=== PATIENT | female | born 1990 | race Hispanic/Latino ===

== ENCOUNTER 2019-08-11 12:10 | Emergency (ER) | payer OTHER, SELFPAY ==
--- NOTE | ~2019-08-11 | US_ITS ---
US right upper quadrant INDICATION: Right upper quadrant pain PROCEDURE: Realtime right upper abdominal ultrasound. COMPARISON: No prior studies for comparison. FINDINGS: The pancreas is normal without focal mass or pancreatic ductal dilation. Liver echotexture is normal without focal mass or intrahepatic biliary dilatation. There is normal directional flow i n the portal vein. There are gallstones with mild gallbladder wall thickening. Common bile duct measures 3 mm. No sono graphic Reynaga's sign. IMPRESSION: 1: Cholelithiasis with mild gallbladder wall thickening. Reviewed, dictated and finalized at location A.
[2019-08-11 12:12] VITALS: BP 98/71; PULSE 65; RESP 16; TEMP 36.1; O2SAT 100
--- NOTE | 2019-08-11 12:43 | ED.ABDPAIN ---
HPI - Abdominal Pain General Chief Complaint: Abdominal Pain Stated Complaint: abd pain Time Seen by Provider: 08/11/19 12:26 Source: patient Mode of arrival: ambulatory Limitations: no limitations History of Present Illness HPI narrative: This is a 29 year old female that presents to the ER for abdominal pain x 4 days. Reports the pain is constant and sharp. Relieved with using the restroom. Reports the pain is diffuse. She had a positive test yesterday. She had a tubal ligation last year. Reports her last period was 04/22/19. Denies fever, chest pain, shortness of breath, vomiting, dysuria, diarrhea, or vaginal bleeding. Related Data Allergies Allergy/AdvReac Type Severity Reaction Status Date / Time No Known Allergies Allergy Unverified 12/13/18 18:04 Review of Systems Review of Systems: Narrative: CONSTITUTIONAL: Denies fever CARDIOVASCULAR: Denies chest pain RESPIRATORY: Denies dyspnea. GASTROINTESTINAL: Reports abdominal pain. Denies nausea, vomiting, or diarrhea. GENITOURINARY: Denies dysuria or hematuria. All systems reviewed & are unremarkable except as noted in HPI and below PMFSH Surgical History Surgical History (Updated 08/11/19 @ 12:48 by Brooke Maldonado PA-C) History of History of tubal ligation Exam Narrative: Exam Narrative: GENERAL: Well-appearing, well-nourished, and in no acute distress. HEAD: Normocephalic, atraumatic. EYES: EOMI. CHEST: Clear to auscultation. No respiratory distress. No wheezes rales or rhonchi HEART: Regular rate and rhythm. No murmur heard. Normal peripheral pulses. ABDOMEN: Soft, nondistended, normal active bowel sounds. Mild tenderness to palpation of the RUQ, without guarding EXTREMITIES: Normal range of motion. No edema. SKIN: Warm, dry, no rash. NEURO: No focal deficits. Alert and oriented x3. PSYCH: Normal mood and affect Course Consultations Consultation #1: Spoke with Dr. Rodriguez about patient and work-up will follow-up in clinic Date: 08/11/19 Time: 15:15 Vital Signs Vital signs: Vital Signs Temperature 97.0 F L 08/11/19 12:12 Pulse Rate 65 08/11/19 12:12 Respiratory Rate 16 08/11/19 12:12 Blood Pressure 98/71 L 08/11/19 12:12 Pulse Oximetry 100 08/11/19 12:12 Temperature 97.0 F L 08/11/19 12:12 Pulse Rate 76 08/11/19 15:11 Respiratory Rate 12 08/11/19 15:11 Blood Pressure 100/65 08/11/19 15:11 Pulse Oximetry 99 08/11/19 15:11 MDM - Abdominal Pain MDM Narrative Medical decision making narrative: Patient presents the emergency department for intermittent right upper quadrant abdominal pain since this weekend. Reports a positive home test. She is afebrile and nontoxic-appearing. No leukocytosis on CBC. Metabolic panel is without acute changes. UA with white blood cells, red blood cells and leukoesterase. Also with many squamous epithelial cells. Patient is asymptomatic. Urine will go for a culture. Bedside and quantitative beta-hCG is negative. Suspect the patient let the home test go for too long before reading it. Right upper quadrant ultrasound shows cholelithiasis with mild gallbladder wall thickening. No sonographic Reynaga's sign. Patient was updated on case findings. Spoke with Dr. Rodriguez about patient and work-up. She is to follow-up in clinic. Patient was given warnings to return to the ER Lab Data Attestation: I reviewed the patient's lab results. Result diagrams: 08/11/19 13:08 08/11/19 13:08 Labs: Lab Results 08/11/19 08/11/19 08/11/19 Range/Units 13:08 13:08 13:08 WBC 4.8 (4.5-10.0) K/mm3 RBC 4.16 L (4.2-5.4) M/mm3 Hgb 12.3 (12.0-15.0) g/dL Hct 37.3 (37.0-47.0) % MCV 89.7 (80-100) fl MCH 29.6 (26-34) pg MCHC 33.0 (32-36) g/dl RDW 12.8 (11.5-14.5) % Plt Count 107 L (150-375) k/mm3 MPV 11.7 H (7.4-10.4) fl Immature Gran % (Auto) 0.4 (0-0.5) % Neut % (Auto) 72.6 (45
[2019-08-11 13:17] LABS: Basophils Percent Auto 0.4 % (0.2-1.2); Eosinophils Absolute Auto 0.1 K/mm3 (0-0.3); Eosinophils Percent Auto 1.5 % (0-4.4); Hematocrit 37.3 % (37.0-47.0); Hemoglobin 12.3 g/dL (12.0-15.0); Immature Granulocyte Absolute 0.02 K/mm3 (0.00-0.031); Immature Granulocyte Percent A 0.4 % (0-0.5); Immature Platelet Fraction Pct 6.1 % (0.9-11.2); Lymphocytes Absolute Auto 0.88 K/mm3 (0.9-3.2); Lymphocytes Percent Auto 18.4 % (18.3-44.2); Mean Corpuscular Hemoglobin 29.6 pg (26-34); Mean Corpuscular Volume 89.7 fl (80-100); Mean Platelet Volume 11.7 fl (7.4-10.4); Monocytes Absolute Auto 0.3 K/mm3 (0.1-0.6); Monocytes Percent Auto 6.7 % (2.6-8.5); Neutrophils Absolute Auto 3.5 K/mm3 (1.3-6.7); Neutrophils Percent Auto 72.6 % (45.5-73.1); Platelet Count Result 107 k/mm3 (150-375); Red Blood Count 4.16 M/mm3 (4.2-5.4); Red Cell Distribution Width 12.8 % (11.5-14.5); White Blood Count 4.8 K/mm3 (4.5-10.0)
[2019-08-11 13:20] LABS: Add Urine Microscopic? YES; Appearance Urine Cloudy (Clear); Bacteria Urine 2+ /hpf; Bilirubin Urine Negative (Negative); Blood Urine 2+ (Negative); Color Urine Yellow (Yellow); Glucose Urine UA Negative (Negative); Ketones Urine Negative (Negative); Leukocyte Esterase Ur 1+ LEU/UL (Negative); Mucus Urine Rare /lpf; Nitrate Urine Negative (Negative); Protein Urine 1+ mg/dL (Negative); RBC Urine 21-50 /hpf (0-2); Specific Grav Ur 1.017 (1.001-1.035); Squamous Epithelial Cell Urine Many /hpf (Few); Urobilinogen Urine Negative mg/dL (<2.0)
[2019-08-11 13:30] LABS: Lipase 32 U/L (23-300)
[2019-08-11 13:32] LABS: Alanine Aminotransferase 15 U/L (4-35); Albumin Level 4.1 g/dL (3.5-5.1); Alkaline Phosphatase 91 U/L (38-126); Aspartate Amino Transferase 19 U/L (14-36); Bilirubin,Total 0.2 mg/dL (0.2-1.3); Blood Urea Nitrogen 17 mg/dL (7-17); Calcium 8.8 mg/dL (8.4-10.2); Carbon Dioxide 26 mmol/L (22-30); Chloride 108 mmol/L (98-107); Estimated CRCL calculation 124 ml/min; Estimated Glomerular Filt Rate > 60; Glucose 79 mg/dL (65-105); Sodium 142 mmol/L (137-145)
[2019-08-11] MEDS: SODIUM CHLORIDE 0.9% IV 500 ML 999 ML IV CONT (13:43)
[2019-08-11 13:48] LABS: Beta HCG Quantitative < 2.39 mIU/ML
[2019-08-11] MEDS: ONDANSETRON INJ 4 MG/2 ML VIAL IV PUSH (14:11)
[2019-08-11 15:11] VITALS: BP 100/65; PULSE 76; RESP 12; O2SAT 99
== END 2019-08-11 15:30 | disposition home or self-care (01) ==
PROVIDERS: Physician Assistant; Emergency Provider Emergency Medicine
DX: K80.20 Calculus of gallbladder without cholecystitis without obstruction (principal)
CPT/HCPCS: 36415; 76705; 80053; 81001; 81025; 83690; 84702; 85025; 85055; 87077; 87086; 87088; 87186; 96365; 96375; 99284; J0131; J2405; J7040

== ENCOUNTER 2019-10-24 17:42 | Emergency (ER) | payer OTHER, SELFPAY ==
[2019-10-24 18:00] VITALS: BP 115/67; PULSE 78; RESP 18; O2SAT 100
[2019-10-24 18:02] VITALS: TEMP 36.3
--- NOTE | 2019-10-24 18:37 | ED.DENTAL ---
HPI - Dental/Oral General Chief complaint: Dental/Oral Stated complaint: toothache Time Seen by Provider: 10/24/19 18:37 Source: patient Mode of arrival: ambulatory Limitations: no limitations History of Present Illness HPI Narrative: Manisha Lundy is a 29 yo female with L sided tooth pain in tooth 14, 18- pain since Friday night and is not improving. Appointment 3 weeks Related Data Allergies Allergy/AdvReac Type Severity Reaction Status Date / Time No Known Allergies Allergy Unverified 12/13/18 18:04 Review of Systems Review of Systems: Narrative: CONSTITUTIONAL: Denies fever, chills, sweats. EYES: Denies visual changes, redness, discharge. ENT: Denies rhinorrhea, congestion, sore throat, otalgia. Dental pain in tooth 14 and 18 CARDIOVASCULAR: Denies chest pain, palpitations, edema. RESPIRATORY: Denies dyspnea, wheezing, cough GASTROINTESTINAL: Denies abdominal pain, nausea, vomiting, diarrhea. GENITOURINARY: Denies dysuria, hematuria, abnormal discharge SKIN: Denies rash or itching. NEUROLOGIC: Denies numbness, or focal weakness. PSYCHIATRIC: Denies anxiety or depression. [facility] Surgical History Surgical History History of History of tubal ligation Social History Social History Smoking status: Never smoker Alcohol intake: never Comments At time of signature, I agree with nursing past medical, surgical, social and family history. There is no relevant family history pertinent to the presenting complaint. Exam Narrative: Exam Narrative: GENERAL: This is a well-nourished, well-developed patient, in mild distress. HEAD: normocephalic, atraumatic. EYES: Sclera clear/white. Vision is grossly intact. EARS: External ears normal, auditory canals clear and without drainage, TMs normal without perforation. Hearing grossly intact. NOSE: External nose normal without nasal discharge, nares without redness, no rhinorrhea. THROAT: Mucous membranes moist, posterior pharynx erythema tooth 14 and 18 are fractured with gum swelling; generally poor dentition--not brushing teeth is food particles between teeth NECK: Neck supple, non-tender CARDIOVASCULAR: Regular rate and rhythm without murmurs, gallops, or rubs. RESPIRATORY: Clear to auscultation. Breath sounds equal bilaterally. No wheezes, rales, or rhonchi. GASTROINTESTINAL: Abdomen soft, non-tender, SKIN: warm, intact with no suspicious lesions or rash, good texture and turgor. NEURO: awake, alert, and oriented to person, place and time. There were no obvious focal neurologic abnormalities. Steady gait EXTREMITIES: Normal range of motion. BACK: Nontender without deformity Course Course Emergency Course: Started on penicillin VK as well as high-dose ibuprofen and a few tramadol for pain has a dental appointment 3 weeks advised patient to make sure she keeps that appointment Vital Signs Vital signs: Vital Signs Pulse Rate 78 10/24/19 18:00 Respiratory Rate 18 10/24/19 18:00 Blood Pressure 115/67 10/24/19 18:00 Pulse Oximetry 100 10/24/19 18:00 Temperature 97.4 F L 10/24/19 18:02 Pulse Rate 78 10/24/19 18:00 Respiratory Rate 18 10/24/19 18:00 Blood Pressure 115/67 10/24/19 18:00 Pulse Oximetry 100 10/24/19 18:00 MDM - Dental/Oral Differential Diagnosis Differential diagnosis: Likely gingival abscess, dental caries, fracture of tooth and other Discharge Plan Discharge Clinical Impression: Dental abscess, Toothache Patient Disposition: Home, Self-Care Condition: Stable Instructions: Antibiotic Form, Dental Abscess (ED) Additional Instructions: Dental appointment in 3 weeks-recommend keeping that appointment Gargle with salt water to get food particles on the mouth and continue to brush teeth Complete antibiotic prescription as prescribed Prescriptions: New penicillin V potassium 500 mg table
== END 2019-10-24 18:46 | disposition home or self-care (01) ==
PROVIDERS: Emergency Provider Nurse Practitioner
DX: K04.7 Periapical abscess without sinus (principal); K08.89 Other specified disorders of teeth and supporting structures
CPT/HCPCS: 99213; G0463

== ENCOUNTER 2019-11-01 10:08 | Emergency (ER) | payer OTHER, SELFPAY ==
[2019-11-01 10:17] VITALS: BP 108/59; PULSE 78; RESP 16; TEMP 36.6; O2SAT 99
--- NOTE | 2019-11-01 10:24 | ED.DENTAL ---
HPI - Dental/Oral General Chief complaint: Dental/Oral Stated complaint: toothache Time Seen by Provider: 11/01/19 10:20 Source: patient, RN notes reviewed and old records reviewed Mode of arrival: ambulatory Limitations: no limitations History of Present Illness HPI Narrative: Patient presents today complaining of left lower jaw swelling and tooth pain. Patient was seen 1 week ago at urgent care for same dental pain. She was given prescriptions for Pen-Vee K, ibuprofen, and tramadol. Reports she has been taking all medications as prescribed, but they are not helping. 2 days ago, she noticed swelling to her left lower jawline that has been worsening since that time. Denies fever, shortness of breath, or difficulty swallowing. Patient has an appointment with her dentist on November 16. She is also been using Orajel without relief. MD Complaint: tooth pain Related Data Allergies Allergy/AdvReac Type Severity Reaction Status Date / Time No Known Allergies Allergy Verified 11/01/19 10:21 Review of Systems Review of Systems: Narrative: CONSTITUTIONAL: Denies body aches, fever, chills, or sweats. EYES: Denies visual changes, redness, or discharge. ENT: Denies rhinorrhea, congestion, sore throat, or otalgia.+ Pain and facial swelling CARDIOVASCULAR: Denies chest pain, palpitations, or edema. RESPIRATORY: Denies cough or dyspnea. GASTROINTESTINAL: Denies abdominal pain, nausea, vomiting, or diarrhea. GENITOURINARY: Denies dysuria or hematuria. SKIN: Denies rash, itching, or wounds. MUSCULOSKELETAL: Denies back pain, joint pain, or myalgia. NEUROLOGIC: Denies headache, numbness, tingling, or weakness. PSYCH: Denies depression or anxiety. PMFSH Social History Social History Smoking status: Never smoker Alcohol intake: never Gender identity (if verbalized by the patient): Female Comments At time of signature, I have reviewed and agree with nursing past medical, surgical, social and family history unless otherwise noted. Please see nursing chart for further information. There is no relevant family history pertinent to the presenting complaint Exam Narrative: Exam Narrative: GENERAL: Well-appearing, well-nourished, and in no acute distress. HEAD: Normocephalic, atraumatic. EYES: EOMI. No redness or drainage. Conjunctivae normal. ENT: Mucous membranes pink and moist. Throat normal. Uvula midline. Poor dentition throughout. Tooth #18 is very decayed and black in color with a large cavity in the center. Moderate swelling of the left lower jaw. NECK: Normal AROM. Supple. No lymphadenopathy. CHEST: No respiratory distress. EXTREMITIES: Normal range of motion. No edema. SKIN: Warm, dry, no rash. Capillary refill normal. Normal skin turgor. NEURO: No focal deficits. Alert and oriented x3. Gait steady. PSYCH: Normal affect. No signs of depression or anxiety. Course Vital Signs Vital signs: Vital Signs Temperature 97.8 F 11/01/19 10:17 Pulse Rate 78 11/01/19 10:17 Respiratory Rate 16 11/01/19 10:17 Blood Pressure 108/59 L 11/01/19 10:17 Pulse Oximetry 99 11/01/19 10:17 Temperature 97.8 F 11/01/19 10:17 Pulse Rate 78 11/01/19 10:17 Respiratory Rate 16 11/01/19 10:17 Blood Pressure 108/59 L 11/01/19 10:17 Pulse Oximetry 99 11/01/19 10:17 Reviewed MDM - Dental/Oral Differential Diagnosis Differential diagnosis: Likely gingival abscess, dental caries, toothache, dental abscess and fracture of tooth Critical Care Time Critical Care Time Critical Care Time: No Discharge Plan Discharge Clinical Impression: Dental abscess Patient Disposition: Home, Self-Care Condition: Stable Instructions: Antibiotic Form, Dental Abscess (ED) Additional Instructions: Please stop the penicillin and start the clindamycin as directed. It is very important that you finish this course of antibiotics. Continue with your follow-up appoi
== END 2019-11-01 10:30 | disposition home or self-care (01) ==
PROVIDERS: Emergency Provider Nurse Practitioner
DX: K04.7 Periapical abscess without sinus (principal)
CPT/HCPCS: 99213; G0463

== ENCOUNTER 2020-10-14 14:42 | Emergency (ER) | payer OTHER, SELFPAY ==
[2020-10-14 14:59] VITALS: BP 101/65; PULSE 86; RESP 16; TEMP 36.7; O2SAT 99
--- NOTE | 2020-10-14 15:07 | ED.SKABFB ---
HPI - Skin/Abscess/Foreign Bdy General Chief complaint: Skin/Abscess/Foreign Body Stated complaint: rash/discharge vaginal Time Seen by Provider: 10/14/20 15:07 Source: patient, RN notes reviewed and old records reviewed Mode of arrival: ambulatory Limitations: no limitations History of Present Illness HPI narrative: 30 year old female who presents to [facility] care with complaints of rash to upper and inner bilateral thighs and to pubis which jefferson and is irritating. She also complains of vaginal discharge that is watery and light in color which is somewhat itchy, reports suprapubic pressure and burning with urination. Patient reports that she has had this rash before and got some cream which helped. Patient denies any concern for STD's. Patient denies any known fevers,chills or sweats, denies any abdominal pain, nausea or vomiting. MD complaint: rash Onset (ago): week(s) (1) Location: genitals Severity: moderate Severity scale (1-10): 5 Quality: burning, aching and pruritic Pain Consistency: constant Relieving factors: none Associated symptoms: itching Treatments prior to arrival: none Related Data Allergies Allergy/AdvReac Type Severity Reaction Status Date / Time No Known Allergies Allergy Verified 11/01/19 10:21 Review of Systems Review of Systems: Narrative: CONSTITUTIONAL: Denies fever, chills, or sweats. EYES: Denies visual changes, redness, or discharge. ENT: Denies rhinorrhea, congestion, sore throat, or otalgia. CARDIOVASCULAR: Denies chest pain, palpitations, or edema. RESPIRATORY: Denies cough or dyspnea. GASTROINTESTINAL: Denies abdominal pain, nausea, vomiting, or diarrhea. GENITOURINARY: Positive dysuria or hematuria,positive vaginal discharge SKIN: Positive for red inflamed rash inner groin and on pubis that is burning and itching. MUSCULOSKELETAL: Denies back pain, joint pain, or myalgia. NEUROLOGIC: Denies headache, numbness, or weakness. PSYCHIATRIC: Denies anxiety or depression. All systems reviewed & are unremarkable except as noted in HPI and below PMFSH Past Medical History Medical History (Updated 10/15/20 @ 00:00 by Delma Hall) Bipolar affective disorder Schizophrenia Surgical History Surgical History History of History of tubal ligation Family History Family History (Updated 10/14/20 @ 16:23 by Tiffanie Davila NP) Other Diabetes mellitus Social History Social History (Updated 10/14/20 @ 16:23 by Tiffanie Davila NP) Smoking status: Never smoker Alcohol intake: never Substance use: never Living arrangements: with family Gender identity (if verbalized by the patient): Female Exam Narrative: Exam Narrative: GENERAL: Well-appearing, well-nourished, and in no acute distress. HEAD: Normocephalic, atraumatic. EYES: PERRLA and EOMI. ENT: Nares clear, no rhinorrhea or epistaxis. Mucous membranes moist.TM's normal with NECK: Supple.no lymphadenopathy CHEST: Clear to auscultation. No respiratory distress., SAO2 99% on room air HEART: Regular rate and rhythm. No murmur heard. Normal peripheral pulses. ABDOMEN: Soft, nontender, nondistended, normal active bowel sounds. some burning with urination with no CVA tenderness noted, Vaginal drainage thin and white colored noted on pelvic examination with culture of drainage obtained and sent for analysis, vaginal pagan pink. EXTREMITIES: Normal range of motion. No edema. SKIN: Warm, dry, red inflamed tissue to pubis area and to inner groin area NEURO: No focal deficits. Alert and oriented x3. Course Vital Signs Vital signs: Vital Signs Temperature 36.7 C 10/14/20 14:59 Pulse Rate 86 10/14/20 14:59 Respiratory Rate 16 10/14/20 14:59 Blood Pressure 101/65 10/14/20 14:59 Pulse Oximetry 99 10/14/20 14:59 Temperature 36.7 C 10/14/20 14:59 Pulse Rate 86 10/14/20 14:59 Respiratory Rate 16 10/14/20 14:59 Blood Pressure 101/65 07
== END 2020-10-14 15:32 | disposition home or self-care (01) ==
PROVIDERS: Emergency Provider Registered Nurse
DX: N39.0 Urinary tract infection, site not specified (principal); B37.3 Candidiasis of vulva and vagina; L73.9 Follicular disorder, unspecified
CPT/HCPCS: 81003; 87070; 87086; 87088; 99214; G0463

== ENCOUNTER 2021-01-20 15:46 | Emergency (ER) | payer OTHER, SELFPAY ==
[2021-01-20 15:59] VITALS: BP 121/71; PULSE 86; TEMP 36.7; O2SAT 99
--- NOTE | 2021-01-20 17:11 | PC.NURSE ---
patient out in [place] complaining that she has not been seen by a provider.
--- NOTE | 2021-01-20 19:58 | ED.SKABFB ---
HPI - Skin/Abscess/Foreign Bdy General Chief complaint: Skin/Abscess/Foreign Body <Brooke Maldonado PA-C - Last Filed: 01/20/21 21:20> Stated complaint: rash <YONATHAN Sarmiento Last Filed: 01/20/21 21:20> Time Seen by Provider: 01/20/21 18:51 <Brooke Maldonado PA-C - Last Filed: 01/20/21 21:20> Source: patient <YONATHAN Sarmiento Last Filed: 01/20/21 21:20> Mode of arrival: ambulatory <YONATHAN Sarmiento Last Filed: 01/20/21 21:20> Limitations: no limitations <Brooke Maldonado PA-C - Last Filed: 01/20/21 21:20> History of Present Illness HPI narrative: This is a 30-year-old female that presents to the emergency department for a rash present over the last couple of days. Reports a painful rash in the genital region. Reports possible exposure to herpes. Also reports abnormal vaginal discharge. Denies fever or dysuria. <Brooke Maldonado PA-C - Last Filed: 01/20/21 21:20> Related Data Allergies/Adverse reactions: Allergies Allergy/AdvReac Type Severity Reaction Status Date / Time No Known Allergies Allergy Verified 11/01/19 10:21 <Brooke Maldonado PA-C - Last Filed: 01/20/21 21:20> Review of Systems Review of Systems: CONSTITUTIONAL: Denies fever GASTROINTESTINAL: Denies abdominal pain, nausea, vomiting GENITOURINARY: Denies dysuria or hematuria. SKIN: Reports rash and itching. <Brooke Maldonado PA-C - Last Filed: 01/20/21 21:20> All systems reviewed & are unremarkable except as noted in HPI and below <Brooke Maldonado PA-C - Last Filed: 01/20/21 21:20> [facility] Past Medical History Medical History: Medical History (Updated 01/21/21 @ 00:00 by Background Isabel) Bipolar affective disorder Schizophrenia <YONATHAN Sarmiento Last Filed: 01/20/21 21:20> Surgical History Surgical History: Surgical History History of History of tubal ligation <Brooke Maldonado PA-C - Last Filed: 01/20/21 21:20> Family History Family History: Family History (Updated 10/14/20 @ 16:23 by Tiffanie Davila NP) Other Diabetes mellitus <Brooke Maldonado PA-C - Last Filed: 01/20/21 21:20> Social History Social History: Social History (Updated 10/14/20 @ 16:23 by Tiffanie Davila NP) Smoking status: Never smoker Alcohol intake: never Substance use: never Gender identity (if verbalized by the patient): Female <Brooke Maldonado PA-C - Last Filed: 01/20/21 21:20> Exam Narrative: GENERAL: Well-appearing, well-nourished, and in no acute distress. HEAD: Normocephalic, atraumatic. EYES: EOMI. CHEST: Clear to auscultation. No respiratory distress. No wheezes rales or rhonchi HEART: Regular rate and rhythm. No murmur heard. Normal peripheral pulses. ABDOMEN: Soft, nontender, nondistended, normal active bowel sounds. EXTREMITIES: Normal range of motion. No edema. SKIN: Warm, dry, no rash. NEURO: No focal deficits. Alert and oriented x3. PSYCH: Normal mood and affect PELVIC: Erythematous rash present in the bilateral groin and labia majora. Moderate yellow cervical discharge. No CMT <YONATHAN Sarmiento Last Filed: 01/20/21 21:20> Course Vital Signs Vital signs: Vital Signs Temperature 36.7 C 01/20/21 15:59 Pulse Rate 86 01/20/21 15:59 Blood Pressure 121/71 01/20/21 15:59 Pulse Oximetry 99 01/20/21 15:59 Temperature 36.7 C 01/20/21 15:59 Pulse Rate 78 01/20/21 21:21 Respiratory Rate 18 01/20/21 21:21 Blood Pressure 136/70 01/20/21 21:21 Pulse Oximetry 100 01/20/21 21:21 <Brooke Maldonado PA-C - Last Filed: 01/20/21 21:20> MDM - Skin/Abscess/Foreign Bdy MDM Narrative Medical decision making narrative: Patient presents to the ER for genital rash and abnormal vaginal discharge. She is afebrile and nontoxic appearing. Vitals are stable. UA with evidence of urinary tract infection. Trichomonas was positive.
[2021-01-20 20:08] LABS: Add Urine Microscopic? YES; Appearance Urine Cloudy (Clear); Bacteria Urine Trace /hpf; Bilirubin Urine Negative (Negative); Blood Urine 3+ (Negative); Calcium Oxalate Crystals Urine Present /hpf; Color Urine Yellow (Yellow); Glucose Urine UA Negative (Negative); Ketones Urine Negative (Negative); Leukocyte Esterase Ur 3+ LEU/UL (Negative); Mucus Urine Rare /lpf; Nitrate Urine Positive (Negative); Protein Urine 1+ mg/dL (Negative); RBC Urine >75 /hpf (0-2); Squamous Epithelial Cell Urine Occasional /hpf (Few); Urobilinogen Urine Negative mg/dL (<2.0); WBC Urine 51-75 /hpf
[2021-01-20] MEDS: FLUCONAZOLE 150 MG TABLET PO (20:33)
[2021-01-20] MEDS: cefTRIAXone 1 GM VIAL 0.5 GM IM (21:15)
[2021-01-20] MEDS: LIDOCAINE HCL 1% LOCAL INJ 20 ML VIAL (21:16)
[2021-01-20 21:21] VITALS: BP 136/70; PULSE 78; RESP 18; O2SAT 100
== END 2021-01-20 21:30 | disposition home or self-care (01) ==
PROVIDERS: Physician Assistant; Emergency Provider Emergency Medicine
DX: A59.9 Trichomoniasis, unspecified (principal); Z20.2 Contact with and (suspected) exposure to infections with a predominantly sexual mode of transmission
CPT/HCPCS: 81001; 81025; 87070; 87077; 87086; 87088; 87186; 87491; 87591; 87808; 96372; 99284; A9270; J0696

== ENCOUNTER 2021-03-20 10:50 | Emergency (ER) | payer OTHER, SELFPAY ==
[2021-03-20 10:59] VITALS: BP 103/73; PULSE 68; RESP 16; TEMP 36.3; O2SAT 100
--- NOTE | 2021-03-20 11:16 | ED.FEMALEGU ---
HPI - Female Genitourinary General Chief complaint: Urogenital-Female Stated complaint: Vaginal discharge Time Seen by Provider: 03/20/21 11:17 Source: patient and family Mode of arrival: ambulatory Limitations: no limitations History of Present Illness HPI Narrative: Manisha is a 31-year-old female patient who ambulated into the [facility] today patient states for the last 6 days she has had thick white vaginal discharge. Patient states she has had a raised red rash on her inner thighs for 5 days. Patient states she has not used any [id number] medications. Patient had this rash 6 months ago and it did get better. MD elicited complaint: vaginal discharge Related Data Home Medications Medication Instructions Recorded Confirmed ergocalciferol (vitamin D2) 1,250 mcg PO DIRECTED 03/20/21 03/20/21 [Vitamin D2] paroxetine HCl 20 mg PO DAILY 03/20/21 03/20/21 topiramate 100 mg PO DAILY 03/20/21 03/20/21 trazodone 50 mg PO DAILY 03/20/21 03/20/21 Allergies Allergy/AdvReac Type Severity Reaction Status Date / Time No Known Allergies Allergy Verified 03/20/21 11:07 Review of Systems Review of Systems: CONSTITUTIONAL: Denies body aches, fever, chills, or sweats. EYES: Denies visual changes, redness, or discharge. ENT: Denies rhinorrhea, congestion, sore throat, or otalgia. CARDIOVASCULAR: Denies chest pain, palpitations, or edema. RESPIRATORY: Denies cough or dyspnea. GASTROINTESTINAL: Denies abdominal pain, nausea, vomiting, or diarrhea. GENITOURINARY: Denies dysuria or hematuria.+ white vaginal discharge SKIN: Denies rash, itching, or wounds.+ red raised rash on inner thighs MUSCULOSKELETAL: Denies back pain, joint pain, or myalgia. NEUROLOGIC: Denies headache, numbness, tingling, or weakness. PSYCH: Denies depression or anxiety. All systems reviewed & are unremarkable except as noted in HPI and below PMFSH Past Medical History Medical History Bipolar affective disorder Schizophrenia Surgical History Surgical History History of History of tubal ligation Family History Family History Other Diabetes mellitus Social History Social History Smoking status: Never smoker Alcohol intake: never Substance use: never Gender identity (if verbalized by the patient): Female Comments At time of signature, I have reviewed and agree with nursing past medical, surgical, social and family history unless otherwise noted. Please see nursing chart for further information. There is no relevant family history pertinent to the presenting complaint Exam Narrative: GENERAL: Well-appearing, well-nourished, and in no acute distress. HEAD: Normocephalic, atraumatic. EYES: EOMI. No redness or drainage. Conjunctivae normal. ENT: Mucous membranes pink and moist. Nares clear. . NECK: Normal AROM. Supple. N CHEST: No respiratory distress. : thick white vaginal discharge. MUSCULOSKELETAL: No bony tenderness. EXTREMITIES: Normal range of motion. No edema. SKIN: Warm, dry, . Capillary refill normal. Normal skin turgor. raised, erythemic rash along bialteral inner thighs. NEURO: No focal deficits. Alert and oriented x3. Gait steady. PSYCH: Normal affect. No signs of depression or anxiety. Course Vital Signs Vital signs: Vital Signs Temperature 36.3 C L 03/20/21 10:59 Pulse Rate 68 03/20/21 10:59 Respiratory Rate 16 03/20/21 10:59 Blood Pressure 103/73 03/20/21 10:59 Pulse Oximetry 100 03/20/21 10:59 Temperature 36.3 C L 03/20/21 10:59 Pulse Rate 68 03/20/21 10:59 Respiratory Rate 16 03/20/21 10:59 Blood Pressure 103/73 03/20/21 10:59 Pulse Oximetry 100 03/20/21 10:59 Reviewed MDM - Female Genitourinary MDM Narrative Medical decis
== END 2021-03-20 11:38 | disposition home or self-care (01) ==
PROVIDERS: Emergency Provider Nurse Practitioner Family
DX: B37.3 Candidiasis of vulva and vagina (principal)
CPT/HCPCS: 99213; G0463

== ENCOUNTER 2022-03-14 11:45 | Emergency (ER) | payer OTHER, SELFPAY ==
--- NOTE | 2022-03-14 11:52 | ED.SKABFB ---
HPI - Skin/Abscess/Foreign Bdy General Chief complaint: Skin/Abscess/Foreign Body Stated complaint: Dandruff in Head, Bald Spot Time Seen by Provider: 03/14/22 12:15 Source: patient and RN notes reviewed Mode of arrival: ambulatory Limitations: no limitations History of Present Illness HPI narrative: 32-year-old female presents with concern for an itchy spot on her scalp, dandruff. Reports she needs a note to return back to work. MD complaint: insect bite/sting Related Data Home Medications Medication Instructions Recorded Confirmed ergocalciferol (vitamin D2) 1,250 1,250 mcg PO DIRECTED 03/20/21 03/14/22 mcg (50,000 unit) capsule (Vitamin D2) paroxetine HCl 20 mg tablet 20 mg PO DAILY 03/20/21 03/14/22 topiramate 100 mg tablet 100 mg PO DAILY 03/20/21 03/14/22 trazodone 50 mg tablet 50 mg PO DAILY 03/20/21 03/14/22 paliperidone palmitate 156 mg/mL 156 mg IM DIRECTED 03/14/22 03/14/22 intramuscular syringe (Invega Sustenna) Allergies Allergy/AdvReac Type Severity Reaction Status Date / Time No Known Allergies Allergy Verified 03/14/22 12:00 Review of Systems Review of Systems: CONSTITUTIONAL: Denies malaise, chills, sweats, or fever. EYES: Denies redness, or discharge. ENT: Denies rhinorrhea, congestion, swollen lips, swollen tongue CARDIOVASCULAR: Denies chest pain, palpitations, or edema. RESPIRATORY: Denies cough or dyspnea. GASTROINTESTINAL: Denies abdominal pain, nausea, vomiting SKIN: Reports itchy scalp and dandruff MUSCULOSKELETAL: Denies joint pain or myalgia. NEUROLOGIC: Denies headache. All systems reviewed & are unremarkable except as noted in HPI and below PMFSH Past Medical History Medical History Bipolar affective disorder Schizophrenia Surgical History Surgical History History of History of tubal ligation Family History Family History Other Diabetes mellitus Social History Social History Smoking status: Never smoker Alcohol intake: never Substance use: never Gender identity (if verbalized by the patient): Female Comments At time of signature, agree with nursing past medical, surgical, social and family history. There is no relevant family history pertinent to the presenting complaint Exam Narrative: GENERAL: Well-appearing, well-nourished, and in no acute distress. HEAD: Normocephalic, atraumatic. EYES: PERRLA, conjunctivae clear, and EOMI. ENT: Mucous membranes moist. NECK: Supple. No lymphadenopathy CHEST: Clear to auscultation. No respiratory distress. HEART: Regular rate and rhythm. SKIN: Warm, dry. Small scabbed lesion noted the scalp without hair growth around it, head lice noted, nits throughout the hair NEURO: Alert and oriented x3. PSYCH: Normal mood and affect Course Course Emergency Course: Patient is aware of diagnosis, understands and agrees to treatment plan. Anticipatory guidance given. Patient agrees to follow-up as directed and is aware of reasons to seek care at the emergency department. Portions of this record may have been created with voice recognition software Level of Care: Express Care Visit Vital Signs Vital signs: Reviewed. MDM - Skin/Abscess/Foreign Bdy MDM Narrative Medical decision making narrative: Exam findings show no acute concerns or changes; patient is non-toxic appearing and is in no distress. Patient is appropriate for outpatient treatment and follow-up. Differential Diagnosis Differential diagnosis: Likely other (Tinea capitis, head lice, dandruff, contact dermatitis) Critical Care Time Critical Care Time Critical Care Time: No Discharge Plan Discharge Clinical Impression: Head lice Patient Disposition: Home, Self-Care Condition: Stable Instructions: Perm
[2022-03-14 11:54] VITALS: BP 106/92; PULSE 84; RESP 16; TEMP 36.4; O2SAT 99
== END 2022-03-14 12:28 | disposition home or self-care (01) ==
PROVIDERS: Emergency Provider Nurse Practitioner
DX: B85.0 Pediculosis due to Pediculus humanus capitis (principal)
CPT/HCPCS: 99213; G0463

== ENCOUNTER 2022-03-19 11:43 | Emergency (ER) | payer OTHER, SELFPAY ==
[2022-03-19 12:13] VITALS: BP 122/97; PULSE 118; RESP 20; TEMP 39.4; O2SAT 98
--- NOTE | 2022-03-19 12:42 | ED.GENADULT ---
HPI - General Adult General Chief complaint: Upper Respiratory Infection Stated complaint: Sore Throat, Coughing, Headache Source: patient Mode of arrival: ambulatory Limitations: no limitations History of Present Illness HPI narrative: Patient presents for evaluation of sick symptoms since last night. Symptoms include fever, nonproductive cough, headache, sore throat and shortness of breath with exertion. No nausea, vomiting, diarrhea. Her daughter recently had a cold but is feeling better. She is taking OTC flu medication for her symptoms but does not notice any improvement in her symptoms with the medication. She does not smoke. No additional complaints or concerns. Related Data Home Medications Medication Instructions Recorded Confirmed ergocalciferol (vitamin D2) 1,250 1,250 mcg PO DIRECTED 03/20/21 03/19/22 mcg (50,000 unit) capsule (Vitamin D2) paroxetine HCl 20 mg tablet 20 mg PO DAILY 03/20/21 03/19/22 topiramate 100 mg tablet 100 mg PO DAILY 03/20/21 03/19/22 trazodone 50 mg tablet 50 mg PO DAILY 03/20/21 03/19/22 paliperidone palmitate 156 mg/mL 156 mg IM DIRECTED 03/14/22 03/19/22 intramuscular syringe (Invega Sustenna) Allergies Allergy/AdvReac Type Severity Reaction Status Date / Time No Known Allergies Allergy Verified 03/19/22 11:59 Review of Systems Review of Systems: CONSTITUTIONAL: Reports fever. Denies chills EYES: Denies visual changes, redness, or discharge. ENT: Reports sore throat. Denies rhinorrhea, congestion, or otalgia. CARDIOVASCULAR: Denies chest pain, palpitations, or edema. RESPIRATORY: Reports nonproductive cough and shortness of breath. GASTROINTESTINAL: Denies abdominal pain, nausea, vomiting, or diarrhea. GENITOURINARY: Denies dysuria or hematuria. SKIN: Denies rash or itching. MUSCULOSKELETAL: Denies back pain, joint pain, or myalgia. NEUROLOGIC: Reports headache. Denies numbness, dizziness, or weakness. PSYCHIATRIC: Denies anxiety or depression. [facility] Past Medical History Medical History Bipolar affective disorder Schizophrenia Surgical History Surgical History History of History of tubal ligation Family History Family History Other Diabetes mellitus Social History Social History Smoking status: Never smoker Alcohol intake: never Substance use: never Gender identity (if verbalized by the patient): Female Sexual Orientation (if Verbalized by the Patient): Straight or Heterosexual Spiritual care concerns: No Exam Narrative: GENERAL: Well-appearing, well-nourished, and in no acute distress. HEAD: Normocephalic, atraumatic. EYES: PERRLA and EOMI. ENT: Nares clear, no rhinorrhea or epistaxis. Mucous membranes moist. Oropharynx without tonsillar hypertrophy exudate or other lesions. There is posterior pharyngeal erythema. Bilateral TMs pearly hurtado nonbulging NECK: Supple. No adenopathy or masses. No carotid bruits or JVD CHEST: Clear to auscultation. cough present on exam. No respiratory distress. No wheezes rales or rhonchi HEART: Regular rate and rhythm. No murmur heard. Normal peripheral pulses. ABDOMEN: Soft, nontender, nondistended, normal active bowel sounds. EXTREMITIES: Normal range of motion. No edema. SKIN: Warm, dry, no rash. NEURO: No focal deficits. Alert and oriented x3. PSYCH: Normal mood and affect. Course Course Emergency Course: This is a 32-year-old female who presented for evaluation of sick symptoms since last night. She is influenza A positive. Discussed risks versus benefits of Tamiflu. She would like to proceed with therapy. Increase hydration. [id number] agents for symptom management. Follow-up with primary this coming week. Tita
[2022-03-19] MEDS: ACETAMINOPHEN 500 MG TABLET 1000 MG PO (12:50)
== END 2022-03-19 12:58 | disposition home or self-care (01) ==
PROVIDERS: Emergency Provider Nurse Practitioner
DX: J10.1 Influenza due to other identified influenza virus with other respiratory manifestations (principal); Z20.822 Contact with and (suspected) exposure to COVID-19; F20.9 Schizophrenia, unspecified
CPT/HCPCS: 87081; 87426; 87804; 87880; 99213; A9270; C9803; G0463

== ENCOUNTER 2022-05-10 15:00 | Emergency (ER) | payer OTHER, SELFPAY ==
[2022-05-10 15:10] VITALS: BP 104/65; PULSE 84; RESP 18; TEMP 36.4; O2SAT 99
--- NOTE | 2022-05-10 15:44 | ED.GENADULT ---
HPI - General Adult General Chief complaint: Extremity Injury, Upper Stated complaint: Right Hand Pain Time Seen by Provider: 05/10/22 15:40 Source: patient, RN notes reviewed and old records reviewed Mode of arrival: ambulatory Limitations: no limitations History of Present Illness HPI narrative: 32 year old female who presents to [facility] care with complaints of right sided scapular pain which goes down her shoulder an a little up right side of her neck. Patient reports that she also has some discomfort in lower right arm below elbow going into hand at times. Patient states that she has had tis discomfort since Friday. 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 Patient denies any injury to her upper shoulder or scapular region with full mobility of right shoulder. Patient reports no tingling or numbness to right arm with strong pulses present.Patient states that she took Motrin which didn't help. MD complaint: right shoulder ,scapular and lower arm pain Onset (ago): day(s) (2) Location: right and upper extremity Severity scale (1-10): 10 Treatments prior to arrival: NSAID Related Data Allergies Allergy/AdvReac Type Severity Reaction Status Date / Time No Known Allergies Allergy Verified 05/10/22 15:28 Review of Systems Review of Systems: CONSTITUTIONAL: Denies fever, chills, or sweats. EYES: Denies visual changes, redness, or discharge. ENT: Denies rhinorrhea, congestion, sore throat, or otalgia. CARDIOVASCULAR: Denies chest pain, palpitations, or edema. RESPIRATORY: Denies cough or dyspnea. GASTROINTESTINAL: Denies abdominal pain, nausea, vomiting, or diarrhea. GENITOURINARY: Denies dysuria or hematuria. SKIN: Denies rash or itching. MUSCULOSKELETAL: Reports scapular area to upper right shoulder pain radiates to neck, and no lumbar back pain, joint pain, also pain below right elbow radiates to right hand with no numbness or tingling. NEUROLOGIC: Denies headache, numbness, or weakness. PSYCHIATRIC: Positive for anxiety or depression. All systems reviewed & are unremarkable except as noted in HPI and below PMFSH Past Medical History Medical History Bipolar affective disorder Schizophrenia Surgical History Surgical History History of History of tubal ligation Family History Family History Other Diabetes mellitus Social History Social History Smoking status: Never smoker Alcohol intake: never Substance use: never Living arrangements: with family Gender identity (if verbalized by the patient): Female Sexual Orientation (if Verbalized by the Patient): Straight or Heterosexual Spiritual care concerns: No Comments At time of signature, agree with nursing past medical, surgical, social and family history. There is no relevant family history pertinent to the presenting complaint Exam Narrative: GENERAL: Well-appearing, well-nourished, and in no acute distress. HEAD: Normocephalic, atraumatic. EYES: PERRLA and EOMI. ENT: Nares clear, no rhinorrhea or epistaxis. Mucous membranes moist. NECK: Supple. no lymphadenopathy CHEST: Clear to auscultation. No respiratory distress. no cough or congestion, SAO2 99% on room air HEART: Regular rate and rhythm. No murmur heard. Normal peripheral pulses. ABDOMEN: Soft, nontender, nondistended, normal active bowel sounds. EXTREMITIES: Normal range of motion. No edema noted Full ROM of right shoulder and right lower arm and hand SKIN: Warm, dry, no rash. NEURO: No focal deficits. Alert and oriented x3. Course Course Emergency Course: Patient is aware of diagnosis, understands and agrees to treatment plan.? Anticip
== END 2022-05-10 16:06 | disposition home or self-care (01) ==
PROVIDERS: Emergency Provider Registered Nurse; PCP Internal Medicine
DX: S46.811A Strain of other muscles, fascia and tendons at shoulder and upper arm level, right arm, initial encounter (principal); X58.XXXA Exposure to other specified factors, initial encounter; M77.11 Lateral epicondylitis, right elbow
CPT/HCPCS: 99213; G0463

== ENCOUNTER 2022-10-10 10:31 | Emergency (ER) | payer OTHER, SELFPAY ==
[2022-10-10 10:44] VITALS: BP 84/54; PULSE 91; RESP 16; TEMP 36.9; O2SAT 100
--- NOTE | 2022-10-10 10:45 | PC.NURSE ---
Patient in triage seems to be irritated by blood pressure cuff. Stated this is going to give me bruises . Pt also was irritated that she was put in the specific room we had her in saying why do you have to put me all the way back here? Patient was put in a normal exam room 2. Patient also asked if we were busy and wanted to know if she had to wait a long time. I did inform the patient anytime they come to express care they can assume that they will at least be here 45 min to 1 hour give or take due to what is going on in the clinic.
--- NOTE | 2022-10-10 11:00 | ED.EXTPRO ---
HPI - Extremity Problem General Chief complaint: Extremity Injury, Lower Stated complaint: toe pain left foot, itching right chest Time Seen by Provider: 10/10/22 10:51 Source: patient and RN notes reviewed Mode of arrival: ambulatory Limitations: no limitations History of Present Illness HPI Narrative: Patient presents today complaining of pain, drainage, and swelling to the left 1st toe x1 week. Currently rates her pain 6/10 and has tried no treatment prior to arrival. She is also complaining of a pruritic rash to her chest and upper back over the past 2 weeks. She has not tried any OTC meds prior to arrival. She has had any new household products, soaps, foods, plants or animal contacts. No other family members have a similar rash. Related Data Allergies Allergy/AdvReac Type Severity Reaction Status Date / Time No Known Allergies Allergy Verified 10/10/22 10:54 Review of Systems Review of Systems: CONSTITUTIONAL: Denies body aches, fever, chills, or sweats. EYES: Denies visual changes, redness, or discharge. ENT: Denies rhinorrhea, congestion, sore throat, or otalgia. CARDIOVASCULAR: Denies chest pain, palpitations, or edema. RESPIRATORY: Denies cough or dyspnea. GASTROINTESTINAL: Denies abdominal pain, nausea, vomiting, or diarrhea. GENITOURINARY: Denies dysuria or hematuria. SKIN: + pruritic rash, swelling, pain, and drainage to the left 1st toe MUSCULOSKELETAL: Denies back pain, joint pain, or myalgia. NEUROLOGIC: Denies headache, numbness, tingling, or weakness. PSYCH: Denies depression or anxiety. [facility] Past Medical History Medical History Bipolar affective disorder Schizophrenia Surgical History Surgical History History of History of tubal ligation Family History Family History Other Diabetes mellitus Social History Social History Smoking status: Never smoker Alcohol intake: never Substance use: never Living arrangements: with family Gender identity (if verbalized by the patient): Female Sexual Orientation (if Verbalized by the Patient): Straight or Heterosexual Spiritual care concerns: No Comments At time of signature, I have reviewed and agree with nursing past medical, surgical, social and family history unless otherwise noted. Please see nursing chart for further information. There is no relevant family history pertinent to the presenting complaint Exam Narrative: GENERAL: Well-appearing, well-nourished, and in no acute distress. HEAD: Normocephalic, atraumatic. EYES: EOMI. No redness or drainage. Conjunctivae normal. ENT: Mucous membranes pink and moist. NECK: Normal AROM. CHEST: No respiratory distress. EXTREMITIES: Left 1st toe: Moderate swelling to the lateral nail fold with yellow crusting discharge, erythema, and tenderness. SKIN: Warm, dry. Capillary refill normal. Normal skin turgor. Scattered hypopigmented skin that coalesces into larger patches, to the chest and upper and mid back. NEURO: No focal deficits. Alert and oriented x3. Gait steady. PSYCH: Normal affect. No signs of depression or anxiety. Course Course Level of Care: Express Care Visit Vital Signs Vital signs: Vital Signs Temperature 98.5 F 10/10/22 10:44 Pulse Rate 91 10/10/22 10:44 Respiratory Rate 16 10/10/22 10:44 Blood Pressure 84/54 L 10/10/22 10:44 Pulse Oximetry 100 10/10/22 10:44 Oxygen Delivery Room Air 10/10/22 10:44 Temperature 98.5 F 10/10/22 10:44 Pulse Rate 91 10/10/22 10:44 Respiratory Rate 16 10/10/22 10:44 Blood Pressure 84/54 L 10/10/22 10:44 Pulse Oximetry 100 10/10/22 10:44 Oxygen Delivery Room Air 10/10/22 10:44 Reviewed MDM - Extremity (Nontraumatic) MDM
== END 2022-10-10 11:08 | disposition home or self-care (01) ==
PROVIDERS: Emergency Provider Nurse Practitioner
DX: L60.0 Ingrowing nail (principal); B36.0 Pityriasis versicolor
CPT/HCPCS: 99213; G0463

== ENCOUNTER 2023-11-01 15:21 | Emergency (ER) | payer MEDICAID, SELFPAY ==
--- NOTE | ~2023-11-01 | XR_ITS ---
EXAMINATION: XR hand RT min 3V DATE: 11/01/2023 15:39 INDICATION: Pain at base of the right fourth finger TECHNIQUE: Posteroanterior, oblique and lateral views of the right hand were obtained. COMPARISON: None. FINDINGS: Alignment is normal. No fracture. Joint spaces are relatively preserved. Soft tissues are unremarkabl e. IMPRESSION: 1. Negative right hand radiographs. Reviewed, dictated and finalized at location A.
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
[2023-11-01 15:30] VITALS: BP 141/102; PULSE 102; RESP 18; TEMP 36.6; O2SAT 100
== END 2023-11-01 16:00 | disposition home or self-care (01) ==
PROVIDERS: Emergency Provider Nurse Practitioner; PCP Family Medicine
DX: S60.221A Contusion of right hand, initial encounter (principal); W22.8XXA Striking against or struck by other objects, initial encounter
CPT/HCPCS: 73130; 99213; G0463

== ENCOUNTER 2024-03-24 13:11 | Emergency (ER) | payer MEDICAID, SELFPAY ==
--- NOTE | ~2024-03-24 | CT_ITS ---
EXAMINATION: CT abdomen pelvis w con DATE: 03/24/2024 18:47 INDICATION: Abdominal pain. TECHNIQUE: Computed tomography (CT) of the abdomen and pelvis was performed with 100 mL Omnipaque 350 intravenous contrast. Automated exposure control and iterative reconstruction technique were employe d. The dose-length product was 1417.40 mGy-cm. COMPARISON: CT abdomen and pelvis 02/19/2013 FINDINGS: The visualized portions of the lung bases demonstrate mild atelectasis. No pleural effusion . The heart size is normal. No pericardial effusion. The liver, gallbladder, spleen, pancreas, adrena l glands, and kidneys are normal. There are no dilated loops of bowel. The appendix is normal. There is a small sliding hiatal hernia. There are no pathologically enlarged lymph nodes. There is no ascit es. There is mild thoracic spondylosis. IMPRESSION: 1. Small sliding hiatal hernia. Reviewed, dictated and finalized at location [facility]. [facility]
[2024-03-24 13:30] VITALS: BP 118/78; PULSE 76; RESP 18; TEMP 36.2; O2SAT 99
--- NOTE | 2024-03-24 14:48 | ED_ITS ---
HPI - Abdominal Pain General Chief Complaint: Abdominal Pain Stated Complaint: abd pain Time Seen by Provider: 03/24/24 14:48 Focused HPI: This is a 34 year old female that presents to the ER for diffuse abdominal pain. Ongoing over the last 2 weeks. Reports nausea and vomiting. Reports weakness. Denies fever, diarrhea, dysuria. GENERAL: Well-appearing, well-nourished, and in no acute distress. HEAD: Normocephalic, atraumatic. CHEST: Clear to auscultation. ?No respiratory distress. HEART: Regular rate and rhythm.? NEURO: ?Alert and oriented x3. Patient screened in triage and initial orders placed.? ?Additional care and disposition to be based upon?diagnostic testing and treatment. Related Data Home Medications ?Medication ?Instructions ?Recorded ?Confirmed ?Last Taken ?Type cyclobenzaprine 10 mg tablet 10 mg PO TID 11/01/23 11/01/23 Unknown History naproxen 500 mg tablet 500 mg PO BID 11/01/23 11/01/23 Unknown History Allergies Allergy/AdvReac Type Severity Reaction Status Date / Time No Known Allergies Allergy Verified 11/01/23 15:24 [facility] Past Medical History Medical History Bipolar affective disorder Schizophrenia Surgical History Surgical History History of History of tubal ligation Family History Family History Other Diabetes mellitus Social History Social History Smoking status: Never smoker Alcohol intake: never Substance use: never Living arrangements: with family Gender identity (if verbalized by the patient): Female Sexual Orientation (if Verbalized by the Patient): Straight or Heterosexual Spiritual care concerns: No Course Vital Signs Vital signs: Vital Signs Temperature 97.2 F L 03/24/24 13:30 Pulse Rate 76 03/24/24 13:30 Respiratory Rate 18 03/24/24 13:30 Blood Pressure 118/78 03/24/24 13:30 Pulse Oximetry 99 03/24/24 13:30 Temperature 97.2 F L 03/24/24 13:30 Pulse Rate 76 03/24/24 13:30 Respiratory Rate 18 03/24/24 13:30 Blood Pressure 118/78 03/24/24 13:30 Pulse Oximetry 99 03/24/24 13:30 Discharge Plan Discharge Instructions: Antibiotic Form Patient Language: [place] Prescriptions: No Action cyclobenzaprine 10 mg tablet 10 mg PO TID naproxen 500 mg tablet 500 mg PO BID Follow-up/Referrals: Aishwarya,Alec Foster MD [Primary Care Provider] -
--- NOTE | 2024-03-24 17:20 | PC.NURSE ---
Pt seen eating snack from vending machine in waiting room.
--- NOTE | 2024-03-24 17:39 | ED_ITS ---
HPI - Abdominal Pain General Chief Complaint: Abdominal Pain Stated Complaint: abd pain Time Seen by Provider: 03/24/24 14:48 Source: patient Mode of arrival: ambulatory Limitations: no limitations History of Present Illness HPI narrative: 34 YEARS OLD WHITE FEMALE DROVE HERSELF TO THE EMERGENCY ROOM COMPLAINING OF INTERMITTENT DIFFUSE ABDOMINAL PAIN FOR THE LAST 2 WEEKS, DULL ACHING, WORSE WITH MOVEMENT AND ACTIVITIES, BETTER WHEN SHE GOES SLEEP. ASSOCIATED WITH VOMITING 1-2 TIMES A DAY FOR THE LAST 2 DAYS. SHE DENIES ANY FEVER, CHILLS, DIARRHEA, CONSTIPATION, VAGINAL BLEEDING OR DISCHARGE. HISTORY OF AND BILATERAL TUBAL LIGATION PATIENT DOES NOT TAKE MEDICINE AT HOME. PATIENT'S 108 KG. Related Data Home Medications ?Medication ?Instructions ?Recorded ?Confirmed ?Last Taken ?Type cyclobenzaprine 10 mg tablet 10 mg PO TID 11/01/23 11/01/23 Unknown History naproxen 500 mg tablet 500 mg PO BID 11/01/23 11/01/23 Unknown History Allergies Allergy/AdvReac Type Severity Reaction Status Date / Time No Known Allergies Allergy Verified 11/01/23 15:24 Review of Systems 2 Review of Systems: All systems reviewed & are unremarkable except as noted in HPI and below PMFSH Past Medical History Medical History Schizophrenia Bipolar affective disorder Surgical History Surgical History History of History of tubal ligation Family History Family History Other Diabetes mellitus Social History Social History Smoking status: Never smoker Alcohol intake: never Substance use: never Living arrangements: with family Gender identity (if verbalized by the patient): Female Sexual Orientation (if Verbalized by the Patient): Straight or Heterosexual Spiritual care concerns: No Exam 2 Narrative: GENERAL APPEARANCE: WELL-DEVELOPED, WELL-NOURISHED SKIN: NORMAL COLOR HEAD: NORMOCEPHALIC, NONTRAUMATIC EYES: CLEAR CONJUNCTIVA ENT: OROPHARYNX NORMAL, EARS NORMAL, NOSE NORMAL NECK: SUPPLE, NONTENDER CHEST AND RESPIRATORY: AIRWAY PATENT, NO RESPIRATORY DISTRESS, NO ACCESSORY MUSCLE USE HEART: REGULAR RATE/RHYTHM ABDOMEN: SOFT, DIFFUSE TENDERNESS, NO ORGANOMEGALY, QUIET BOWEL SOUNDS VASCULAR: NORMAL PERIPHERAL PULSES, NORMAL CAPILLARY REFILL. MUSCULOSKELETAL: NORMAL RANGE OF MOTION, NONTENDER BACK NEUROLOGIC: ALERT AND ORIENTED ?3, CLINICAL DOCUMENT IMPROVEMENT EDUCATOR IS NORMAL TESTED, NO GROSS MOTOR DEFICIT Course Vital Signs Vital signs: Vital Signs Temperature 36.2 C L 03/24/24 13:30 Pulse Rate 76 03/24/24 13:30 Respiratory Rate 18 03/24/24 13:30 Blood Pressure 118/78 03/24/24 13:30 Pulse Oximetry 99 03/24/24 13:30 Temperature 36.2 C L 03/24/24 13:30 Pulse Rate 80 03/24/24 18:02 Respiratory Rate 16 03/24/24 18:02 Blood Pressure 126/83 03/24/24 18:02 Pulse Oximetry 99 03/24/24 18:02 MDM - Abdominal Pain MDM Narrative Medical decision making narrative: PATIENT DROVE HERSELF TO THE EMERGENCY ROOM COMPLAINING OF INTERMITTENT DIFFUSE ABDOMINAL PAIN VITAL SIGNS ARE STABLE PHYSICAL EXAMINATION CONSISTENT WITH DIFFUSE TENDERNESS, MILD TO MODERATE OTHERWISE INSIGNIFICANT DIFFERENTIAL DIAGNOSIS INCLUDE DIVERTICULITIS, COLITIS, CHOLECYSTITIS, URINARY TRACT INFECTION, CONSTIPATION, PANCREATITIS, STRESS INDUCED SYMPTOMS BLOOD WORKUP TODAY INCLUDES CBC, CMP, LIPASE SHOWED NO SIGNIFICANT ABNORMALITY IS URINALYSIS SHOWED 2+ OF BLOOD, RECENT CYCLE CT ABDOMEN AND PELVIS WITH IV CONTRAST SHOWED HIATAL HERNIA DIAGNOSIS ABDOMINAL PAIN OF UNKNOWN ETIOLOGY DISCHARGE ON BENTYL, ZOFRAN. THE PT WAS DISCHARGED TO HOME.THE PT,S CONDITION UPON DISCHARGE WAS FAIR,EDUCATION WAS PROVIDED TO THE PT IN REFERENCE TO THE FINAL IMPRESSION,DISCHARGE STUDY RESULTS,TREATMENT,PROGNOSIS AND NEED FOR FOLLOW UP . Differential Diagnosis Differential diagnosis: Likely other ( ABOVE) Medical Records Attestation: I reviewed the patient's medical records. Lab Data Attestation: I reviewed the patient's lab results. 03/24/24 17:57 03/24/24 17:57 Labs: Lab Results 03/24/24 03/24/24 03/24/24 Range/Units 17:57 18:11 18:12 WBC 4.4 L (4.5-10.0) K/mm3 RBC 3.92 L (4.2-5.4) M/mm3 Hgb 12.1 (12.0-15.0) g/dL Hct 34.7 L (37.0-47.0) % MCV 88.5 (80-100) fl MCH 30.9 (26-34) pg MCHC 34.9 (32-36) g/dl RDW 12.1 (11.5-14.5) % Plt Count 121 L (150-375) k/mm3 MPV 11.6 H (7.4-10.4) fl Immature Gran % (Auto) 0.5 (0-0.5) % Neut % (Auto) 66.2 (45.5-73.1) % Lymph % (Auto) 24.5 (18.3-44.2) % Ramsey % (Auto) 6.3 (2.6-8.5) % Eos % (Auto) 2.0 (0-4.4) % Baso % (Auto) 0.5 (0.2-1.2) % Lymph # (Auto) 1.09 (0.9-3.2) K/mm3 Ramsey # (Auto) 0.3 (0.1-0.6) K/mm3 Eos # (Auto) 0.1 (0-0.3) K/mm3 Baso # (Auto) 0.0 (0.0-0.1) K/mm3 Abs Immat Gran (auto) 0.02 (0.00-0.031) K/mm3 Absolute Neuts (auto) 2.9 (1.3-6.7) K/mm3 Absolute Nucleated RBC 0.000 (0.0-0.012) K/mm3 Nucleated RBC % 0.0 (0.0-0.2) % % Immature Plt Fraction 5.4 (0.9-11.2) % Sodium 138 (137-145) mmol/L Potassium 3.4 (3.4-5.0) mmol/L Chloride 109 H (98-107) mmol/L Carbon Dioxide 26 (22-30) mmol/L Anion Gap 3 L (4-12) mmol/L BUN 13 (7-17) mg/dL Creatinine 0.50 L (0.7-1.0) mg/dL Estim Creat Clear Calc 144 ml/min Estimated GFR > 60 (59 - ) Glucose 89 (65-110) mg/dL Calcium 9.4 (8.4-10.2) mg/dL Total Bilirubin 0.4 (0.2-1.3) mg/dL AST 24 (14-36) U/L ALT 20 (6-35) U/L Alkaline Phosphatase 93 (38-126) U/L Total Protein 7.0 (6.3-8.2) g/dL Albumin 4.3 (3.5-5.1) g/dL Lipase 44 (23-300) U/L Urine Color Yellow (Yellow) Urine Appearance Cloudy H (Clear) Urine pH 5.5 (5.0-9.0) Ur Specific [place] 1.026 (1.001-1.035) Urine Protein Trace (Negative) mg/dL Urine Glucose (UA) Negative (Negative) mg/dL Urine Ketones Trace H (Negative) mg/dL Ur Blood (Man) 2+ H (Negative) Urine Nitrate Negative (Negative) Urine Bilirubin Negative (Negative) Urine Urobilinogen 1.0 (<2.0) mg/dL Add Ur Microanalysis Reviewed Leukocyte Esterase Rfl Negative (Negative) LALITO/UL Urine RBC 21-50 H (0-2) /hpf Urine WBC 0-5 (0-3) /hpf Ur Squamous Epith Cells Few (Few) /hpf Urine Bacteria 1+ H /hpf Urine Casts 0-2 POC Urine HCG, Qual Negative (Negative) Imaging Data Radiologist's impression: ITS Impressions Abdomen/Pelvis CT 03/24/24 18:50 IMPRESSION: 1. Small sliding hiatal hernia. Critical Care Time Critical Care Time Critical Care Time: No Discharge Plan Discharge Clinical Impression: Abdominal pain Patient Disposition: Home, Self-Care Condition: Stable Instructions: Abdominal Pain (ED) Patient Language: German Prescriptions: New dicyclomine 20 mg tablet 20 mg PO QID Qty: 20 0RF ondansetron 4 mg tablet,disintegrating 4 mg PO Q4H PRN (Reason: nausea and vomiting) 3 Days Qty: 10 0RF No Action cyclobenzaprine 10 mg tablet 10 mg PO TID naproxen 500 mg tablet 500 mg PO BID Follow-up/Referrals: Aishwarya,Alec Foster MD [Primary Care Provider] - Stand Alone Forms: Work/School Release IP
[2024-03-24 18:02] VITALS: BP 126/83; PULSE 80; RESP 16; O2SAT 99
[2024-03-24] MEDS: SODIUM CHLORIDE 0.9% IV 1,000 ML 999 ML IV CONT (18:09)
--- NOTE | 2024-03-24 18:12 | PC.NURSE ---
Pt. denies current nausea. Zofran not administered at this time.
[2024-03-24 18:13] LABS: BEDSIDEPREGUCG Negative (Negative)
[2024-03-24 18:17] LABS: Basophils Percent Auto 0.5 % (0.2-1.2); Eosinophils Absolute Auto 0.1 K/mm3 (0-0.3); Hematocrit 34.7 % (37.0-47.0); Hemoglobin 12.1 g/dL (12.0-15.0); Immature Granulocyte Absolute 0.02 K/mm3 (0.00-0.031); Immature Granulocyte Percent A 0.5 % (0-0.5); Immature Platelet Fraction Pct 5.4 % (0.9-11.2); Lymphocytes Absolute Auto 1.09 K/mm3 (0.9-3.2); Lymphocytes Percent Auto 24.5 % (18.3-44.2); Mean Corpuscular HGB Conc 34.9 g/dl (32-36); Mean Corpuscular Hemoglobin 30.9 pg (26-34); Mean Corpuscular Volume 88.5 fl (80-100); Mean Platelet Volume 11.6 fl (7.4-10.4); Monocytes Absolute Auto 0.3 K/mm3 (0.1-0.6); Monocytes Percent Auto 6.3 % (2.6-8.5); Neutrophils Absolute Auto 2.9 K/mm3 (1.3-6.7); Neutrophils Percent Auto 66.2 % (45.5-73.1); Platelet Count Result 121 k/mm3 (150-375); Red Blood Count 3.92 M/mm3 (4.2-5.4); Red Cell Distribution Width 12.1 % (11.5-14.5); White Blood Count 4.4 K/mm3 (4.5-10.0)
[2024-03-24 18:26] LABS: Alanine Aminotransferase 20 U/L (6-35); Albumin Level 4.3 g/dL (3.5-5.1); Alkaline Phosphatase 93 U/L (38-126); Anion Gap 3 mmol/L (4-12); Aspartate Amino Transferase 24 U/L (14-36); Bilirubin,Total 0.4 mg/dL (0.2-1.3); Blood Urea Nitrogen 13 mg/dL (7-17); Calcium 9.4 mg/dL (8.4-10.2); Carbon Dioxide 26 mmol/L (22-30); Chloride 109 mmol/L (98-107); Estimated CRCL calculation 144 ml/min; Estimated Glomerular Filt Rate > 60; Glucose 89 mg/dL (65-110); Lipase 44 U/L (23-300); Potassium 3.4 mmol/L (3.4-5.0); Sodium 138 mmol/L (137-145)
[2024-03-24 18:50] LABS: Add Urine Microscopic? YES; Appearance Urine Cloudy (Clear); Bacteria Urine 1+ /hpf; Bilirubin Urine Negative (Negative); Blood Urine 2+ (Negative); Color Urine Yellow (Yellow); Glucose Urine UA Negative (Negative); Ketones Urine Trace mg/dL (Negative); Leukocyte Esterase Ur Negative LEU/UL (Negative); Need Manual Microscopic Reviewed; Nitrate Urine Negative (Negative); Non Pathogenic Casts 0-2; Protein Urine Trace mg/dL (Negative); RBC Urine 21-50 /hpf (0-2); Specific Grav Ur 1.026 (1.001-1.035); Squamous Epithelial Cell Urine Few /hpf (Few); WBC Urine 0-5 /hpf (0-3); pH Urine 5.5 (5.0-9.0)
--- NOTE | 2024-03-24 19:26 | PC.NURSE ---
Pt. did not want to stay to complete fluid bolus. Only 500mL infused. See MAR.
[2024-03-24 19:27] VITALS: BP 135/70; PULSE 78; RESP 16; O2SAT 98
== END 2024-03-24 19:31 | disposition home or self-care (01) ==
PROVIDERS: Physician Assistant; Emergency Provider Emergency Medicine; PCP Family Medicine
DX: R10.9 Unspecified abdominal pain (principal); K44.9 Diaphragmatic hernia without obstruction or gangrene
CPT/HCPCS: 36415; 74177; 80053; 81001; 81025; 83690; 85025; 85055; 96360; 99284; J7030; Q9967

== ENCOUNTER 2024-07-18 15:35 | Emergency (ER) | payer MEDICAID, SELFPAY ==
[2024-07-18 15:45] VITALS: BP 109/64; PULSE 84; RESP 16; TEMP 36.4; O2SAT 99
--- NOTE | 2024-07-18 16:10 | ED_ITS ---
HPI - Extremity Injury (Lower) General Chief Complaint: Extremity Injury, Lower Stated Complaint: left knee hurts Time Seen by Provider: 07/18/24 15:48 Source: patient and RN notes reviewed Mode of arrival: ambulatory Limitations: no limitations History of Present Illness HPI Narrative: Patient presents today with a one-week history of medial left knee pain. States she noted the pain while she was sitting at a alliance party and went to stand up. Denies any injury or trauma. States pain is intermittent. She currently rates her pain 10/10. She has not tried any [id number] interventions prior to arrival. Pain increases with weight-bearing. Related Data Allergies Allergy/AdvReac Type Severity Reaction Status Date / Time No Known Allergies Allergy Verified 07/18/24 15:38 Review of Systems Review of Systems: CONSTITUTIONAL: Denies body aches, fever, chills, or sweats. EYES: Denies visual changes, redness, or discharge. ENT: Denies rhinorrhea, congestion, sore throat, or otalgia. CARDIOVASCULAR: Denies chest pain, palpitations, or edema. RESPIRATORY: Denies cough or dyspnea. GASTROINTESTINAL: Denies abdominal pain, nausea, vomiting, or diarrhea. GENITOURINARY: Denies dysuria or hematuria. SKIN: Denies rash, itching, or wounds. MUSCULOSKELETAL: Denies back pain, or myalgia.+ left knee pain NEUROLOGIC: Denies headache, numbness, tingling, or weakness. PSYCH: Denies depression or anxiety. [facility] Past Medical History Medical History Schizophrenia Bipolar affective disorder Surgical History Surgical History History of History of tubal ligation Family History Family History Other Diabetes mellitus Social History Social History Smoking status: Never smoker Alcohol intake: never Substance use: never Living arrangements: with family Gender identity (if verbalized by the patient): Female Sexual Orientation (if Verbalized by the Patient): Straight or Heterosexual Spiritual care concerns: No Comments At time of signature, I have reviewed and agree with nursing past medical, surgical, social and family history unless otherwise noted. Please see nursing chart for further information. There is no relevant family history pertinent to the presenting complaint Exam Narrative: GENERAL: Well-appearing, well-nourished, and in no acute distress. HEAD: Normocephalic, atraumatic. EYES: EOMI. No redness or drainage. Conjunctivae normal. ENT: Mucous membranes pink and moist. NECK: Normal AROM. CHEST: No respiratory distress. EXTREMITIES: Left knee: Mild tenderness medially. No tenderness laterally. No edema noted. No erythema or ecchymosis noted. No bony tenderness of the patella. No tenderness to the patellar tendon. No posterior tenderness. Distal sensation intact. Capillary refill normal. Pedal pulse normal. Pain with passive internal and external rotation as well as active extension. SKIN: Warm, dry, no rash. Capillary refill normal. Normal skin turgor. NEURO: No focal deficits. Alert and oriented x3. Gait steady. PSYCH: Normal affect. No signs of depression or anxiety. Course Course Level of Care: Express Care Visit Vital Signs Vital signs: Vital Signs Temperature 97.6 F 07/18/24 15:45 Pulse Rate 84 07/18/24 15:45 Respiratory Rate 16 07/18/24 15:45 Blood Pressure 109/64 07/18/24 15:45 Pulse Oximetry 99 07/18/24 15:45 Oxygen Delivery Room Air 07/18/24 15:45 Temperature 97.6 F 07/18/24 15:45 Pulse Rate 84 07/18/24 15:45 Respiratory Rate 16 07/18/24 15:45 Blood Pressure 109/64 07/18/24 15:45 Pulse Oximetry 99 07/18/24 15:45 Oxygen Delivery Room Air 07/18/24 15:45 Reviewed MDM - Extremity Injury (Lower) MDM Narrative Medical decision making narrative: Patient has not had a traumatic injury. Will treat with meloxicam. Recommend PCP or orthopedic follow-up in 7-10 days if symptoms are not improving. Patient agrees with plan. Anticipatory guidance given. Differential Diagnosis Differential diagnosis: Likely other (Knee strain, tendinitis, meniscus injury, ligamentous injury, osteoarthritis) Critical Care Time Critical Care Time Critical Care Time: No Discharge Plan Discharge Clinical Impression: Strain of left knee Patient Disposition: Home, Self-Care Condition: Stable Instructions: Knee Pain (ED) Additional Instructions: Please take the meloxicam as prescribed. Elevate and ice the knee as well. Rest. Follow-up with orthopedics in 7-10 days if symptoms are not improving. Patient Language: Mexican Prescriptions: New meloxicam 15 mg tablet 15 mg PO DAILY Qty: 15 0RF Follow-up/Referrals: iMchel Neff MD [Primary Care Provider] - Braulio Chen MD [Physician] - Stand Alone Forms: Work/School Release IP Time of Disposition: 16:12
== END 2024-07-18 16:15 | disposition home or self-care (01) ==
PROVIDERS: Emergency Provider Nurse Practitioner; PCP Internal Medicine
DX: S86.912A Strain of unspecified muscle(s) and tendon(s) at lower leg level, left leg, initial encounter (principal); X58.XXXA Exposure to other specified factors, initial encounter
CPT/HCPCS: 99213; G0463

== ENCOUNTER 2024-09-22 22:13 | Emergency (ER) | payer OTHER, SELFPAY ==
--- NOTE | ~2024-09-22 | CT_ITS ---
CT of the Abdomen and Pelvis: Indication: Abdominal pain Technique: 2.5 mm axial scans were obtained through the abdomen and pelvis following intravenous adm inistration of 100 cc of Omnipaque 350. Dose reduction technique was used on this scan by utilizing a utomated exposure control and iterative reconstruction technique. The dose-length product (DLP) was 1 345.34 mGy-cm. COMPARISON: 03/24/2024 Findings: Scans through the lung bases are unremarkable. The liver, spleen, pancreas, adrenals and kidneys are within normal limits. Gallbladder is markedly d istended. Questionable subtle gallstone near the gallbladder neck. No definite gallbladder wall thick ening. No evidence of aortic aneurysm. No lymphadenopathy. No bowel obstruction or bowel wall thickening. There is no evidence to suggest acute appendicitis. Images through the pelvis were performed. Urinary bladder unremarkable. No pelvic mass seen. No ascit es. Impression: Markedly distended gallbladder with questionable subtle gallstone. No definite gallbladder wall thick ening or inflammatory change. If clinical symptoms are felt to be referable to the gallbladder, then consider ultrasound and/or HIDA scan for further evaluation. Reviewed, dictated and finalized at [facility]. Impression: Markedly distended gallbladder with questionable subtle gallstone. No definite gallbladder wall thickening or inflammatory change. If clinical symptoms are fe lt to be referable to the gallbladder, then consider ultrasound and/or HIDA sca n for further evaluation.
--- NOTE | ~2024-09-22 | XR_ITS ---
Portable chest x-ray Comparison: None Clinical History: Chest pain Findings: Lungs are clear, without focal consolidation or pleural effusion. Cardiomediastinal silho uette is unremarkable. Bones and soft tissues are unremarkable. Impression: Normal chest. Reviewed, dictated and finalized at location . Impression: Normal chest.
--- OUTSIDE RECORDS SUMMARY | 2024-09-22 22:16 | XMS_ITS | Referral Summary ---
Author Organization [facility] Address [address] [place] [address] Care Team Providers Care Agronomy Internship Name Role Phone Michel Neff MD Primary Care Provider [phone] Encounters Date Type Department Care Team Description 09/07/2024 10:05 AM CDT Lab [address] Morbid obesity due to excess calories (HCC) 09/07/2024 12:25 PM CDT Anesthesia Event [address] [address] Cuauhtemoc Gaona MD 09/07/2024 9:40 AM CDT Office Visit [address] [place] [phone] Raul Askew MD Morbid obesity due to excess calories (HCC) (Primary Dx) 09/07/2024 12:00 PM CDT - 09/07/2024 12:30 PM CDT Surgery [address] [address] Raul Askew MD ESOPHAGOGASTRODUODENOSCOPY BIOPSY 09/07/2024 11:00 AM CDT - 09/07/2024 1:10 PM CDT Hospital Encounter [address] [address] Raul Askew MD Heartburn Discharge Disposition: Discharge to home or self care 08/17/2024 12:00 PM CDT - 08/17/2024 12:30 PM CDT Surgery [address] [address] Raul Askew MD Not Performed 08/17/2024 12:00 PM CDT Anesthesia Event [facility] [address] [place] [address] Berhane Gautam DO Zirkelbach, Cecilia A., CRNA 08/17/2024 10:55 AM CDT - 08/17/2024 11:05 AM CDT Hospital Encounter [facility] [address] [place] [address] Raul Askew MD Discharge Disposition: Discharge to home or self care 08/05/2024 11:00 AM CDT - 08/05/2024 11:59 PM CDT Hospital Encounter [facility] Nutrition and Diabetic Education [address] [address] Sanchez, Nubia Roberts RD Discharge Disposition: Discharge to home or self care 08/05/2024 Orders Only [address] [address] Raul Askew MD Morbid obesity due to excess calories (HCC) (Primary Dx) 08/05/2024 10:35 AM CDT Office Visit [facility] [address] [place] [address] [address] [address] Kylee Monet NP Morbid obesity due to excess calories (HCC) (Primary Dx) 07/12/2024 10:52 AM CDT - 07/12/2024 11:59 PM CDT Hospital Encounter [facility] Nutrition and Diabetic Education 1 [facility] Room [address] [address] Sanchez, Nubia Roberts RD Discharge Disposition: Discharge to home or self care 07/08/2024 8:40 AM CDT Office Visit [facility] [address] [place] [address] [address] [address] Raul Askew MD Morbid obesity due to excess calories (HCC) (Primary Dx) from Last 3 Months Allergies No known active allergies Medications Invega Sustenna 117 mg/0.75 mL syringe 4 Active Ozempic 0.25 mg or 0.5 mg (2 mg/3 mL) pen injector injection 0.25 MG Subcutaneous WEEKLY 4 Active meloxicam (MOBIC) 15 mg tablet Take 1 tablet (15 mg total) by mouth daily 5 Active ketoconazole (NIZORAL) 2 % cream APPLY TOPICALLY TO THE AFFECTED AREA DAILY 5 Active Active Problems Problem Noted Date Diagnosed Date Heartburn 08/05/2024 Morbid obesity due to excess calories 09/04/2023 Assessment & Plan (09/07/2024 9:52 AM CDT): Continue to avoid eating late at night. Continue small frequent meals and exercising as tolerated. She is set to have an EGD today in preparation for surgery. We will see her back next month for her last visit. Assessment & Plan (07/08/2024 8:52 AM CDT): Continue small frequent meals. Continue exercise as tolerated. The patient will continue to work with the dietitian. She has already been seen and evaluated by psych. Continue to attend the month the support group meetings. We will see her back next month to reassess her progress. Assessment & Plan (10/09/2023 9:36 AM CDT): The patient is going to take what she is done this 1st month and start adding an exercise regimen to this. She was getting set to get a gym membership. I think this is a great plan going forward. We will see her back next month to reassess her progress. Assessment & Plan (09/04/2023 9:23 AM CDT): Given their past success the patient would be a good candidate for weight loss surgery. We have gone over options such as the bypass and sleeve gastrectomy. We have also discussed risks and benefits such as blood clots, staple line leak as well as new or worsening reflux symptoms. They are in understanding. During this time will have them seen by the dietitian and psych. As we get closer to the time of surgery we will set him up for an EGD to look for hiatal hernia, H pylori or other gastric pathology. We will see them back in 4 weeks. They are in understanding of the plan. We have gone over small frequent meals shooting for a goal calorie intake of around 1600 spread throughout 4-5 meals. We have discussed not eating late at night. We have discussed cardiovascular exercise. Greater than 15 minutes was spent in counseling the patient on diet and exercise with regards to her morbid obesity. 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 Never 09/07/2024 Q2: How many drinks containi ng alcohol do you have on a typical day when you are drinking? Patient does not drink Q3: How often do you have si x or more drinks on one occasion? Never 09/07/2024 Personal Safety Answer Date Recorded Have you ever been in or are you currently in a harmful physical or emotional relationship or is someone making you feel afraid or unsafe? 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 Gender Identity Not on file Sexual Orientation Not on file Last Filed Vital Signs Vital Sign Reading Time Taken Comments Blood Pressure 107/74 09/07/2024 1:08 PM CDT Pulse 70 09/07/2024 1:08 PM CDT Temperature 36.6 C (97.9 F) 09/07/2024 1:08 PM CDT Respiratory Rate 16 09/07/2024 1:08 PM CDT Oxygen Saturation 100% 09/07/2024 1:08 PM CDT Inhaled Oxygen Concentration - - Weight 98 kg (216 lb) 09/07/2024 11:21 AM CDT Height 152.4 cm (5') 09/07/2024 3:20 PM CDT Body Mass Index 42.18 09/07/2024 11:21 AM CDT Plan of Treatment Not on file Procedures Procedure Name Priority Date/Time Associated Diagnosis Comments ESOPHAGOGASTRODUODENOSCOPY BIOPSY 09/07/2024 12:18 PM CDT Heartburn EGD 09/07/2024 11:57 AM CDT VITAMIN B12 Routine 09/07/2024 10:11 AM CDT Morbid obesity due to excess calories (HCC) VITAMIN D 25 HYDROXY Routine 09/07/2024 10:11 AM CDT Morbid obesity due to excess calories (HCC) LIPID PANEL Routine 09/07/2024 10:11 AM CDT Morbid obesity due to excess calories (HCC) HEMOGLOBIN A1C Routine 09/07/2024 10:11 AM CDT Morbid obesity due to excess calories (HCC) GLUCOSE, FASTING Routine 09/07/2024 10:11 AM CDT Morbid obesity due to excess calories (HCC) IRON PROFILE W/ IBC Routine 09/07/2024 10:11 AM CDT Morbid obesity due to excess calories (HCC) FERRITIN Routine 09/07/2024 10:11 AM CDT Morbid obesity due to excess calories (HCC) FOLATE Routine 09/07/2024 10:11 AM CDT Morbid obesity due to excess calories (HCC) THYROID FUNCTION CASCADE Routine 025 10:11 AM CDT Morbid obesity due to excess calories (HCC) VITAMIN A Routine 09/07/2024 10:11 AM CDT Morbid obesity due to excess calories (HCC) VITAMIN B1 Routine 09/07/2024 10:11 AM CDT Morbid obesity due to excess calories (HCC) SURGICAL PATHOLOGY STAT 09/07/2024 10:01 AM CDT Heartburn from Last 3 Months Results * EGD (09/07/2024 11:57 AM CDT) Anatomical Region Laterality Modality Other Narrative Procedure Note Raul Askew MD - 09/07/2024 11:57 AM CDT [facility] Patient Name: Manisha Lundy Procedure Date: 09/07/2024 11:57 AM Date of : 1990 Admit Type: Outpatient Age: 34 Gender: Female Attending MD: Raul Askew M.D. Room: [facility] 2 Note Status: Finalized Patient Profile: Refer to note in patient chart for documentation of history and physical. Procedure: Upper GI endoscopy Indications: Heartburn Referring MD: Michel Neff M.D. Providers: Raul Askew M.D. Impression: - Z-line irregular, 32 cm from the incisors.Biopsied. - Erythematous mucosa in the prepyloric region ofthe stomach. Biopsied. - Normal examined duodenum. Recommendation: - Discharge patient to home. - Resume previous diet. - Continue present medications. - Await pathology results. Medicines: Propofol per Anesthesia Complications: No immediate complications. Estimated Blood Loss: Estimated blood loss was minimal. Procedure: Pre-Anesthesia Assessment: - Prior to the procedure, a History and Physicalwas performed, and patient medications and allergieswere reviewed. The patient's tolerance of previous anesthesia was also reviewed. The risks andbenefits of the procedure and the sedation options and risks were discussed with the patient. All questions were answered, and informed consent was obtained. Prior Anticoagulants: The patient has taken noanticoagulant or antiplatelet agents. ASA Grade Assessment: II -A patient with mild systemic disease. After reviewing the risks and benefits, the patient was deemed in satisfactory condition to undergo the procedure. The benefits, risks, and alternatives to theprocedure and sedation were discussed and informed consentwas obtained. The scope was passed under direct vision. The Endoscope [id number]-[id number] was introduced through the mouth, and advanced to the second partof duodenum. The upper GI endoscopy was accomplished without difficulty. The patient tolerated the procedure well. Findings: The Z-line was irregular and was found 32 cm from the incisors. Thiswas biopsied with a cold forceps for histology. Verification of patient identification for the specimen was done by the nurse using the patient's name and date. Estimated blood loss was minimal. Localized mildly erythematous mucosa without bleeding was found inthe prepyloric region of the stomach. This was biopsied with a coldforceps for Helicobacter pylori testing. Verification of patientidentification for the specimen was done by the nurse using the patient's name and date. Estimated blood loss was minimal. The examined duodenum was normal. Raul Askew M.D. 09/07/2024 12:42:40 PM Number of Addenda: 0 Note Initiated On: 09/07/2024 11:57 AM Procedure Code(s): --- Professional --- 24609, Esophagogastroduodenoscopy, flexible, transoral; with biopsy, single or multiple --- Technical --- 38049, Esophagogastroduodenoscopy, flexible, transoral; with biopsy, single or multiple Diagnosis Code(s): --- Professional --- K31.89, Other diseases of stomach and duodenum K22.89, Other specified disease of esophagus --- Technical --- K31.89, Other diseases of stomach and duodenum K22.89, Other specified disease of esophagus CPT copyright 2020 [employer]. All rights reserved. The codes documented in this report are preliminary and upon garment patternmaker reviewmay be revised to meet current compliance requirements. Recognized by the [employer] for promoting quality in endoscopy Raul Askew MD ENDOSCOPY PROCED URES Final Result * Thyroid Function Nancy (09/07/2024 10:11 AM CDT) TSH 0.35 0.30 - 4.20 mcIUnit/mL Blood 09/07/2024 10:1 1 AM CDT 09/07/2024 1:10 PM CDT Raul Askew MD LAB BLOOD ORDERA BLES Final Result Performing Organization Address [facility] Co de Phone Number MICHELLE MCDUFFIE ([place]) 1 [facility] [place] [address] * Iron profile w/ IBC (09/07/2024 10:11 AM CDT) Iron 79 35 - 145 mcg/dL TIBC 312 250 - 400 mcg/dL [facility] ([place]) Transferrin saturation 25 20 - 50 % [facility] ([place]) Blood 09/07/2024 10:1 1 AM CDT 09/07/2024 1:10 PM CDT Raul Askew MD LAB BLOOD ORDERA BLES Final Result Performing Organization Address City/[facility] Co de Phone Number MICHELLE MCDUFFIE ([place]) 1 [facility] [place] [address] * Vitamin A (09/07/2024 10:11 AM CDT) Vitamin A 35.8 32.5 - 78.0 mcg/dL [facility] Comment: ADDITIONAL INFORMATION This test was developed and its performance characteristics determined by [facility] in a manner consistent with CLIA requirements. This test has not been cleared or approved by the U.S. Food and Drug Administration. Test Performed by: [facility] [address] Mud Mixer Helper: Bharathi Luna Ph.D.; CLIA# [id number] Blood 09/07/2024 10:1 1 AM CDT 09/07/2024 1:10 PM CDT Raul Askew MD LAB BLOOD ORDERA BLES Final Result [facility] ([place]) [address] [place] [address] [place] [place] [address] [place] ref Lab * (ABNORMAL) Vitamin D 25 hydroxy (09/07/2024 10:11 AM CDT) [facility] Vitamin D 25-OH 14(L) 30 - 80 ng/mL Blood 09/07/2024 10:1 1 AM CDT 09/07/2024 1:10 PM CDT Raul Askew MD LAB BLOOD ORDERA BLES Final Result Performing Organization Address City/[facility]/ZIP Co de Phone Number MICHELLE MCDUFFIE ([place]) 1 [facility] [place] [place] [address] * Vitamin B1 (09/07/2024 10:11 AM CDT) Pathologist [facility] Thiamine (Vit B1) 100 70 - 180 nmol/L [place] ref Lab Comment: ADDITIONAL INFORMATION This test was developed and its performance characteristics determined by [facility] in a manner consistent with CLIA requirements. This test has not been cleared or approved by the U.S. Food and Drug Administration. Test Performed by: [facility] - [address] [address] Mud Mixer Helper: Bharathi Luna Ph.D.; CLIA# [id number] Blood 09/07/2024 10:1 1 AM CDT 09/07/2024 1:00 PM CDT Raul Askew MD LAB BLOOD ORDERA BLES Final Result Performing Organization Address [facility] Co de Phone Number MICHELLE MCDUFFIE ([place]) 1 [facility] [place] [place] [address] [place] ref Lab * Hemoglobin A1c (09/07/2024 10:11 AM CDT) Hgb A1C 4.4 4.0 - 5.6 % Estimated Average Glucose 80 mg/dL [facility] ([place]) Comment: The ADA recommends reporting an estimated Average Glucose (eAG) with all Hemoglobin A1c results using the equation derived from a study of 507 normal and diabetic adults. Minority populations were underrepresented and children were not included. (Diabetes Care 31:5319-6131, 2008). The eAG is not equivalent to a fasting glucose. Blood 09/07/2024 10:1 1 AM CDT 09/07/2024 1:10 PM CDT Raul Askew MD LAB BLOOD ORDERA BLES Final Result Performing Organization Address [facility] Co de Phone Number MICHELLE MCDUFFIE ([place]) 1 [facility] [place] [place] [address] * Glucose, fasting (09/07/2024 10:11 AM CDT) Glucose, fasting 78 70 - 99 mg/dL Blood 09/07/2024 10:1 1 AM CDT 09/07/2024 1:10 PM CDT Raul Askew MD LAB BLOOD ORDERA BLES Final Result Performing Organization Address City/[facility] Co de Phone Number MICHELLE MCDUFFIE ([place]) 1 [facility] [place] [place] [address] * Folate (09/07/2024 10:11 AM CDT) Pathologist [facility] Folic acid 10.3 >=5.0 ng/mL Comment:Slightly Hemolyzed S pecimen. Results may be affected. Blood 09/07/2024 10:1 1 AM CDT 09/07/2024 1:10 PM CDT Raul Askew MD LAB BLOOD ORDERA BLES Final Result MICHELLE MCDUFFIE ([place]) 1 [facility] [place] [address] * Ferritin (09/07/2024 10:11 AM CDT) [facility] Ferritin 90 15 - 150 ng/mL Blood 09/07/2024 10:1 1 AM CDT 09/07/2024 1:10 PM CDT Raul Askew MD LAB BLOOD ORDERA BLES Final Result Performing Organization Address City/[facility]/ZIP Co de Phone Number MICHELLE MCDUFFIE ([place]) 1 [facility] [place] [address] * Vitamin B12 (09/07/2024 10:11 AM CDT) [facility] Vitamin B12 534 230 - 1,250 pg/mL Blood 09/07/2024 10:1 1 AM CDT 09/07/2024 1:10 PM CDT Raul Askew MD LAB BLOOD ORDERA BLES Final Result Performing Organization Address City/[facility]/ZIP Co de Phone Number MICHELLE MCDUFFIE ([place]) 1 [facility] [place] [address] * Lipid panel (09/07/2024 10:11 AM CDT) [facility] Cholesterol 137 30 - 199 mg/dL Comment: Interpretive Data Ages < or = 19 years Acceptable: <170 mg/dL Borderline high: 170-199 mg/dL High: >or= 200 mg/dL Ages > or = 20 years Desirable: <200 mg/dL Borderline high: 200-239 mg/dL High: >or= 240 mg/dL Literature References: 1. Expert Panel on Integrated Guidelines for Cardiovascular Health and Risk Reduction in Children and Adolescents. Pediatrics 2011;128:S213 2. NCEP Expert Panel. Circulation 2004;110:227 Current Interpretive Data was last revised on 2017. Triglycerides 73 <=149 mg/dL MICHELLE MCDUFFIE ([place]) Comment: Interpretive Data Ages < or = 9 years Acceptable: <75 mg/dL Borderline high: 75-99 mg/dL High: >or= 100 mg/dL Ages 10 to 20 years Acceptable: <90 mg/dL Borderline high: 90-129 mg/dL High: >or= 130 mg/dL Ages > or = 20 years Desirable: <150 mg/dL Borderline high: 150-199 mg/dL High: 200-499 mg/dL Very high: >or= 499 mg/dL Literature References: 1. Expert Panel on Integrated Guidelines for Cardiovascular Health and Risk Reduction in Children and Adolescents. Pediatrics 2011;128:S213 2. NCEP Expert Panel. Circulation 2004;110:227 Current Interpretive Data was last revised on 2017. HDL 43 >=40 mg/dL MICHELLE Chisholm ([place]) Comment: Interpretive Data Ages < or = 19 years Acceptable: >45 mg/dL Borderline low: 40-45 mg/dL Low: <40 mg/dL Ages > or = 20 years Desirable: >or= 60 mg/dL Low: <40 mg/dL Literature References: 1. Expert Panel on Integrated Guidelines for Cardiovascular Health and Risk Reduction in Children and Adolescents. Pediatrics 2011;128:S213 2. NCEP Expert Panel. Circulation 2004;110:227 Current Interpretive Data was last revised on 2017. LDL, calculated 79 <=129 mg/dL MICHELLE MCDUFFIE ([place]) Comment: Interpretive Data Ages < or = 19 years Acceptable: <110 mg/dL Borderline high: 110-129 mg/dL High: >or= 130 mg/dL Ages > or = 20 years Optimal: <100 mg/dL Near optimal: 100-129 mg/dL Borderline high: 130-159 mg/dL High: >160 mg/dL Calculated using the Carmine LDL-C estimating equation. This equation was implemented on 2023. Prior to this date LDL-C was estimated using the Friedewald equation. Literature References: 1. Expert Panel on Integrated Guidelines for Cardiovascular Health and Risk Reduction in Children and Adolescents. Pediatrics 2011;128:S213 2. NCEP Expert Panel. Circulation 2004;110:227 3. Carmine M et al. FOX Cardiol. 2019August 12;5(5):540-548. doi: 10.1001/jamacardio.2020.0013 Current Interpretive Data was last revised on 2023. Non-HDL Cholesterol 94 mg/dL MICHELLE CHAN) Comment: Interpretive Data Ages < or = 19 years Acceptable: <120 mg/dL Borderline high: 120-144 mg/dL High: >145 mg/dL Ages > or = 20 years When triglycerides are >200 mg/dL, Non-HDL cholesterol is a secondary target of therapy with treatment goals that are 30 mg/dL greater than the LDL cholesterol target. Literature References: 1. Expert Panel on Integrated Guidelines for Cardiovascular Health and Risk Reduction in Children and Adolescents. Pediatrics 2011;128:S213 2. NCEP Expert Panel. Circulation 2004;110:227 Current Interpretive Data was last revised on 2017. Chol/HDL ratio 3 JAMEY MCDUFFIE ([place]) Blood 09/07/2024 10:1 1 AM CDT 09/07/2024 1:10 PM CDT Raul Askew MD LAB BLOOD ORDERA BLES Final Result MICHELLE MCDUFFIE ([place]) 1 [facility] Department [place] [address] * Surgical pathology (09/07/2024 10:01 AM CDT) Tissue (Gastric/Stomach biopsy) 09/07/2024 12:35 PM CDT Tissue specimen (specimen) (EG Junction, Biopsy) 09/07/2024 12:36 PM CDT Narrative PATHOLOGY RETA ([place]) - 09/10/2024 10:20 AM CDT EPIC results best viewed via link to PDF [facility] Department of Pathology [address] [place] [id number] Note to Patients: This report may contain a detailed description of human tissue sent by a health care provider to the laboratory for pathologic evaluation. The content of this report is essential for diagnosis and may provide important critical findings. This information may be unfamiliar to patients to review without a medical professional present. It is advised that the patient review this report in the presence of a health care provider who can answer questions and explain the details. Final Report Patient Name: MANISHA LUNDY Address: [address] [place] [address] Gender: F : 1990 (Age: 34) Service: Surgery Location: [facility] Hospital #: [id number] Patient Type: [facility] Taken: 09/07/2024 Received: 09/08/2024 Accessioned: 09/08/2024 Reported: 09/10/2024 Physician(s):Raul Askew MD Diagnosis: Gastric, for H. pylori, biopsies - Inactive chronic gastritis - H. pylori negative - See description GE junction, biopsies - Reflux - Focal debris and mixed inflammatory cells - See description Saroj Salazar MD PhD Report Electronically Reviewed and Signed Out By Saroj Salazar MD PhD 09/10/2024 10:20:40 Specimen(s) Received: A: Gastric biopsies for H. pylori B: GE Junction Biopsies Microscopic Description: Sections from the gastric biopsy specimen show gastric mucosa with a mild increase in lamina propria chronic inflammatory cells. Given the presence of these inflammatory cells and the clinical request, an immunohistochemical stain for H. pylori has been performed but this shows no definitive curvilinear bacilli. Sections from the GE junction biopsy show fragments of squamous mucosa with reflux associated changes including basilar hyperplasia and keratinocyte ballooned cell change. Focal semiattached fragments of debris and mixed inflammatory cells including acute inflammatory cells are seen. Clinical correlation and continued follow-up are recommended. Clinical History: Heartburn. EGD. Gross Description: The specimen is submitted in two formalin containers labeled MANISHA JESSY. A. The first container is labeled gastric biopsies for H pylori. It is one painting tissue fragment measuring 2 mm. All in A. B. The second container is labeled GE junction. It is one painting 2 mm fragment. All in B. T.A. Maddy Underwood., Roshan./Chani Jules M.D. REPORT IMAGES AND SCANNED DOCUMENTS, IF INCLUDED, ONLY VIEWABLE IN PDF VERSION OF REPORT The performance characteristics of some immunohistochemical stains, fluorescence in-situ hybridization tests and immunophenotyping by flow cytometry cited in this report (if any) were determined by the Surgical Pathology Department at [facility] as part of an ongoing quality system manager program and in compliance with federally mandated regulations drawn from the Clinical Laboratory Improvement Act of 1988 (CLIA '88). Some of these tests rely on the use of analyte specific reagents and are subject to specific labeling requirements by the US Food and Drug Administration. Such diagnostic tests may only be performed in a facility that is certified by the Department of Health and Human Services as a high complexity laboratory under CLIA '88. The FDA has determined that such clearance or approval is not necessary. This test is used for clinical purposes. It should not be regarded as investigational or for research. Nevertheless, federal rules concerning the medical use of analyte specific reagents require that the following disclaimer be attached to the report: This test was developed and its performance characteristics determined by the Surgical Pathology Department [facility]. It has not been cleared or approved by the U. S. Food and Drug Administration. Note for decalcified specimens: This assay has not been validated on decalcified tissues. Results should be interpreted with caution given the possibility of false negativity on decalcified specimens Raul Askew MD LAB PATHOLOGY OR DERABLES Final Result Performing Organization Address City/State/[facility] Co de Phone Number PATHOLOGY [facility] [address] [place] [address] from Last 3 Months Insurance [employer] Advance Directives For more information, please contact: [phone] * Full Code (Latest Code Status on File) Date Activated Date Inactivated Comments 09/07/2024 11:15 AM 09/07/2024 5:15 PM * Full Code Date Activated Date Inactivated Comments 09/07/2024 11:15 AM 09/07/2024 11:15 AM Care Teams Agronomy Internship Relationship Specialty Start Date End Date Michel Neff MD [address] [place] [address] PCP - General Internal Medicine 10/09/23
--- OUTSIDE RECORDS SUMMARY | 2024-09-22 22:16 | XMS_ITS | Patient Health Record ---
Author Organization [facility] Address [address] [place] [address] Care Team Providers Care Contract Engineer Name Role Phone Michel Neff Primary Care Provider Freddie Gomes Unavailable [phone] [facility] Unav ailable Unavailable Alessandra Maharaj Unavailable [phone] Jacy Wen Unavailable [phone] Allergies No Known Allergies Results Component Value Reference Range Notes Test, Urine Reviewed date:03/19/2024 03:41:54 PM Interpretation: Performing Lab: Notes/Report: Test, Urine neg Negative - Negative Reason For Referral Reason prefers [facility] Diagnosis 1 Morbid (severe) obes ity due to excess calories (E66.01) Referral Organization [facility] Referring Provider First Name Michel Referring Provider Last Name Aishwarya Referring Provider Speciality Internal edicine Referred Provider Specialty Bariatric [facility] General Notes Latesha Vega 02/13 02:28:31 PM > Referral sent to Dr. Askew-Bariatric Surgeon in [place]. Letter sent to patient. Clinical Notes Bariatric Surgeon, Coral Askew, [address], [address], [place] [facility] [place], [address], ph: [phone], fax: [phone] Referral Priority Routine Reason INGROWN TOENAIL, PRE FERS CAHOKIA Diagnosis 1 Ingrown right greate r toenail (L60.0) Referral Organization [facility] Referring Provider First Name Michel Referring Provider Last Name Aishwarya Referring Provider Speciality Internal M edicine Referred Provider Specialty Podiatry General Notes Monet Beckwith 0 07/13/2024 02:21:06 PM > referral sent to Podiatry. Letter sent Clinical Notes [facility] - Podiatry, Iglesia Tadeo DPM, [address] [place] [address], , Referral Priority Urgent Medications Medication SIG (Take, Route, Frequency, Duration) Notes Start Date End Date Status hydrOXYzine HCl 25 MG 1 tablet as needed Orally EVERY 6 HOURS ANXIETY 04/16/2023 Not-Taking Baclofen 10 MG 1 tablet at bedtime Orally daily for 30 days As needed back pain 04/26/2024 Active Estradiol 0.1 MG/GM 0.5 applicator Vaginal three times weekly for 30 days for vaginal dryness 03/19/2024 Active hydrOXYzine HCl 25 MG 1 tablet as needed Orally twice a day for 30 days 10/24/2023 Active Acetaminophen Extra Strength 500 MG 2 tablets Orally every 6 hrs for 15 days As needed pain (maximum of 6 tablets in 24 hours) Active Ozempic (2 MG/DOSE) 8 MG/3ML 2 mg Subcutaneous weekly for 28 days 08/05/2024 Active Meloxicam 15 MG 1 tablet Orally Once a day for 30 days Active Lidocaine 5 % 1 patch remove after 12 hours Externally Once a day for 30 days As needed upper back pain 04/26/2024 Active Topiramate 100 MG 1 tablet Orally Once a day for 30 days BEGIN AFTER COMPLETING 25 MG TABS 06/11/2024 Active Vitamin D (Ergocalciferol) 1.25 MG (47650 UT) TAKE 1 CAPSULE BY MOUTH EVERY WEEK for 28 Active Invega Sustenna 117 MG/0.75ML as directed Intramuscular every 4 weeks for 28 days Active Omeprazole 40 MG 1 capsule 1/2 to 1 hour before morning meal Orally Once a day 03/19/2024 Active PARoxetine HCl 40 MG 1.5 tablet in the morning Orally Once a day for 30 days Active Ketoconazole 2 % 1 application TO LIZY H ON TRUNK Externally at night Active Minoxidil 2 % 1 mL Externally Twice a day for 30 days TO SCALP 09/15/2024 Active traZODone HCl 50 MG 1 tablet at bedtime as needed Orally at night for 30 days Active Prochlorperazine Maleate 10 MG 1 tablet as needed Orally EVERY 6 HOURS for 5 days 03/25/2024 Active Social History Tobacco Use: Social History Observation Description Date Details (start date - stop date) Never Smoker NA - NA Sex Assigned At : Social History Observation Description Sex Assigned At Female Alcohol Screen (Audit-C) Question Answer Notes Did you have a drink containing alcohol in the p ast year? No Tobacco Control (Standard) Question Answer Notes Tobacco use: Nonsmoker Problems Problem Type SNOMED Code ICD Code Onset Dates Problem Status W/U Status Risk Notes Problem 62127316835240 Morbid (severe) obesity due to excess calories (E66.01) Active confirmed Problem Secondary amenorrhea (630759069) Secondary amenorrhea (N91.1) Active confirmed Problem Vitamin D deficiency (34562675) Vitamin D insufficiency (E55.9) Active confirmed Problem Anxiety (39171741) Anxiety (F41.9) Active confi rmed Problem Schizophrenia (62815302) Schizophrenia (F20.9) Active confirmed Problem Menstrual disorder (426430902) Irregular menses (N92.6) Active confirmed Problem Overweight (046404148) Over weight (E66.3) Active confirmed Problem 98910439 Depression, unspecified depression type (F32.9) 03/24/20 20 Active confirmed Problem 413059093 Tension headache (G44.209) Active confirmed Problem 925258175032751 Obesity (BMI 30.0-34.9) (E66.9) Active confirmed Problem 63454978 Schizophrenia, unspecified type (F20.9) Active confirmed Problem 06475858 Migraine without status migrainosus, not intractable, unspecified migraine type (G43.909) Active confirmed Problem Tobacco use (973946167) Tobacco use disorder (F17.200) Active confirmed Problem Pain in female genitalia on intercourse (22390603) Dyspareunia in female (N94.10) Active confirmed Problem Obesity (724568051) Obesity, unspecified classification, unspecified obesity type, unspecified whether serious comorbidity present (E66.9) Active confirmed Problem 0480477002609308 Patellofemoral syndrome, left (M22.2X2) Active confirmed Problem Constipation by delayed colonic transit (32790171) Constipation by delayed colonic transit (K59.01) Active confirmed Problem 104776779 Body mass index [BMI] 40.0-44.9, adult (Z68.41) Active confirmed Vital Signs Heart Rate 90 /min 09/15/2024 Temperature 97.8 degrees Fahrenheit 08/17/2024 Shou lder pain Respiratory Rate 16 /min 09/14/2024 Blood pressure diastolic 80 mm Hg 09/15/2024 Oximetry 98 % 09/15/2024 Height 61 in 09/15/2024 Blood pressure systolic 126 mm Hg 09/15/2024 Weight 218.4 lbs 09/15/2024 BMI 41.26 kg/m2 09/15/2024 Encounters Encounter Location Date Provider Diagnosis [address] [address] 10/21/2023 Michel Neff Patellofemoral arthralgia of right knee M25.561 ; Secondary amenorrhea N91.1 ; Migraine without status migrainosus, not intractable, unspecified migraine type G43.909 ; Morbid (severe) obesity due to excess calories E66.01 ; Nutritional counseling Z71.3 and Schizophrenia F20.[address] [address] 12/09/2023 Arif Habib Schizophrenia F20.[address] [address] 12/22/2023 Michel Neff Morbid (severe) obesity due to excess calories E66.01 ; Migraine without status migrainosus, not intractable, unspecified migraine type G43.909 ; Patellofemoral arthralgia of right knee M25.561 and Tinea corporis B35.[address] [address] 02/10/2024 Michel Neff Patellofemoral arthralgia of right knee M25.561 ; Tension headache G44.209 ; Tinea corporis B35.4 and Morbid (severe) obesity due to excess calories E66.[address] [address] 02/17/2024 Arif Habib Schizophrenia F20.9 and Nutritional counseling Z71.[address] [address] 03/08/2024 Michel Neff Nutritional counseling Z71.3 and Morbid (severe) obesity due to excess calories E66.[address] [place] [address] 03/16/2024 Arif Habib Nutritional counseling Z71.3 and Schizophrenia F20.9 [place] [address] [place] [address] 03/19/2024 Michel Neff Epigastric pain R10.13 ; Dyspareunia in female N94.10 ; Irregular menses N92.6 ; Tension headache G44.209 ; Nutritional counseling Z71.3 and Morbid (severe) obesity due to excess calories E66.[address] [address] 03/25/2024 Michel Neff Tension headache G44.209 and Epigastric pain R10.[address] [address] 04/20/2024 Arif Habib Nutritional counseling Z71.3 and Schizophrenia F20.[address] [address] 04/26/2024 Michel Neff Dorsalgia of multipl e sites in spine M54.9 and Nutritional counseling Z71.3 [address] [place] [place] [address] 06/11/2024 Michel Neff Migraine without status migrainosus, not intractable, unspecified migraine type G43.909 ; Obesity, unspecified classification, unspecified obesity type, unspecified whether serious comorbidity present E66.9 and Dyspareunia in female N94.[address] [address] 06/15/2024 Arif Habib Nutritional counseling Z71.3 and Schizophrenia F20.[address] [place] [address] 07/08/2024 Michel Neff Ingrown right greate r toenail L60.0 ; Cellulitis L03.90 ; Morbid (severe) obesity due to excess calories E66.01 and Nutritional counseling Z71.[address] [address] 07/19/2024 Michel Neff Over weight E66.3 ; Patellofemoral syndrome, left M22.2X2 and Schizophrenia F20.[address] [address] 08/16/2024 Arif Habib [address] [address] 08/17/2024 Arif Habib Schizophrenia F20.[address] [address] 09/14/2024 Arif Habib Nutritional counseling Z71.3 and Schizophrenia F20.[address] [address] 09/15/2024 Michel Linkner Over weight E66.3 ; Hair loss L65.9 ; Dorsalgia of multiple sites in spine M54.9 ; Migraine without status migrainosus, not intractable, unspecified migraine type G43.909 and Patellofemoral syndrome, left M22.2X2 [address] [address] 10/17/2023 Jacy Wen [address] [address] 10/23/2023 Alessandra Maharaj [address] [address] 11/07/2023 Arif Habib [facility] [address], [place] [address] 12/31/2023 Michel Neff [facility] [address], [place] [address] 01/22/2024 Jacy Wen [facility] [address] [address] 04/20/2024 Freddie Mirandanancy [address] [address] 07/08/2024 Michelsherri Linkner [address] [address] 08/05/2024 Michel Neff Morbid (severe) obesity due to excess calories E66.01 Assessments Encounter Date Diagnosis (ICD Code) Assessment Notes Treatment Notes Treatment Clinical Notes Section Notes 10/21/2023 Patellofemoral arthralgia of right knee (ICD-10 - M25.561) DISCUSSED AVOIDANCE OF KNEELING, SQUATTING, STAIR CLIMBING. DISCUSSED CONTINUED WT LOSS. DISCUSSED SITTING WITH KNEE OUT OR ELEVATED INSTEAD OF BENT. 02/10/2024 Patellofemoral arthralgia of right knee (ICD-10 - M25.561) 06/11/2024 Migraine without status migrainosus, not intractable, unspecified migraine type (ICD-10 - G43.909) 06/11/2024 Obesity, unspecified classification, unspecified obesity type, unspecified whether serious comorbidity present (ICD-10 - E66.9) 06/15/2024 Nutritional counseling (ICD-10 - Z71.3) 07/08/2024 Cellulitis (ICD-10 - L03.90) 03/19/2024 Epigastric pain (ICD-10 - R10.13) DDX: GASTRITIS (POSSIBLY DUE TO IBUPROFEN USE), PUD, CHOLECYSTITIS (POSSIBLY RELATED TO WT LOSS), PANCREATITIS (POSSIBLY RELATED TO OZEMPIC) STOP IBUPROFEN, TRIAL OF OMEPRAZOLE. 03/19/2024 Dyspareunia in female (ICD-10 - N94.10) POSSIBLE EARLY PERIMENOPAUSE WITH IRREGULAR MENSES. SHE WILL ASK MOTHER ABOUT WHETHER SHE HAD EARLY MENOPAUSE. 03/25/2024 Epigastric pain (ICD-10 - R10.13) 03/25/2024 Tension headache (ICD-10 - G44.209) 04/20/2024 Nutritional counseling (ICD-10 - Z71.3) 04/26/2024 Dorsalgia of multiple sites in spine (ICD-10 - M54.9) DISCUSSED INTERMITTENT HEAT AND STRETCHES 07/19/2024 Over weight (ICD-10 - E66.3) 07/19/2024 Patellofemoral syndrome, left (ICD-10 - M22.2X2) ICE OR HEAT, AVOID PRESSURE TO PATELLA, STOP IBUPROFEN AND TRY MELOXICAM, DO WALKING AND STRAIGHT LEG RAISES TO STRENGHTEN QUADS. 08/05/2024 Morbid (severe) obesity due to excess calories (ICD-10 - E66.01) 08/17/2024 Schizophrenia (ICD-10 - F20.9) 07/08/2024 Ingrown right greater toenail (ICD-10 - L60.0) WARM SOAKS QID X 15 MIN 09/14/2024 Nutritional counseling (ICD-10 - Z71.3) 09/15/2024 Over weight (ICD-10 - E66.3) MEDICALLY STABLE FOR PLANNED BARIATRIC SURGERY 09/15/2024 Hair loss (ICD-10 - L65.9) 02/10/2024 Tension headache (ICD-10 - G44.209) 02/17/2024 Schizophrenia (ICD-10 - F20.9) Continue current treatment. Side effects discussed. Supportive treatment provided 12/09/2023 Schizophrenia (ICD-10 - F20.9) 03/08/2024 Morbid (severe) obesity due to excess calories (ICD-10 - E66.01) 03/08/2024 Nutritional counseling (ICD-10 - Z71.3) 03/16/2024 Nutritional counseling (ICD-10 - Z71.3) 10/21/2023 Secondary amenorrhea (ICD-10 - N91.1) DISCUSSED TRIAL OF PROGESTERONE CHALLENGE AND CENTRAL SUPPLY TECHNICIAN SUPERVISOR REFERRAL IF UNSUCCESSFUL. 12/22/2023 Morbid (severe) obesity due to excess calories (ICD-10 - E66.01) 12/22/2023 Migraine without status migrainosus, not intractable, unspecified migraine type (ICD-10 - G43.909) 12/22/2023 Patellofemoral arthralgia of right knee (ICD-10 - M25.561) 02/10/2024 Tinea corporis (ICD-10 - B35.4) 10/21/2023 Migraine without status migrainosus, not intractable, unspecified migraine type (ICD-10 - G43.909) POSSIBLY RELATED TO HORMONAL CHANGES ASSOCIATED WITH WT LOSS. 03/16/2024 Schizophrenia (ICD-10 - F20.9) Continue current treatment. Side effects discussed. Supportive treatment provided 02/17/2024 Nutritional counseling (ICD-10 - Z71.3) 09/15/2024 Dorsalgia of multiple sites in spine (ICD-10 - M54.9) 07/19/2024 Schizophrenia (ICD-10 - F20.9) 09/14/2024 Schizophrenia (ICD-10 - F20.9) Continue current treatment. Side effects discussed. Supportive treatment provided. Increase Paxil 60 mg daily due to depression. 04/26/2024 Nutritional counseling (ICD-10 - Z71.3) 04/20/2024 Schizophrenia (ICD-10 - F20.9) Continue current treatment. Side effects discussed. Supportive treatment provided 03/19/2024 Irregular menses (ICD-10 - N92.6) 07/08/2024 Morbid (severe) obesity due to excess calories (ICD-10 - E66.01) 06/15/2024 Schizophrenia (ICD-10 - F20.9) Continue current treatment. Side effects discussed. Supportive treatment provided 06/11/2024 Dyspareunia in female (ICD-10 - N94.10) 07/08/2024 Nutritional counseling (ICD-10 - Z71.3) 03/19/2024 Tension headache (ICD-10 - G44.209) 09/15/2024 Migraine without status migrainosus, not intractable, unspecified migraine type (ICD-10 - G43.909) 12/22/2023 Tinea corporis (ICD-10 - B35.4) 02/10/2024 Morbid (severe) obesity due to excess calories (ICD-10 - E66.01) 10/21/2023 Morbid (severe) obesity due to excess calories (ICD-10 - E66.01) 10/21/2023 Nutritional counseling (ICD-10 - Z71.3) 09/15/2024 Patellofemoral syndrome, left (ICD-10 - M22.2X2) 03/19/2024 Nutritional counseling (ICD-10 - Z71.3) 10/21/2023 Schizophrenia (ICD-10 - F20.9) 03/19/2024 Morbid (severe) obesity due to excess calories (ICD-10 - E66.01) 12/09/2023 Other side effects discussed. Increase Paxil 40 mg daily for anxiety & depression. Supportive treatment provided 07/08/2024 Other Learning About the Safe Use of Antibiotics material was discussed. Pt was educated on use of antibiotic medication including dosing, side effects, adverse effects and anticipated response. Pt was also educated on importance of completing full course of treatment as ordered. Patient voiced understanding of all. Plan Of Treatment Future Test Test Name Order Date Ultrasound : Right Upper Quadrant 2023 Next Appt Details Provider Name:Michel Neff , 10/01/2024 01:00:00 PM, [address], [place], [address], Provider Name:Freddie Mireya, 04:00:00 PM, [address] [place], [address], Insurance Providers Payer Name Payer Address Payer Phone Subscriber Number Group Number Insured Name Patient Relationship to Insured Coverage Start Date Coverage End Date [facility] Att Claims Department [address] [place] [address] [phone] [id number] Manisha Lundy Self - patient is the insured 5 5 [facility] [address] [place] [address] [id number] Manisha Lundy Self - patient is the insured 4 5 MEDICAID [address] [place] [address] [id number] Manisha Lundy Self - patient is the insured 4 5 [facility] [address] [place] [address] [id number] Manisha Lundy Self - patient is the insured 5 [facility] [address] [place] [address] [phone] [id number] Manisha Lundy Self - patient is the insured 2 4 [facility] Attn Claims Department [address] [place] [address] [id number] Manisha Lundy Self - patient is the insured 5 Medications Administered Medication Instructions Date of Administration Dosage Notes Invega Sustenna 05/23/2020 156 mg Manufact by [employer]ic. Pt brett wel. Invega Sustenna 06/20/2020 156 mg staffing analyst-Cor[place] Pt tolerated injection well. Pt voiced no questions or concerns Invega Sustenna 07/20/2020 156 mg Pt brett we ll. Invega Sustenna 09/01/2020 156 mg Pt brett we ll. Invega Sustenna 09/26/2020 156 mg Pt brett we ll. Invega Sustenna 10/25/2020 156 mg Patient t olerated well. Invega Sustenna 12/05/2020 156 mg Pt brett we ll. Invega Sustenna 01/11/2021 156 mg Pt brett we ll. Invega Sustenna 02/06/2021 156 mg Patient t olerated well. Invega Sustenna 04/03/2021 156 mg patient t olerated well, denies any questions or concerns at this time Invega Sustenna 05/25/2021 156 mg Pt brett we ll. Invega Sustenna 08/07/2021 156 mg Pt brett we ll. Invega Sustenna 09/06/2021 156 mg Pt brett we ll. Invega Sustenna 10/09/2021 156 mg Pt brett we ll. Invega Sustenna 11/08/2021 156 mg Pt brett we ll. Invega Sustenna 05/10/2022 156 mg Patient t olerated well. Invega Sustenna 08/23/2022 156 mg Patient t olerated well Invega Sustenna 10/04/2022 156 mg Renay Huynh 10/04/2022 12:00:49 PM > Patient tolerated injection to the Right gluteus well, no distress was observed. Invega Sustenna 12/31/2022 156 mg Pt brett we ll. Invega Sustenna 01/29/2023 156 mg Pt brett we ll. Invega Sustenna 03/11/2023 156 mg Pt brett we ll. Manufact by [employer]ic Invega Sustenna 04/08/2023 156 mg Pt brett we ll. Manufact by [employer]. Invega Sustenna 05/07/2023 156 mg Pt brett we ll. Invega Sustenna 07/01/2023 156 mg Manufact by tic Pt brett well. Invega Sustenna 07/30/2023 117 mg Pt brett we ll. Manufact by tic [facility] Sustenna 08/26/2023 117 mg Manufact by [employer]ic Pt brett well. Invega Sustenna 10/21/2023 117 mg Manufact by [employer]ic Pt brett well. Invega Sustenna 12/09/2023 117 mg Pt brett we ll. Manufact by tic [facility] Sustenna 02/17/2024 117 mg Manufact by [employer]ic Pt brett well. Invega Sustenna 03/16/2024 117 mg Pt brett we ll. Invega Sustenna 04/20/2024 117 mg Pt brett we ll. Invega Sustenna 06/15/2024 117 mg Manufact by [employer]ic Pt brett well. Invega Sustenna 07/19/2024 117 mg Pt brett we ll. Invega Sustenna 08/17/2024 117 mg Pt brett we ll. Invega Sustenna 09/14/2024 117 mg Pt brett we ll. Manufact by [employer] Medical (General) History Surgical History Surgery Date(Month/Year) 2019 tubal ligation 2019 Hospitalization History Reason Date(Month/Year) Urgent care for toothache Nov 2023 2019
--- OUTSIDE RECORDS SUMMARY | 2024-09-22 22:16 | XMS_ITS | Clinical Summary ---
Author Organization [facility] Address [address] [place] [address] Care Team Providers Care Hog Dropper Name Role Phone Michel Neff MD Primary Care Provider [phone] Allergies No known active allergies Medications Invega [...] obesity. 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 Biliary calculus 01/19/2016 Encounters Date Type Department Care Team Description 09/07/2024 12:25 PM CDT Anesthesia Event [address] [address] Cuauhtemoc Gaona MD 09/07/2024 12:00 PM CDT - 09/07/2024 12:30 PM CDT Surgery [address] [address] Raul Askew MD ESOPHAGOGASTRODUODENOSCOPY BIOPSY 09/07/2024 11:00 AM CDT - 09/07/2024 1:10 PM CDT Hospital Encounter [address] [address] Raul Askew MD Heartburn Discharge Disposition: Discharge to home or self care 09/07/2024 10:05 AM CDT Lab [address] Morbid obesity due to excess calories (HCC) 09/07/2024 9:40 AM CDT Office Visit [address] [place] [address] Raul Askew MD Morbid obesity due to excess calories (HCC) (Primary Dx) 08/17/2024 12:00 PM CDT - 08/17/2024 12:30 PM CDT Surgery [address] [address] Raul Askew MD Not Performed 08/17/2024 12:00 PM CDT Anesthesia Event [address] [address] Berhane Gautam DO Zirkelbach, Cecilia A., CRNA 08/17/2024 10:55 AM CDT - 08/17/2024 11:05 AM CDT Hospital Encounter [address] [address] Raul Askew MD Discharge Disposition: Discharge to home or self care 08/05/2024 11:00 AM CDT - 08/05/2024 11:59 PM CDT Hospital Encounter [facility] Nutrition and Diabetic Education [address] [place] [id number] Sanchez, Nubia Roberts RD Discharge Disposition: Discharge to home or self care 08/05/2024 10:35 AM CDT Office Visit [address] [place] [address] Kylee Monet NP Morbid obesity due to excess calories (HCC) (Primary Dx) 08/05/2024 Orders Only [address] [address] Raul Askew MD Morbid obesity due to excess calories (HCC) (Primary Dx) 07/12/2024 10:52 AM CDT - 07/12/2024 11:59 PM CDT Hospital Encounter [facility] Nutrition and Diabetic Education [address] [place] [address] Sanchez, Nubia Roberts RD Discharge Disposition: Discharge to home or self care 07/08/2024 8:40 AM CDT Office Visit [address] [place] [address] Raul Askew MD Morbid obesity due to excess calories (HCC) (Primary Dx) from Last 3 Months Surgical History Surgery Date Site/Laterality Comments SECTION TUBAL LIGATION Medical History Medical History Date Comments Depression Family History Relation Name Status Comments Father Alive Mother Social History Tobacco Use Types Packs/Day Years [...] on file 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 Gender Identity Not on file Sexual Orientation Not on file Obstetrics History Last Filed Vital Signs Vital Sign Reading [...] 09/07/2024 11:21 AM CDT Plan of Treatment Health Maintenance Due Date Last Done Comments Cervical Cancer Screening 1990 Depression Screening 1990 Hepatitis C Screening 1990 Varicella Vaccines (1 of 2 - 13+ 2-dose series) 02/02/2001 Hepatitis B Screening 02/02/2006 Regular Well Visit/Exam 18-64 02/02/2006 Covid-19 Vaccine (3 - 2023-2 5 season) 2023 10/13/2020, 09/23/2020 Influenza Vaccine (Season Ended) 2024 DTaP/Tdap/Td Vaccine (3 - Td or Tdap) 06/11/2028 06/11/2018, 02/22/2016 HPV Vaccines Aged Out No longer eligi ble based on patient's age to complete this topic Pneumococcal vaccine <65 Aged Out No longer eligible based on patient's age to complete this topic Procedures Procedure Name Priority Date/Time Associated Diagnosis [...] Askew MD - 09/07/2024 11:57 AM CDT [place] Patient Name: Manisha Jiménez Procedure Date: 09/07/2024 11:57 AM Date of : 1990 Admit Type: Outpatient Age: 34 Gender: Female Attending MD: Raul Askew M.D. Room: [facility] ENDOSCOPY ROOM 2 Note Status: Finalized Patient [...] passed under direct vision. The Endoscope [id number] was introduced through the mouth, and advanced [...] 11:57 AM Procedure Code(s): --- Professional --- 41924, Esophagogastroduodenoscopy, flexible, transoral; with biopsy, single or multiple --- Technical --- 73124, Esophagogastroduodenoscopy, flexible, transoral; with biopsy, single or multiple Diagnosis Code(s): --- Professional --- K31.89, Other diseases of stomach and duodenum K22.89, Other specified disease of esophagus --- Technical --- K31.89, Other diseases of stomach and duodenum K22.89, Other specified disease of esophagus CPT copyright 2020 [employer]. All rights reserved. The codes documented in this report are preliminary and upon shoer reviewmay be revised to meet current compliance requirements. Recognized by the [employer] for promoting quality in endoscopy Raul Askew MD ENDOSCOPY PROCED URES Final Result * Thyroid Function [place] (09/07/2024 10:11 AM CDT) TSH 0.35 0.30 - 4.20 mcIUnit/mL Blood 09/07/2024 10:1 1 AM CDT 09/07/2024 1:10 PM CDT Raul Askew MD LAB BLOOD ORDERA BLES Final Result [facility]) [address] [facility] Department [place] [address] * Iron profile w/ IBC (09/07/2024 10:11 AM CDT) Iron 79 35 - 145 mcg/dL TIBC 312 250 - 400 mcg/dL [facility] ([place]) Transferrin saturation 25 20 - 50 % [facility]) Blood 09/07/2024 10:1 1 AM CDT 09/07/2024 1:10 PM CDT Raul Askew MD LAB BLOOD ORDERA BLES Final Result Performing Organization Address [facility] Co de Phone Number [facility] ([place]) 1 [facility] [place] [address] * Vitamin A (09/07/2024 10:11 AM CDT) Vitamin A 35.8 32.5 - 78.0 mcg/dL [facility] ref Lab Comment: ADDITIONAL INFORMATION This test was developed and its performance characteristics determined by [facility] in a manner consistent with CLIA requirements. This test has not been cleared or approved by the U.S. Food and Drug Administration. Test Performed by: [facility] [place] [address] Senior Engineering Associate: Bharathi Luna Ph.D.; CLIA# [id number] Blood 09/07/2024 10:1 1 AM CDT 09/07/2024 1:10 PM CDT Raul Askew MD LAB BLOOD ORDERA BLES Final Result Performing Organization Address [facility] Co de Phone Number [facility] ([place]) 1 [facility] [place] [address] [facility] ref Lab * (ABNORMAL) Vitamin D 25 hydroxy (09/07/2024 10:11 AM CDT) Vitamin D 25-OH 14(L) 30 - 80 ng/mL Blood 09/07/2024 10:1 1 AM CDT 09/07/2024 1:10 PM CDT Raul Askew MD LAB BLOOD ORDERA BLES Final Result [facility]) 1 [facility] [place] [address] * Vitamin B1 (09/07/2024 10:11 AM CDT) [facility] Thiamine (Vit B1) 100 70 - 180 nmol/L [facility] Lab Comment: ADDITIONAL INFORMATION This test was developed and its performance characteristics determined by [facility] in a manner consistent with CLIA requirements. This test has not been cleared or approved by the U.S. Food and Drug Administration. Test Performed by: [address] [address] Senior Engineering Associate: Bharathi Luna Ph.D.; CLIA# [id number] Blood 09/07/2024 10:1 1 AM CDT 09/07/2024 1:00 PM CDT us Raul Askew MD LAB BLOOD ORDERA BLES Final Result Performing Organization Address City/[facility]/ZIP Co de Phone Number MICHELLE CHAN) 1 [facility] [place] [address] [facility] Lab * Hemoglobin A1c (09/07/2024 10:11 AM CDT) [facility] Hgb A1C 4.4 4.0 - 5.6 % Estimated Average Glucose 80 mg/dL [facility]) Comment: The ADA recommends reporting an estimated Average Glucose (eAG) with all Hemoglobin A1c results using the equation derived from a study of 507 normal and diabetic adults. Minority populations were underrepresented and children were not included. (Diabetes Care 31:9124-5857, 2008). The eAG is not equivalent to a fasting glucose. Blood 09/07/2024 10:1 1 AM CDT 09/07/2024 1:10 PM CDT us Raul Askew MD LAB BLOOD ORDERA BLES Final Result [facility] ([place]) 1 [facility] [place] [address] * Glucose, fasting (09/07/2024 10:11 AM CDT) Glucose, fasting 78 70 - 99 mg/dL Blood 09/07/2024 10:1 1 AM CDT 09/07/2024 1:10 PM CDT us Raul Askew MD LAB BLOOD ORDERA BLES Final Result Performing Organization Address [facility] Co de Phone Number [facility] ([place]) 1 [facility] [place] [address] * Folate (09/07/2024 10:11 AM CDT) Folic acid 10.3 >=5.0 ng/mL Comment:Slightly Hemolyzed S pecimen. Results may be affected. Blood 09/07/2024 10:1 1 AM CDT 09/07/2024 1:10 PM CDT us Raul Askew MD LAB BLOOD ORDERA BLES Final Result Performing Organization Address City/[facility]/ZIP Co de Phone Number [facility] ([place]) 1 [facility] [place] [address] * Ferritin (09/07/2024 10:11 AM CDT) Ferritin 90 15 - 150 ng/mL Blood 09/07/2024 10:1 1 AM CDT 09/07/2024 1:10 PM CDT Raul Askew MD LAB BLOOD ORDERA BLES Final Result [facility] ([place]) 1 [facility] [place] [address] * Vitamin B12 (09/07/2024 10:11 AM CDT) Vitamin B12 534 230 - 1,250 pg/mL Blood 09/07/2024 10:1 1 AM CDT 09/07/2024 1:10 PM CDT us Raul Askew MD LAB BLOOD ORDERA BLES Final Result [facility] ([place]) 1 [facility] [place] [address] * Lipid panel (09/07/2024 10:11 AM CDT) Cholesterol 137 30 - 199 mg/dL Comment: [...] NCEP Expert Panel. Circulation 2004;110:227 3. Carmine Gallo et al. FOX Cardiol. 2019August 12;5(5):540-548. doi: 10.1001/jamacardio.2020.0013 Current Interpretive Data was last revised on 2023. Non-HDL Cholesterol 94 mg/dL [facility] ([place]) Comment: Interpretive Data [...] last revised on 2017. Chol/HDL ratio 3 CERROSA R [facility] ([place]) Blood 09/07/2024 10:1 1 AM CDT 09/07/2024 1:10 PM CDT us Raul Askew MD LAB BLOOD ORDERA BLES Final Result [facility] ([place]) [address] [place] [address] [place] [address] * Surgical pathology (09/07/2024 10:01 AM CDT) Tissue (Gastric/Stomach biopsy) 09/07/2024 12:35 PM CDT Tissue specimen (specimen) ([place], Biopsy) 09/07/2024 12:36 PM CDT Narrative PATHOLOGY [facility] ([place]) - 09/10/2024 10:20 AM CDT EPIC results best viewed via link to PDF [facility] Department of Pathology [address] [place] [id number] Note to Patients: This report may contain [...] the details. Final Report Patient Name: MANISHA JIMÉNEZ Address: [address] [place] [address] Gender: F : 1990 (Age: 34) Service: Surgery Location: [facility] Hospital #: [id number] Patient Type: [facility] Taken: 09/07/2024 Received: 09/08/2024 Accessioned: 09/08/2024 Reported: [...] submitted in two formalin containers labeled MANISHA JIMÉNEZ. A. The first container is labeled gastric biopsies for H pylori. It is one painting tissue fragment measuring 2 mm. All in A. B. The second container is labeled GE junction. It is one painting 2 mm fragment. All in B. T.A. Maddy Underwood., P.A./Chani Jules M.D. REPORT IMAGES AND SCANNED DOCUMENTS, IF INCLUDED, ONLY VIEWABLE IN PDF VERSION OF REPORT The performance characteristics of some immunohistochemical stains, fluorescence in-situ hybridization tests and immunophenotyping by flow cytometry cited in this report (if any) were determined by the Surgical Pathology Department at [facility] as part of an ongoing air quality technician program and in compliance with federally mandated [...] characteristics determined by the Surgical Pathology Department [facility]. It has not been cleared or approved by the U. S. Food and Drug Administration. Note for decalcified specimens: This assay has not been validated on decalcified tissues. Results should be interpreted with caution given the possibility of false negativity on decalcified specimens Raul Askew MD LAB PATHOLOGY OR DERABLES Final Result PATHOLOGY [facility] ([place]) [address] [place] [address] from Last 3 Months Insurance [facility] [address] [facility] Advance Directives For more information, please contact: [phone] * Full Code (Latest Code Status on File) Date Activated Date Inactivated Comments 09/07/2024 11:15 AM 09/07/2024 5:15 PM * Full Code Date Activated Date Inactivated Comments 09/07/2024 11:15 AM 09/07/2024 11:15 AM Care Teams Hog Dropper Relationship Specialty Start Date End Date Michel Neff MD [address] [facility] [place] [address] PCP - General Internal Medicine 10/09/23
--- OUTSIDE RECORDS SUMMARY | 2024-09-22 22:16 | XMS_ITS | Data Portability ---
Author Organization [facility] Address [address] [place] [address] Care Team Providers Care Immigration Officer Name Role Phone DEVIN TYSON Primary Care Provider Assessment Encounter Date Assessment Date Assessment LastModified by Organization Details LastModified Time 11/05/2021 11/05/2021 MABEL Andrade [email or web address] Not available 11/05/2021 12:00:43 08/02/2024 08/02/2024 RTC 2 wks [email or web address] Not available 07/14 14:37:13 Plan of Treatment Reminders Order Date Submit Date Provider Last Modified By Organization Details Last Modified Time Details Appointments None recorded. Lab vaginal pathogens panel, FREDRICK+probe, vaginal fluid 2021 [facility], [address], [address] [address], [place], [address], 13:08:32 lh + FSH, serum 2021 [facility] (Centralized Electronic Ordering - All Locations), Patient Can Go To The Location Of Their Choice, [address] 13:08:37 dhea-sulfat e, serum 2021 [facility] (Centralized Electronic Ordering - All Locations), Patient Can Go To The Location Of Their Choice, [address] 13:08:35 testosteron e, total, serum 2021 [facility] (Centralized Electronic Ordering - All Locations), Patient Can Go To The Location Of Their Choice, [address] 13:08:35 CMP, serum or plasma 2021 [facility] (Centralized Electronic Ordering - All Locations), Patient Can Go To The Location Of Their Choice, [address] 13:08:33 lipid panel, serum 2021 [facility] (Centralized Electronic Ordering - All Locations), Patient Can Go To The Location Of Their Choice, [address] 13:08:32 TSH, ultra-sensi tive, serum 2021 [facility], [address], [address], 13:08:34 HbA1c (hemoglobin A1c), blood 2021 [facility], [address], [place], [address], 13:08:34 prolactin, serum 2021 [facility], 2022 Sh[address], [place], [address], 13:08:36 HCG, intact + beta subunit, quant, serum or plasma 2021 [facility], 2022 [address], [place], [address], 13:08:36 HIV 1 + 2, meaningful use set 2021 [facility], 2022 Sh[address], [place], [address], 06:12:08 RPR (rapid plasma reagin), serum 2021 [facility], 2022 Sh[address], [place], [address], 2 06:12:08 hepatitis panel (A+B+C), acute, serum 2021 [facility], 2022 Sh[address] Zhao[address], [place], [address], 2 06:12:07 chlamydia trachomatis + neisseria gonorrhoeae + trichomonas vaginalis DNA panel, FREDRICK+probe, unspecified specimen 2021 [facility], 2022 [address], [place], [address], 2 06:12:07 vaginal pathogens panel, FREDRICK+probe, vaginal fluid 2021 [facility], 2022 Sh[address], [place], [address], 2 06:12:26 urinalysis, dipstick 2021 022 [facility] In-Office Order, Internal Use Only DO Not Attach Compendium DO Not Attach Compendium, Do Not Delete/merge, [id number] 2 12:08:26 Referral None recorded. Procedures None recorded. Surgeries None recorded. Imaging None recorded. Medication Orders ketoconazol e 2 % topical cream 2024 025 [facility] #[id number], [address], [place], [id number], 5 14:37:55 meloxicam 7.5 mg tablet 2024 025 [id number], [address], [place], [id number], 5 15:44:45 acetaminoph en 500 mg tablet [facility]22 [facility]23 [facility], [address] [facility], [place], [place], [id number], 3 07:10:47 Augmentin 875 mg-125 mg tablet 2022 023 [facility]61940, [address], [place], [id number], 3 17:00:44 Patient TargetsNo targets recorded. Patient InstructionsNo instructions recorded. Reason for Referral None Reported. Results Created Date Observation Date Name Description Value Unit Range Abnormal Flag Note LastModifiedBy Organization Detail LastModifiedTime 05/24/19 22 05/25/2021 CT, NG, TRICH VAG BY FREDRICK chlamydia by FREDRICK Negati ve negati ve Not Available [facility] ([facility]) [address] [place], [address], 05/26/2021 06:12:26 05/24/1905/25/2021 CT, NG, TRICH VAG BY FREDRICK gonococcus by FREDRICK Negati ve negati ve Not Available [facility] ([facility]) [address] [place], [address], 05/26/2021 06:12:26 05/24/19 22 05/25/2021 CT, NG, TRICH VAG BY FREDRICK trich vag by FREDRICK Negati ve negati ve Not Available [facility] ([facility]) [address] [place], [address], 05/26/2021 06:12:26 05/24/1905/24/2021 urina lysis , dipst ick Leukocytes Negati ve Not Available In-Office Order Internal Use Only DO Not Attach Compendium DO Not Attach Compendium, Do Not Delete/merge, [id number] 05/24/2021 11:59:45 05/24/1905/24/2021 urina lysis , dipst ick Nitrite negati ve Not Available In-Office Order Internal Use Only DO Not Attach Compendium DO Not Attach Compendium, Do Not Delete/merge, [id number] 05/24/2021 11:59:45 05/24/19 22 05/24/2021 urina lysis , dipst ick Urobilinogen .2 Not Available In-Of fice Order Internal Use Only DO Not Attach Compendium DO Not Attach Compendium, Do Not Delete/merge, 05/24/2021 11:59:45 05/24/19 22 05/24/2021 urina lysis , dipst ick Protein Negati ve Not Available In-Office Order Internal Use Only DO Not Attach Compendium DO Not Attach Compendium, Do Not Delete/merge, 05/24/2021 11:59:45 05/24/19 22 05/24/2021 urina lysis , dipst ick pH 7.5 Not Available In-Office Order Internal Use Only DO Not Attach Compendium DO Not Attach Compendium, Do Not Delete/merge, 05/24/2021 11:59:45 05/24/19 22 05/24/2021 urina lysis , dipst ick Blood Negati ve Not Available In-Office Order Internal Use Only DO Not Attach Compendium DO Not Attach Compendium, Do Not Delete/merge, 05/24/2021 11:59:45 05/24/19 22 05/24/2021 urina lysis , dipst ick Specific [place] 1.010 Not Available In-Off ice Order Internal Use Only DO Not Attach Compendium DO Not Attach Compendium, Do Not Delete/merge, 05/24/2021 11:59:45 05/24/19 22 05/24/2021 urina lysis , dipst ick Ketone Negati ve Not Available In-Office Order Internal Use Only DO Not Attach Compendium DO Not Attach Compendium, Do Not Delete/merge, 05/24/2021 11:59:45 05/24/19 22 05/24/2021 urina lysis , dipst ick Bilirubin Negati ve Not Available In-Office Order Internal Use Only DO Not Attach Compendium DO Not Attach Compendium, Do Not Delete/merge, 05/24/2021 11:59:45 05/24/19 22 05/24/2021 urina lysis , dipst ick Glucose Negati ve Not Available In-Office Order Internal Use Only DO Not Attach Compendium DO Not Attach Compendium, Do Not Delete/merge, [id number] 05/24/2021 11:59:45 05/24/19 22 05/24/2021 urina lysis , dipst ick Appearance Clear Not Available In-Offi ce Order Internal Use Only DO Not Attach Compendium DO Not Attach Compendium, Do Not Delete/merge, [id number] 05/24/2021 11:59:45 05/24/19 22 05/24/2021 urina lysis , dipst ick Color Yellow Not Available In-Office Order Internal Use Only DO Not Attach Compendium DO Not Attach Compendium, Do Not Delete/merge, 05/24/2021 11:59:45 11/06/19 22 11/06/2021 ACUTE HEPAT ITIS hep A Ab, IgM Negati ve negati ve Not Available [facility] ([facility]) [address] [place], [address], 11/07/2021 06:12:07 11/06/19 22 11/06/2021 ACUTE HEPAT ITIS HBsAg screen Negati ve negati ve Not Available [facility] ([facility]) [address] [place], [address], 11/07/2021 06:12:07 11/06/19 22 11/06/2021 ACUTE HEPAT ITIS hep B core Ab, IgM Negati ve negati ve Not Available [facility] ([facility]) [address] [place], [address], 11/07/2021 06:12:07 11/06/19 22 11/06/2021 ACUTE HEPAT ITIS HCV Ab 0.1 s/co_ ratio 0.0-0. 9 Not Available [facility] ([facility]) [address] [place], [address], 11/07/2021 06:12:07 11/06/19 22 11/06/2021 ACUTE HEPAT ITIS interpretati on: Commen t Negat stiven Not infec claritza with HCV, unles s recen t infec tion is suspe cted or other evide nce exist s to indic ate HCV infec tion. Not Available [facility] ([facility]) [address] [facility], [place], [address], 11/07/2021 06:12:07 11/06/19 22 11/07/2021 CT, NG, TRICH VAG BY FREDRICK chlamydia by FREDRICK Negati ve negati ve Not Available [facility] ([facility]) [address] [place], [address], 11/07/2021 06:12:07 11/06/19 22 11/07/2021 CT, NG, TRICH VAG BY FREDRICK gonococcus by FREDRICK Negati ve negati ve Not Available [facility] ([facility]) [address] [facility], [place], [address], 11/07/2021 06:12:07 11/06/19 22 11/07/2021 CT, NG, TRICH VAG BY FREDRICK trich vag by FREDRICK Negati ve negati ve Not Available [facility] ([facility]) [address] [place], [address], 11/07/2021 06:12:07 11/06/19 22 11/06/2021 RPR, RFX QN RPR/C ONFIR M TP RPR Non Reacti ve non reacti ve Not Available [facility] ([facility]) [address] [place], [address], 11/07/2021 06:12:08 11/06/19 22 11/06/2021 HIV AB/P2 4 AG WITH REFLE X HIV Ab/P24 Ag screen Non Reacti ve non reacti ve HIV Negat stiven HIV-1 /HIV- 2 antib odies and HIV-1 p24 antig en were NOT detec claritza. There is no labor atory evide nce of HIV infec tion. Not Available [facility] ([facility]) [address] [place], [address], 11/07/2021 06:12:08 02/08/2002/08/2022 NUSWA B VAGIN ITIS PLUS (VG+) atopobium vaginae High - 2 score abnormal Not Available [facility] ([facility]) [address] [facility], [place], [address], 02/09/2022 13:08:32 02/08/2002/08/2022 NUA B VAGIN ITIS PLUS (VG+) bvab 2 High - 2 score abnormal Not Available [facility] ([facility]) [address] [facility], [place], [address], 02/09/2022 13:08:32 02/08/2002/08/2022 NUA B VAGIN ITIS PLUS (VG+) megasphaera 1 High - 2 score abnormal Calcu late total score by rachel g the 3 indiv idual bacte rial vagin osis (BV) marke r score s toget her. Total score is inter prete d as follo ws: Total score 0-1: Indic ates the absen ce of BV. Total score 2: Indet ermin ate for BV. Addit ional clini kanu data shoul d be evalu ated to estab dimitrios a diagn osis. Total score 3-6: Indic ates the prese nce of BV. This test was devel oped and its perfo rmanc e mina cteri stics deter mined by [facility]. It has not been clear ed or appro dimitris by the Food and Drug Admin istra tion. Not Available [facility] ([facility]) [address] [facility], [place], [address], 02/09/2022 13:08:32 02/08/2002/08/2022 NUA B VAGIN ITIS PLUS (VG+) janee albicans, FREDRICK Negati ve negati ve Not Available [facility] ([facility]) [address] [facility], [place], [address], 02/09/2022 13:08:32 02/08/20 22 02/08/2022 NUSWA B VAGIN ITIS PLUS (VG+) janee glabrata, FREDRICK Negati ve negati ve Not Available [facility] ([facility]) [address] [facility], [place], [address], 02/09/2022 13:08:32 02/08/20 22 02/09/2022 NUA B VAGIN ITIS PLUS (VG+) trich vag by FREDRICK Negati ve negati ve Not Available [facility] ([facility]) [address] [facility], [place], [address], 02/09/2022 13:08:32 02/08/2002/09/2022 NUA B VAGIN ITIS PLUS (VG+) chlamydia trachomatis, FREDRICK Negati ve negati ve Not Available [facility] ([facility]) [address] [facility], [place], [address], 02/09/2022 13:08:32 02/08/2002/09/2022 NUA B VAGIN ITIS PLUS (VG+) neisseria gonorrhoeae, FREDRICK Negati ve negati ve Not Available [facility] ([facility]) [address] [facility], [place], [address], 02/09/2022 13:08:32 02/08/20 22 02/08/2022 LIPID PANEL WITH LDL/H DL RATIO cholesterol, total 152 mg/dL 100-19 9 Not Available [facility] ([facility]) [address] [facility], [place], [address], 02/09/2022 13:08:32 02/08/20 22 02/08/2022 LIPID PANEL WITH LDL/H DL RATIO triglyceride s 86 mg/dL 0-149 Not Available [facility] ([facility]) [address] [facility], [place], [address], 02/09/2022 13:08:32 02/08/20 22 02/08/2022 LIPID PANEL WITH LDL/H DL RATIO HDL cholesterol 50 mg/dL >39 Not Available [facility] ([facility]) [address] [place], [address], 02/09/2022 13:08:32 02/08/20 22 02/08/2022 LIPID PANEL WITH LDL/H DL RATIO VLDL cholesterol kanu 16 mg/dL 5-40 Not Available [facility] ([facility]) [address] [place], [address], 02/09/2022 13:08:32 02/08/20 22 02/08/2022 LIPID PANEL WITH LDL/H DL RATIO LDL chol calc (nih) 86 mg/dL 0-99 Not Available [facility] ([facility]) [address] [facility], [place], [address], 02/09/2022 13:08:32 02/08/20 22 02/08/2022 LIPID PANEL WITH LDL/H DL RATIO LDL/HDL ratio 1.7 ratio 0.0-3. 2 LDL/H DL Ratio Men Women 1/2 Avg.R isk 1.0 1.5 Avg.R isk 3.6 3.2 2X Avg.R isk 6.2 5.0 3X Avg.R isk 8.0 6.1 Not Available [facility] ([facility]) [address] [place], [address], 02/09/2022 13:08:32 02/08/20 22 02/08/2022 COMP. METAB OLIC PANEL (14) glucose 93 mg/dL 70-99 Not Available [facility] ([facility]) [address] [place], [address], 02/09/2022 13:08:33 02/08/20 22 02/08/2022 COMP. METAB OLIC PANEL (14) BUN 11 mg/dL 6-20 Not Available [facility] ([facility]) [address] [place], [address], 02/09/2022 13:08:33 02/08/20 22 02/08/2022 COMP. METAB OLIC PANEL (14) creatinine 0.56 mg/dL 0.57-1 .00 below low normal Not Available [facility] ([facility]) [address] [facility], [place], [address], 02/09/2022 13:08:33 02/08/20 22 02/08/2022 COMP. METAB OLIC PANEL (14) eGFR 123 mL/mi n/1.7 3 >59 Not Available [facility] ([facility]) [address] [facility], [place], [address], 02/09/2022 13:08:33 02/08/20 22 02/08/2022 COMP. METAB OLIC PANEL (14) BUN/creatini ne ratio 20 9-23 Not Available [facility] ([facility]) [address] [facility], [place], [address], 02/09/2022 13:08:33 02/08/20 22 02/08/2022 COMP. METAB OLIC PANEL (14) sodium 142 mmol/ L 134-14 4 Not Available [facility] ([facility]) [address] [facility], [place], [address], 02/09/2022 13:08:33 02/08/20 22 02/08/2022 COMP. METAB OLIC PANEL (14) potassium 4.2 mmol/ L 3.5-5. 2 Not Available [facility] ([facility]) [address] [facility], [place], [address], 02/09/2022 13:08:33 02/08/20 22 02/08/2022 COMP. METAB OLIC PANEL (14) chloride 106 mmol/ L 96-106 Not Available [facility] ([facility]) [address] [facility], [place], [address], 02/09/2022 13:08:33 02/08/20 22 02/08/2022 COMP. METAB OLIC PANEL (14) carbon dioxide, total 22 mmol/ L Not Available [facility] ([facility]) [address] [facility], [place], [address], 02/09/2022 13:08:33 02/08/20 22 02/08/2022 COMP. METAB OLIC PANEL (14) calcium 9.3 mg/dL 8.7-10 .2 Not Available [facility] ([facility]) [address] [facility], [place], [address], 02/09/2022 13:08:33 02/08/20 22 02/08/2022 COMP. METAB OLIC PANEL (14) protein, total 6.3 g/dL 6.0-8. 5 Not Available [facility] ([facility]) [address] [facility], [place], [address], 02/09/2022 13:08:33 02/08/20 22 02/08/2022 COMP. METAB OLIC PANEL (14) albumin 4.2 g/dL 3.8-4. 8 Not Available [facility] ([facility]) [address] [facility], [place], [address], 02/09/2022 13:08:33 02/08/20 22 02/08/2022 COMP. METAB OLIC PANEL (14) globulin, total 2.1 g/dL 1.5-4. 5 Not Available [facility] ([facility]) [address] [facility], [place], [address], 02/09/2022 13:08:33 02/08/20 22 02/08/2022 COMP. METAB OLIC PANEL (14) A/G ratio 2.0 1.2-2. 2 Not Available [facility] ([facility]) [address] [facility], [place], [address], 02/09/2022 13:08:33 02/08/20 22 02/08/2022 COMP. METAB OLIC PANEL (14) bilirubin, total 0.4 mg/dL 0.0-1. 2 Not Available [facility] ([facility]) [address] [facility], [place], [address], 02/09/2022 13:08:33 02/08/20 22 02/08/2022 COMP. METAB OLIC PANEL (14) alkaline phosphatase 95 IU/L 44-121 Not Available [facility] ([facility]) [address] [place], [address], 02/09/2022 13:08:33 02/08/20 22 02/08/2022 COMP. METAB OLIC PANEL (14) AST (SGOT) 26 IU/L 0-40 Not Available [facility] ([facility]) [address] [place], [address], 02/09/2022 13:08:33 02/08/20 22 02/08/2022 COMP. METAB OLIC PANEL (14) ALT (SGPT) 27 IU/L 0-32 Not Available [facility] ([facility]) [address] [facility], [place], [address], 02/09/2022 13:08:33 02/08/20 22 02/08/2022 TSH RFX ON ABNOR MAL TO FREE T4 TSH 0.571 uIU/m L 0.450- 4.500 Not Available [facility] ([facility]) [address] [place], [address], 02/09/2022 13:08:34 02/08/20 22 02/08/2022 HEMOG LOBIN A1C hemoglobin A1C 4.9 % 4.8-5. 6 Predi abete s: 5.7 - 6.4 Diabe juan: >6.4 Glyce jos contr ol for adult s with diabe juan: <7.0 Not Available [facility] ([facility]) [address] [facility], [place], [address], 02/09/2022 13:08:34 02/08/20 22 02/08/2022 DHEA- SULFA TE DHEA-sulfate 63.7 ug/dL 84.8-3 78.0 below low normal Not Available [facility] ([facility]) [address] [place], [address], 02/09/2022 13:08:35 02/08/20 22 02/08/2022 TESTO STERO NE testosterone 3 NG/dL 8-60 below low normal Not Available [facility] ([facility]) [address] [place], [address], 02/09/2022 13:08:35 02/08/20 22 02/08/2022 HCG,B ETA SUBUN IT, QNT HCG,beta subunit,qnt, serum <1 mIU/m L Femal e (Non- pregn ant) 0 - 5 (Post menop ausal ) 0 - 8 Femal e (Preg nant) Weeks of Gesta tion 3 6 - 71 4 10 - 750 5 308 - 1507 6 738 - 37794 7 3614 -5735 63 8 88826 -3576 71 9 83645 -4507 10 10 60742 -6461 77 12 19804 -3452 12 14 54419 - 74651 15 22813 - 36042 16 4133 - 14315 17 7737 - 08713 18 5449 - 80450 Sandor ECLIA metho dolog y Not Available [facility] ([facility]) [address] [place], [address], 02/09/2022 13:08:36 02/08/20 22 02/08/2022 PROLA CTIN prolactin 35.9 NG/mL 4.8-23 .3 above high normal Not Available [facility] ([facility]) [address] [place], [address], 02/09/2022 13:08:36 02/08/20 22 02/08/2022 FSH AND LH LH 8.4 mIU/m L Adult Femal e: Folli cular phase 2.4 - 12.6 Ovula tion phase 14.0 - 95.6 Lutea l phase 1.0 - 11.4 Postm enopa usal 7.7 - 58.5 Not Available [facility] ([facility]) [address] [facility], [place], [address], 02/09/2022 13:08:37 02/08/2002/08/2022 FSH AND LH FSH 15.9 mIU/m L Adult Femal e: Folli cular phase 3.5 - 12.5 Ovula tion phase 4.7 - 21.5 Lutea l phase 1.7 - 7.7 Postm enopa usal 25.8 - 134.8 Not Available [facility] ([facility]) [address] [facility], [place], [address], 02/09/2022 13:08:37 Result Notes None recorded. Problems Name Problem SNOMED Code Status Onset Date Resolution Date Notes Provider Name and Address Organization Details Recorded Time Pregnanc y 68517140 Completed 201709/02/2018 [place], [place] - [facility] 9 16:12:50 Urinary tract infectio us disease 00101441 Active 2017 Noy Beyer MD Attn: Zach aranda,[address] [place], [address], [facility] 0 11:27:20 Urinary tract infectio us disease 79092270 Completed 2017 Noy Beyer MD Attn: Zach aranda,[address] [place], [address], [place] [facility] 0 11:27:20 Bacteria l vaginosi s 590626470 Completed 2017 Noy Beyer MD Attn: Zach aranda,[address] [place], [address], [place] [facility] 0 11:27:20 Bacteria l vaginosi s 532084714 Active 2017 Noy Beyer MD Attn: Zach aranda,[address] [place], [address], [place] [facility] 0 11:27:20 Chlamydi al cervicit is 993682745 Completed 2017 Noy Beyer MD Attn: Accountsherri g,[address] [place], [place], [address] [place] [address] 2, [facility] 0 11:27:19 Chlamydi al cervicit is 239849263 Active 2017 Noy Beyer MD Attn: Accountin g,[address] [place], [place], [address] [place] [address] 2, [facility] - [facility] 0 11:27:19 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 Completed 2018 Noy Beyer MD Attn: Accountsherri g,[address] [place], [place], [address] [place] [address] 2, [facility] 0 11:27:20 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 Noy Beyer MD Attn: Accountin g,[address] [place], [place], [address] [place] [address] 2, [facility] - [facility] 0 11:27:20 Genital herpes simplex 18584266 Completed 2018 Noy Beyer MD Attn: Accountsherri g,[address] [place], [place], [address] [place] [address] 2, [facility] 0 11:27:20 Genital herpes simplex 83307673 Active 2018 Noy Beyer MD Attn: Accountsherri g,[address] [place], [place], [address] [place] [address] 2, [facility] - [facility] 0 11:27:20 Abnormal finding on antenata l screenin g of mother 493479611 Completed 2018 Noy Beyer MD Attn: Accountsherri g,[address] [place], [place], [address] [place] [address] 2, [facility] SI 0 11:27:20 Abnormal finding on antenata l screenin g of mother 987527693 Completed 201802/06/2021 [place] Nicholson [facility] 1 15:18:32 Glucose toleranc e test outside referenc e range 688768499 Completed 2018 IMPA[facility] 1 HR GTT Noy Beyer MD Attn: Fransicosherri aranda,[address] [place], [address], [place] [facility] 0 11:27:19 Glucose toleranc e test outside referenc e range 051380979 Active 2018 IMPAIRED 1 HR GTT Noy Beyer MD Attn: Fransicosherri aranda,[address] [place], [place], [address] [place] [address] 2, [place] [facility] 0 11:27:20 Anemia of pregnanc y 62486429 Completed 2018 Noy Beyer MD Attn: Fransicosherri aranda,[address] [place], [place], [address] [place] [address] 2, [place] [facility] 0 11:27:19 Anemia of pregnanc y 50932707 Active 2018 Noy Beyer MD Attn: Fransicosherri aranda,[address] [place], [place], [address] [place] [address] 2, [place] [facility] 0 11:27:19 Female steriliz ation Completed 2018 Noy Beyer MD Attn: Fransicosherri aranda,[address] [place], [place], [address] [place] [address] 2, [place] [facility] 0 11:27:20 Female steriliz ation Active 2018 Noy Beyer MD Attn: Zach rosi,[address] [place], [place], [address] [place] [address] 2, [place] [facility] 0 11:27:20 Deliveri es by 175202426 Active 2019 [place] [facility] 0 13:22:55 Sexually transmit claritza infectio us disease 5173442 Active 2020 [place] ShortLyn [place]arg[place] - [facility] 1 15:24:14 Problem Notes None recorded. Procedures Surgical History Date Name Laterality Status Provider Name and Address Organization Details Recorded Time 08/03/19 25 Matrixectomy completed Carlos Alberto Holland FABIOLA [address] [facility] [place], [address], [facility] 08/02/2024 14:37:00 11/06/19 23 Generic Procedure completed GEOFFREY LEMUS DPM [address], [place], [address], [facility] 11/05/2022 23:10:32 03/27/20 21 Date of Last Pap Smear completed Mattie Gross [place] - [facility] 11/05/2021 11:13:03 10/31/19 19 TUBAL LIGATION (SURG) completed [place]olson [place] - [facility] 11/06/2018 06:45:26 Imaging Results None recorded. Procedure Notes None recorded. Medical Equipment None Reported. Allergies No known drug allergies Medications Name Sig Start Date Stop Date Status Note LastModified by Organization Details LastModified Time cyclobenzap rine 10 mg tablet TAKE 1 TABLET BY MOUTH EVERY 8 HOURS active Not Available Not Available No t Available Lice Killing 0.33 %-4 % shampoo APPLY TOPICALLY A ONE-TIME DOSE active Not Available Not Available No t Available doxycycline hyclate 100 mg capsule TAKE 1 CAPSULE BY MOUTH TWICE DAILY FOR 1 WEEK 03/27 completed Not Available Not Available Not Available clindamycin HCl 300 mg capsule 03/01 completed Not Available Not Available Not Available trazodone 50 mg tablet Take 1 tablet every day by oral route. active Not Available Not Available No t Available cetirizine 10 mg tablet 02/06 completed Not Available Not Available Not Available ibuprofen 800 mg tablet TAKE 1 TABLET BY MOUTH EVERY 6-8 HOURS NEEDED active Not Available Not Available No t Available nystatin 100,000 unit/gram topical ointment APPLY TOPICALLY TO THE AFFECTED AREA TWICE DAILY 03/27 completed Not Available Not Available Not Available fluconazole 150 mg tablet Take 1 tablet every 72 hours by oral route as directed for 6 days. 05/24 completed Not Available Not Available Not Available valacyclovi r 1 gram tablet TAKE 1 TABLET BY MOUTH EVERY 12 HOURS FOR 1 WEEK 11/05 completed Not Available Not Available Not Available senna 8.6 mg tablet active Not Available Not Available No t Available meloxicam 15 mg tablet TAKE 1 TABLET BY MOUTH DAILY active Not Available Not Available No t Available phenazopyri dine 200 mg tablet active Not Available Not Available Not Available metronidazo le 0.75 % (37.5 mg/5 gram) vaginal gel Insert 1 applicato rful every day by vaginal route for 5 days. 08/11 completed Not Available Not Available Not Available penicillin V potassium 500 mg tablet 08/11 completed Not Available Not Available Not Available metronidazo le 500 mg tablet Take 1 tablet twice a day by oral route as directed for 7 days. active Not Available Not Available No t Available ciprofloxac in 500 mg tablet Take 1 tablet every 12 hours by oral route for 10 days. 03/01 completed Not Available Not Available Not Available tramadol 50 mg tablet 03/27 completed Not Available Not Available Not Available Condoms-Pre m Lubricated Take 1 device by miscell. route. 03/27 completed Not Available Not Available Not Available acetaminoph en 500 mg tablet Take 1 tablet every day by oral route with meals for 7 days. active Not Available Not Available No t Available amoxicillin 500 mg tablet TAKE 1 TABLET BY MOUTH EVERY 8 HOURS FOR 10 DAYS active Not Available Not Available No t Available acyclovir 800 mg tablet Take 1 tablet every day by oral route. 03/27 completed Not Available Not Available Not Available Vitamin tablet Take 1 tablet every day by oral route as directed for 90 days. 01/05 completed Not Available Not Available Not Available risperidone 2 mg tablet 11/05 completed Not Available Not Available Not Available meloxicam 7.5 mg tablet TAKE 1 TABLET BY MOUTH ONCE DAILY active Not Available Not Available No t Available oxycodone-a cetaminophe n 5 mg-325 mg tablet 11/03 completed Not Available Not Available Not Available terbinafine HCl 250 mg tablet Take 1 tablet every day by oral route for 30 days. active Not Available Not Available No t Available cephalexin 500 mg capsule TAKE 1 CAPSULE BY MOUTH EVERY 6 HOURS FOR 10 DAYS active Not Available Not Available No t Available paroxetine 20 mg tablet Take 1 tablet every day by oral route. active Not Available Not Available No t Available oseltamivir 75 mg capsule TAKE 1 CAPSULE BY MOUTH EVERY 12 HOURS FOR 5 DAYS active Not Available Not Available No t Available ferrous sulfate 325 mg (65 mg iron) tablet Take 1 tablet twice a day by oral route. 03/27 completed Not Available Not Available Not Available nystatin 100,000 unit/gram topical cream APPLY TO THE AFFECTED AREA(S) BY TOPICAL ROUTE 2 TIMES PER DAY X 10 DAYS 05/24 completed Not Available Not Available Not Available ibuprofen 400 mg tablet Take 1 tablet every 6-8 hours by oral route for 14 days. 03/27 completed Not Available Not Available Not Available hydroxyzine HCl 25 mg tablet active Not Available Not Available Not Available ibuprofen 600 mg tablet 02/06 completed Not Available Not Available Not Available estradiol 0.01% (0.1 mg/gram) vaginal cream INSERT 1/2 APPLICATO FUL VAGINALLY 3 TIMES PER WEEK FOR VAGINAL DRYNESS active Not Available Not Available No t Available Vitamin D2 1,250 mcg (50,000 unit) capsule TAKE 1 CAPSULE BY MOUTH ONCE EVERY MONTH active Not Available Not Available No t Available ketoconazol e 2 % topical cream APPLY TOPICALLY TO THE AFFECTED AREA DAILY active Not Available Not Available No t Available topiramate 100 mg tablet active Not Available Not Available Not Available metformin ER 500 mg tablet,exte nded release 24 hr TAKE 1 TABLET BY MOUTH ONCE DAILY WITH EVENING MEAL active Not Available Not Available No t Available clotrimazol e 1 % topical cream 03/27 completed Not Available Not Available Not Available dicyclomine 10 mg capsule Take 1 capsule 3 times a day by oral route. 11/05 completed Not Available Not Available Not Available naproxen 500 mg tablet TAKE 1 TABLET BY MOUTH TWICE DAILY WITH FOOD active Not Available Not Available No t Available amoxicillin 875 mg-potassiu m clavulanate 125 mg tablet TAKE 1 TABLET BY MOUTH TWICE DAILY FOR 7 DAYS active Not Available Not Available No t Available minoxidil 2 % topical solution APPLY 1 MILLILITE R BY TOPICAL ROUTE 2 TIMES PER DAY , EVERY DAY, DIRECTLY ONTO THE SCALP IN THE HAIR LOSS AREA 03/27 completed Not Available Not Available Not Available buspirone 15 mg tablet Take 1 tablet twice a day by oral route. 03/18 completed Not Available Not Available Not Available Lice Killing (permethrin ) 1 % topical liquid APPLY A SUFFICIEN T AMOUNT OF SHAMPOO BY TOPICAL ROUTE ONCE ALLOW TO REMAIN ON HAIR FOR 10 MINUTES BEFORE RINSING OFF WITH WATER; repeat in 10 days 03/18 completed Not Available Not Available Not Available hydrocortis one 1 % topical cream with perineal applicator APPLY CREAM EXTERNALL Y TO SCALP THREE TIMES DAILY NEEDED FOR ITCHING active Not Available Not Available No t Available azithromyci n 500 mg tablet Take 2 tablets every day by oral route for 1 day. 04/22 completed Not Available Not Available Not Available topiramate 50 mg tablet 05/24 completed Not Available Not Available Not Available nitrofurant oin monohydrate /macrocryst als 100 mg capsule TAKE 1 CAPSULE BY MOUTH TWICE DAILY FOR 7 DAYS active Not Available Not Available No t Available chlorhexidi ne gluconate 0.12 % mouthwash SWISH AND SPIT 15 ML BY MOUTH TWICE DAILY FOR 10 DAYS active Not Available Not Available No t Available Invega Sustenna 156 mg/mL intramuscul ar syringe active Not Available Not Available N ot Available Invega Sustenna 117 mg/0.75 mL intramuscul ar syringe active Not Available Not Available N ot Available PrePlus 27 mg iron-1 mg tablet 11/03 completed Not Available Not Available Not Available Trulicity 1.5 mg/0.5 mL subcutaneou s pen injector active Not Available Not Available Not Available Trulicity 0.75 mg/0.5 mL subcutaneou s pen injector active Not Available Not Available Not Available Trulicity 3 mg/0.5 mL subcutaneou s pen injector active Not Available Not Available Not Available Trulicity 4.5 mg/0.5 mL subcutaneou s pen injector active Not Available Not Available Not Available Ozempic 0.25 mg or 0.5 mg (2 mg/3 mL) subcutaneou s pen injector INJECT 1/4 (ONE-FOUR TH) MG SUBCUTANE OUSLY ONCE A WEEK active Not Available Not Available No t Available Vitals Date Recorded Body height Body mass index (BMI) Body weight Heart rate Body temperature Oxygen saturation Oxygen saturation in Arterial blood by Pulse oximetry Systolic blood pressure Diastolic blood pressure Provider Name and Address Organization Details Last Updated DateTime 2 154.94 cm 38.1 kg/m2 01268.2 6 g 67 /min 98.4 [degF] 98 % 98 % 102 mm[Hg] 80 mm[Hg] Mattie Gross MA [place] - [facility] 2 11:44:15 Date Recorded Heart rate Body weight Body mass index (BMI) Body height Systolic blood pressure Diastolic blood pressure Provider Name and Address Organization Details Last Updated DateTime 5 79 /min 672032. 72 g 44 kg/m2 152.4 cm 95 mm[Hg] 63 mm[Hg] Lila Bragg MA [facility] 5 14:24:33 Date Recorded Body height Body mass index (BMI) Body weight Heart rate Body temperature Oxygen saturation Oxygen saturation in Arterial blood by Pulse oximetry Systolic blood pressure Diastolic blood pressure Provider Name and Address Organization Details Last Updated DateTime 2 154.94 cm 39.3 kg/m2 88218.2 1 g 79 /min 97.9 [degF] 98 % 98 % 102 mm[Hg] 64 mm[Hg] Mattie Gross MA [facility] 2 11:11:55 Date Recorded Body height Body mass index (BMI) Body weight Heart rate Body temperature Systolic blood pressure Diastolic blood pressure Provider Name and Address Organization Details Last Updated DateTime 3 154.94 cm 44.1 kg/m2 586948. 18 g 71 /min 98.6 [degF] 128 mm[Hg] 71 mm[Hg] Flower Torres MA [facility] 3 14:46:22 Date Recorded Body height Body mass index (BMI) Body weight Body temperature Heart rate Oxygen saturation Oxygen saturation in Arterial blood by Pulse oximetry Systolic blood pressure Diastolic blood pressure Provider Name and Address Organization Details Last Updated DateTime 2 154.94 cm 41.2 kg/m2 61980.1 4 g 98.1 [degF] 81 /min 98 % 98 % 100 mm[Hg] 70 mm[Hg] Sari Chua MA [facility] 2 09:28:30 Social History Question Answer Notes LastModified by Organizat ion Details LastModified Time Tobacco Smoking Status Never Smoker Jeffrey Avendaño MA null, [facility] 03/18/2018 14:25:41 Do You Have An Advance Directive? No Information n ot available 07/15/2016 If You Are , What Was Your Level Of Alcohol Consumption Prior To ? Occasional Information not available 03/18/2018 Plan No Information no t available 03/18/2018 Is Blood Transfusion Acceptable In An Emergency? Yes Information not available 03/18/2018 What Is Your Level Of Caffeine Consumption? None Information not available 07/15/2016 Live With Cats/exposure To Cat Litter No Information not available 03/18/2018 In The 14 Days Before Symptom Onset, Have You Had Close Contact With A Laboratory-confirm ed COVID-19 While That Case Was Ill? No Information n ot available 11/05/2021 In The 14 Days Before Symptom Onset, Have You Had Close Contact With A Person Who Is Under Investigation For COVID-19 While That Person Was Ill? No Information not available 11/05/2021 Have You Been To An Area Known To Be High Risk For COVID-19? No Information not available 11/05/2021 What Type Of Diet Are You Following? REGULAR Information n ot available 07/15/2016 Which Illicit Or Recreational Drugs Have You Used? Denies Information not available 03/18/2018 Education 12 Information no t available 03/18/2018 What Is The Highest Grade Or Level Of School You Have Completed Or The Highest Degree You Have Received? [id number] Information not available 02/06/2021 Have There Been Any Changes To Your Family Or Social Situation? No Information no t available 03/18/2018 Frequent Air Travel No Information not available 03/18/2018 Are There Any Guns Present In Your Home? No Information not available 03/18/2018 Hard Of Hearing Or Deaf In One Or Both Ears? Yes Information not available 07/15/2016 Illicit Drugs Pre- Marijuana Information not available 03/18/2018 Legally Blind In One Or Both Eyes? No Information no t available 07/15/2016 Live Alone Or With Others? With Others Information not available 07/15/2016 Marital Status Single Informatio n not available 03/18/2018 Do You Have A Medical Power Of Re Dye Hand? No Information not available 11/05/2022 What Was The Date Of Your Most Recent Tobacco Screening? 11/05/2022 Information not available 11/05/2022 How Many Children Do You Have? 4 Information not available 01/05/2019 Do You Use Protection During Sex? Usually Information not available 03/18/2018 What Is Your Relationship Status? Single Information not available 03/18/2018 Do You Use Your Seat Belt Or Car Seat Routinely? Yes Information not available 02/06/2021 Seat Belts Used Routinely Yes Information not available 07/15/2016 Are You Sexually Active? Yes Information not available 01/05/2019 Smoke Alarm In Home Yes Information not available 03/18/2018 Do You Have Smoke And Carbon Monoxide Detectors In Your Home? Yes Information not available 03/18/2018 Are You Passively Exposed To Smoke? No Information no t available 03/18/2018 Smoking Pre- No Information not available 03/18/2018 General Stress Level Low Information not available 03/01/2020 Do You Use Sunscreen Routinely? No Information not available 07/15/2016 Has Tobacco Cessation Counseling Been Provided? No Information not available 09/02/2018 On What Date Was Tobacco Cessation Counseling Provided? 08/02/2024 atatema Information not available 08/02/2024 Sex: Female Functional Status Question Answer Note LastModified by Organizat ion Details LastModified Time Do you use any illicit or recreational drugs? No Information not available 02/06/2021 Do you or have you ever used any other forms of tobacco or nicotine? No Information not available 02/06/2021 What is your level of alcohol consumption? None Information not available 03/18/2018 Do you or have you ever used smokeless tobacco? Never used smokeless tobacco Information not available 01/21/2020 Are you currently employed? No [email or web address] Information not available 03/18/2018 Are you able to care for yourself? 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 Never used electronic cigarettes Information not available 01/05/2019 What is your exercise level? None Information not available 07/15/2016 Mental Status None recorded. Family History Relationship Description Onset Age of this Age Resolved Age Notes LastModified by Organization Details LastModified Time Maternal Grandmother Malignant tumor of breast [email or web address] Not available 2016 16:48:51 Maternal Grandfather Hypercholest erolemia thulsema Not available 2016 16:49:07 Father No current problems or disability [email or web address] Not available 08/13 16:14:05 Mother No current problems or disability [email or web address] Not available 08/13 16:14:05 Medical History Condition Response Coronary Artery Disease N Other N Atrial Fibrillation N High Blood Pressure N Breast Cancer N Depression N COPD N Blood Clots N Lung Disease N Breast Problem N Anesthesia Complications N Headaches/Migraines N Anxiety Disorder N Muscle, Joint, or Bone Problems N Infertility N Polyps N Acid Reflux (GERD) N Cancer N Stroke N Endometriosis N High Cholesterol N Liver Disease N Headaches Y Thyroid Problems N Kidney or Bladder Problems N GI Problems N Acne N Skin Problems N Eating Disorder N Anemia N Heart Attack (DE) N Ovarian Cancer N Diabetes N Blood Transfusions N Seizures/Epilepsy N Abuse/Domestic Violence N Allergies Y Asthma N Hepatitis N Heart Disease N Pre-Eclampsia N Osteoporosis N Heart Failure N Gynecological History Statement/Question Response Abnormal Pap N Flow Moderate Date of LMP 01/24/2022 On BCP's at Conception? N STIs/STDs Y HPV Vaccine N Duration of Flow (days) 3 Age at Menarche 11 Current Control Method Tubal Ligat ion Age at First Child 18 Frequency of Cycle (Q days) 26 Sexually Active? Y Menses Monthly N Date of Last Pap Smear 03/27/2021 Sexual Problems? N LMP Definite Desired Control Method None Obstetrics History GPAL:G 4 P 4 0 0 4 Type Value Multiple Births 0 Full Term 4 Induced 0 Spontaneous 0 Premature 0 Living 4 Ectopics 0 Total 4 Immunizations Vaccine Type Date Status Note Provider Nam e and Address Organization Details Recorded Time Tdap 06/11/2018 completed Not Available [facility] 05/01/2019 02:44:21 Tdap 02/22/2016 completed [place]AL [place], [place] - [facility] 01/14/2017 16:59:12 Past Encounters Encounter ID Performer Location Encounter Start Date Encounter Closed Date Diagnosis/Indication Diagnosis SNOMED-CT Code Diagnosis ICD10 Code Diagnosis Note [id number] HORACIO Ascencio NP [facility] [address] [place] [address] 07/15/2016 16:23:17 07/15/2016 17:33:40 Low back pain 685070343 M54.5 Naproxen prn. Rest, ice. Discussed good body mechanics and low back exercises. F/u if symptoms persist/wo rsen Gallstone 432158048 K80. 20 Discussed low fat diet. F/u if symptoms persist/wo rsen. Onychomyco sis of toenails 437866946 B35.1 Obtain CMP. Start oral/topic al regimen after reviewed. F/u 2 weeks Pediculosis capitis 8100 0006 B85.0 Start permethrin as directed. Discussed lice treatment and prevention . [id number] HORACIO Ascencio NP [facility] [address] [place] [address] 07/19/2016 10:40:41 08/14/2016 12:06:50 Onychomycosis of toenails 832696919 B35.1 [id number] MD Erin Rodriguez ([employer]PLE[employer]) [address] [place] [id number] 03/18/2018 14:06:09 03/19/2018 11:31:31 Routine care 607058026 Z34.90 Obese 856694161 E66.9 Urinary tr act infectious disease 58908407 N39.0 Counseled about it. Positive s creening for depression on PHQ-9 (Patient Health Questionnaire 9) 8952200939 45795 Z13.89 Advised patient to f/u with Counselor. [id number] MD Erin Rodriguez ([employer]ST[employer]) [address] [place] [address] 05/01/2018 14:34:02 05/05/2018 16:45:08 Routine care 040862379 Z34.90 Urinary tr act infectious disease 42769509 N39.0 Counseled about it. History of chlamydial infection 995717604 Z86.19 D/W patient nuswab result. She say she took azithromyc in and partner was treated. Counseled about it. Safe sex counseling and use of condoms. Advised patient no intercours e until treatment. Notified patient that Partner need to be treated. THOMAS done today. Group [facility] reptococcus carrier 0610121430 103 Z22.330 d/w patient about it and counseled thoroughly about it. Genital he rpes simplex 26088863 A60.9 Counseled thoroughly about it and safe sex. Advised patient to report outbreaks. Patient on acyclovir for suppressio n. Advised patient to continue. [id number] Kathryn Ferguson MD [facility] ([employer]) [address] [place] [id number] 06/11/2018 14:56:41 06/11/2018 15:25:12 Routine care 886227841 Z34.90 Diabetes m ellitus screening 599555660 Z13.1 Abnormal f inding on screening of mother 042678072 O28.9 Patient say she saw [facility] and she say she had blood work done for genetics at that time. Patient refused amniocente sis. Advised nurse Shantel to get the records. e say she had f/u appointmen t. Reduced fe adonis movement 906463221 O36.8199 Counseled about it. Patient to L & D for NST and BPP today. Kick counts discussed. Acute urin destini tract infection 239901929 N39.0 Counseled about it. [id number] [facility] [address] [place] [id number] 09/02/2018 11:40:50 09/04/2018 09:48:31 Routine care 269395924 Z34.[address] reptococcus carrier 5943719710 103 Z22.330 Abnormal f inding on screening of mother 902246558 O28.9 Chlamydial cervicitis 23 7258928 A56.09 Anemia of 2734 2003 O99.019 Glucose to lerance test outside reference range 324834126 R73.09 Genital he rpes simplex 81071020 A60.9 Female sterilization 608 51964 Z30.2 Acute urin destini tract infection 732995995 N39.0 [id number] Michoacano Nicholson MD [facility] ([employer] IN[employer]) [address] [place] [id number] 09/17/2018 16:39:06 09/21/2018 11:28:08 care 527688027 Z39.2 d elivery - delivered 243423474 O82 Female sterilization 608 66953 Z30.2 [id number] Michoacano Nicholson MD [facility] ([employer]) [address] [place] [id number] 10/14/2018 14:32:49 10/14/2018 19:25:53 [id number] Michoacano Nicholson MD [facility] ([employer] IN[employer]) [address] [place] [id number] 11/03/2018 11:29:05 11/06/2018 09:44:46 care 152464145 Z39.2 Exposure t o sexually transmissible disorder 684821968 Z20.2 Female sterilization [address] reptococcus carrier 5687637539 103 Z22.914 [id number] [facility] [facility] INST[employer]) [address] [place] [id number] 01/05/2019 10:06:43 01/06/2019 16:01:05 Deliveries by [id number] O82 Bacterial vaginosis 4197 55635 N76.0 Candidiasis of skin 4988 3006 B37.2 [id number] MAX AARON [facility] [address] [place] [address] 01/21/2020 15:26:05 01/24/2020 11:29:18 Loss of hair 706598681 L65.9 Patient presents for hair loss x 2 months. Will check labs. - balanced diet- control stress- f/u prn [id number] MAX AARON [facility] [address] [place] [address] 03/01/2020 16:20:22 03/04/2020 18:48:40 Acute sciatica 919337756 M54.31 patient with right sided pain that shoots to leg. - ibuprofen 400mg tid- exercises given- weight loss- f/u prn Loss of hair 223578379 L 65.9 Patient presents for hair loss x 2 months. Will check labs. - balanced diet- control stress- f/u prn Obesity 314855794 E66.9 BMI 36.8. discussed diet and excercise. Advised cutting back on sweet tea as she had replaced soda with this. We discussed no more than 20g of added sugar per day. Discussed portion sizes. She would like to see heading maker. [id number] MAX AARON [facility] [address] [place] [address] 06/06/2020 08:13:09 06/09/2020 11:45:21 Candidiasis of vagina 03453216 B37.3 Take your medicines exactly as prescribed . Call your doctor if you think you are having a problem with your medicine. Ask your doctor about over-the-c ounter (OTC) medicines for yeast infections . They may cost less than prescripti on medicines. If you use an OTC treatment, read and follow all instructio ns on the label. Do not use tampons while using a vaginal cream or suppositor y. The tampons can absorb the medicine. Use pads instead. Wear loose cotton clothing. Do not wear nylon or other fabric that holds body heat and moisture close to the skin. Try sleeping without underwear. Do not scratch. Relieve itching with a cold pack or a cool bath. Do not wash your vaginal area more than once a day. Use plain water or a mild, unscented soap. Air-dry the vaginal area. Change out of wet swimsuits after swimming. Do not have sex until you have finished your treatment. Do not douche. [id number] MAX AARON [facility] [address] [place] [address] 08/11/2020 08:05:10 08/11/2020 16:46:04 Cyst of Bartholin's gland duct 13017946 N75.0 On exam patient has bartholin cyst. 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 Vaginal discharge 735924 006 N89.8 Patient has had increased vaginal discharge x 2 months. Has a change in smell. Started out as itchy. Obtained nuswab in office. on exam patient has cyst of bartholin gland. Will see obgyn. denies fever, chills, abnormal periods, pelvic pain, dysuria, increased urine frequency - need to redo swab as it is Friday and [facility] already came today. 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) [address] [place] [id number] 02/06/2021 14:43:12 02/07/2021 13:03:43 Female sterilization 75304891 Z30.2 2019 Genital he rpes simplex 15473961 A60.[address] reptococcus carrier 8335759400 103 Z22.330 Deliveries by [id number] O82 Family lyly nning surveillance 443355711 Z30.09 tubal ligation 2019 Sexually t ransmitted infectious disease 1775837 A64 exposure to trichomona s, rx given in ER ~01/23/21 Irritable bowel syndrome 95538803 K58.9 dicyclomin e as needed [id number] MAX POMPA (Adult Med) [address] [place] [id number] 03/27/2021 11:22:57 03/28/2021 13:12:29 Gynecologic examination 70827609 Z01.419 She follows with OBGYN upstairs regularly and follows with [place] for and primary care.Compl aining of external vaginal rashLast pap smear 11/03/18 - normalOn PE: superior aspect of cervix concerning for strawberry cervix, bimanual exam slightly uncomforta ble for patient- urine testing showed + LE, asymptomat ic - less likely from UTI and more vaginitis- pap smear completed today- nuswab completed today to rule out infection- will hold off on PID treatment at his time since normal vitals, no pelvic pain, and only mild discomfort on bimanual exam Candidal vulvovaginitis [id number] B37.3 Complainin g of dry, painful, pruritic rash on the outside of her vagina and her inner thighs x 2 weeksState s she has had a similar rash before but it usually goes away on its ownAdmits to over washing and scrubbing her genitalsDe nies history of diabetesBM I 38.2- topical nystatin cream prescribed with refills that way she can use in the future if rash returns- oral diflucan prescribed additional ly due to severity of rash and possible internal vaginal candidiasi s- nuswab completed today- informatio n given to patient about candidiasi s and how to prevent, encouraged her to work on weight loss, keeping area clean and dry, and wearing less tight clothing when at home to let area air out Cellulitis [id number] L03 .90 Complainin g of 2 small painful skin lesions on her right lower abdomen x 1 week. States they started off as blister filled lesions and then turned into almost shallow ulcers. The surroundin g skin has become more erythemato us over the last few days which is causing her more pain.Denie s recurrent skin abscesses. Denies taking injectable medication s. Denies history of diabetes. Denies conern for STDs. Denies fever, chills, nausea, vomiting, and lesions elsewhere on her body.- concern for cellulitis surroundin g the 2 small scabbed over ulcers on LLQ, will start cephalexin QID x 7 days to treat- if positive for STD on swab, consider screening with RPR testing- f/u with PCP [id number] [facility] (Adult Med) [address] [place] [phone] 05/24/2021 11:30:04 05/25/2021 12:48:37 Infection by Trichomonas [id number] A59.9 She recently tested positive for trichomono as, she was asymptomat ic at this time, she took the medication as prescribed and doing well today.Devendra es fever, chills, nausea, vomiting, pelvic pain, vaginal discharge and vaginal lesions.- urine dipstick normal the office today- urine collected for THOMAS, will call with results- use condoms in the future to protect against STDs [id number] [facility] (Adult Med) [address] [place] [phone] 11/05/2021 10:57:13 11/06/2021 11:48:52 Venereal disease screening [id number] Z11.3 Pt presents today for general screening of STI and STDs. Pt denies dysuria, abdominal pain, fevers/chi lls, vaginal pain, vaginal discharge, vaginal pruritus. Given pt request, assess for CT, NG, trichomona s, HIV, Syphilis, and hepatitis. [id number] [facility] (Adult Med) [address] [place] [address] 02/07/2022 09:21:39 02/11/2022 13:47:26 Irregular periods [id number] N92.6 Hx of regular menses, with a history of tubal ligation. She had a period 10/09/21 and then had no menstrual cycle again until 01/24/2022 . Home preg. test negativeHa s never gone that long without a cycle. Has had recent weight gain but unsure why, states her stress has been minimal and is eating the same as usual. Admits to hair loss and intermitte nt low mood and anhedonia. Denies pelvic pain and cramps.- provided reassuranc e since her menses has returned but will complete some labs to rule out underlying causes- focus on weight and work on changing diet and increasing exercise to minimize weight gain Vaginal discharge 173119 006 N89.8 Admits to new onset clear vaginal discharge that fills up her underware at night while sleeping- nuswab ordered [id number] GEOFFRYE LEMUS DPM [facility] [address] [place] [address] 11/05/2022 14:40:26 11/15/2022 09:37:14 Cellulitis of toe of left foot [id number] L03.032 Left hallux cellulitis was evaluated and it should be noted that antibiotic s were discussed and a close evaluation was performed to assess the need for IV antibiotic s versus oral antibiotic s. Due to the non-ascend ing nature of the cellulitis , oral antibiotic s were chosen. Rx Augmentin 875/125 mg BID for 14 days. Localized edema [id number] 4 R60.0 Ingrowing nail of toe of left foot [id number] 9376759 L60.0 Pain of to e of left foot [id number] 43275 M79.947 [id number] [facility] [address] [place] [address] 08/02/2024 13:41:34 08/02/2024 14:56:56 Ingrowing nail 769735144 L60.0 Onychomyco sis due to dermatophyte 614852589 B35.1 Apply topical antifungal to nails 1 through 10 daily until resolution . Health Concerns Section Related Observation LastModified by Organization Detai ls LastModified Time None Recorded Concern Status LastModified by Organization Details LastModified Time None Recorded Advance Directives Directive N: Payers Encounter Date Sequence Insurance Name Policy Number Policy Holbrook Covered Member ID Holbrook Member ID Guarantor Name 05/24/2021 1 [facility] ON OR AFTER 10/12/20 (MEDICAID REPLACEMENT - HMO) Manisha Kamron [id number] Manisha Kamron 11/05/2021 1 [facility] ON OR AFTER 10/12/20 (MEDICAID REPLACEMENT - HMO) Manisha Kamron [id number] Manisha Kamron 02/07/2022 1 [facility] ON OR AFTER 10/12/20 (MEDICAID REPLACEMENT - HMO) Manisha Kamron [id number] Manisha Kamron 11/05/2022 1 [facility] ON OR AFTER 10/12/20 (MEDICAID REPLACEMENT - HMO) Manisha Kamron [id number] Manisha Kamron 08/02/2024 1 MEDICAID-[place]: [facility] Manisha Kamron [id number] Manisha Kamron Notes Date Note Type Note Provider Name and Address Organization Details Recorded Time 05/24/2021 text/html 31 year old femdot talbert presents today for THOMAS. 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 Denies fever, chills, nausea, vomiting, pelvic pain, vaginal discharge and vaginal lesions. [facility] Attn: [address]ing[address] [place], [address], [facility] 05/24/2021 12:56:59 11/05/2021 text/html Pt presents toda y for annual health examination and STI/STD check. Pt denies specific concerns today. Diet consists of 2 meals per day, and endorses to drink fruit juice regularly. Pt does not exercise. Pt gets 8hrs of sleep per night and wakes up feeling well rested. Pt also endorses that she wants to have a check for STI/STDs. Pt denies burning w/ urination, fevers/chills, abdominal pain, vaginal pain, vaginal itching, or vaginal discharge. Denies fever, chills, nausea, vomiting, headaches, chest pain, SOB, abdominal pain, diarrhea, constipation, or dysuria. MAX POM[facility] Attn: [address] [place], [address], [facility] 11/05/2021 13:06:22 02/07/2022 text/html 32 year old sam talbert presents today for irregular menstrual cycles. Hx of regular menses, with a history of tubal ligation. She had a period 10/09/21 and then had no menstrual cycle again until 01/24/2022. Took a few tests at home which were negative. Has never gone that long without a cycle. Has had recent weight gain but unsure why, states her stress has been minimal and is eating the same as usual. Admits to hair loss and intermittent low mood and anhedonia but does not feel depressed overall. Denies pelvic pain and cramps. MAX POMPA Attn: [address]ing[address] [facility], [place], [address], [facility] 02/07/2022 16:14:27 11/05/2022 text/html 32 year old sam talbert patient presents to clinic for painful ingrown toenail to Left foot great toe. Patient ambulates to clinic wearing open toe sandals. Patient states that the Left great toe has an ingrown nail that has been bothering her for a few weeks. States she feels the pain in the Left foot great toe for most of the day, especially when ambulating in certain shoe gear, describing the pain as throbbing and painful to touch. Patient also states his Left great toe is swollen. She states she had gone to the ER two weeks and they gave her an antibiotic that she finished. Denies any nausea, fever, vomiting, chills or shortness of breath. Denies any recent trauma to the foot or ankle. Denies any other pedal complaints. GEOFFREY LEMUS, DPM [address], [place], [address], [place] [facility] 11/06/2022 07:17:26 08/02/2024 text/html Patient presents to clinic for painful ingrowing nail to her right big toe. Also has thickened nails on both feet request medication for this. Carlos Alberto Holland DPM [address], [place], [address], [facility] 08/02/2024 15:44:43 OBGyn Episode Ob Episode Information Episode Created Date Number of Fetuses Patient Bloodtype Patient rh Status Prepregnancy Weight lbs Domestic Partner Domestic Partner Phone Father Name Limited Radiology Technician Status 03/18/20 18 1 O Positive 198 CLOSED Fetus Data First Name Last Name Admitted to NICU Weight (g) Sex Living Outcome Pediatric Complications Fetus ID Race Codes Race Delivery Type Essence Triplett isidoroa Ramir ez false 2976.69 75 F true Full Term Peds, Dr.David Mckenzie, [facility] [address] 2106-3 White Problems Problem Notes Problem Name Start Date End Date Resolution Snomed Code Not e Genital herpes simplex 05/01/2018 461294 06 Group B Streptococcus carrier 05/01/2018 [id number] Bacterial vaginosis 03/25/2018 544745325 Urinary tract infectious disease 03/24/2018 23810770 Chlamydial cervicitis 03/25/2018 1666938 06 Anemia of 07/20/2018 75541048 Female sterilization 09/02/2018 22597396 Abnormal finding on screening of mother 05/06/2018 133966094 Glucose tolerance test outside reference range 07/20/2018 590457107 IMPA IRED 1 HR GTT Jin Calculation Initial Jin Date Initial Exam Date Initial Exam Provider Initial Ultrasound Date Last Menstrual Period Date Ultra Sound Weeks Gestation 09/05/2018 03/18/2018 jayant 03/30/2018 11/20/2017 17 Eighteen To Twenty Week Jin Update Ultra Sound Date Fundal Height At Umbil Quickening Date Ultra Sound Latest Weeks Gestation Final Jin Confirmed By Final Jin Confirmed Date Final Jin Date Ultra Sound Latest Days Gestation 03/30/20 18 17 mwasserman 09/02/201809/05/ 019 2 Pre-gabbi Flowsheet Flowsheet Date 03/18/2018 Schafer Score Blood Edema Fundus Height Fundus Units Glucose Ketones Leukocytes Nitrite Labor Signs Protein Cervic Dilation Cervic Effacement Cervic Station neg none 15 cm none trace none neg 0cm 0% -4 Type Weight in lbs Pre/Post Dialysis Refused Weight 198.925982194701 BP Diastolic BP Location Tested BP Systolic BP Type 71 108 sitting Fetus Heart Rate Present A 135 Present Fetus Movement A No Comments Flowsheet Date 05/01/2018 Schafer Score Blood Edema Fundus Height Fundus Units Glucose Ketones Leukocytes Nitrite Labor Signs Protein Cervic Dilation Cervic Effacement Cervic Station 2+ 23 cm none trace none trace 0cm 0% -4 Type Weight in lbs Pre/Post Dialysis Refused Weight 197.446649788404 BP Diastolic BP Location Tested BP Systolic BP Type 68 110 sitting Fetus Heart Rate Present A 139 Present Fetus Movement A Yes Comments PTL, PREECLAMPSIA PRECAUTION S AND KICK COUNTS DISCUSSED. Flowsheet Date 06/11/2018 Schafer Score Blood Edema Fundus Height Fundus Units Glucose Ketones Leukocytes Nitrite Labor Signs Protein Cervic Dilation Cervic Effacement Cervic Station none 30 cm none Type Weight in lbs Pre/Post Dialysis Refused Weight 196.349879908075 BP Diastolic BP Location Tested BP Systolic BP Type 72 116 sitting Fetus Heart Rate Present A 145 Present Fetus Movement A Decreased Comments PTL, PREECLAMPSIA PRECAUTION S AND KICK COUNTS DISCUSSED. Flowsheet Date 09/02/2018 Schafer Score Blood Edema Fundus Height Fundus Units Glucose Ketones Leukocytes Nitrite Labor Signs Protein Cervic Dilation Cervic Effacement Cervic Station trace 39 cm Uterine Contract ions 1cm 80% -1 Type Weight in lbs Pre/Post Dialysis Refused Weight 198.708967017686 BP Diastolic BP Location Tested BP Systolic BP Type 70 104 sitting Fetus Heart Rate Present A 120 Present Fetus Movement A Yes Comments deliver now, with tubal sterilization while in house Flowsheet Date 09/17/2018 Schafer Score Blood Edema Fundus Height Fundus Units Glucose Ketones Leukocytes Nitrite Labor Signs Protein Cervic Dilation Cervic Effacement Cervic Station Type Weight in lbs Pre/Post Dialysis Refused Weight 179.188247218065 BP Diastolic BP Location Tested BP Systolic BP Type 70 L arm 100 sitting Fetus Heart Rate Present Fetus Movement Comments Flowsheet Date 10/14/2018 Schafer Score Blood Edema Fundus Height Fundus Units Glucose Ketones Leukocytes Nitrite Labor Signs Protein Cervic Dilation Cervic Effacement Cervic Station Type Weight in lbs Pre/Post Dialysis Refused BP Diastolic BP Location Tested BP Systolic BP Type Fetus Heart Rate Present Fetus Movement Comments Flowsheet Date 11/03/2018 Schafer Score Blood Edema Fundus Height Fundus Units Glucose Ketones Leukocytes Nitrite Labor Signs Protein Cervic Dilation Cervic Effacement Cervic Station Type Weight in lbs Pre/Post Dialysis Refused Weight 186.117938593133 BP Diastolic BP Location Tested BP Systolic BP Type Fetus Heart Rate Present Fetus Movement Comments Menstrual History Last Menstrual Date Menses Monthly On Bcp Conception Prior Menses Frequency Hcg Plus Date Menarche Onset Age 0811/20/2017 true 28 13 Genetic Screening And Infection History Question Response Note Patient's Age Will Be 35 Years Or Older At Estim ated Date of Delivery false Thalassemia (Khmer, Kazakh, Mediterranean, Or Background): MCV < 80 false Neural Tube Defect (Meningomyelocele, Spina Bifi da, Or Anencephaly) false Congenital Heart Defect false Down Syndrome false Blas-Sachs (eg, Sikhism, Cajun, Somali-[place]) f alse John Disease false Sickle Cell Disease Or Trait () false Hemophilia Or Other Blood Disorders false Muscular Dystrophy false Cystic Fibrosis false Tolland's Chorea false Mental Retardation/Autism false If Yes, Was Person Tested For Fragile X? false Other Inherited Genetic Or Chromosomal Disorder false Maternal Metabolic Disorder (eg, Type 1 Diabetes , PKU) false Patient Or Baby's Father Had A Child With Defects Not Listed Above false Recurrent Loss, Or A Stillbirth false Medications (including Suppl ements, Vitamins, Herbs, OTC Drugs), Illicit/Recreational Drugs, Alcohol false If Yes, Agent(s) And Strength/Dosage false Any Other Genetic History false Live With Someone With TB Or Exposed To TB false Patient Or Partner Has History Of Genital Herpes false Rash Or Viral Illness Since Last Menstrual Perio d false History Of STD, Gonorrhea, Chlamydia, HPV, Syphi lis false Other Infection History false History of HIV false History of Hepatitis false Prior GBS-infected child false Plans and Education First Trimester Discussed Date Discussion Item Discussion Note Discuss ed By 03/18/2018 Anticipated course of care jayant 03/18/2018 Alcohol jayant 03/18/2018 Intimate partner violence [facility] 03/18/2018 Environmental/work hazards s shani 03/18/2018 Screening for aneuploidy [facility] 03/18/2018 Nutrition counseling ; special diet; dietary precautions (mercury, listeriosis) [facility] 03/18/2018 [facility] 03/18/2018 HIV and other routine tests [facility] 03/18/2018 Risk factors identif ied by history [facility] 03/18/2018 Weight gain counseling [facility] 03/18/2018 Exercise [facility] 03/18/2018 Teratogens [facility] 03/18/2018 Use of any medicatio ns (including supplements, vitamins, herbs, or OTC drugs) [facility] 03/18/2018 [facility] 03/18/2018 Sexual activity [facility] 03/18/2018 Tobacco/smoking cess ation counseling (ask, advise, assess, assist, and arrange) [facility] 03/18/2018 Illicit/recreational drugs s [facility] 03/18/2018 Dental care [facility] 03/18/2018 Travel [facility] 03/18/2018 Seat belt use [facility] 03/18/2018 Indications for ultrasonography [facility] 03/18/2018 Avoidance of saunas or hot tubs [facility] 03/18/2018 Toxoplasmosis precautions (cats/raw meat) [facility] Second Trimester Discussed Date Discussion Item Discussion Note Discuss ed By 05/01/2018 Selecting a care provider [facility] 05/01/[address]ning/tubal sterilization [facility] 05/01/2018 Depression screening (when indicated) [facility] 05/01/2018 Abnormal lab values [facility] 05/01/2018 Signs and symptoms of labor [facility] 05/01/2018 [facility] violence [facility] 05/01/2018 Tobacco/smoking cess ation counseling (ask, advise, assess, assist, and arrange) [facility] Third Trimester Discussed Date Discussion Item Discussion Note Discuss ed By 06/11/[address] [facility] 06/11/2018 Anesthesia plans [facility] 06/11/2018 education (n ewborn screening, jaundice, SIDS/safe sleeping position, car seat) [facility] 06/11/2018 Circumcision [facility] 06/11/2018 [facility] 06/11/2018 movement monitoring sv [facility] 06/11/2018 [facility] 06/11/2018 Labor signs [facility] 06/11/2018 depression [facility] 06/11/2018 Family medical leave or disability forms [facility] 06/11/2018 Tobacco/smoking cess ation counseling (ask, advise, assess, assist, and arrange) [facility] 06/11/2018 [facility] of [facility] Information Delivery Date Delivery Type Labor Anesthesia Weeks Gestation Incision Type Labor Labor Length Hrs Delivered By Post Complications Tubal Sterilization Discharge Date Comments 9 Induce d Regional-Sp inal 39.4 Low Transvers e lyn None true 09/05/2018 pt states received 4 units blood Discharge Information Feeding Method Contraceptive Method Maternal HG B and HCT Levels Bottle BTL Ob Episode Information Episode Created Date Number of Fetuses Patient Bloodtype Patient rh Status Prepregnancy Weight lbs Domestic Partner Domestic Partner Phone Father Name Limited Radiology Technician Status 03/18/20 18 1 CLOSED Fetus Data First Name Last Name Admitted to NICU Weight (g) Sex Living Outcome Pediatric Complications Fetus ID Race Codes Race Delivery Type 3345.24 1 F Full Term [id number] Standard Vaginal Delivery Jin Calculation Initial Jin Date Initial Exam Date Initial Exam Provider Initial Ultrasound Date Last Menstrual Period Date Ultra Sound Weeks Gestation 0 Eighteen To Twenty Week Jin Update Ultra Sound Date Fundal Height At Umbil Quickening Date Ultra Sound Latest Weeks Gestation Final Jin Confirmed By Final Jin Confirmed Date Final Jin Date Ultra Sound Latest Days Gestation 0 0 Menstrual History Last Menstrual Date Menses Monthly On Bcp Conception Prior Menses Frequency Hcg Plus Date Menarche Onset Age Delivery Information Delivery Date Delivery Type Labor Anesthesia Weeks Gestation Incision Type Labor Labor Length Hrs Delivered By Post Complications Tubal Sterilization Discharge Date Comments 8 Discharge Information Feeding Method Contraceptive Method Maternal HG B and HCT Levels Ob Episode Information Episode Created Date Number of Fetuses Patient Bloodtype Patient rh Status Prepregnancy Weight lbs Domestic Partner Domestic Partner Phone Father Name Limited Radiology Technician Status 06/11/19 19 1 CLOSED Fetus Data First Name Last Name Admitted to NICU Weight (g) Sex Living Outcome Pediatric Complications Fetus ID Race Codes Race Delivery Type 3259.96 5704 M Full Term [id number] Standard Vaginal Delivery Jin Calculation Initial Jin Date Initial Exam Date Initial Exam Provider Initial Ultrasound Date Last Menstrual Period Date Ultra Sound Weeks Gestation 0 Eighteen To Twenty Week Jin Update Ultra Sound Date Fundal Height At Umbil Quickening Date Ultra Sound Latest Weeks Gestation Final Jin Confirmed By Final Jin Confirmed Date Final Jin Date Ultra Sound Latest Days Gestation 0 0 Menstrual History Last Menstrual Date Menses Monthly On Bcp Conception Prior Menses Frequency Hcg Plus Date Menarche Onset Age Delivery Information Delivery Date Delivery Type Labor Anesthesia Weeks Gestation Incision Type Labor Labor Length Hrs Delivered By Post Complications Tubal Sterilization Discharge Date Comments 6 40 false Discharge Information Feeding Method Contraceptive Method Maternal HG B and HCT Levels Ob Episode Information Episode Created Date Number of Fetuses Patient Bloodtype Patient rh Status Prepregnancy Weight lbs Domestic Partner Domestic Partner Phone Father Name Limited Radiology Technician Status 03/18/20 18 1 CLOSED Fetus Data First Name Last Name Admitted to NICU Weight (g) Sex Living Outcome Pediatric Complications Fetus ID Race Codes Race Delivery Type 3175.14 4 F Full Term [address] Standard Vaginal Delivery Jin Calculation Initial Jin Date Initial Exam Date Initial Exam Provider Initial Ultrasound Date Last Menstrual Period Date Ultra Sound Weeks Gestation 0 Eighteen To Twenty Week Jin Update Ultra Sound Date Fundal Height At Umbil Quickening Date Ultra Sound Latest Weeks Gestation Final Jin Confirmed By Final Jin Confirmed Date Final Jin Date Ultra Sound Latest Days Gestation 0 0 Menstrual History Last Menstrual Date Menses Monthly On Bcp Conception Prior Menses Frequency Hcg Plus Date Menarche Onset Age Delivery Information Delivery Date Delivery Type Labor Anesthesia Weeks Gestation Incision Type Labor Labor Length Hrs Delivered By Post Complications Tubal Sterilization Discharge Date Comments 1 Discharge Information Feeding Method Contraceptive Method Maternal HG B and HCT Levels
[2024-09-22 22:20] VITALS: BP 135/79; PULSE 94; RESP 20; TEMP 36.6; O2SAT 100
--- NOTE | 2024-09-22 22:21 | ECG_ITS ---
Test Date: 2024-09-22 22:33:24 Measurements Intervals [place] Rate: 80 P: 25 OH: 129 QRS: 11 QRSD: 89 T: 11 QT: 393 QTc: 455 Interpretive Statements SINUS RHYTHM LOW QRS VOLTAGE IN PRECORDIAL LEADS BORDERLINE ECG No previous ECG available for comparison Electronically Signed On 09-23-2024 06:00:31 CDT by Cyrus Baires D.O.
[2024-09-22 23:12] VITALS: O2SAT 98
[2024-09-22 23:19] LABS: Basophils Percent Auto 0.2 % (0.2-1.2); Eosinophils Absolute Auto 0.1 K/mm3 (0-0.3); Eosinophils Percent Auto 1.4 % (0-4.4); Hematocrit 35.4 % (37.0-47.0); Hemoglobin 11.8 g/dL (12.0-15.0); Immature Granulocyte Absolute 0.02 K/mm3 (0.00-0.031); Immature Granulocyte Percent A 0.3 % (0-0.5); Mean Corpuscular HGB Conc 33.3 g/dl (32-36); Mean Corpuscular Hemoglobin 30.4 pg (26-34); Mean Corpuscular Volume 91.2 fl (80-100); Mean Platelet Volume 11.5 fl (7.4-10.4); Monocytes Absolute Auto 0.5 K/mm3 (0.1-0.6); Neutrophils Absolute Auto 4.3 K/mm3 (1.3-6.7); Neutrophils Percent Auto 73.1 % (45.5-73.1); Platelet Count Result 115 k/mm3 (150-375); Red Blood Count 3.88 M/mm3 (4.2-5.4); Red Cell Distribution Width 12.8 % (11.5-14.5); White Blood Count 5.9 K/mm3 (4.5-10.0)
[2024-09-22 23:23] VITALS: O2SAT 99
[2024-09-22 23:27] LABS: Alanine Aminotransferase 20 U/L (6-35); Albumin Level 3.8 g/dL (3.5-5.1); Alkaline Phosphatase 89 U/L (38-126); Anion Gap 6 mmol/L (4-12); Aspartate Amino Transferase 25 U/L (14-36); Bilirubin,Total 0.3 mg/dL (0.2-1.3); Blood Urea Nitrogen 14 mg/dL (7-17); Calcium 8.6 mg/dL (8.4-10.2); Carbon Dioxide 26 mmol/L (22-30); Chloride 108 mmol/L (98-107); Estimated CRCL calculation 98 ml/min; Estimated Glomerular Filt Rate > 60; Glucose 112 mg/dL (65-110); Lipase 61 U/L (23-300); Potassium 3.7 mmol/L (3.4-5.0); Sodium 140 mmol/L (137-145); Total Protein 6.5 g/dL (6.3-8.2)
[2024-09-22 23:30] VITALS: O2SAT 100
--- OUTSIDE RECORDS SUMMARY | 2024-09-22 23:37 | XMS_ITS | Clinical Summary ---
Author Organization [facility] Address [address] [place] [address] Care Team Providers Care Anesthesiology Tech Name Role Phone Michel Neff MD Primary Care Provider [phone] Allergies No known active allergies Medications Invega [...] Description 09/07/2024 12:25 PM CDT Anesthesia Event [address] [address] Cuauhtemoc Gaona MD 09/07/2024 12:00 PM CDT - 09/07/2024 12:30 PM CDT Surgery [address] [address] Raul Askew MD ESOPHAGOGASTRODUODENOSCOPY BIOPSY 09/07/2024 11:00 AM CDT - 09/07/2024 1:10 PM CDT Hospital Encounter [address] [address] Raul Askew MD Heartburn Discharge Disposition: Discharge to home or self care 09/07/2024 10:05 AM CDT Lab [address] Morbid obesity due to excess calories (HCC) 09/07/2024 9:40 AM CDT Office Visit [address] [place] [address] Raul Askew MD Morbid obesity due to excess calories (HCC) (Primary Dx) 08/17/2024 12:00 PM CDT - 08/17/2024 12:30 PM CDT Surgery [address] [address] Raul Askew MD Not Performed 08/17/2024 12:00 PM CDT Anesthesia Event [address] [address] Berhane Gautam DO Zirkelbach, Cecilia A., CRNA 08/17/2024 10:55 AM CDT - 08/17/2024 11:05 AM CDT Hospital Encounter [address] [address] Raul Askew MD Discharge Disposition: Discharge to home or self care 08/05/2024 11:00 AM CDT - 08/05/2024 11:59 PM CDT Hospital Encounter [facility] [address] [place] [address] Sanchez, Nubia Roberts RD Discharge Disposition: Discharge to home or self care 08/05/2024 10:35 AM CDT Office Visit [address] [place] [address] Kylee Monet NP Morbid obesity due to excess calories (HCC) (Primary Dx) 08/05/2024 Orders Only [address] [address] Raul Askew MD Morbid obesity due to excess calories (HCC) (Primary Dx) 07/12/2024 10:52 AM CDT - 07/12/2024 11:59 PM CDT Hospital Encounter [facility] [address] [place] [address] Sanchez, Nubia Roberts RD Discharge Disposition: Discharge to home or self care 07/08/2024 8:40 AM CDT Office Visit [address] [place] [address] Raul Askew MD Morbid obesity [...] on file 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 Room: [facility] ENDOSCOPY ROOM 2 Note Status: Finalized Patient [...] passed under direct vision. The Endoscope [id number] was introduced through the mouth, and advanced [...] 11:57 AM Procedure Code(s): --- Professional --- 13939, Esophagogastroduodenoscopy, flexible, transoral; with biopsy, single or multiple --- Technical --- 07108, Esophagogastroduodenoscopy, flexible, transoral; with biopsy, single or multiple Diagnosis Code(s): --- Professional --- K31.89, Other diseases of stomach and duodenum K22.89, Other specified disease of esophagus --- Technical --- K31.89, Other diseases of stomach and duodenum K22.89, Other specified disease of esophagus CPT copyright 2020 [employer]. All rights reserved. The codes documented in this report are preliminary and upon travel rn reviewmay be revised to meet current compliance requirements. Recognized by the [employer] for promoting quality in endoscopy Raul Askew MD ENDOSCOPY PROCED URES Final Result * Thyroid Function [place] (09/07/2024 10:11 AM CDT) TSH 0.35 0.30 - 4.20 mcIUnit/mL Blood 09/07/2024 10:1 1 AM CDT 09/07/2024 1:10 PM CDT Raul Askew MD LAB BLOOD ORDERA BLES Final Result [facility]) 1 [facility] Department [place] [employer] [place] [address] * Iron profile w/ IBC (09/07/2024 10:11 AM CDT) Iron 79 35 - 145 mcg/dL TIBC 312 250 - 400 mcg/dL [facility] Transferrin saturation 25 20 - 50 % [facility] Blood 09/07/2024 10:1 1 AM CDT 09/07/2024 1:10 PM CDT Raul Askew MD LAB BLOOD ORDERA BLES Final Result Performing Organization Address [facility] Co de Phone Number [facility] ([place]) 1 [facility] [employer] [place] [address] * Vitamin A (09/07/2024 10:11 AM CDT) Vitamin A 35.8 32.5 - 78.0 mcg/dL [facility] ref Lab Comment: ADDITIONAL INFORMATION This test was developed and its performance characteristics determined by [facility] in a manner consistent with CLIA requirements. This test has not been cleared or approved by the U.S. Food and Drug Administration. Test Performed by: [facility] [place] [address] Rehabilitation Consultant: Bharathi Luna Ph.D.; CLIA# [id number] Blood 09/07/2024 10:1 1 AM CDT 09/07/2024 1:10 PM CDT Raul Askew MD LAB BLOOD ORDERA BLES Final Result Performing Organization Address [facility] Co de Phone Number MICHELLE MCDUFFIE ([place]) 1 [facility] [place] [address] [facility] ref Lab * (ABNORMAL) Vitamin D 25 hydroxy (09/07/2024 10:11 AM CDT) Vitamin D 25-OH 14(L) 30 - 80 ng/mL Blood 09/07/2024 10:1 1 AM CDT 09/07/2024 1:10 PM CDT Raul Askew MD LAB BLOOD ORDERA BLES Final Result [facility] ([place]) 1 [facility] [employer] [place] [address] * Vitamin B1 (09/07/2024 10:11 AM CDT) [facility] Thiamine (Vit B1) 100 70 - 180 nmol/L [facility] Lab Comment: ADDITIONAL INFORMATION This test was developed and its performance characteristics determined by [facility] in a manner consistent with CLIA requirements. This test has not been cleared or approved by the U.S. Food and Drug Administration. Test Performed by: [address] [address] Rehabilitation Consultant: Bharathi Luna Ph.D.; CLIA# [id number] Blood 09/07/2024 10:1 1 AM CDT 09/07/2024 1:00 PM CDT us Raul Askew MD LAB BLOOD ORDERA BLES Final Result Performing Organization Address City/[facility]/ZIP Co de Phone Number MICHELLE CHAN) 1 [facility] [employer] [place] [address] [facility] Lab * Hemoglobin A1c (09/07/2024 10:11 AM CDT) [facility] Hgb A1C 4.4 4.0 - 5.6 % Estimated Average Glucose 80 mg/dL [facility] ([place]) Comment: The ADA recommends reporting an estimated Average Glucose (eAG) with all Hemoglobin A1c results using the equation derived from a study of 507 normal and diabetic adults. Minority populations were underrepresented and children were not included. (Diabetes Care 31:2476-5264, 2008). The eAG is not equivalent to a fasting glucose. Blood 09/07/2024 10:1 1 AM CDT 09/07/2024 1:10 PM CDT us Raul Askew MD LAB BLOOD ORDERA BLES Final Result [facility] ([place]) 1 [facility] [employer] [place] [address] * Glucose, fasting (09/07/2024 10:11 AM CDT) Glucose, fasting 78 70 - 99 mg/dL Blood 09/07/2024 10:1 1 AM CDT 09/07/2024 1:10 PM CDT us Raul Askew MD LAB BLOOD ORDERA BLES Final Result Performing Organization Address [facility] Co de Phone Number [facility] ([place]) 1 [facility] [employer] [place] [address] * Folate (09/07/2024 10:11 AM CDT) Folic acid 10.3 >=5.0 ng/mL Comment:Slightly Hemolyzed S pecimen. Results may be affected. Blood 09/07/2024 10:1 1 AM CDT 09/07/2024 1:10 PM CDT us Raul Askew MD LAB BLOOD ORDERA BLES Final Result Performing Organization Address City/[facility]/ZIP Co de Phone Number [facility] ([place]) 1 [facility] [place] [employer] [place] [address] * Ferritin (09/07/2024 10:11 AM CDT) Ferritin 90 15 - 150 ng/mL Blood 09/07/2024 10:1 1 AM CDT 09/07/2024 1:10 PM CDT Raul Askew MD LAB BLOOD ORDERA BLES Final Result [facility] ([place]) 1 [facility] [employer] [place] [address] * Vitamin B12 (09/07/2024 10:11 AM CDT) Vitamin B12 534 230 - 1,250 pg/mL Blood 09/07/2024 10:1 1 AM CDT 09/07/2024 1:10 PM CDT us Raul Askew MD LAB BLOOD ORDERA BLES Final Result [facility] ([place]) 1 [facility] Department [place] [address] * Lipid panel (09/07/2024 10:11 AM CDT) [...] revised on 2023. Non-HDL Cholesterol 94 mg/dL [facility] ([place]) Comment: Interpretive Data Ages < [...] on 2017. Chol/HDL ratio 3 CERROSA R [facility] ([place]) Blood 09/07/2024 10:1 1 AM CDT 09/07/2024 1:10 PM CDT us Raul Askew MD LAB BLOOD ORDERA BLES Final Result MICHELLE [facility] ([place]) [address] [place] [address] [place] [address] * Surgical pathology (09/07/2024 10:01 AM CDT) Tissue (Gastric/Stomach biopsy) 09/07/2024 12:35 PM CDT Tissue specimen (specimen) ([place], Biopsy) 09/07/2024 12:36 PM CDT Narrative PATHOLOGY [facility] ([place]) - 09/10/2024 10:20 AM CDT EPIC results best viewed via link to PDF [facility] Department of Pathology [address] [place] [address] Note to Patients: This report may contain [...] Final Report Patient Name: MANISHA JIMÉNEZ Address: [address] [place] [address] Gender: F : 1990 (Age: 34) Service: Surgery Location: [facility] Hospital #: [id number] Patient Type: [facility] Taken: 09/07/2024 Received: 09/08/2024 Accessioned: 09/08/2024 [...] determined by the Surgical Pathology Department at [facility] as part of an ongoing quality control lab technician program and in compliance with federally [...] characteristics determined by the Surgical Pathology Department [facility]. It has not been cleared or approved by the U. S. Food and Drug Administration. Note for decalcified specimens: This assay has not been validated on decalcified tissues. Results should be interpreted with caution given the possibility of false negativity on decalcified specimens Raul Askew MD LAB PATHOLOGY OR DERABLES Final Result PATHOLOGY [facility] ([place]) [address] [place] [address] from Last 3 Months Insurance [facility] [address] [facility] Advance Directives For more information, please contact: [phone] * Full Code (Latest Code Status on File) Date Activated Date Inactivated Comments 09/07/2024 11:15 AM 09/07/2024 5:15 PM * Full Code Date Activated Date Inactivated Comments 09/07/2024 11:15 AM 09/07/2024 11:15 AM Care Teams Anesthesiology Tech Relationship Specialty Start Date End Date Michel Neff MD [address] [facility] [address] PCP - General Internal Medicine 10/09/23
--- OUTSIDE RECORDS SUMMARY | 2024-09-22 23:37 | XMS_ITS | Patient Health Record ---
Author Organization [facility] Address [address] [place] [address] Care Team Providers Care Sheet Metal Welder Name Role Phone Michel Neff Primary Care Provider Freddie Gomes Unavailable [phone] [facility] Unav ailable Unavailable Alessandra Maharaj Unavailable [phone] Jacy Wen Unavailable [phone] Allergies No Known Allergies Results Component Value Reference Range Notes Test, Urine Reviewed date:03/19/2024 03:41:54 PM Interpretation: Performing Lab: Notes/Report: Test, Urine neg Negative - Negative Reason For Referral Reason prefers [facility] Diagnosis 1 Morbid (severe) obes ity due to excess calories (E66.01) Referral Organization [facility] Referring Provider First Name Michel Referring Provider Last Name Aishwarya Referring Provider Speciality Internal edicine Referred Provider Specialty Bariatric [facility] General Notes Latesha Vega 02/13 02:28:31 PM > Referral sent to Dr. Askew-Bariatric Surgeon in [place]. Letter sent to patient. Clinical Notes Bariatric Surgeon, Coral Askew, [address] [facility], [address], [facility], [address], ph: [phone], fax: [phone] Referral Priority Routine Reason INGROWN TOENAIL, PRE FERS CAHOKIA Diagnosis 1 Ingrown right greate r toenail (L60.0) Referral Organization [facility] Referring Provider First Name Michel Referring Provider Last Name Aishwarya Referring Provider Speciality Internal M edicine Referred Provider Specialty Podiatry General Notes Monet Beckwith 0 07/13/2024 02:21:06 PM > referral sent to Podiatry. Letter sent Clinical Notes [facility] din[facility] - Podiatry, Iglesia Tadeo DPM, [address] [place] [address], , Referral Priority Urgent Medications Medication SIG [...] 06/11/2024 Active Vitamin D (Ergocalciferol) 1.25 MG (06835 UT) TAKE 1 CAPSULE BY MOUTH EVERY [...] Problem Status W/U Status Risk Notes Problem 93196645539708 Morbid (severe) obesity due to excess calories (E66.01) Active confirmed Problem Secondary amenorrhea (193557658) Secondary amenorrhea (N91.1) Active confirmed Problem Vitamin D deficiency (85551206) Vitamin D insufficiency (E55.9) Active confirmed Problem Anxiety (97345161) Anxiety (F41.9) Active confi rmed Problem Schizophrenia (64174597) Schizophrenia (F20.9) Active confirmed Problem Menstrual disorder (990852208) Irregular menses (N92.6) Active confirmed Problem Overweight (746050734) Over weight (E66.3) Active confirmed Problem 34710852 Depression, unspecified depression type (F32.9) 03/24/20 20 Active confirmed Problem 260742449 Tension headache (G44.209) Active confirmed Problem 062589492527345 Obesity (BMI 30.0-34.9) (E66.9) Active confirmed Problem 82978065 Schizophrenia, unspecified type (F20.9) Active confirmed Problem 98902590 Migraine without status migrainosus, not intractable, unspecified migraine type (G43.909) Active confirmed Problem Tobacco use (634982988) Tobacco use disorder (F17.200) Active confirmed Problem Pain in female genitalia on intercourse (51792727) Dyspareunia in female (N94.10) Active confirmed Problem Obesity (728991364) Obesity, unspecified classification, unspecified obesity type, unspecified whether serious comorbidity present (E66.9) Active confirmed Problem 5923920538860401 Patellofemoral syndrome, left (M22.2X2) Active confirmed Problem Constipation by delayed colonic transit (18573567) Constipation by delayed colonic transit (K59.01) Active confirmed Problem 941683861 Body mass index [BMI] 40.0-44.9, adult (Z68.41) Active confirmed Vital Signs Heart Rate 90 /min 09/15/2024 Temperature 97.8 degrees Fahrenheit 08/17/2024 Shou lder pain Respiratory Rate 16 /min 09/14/2024 Oximetry 98 % 09/15/2024 Blood pressure diastolic 80 mm Hg 09/15/2024 Height 61 in 09/15/2024 Blood pressure systolic 126 mm Hg 09/15/2024 Weight 218.4 lbs 09/15/2024 BMI 41.26 kg/m2 09/15/2024 Encounters Encounter Location Date Provider Diagnosis [address] [address] 10/21/2023 Michel Neff Patellofemoral arthralgia of right knee M25.561 ; Secondary amenorrhea N91.1 ; Migraine without status migrainosus, not intractable, unspecified migraine type G43.909 ; Morbid (severe) obesity due to excess calories E66.01 ; Nutritional counseling Z71.3 and Schizophrenia F20.[address] [address] 12/09/2023 Arif Habib Schizophrenia F20.[address] [address] 12/22/2023 Michel Neff Morbid (severe) obesity due to excess calories E66.01 ; Migraine without status migrainosus, not intractable, unspecified migraine type G43.909 ; Patellofemoral arthralgia of right knee M25.561 and Tinea corporis B35.[address] [address] 02/10/2024 Michel Neff Patellofemoral arthralgia of right knee M25.561 ; Tension headache G44.209 ; Tinea corporis B35.4 and Morbid (severe) obesity due to excess calories E66.[address] [address] 02/17/2024 Arif Habib Schizophrenia F20.9 and Nutritional counseling Z71.[address] [address] 03/08/2024 Michel Neff Nutritional counseling Z71.3 and Morbid (severe) obesity due to excess calories E66.[address] [place] [address] 03/16/2024 Arif Habib Nutritional counseling Z71.3 and Schizophrenia F20.9 [place] [address] [place] [address] 03/19/2024 Michel Neff Epigastric pain R10.13 ; Dyspareunia in female N94.10 ; Irregular menses N92.6 ; Tension headache G44.209 ; Nutritional counseling Z71.3 and Morbid (severe) obesity due to excess calories E66.[address] [address] 03/25/2024 Michel Neff Tension headache G44.209 and Epigastric pain R10.[address] [address] 04/20/2024 Arif Habib Nutritional counseling Z71.3 and Schizophrenia F20.[address] [address] 04/26/2024 Michel Neff Dorsalgia of multipl e sites in spine M54.9 and Nutritional counseling Z71.3 [address] [place] [place] [address] 06/11/2024 Michel Neff Migraine without status migrainosus, not intractable, unspecified migraine type G43.909 ; Obesity, unspecified classification, unspecified obesity type, unspecified whether serious comorbidity present E66.9 and Dyspareunia in female N94.[address] [address] 06/15/2024 Arif Habib Nutritional counseling Z71.3 and Schizophrenia F20.[address] [place] [address] 07/08/2024 Michel Neff Ingrown right greate r toenail L60.0 ; Cellulitis L03.90 ; Morbid (severe) obesity due to excess calories E66.01 and Nutritional counseling Z71.[address] [address] 07/19/2024 Michel Neff Over weight E66.3 ; Patellofemoral syndrome, left M22.2X2 and Schizophrenia F20.[address] [address] 08/16/2024 Arif Habib [address] [address] 08/17/2024 Arif Habib Schizophrenia F20.[address] [address] 09/14/2024 Arif Habib Nutritional counseling Z71.3 and Schizophrenia F20.[address] [address] 09/15/2024 Michel Linkner Over weight E66.3 ; Hair loss L65.9 ; Dorsalgia of multiple sites in spine M54.9 ; Migraine without status migrainosus, not intractable, unspecified migraine type G43.909 and Patellofemoral syndrome, left M22.2X2 [address] [address] 10/17/2023 Jacy Wen [address] [address] 10/23/2023 Alessandra Maharaj [address] [address] 11/07/2023 Arif Habib [facility] [address] [place] [address] 12/31/2023 Michel Neff [facility] [address] [place] [address] 01/22/2024 Jacy Wen [place] [address] [address] 04/20/2024 Freddie Mirandanancy [address] [address] 07/08/2024 Michelsherri Linkner [address] [address] 08/05/2024 Michel Neff Morbid (severe) obesity due [...] N91.1) DISCUSSED TRIAL OF PROGESTERONE CHALLENGE AND FRAMEWORK DEVELOPER REFERRAL IF UNSUCCESSFUL. 12/22/2023 Morbid (severe) obesity [...] , 10/01/2024 01:00:00 PM, [address], [place], [address], Provider Name:Freddie Mireya, 04:00:00 PM, [address] [place], [address], Insurance Providers Payer Name Payer Address Payer Phone Subscriber Number Group Number Insured Name Patient Relationship to Insured Coverage Start Date Coverage End Date [facility] Att Claims Department [address] [place] [address] [phone] [id number] Manisha Lundy Self - patient is the insured 5 5 [facility] [address] [place] [address] [id number] Manisha Lundy Self - patient is the insured 4 5 MEDICAID [address] [place] [address] [id number] Manisha Lundy Self - patient is the insured 4 5 [facility] [address] [place] [address] [id number] Manisha Lundy Self - patient is the insured 5 [employer] Claims Department [address] [place] [address] [phone] [id number] Manisha Lundy Self - patient is the insured 2 4 [facility] Attn Claims Department [address] [place] [address] [id number] Manisha Lundy Self - patient is the insured 5 Medications Administered Medication Instructions Date of Administration Dosage Notes Invega Sustenna 05/23/2020 156 mg Manufact by [employer]. Pt brett wel. Invega Sustenna 06/20/2020 156 mg package winder-[place] Pt tolerated injection well. Pt voiced no [...] mg Pt brett we ll. Manufact by [employer] Invega Sustenna 04/08/2023 156 mg Pt brett we ll. Manufact by [employer]. Invega Sustenna 05/07/2023 156 mg Pt brett we ll. Invega Sustenna 07/01/2023 156 mg Manufact by [employer] Pt brett well. Invega Sustenna 07/30/2023 117 mg Pt brett we ll. [facility] [employer] [facility] 08/26/2023 117 mg Manufact by [employer] Pt brett well. Invega Sustenna 10/21/2023 117 mg Manufact by [employer] Pt brett well. Invega Sustenna 12/09/2023 117 mg Pt brett we ll. Manufact [facility] [employer] [facility] Sust[facility] 02/17/2024 117 mg Manufact by [employer] Pt brett well. Invega Sustenna 03/16/2024 117 mg Pt brett we ll. Invega Sustenna 04/20/2024 117 mg Pt brett we ll. Invega Sustenna 06/15/2024 117 mg Manufact by [employer] Pt brett well. Invega Sustenna 07/19/2024 117 mg Pt brett we ll. Invega Sustenna 08/17/2024 117 mg Pt brett we ll. Invega Sustenna 09/14/2024 117 mg Pt brett we ll. Manufact by [employer] [facility] (General) History Surgical History Surgery Date(Month/Year) 2019 tubal ligation 2019 Hospitalization History Reason Date(Month/Year) Urgent care for toothache Nov 2023 2019
--- OUTSIDE RECORDS SUMMARY | 2024-09-22 23:37 | XMS_ITS | Referral Summary ---
Author Organization [facility] Address [address] [place] [address] Care Team Providers Care Drawer Fitter Name Role Phone Michel Neff MD Primary Care Provider [phone] Encounters Date Type Department Care Team Description 09/07/2024 10:05 AM CDT Lab [address] Morbid obesity due to excess calories (HCC) 09/07/2024 12:25 PM CDT Anesthesia Event [address] [address] Cuauhtemoc Gaona MD 09/07/2024 9:40 AM CDT Office Visit [address] [place] [phone] Raul Askew MD Morbid obesity due to excess calories (HCC) (Primary Dx) 09/07/2024 12:00 PM CDT - 09/07/2024 12:30 PM CDT Surgery [address] [address] Raul Asekw MD ESOPHAGOGASTRODUODENOSCOPY BIOPSY 09/07/2024 11:00 AM CDT - 09/07/2024 1:10 PM CDT Hospital Encounter [address] [address] Raul Askew MD Heartburn Discharge Disposition: Discharge to home or self care 08/17/2024 12:00 PM CDT - 08/17/2024 12:30 PM CDT Surgery [address] [address] Raul Askew MD Not Performed 08/17/2024 12:00 PM CDT Anesthesia Event [facility] [address] [place] [address] Berhane Gautam DO Zirkelbach, Cecilia A., CRNA 08/17/2024 10:55 AM CDT - 08/17/2024 11:05 AM CDT Hospital Encounter [facility] 1 [place] [address] Raul Askew MD Discharge Disposition: Discharge to home or self care 08/05/2024 11:00 AM CDT - 08/05/2024 11:59 PM CDT Hospital Encounter [facility] [address] [address] Sanchez, Nubia Roberts RD Discharge Disposition: Discharge to home or self care 08/05/2024 Orders Only [address] [address] Raul Askew MD Morbid obesity due to excess calories (HCC) (Primary Dx) 08/05/2024 10:35 AM CDT Office Visit [facility] [address] [place] [address] [address] [address] Kylee Monet NP Morbid obesity due to excess calories (HCC) (Primary Dx) 07/12/2024 10:52 AM CDT - 07/12/2024 11:59 PM CDT Hospital Encounter [facility] 1 [facility] Room [address] [address] Sanchez, Nubia Roberts RD Discharge Disposition: Discharge to home or self care 07/08/2024 8:40 AM CDT Office Visit [facility] [address] [place] [address] [address] [address] Raul Askew MD Morbid obesity due to [...] on file Legal Sex Female 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 Room: [facility] END[facility]COPY ROOM 2 Note Status: Finalized [...] passed under direct vision. The Endoscope [id number] was introduced through the mouth, and advanced [...] 11:57 AM Procedure Code(s): --- Professional --- 63143, Esophagogastroduodenoscopy, flexible, transoral; with biopsy, single or multiple --- Technical --- 28016, Esophagogastroduodenoscopy, flexible, transoral; with biopsy, single or multiple Diagnosis Code(s): --- Professional --- K31.89, Other diseases of stomach and duodenum K22.89, Other specified disease of esophagus --- Technical --- K31.89, Other diseases of stomach and duodenum K22.89, Other specified disease of esophagus CPT copyright 2020 [employer]. All rights reserved. The codes documented in this report are preliminary and upon certified medical records coder reviewmay be revised to meet current compliance requirements. Recognized by the [employer] for promoting quality in endoscopy Raul Askew MD ENDOSCOPY PROCED URES Final Result * Thyroid Function [place] (09/07/2024 10:11 AM CDT) TSH 0.35 0.30 - 4.20 mcIUnit/mL Blood 09/07/2024 10:1 1 AM CDT 09/07/2024 1:10 PM CDT Raul Askew MD LAB BLOOD ORDERA BLES Final Result Performing Organization Address [facility] Co de Phone Number MICHELLE MCDUFFIE ([place]) 1 [facility] [place] [address] * Iron profile w/ IBC (09/07/2024 10:11 AM CDT) Iron 79 35 - 145 mcg/dL TIBC 312 250 - 400 mcg/dL [facility] ([place]) Transferrin saturation 25 20 - 50 % [facility] Blood 09/07/2024 10:1 1 AM CDT 09/07/2024 1:10 PM CDT Raul Askew MD LAB BLOOD ORDERA BLES Final Result Performing Organization Address City/[facility] Co de Phone Number MICHELLE MCDUFFIE ([place]) 1 [facility] [place] [address] * Vitamin A (09/07/2024 10:11 AM CDT) Vitamin A 35.8 32.5 - 78.0 mcg/dL [facility] Lab Comment: ADDITIONAL INFORMATION This test was developed and its performance characteristics determined by [facility] in a manner consistent with CLIA requirements. This test has not been cleared or approved by the U.S. Food and Drug Administration. Test Performed by: [facility] [place] [address] Frozen Pie Maker: Bharathi Luna Ph.D.; CLIA# [id number] Blood 09/07/2024 10:1 1 AM CDT 09/07/2024 1:10 PM CDT Raul Askew MD LAB BLOOD ORDERA BLES Final Result [facility] ([place]) [address] [place] [address] [place] [address] [place] ref Lab * (ABNORMAL) Vitamin D 25 hydroxy (09/07/2024 10:11 AM CDT) [facility] Vitamin D 25-OH 14(L) 30 - 80 ng/mL Blood 09/07/2024 10:1 1 AM CDT 09/07/2024 1:10 PM CDT Raul Askew MD LAB BLOOD ORDERA BLES Final Result Performing Organization Address City/[facility]/ZIP Co de Phone Number MICHELLE MCDUFFIE ([place]) 1 [facility] [place] [address] * Vitamin B1 (09/07/2024 10:11 AM CDT) Pathologist [facility] Thiamine (Vit B1) 100 70 - 180 nmol/L [place] ref Lab Comment: ADDITIONAL INFORMATION This test was developed and its performance characteristics determined by [facility] in a manner consistent with CLIA requirements. This test has not been cleared or approved by the U.S. Food and Drug Administration. Test Performed by: [facility] - [address] [address] Frozen Pie Maker: Bharathi Luna Ph.D.; CLIA# [id number] Blood 09/07/2024 10:1 1 AM CDT 09/07/2024 1:00 PM CDT Raul Askew MD LAB BLOOD ORDERA BLES Final Result Performing Organization Address [facility] Co de Phone Number MICHELLE MCDUFFIE ([place]) 1 [facility] [employer] [address] [place] ref Lab * Hemoglobin A1c (09/07/2024 [...] and children were not included. (Diabetes Care 31:[id number], 2008). The eAG is not equivalent to a fasting glucose. Blood 09/07/2024 10:1 1 AM CDT 09/07/2024 1:10 PM CDT Raul Askew MD LAB BLOOD ORDERA BLES Final Result Performing Organization Address [facility] Co de Phone Number MICHELLE MCDUFFIE ([place]) 1 [facility] [employer] [place] [address] * Glucose, fasting (09/07/2024 10:11 AM CDT) Glucose, fasting 78 70 - 99 mg/dL Blood 09/07/2024 10:1 1 AM CDT 09/07/2024 1:10 PM CDT Raul Askew MD LAB BLOOD ORDERA BLES Final Result Performing Organization Address City/[facility] Co de Phone Number MICHELLE MCDUFFIE ([place]) 1 [facility] [employer] [place] [address] * Folate (09/07/2024 10:11 AM CDT) Pathologist [facility] Folic acid 10.3 >=5.0 ng/mL Comment:Slightly Hemolyzed S pecimen. Results may be affected. Blood 09/07/2024 10:1 1 AM CDT 09/07/2024 1:10 PM CDT Raul Askew MD LAB BLOOD ORDERA BLES Final Result MICHELLE MCDUFFIE ([place]) 1 [facility] [place] [address] * Ferritin (09/07/2024 10:11 AM CDT) [facility] Ferritin 90 15 - 150 ng/mL Blood 09/07/2024 10:1 1 AM CDT 09/07/2024 1:10 PM CDT Raul Askew MD LAB BLOOD ORDERA BLES Final Result Performing Organization Address City/[facility]/ZIP Co de Phone Number MICHELLE MCDUFFIE ([place]) 1 [facility] [place] [address] * Vitamin B12 (09/07/2024 10:11 AM CDT) [facility] Vitamin B12 534 230 - 1,250 pg/mL Blood 09/07/2024 10:1 1 AM CDT 09/07/2024 1:10 PM CDT Raul Askew MD LAB BLOOD ORDERA BLES Final Result Performing Organization Address City/[facility]/ZIP Co de Phone Number MICHELLE MCDUFFIE ([place]) 1 [facility] [employer] [place] [address] * Lipid panel (09/07/2024 10:11 AM CDT) [facility] Cholesterol 137 30 - 199 mg/dL [...] BLES Final Result MICHELLE MCDUFFIE ([place]) 1 [facility] [place] [address] * Surgical pathology (09/07/2024 10:01 AM CDT) Tissue (Gastric/Stomach biopsy) 09/07/2024 12:35 PM CDT Tissue specimen (specimen) ([place], Biopsy) 09/07/2024 12:36 PM CDT Narrative PATHOLOGY [facility] ([place]) - 09/10/2024 10:20 AM CDT EPIC results best viewed via link to PDF [facility] Department of Pathology [address] [place] [id number] Note to Patients: This report may contain [...] Final Report Patient Name: MANISHA LUNDY Address: [address] [place] [address] Gender: F : 1990 (Age: 34) Service: Surgery Location: [facility] Hospital #: [id number] Patient Type: [facility] Taken: 09/07/2024 Received: 09/08/2024 Accessioned: 09/08/2024 Reported: [...] determined by the Surgical Pathology Department at [facility] as part of an ongoing quality control program and in compliance with federally mandated [...] characteristics determined by the Surgical Pathology Department [facility]. It has not been cleared or approved by the U. S. Food and Drug Administration. Note for decalcified specimens: This assay has not been validated on decalcified tissues. Results should be interpreted with caution given the possibility of false negativity on decalcified specimens Raul Askew MD LAB PATHOLOGY OR DERABLES Final Result Performing Organization Address City/State/[facility] Co de Phone Number PATHOLOGY [facility] ([place]) 1 [place] [address] from Last 3 Months Insurance [employer] [facility] Advance Directives For more information, please contact: [phone] * Full Code (Latest Code Status on File) Date Activated Date Inactivated Comments 09/07/2024 11:15 AM 09/07/2024 5:15 PM * Full Code Date Activated Date Inactivated Comments 09/07/2024 11:15 AM 09/07/2024 11:15 AM Care Teams Drawer Fitter Relationship Specialty Start Date End Date Michel Neff MD [address] [facility] [place] [address] PCP - General Internal Medicine 10/09/23
--- OUTSIDE RECORDS SUMMARY | 2024-09-22 23:37 | XMS_ITS | Clinical Summary ---
Author Organization [facility] Address [address] [place] [address] Care Team Providers Care Warehouse Freight Handler Name Role Phone Unavailable Primary Care Provider Unavailabl e Source Comments [facility],non-owned Affiliates and Associated Physician Practices is amultiple site organization consisting of ambulatory clinics and hospital sitesin [place], [place], [place] and [place]. This disclosure is being madepursuant to the Care Everywhere program and may not contain all information available regarding this patient. Last updated 18.[facility] Active Problems Patient Care Coordination No te Formatting of this note migh t be different from the original. 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 GROWER Gender Identity Not on file Sexual Orientation Not on file Plan of Treatment Health Maintenance Due Date Last Done Comments HIV SCREENING 02/02/2003 HEPATITIS C SCREENING 01/29/2006 DTAP/TDAP/TD VACCINES (1 - Tdap) 02/02/2007 HEPATITIS B VACCINE (1 of 3 - 19+ 3-dose series) 02/02/2007 COVID-19 VACCINE (2023-2 5 season) 2023 DEPRESSION SCREENING 04/14/2024 INFLUENZA VACCINE (Season Ended) 2024 ZOSTER VACCINE (1 of 2) 02/02/2038 HIB VACCINE Aged Out No longer eligi ble based on patient's age to complete this topic HPV VACCINE Aged Out No longer eligi ble based on patient's age to complete this topic MENINGOCOCCAL (Group B) VACC INE SHARED DECISION-MAKING Aged Out No longer eligibl e based on patient's age to complete this topic MENINGOCOCCAL GROUPS A/C/Y/W VACCINE Aged Out No longer eligible b ased on patient's age to complete this topic PNEUMOCOCCAL VACCINE Aged Out No long er eligible based on patient's age to complete this topic Insurance [facility] MEDICA[facility] - OUT OF STATE
[2024-09-23] VITALS (27 sets, daily range): BP systolic 97–114; BP diastolic 53–75; PULSE 82–95; RESP 16–28; TEMP 36.6; O2SAT 97–100
--- NOTE | 2024-09-23 00:04 | PC.NURSE ---
edp aware of patient interrupting this rn while she was discharging and medicating room 2. EDP aware pt cursing and argumentative about being given medications. RN educated pt again about having to wait for a prescriber to see pt and order medications. Pt continues to curse and raise voice at this rn.
[2024-09-23 00:07] LABS: Add Urine Microscopic? YES; Appearance Urine Clear (Clear); Bacteria Urine None Seen /hpf; Bilirubin Urine Negative (Negative); Blood Urine Negative (Negative); Color Urine Yellow (Yellow); Glucose Urine UA Negative (Negative); Ketones Urine Trace mg/dL (Negative); Leukocyte Esterase Ur Negative LEU/UL (Negative); Nitrate Urine Negative (Negative); Non Pathogenic Casts 0-2; Protein Urine Trace mg/dL (Negative); RBC Urine 0-2 /hpf (0-2); Specific Grav Ur 1.027 (1.001-1.035); Squamous Epithelial Cell Urine None Seen /hpf (Few); WBC Urine 0-5 /hpf (0-3); pH Urine 6.5 (5.0-9.0)
--- NOTE | 2024-09-23 00:12 | PC.NURSE ---
pt continually hitting call light asking for pain medications. Pt reeducated about this rn inability to order medications, that a provider has to order them. EDP aware of pt continual request.
[2024-09-23] MEDS: KETOROLAC 15 MG/ML VIAL (*BKC) IV PUSH (00:21)
[2024-09-23] MEDS: MORPHINE SULFATE (*CRX) 2 MG/ML INJ IV PUSH (00:21)
[2024-09-23] MEDS: SODIUM CHLORIDE 0.9% IV 1,000 ML 999 ML IV CONT (00:24)
--- NOTE | 2024-09-23 00:34 | ED.ABDPAIN ---
HPI - Abdominal Pain General Chief Complaint: Abdominal Pain Stated Complaint: abd radiating to chest for 2 days Time Seen by Provider: 09/22/24 23:22 History of Present Illness HPI narrative: Patient is a 34-year-old female who presents to the ER with chest and abdominal pain that started last night. She reports that last night she started experiencing nausea and vomiting, along with pain. Patient reports she has not vomited today but the chest and abdominal pain continue. She denies any recent fevers, diarrhea, urinary symptoms or lower abdominal pain. Patient denies any alcohol or illicit drug use. She denies any pertinent medical history and does not take any daily medication. Related Data Allergies Allergy/AdvReac Type Severity Reaction Status Date / Time No Known Allergies Allergy Verified 09/22/24 22:15 Review of Systems Review of Systems: All systems reviewed & are unremarkable except as noted in HPI and below PMFSH Past Medical History Medical History Schizophrenia Bipolar affective disorder Surgical History Surgical History History of History of tubal ligation Family History Family History Other Diabetes mellitus Social History Social History Smoking status: Never smoker Alcohol intake: never Substance use: never Living arrangements: with family Gender identity (if verbalized by the patient): Female Sexual Orientation (if Verbalized by the Patient): Straight or Heterosexual Spiritual care concerns: No Exam Narrative: GENERAL: Ill appearing, well-nourished, non-toxic, in acute distress d/t pain. HEAD: Normocephalic, atraumatic. NECK: Supple. No adenopathy, no masses. RESPIRATORY: Airway patent, respirations nonlabored. Clear to auscultation bilaterally, no rales, rhonchi, wheezing. CARDIOVASCULAR: Regular rate and rhythm without murmurs, rubs, or gallops. Peripheral pulses 2+ and equal bilaterally. ABDOMINAL: Soft, tender in LUQ and RUQ, nondistended, no hepatosplenomegaly. Normoactive BS. MUSCULOSKELETAL: Moves all extremities. Strength/ROM intact without gross deformities. SKIN: Warm, dry, normal color. No rashes. NEURO: A&O X3. Speech clear. Cranial nerves II-XII intact. No ataxic movements. PSYCHIATRIC: Inappropriate mood, tearful. Normal interaction. Course Vital Signs Vital signs: Vital Signs Temperature 36.6 C 09/22/24 22:20 Pulse Rate 94 09/22/24 22:20 Respiratory Rate 20 09/22/24 22:20 Blood Pressure 135/79 09/22/24 22:20 Pulse Oximetry 100 09/22/24 22:20 Oxygen Delivery Room Air 09/22/24 22:20 Temperature 36.6 C 09/22/24 22:20 Pulse Rate 94 09/22/24 22:20 Respiratory Rate 20 09/22/24 22:20 Blood Pressure 135/79 09/22/24 22:20 Pulse Oximetry 100 09/22/24 22:20 Oxygen Delivery Room Air 09/22/24 22:20 MDM - Abdominal Pain MDM Narrative Medical decision making narrative: Patient is a 34-year-old female who presents to the ER with chest and abdominal pain that started last night. She reports that last night she started experiencing nausea and vomiting, along with pain. Patient reports she has not vomited today but the chest and abdominal pain continue. She denies any recent fevers, diarrhea, urinary symptoms or lower abdominal pain. Patient denies any alcohol or illicit drug use. She denies any pertinent medical history and does not take any daily medication. Labs Ordered: CBC, CMP, UA, lipase, troponin Imaging Ordered: CT abdomen pelvis with con Medications Ordered: 1 L normal saline IV bolus, morphine 2 mg IV, Toradol 15 mg IV Results: Patient's CBC indicates a hemoglobin of 11.8, hematocrit of 35.4%, and platelets of 115. Her CMP indicates a chloride of 108, and glucose of 112. Patient's lipase is 61. Her urinalysis indicates trace ketones. Diagnosis: cholecystitis Risks: HEART score: low risk HEART Score for Major Cardiac Events from [email or web address] on 09/23/2024 All calculations should be rechecked by clinician prior to use RESULT SUMMARY: 0 points Low Score (0-3 points) Risk of MACE of 0.9-1.7%. INPUTS: History ?> 0 = Slightly suspicious EKG ?> 0 = Normal Age ?> 0 = <45 Risk factors ?> 0 = No known risk factors Initial troponin ?> 0 = <=Normal limit Consults: general surgery (outpatient) Patient Education/Shared MDM: 0145- Pt endorses some pain relief and is not requesting any more pain medication at this time. 0230- Pt is requesting additional pain medication at this time. Will give Morphine 4mg IV. 0400- Pt continues to endorse gastric reflux pain. She will be given a GI cocktail and Tylenol prior to discharge. Results of lab work and imaging shared with patient. She endorses improvement of symptoms following medication administration. Patient strongly advised to maintain hydration status upon discharge and follow-up with her PCP as soon as possible. She was advised to take Tylenol and Ibuprofen for pain control at home. Strict return precautions provided. Patient verbalized understanding and is in agreement with plan. Vital signs stable at time of discharge. All questions answered. Differential Diagnosis Differential diagnosis: Likely abdominal pain, acute appendicitis, constipation, diverticulitis, gastroenteritis, small bowel obstruction and other (Cholecystitis) Lab Data Attestation: I reviewed the patient's lab results. 09/22/24 22:48 09/22/24 22:48 Labs: Lab Results 09/22/24 09/22/24 Range/Units 22:48 23:45 WBC 5.9 (4.5-10.0) K/mm3 RBC 3.88 L (4.2-5.4) M/mm3 Hgb 11.8 L (12.0-15.0) g/dL Hct 35.4 L (37.0-47.0) % MCV 91.2 (80-100) fl MCH 30.4 (26-34) pg MCHC 33.3 (32-36) g/dl RDW 12.8 (11.5-14.5) % Plt Count 115 L (150-375) k/mm3 MPV 11.5 H (7.4-10.4) fl Immature Gran % (Auto) 0.3 (0-0.5) % Neut % (Auto) 73.1 (45.5-73.1) % Lymph % (Auto) 17.0 L (18.3-44.2) % [place] % (Auto) 8.0 (2.6-8.5) % Eos % (Auto) 1.4 (0-4.4) % Baso % (Auto) 0.2 (0.2-1.2) % Lymph # (Auto) 1.00 (0.9-3.2) K/mm3 [place] # (Auto) 0.5 (0.1-0.6) K/mm3 Eos # (Auto) 0.1 (0-0.3) K/mm3 Baso # (Auto) 0.0 (0.0-0.1) K/mm3 Abs Immat Gran (auto) 0.02 (0.00-0.031) K/mm3 Absolute Neuts (auto) 4.3 (1.3-6.7) K/mm3 Absolute Nucleated RBC 0.000 (0.0-0.012) K/mm3 Nucleated RBC % 0.0 (0.0-0.2) % Sodium 140 (137-145) mmol/L Potassium 3.7 (3.4-5.0) mmol/L Chloride 108 H (98-107) mmol/L Carbon Dioxide 26 (22-30) mmol/L Anion Gap 6 (4-12) mmol/L BUN 14 (7-17) mg/dL Creatinine 0.72 (0.7-1.0) mg/dL Estim Creat Clear Calc 98 ml/min Estimated GFR > 60 (59 - ) Glucose 112 H (65-110) mg/dL Calcium 8.6 (8.4-10.2) mg/dL Total Bilirubin 0.3 (0.2-1.3) mg/dL AST 25 (14-36) U/L ALT 20 (6-35) U/L Alkaline Phosphatase 89 (38-126) U/L Troponin I < 0.012 (0.000-0.034) ng/mL Total Protein 6.5 (6.3-8.2) g/dL Albumin 3.8 (3.5-5.1) g/dL Lipase 61 (23-300) U/L Urine Color Yellow (Yellow) Urine Appearance Clear (Clear) Urine pH 6.5 (5.0-9.0) Ur Specific [place] 1.027 (1.001-1.035) Urine Protein Trace (Negative) mg/dL Urine Glucose (UA) Negative (Negative) mg/dL Urine Ketones Trace H (Negative) mg/dL Ur Blood (Man) Negative (Negative) Urine Nitrate Negative (Negative) Urine Bilirubin Negative (Negative) Urine Urobilinogen 1.0 (<2.0) mg/dL Leukocyte Esterase Rfl Negative (Negative) LALITO/UL Urine RBC 0-2 (0-2) /hpf Urine WBC 0-5 (0-3) /hpf Ur Squamous Epith Cells None seen (Few) /hpf Urine Bacteria None seen /hpf Urine Casts 0-2 Urine Opiates Screen Negative (Negative) Urine Methadone Screen Negative (Negative) Ur Barbiturates Screen Negative (Negative) Ur Phencyclidine Scrn Negative (Negative) Ur Amphetamine Screen Negative (Negative) U Benzodiazepines Scrn Negative (Negative) Urine Cocaine Screen Negative (Negative) U Cannabinoids Screen Negative (Negative) Discharge Plan Discharge Clinical Impression: Abdominal pain, Biliary colic Patient Disposition: Home Condition: Stable Instructions: Antibiotic Form, Cholecystitis (ED), Abdominal Pain (ED) Additional Instructions: Please return to the ER with any worsening symptoms. Follow-up with primary care provider as soon as possible. Take all medications as prescribed, including regularly scheduled medications. Please use Tylenol and Ibuprofen together for pain control. If you continue to experience gastric reflux you may try over the counter medicine such as Tums or Pepcid. Patient Language: Romanian Prescriptions: No Action meloxicam 15 mg tablet 15 mg PO DAILY Qty: 15 0RF Follow-up/Referrals: Michel Neff MD [Primary Care Provider] - Tacos Bhagat MD [Physician] - (general surgery) Stand Alone Forms: Work/School Release IP
[2024-09-23 00:52] LABS: Amphetamine Screen Urine Negative (Negative); Barbiturate Screen Urine Negative (Negative); Benzodiazepines Screen Urine Negative (Negative); Cannabinoid Screen Urine Negative (Negative); Cocaine Screen Urine Negative (Negative); Methadone Screen Urine Negative (Negative); Opiate Screen Urine Negative (Negative); Phencyclidine Screen Urine Negative (Negative)
[2024-09-23 00:57] LABS: Troponin I < 0.012 ng/mL (0.000-0.034)
[2024-09-23] MEDS: MORPHINE SULFATE (*CRX) 4 MG/ML INJ IV PUSH (02:22)
[2024-09-23] MEDS: BELLADONNA ALK/PHENOB ELIX 10 ML, MAG HYDROX/ALUMINUM HYD/SIMETH 30 ML, LIDOCAINE 2% VI... PO (04:19)
[2024-09-23] MEDS: ACETAMINOPHEN 500 MG TABLET 1000 MG PO (04:19)
== END 2024-09-23 04:43 | disposition home or self-care (01) ==
PROVIDERS: Student in an Organized Health Care Education/Training Program; Emergency Provider Registered Nurse; PCP Internal Medicine
DX: K80.20 Calculus of gallbladder without cholecystitis without obstruction (principal)
CPT/HCPCS: 36415; 71045; 74177; 80053; 80307; 81001; 83690; 84484; 85025; 93005; 96361; 96374; 96375; 96376; 99284; A9270; J1885; J2270; J7030; Q9967

== ENCOUNTER 2024-09-26 13:47 | Inpatient (IN) | payer OTHER, SELFPAY ==
--- NOTE | ~2024-09-26 | NM_ITS ---
EXAMINATION: NM hepatobiliary wo pharm DATE: 09/29/2024 12:40 INDICATION: Assess for bile leak post cholecystectomy COMPARISON: 09/27/2024 TECHNIQUE: 5.2 mCi Tc-99m mebrofenin (Choletec) was administered intravenously. FINDINGS: There is normal clearance of radiotracer from the blood pool. There is homogeneous tracer u ptake by the liver. Activity progresses to the common bile duct and bowel with activity first eviden t on the 10 minute imaging. There is progressive accumulation of bowel activity over the subsequent 1 5 minutes of imaging. No evident bile leak. IMPRESSION: 1. Normal postcholecystectomy hepatobiliary scan with no evident bile leak. Reviewed, dictated and finalized at location A.
--- NOTE | ~2024-09-26 | CT_ITS ---
CLINICAL INDICATION: Abdominal pain, vomiting and diarrhea. COMPARISON: . TECHNIQUE: Multiple contiguous axial images of the abdomen and pelvis were performed following the ad ministration of with 100 mL Omnipaque-350 intravenous contrast The dose-length product (DLP) was 1093.40 mGy-cm. Automated exposure control and iterative reconstruction technique were employed. FINDINGS/OBSERVATIONS: Visualized lower thorax: The bilateral lung bases are clear. The heart is of normal size, without pericardial effusion. Small hiatal hernia is present. Liver: The liver demonstrates homogeneous enhancement and is enlarged measuring 23 cm in longitudinal dimens ion. Gallbladder and biliary system: Redemonstration of gallbladder distention, now with mural thickening and pericholecystic fluid, an in terval change. The inflammation extends to the hepatic flexure of colon Pancreas: The pancreas enhances homogeneously without ductal dilatation. Spleen: The spleen enhances homogeneously and is not enlarged. Kidneys: The bilateral kidneys enhance symmetrically without hydronephrosis or renal calculi. Adrenal glands: Unremarkable. Gastrointestinal tract: Colonic diverticulosis without surrounding inflammatory change. Trace fecal stasis within the colon. Appendix: The air-filled appendix is of normal caliber (axial series, images 120 - 133). Vasculature: Unremarkable. Lymph nodes: No pathologically enlarged or morphologically suspicious lymph nodes within the retroperitoneum or at the root of the mesentery. Pelvic structures: The bladder is minimally distended, and otherwise unremarkable. The uterus is anteverted and anteflexed. Body wall and musculoskeletal: Small fat-containing umbilical hernia. No significant degenerative disease within the lower thoracic or lumbosacral spine. IMPRESSION: Acute cholecystitis, as detailed above. Significant surrounding inflammatory change, extending into the hepatic flexure the colon. Reviewed, dictated and finalized at location A.
--- NOTE | ~2024-09-26 | NM_ITS ---
EXAMINATION: NM hepatobiliary wo pharm DATE: 09/27/2024 14:40 INDICATION: Right upper quadrant abdominal pain. Cholelithiasis. COMPARISON: CT and ultrasound dated 09/26/2024 TECHNIQUE: 4.6 mCi Tc-99m mebrofenin (Choletec) was administered intravenously. Scintigraphic images of the abdomen were obtained for one hour. Additional subsequent 20 minute delay and 4 hour delayed images were obtained. FINDINGS: There is normal clearance of radiotracer from the blood pool. There is homogeneous tracer u ptake by the liver. Activity progresses to the common bile duct and bowel with small bowel activity first evident on the 10 minute delayed images which progressively increases over the remainder of the study. No evident gallbladder activity consistent with acute cholecystitis. IMPRESSION: 1. No evident gallbladder activity consistent with acute cholecystitis. Reviewed, dictated and finalized at location B.
--- NOTE | ~2024-09-26 | US_ITS ---
EXAM: ABDOMEN ULTRASOUND HISTORY: cholecystitis COMPARISON: 08/11/2019. Reference is also made to a CT examination of the abdomen and pelvis, performed the same day. FINDINGS: LIVER: The liver is increased in echogenicity and size measuring 23 cm in longitudinal dimension. The portal vein is patent, demonstrating hepatopedal flow. GALLBLADDER: The gallbladder is markedly distended and enlarged, consistent with hydrops with layerin g sludge and mural thickening. Trace surrounding free fluid is also noted caudal to the gallbladder. BILE DUCTS: Common bile duct measures 3.4mm. PANCREAS: Limited evaluation of the pancreas secondary to overlying bowel gas IMPRESSION: Acute cholecystitis, as detailed above. No common bile duct dilatation. Hepatomegaly. Reviewed, dictated and finalized at location A.
--- OUTSIDE RECORDS SUMMARY | 2024-09-26 13:49 | XMS_ITS | Clinical Summary ---
Author Organization [facility] Address [address] [place] [address] Care Team Providers Care Senior Systems Analyst Name Role Phone Michel Neff MD Primary Care Provider [phone] Allergies No known active allergies Medications Invega [...] Description 09/07/2024 12:25 PM CDT Anesthesia Event [address] [address] Cuauhtemoc Gaona MD 09/07/2024 12:00 PM CDT - 09/07/2024 12:30 PM CDT Surgery [address] [address] Raul Askew MD ESOPHAGOGASTRODUODENOSCOPY BIOPSY 09/07/2024 11:00 AM CDT - 09/07/2024 1:10 PM CDT Hospital Encounter [address] [address] Raul Askew MD Heartburn Discharge Disposition: Discharge to home or self care 09/07/2024 10:05 AM CDT Lab [address] Morbid obesity due to excess calories (HCC) 09/07/2024 9:40 AM CDT Office Visit [address] [place] [address] Raul Askew MD Morbid obesity due to excess calories (HCC) (Primary Dx) 08/17/2024 12:00 PM CDT - 08/17/2024 12:30 PM CDT Surgery [address] [address] Raul Askew MD Not Performed 08/17/2024 12:00 PM CDT Anesthesia Event [address] [address] Berhane Gautam DO Zirkelbach, Cecilia A., CRNA 08/17/2024 10:55 AM CDT - 08/17/2024 11:05 AM CDT Hospital Encounter [address] [address] Raul Askew MD Discharge Disposition: Discharge to home or self care 08/05/2024 11:00 AM CDT - 08/05/2024 11:59 PM CDT Hospital Encounter [facility] Nutrition and Diabetic Education [address] [place] [address] Sanchez, Nubia Roberts RD Discharge Disposition: Discharge to home or self care 08/05/2024 10:35 AM CDT Office Visit [address] [place] [address] Kylee Monet NP Morbid obesity due to excess calories (HCC) (Primary Dx) 08/05/2024 Orders Only [address] [address] Raul Askew MD Morbid obesity due to excess calories (HCC) (Primary Dx) 07/12/2024 10:52 AM CDT - 07/12/2024 11:59 PM CDT Hospital Encounter [facility] Nutrition [facility] Diabetic Education [address] [place] [address] Sanchez, Nubia Roberts RD Discharge Disposition: Discharge to home or self care 07/08/2024 8:40 AM CDT Office Visit [address] [place] [address] Raul Askew MD Morbid obesity [...] on file 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 Room: [facility] ENDOSCOPY ROOM 2 Note Status: Finalized [...] passed under direct vision. The Endoscope [id number]-[id number] was introduced through the mouth, and advanced [...] 11:57 AM Procedure Code(s): --- Professional --- 02959, Esophagogastroduodenoscopy, flexible, transoral; with biopsy, single or multiple --- Technical --- 15026, Esophagogastroduodenoscopy, flexible, transoral; with biopsy, single or multiple Diagnosis Code(s): --- Professional --- K31.89, Other diseases of stomach and duodenum K22.89, Other specified disease of esophagus --- Technical --- K31.89, Other diseases of stomach and duodenum K22.89, Other specified disease of esophagus CPT copyright 2020 [employer]. All rights reserved. The codes documented in this report are preliminary and upon medical consultant reviewmay be revised to meet current compliance requirements. Recognized by the [place] [employer] for promoting quality in endoscopy Raul Askew MD ENDOSCOPY PROCED URES Final Result * Thyroid Function [place] (09/07/2024 10:11 AM CDT) TSH 0.35 0.30 - 4.20 mcIUnit/mL Blood 09/07/2024 10:1 1 AM CDT 09/07/2024 1:10 PM CDT Raul Askew MD LAB BLOOD ORDERA BLES Final Result [facility]) 1 [facility] [place] [address] * Iron profile w/ IBC (09/07/2024 10:11 AM CDT) Iron 79 35 - 145 mcg/dL TIBC 312 250 - 400 mcg/dL [facility] ([place]) Transferrin saturation 25 20 - 50 % [facility] ([place]) Blood 09/07/2024 10:1 1 AM CDT 09/07/2024 1:10 PM CDT Raul Askew MD LAB BLOOD ORDERA BLES Final Result Performing Organization Address [facility] Co de Phone Number [facility]HELLE [facility] ([place]) 1 [facility] [place] [address] * Vitamin A (09/07/2024 10:11 AM CDT) Vitamin A 35.8 32.5 - 78.0 mcg/dL [facility] ref Lab Comment: ADDITIONAL INFORMATION This test was developed and its performance characteristics determined by [facility] in a manner consistent with CLIA requirements. This test has not been cleared or approved by the U.S. Food and Drug Administration. Test Performed by: [facility] [place] [address] Signaler: Bharathi Luna Ph.D.; CLIA# [id number] Blood 09/07/2024 10:1 1 AM CDT 09/07/2024 1:10 PM CDT Raul Askew MD LAB BLOOD ORDERA BLES Final Result Performing Organization Address [facility] Co de Phone Number MICHELLE MCDUFFIE ([place]) 1 [facility] [place] [address] [place] ref Lab * (ABNORMAL) Vitamin D 25 hydroxy (09/07/2024 10:11 AM CDT) Vitamin D 25-OH 14(L) 30 - 80 ng/mL Blood 09/07/2024 10:1 1 AM CDT 09/07/2024 1:10 PM CDT Raul Askew MD LAB BLOOD ORDERA BLES Final Result [facility] ([place]) [address] [facility] [place] [address] * Vitamin B1 (09/07/2024 10:11 AM CDT) [facility] Thiamine (Vit B1) 100 70 - 180 nmol/L [facility] Lab Comment: ADDITIONAL INFORMATION This test was developed and its performance characteristics determined by [facility] in a manner consistent with CLIA requirements. This test has not been cleared or approved by the U.S. Food and Drug Administration. Test Performed by: [address] [address] Signaler: Bharathi Luna Ph.D.; CLIA# [id number] Blood 09/07/2024 10:1 1 AM CDT 09/07/2024 1:00 PM CDT us Raul Askew MD LAB BLOOD ORDERA BLES Final Result Performing Organization Address City/[facility]/ZIP Co de Phone Number MICHELLE CHAN) [address] [facility] [place] [address] [facility] * Hemoglobin A1c (09/07/2024 10:11 AM CDT) [facility] Hgb A1C 4.4 4.0 - 5.6 % Estimated Average Glucose 80 mg/dL [facility] ([place]) Comment: The ADA recommends reporting an estimated Average Glucose (eAG) with all Hemoglobin A1c results using the equation derived from a study of 507 normal and diabetic adults. Minority populations were underrepresented and children were not included. (Diabetes Care 31:5067-0782, 2008). The eAG is not equivalent to a fasting glucose. Blood 09/07/2024 10:1 1 AM CDT 09/07/2024 1:10 PM CDT us Raul Askew MD LAB BLOOD ORDERA BLES Final Result [facility] ([place]) [address] [facility] [place] [address] * Glucose, fasting (09/07/2024 10:11 AM CDT) Glucose, fasting 78 70 - 99 mg/dL Blood 09/07/2024 10:1 1 AM CDT 09/07/2024 1:10 PM CDT us Raul Askew MD LAB BLOOD ORDERA BLES Final Result Performing Organization Address [facility] Co de Phone Number [facility] ([place]) [address] [facility] [place] [address] * Folate (09/07/2024 10:11 AM CDT) Folic acid 10.3 >=5.0 ng/mL Comment:Slightly Hemolyzed S pecimen. Results may be affected. Blood 09/07/2024 10:1 1 AM CDT 09/07/2024 1:10 PM CDT us Raul Askew MD LAB BLOOD ORDERA BLES Final Result Performing Organization Address City/[facility]/ZIP Co de Phone Number [facility] ([place]) 1 [facility] [place] [address] * Ferritin (09/07/2024 10:11 AM CDT) Ferritin 90 15 - 150 ng/mL Blood 09/07/2024 10:1 1 AM CDT 09/07/2024 1:10 PM CDT Raul Askew MD LAB BLOOD ORDERA BLES Final Result [facility] ([place]) [address] [facility] [place] [address] * Vitamin B12 (09/07/2024 10:11 AM CDT) Vitamin B12 534 230 - 1,250 pg/mL Blood 09/07/2024 10:1 1 AM CDT 09/07/2024 1:10 PM CDT us Raul Askew MD LAB BLOOD ORDERA BLES Final Result [facility] ([place]) 1 [facility] Department [place] [address] * Lipid panel (09/07/2024 10:11 AM CDT) [...] on 2017. Chol/HDL ratio 3 CERROSA R [facility] ([place]) Blood 09/07/2024 10:1 1 AM CDT 09/07/2024 1:10 PM CDT us Raul Askew MD LAB BLOOD ORDERA BLES Final Result MICHELLE [facility] ([place]) [address] [place] [address] Department [place] [address] * Surgical pathology (09/07/2024 10:01 AM CDT) Tissue (Gastric/Stomach biopsy) 09/07/2024 12:35 PM CDT Tissue specimen (specimen) ([place], Biopsy) 09/07/2024 12:36 PM CDT Narrative PATHOLOGY [facility] ([place]) - 09/10/2024 10:20 AM CDT EPIC results best viewed via link to PDF [facility] Department of Pathology [address] [place] [address] Note to Patients: This report may contain [...] Final Report Patient Name: MANISHA JIMÉNEZ Address: [address] [place] [address] Gender: F : 1990 (Age: 34) Service: Surgery Location: [facility] Hospital #: [id number] Patient Type: [facility] Taken: 09/07/2024 Received: 09/08/2024 Accessioned: 09/08/2024 Reported: [...] determined by the Surgical Pathology Department at [facility] as part of an ongoing quality project manager program and in compliance with federally [...] characteristics determined by the Surgical Pathology Department [facility]. It has not been cleared or approved by the U. S. Food and Drug Administration. Note for decalcified specimens: This assay has not been validated on decalcified tissues. Results should be interpreted with caution given the possibility of false negativity on decalcified specimens Raul Askew MD LAB PATHOLOGY OR DERABLES Final Result PATHOLOGY [facility] ([place]) [address] [place] [address] from Last 3 Months Insurance [facility] [address] [facility] Advance Directives For more information, please contact: [phone] * Full Code (Latest Code Status on File) Date Activated Date Inactivated Comments 09/07/2024 11:15 AM 09/07/2024 5:15 PM * Full Code Date Activated Date Inactivated Comments 09/07/2024 11:15 AM 09/07/2024 11:15 AM Care Teams Senior Systems Analyst Relationship Specialty Start Date End Date Michel Neff MD [address] [facility] [place] [address] PCP - General Internal Medicine 10/09/23
--- OUTSIDE RECORDS SUMMARY | 2024-09-26 13:49 | XMS_ITS | Referral Summary ---
Author Organization [facility] Address [address] [place] [address] Care Team Providers Care Associate Director Finance Name Role Phone Michel Neff MD Primary Care Provider [phone] Encounters Date Type Department Care Team Description 09/07/2024 10:05 AM CDT Lab [address] Morbid obesity due to excess calories (HCC) 09/07/2024 12:25 PM CDT Anesthesia Event [address] [address] Cuauhtemoc Gaona MD 09/07/2024 9:40 AM CDT Office Visit [address] [place] [phone] Raul Askew MD Morbid obesity due to excess calories (HCC) (Primary Dx) 09/07/2024 12:00 PM CDT - 09/07/2024 12:30 PM CDT Surgery [address] [address] Raul Askew MD ESOPHAGOGASTRODUODENOSCOPY BIOPSY 09/07/2024 11:00 AM CDT - 09/07/2024 1:10 PM CDT Hospital Encounter [address] [address] Raul Askew MD Heartburn Discharge Disposition: Discharge to home or self care 08/17/2024 12:00 PM CDT - 08/17/2024 12:30 PM CDT Surgery [address] [address] Raul Askew MD Not Performed 08/17/2024 12:00 PM CDT Anesthesia Event [facility] [address] [place] [address] Berhane Gautam DO Zirkelbach, Cecilia A., CRNA 08/17/2024 10:55 AM CDT - 08/17/2024 11:05 AM CDT Hospital Encounter [facility] [address] [place] [address] Raul Askew MD Discharge Disposition: Discharge to home or self care 08/05/2024 11:00 AM CDT - 08/05/2024 11:59 PM CDT Hospital Encounter [facility] [address] [address] Sanchez, Nubia Roberts RD Discharge Disposition: Discharge to home or self care 08/05/2024 Orders Only [address] [address] Raul Askew MD Morbid obesity due to excess calories (HCC) (Primary Dx) 08/05/2024 10:35 AM CDT Office Visit [facility] [address] [place] [address] [address] [address] Kylee Monet NP Morbid obesity due to excess calories (HCC) (Primary Dx) 07/12/2024 10:52 AM CDT - 07/12/2024 11:59 PM CDT Hospital Encounter [facility] 1 [facility] Room [address] [address] Sanchez, Nubia Roberts RD Discharge Disposition: Discharge to home or self care 07/08/2024 8:40 AM CDT Office Visit [facility] [address] [place] [address] [address] [address] Raul Askew MD Morbid obesity due to [...] on file 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 Room: [facility] ENDOSCOPY ROOM 2 Note Status: [...] passed under direct vision. The Endoscope [id number]-[id number] was introduced through the mouth, and advanced [...] 11:57 AM Procedure Code(s): --- Professional --- 21786, Esophagogastroduodenoscopy, flexible, transoral; with biopsy, single or multiple --- Technical --- 37192, Esophagogastroduodenoscopy, flexible, transoral; with biopsy, single or multiple Diagnosis Code(s): --- Professional --- K31.89, Other diseases of stomach and duodenum K22.89, Other specified disease of esophagus --- Technical --- K31.89, Other diseases of stomach and duodenum K22.89, Other specified disease of esophagus CPT copyright 2020 [employer]. All rights reserved. The codes documented in this report are preliminary and upon professional fee coder reviewmay be revised to meet current compliance requirements. Recognized by the [employer] for promoting quality in endoscopy Raul Askew MD ENDOSCOPY PROCED URES Final Result * Thyroid Function [place] (09/07/2024 10:11 AM CDT) TSH 0.35 0.30 - 4.20 mcIUnit/mL Blood 09/07/2024 10:1 1 AM CDT 09/07/2024 1:10 PM CDT Raul Askew MD LAB BLOOD ORDERA BLES Final Result Performing Organization Address [facility] Co de Phone Number MICHELLE MCDUFFIE ([place]) 1 [facility] [employer] [place] [address] * Iron profile w/ IBC (09/07/2024 10:11 AM CDT) Iron 79 35 - 145 mcg/dL TIBC 312 250 - 400 mcg/dL [facility] ([place]) Transferrin saturation 25 20 - 50 % [facility] Blood 09/07/2024 10:1 1 AM CDT 09/07/2024 1:10 PM CDT Raul Askew MD LAB BLOOD ORDERA BLES Final Result Performing Organization Address City/[facility] Co de Phone Number MICHELLE MCDUFFIE ([place]) 1 [facility] [place] [address] * Vitamin A (09/07/2024 10:11 AM CDT) Vitamin A 35.8 32.5 - 78.0 mcg/dL [facility] Lab Comment: ADDITIONAL INFORMATION This test was developed and its performance characteristics determined by [facility] in a manner consistent with CLIA requirements. This test has not been cleared or approved by the U.S. Food and Drug Administration. Test Performed by: [facility] [place] [address] Storm Chaser: Bharathi Luna Ph.D.; CLIA# [id number] Blood 09/07/2024 10:1 1 AM CDT 09/07/2024 1:10 PM CDT Raul Askew MD LAB BLOOD ORDERA BLES Final Result [facility] ([place]) [address] [place] [address] [place] [address] [place] ref Lab * (ABNORMAL) Vitamin D 25 hydroxy (09/07/2024 10:11 AM CDT) [facility] Vitamin D 25-OH 14(L) 30 - 80 ng/mL Blood 09/07/2024 10:1 1 AM CDT 09/07/2024 1:10 PM CDT Raul Askew MD LAB BLOOD ORDERA BLES Final Result Performing Organization Address City/[facility]/ZIP Co de Phone Number MICHELLE MCDUFFIE ([place]) 1 [facility] [place] [address] * Vitamin B1 (09/07/2024 10:11 AM CDT) Pathologist [facility] Thiamine (Vit B1) 100 70 - 180 nmol/L [place] ref Lab Comment: ADDITIONAL INFORMATION This test was developed and its performance characteristics determined by [facility] in a manner consistent with CLIA requirements. This test has not been cleared or approved by the U.S. Food and Drug Administration. Test Performed by: [facility] - [address] [address] Storm Chaser: Bharathi Luna Ph.D.; CLIA# [id number] Blood 09/07/2024 10:1 1 AM CDT 09/07/2024 1:00 PM CDT Raul Askew MD LAB BLOOD ORDERA BLES Final Result Performing Organization Address [facility] Co de Phone Number MICHELLE MCDUFFIE ([place]) [address] [facility] [place] [address] [place] ref [facility] * Hemoglobin A1c (09/07/2024 [...] and children were not included. (Diabetes Care 31:1893-8179, 2008). The eAG is not equivalent to a fasting glucose. Blood 09/07/2024 10:1 1 AM CDT 09/07/2024 1:10 PM CDT Raul Askew MD LAB BLOOD ORDERA BLES Final Result Performing Organization Address [facility] Co de Phone Number MICHELLE MCDUFFIE ([place]) [address] [facility] [place] [address] * Glucose, fasting (09/07/2024 10:11 AM CDT) Glucose, fasting 78 70 - 99 mg/dL Blood 09/07/2024 10:1 1 AM CDT 09/07/2024 1:10 PM CDT Raul Askew MD LAB BLOOD ORDERA BLES Final Result Performing Organization Address City/[facility] Co de Phone Number MICHELLE MCDUFFIE ([place]) [address] [facility] [place] [address] * Folate (09/07/2024 10:11 AM CDT) Pathologist [facility] Folic acid 10.3 >=5.0 ng/mL Comment:Slightly Hemolyzed S pecimen. Results may be affected. Blood 09/07/2024 10:1 1 AM CDT 09/07/2024 1:10 PM CDT Raul Askew MD LAB BLOOD ORDERA BLES Final Result MICHELLE MCDUFFIE ([place]) 1 [facility] [place] [address] * Ferritin (09/07/2024 10:11 AM CDT) [facility] Ferritin 90 15 - 150 ng/mL Blood 09/07/2024 10:1 1 AM CDT 09/07/2024 1:10 PM CDT Raul Askew MD LAB BLOOD ORDERA BLES Final Result Performing Organization Address City/[facility]/ZIP Co de Phone Number MICHELLE MCDUFFIE ([place]) 1 [facility] [place] [address] * Vitamin B12 (09/07/2024 10:11 AM CDT) [facility] Vitamin B12 534 230 - 1,250 pg/mL Blood 09/07/2024 10:1 1 AM CDT 09/07/2024 1:10 PM CDT Raul Askew MD LAB BLOOD ORDERA BLES Final Result Performing Organization Address City/[facility]/ZIP Co de Phone Number MICHELLE MCDUFFIE ([place]) [address] [facility] [place] [address] * Lipid panel (09/07/2024 10:11 AM CDT) [facility] Cholesterol 137 30 - 199 mg/dL [...] BLES Final Result MICHELLE MCDUFFIE ([place]) 1 [facility] Department [place] [address] * Surgical pathology (09/07/2024 10:01 AM CDT) Tissue (Gastric/Stomach biopsy) 09/07/2024 12:35 PM CDT Tissue specimen (specimen) ([place], Biopsy) 09/07/2024 12:36 PM CDT Narrative PATHOLOGY RETA ([place]) - 09/10/2024 10:20 AM CDT EPIC results best viewed via link to PDF [facility] Department of Pathology [address] [place] [id number] Note to Patients: This report may contain [...] Final Report Patient Name: MANISHA LUNDY Address: [address] [place] [address] Gender: F : 1990 (Age: 34) Service: Surgery Location: [facility] Hospital #: [id number] Patient Type: [facility] Taken: 09/07/2024 Received: 09/08/2024 Accessioned: 09/08/2024 Reported: [...] determined by the Surgical Pathology Department at [facility] as part of an ongoing clinical quality analyst program and in compliance with federally mandated [...] characteristics determined by the Surgical Pathology Department [facility]. It has not been cleared or approved by the U. S. Food and Drug Administration. Note for decalcified specimens: This assay has not been validated on decalcified tissues. Results should be interpreted with caution given the possibility of false negativity on decalcified specimens Raul Askew MD LAB PATHOLOGY OR DERABLES Final Result Performing Organization Address City/State/[facility] Co de Phone Number PATHOLOGY [facility] ([place]) [address] [place] [address] from Last 3 Months Insurance IDPA [facility] Advance Directives For more information, please contact: [phone] * Full Code (Latest Code Status on File) Date Activated Date Inactivated Comments 09/07/2024 11:15 AM 09/07/2024 5:15 PM * Full Code Date Activated Date Inactivated Comments 09/07/2024 11:15 AM 09/07/2024 11:15 AM Care Teams Associate Director Finance Relationship Specialty Start Date End Date Michel Neff MD [address] [facility] [address] PCP - General Internal Medicine 10/09/23
--- OUTSIDE RECORDS SUMMARY | 2024-09-26 13:49 | XMS_ITS | Clinical Summary ---
Author Organization [facility] Address [address] [place] [address] Care Team Providers Care Letterpress Setter Name Role Phone Unavailable Primary Care Provider Unavailabl e Source Comments [facility],non-owned Affiliates and Associated Physician Practices is amultiple site organization consisting of ambulatory clinics and hospital sitesin [place], [place], [place] and [place]. This disclosure is being madepursuant to the Care Everywhere program and may not contain all information available regarding this patient. Last updated 18.[facility] Active Problems Patient Care Coordination No [...] on file Legal Sex Female 11:31 AM [employer]EL YARDP[employer] Gender Identity Not on file Sexual Orientation [...] patient's age to complete this topic Insurance [facility] HE[employer] PLAN MEDICAID - OUT OF STATE
--- OUTSIDE RECORDS SUMMARY | 2024-09-26 13:49 | XMS_ITS | Data Portability ---
Author Organization [facility] Address [address] [place] [address] Care Team Providers Care Breeding Technician Name Role Phone DEVIN TYSON Primary Care [...] fluid 2021 [facility], [address], [address] [address], [place], [address], 13:08:32 lh + FSH, serum 2021 [facility] (Centralized Electronic Ordering - All Locations), Patient Can Go To The Location Of Their Choice, [address] 13:08:37 dhea-sulfat e, serum 2021 [facility] (Centralized Electronic Ordering - All Locations), Patient Can Go To The Location Of Their Choice, [address] 13:08:35 testosteron e, total, serum 2021 [facility] (Centralized Electronic Ordering - All Locations), Patient Can Go To The Location Of Their Choice, [address] 13:08:35 CMP, serum or plasma 2021 [place] [facility] (Centralized Electronic Ordering - All Locations), Patient Can Go To The Location Of Their Choice, [address] 13:08:33 lipid panel, serum 2021 [place] [facility] (Centralized Electronic Ordering - All Locations), Patient Can Go To The Location Of Their Choice, [address] 13:08:32 TSH, ultra-sensi tive, serum 2021 [facility], [address], [place], [address], 13:08:34 HbA1c (hemoglobin A1c), blood 2021 [facility], [address], [place], [address], 13:08:34 prolactin, serum 2021 [facility], [address], [place], [address], 13:08:36 HCG, intact + beta subunit, quant, serum or plasma 2021 [facility], [address], [place], [address], 13:08:36 HIV 1 + 2, meaningful use set 2021 [facility], [address], [place], [address], 06:12:08 RPR (rapid plasma reagin), serum 2021 [facility], [address], [place], [address], 2 06:12:08 hepatitis panel (A+B+C), acute, serum 2021 [facility], [address], [place], [address], 2 06:12:07 chlamydia trachomatis + neisseria gonorrhoeae + trichomonas vaginalis DNA panel, FREDRICK+probe, unspecified specimen 2021 [facility], [address], [place], [address], 2 06:12:07 vaginal pathogens panel, FREDRICK+probe, vaginal fluid 2021 [facility], [address], [place], [address], 2 06:12:26 urinalysis, dipstick 2021 022 [place] In-Office Order, Internal Use Only DO Not Attach Compendium DO Not Attach Compendium, Do Not Delete/merge, [id number] 2 12:08:26 Referral None recorded. Procedures None recorded. Surgeries None recorded. Imaging None recorded. Medication Orders ketoconazol e 2 % topical cream 2024 025 [place] [id number], [address], [place], [id number], 5 14:37:55 meloxicam 7.5 mg tablet 2024 025 [place] [facility], [address], [place], [id number], 5 15:44:45 acetaminoph en 500 mg tablet 2022 023 [email or web address] [facility] [facility], [address], [place], [place], [id number], 3 07:10:47 Augmentin 875 mg-125 mg tablet 2022 023 [id number], [address], [place], [id number], 3 17:00:44 Patient TargetsNo targets recorded. Patient InstructionsNo instructions recorded. Reason for Referral None Reported. Results Created Date Observation Date Name Description Value Unit Range Abnormal Flag Note LastModifiedBy Organization Detail LastModifiedTime 05/24/19 22 05/25/2021 CT, NG, TRICH VAG BY FREDRICK chlamydia by FREDRICK Negati ve negati ve Not Available [facility] ([facility]) [address] [place], [address], 05/26/2021 06:12:26 05/24/1905/25/2021 CT, NG, TRICH VAG BY FREDRICK gonococcus by FREDRICK Negati ve negati ve Not Available [facility] ([facility]) [address] [place], [address], 05/26/2021 06:12:26 05/24/19 22 05/25/2021 CT, NG, TRICH VAG BY FREDRICK trich vag by FREDRICK Negati ve negati ve Not Available [facility] ([facility]) [address] [place], [address], 05/26/2021 06:12:26 05/24/1905/24/2021 urina lysis , dipst ick Leukocytes Negati ve Not Available In-Office Order Internal Use Only DO Not Attach Compendium DO Not Attach Compendium, Do Not Delete/merge, [id number] 05/24/2021 11:59:45 05/24/1905/24/2021 urina lysis , dipst ick Nitrite negati ve Not Available In-Office Order Internal Use Only DO Not Attach Compendium DO Not Attach Compendium, Do Not Delete/merge, [id number] 05/24/2021 11:59:45 05/24/19 22 05/24/2021 urina lysis [...] 05/24/2021 urina lysis , dipst ick Specific [place] 1.010 Not Available In-Off ice Order Internal [...] DO Not Attach Compendium, Do Not Delete/merge, [id number] 05/24/2021 11:59:45 05/24/19 22 05/24/2021 urina lysis , dipst ick Appearance Clear Not Available In-Offi ce Order Internal Use Only DO Not Attach Compendium DO Not Attach Compendium, Do Not Delete/merge, [id number] 05/24/2021 11:59:45 05/24/19 22 05/24/2021 urina lysis , dipst ick Color Yellow Not Available In-Office Order Internal Use Only DO Not Attach Compendium DO Not Attach Compendium, Do Not Delete/merge, 05/24/2021 11:59:45 11/06/19 22 11/06/2021 ACUTE HEPAT ITIS hep A Ab, IgM Negati ve negati ve Not Available [facility] ([facility]) [address] [place], [address], 11/07/2021 06:12:07 11/06/19 22 11/06/2021 ACUTE HEPAT ITIS HBsAg screen Negati ve negati ve Not Available [facility] ([facility]) [address] [place], [address], 11/07/2021 06:12:07 11/06/19 22 11/06/2021 ACUTE HEPAT ITIS hep B core Ab, IgM Negati ve negati ve Not Available [facility] ([facility]) [address] [place], [address], 11/07/2021 06:12:07 11/06/19 22 11/06/2021 ACUTE HEPAT ITIS HCV Ab 0.1 s/co_ ratio 0.0-0. 9 Not Available [facility] ([facility]) [address] [place], [address], 11/07/2021 06:12:07 11/06/19 22 11/06/2021 ACUTE HEPAT ITIS interpretati on: Commen t Negat stiven Not infec claritza with HCV, unles s recen t infec tion is suspe cted or other evide nce exist s to indic ate HCV infec tion. Not Available [facility] ([facility]) [address] [facility], [place], [address], 11/07/2021 06:12:07 11/06/19 22 11/07/2021 CT, NG, TRICH VAG BY FREDRICK chlamydia by FREDRICK Negati ve negati ve Not Available [facility] ([facility]) [address] [place], [address], 11/07/2021 06:12:07 11/06/19 22 11/07/2021 CT, NG, TRICH VAG BY FREDRICK gonococcus by FREDRICK Negati ve negati ve Not Available [facility] ([facility]) [address] [facility], [place], [address], 11/07/2021 06:12:07 11/06/19 22 11/07/2021 CT, NG, TRICH VAG BY FREDRICK trich vag by FREDRICK Negati ve negati ve Not Available [facility] ([facility]) [address] [place], [address], 11/07/2021 06:12:07 11/06/19 22 11/06/2021 RPR, RFX QN RPR/C ONFIR M TP RPR Non Reacti ve non reacti ve Not Available [facility] ([facility]) [address] [place], [address], 11/07/2021 06:12:08 11/06/19 22 11/06/2021 HIV AB/P2 4 AG WITH REFLE X HIV Ab/P24 Ag screen Non Reacti ve non reacti ve HIV Negat stiven HIV-1 /HIV- 2 antib odies and HIV-1 p24 antig en were NOT detec claritza. There is no labor atory evide nce of HIV infec tion. Not Available [facility] ([facility]) [address] [place], [address], 11/07/2021 06:12:08 02/08/2002/08/2022 NUSWA B VAGIN ITIS PLUS (VG+) atopobium vaginae High - 2 score abnormal Not Available [facility] ([facility]) [address] [facility], [place], [address], 02/09/2022 13:08:32 02/08/2002/08/2022 NUA B VAGIN ITIS PLUS (VG+) bvab 2 High - 2 score abnormal Not Available [facility] ([facility]) [address] [facility], [place], [address], 02/09/2022 13:08:32 02/08/2002/08/2022 NUA B VAGIN ITIS [...] Drug Admin istra tion. Not Available [facility] ([facility]) [address] [facility], [place], [address], 02/09/2022 13:08:32 02/08/2002/08/2022 NUA B VAGIN ITIS PLUS (VG+) janee albicans, FREDRICK Negati ve negati ve Not Available [facility] ([facility]) [address] [facility], [place], [address], 02/09/2022 13:08:32 02/08/20 22 02/08/2022 NUSWA B VAGIN ITIS PLUS (VG+) janee glabrata, FREDRICK Negati ve negati ve Not Available [facility] ([facility]) [address] [facility], [place], [address], 02/09/2022 13:08:32 02/08/20 22 02/09/2022 NUA B VAGIN ITIS PLUS (VG+) trich vag by FREDRICK Negati ve negati ve Not Available [facility] ([facility]) [address] [facility], [place], [address], 02/09/2022 13:08:32 02/08/2002/09/2022 NUA B VAGIN ITIS PLUS (VG+) chlamydia trachomatis, FREDRICK Negati ve negati ve Not Available [facility] ([facility]) [address] [facility], [place], [address], 02/09/2022 13:08:32 02/08/2002/09/2022 NUA B VAGIN ITIS PLUS (VG+) neisseria gonorrhoeae, FRDERICK Negati ve negati ve Not Available [facility] ([facility]) [address] [facility], [place], [address], 02/09/2022 13:08:32 02/08/20 22 02/08/2022 LIPID PANEL WITH LDL/H DL RATIO cholesterol, total 152 mg/dL 100-19 9 Not Available [facility] ([facility]) [address] [facility], [place], [address], 02/09/2022 13:08:32 02/08/20 22 02/08/2022 LIPID PANEL WITH LDL/H DL RATIO triglyceride s 86 mg/dL 0-149 Not Available [facility] ([facility]) [address] [facility], [place], [address], 02/09/2022 13:08:32 02/08/20 22 02/08/2022 LIPID PANEL WITH LDL/H DL RATIO HDL cholesterol 50 mg/dL >39 Not Available [facility] ([facility]) [address] [place], [address], 02/09/2022 13:08:32 02/08/20 22 02/08/2022 LIPID PANEL WITH LDL/H DL RATIO VLDL cholesterol kanu 16 mg/dL 5-40 Not Available [facility] ([facility]) [address] [place], [address], 02/09/2022 13:08:32 02/08/20 22 02/08/2022 LIPID PANEL WITH LDL/H DL RATIO LDL chol calc (nih) 86 mg/dL 0-99 Not Available [facility] ([facility]) [address] [facility], [place], [address], 02/09/2022 13:08:32 02/08/20 22 02/08/2022 LIPID PANEL WITH LDL/H DL RATIO LDL/HDL ratio 1.7 ratio 0.0-3. 2 LDL/H DL Ratio Men Women 1/2 Avg.R isk 1.0 1.5 Avg.R isk 3.6 3.2 2X Avg.R isk 6.2 5.0 3X Avg.R isk 8.0 6.1 Not Available [facility] ([facility]) [address] [place], [address], 02/09/2022 13:08:32 02/08/20 22 02/08/2022 COMP. METAB OLIC PANEL (14) glucose 93 mg/dL 70-99 Not Available [facility] ([facility]) [address] [place], [address], 02/09/2022 13:08:33 02/08/20 22 02/08/2022 COMP. METAB OLIC PANEL (14) BUN 11 mg/dL 6-20 Not Available [facility] ([facility]) [address] [place], [address], 02/09/2022 13:08:33 02/08/20 22 02/08/2022 COMP. METAB OLIC PANEL (14) creatinine 0.56 mg/dL 0.57-1 .00 below low normal Not Available [facility] ([facility]) [address] [facility], [place], [address], 02/09/2022 13:08:33 02/08/20 22 02/08/2022 COMP. METAB OLIC PANEL (14) eGFR 123 mL/mi n/1.7 3 >59 Not Available [facility] ([facility]) [address] [facility], [place], [address], 02/09/2022 13:08:33 02/08/20 22 02/08/2022 COMP. METAB OLIC PANEL (14) BUN/creatini ne ratio 20 9-23 Not Available [facility] ([facility]) [address] [facility], [place], [address], 02/09/2022 13:08:33 02/08/20 22 02/08/2022 COMP. METAB OLIC PANEL (14) sodium 142 mmol/ L 134-14 4 Not Available [facility] ([facility]) [address] [facility], [place], [address], 02/09/2022 13:08:33 02/08/20 22 02/08/2022 COMP. METAB OLIC PANEL (14) potassium 4.2 mmol/ L 3.5-5. 2 Not Available [facility] ([facility]) [address] [facility], [place], [address], 02/09/2022 13:08:33 02/08/20 22 02/08/2022 COMP. METAB OLIC PANEL (14) chloride 106 mmol/ L 96-106 Not Available [facility] ([facility]) [address] [facility], [place], [address], 02/09/2022 13:08:33 02/08/20 22 02/08/2022 COMP. METAB OLIC PANEL (14) carbon dioxide, total 22 mmol/ L Not Available [facility] ([facility]) [address] [facility], [place], [address], 02/09/2022 13:08:33 02/08/20 22 02/08/2022 COMP. METAB OLIC PANEL (14) calcium 9.3 mg/dL 8.7-10 .2 Not Available [facility] ([facility]) [address] [facility], [place], [address], 02/09/2022 13:08:33 02/08/20 22 02/08/2022 COMP. METAB OLIC PANEL (14) protein, total 6.3 g/dL 6.0-8. 5 Not Available [facility] ([facility]) [address] [facility], [place], [address], 02/09/2022 13:08:33 02/08/20 22 02/08/2022 COMP. METAB OLIC PANEL (14) albumin 4.2 g/dL 3.8-4. 8 Not Available [facility] ([facility]) [address] [facility], [place], [address], 02/09/2022 13:08:33 02/08/20 22 02/08/2022 COMP. METAB OLIC PANEL (14) globulin, total 2.1 g/dL 1.5-4. 5 Not Available [facility] ([facility]) [address] [facility], [place], [address], 02/09/2022 13:08:33 02/08/20 22 02/08/2022 COMP. METAB OLIC PANEL (14) A/G ratio 2.0 1.2-2. 2 Not Available [facility] ([facility]) [address] [facility], [place], [address], 02/09/2022 13:08:33 02/08/20 22 02/08/2022 COMP. METAB OLIC PANEL (14) bilirubin, total 0.4 mg/dL 0.0-1. 2 Not Available [facility] ([facility]) [address] [facility], [place], [address], 02/09/2022 13:08:33 02/08/20 22 02/08/2022 COMP. METAB OLIC PANEL (14) alkaline phosphatase 95 IU/L 44-121 Not Available [facility] ([facility]) [address] [place], [address], 02/09/2022 13:08:33 02/08/20 22 02/08/2022 COMP. METAB OLIC PANEL (14) AST (SGOT) 26 IU/L 0-40 Not Available [facility] ([facility]) [address] [place], [address], 02/09/2022 13:08:33 02/08/20 22 02/08/2022 COMP. METAB OLIC PANEL (14) ALT (SGPT) 27 IU/L 0-32 Not Available [facility] ([facility]) [address] [facility], [place], [address], 02/09/2022 13:08:33 02/08/20 22 02/08/2022 TSH RFX ON ABNOR MAL TO FREE T4 TSH 0.571 uIU/m L 0.450- 4.500 Not Available [facility] ([facility]) [address] [place], [address], 02/09/2022 13:08:34 02/08/20 22 02/08/2022 HEMOG LOBIN A1C hemoglobin A1C 4.9 % 4.8-5. 6 Predi abete s: 5.7 - 6.4 Diabe juan: >6.4 Glyce jos contr ol for adult s with diabe juan: <7.0 Not Available [facility] ([facility]) [address] [facility], [place], [address], 02/09/2022 13:08:34 02/08/20 22 02/08/2022 DHEA- SULFA TE DHEA-sulfate 63.7 ug/dL 84.8-3 78.0 below low normal Not Available [facility] ([facility]) [address] [place], [address], 02/09/2022 13:08:35 02/08/20 22 02/08/2022 TESTO STERO NE testosterone 3 NG/dL 8-60 below low normal Not Available [facility] ([facility]) [address] [place], [address], 02/09/2022 13:08:35 02/08/20 22 02/08/2022 HCG,B ETA SUBUN IT, QNT HCG,beta subunit,qnt, serum <1 mIU/m L Femal e (Non- pregn ant) 0 - 5 (Post menop ausal ) 0 - 8 Femal e (Preg nant) Weeks of Gesta tion 3 6 - 71 4 10 - 750 5 907 - 4353 6 054 - 82486 7 2570 -9339 63 8 66486 -6009 71 9 37759 -3595 10 10 27520 -0643 77 12 89877 -2371 12 14 33912 - 87031 15 87010 - 33195 16 4930 - 81552 17 2856 - 80267 18 8331 - 34992 Sandor ECLIA metho dolog y Not Available [facility] ([facility]) [address] [place], [address], 02/09/2022 13:08:36 02/08/20 22 02/08/2022 PROLA CTIN prolactin 35.9 NG/mL 4.8-23 .3 above high normal Not Available [facility] ([facility]) [address] [place], [address], 02/09/2022 13:08:36 02/08/20 22 02/08/2022 FSH AND LH LH 8.4 mIU/m L Adult Femal e: Folli cular phase 2.4 - 12.6 Ovula tion phase 14.0 - 95.6 Lutea l phase 1.0 - 11.4 Postm enopa usal 7.7 - 58.5 Not Available [facility] ([facility]) [address] [facility], [place], [address], 02/09/2022 13:08:37 02/08/2002/08/2022 FSH AND LH FSH 15.9 mIU/m L Adult Femal e: Folli cular phase 3.5 - 12.5 Ovula tion phase 4.7 - 21.5 Lutea l phase 1.7 - 7.7 Postm enopa usal 25.8 - 134.8 Not Available [facility] ([facility]) [address] [facility], [place], [address], 02/09/2022 13:08:37 Result Notes None recorded. Problems Name Problem SNOMED Code Status Onset Date Resolution Date Notes Provider Name and Address Organization Details Recorded Time Pregnanc y 71718061 Completed 201709/02/2018 [place] bar[place], [place] - [facility] 9 16:12:50 Urinary tract infectio us disease 88161115 Active 2017 Noy Beyer MD Attn: Zach aranda,[address] [place], [address], [facility] 0 11:27:20 Urinary tract infectio us disease 52431402 Completed 2017 Noy Beyer MD Attn: Zach aranda,[address] [place], [address], [place] [facility] 0 11:27:20 Bacteria l vaginosi s 948048332 Completed 2017 Noy Beyer MD Attn: Zach aranda,[address] [place], [address], [place] [facility] 0 11:27:20 Bacteria l vaginosi s 268217636 Active 2017 Noy Beyer MD Attn: Zach aranda,[address] [place], [address], [place] [facility] 0 11:27:20 Chlamydi al cervicit is 972837936 Completed 2017 Noy Beyer MD Attn: Accountsherri g,[address], [place], [address] [place] [address] [address], [facility] 0 11:27:19 Chlamydi al cervicit is 740348009 Active 2017 Noy Beyer MD Attn: Accountin g,[address], [place], [address] [place] [address] 2, [facility] - [facility] 0 11:27:19 Group B Streptoc occus carrier [id number] 03 Completed 2018 Noy Beyer MD Attn: Accountsherri g,[address], [place], [address] [place] [address] 2, [facility] - [facility] 0 11:27:20 Group B Streptoc occus carrier [id number] 03 Active 2018 Noy Beyer MD Attn: Accountin g,[address], [place], [address] [place] [address] 2, [facility] - [facility] 0 11:27:20 Genital herpes simplex 80853360 Completed 2018 Noy Beyer MD Attn: Accountsherri g,[address], [place], [address] [place] [address] 2, [facility] 0 11:27:20 Genital herpes simplex 67062270 Active 2018 Noy Beyer MD Attn: Accountsherri g,[address], [place], [address] [place] [address] 2, [facility] - [facility] 0 11:27:20 Abnormal finding on antenata l screenin g of mother 785448009 Completed 2018 Noy Beyer MD Attn: Accountsherri g,[address], [place], [address] [place] [address] 2, [facility] 0 11:27:20 Abnormal finding on antenata l screenin g of mother 791477486 Completed 201802/06/2021 [place] Nicholson [facility] 1 15:18:32 Glucose toleranc e test outside referenc e range 034857476 Completed 2018 IMPAIRED 1 HR GTT Noy Beyer MD Attn: Fransicosherri aranda,[address] [place], [address], [place] [facility] 0 11:27:19 Glucose toleranc e test outside referenc e range 429153313 Active 2018 IMPAIRED 1 HR GTT Noy Beyer MD Attn: Fransicosherri aranda,[address], [place], [address] [place] [address] 2, [place] [facility] 0 11:27:20 Anemia of pregnanc y 13937694 Completed 2018 Noy Beyer MD Attn: Fransicosherri aranda,[address], [place], [address] [place] [address] 2, [place] [facility] 0 11:27:19 Anemia of pregnanc y 21868430 Active 2018 Noy Beyer MD Attn: Fransicosherri aranda,[address], [place], [address] [place] [address] 2, [place] [facility] 0 11:27:19 Female steriliz ation Completed 2018 Noy Beyer MD Attn: Fransicosherri aranda,[address], [place], [address] [place] [address] 2, [place] [facility] 0 11:27:20 Female steriliz ation Active 2018 Noy Beyer MD Attn: Zach rosi,[address], [place], [address] [place] [address] 2, [place] [facility] 0 11:27:20 Deliveri es by 799103178 Active 2019 [place] Lynlele [place] [facility] 0 13:22:55 Sexually transmit claritza infectio us disease 1762686 Active 2020 [place] ShortLyn nargis, [place] - [facility] 1 15:24:14 Problem Notes None recorded. Procedures Surgical History Date Name Laterality Status Provider Name and Address Organization Details Recorded Time 08/03/19 25 Matrixectomy completed Carlos Alberto Holland FABIOLA [address] [place], [address], [facility] 08/02/2024 14:37:00 11/06/19 23 Generic Procedure completed GEOFFREY LEMUS DPM [address], [place], [address], [facility] 11/05/2022 23:10:32 03/27/20 21 Date of Last Pap Smear completed Mattie Gross [place] - [facility] 11/05/2021 11:13:03 10/31/19 19 TUBAL LIGATION (SURG) completed [place]olson [place] - [facility] 11/06/2018 06:45:26 Imaging Results None [...] Updated DateTime 2 154.94 cm 38.1 kg/m2 10326.2 6 g 67 /min 98.4 [degF] 98 % 98 % 102 mm[Hg] 80 mm[Hg] Mattie Gross [place] - [facility] 2 11:44:15 Date Recorded Heart rate Body weight Body mass index (BMI) Body height Systolic blood pressure Diastolic blood pressure Provider Name and Address Organization Details Last Updated DateTime 5 79 /min 829135. 72 g 44 kg/m2 152.4 cm 95 mm[Hg] 63 mm[Hg] Lila Bragg MA [facility] 5 14:24:33 Date Recorded Body height Body mass index (BMI) Body weight Heart rate Body temperature Oxygen saturation Oxygen saturation in Arterial blood by Pulse oximetry Systolic blood pressure Diastolic blood pressure Provider Name and Address Organization Details Last Updated DateTime 2 154.94 cm 39.3 kg/m2 65255.2 1 g 79 /min 97.9 [degF] 98 % 98 % 102 mm[Hg] 64 mm[Hg] Mattie Gross MA [facility] 2 11:11:55 Date Recorded Body height Body mass index (BMI) Body weight Heart rate Body temperature Systolic blood pressure Diastolic blood pressure Provider Name and Address Organization Details Last Updated DateTime 3 154.94 cm 44.1 kg/m2 025374. 18 g 71 /min 98.6 [degF] 128 mm[Hg] 71 mm[Hg] Flower Torres MA [facility] 3 14:46:22 Date Recorded Body height Body mass index (BMI) Body weight Body temperature Heart rate Oxygen saturation Oxygen saturation in Arterial blood by Pulse oximetry Systolic blood pressure Diastolic blood pressure Provider Name and Address Organization Details Last Updated DateTime 2 154.94 cm 41.2 kg/m2 28955.1 4 g 98.1 [degF] 81 /min 98 % 98 % 100 mm[Hg] 70 mm[Hg] Sari Chua MA [facility] 2 09:28:30 Social History Question Answer Notes LastModified by Organizat ion Details LastModified Time Tobacco Smoking Status Never Smoker Jeffrey Avendaño MA null, [facility] 03/18/2018 14:25:41 Do You Have An Advance [...] Or The Highest Degree You Have Received? [id number] Information not available 02/06/2021 Have There Been [...] Do You Have A Medical Power Of Steerer? No Information not available 11/05/2022 What Was [...] High Blood Pressure N Breast Cancer N Lung Disease N Depression N COPD N Blood Clots N Breast Problem N Anesthesia Complications N Headaches/Migraines N Anxiety Disorder N Muscle, Joint, or Bone Problems N Infertility N Polyps N Acid Reflux (GERD) N Cancer N Stroke N Endometriosis N High Cholesterol N Liver Disease N Headaches Y Thyroid Problems N Kidney or Bladder Problems N GI Problems N Acne N Eating Disorder N Skin Problems N Anemia N Heart Attack ([place]) N Diabetes N Ovarian Cancer N Blood Transfusions N Seizures/Epilepsy N Abuse/Domestic Violence N Asthma N Allergies Y Hepatitis N Heart Disease N Pre-Eclampsia N Heart Failure N Osteoporosis N Gynecological History Statement/Question Response Abnormal Pap [...] Recorded Time Tdap 06/11/2018 completed Not Available [facility] 05/01/2019 02:44:21 Tdap 02/22/2016 completed [place], [place] - [facility] 01/14/2017 16:59:12 Past Encounters Encounter ID Performer Location Encounter Start Date Encounter Closed Date Diagnosis/Indication Diagnosis SNOMED-CT Code Diagnosis ICD10 Code Diagnosis Note [id number] HORACIO Ascencio NP [facility] [address] [place] [address] 07/15/2016 16:23:17 07/15/2016 17:33:40 Low back pain 535061840 M54.5 Naproxen prn. Rest, ice. Discussed good body mechanics and low back exercises. F/u if symptoms persist/wo rsen Gall[place] [id number] K80. 20 Discussed low fat diet. F/u if symptoms persist/wo rsen. Onychomyco sis of toenails 052014064 B35.1 Obtain CMP. Start oral/topic al regimen after reviewed. F/u 2 weeks Pediculosis capitis 8100 0006 B85.0 Start permethrin as directed. Discussed lice treatment and prevention . [id number] HORACIO Ascencio NP [facility] [address] [place] [address] 07/19/2016 10:40:41 08/14/2016 12:06:50 Onychomycosis of toenails 386016527 B35.1 [id number] MD Erin Rodriguez (COAL [employer]ER) [address] [place] [address] 03/18/2018 14:06:09 03/19/2018 11:31:31 Routine care 060222066 Z34.90 Obese 033783517 E66.9 Urinary tr act infectious disease 98372166 N39.0 Counseled about it. Positive s creening for depression on PHQ-9 (Patient Health Questionnaire 9) 9993208602 59826 Z13.89 Advised patient to f/u with Counselor. [id number] MD Erin Rodriguez (COAL HAND[employer]ER) [address] [place] [address] 05/01/2018 14:34:02 05/05/2018 16:45:08 Routine care 673335515 Z34.90 Urinary tr act infectious disease 56079658 N39.0 Counseled about it. History of chlamydial infection 220707314 Z86.19 D/W patient nuswab result. She say she took azithromyc in and partner was treated. Counseled about it. Safe sex counseling and use of condoms. Advised patient no intercours e until treatment. Notified patient that Partner need to be treated. THOMAS done today. Group B St reptococcus carrier [id number] 103 Z22.330 d/w patient about it and counseled thoroughly about it. Genital he rpes simplex 28826154 A60.9 Counseled thoroughly about it and safe sex. Advised patient to report outbreaks. Patient on acyclovir for suppressio n. Advised patient to continue. [id number] Kathryn Ferguson MD [facility] ([facility]) [address] [place] [address] 06/11/2018 14:56:41 06/11/2018 15:25:12 Routine care 733845390 Z34.90 Diabetes m ellitus screening 291939719 Z13.1 Abnormal f inding on screening of mother 946950689 O28.9 Patient say she saw [facility] and she say she had blood work done for genetics at that time. Patient refused amniocente sis. Advised nurse Shantel to get the records. e say she had f/u appointmen t. Reduced fe adonis movement 520208223 O36.8199 Counseled about it. Patient to L & D for NST and BPP today. Kick counts discussed. Acute urin destini tract infection 003998114 N39.0 Counseled about it. [id number] [facility] [address] [place] [address] 09/02/2018 11:40:50 09/04/2018 09:48:31 Routine care 019055229 Z34.[address] reptococcus carrier 5926668804 103 Z22.330 Abnormal f inding on screening of mother 302067565 O28.9 Chlamydial cervicitis 23 7323374 A56.09 Anemia of 2734 2003 O99.019 Glucose to lerance test outside reference range 024163378 R73.09 Genital he rpes simplex 55804943 A60.9 Female sterilization 608 80298 Z30.2 Acute urin destini tract infection 819311032 N39.0 [id number] Michoacano Nicholson MD [facility] ([employer]) [address] [place] [address] 09/17/2018 16:39:06 09/21/2018 11:28:08 care 811393670 Z39.2 d elivery - delivered 426327008 O82 Female sterilization 608 69526 Z30.2 [id number] Michoacano Nicholson MD [facility] ([facility]) [address] [place] [address] 10/14/2018 14:32:49 10/14/2018 19:25:53 [id number] Michoacano Nicholson MD [facility] ([employer] [facility]) [address] [place] [address] 0 11/03/2018 11:29:05 11/06/2018 09:44:46 care 977442048 Z39.2 Exposure t o sexually transmissible disorder 696528408 Z20.2 Female sterilization [address] reptococcus carrier 2645275220 103 Z22.960 [id number] [facility] [address] [place] [address] 01/05/2019 10:06:43 01/06/2019 16:01:05 Deliveries by 458850193 O82 Bacterial vaginosis 4197 19565 N76.0 Candidiasis of skin 4988 3006 B37.2 [id number] MAX AARON [facility] [address] [place] [address] 01/21/2020 15:26:05 01/24/2020 11:29:18 Loss of hair 422606962 L65.9 Patient presents for hair loss x 2 months. Will check labs. - balanced diet- control stress- f/u prn [id number] MAX AARON [facility] [address] [place] [address] 03/01/2020 16:20:22 03/04/2020 18:48:40 Acute sciatica 977444693 M54.31 patient with right sided pain that shoots to leg. - ibuprofen 400mg tid- exercises given- weight loss- f/u prn Loss of hair 806218390 L 65.9 Patient presents for hair loss x 2 months. Will check labs. - balanced diet- control stress- f/u prn Obesity 952378163 E66.9 BMI 36.8. discussed diet and excercise. Advised cutting back on sweet tea as she had replaced soda with this. We discussed no more than 20g of added sugar per day. Discussed portion sizes. She would like to see internet marketing strategist. [id number] MAX AARON [facility] [address] [place] [address] 06/06/2020 08:13:09 06/09/2020 11:45:21 Candidiasis of vagina 43249051 B37.3 Take your medicines exactly as prescribed [...] have finished your treatment. Do not douche. [id number] MAX AARON [facility] [address] [place] [address] 08/11/2020 08:05:10 08/11/2020 16:46:04 Cyst of Bartholin's gland duct 03704191 N75.0 On exam patient has bartholin cyst. Will make accounting/finance tutor appointmen t. Vaginal discharge 544905 006 N89.8 Patient has had increased vaginal discharge x 2 months. Has a change in smell. Started out as itchy. Obtained nuswab in office. on exam patient has cyst of bartholin gland. Will see obgyn. denies fever, chills, abnormal periods, pelvic pain, dysuria, increased urine frequency - need to redo swab as it is Friday and [facility] already came today. [id number] MD Erin Lees (COAL HAND[employer]ER) [address] [place] [address] 02/06/2021 14:43:12 02/07/2021 13:03:43 Female sterilization 64066205 Z30.2 2019 Genital he rpes simplex 56452954 A60.[address] reptococcus carrier 6848549657 103 Z22.330 Deliveries by 719337561 O82 Family lyly nning surveillance 563268145 Z30.09 tubal ligation 2019 Sexually t ransmitted infectious disease 9940581 A64 exposure to trichomona s, rx given in ER ~01/23/21 Irritable bowel syndrome 72841684 K58.9 dicyclomin e as needed [id number] MAX POMPA (Adult Med) [address] [place] [address] 03/27/2021 11:22:57 03/28/2021 13:12:29 Gynecologic examination 02413796 Z01.419 She follows with OBGYN upstairs regularly and follows with [facility] for and primary care.Compl aining of external [...] mild discomfort on bimanual exam Candidal vulvovaginitis 95874699 B37.3 Complainin g of dry, painful, pruritic [...] home to let area air out Cellulitis 330017120 L03 .90 Complainin g of 2 small [...] screening with RPR testing- f/u with PCP [id number] MAX POMPA (Adult Med) [address] [place] [address] 05/24/2021 11:30:04 05/25/2021 12:48:37 Infection by Trichomonas 40381249 A59.9 She recently tested positive for trichomono as, she was asymptomat ic at this time, she took the medication as prescribed and doing well today.Devendra es fever, chills, nausea, vomiting, pelvic pain, vaginal discharge and vaginal lesions.- urine dipstick normal the office today- urine collected for THOMAS, will call with results- use condoms in the future to protect against STDs [id number] MAX POMPA (Adult Med) [address] [place] [address] 11/05/2021 10:57:13 11/06/2021 11:48:52 Venereal disease screening 642941470 Z11.3 Pt presents today for general screening of STI and STDs. Pt denies dysuria, abdominal pain, fevers/chi lls, vaginal pain, vaginal discharge, vaginal pruritus. Given pt request, assess for CT, NG, trichomona s, HIV, Syphilis, and hepatitis. [id number] MAX POMPA (Adult Med) [address] [place] [address] 02/07/2022 09:21:39 02/11/2022 13:47:26 Irregular periods 14592976 N92.6 Hx of regular menses, with a [...] exercise to minimize weight gain Vaginal discharge 950419 006 N89.8 Admits to new onset clear vaginal discharge that fills up her underware at night while sleeping- nuswab ordered [id number] GEOFFREY LEMUS DPM [facility] [address] [place] [address] 11/05/2022 14:40:26 11/15/2022 09:37:14 Cellulitis of toe of left foot 3280271594 2711806 L03.032 Left hallux cellulitis was evaluated and it should be noted that antibiotic s were discussed and a close evaluation was performed to assess the need for IV antibiotic s versus oral antibiotic s. Due to the non-ascend ing nature of the cellulitis , oral antibiotic s were chosen. Rx Augmentin 875/125 mg BID for 14 days. Localized edema 19592374 4 R60.0 Ingrowing nail of toe of left foot 6588510388 7388990 L60.0 Pain of to e of left foot 2044928443 08632 M79.[id number] [facility] [address] [place] [address] 08/02/2024 13:41:34 08/02/2024 14:56:56 Ingrowing nail 519688295 L60.0 Onychomyco sis due to dermatophyte 724019569 B35.1 Apply topical antifungal to nails 1 through 10 daily until resolution . Health Concerns Section Related Observation LastModified by Organization Detai ls LastModified Time None Recorded Concern Status LastModified by Organization Details LastModified Time None Recorded Advance Directives Directive N: Payers Insurance Date Sequence Insurance Name Policy Number Policy Holbrook Covered Member ID Holbrook Member ID Guarantor Name 02/07/2021 1 [facility] - DOS PRIOR TO 2020 (MEDICAID REPLACEMENT - HMO) Manisha Kamron [id number] Manisha Kamron 02/06/2021 2 MED[place]: [facility] Manisha Kamron [id number] Manisha Kamron 02/06/2021 1 PENDING SALE TO [facility] (MEDICAID HMO) Manisha Kamron [id number] Manisha Kamron 10/28/2022 1 [facility] - DOS ON OR AFTER 20 (MEDICAID REPLACEMENT - HMO) Manisha Kamron [id number] Manisha Kamron Notes Date Note Type Note Provider Name and Address Organization Details Recorded Time 05/24/2021 text/html 31 year old sam talbert presents today for THOMAS. 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 Denies fever, chills, nausea, vomiting, pelvic pain, vaginal discharge and vaginal lesions. MAX POMPA Attn: Accounting[address] [place], [address], [place] [facility] 05/24/2021 12:56:59 11/05/2021 text/html Pt presents toda [...] or dysuria. MAX POMPA Attn: Accounting[address] [place], [address], [facility] 11/05/2021 13:06:22 02/07/2022 text/html 32 year old [...] and cramps. MAX POMPA Attn: Accounting[address] [facility], [place], [address], [facility] 02/07/2022 16:14:27 11/05/2022 text/html 32 year old [...] ankle. Denies any other pedal complaints. GEOFFREY LEMUS DPM [address] [place], [address], [place] [facility] 11/06/2022 07:17:26 08/02/2024 text/html Patient presents to clinic for painful ingrowing nail to her right big toe. Also has thickened nails on both feet request medication for this. Carlos Alberto Holland DPM [address], [place], [address], [facility] 08/02/2024 15:44:43 OBGyn Episode Ob Episode Information Episode Created Date Number of Fetuses Patient Bloodtype Patient rh Status Prepregnancy Weight lbs Domestic Partner Domestic Partner Phone Father Name Mechanical Engineering Officer Status 03/18/20 18 1 O Positive 198 CLOSED Fetus Data First Name Last Name Admitted to NICU Weight (g) Sex Living Outcome Pediatric Complications Fetus ID Race Codes Race Delivery Type Essence Triplett lla Ramir ez false 2976.69 75 F true Full Term Peds, Dr.David Mckenzie, [place], [facility] [address] 2106-3 White Problems Problem Notes Problem Name Start Date End Date Resolution Snomed Code Not e Genital herpes simplex 05/01/2018 598282 06 Group B Streptococcus carrier 05/01/2018 3245934002914 Bacterial vaginosis 03/25/2018 579312821 Urinary tract infectious disease 03/24/2018 05970400 Chlamydial cervicitis 03/25/2018 2600177 06 Anemia of 07/20/2018 74084106 Female sterilization 09/02/2018 62873363 Abnormal finding on screening of mother 05/06/2018 083385149 Glucose tolerance test outside reference range 07/20/2018 105312799 IMPA IRED 1 HR GTT Jin Calculation Initial Jin Date Initial Exam Date Initial Exam Provider Initial Ultrasound Date Last Menstrual Period Date Ultra Sound Weeks Gestation 09/05/2018 03/18/2018 [email or web address] 03/30/2018 11/20/2017 17 Eighteen To Twenty Week Jin Update Ultra Sound Date Fundal Height At Umbil Quickening Date Ultra Sound Latest Weeks Gestation Final Jin Confirmed By Final Jin Confirmed Date Final Jin Date Ultra Sound Latest Days Gestation 03/30/20 18 17 [email or web address] 09/02/2018 019 2 Pre- Flowsheet Flowsheet Date 03/18/2018 Schafer Score Blood Edema Fundus Height Fundus Units Glucose Ketones Leukocytes Nitrite Labor Signs Protein Cervic Dilation Cervic Effacement Cervic Station neg none 15 cm none trace none neg 0cm 0% -4 Type Weight in lbs Pre/Post Dialysis Refused Weight 198.296621881493 BP Diastolic BP Location Tested BP Systolic [...] Weight in lbs Pre/Post Dialysis Refused Weight 197.700506554154 BP Diastolic BP Location Tested BP Systolic [...] Weight in lbs Pre/Post Dialysis Refused Weight 196.414645877661 BP Diastolic BP Location Tested BP Systolic [...] Weight in lbs Pre/Post Dialysis Refused Weight 198.803923670473 BP Diastolic BP Location Tested BP Systolic [...] Weight in lbs Pre/Post Dialysis Refused Weight 179.804239815740 BP Diastolic BP Location Tested BP Systolic [...] Weight in lbs Pre/Post Dialysis Refused Weight 186.374231716819 BP Diastolic BP Location Tested BP Systolic BP Type Fetus Heart Rate Present Fetus Movement Comments Menstrual History Last Menstrual Date Menses Monthly On Bcp Conception Prior Menses Frequency Hcg Plus Date Menarche Onset Age 0811/20/2017 true 28 13 Genetic Screening And Infection History Question Response Note Patient's Age Will Be 35 Years Or Older At Estim ated Date of Delivery false Thalassemia (Welsh, Macanese, Mediterranean, Or Background): MCV < 80 false Neural Tube Defect (Meningomyelocele, Spina Bifi da, Or Anencephaly) false Congenital Heart Defect false Down Syndrome false Blas-Sachs (eg, Episcopal, Cajun, Croatian-Vance) f alse John Disease false Sickle Cell Disease Or Trait () false Hemophilia Or Other Blood Disorders false Muscular Dystrophy false Cystic Fibrosis false [place] Chorea false Mental Retardation/Autism false If Yes, [...] Alcohol jayant 03/18/2018 Intimate partner violence sv uyymonserrat 03/18/2018 Environmental/work hazards s vickmonserrat 03/18/2018 Screening for aneuploidy svu yymonserrat 03/18/2018 Nutrition counseling ; special diet; dietary precautions (mercury, listeriosis) jayant 03/18/2018 Childbirth classes/hospital facilities s[facility]ma 03/18/2018 HIV and other routine tests [facility] 03/18/2018 Risk factors identif ied by history [facility] 03/18/2018 Weight gain counseling [facility] 03/18/2018 Exercise [facility] 03/18/2018 Teratogens [facility] 03/18/2018 Use of any medicatio ns (including supplements, vitamins, herbs, or OTC drugs) [facility] 03/18/2018 [facility] 03/18/2018 Sexual activity [facility] 03/18/2018 Tobacco/smoking cess ation counseling (ask, advise, assess, assist, and arrange) [facility] 03/18/2018 Illicit/recreational drugs s [facility] 03/18/2018 Dental care [facility] 03/18/2018 Travel [facility] 03/18/2018 Seat belt use [facility] 03/18/2018 Indications for ultrasonography [facility] 03/18/2018 Avoidance of saunas or hot tubs [facility] 03/18/2018 Toxoplasmosis precautions (cats/raw meat) [facility] Second Trimester Discussed Date Discussion Item Discussion Note Discuss ed By 05/01/2018 Selecting a care provider [facility] 05/01/[address]ning/tubal sterilization [facility] 05/01/2018 Depression screening (when indicated) [facility] 05/01/2018 Abnormal lab values [facility] 05/01/2018 Signs and symptoms of labor [facility] 05/01/2018 Intimate partner violence [facility] 05/01/2018 Tobacco/smoking cess ation counseling (ask, advise, assess, assist, and arrange) [facility] Third Trimester Discussed Date Discussion Item Discussion Note Discuss ed By 06/11/2018 [facility] 06/11/[facility] Anesthesia plans [facility] 06/11/2018 Arnold education (n ewborn screening, jaundice, SIDS/safe sleeping position, car seat) [facility] 06/11/2018 Circumcision [facility] 06/11/2018 Postterm counseling [facility] 06/11/2018 movement monitoring [facility] 06/11/2018 [facility] 06/11/2018 Labor signs [facility] 06/11/2018 depression sv[facility] 06/11/2018 Family medical leave or disability forms [facility] 06/11/2018 Tobacco/smoking cess ation counseling (ask, advise, assess, assist, and arrange) [facility] 06/11/2018 Signs and symptoms of preeclampsia [facility] Delivery Information Delivery Date Delivery Type Labor [...] Domestic Partner Domestic Partner Phone Father Name Mechanical Engineering Officer Status 03/18/20 18 1 CLOSED Fetus Data First Name Last Name Admitted to NICU Weight (g) Sex Living Outcome Pediatric Complications Fetus ID Race Codes Race Delivery Type 3345.24 1 F Full Term [address]77 Standard Vaginal Delivery Jin Calculation Initial Jin [...] Domestic Partner Domestic Partner Phone Father Name Mechanical Engineering Officer Status 06/11/19 19 1 CLOSED Fetus Data First Name Last Name Admitted to NICU Weight (g) Sex Living Outcome Pediatric Complications Fetus ID Race Codes Race Delivery Type 3259.96 5704 M Full Term [address] Standard Vaginal Delivery Jin Calculation Initial Jin [...] Domestic Partner Domestic Partner Phone Father Name Mechanical Engineering Officer Status 03/18/20 18 1 CLOSED Fetus Data First Name Last Name Admitted to NICU Weight (g) Sex Living Outcome Pediatric Complications Fetus ID Race Codes Race Delivery Type 3175.14 4 F Full Term [address] Standard Vaginal Delivery Jin Calculation Initial Jin [...]
--- OUTSIDE RECORDS SUMMARY | 2024-09-26 13:49 | XMS_ITS | Patient Health Record ---
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 Name Role Phone Michel Neff Primary Care Provider Freddie Gomes Unavailable [phone] [facility] Unav ailable Unavailable Alessandra Maharaj Unavailable [phone] Jacy Wen Unavailable [phone] Allergies No Known Allergies Results Component Value Reference Range Notes Test, Urine Reviewed date:03/19/2024 03:41:54 PM Interpretation: Performing Lab: Notes/Report: Test, Urine neg Negative - Negative Reason For Referral Reason prefers [facility] Diagnosis 1 Morbid (severe) obes ity due to excess calories (E66.01) Referral Organization [facility] Referring Provider First Name Michel Referring Provider Last Name Aishwarya Referring Provider Speciality Internal edicine Referred Provider Specialty Bariatric [facility] General Notes Latesha Vega 02/13 02:28:31 PM > Referral sent to Dr. Askew-Bariatric Surgeon in [place]. Letter sent to patient. Clinical Notes Bariatric Surgeon, Coral Askew, [address] [facility], [address], [facility], [address], ph: [phone], fax: [phone] Referral Priority Routine Reason INGROWN TOENAIL, PRE FERS [place]HOKIA Diagnosis 1 Ingrown right greate r toenail (L60.0) Referral Organization [facility] Referring Provider First Name Michel Referring Provider Last Name Aishwarya Referring Provider Speciality Internal M edicine Referred Provider Specialty Podiatry General Notes Monet Beckwith 0 07/13/2024 02:21:06 PM > referral sent to Podiatry. Letter sent Clinical Notes [facility] - Podiatry, Iglesia Tadeo DPM, [address] [place] [address], , Referral Priority Urgent Medications Medication SIG [...] 06/11/2024 Active Vitamin D (Ergocalciferol) 1.25 MG (98520 UT) TAKE 1 CAPSULE BY MOUTH EVERY [...] Problem Status W/U Status Risk Notes Problem [id number] Morbid (severe) obesity due to excess calories (E66.01) Active confirmed Problem Secondary amenorrhea (723723224) Secondary amenorrhea (N91.1) Active confirmed Problem Vitamin D deficiency (30651708) Vitamin D insufficiency (E55.9) Active confirmed Problem Anxiety (31295395) Anxiety (F41.9) Active confi rmed Problem Schizophrenia (89914619) Schizophrenia (F20.9) Active confirmed Problem Menstrual disorder (751148629) Irregular menses (N92.6) Active confirmed Problem Overweight (768296291) Over weight (E66.3) Active confirmed Problem 87593784 Depression, unspecified depression type (F32.9) 03/24/20 20 Active confirmed Problem 524428440 Tension headache (G44.209) Active confirmed Problem 409472962910755 Obesity (BMI 30.0-34.9) (E66.9) Active confirmed Problem 36210737 Schizophrenia, unspecified type (F20.9) Active confirmed Problem 12322005 Migraine without status migrainosus, not intractable, unspecified migraine type (G43.909) Active confirmed Problem Tobacco use (209576153) Tobacco use disorder (F17.200) Active confirmed Problem Pain in female genitalia on intercourse (39422867) Dyspareunia in female (N94.10) Active confirmed Problem Obesity (922002605) Obesity, unspecified classification, unspecified obesity type, unspecified whether serious comorbidity present (E66.9) Active confirmed Problem 8361509002714624 Patellofemoral syndrome, left (M22.2X2) Active confirmed Problem Constipation by delayed colonic transit (73123043) Constipation by delayed colonic transit (K59.01) Active confirmed Problem 020012599 Body mass index [BMI] 40.0-44.9, adult (Z68.41) [...] 09/15/2024 Encounters Encounter Location Date Provider Diagnosis [address] [address] 10/21/2023 Michel Neff Patellofemoral arthralgia of right knee M25.561 ; Secondary amenorrhea N91.1 ; Migraine without status migrainosus, not intractable, unspecified migraine type G43.909 ; Morbid (severe) obesity due to excess calories E66.01 ; Nutritional counseling Z71.3 and Schizophrenia F20.[address] [address] 12/09/2023 Arif Habib Schizophrenia F20.[address] [address] 12/22/2023 Michel Neff Morbid (severe) obesity due to excess calories E66.01 ; Migraine without status migrainosus, not intractable, unspecified migraine type G43.909 ; Patellofemoral arthralgia of right knee M25.561 and Tinea corporis B35.[address] [address] 02/10/2024 Michel Neff Patellofemoral arthralgia of right knee M25.561 ; Tension headache G44.209 ; Tinea corporis B35.4 and Morbid (severe) obesity due to excess calories E66.[address] [address] 02/17/2024 Arif Habib Schizophrenia F20.9 and Nutritional counseling Z71.[address] [address] 03/08/2024 Michel Neff Nutritional counseling Z71.3 and Morbid (severe) obesity due to excess calories E66.[address] [place] [address] 03/16/2024 Arif Habib Nutritional counseling Z71.3 and Schizophrenia F20.9 [place] [address] [place] [address] 03/19/2024 Michel Neff Epigastric pain R10.13 ; Dyspareunia in female N94.10 ; Irregular menses N92.6 ; Tension headache G44.209 ; Nutritional counseling Z71.3 and Morbid (severe) obesity due to excess calories E66.[address] [address] 03/25/2024 Michel Neff Tension headache G44.209 and Epigastric pain R10.[address] [address] 04/20/2024 Arif Habib Nutritional counseling Z71.3 and Schizophrenia F20.[address] [address] 04/26/2024 Michel Neff Dorsalgia of multipl e sites in spine M54.9 and Nutritional counseling Z71.3 [address] [place] [place] [address] 06/11/2024 Michel Neff Migraine without status migrainosus, not intractable, unspecified migraine type G43.909 ; Obesity, unspecified classification, unspecified obesity type, unspecified whether serious comorbidity present E66.9 and Dyspareunia in female N94.[address] [address] 06/15/2024 Arif Habib Nutritional counseling Z71.3 and Schizophrenia F20.[address] [place] [address] 07/08/2024 Michel Neff Ingrown right greate r toenail L60.0 ; Cellulitis L03.90 ; Morbid (severe) obesity due to excess calories E66.01 and Nutritional counseling Z71.[address] [address] 07/19/2024 Michel Neff Over weight E66.3 ; Patellofemoral syndrome, left M22.2X2 and Schizophrenia F20.[address] [address] 08/16/2024 Arif Habib [address] [address] 08/17/2024 Arif Habib Schizophrenia F20.[address] [address] 09/14/2024 Arif Habib Nutritional counseling Z71.3 and Schizophrenia F20.[address] [address] 09/15/2024 Michel Linkner Over weight E66.3 ; Hair loss L65.9 ; Dorsalgia of multiple sites in spine M54.9 ; Migraine without status migrainosus, not intractable, unspecified migraine type G43.909 and Patellofemoral syndrome, left M22.2X2 [address] [address] 10/17/2023 Jacy Wen [address] [address] 10/23/2023 Alessandra Maharaj [address] [address] 11/07/2023 Arif Habib [facility] [address] [place] [address] 12/31/2023 Michel Neff [facility] [address] [place] [address] 01/22/2024 Jacy Wen [place] [address] [address] 04/20/2024 Freddie Mirandanancy [address] [address] 07/08/2024 Michelsherri Linkner [address] [address] 08/05/2024 Michel Neff Morbid (severe) obesity due [...] N91.1) DISCUSSED TRIAL OF PROGESTERONE CHALLENGE AND FILM COATER REFERRAL IF UNSUCCESSFUL. 12/22/2023 Morbid (severe) obesity [...] , 10/01/2024 01:00:00 PM, [address], [place], [address], Provider Name:Freddie Mireya, 04:00:00 PM, [address] [place], [address], Insurance Providers Payer Name Payer Address Payer Phone Subscriber Number Group Number Insured Name Patient Relationship to Insured Coverage Start Date Coverage End Date [employer] Att Claims Department [address] [place] [address] [phone] [id number] Manisha Lundy Self - patient is the insured 5 5 [facility] [address] [place] [address] [id number] Manisha Lundy Self - patient is the insured 4 5 MEDICA[employer] [address] [place] [address] [id number] Manisha Lundy Self - patient is the insured 4 5 [facility] [address] [place] [address] [id number] Manisha Lundy Self - patient is the insured 5 [employer] Claims Department [address] [place] [address] [phone] [id number] Manisha Lundy Self - patient is the insured 2 4 [employer] Attn Claims Department [address] [place] [address] [id number] Manisha Lundy Self - patient is the insured 5 Medications Administered Medication Instructions Date of Administration Dosage Notes Invega Sustenna 05/23/2020 156 mg Manufact by [employer]. Pt brett wel. 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 Pt voiced no [...] mg Pt brett we ll. Manufact by [employer] Invega Sustenna 04/08/2023 156 mg Pt brett we ll. Manufact by [employer]. Invega Sustenna 05/07/2023 156 mg Pt brett we ll. Invega Sustenna 07/01/2023 156 mg Manufact by [employer] Pt brett well. Invega Sustenna 07/30/2023 117 mg Pt brett we ll. [facility] [employer] [facility] 08/26/2023 117 mg Manufact by [employer] Pt brett well. Invega Sustenna 10/21/2023 117 mg Manufact by [employer] Pt brett well. Invega Sustenna 12/09/2023 117 mg Pt brett we ll. [facility] [employer] [facility] S[facility]enna 02/17/2024 117 mg Manufact by [employer] Pt brett well. Invega Sustenna 03/16/2024 117 mg Pt brett we ll. Invega Sustenna 04/20/2024 117 mg Pt brett we ll. Invega Sustenna 06/15/2024 117 mg Manufact by [employer] Pt brett well. Invega Sustenna 07/19/2024 117 mg Pt brett we ll. Invega Sustenna 08/17/2024 117 mg Pt brett we ll. Invega Sustenna 09/14/2024 117 mg Pt brett we ll. Manufact by [employer] [facility] (General) History Surgical History Surgery Date(Month/Year) 2019 tubal ligation 2019 Hospitalization History Reason Date(Month/Year) Urgent care for toothache Nov 2023 2019
--- NOTE | 2024-09-26 14:00 | ED.ABDPAIN ---
HPI - Abdominal Pain General Chief Complaint: Abdominal Pain <Columba Magaña APRN - Last Filed: 09/28/24 19:04> Stated Complaint: abdominal pain, fever <Columba Magaña APRN - Last Filed: 09/28/24 19:04> Time Seen by Provider: 09/26/24 13:59 <Columba Magaña APRN - Last Filed: 09/28/24 19:04> History of Present Illness HPI narrative: Patient is a 34-year-old female who presents to the ER with abdominal pain that started several days ago. She was seen in the ER three days ago and sent home on pain medications and oral antibiotics as pt wanted to try to manage her symptoms as an outpatient, but reports they didn't work. Patient reports she has been vomiting and had diarrhea with the most recent episode happening immediately prior to arrival. She also reports today she is unable to urinate and has had intermittent fevers. Patient denies any alcohol or illicit drug use. She denies any pertinent medical history, but her chart indicates she has a history of schizophrenia and bipolar disorder. Pt denies any chest pain, shortness of breath, or leg swelling. *Pt reports she tried to follow-up with general surgery as advised but she reports they don't take my insurance. <Columba Magaña APRN - Last Filed: 09/28/24 19:04> Related Data Home Medications: Home Medications ?Medication ?Instructions ?Recorded ?Confirmed ?Last Taken ?Type paroxetine HCl 40 mg tablet 40 mg PO DAILY PRN anxiety 09/26/24 09/26/24 Unknown History topiramate 100 mg tablet 100 mg PO DAILY 09/26/24 09/26/24 Unknown History trazodone 50 mg tablet 50 mg PO HS PRN insomnia 09/26/24 09/26/24 Unknown History <Columba Magaña APRN - Last Filed: 09/28/24 19:04> Allergies/Adverse Reactions: Allergies Allergy/AdvReac Type Severity Reaction Status Date / Time No Known Allergies Allergy Verified 09/28/24 15:00 <Columba Magaña APRN - Last Filed: 09/28/24 19:04> Review of Systems Review of Systems: All systems reviewed & are unremarkable except as noted in HPI and below <Columba Magaña, ENVIRONMENTAL HEALTH TECHNOLOGIST - Last Filed: 09/28/24 19:04> PMFSH Past Medical History Medical History: Medical History (Updated 09/28/24 @ 13:53 by Chandrakant Palmer DO) Head lice Schizophrenia Bipolar affective disorder <Columba Magñaa, ENVIRONMENTAL HEALTH TECHNOLOGIST - Last Filed: 09/28/24 19:04> Surgical History Surgical History: Surgical History History of History of tubal ligation <Columba Magaña, ENVIRONMENTAL HEALTH TECHNOLOGIST - Last Filed: 09/28/24 19:04> Family History Family History: Family History Father Diabetes mellitus Mother Cancer of stomach Other Patient's mother is <Columba Magaña APRN - Last Filed: 09/28/24 19:04> Social History Social History: Social History Smoking status: Never smoker Alcohol intake: never Substance use: never Substance use type: does not use Do You Feel Safe in your Home?: Yes Lack of Transportation: No Lack of Food: Never True Current Housing: I Have Housing Concerned About Future Housing: No Difficulty Paying Gas/Electric Bills: No Difficulty Paying for Meds: No Currently Unemployed: No Education: High School Diploma/GED Difficulty w/ Childcare or Family Care: No Living arrangements: with family Gender identity (if verbalized by the patient): Female Sexual Orientation (if Verbalized by the Patient): Straight or Heterosexual Spiritual care concerns: No <Columba Magaña APRN - Last Filed: 09/28/24 19:04> Exam Narrative: GENERAL: Well appearing, well-nourished, non-toxic, in no acute distress. HEAD: Normocephalic, atraumatic. NECK: Supple. No adenopathy, no masses. RESPIRATORY: Airway patent, respirations nonlabored. Clear to auscultation bilaterally, no rales, rhonchi, wheezing. CARDIOVASCULAR: Regular rate and rhythm without murmurs, rubs, or gallops. Peripheral pulses 2+ and equal bilaterally. ABDOMINAL: Soft, mildly tender, nondistended, no hepatosplenomegaly. Normoactive BS. MUSCULOSKELETAL: Moves all extremities. Strength/ROM intact without gross deformities. SKIN: Warm, dry, normal color. No rashes. NEURO: A&O X3. Speech clear. Cranial nerves II-XII intact. No ataxic movements. PSYCHIATRIC: Appropriate mood and affect. Normal interaction. <Columba Magaña APRN - Last Filed: 09/28/24 19:04> Course REVENUE INVESTIGATOR/PA Physician Supervision For this patient encounter, I reviewed the REVENUE INVESTIGATOR or PA documentation, treatment plan, and medical decision making; and I had [id number] time with this patient. <Roland Leo MD - Last Filed: 09/26/24 17:25> Vital Signs Vital signs: Vital Signs Temperature 36.9 C 09/26/24 14:09 Pulse Rate 81 09/26/24 14:09 Respiratory Rate 18 09/26/24 14:09 Blood Pressure 151/128 H 09/26/24 14:09 Pulse Oximetry 97 09/26/24 14:09 Oxygen Delivery Room Air 09/26/24 14:09 Temperature 36.4 C 09/28/24 18:45 Pulse Rate 60 09/28/24 18:45 Respiratory Rate 16 09/28/24 18:45 Blood Pressure 111/66 09/28/24 18:45 Pulse Oximetry 99 09/28/24 18:45 Oxygen Delivery Room Air 09/28/24 18:10 Oxygen Flow Rate 8 09/28/24 17:11 <Columba Magaña APRN - Last Filed: 09/28/24 19:04> Vital Signs Temperature 36.9 C 09/26/24 14:09 Pulse Rate 81 09/26/24 14:09 Respiratory Rate 18 09/26/24 14:09 Blood Pressure 151/128 H 09/26/24 14:09 Pulse Oximetry 97 09/26/24 14:09 Oxygen Delivery Room Air 09/26/24 14:09 Temperature 36.4 C 09/28/24 18:45 Pulse Rate 60 09/28/24 18:45 Respiratory Rate 16 09/28/24 18:45 Blood Pressure 111/66 09/28/24 18:45 Pulse Oximetry 99 09/28/24 18:45 Oxygen Delivery Room Air 09/28/24 18:10 Oxygen Flow Rate 8 09/28/24 17:11 <Roland Leo MD - Last Filed: 09/26/24 17:25> MDM - Abdominal Pain MDM Narrative Medical decision making narrative: Patient is a 34-year-old female who presents to the ER with abdominal pain that started several days ago. She was seen in the ER three days ago and sent home on pain medications and oral antibiotics as pt wanted to try to manage her symptoms as an outpatient, but reports they didn't work. Patient reports she has been vomiting and had diarrhea with the most recent episode happening immediately prior to arrival. She also reports today she is unable to urinate and has had intermittent fevers. Patient denies any alcohol or illicit drug use. She denies any pertinent medical history, but reports she has been taking her medications as prescribed. Pt denies any chest pain, shortness of breath, or leg swelling. *Pt reports she tried to follow-up with general surgery as advised but she reports they don't take my insurance. Labs Ordered: CBC, CMP, UA, lactic acid, blood sugar, lipase Imaging Ordered: CT abdomen pelvis Medications Ordered: 2 L normal saline IV bolus, potassium chloride PO, Zofran, Zosyn IV, Dilaudid 0.5 mg IV Results: Patient's CT abdomen pelvis scan indicates Acute cholecystitis, as detailed above. Significant surrounding inflammatory change, extending into the hepatic flexure the colon. Diagnosis: Cholecystitis Consults: Spoke with general surgery, Dr. Rodriguez, who requests pt be admitted to the hospital with IV antibiotics (Zosyn), pain control (Ibuprofen PO and Morphine IV), and on a clear liquid diet. Report of CT scan and lab work shared with patient. It was advised patient be admitted to the hospital. She verbalized the understanding and is in agreement with plan. Spoke with hospitalist, Kevin MCMANUS, who is in agreement with plan for admission. Pt will be admitted to the med/surg floor. <Columba Magaña APRN - Last Filed: 09/28/24 19:04> Differential Diagnosis Differential diagnosis: Likely acute appendicitis, diverticulitis, pancreatitis and small bowel obstruction <Columba Magaña APRN - Last Filed: 09/28/24 19:04> Lab Data Attestation: I reviewed the patient's lab results. <Columba Magaña APRN - Last Filed: 09/28/24 19:04> Result diagrams: 09/28/24 05:11 09/28/24 05:11 <Columba Magaña APRN - Last Filed: 09/28/24 19:04> Labs: Lab Results 09/26/24 09/26/24 09/26/24 Range/Units 14:25 14:26 16:54 WBC 5.7 (4.5-10.0) K/mm3 RBC 3.54 L (4.2-5.4) M/mm3 Hgb 10.7 L (12.0-15.0) g/dL Hct 31.9 L (37.0-47.0) % MCV 90.1 (80-100) fl MCH 30.2 (26-34) pg MCHC 33.5 (32-36) g/dl RDW 12.6 (11.5-14.5) % Plt Count 135 L (150-375) k/mm3 MPV 11.5 H (7.4-10.4) fl Immature Gran % (Auto) 0.5 (0-0.5) % Neut % (Auto) 77.5 H (45.5-73.1) % Lymph % (Auto) 13.4 L (18.3-44.2) % [place] % (Auto) 7.0 (2.6-8.5) % Eos % (Auto) 1.4 (0-4.4) % Baso % (Auto) 0.2 (0.2-1.2) % Lymph # (Auto) 0.77 L (0.9-3.2) K/mm3 [place] # (Auto) 0.4 (0.1-0.6) K/mm3 Eos # (Auto) 0.1 (0-0.3) K/mm3 Baso # (Auto) 0.0 (0.0-0.1) K/mm3 Abs Immat Gran (auto) 0.03 (0.00-0.031) K/mm3 Absolute Neuts (auto) 4.4 (1.3-6.7) K/mm3 Absolute Nucleated RBC 0.000 (0.0-0.012) K/mm3 Nucleated RBC % 0.0 (0.0-0.2) % Sodium 139 (137-145) mmol/L Potassium 3.1 L (3.4-5.0) mmol/L Chloride 109 H (98-107) mmol/L Carbon Dioxide 22 (22-30) mmol/L Anion Gap 8 (4-12) mmol/L BUN 7 D (7-17) mg/dL Creatinine 0.51 L (0.7-1.0) mg/dL Estim Creat Clear Calc Not Reportable Estimated GFR > 60 (59 - ) Glucose 98 (65-110) mg/dL Lactic Acid 0.8 (0.7-2.0) mmol/L Calcium 8.8 (8.4-10.2) mg/dL Magnesium 2.2 (1.6-2.3) mg/dL Iron 17 L (37-170) ug/dL TIBC 270 (261-462) ug/dL % Saturation 6 L (20-50) % Ferritin 161.00 H (6.24-137) ng/mL Total Bilirubin 0.3 (0.2-1.3) mg/dL AST 27 (14-36) U/L ALT 64 H (6-35) U/L Alkaline Phosphatase 154 H (38-126) U/L C-Reactive Protein (<1.0) mg/dL Total Protein 6.6 (6.3-8.2) g/dL Albumin 3.3 L (3.5-5.1) g/dL Lipase 26 (23-300) U/L Vitamin B12 879.0 (239-931) pg/mL Folate 7.3 (2.76->20) ng/mL Urine Color Yellow (Yellow) Urine Appearance Clear (Clear) Urine pH 6.0 (5.0-9.0) Ur Specific [place] > 1.045 H (1.001-1.035) Urine Protein 1+ H (Negative) mg/dL Urine Glucose (UA) Negative (Negative) mg/dL Urine Ketones Trace H (Negative) mg/dL Ur Blood (Man) 2+ H (Negative) Urine Nitrate Negative (Negative) Urine Bilirubin Negative (Negative) Urine Urobilinogen 1.0 (<2.0) mg/dL Leukocyte Esterase Rfl Negative (Negative) LALITO/UL Urine RBC 0-2 (0-2) /hpf Urine WBC 0-5 (0-3) /hpf Ur Squamous Epith Cells Occasional (Few) /hpf Urine Bacteria Rare /hpf Urine Casts 0-2 Blood Type Antibody Screen 09/27/24 09/27/24 09/28/24 Range/Units 04:43 16:45 05:11 WBC 3.5 L 2.3 L (4.5-10.0) K/mm3 RBC 3.15 L 2.94 L (4.2-5.4) M/mm3 Hgb 9.4 L 8.8 L (12.0-15.0) g/dL Hct 29.3 L 27.8 L (37.0-47.0) % MCV 93.0 94.6 (80-100) fl MCH 29.8 29.9 (26-34) pg MCHC 32.1 31.7 L (32-36) g/dl RDW 12.8 12.8 (11.5-14.5) % Plt Count 123 L 107 L (150-375) k/mm3 MPV 11.5 H 11.2 H (7.4-10.4) fl Immature Gran % (Auto) 0.3 1.3 H (0-0.5) % Neut % (Auto) 70.9 55.9 (45.5-73.1) % Lymph % (Auto) 18.2 L 30.5 (18.3-44.2) % [place] % (Auto) 8.0 8.4 (2.6-8.5) % Eos % (Auto) 2.3 3.5 (0-4.4) % Baso % (Auto) 0.3 0.4 (0.2-1.2) % Lymph # (Auto) 0.64 L 0.69 L (0.9-3.2) K/mm3 [place] # (Auto) 0.3 0.2 (0.1-0.6) K/mm3 Eos # (Auto) 0.1 0.1 (0-0.3) K/mm3 Baso # (Auto) 0.0 0.0 (0.0-0.1) K/mm3 Abs Immat Gran (auto) 0.01 0.03 (0.00-0.031) K/mm3 Absolute Neuts (auto) 2.5 1.3 (1.3-6.7) K/mm3 Absolute Nucleated RBC 0.000 0.000 (0.0-0.012) K/mm3 Nucleated RBC % 0.0 0.0 (0.0-0.2) % Sodium 143 140 (137-145) mmol/L Potassium 3.6 3.3 L (3.4-5.0) mmol/L Chloride 113 H 113 H (98-107) mmol/L Carbon Dioxide 24 24 (22-30) mmol/L Anion Gap 6 3 L (4-12) mmol/L BUN 4 L 3 L (7-17) mg/dL Creatinine 0.54 L 0.47 L (0.7-1.0) mg/dL Estim Creat Clear Calc 131 148 Estimated GFR > 60 > 60 (59 - ) Glucose 96 91 (65-110) mg/dL Lactic Acid (0.7-2.0) mmol/L Calcium 8.2 L 8.3 L (8.4-10.2) mg/dL Magnesium (1.6-2.3) mg/dL Iron (37-170) ug/dL TIBC (261-462) ug/dL % Saturation (20-50) % Ferritin (6.24-137) ng/mL Total Bilirubin 0.4 0.3 (0.2-1.3) mg/dL AST 63 H 44 H (14-36) U/L ALT 84 H 64 H (6-35) U/L Alkaline Phosphatase 185 H 154 H (38-126) U/L C-Reactive Protein 15.5 H 6.7 H (<1.0) mg/dL Total Protein 5.9 L 5.6 L (6.3-8.2) g/dL Albumin 2.9 L 2.8 L (3.5-5.1) g/dL Lipase (23-300) U/L Vitamin B12 (239-931) pg/mL Folate (2.76->20) ng/mL Urine Color (Yellow) Urine Appearance (Clear) Urine pH (5.0-9.0) Ur Specific [place] (1.001-1.035) Urine Protein (Negative) mg/dL Urine Glucose (UA) (Negative) mg/dL Urine Ketones (Negative) mg/dL Ur Blood (Man) (Negative) Urine Nitrate (Negative) Urine Bilirubin (Negative) Urine Urobilinogen (<2.0) mg/dL Leukocyte Esterase Rfl (Negative) LALITO/UL Urine RBC (0-2) /hpf Urine WBC (0-3) /hpf Ur Squamous Epith Cells (Few) /hpf Urine Bacteria /hpf Urine Casts Blood Type O Positive Antibody Screen Negative <Columba Magaña, ENVIRONMENTAL HEALTH TECHNOLOGIST - Last Filed: 09/28/24 19:04> Lab Results 09/26/24 09/26/24 09/26/24 Range/Units 14:25 14:26 16:54 WBC 5.7 (4.5-10.0) K/mm3 RBC 3.54 L (4.2-5.4) M/mm3 Hgb 10.7 L (12.0-15.0) g/dL Hct 31.9 L (37.0-47.0) % MCV 90.1 (80-100) fl MCH 30.2 (26-34) pg MCHC 33.5 (32-36) g/dl RDW 12.6 (11.5-14.5) % Plt Count 135 L (150-375) k/mm3 MPV 11.5 H (7.4-10.4) fl Immature Gran % (Auto) 0.5 (0-0.5) % Neut % (Auto) 77.5 H (45.5-73.1) % Lymph % (Auto) 13.4 L (18.3-44.2) % [place] % (Auto) 7.0 (2.6-8.5) % Eos % (Auto) 1.4 (0-4.4) % Baso % (Auto) 0.2 (0.2-1.2) % Lymph # (Auto) 0.77 L (0.9-3.2) K/mm3 [place] # (Auto) 0.4 (0.1-0.6) K/mm3 Eos # (Auto) 0.1 (0-0.3) K/mm3 Baso # (Auto) 0.0 (0.0-0.1) K/mm3 Abs Immat Gran (auto) 0.03 (0.00-0.031) K/mm3 Absolute Neuts (auto) 4.4 (1.3-6.7) K/mm3 Absolute Nucleated RBC 0.000 (0.0-0.012) K/mm3 Nucleated RBC % 0.0 (0.0-0.2) % Sodium 139 (137-145) mmol/L Potassium 3.1 L (3.4-5.0) mmol/L Chloride 109 H (98-107) mmol/L Carbon Dioxide 22 (22-30) mmol/L Anion Gap 8 (4-12) mmol/L BUN 7 D (7-17) mg/dL Creatinine 0.51 L (0.7-1.0) mg/dL Estim Creat Clear Calc Not Reportable Estimated GFR > 60 (59 - ) Glucose 98 (65-110) mg/dL Lactic Acid 0.8 (0.7-2.0) mmol/L Calcium 8.8 (8.4-10.2) mg/dL Magnesium 2.2 (1.6-2.3) mg/dL Iron 17 L (37-170) ug/dL TIBC 270 (261-462) ug/dL % Saturation 6 L (20-50) % Ferritin 161.00 H (6.24-137) ng/mL Total Bilirubin 0.3 (0.2-1.3) mg/dL AST 27 (14-36) U/L ALT 64 H (6-35) U/L Alkaline Phosphatase 154 H (38-126) U/L C-Reactive Protein (<1.0) mg/dL Total Protein 6.6 (6.3-8.2) g/dL Albumin 3.3 L (3.5-5.1) g/dL Lipase 26 (23-300) U/L Vitamin B12 879.0 (239-931) pg/mL Folate 7.3 (2.76->20) ng/mL Urine Color Yellow (Yellow) Urine Appearance Clear (Clear) Urine pH 6.0 (5.0-9.0) Ur Specific [place] > 1.045 H (1.001-1.035) Urine Protein 1+ H (Negative) mg/dL Urine Glucose (UA) Negative (Negative) mg/dL Urine Ketones Trace H (Negative) mg/dL Ur Blood (Man) 2+ H (Negative) Urine Nitrate Negative (Negative) Urine Bilirubin Negative (Negative) Urine Urobilinogen 1.0 (<2.0) mg/dL Leukocyte Esterase Rfl Negative (Negative) LALITO/UL Urine RBC 0-2 (0-2) /hpf Urine WBC 0-5 (0-3) /hpf Ur Squamous Epith Cells Occasional (Few) /hpf Urine Bacteria Rare /hpf Urine Casts 0-2 Blood Type Antibody Screen 09/27/24 09/27/24 09/28/24 Range/Units 04:43 16:45 05:11 WBC 3.5 L 2.3 L (4.5-10.0) K/mm3 RBC 3.15 L 2.94 L (4.2-5.4) M/mm3 Hgb 9.4 L 8.8 L (12.0-15.0) g/dL Hct 29.3 L 27.8 L (37.0-47.0) % MCV 93.0 94.6 (80-100) fl MCH 29.8 29.9 (26-34) pg MCHC 32.1 31.7 L (32-36) g/dl RDW 12.8 12.8 (11.5-14.5) % Plt Count 123 L 107 L (150-375) k/mm3 MPV 11.5 H 11.2 H (7.4-10.4) fl Immature Gran % (Auto) 0.3 1.3 H (0-0.5) % Neut % (Auto) 70.9 55.9 (45.5-73.1) % Lymph % (Auto) 18.2 L 30.5 (18.3-44.2) % [place] % (Auto) 8.0 8.4 (2.6-8.5) % Eos % (Auto) 2.3 3.5 (0-4.4) % Baso % (Auto) 0.3 0.4 (0.2-1.2) % Lymph # (Auto) 0.64 L 0.69 L (0.9-3.2) K/mm3 [place] # (Auto) 0.3 0.2 (0.1-0.6) K/mm3 Eos # (Auto) 0.1 0.1 (0-0.3) K/mm3 Baso # (Auto) 0.0 0.0 (0.0-0.1) K/mm3 Abs Immat Gran (auto) 0.01 0.03 (0.00-0.031) K/mm3 Absolute Neuts (auto) 2.5 1.3 (1.3-6.7) K/mm3 Absolute Nucleated RBC 0.000 0.000 (0.0-0.012) K/mm3 Nucleated RBC % 0.0 0.0 (0.0-0.2) % Sodium 143 140 (137-145) mmol/L Potassium 3.6 3.3 L (3.4-5.0) mmol/L Chloride 113 H 113 H (98-107) mmol/L Carbon Dioxide 24 24 (22-30) mmol/L Anion Gap 6 3 L (4-12) mmol/L BUN 4 L 3 L (7-17) mg/dL Creatinine 0.54 L 0.47 L (0.7-1.0) mg/dL Estim Creat Clear Calc 131 148 Estimated GFR > 60 > 60 (59 - ) Glucose 96 91 (65-110) mg/dL Lactic Acid (0.7-2.0) mmol/L Calcium 8.2 L 8.3 L (8.4-10.2) mg/dL Magnesium (1.6-2.3) mg/dL Iron (37-170) ug/dL TIBC (261-462) ug/dL % Saturation (20-50) % Ferritin (6.24-137) ng/mL Total Bilirubin 0.4 0.3 (0.2-1.3) mg/dL AST 63 H 44 H (14-36) U/L ALT 84 H 64 H (6-35) U/L Alkaline Phosphatase 185 H 154 H (38-126) U/L C-Reactive Protein 15.5 H 6.7 H (<1.0) mg/dL Total Protein 5.9 L 5.6 L (6.3-8.2) g/dL Albumin 2.9 L 2.8 L (3.5-5.1) g/dL Lipase (23-300) U/L Vitamin B12 (239-931) pg/mL Folate (2.76->20) ng/mL Urine Color (Yellow) Urine Appearance (Clear) Urine pH (5.0-9.0) Ur Specific [place] (1.001-1.035) Urine Protein (Negative) mg/dL Urine Glucose (UA) (Negative) mg/dL Urine Ketones (Negative) mg/dL Ur Blood (Man) (Negative) Urine Nitrate (Negative) Urine Bilirubin (Negative) Urine Urobilinogen (<2.0) mg/dL Leukocyte Esterase Rfl (Negative) LALITO/UL Urine RBC (0-2) /hpf Urine WBC (0-3) /hpf Ur Squamous Epith Cells (Few) /hpf Urine Bacteria /hpf Urine Casts Blood Type O Positive Antibody Screen Negative <Roland Leo MD - Last Filed: 09/26/24 17:25> Imaging Data Attestation: I personally reviewed and interpreted this imaging study as follows: <Columba Magaña APRN - Last Filed: 09/28/24 19:04> Radiologist's impression: ITS Impressions Abdomen/Pelvis CT 09/26/24 16:14 IMPRESSION: Acute cholecystitis, as detailed above. Significant surrounding inflammatory change, extending into the hepatic flexure the colon. Abdomen Ultrasound 09/26/24 17:43 IMPRESSION: Acute cholecystitis, as detailed above. No common bile duct dilatation. Hepatomegaly. Hepatobiliary Scan Nuclear Medicine 09/27/24 14:57 IMPRESSION: 1. No evident gallbladder activity consistent with acute cholecystitis. <Columba Magaña ENVIRONMENTAL HEALTH TECHNOLOGIST - Last Filed: 09/28/24 19:04> ITS Impressions Abdomen/Pelvis CT 09/26/24 16:14 IMPRESSION: Acute cholecystitis, as detailed above. Significant surrounding inflammatory change, extending into the hepatic flexure the colon. Abdomen Ultrasound 09/26/24 17:43 IMPRESSION: Acute cholecystitis, as detailed above. No common bile duct dilatation. Hepatomegaly. Hepatobiliary Scan Nuclear Medicine 09/27/24 14:57 IMPRESSION: 1. No evident gallbladder activity consistent with acute cholecystitis. <Roland Leo MD - Last Filed: 09/26/24 17:25> Discharge Plan Discharge Clinical Impression: Cholecystitis <Columba Magaña APRN - Last Filed: 09/28/24 19:04> Patient Disposition: Still a Patient <Columba Magñaa APRN - Last Filed: 09/28/24 19:04> Condition: Serious <Columba Magaña APRN - Last Filed: 09/28/24 19:04>
--- NOTE | 2024-09-26 14:06 | ECG_ITS ---
Test Date: 2024-09-26 14:10:57 Measurements Intervals [place] Rate: 84 P: 14 SD: 112 QRS: 18 QRSD: 95 T: 1 QT: 391 QTc: 464 Interpretive Statements SINUS RHYTHM WITH SHORT SD INTERVAL LOW QRS VOLTAGE IN PRECORDIAL LEADS BORDERLINE ST-T WAVE ABNORMALITY- INFERIOR LEADS BASELINE ARTIFACT- I, II BORDERLINE ECG Compared to ECG 09/22/2024 22:33:24 Short SD interval now present Electronically Signed On 09-26-2024 17:17:17 CDT by Cyrus Baires D.O.
[2024-09-26 14:09] VITALS: BP 151/128; PULSE 81; RESP 18; TEMP 36.9; O2SAT 97
[2024-09-26] MEDS: ONDANSETRON INJ 4 MG/2 ML VIAL IV PUSH ×2 (14:33→20:56)
[2024-09-26] MEDS: HYDROmorphone HCL INJ (*CRX) 2 MG/ML VIAL 0.5 MG IV PUSH (14:33)
[2024-09-26 14:34] LABS: Basophils Percent Auto 0.2 % (0.2-1.2); Eosinophils Absolute Auto 0.1 K/mm3 (0-0.3); Eosinophils Percent Auto 1.4 % (0-4.4); Hematocrit 31.9 % (37.0-47.0); Hemoglobin 10.7 g/dL (12.0-15.0); Immature Granulocyte Absolute 0.03 K/mm3 (0.00-0.031); Immature Granulocyte Percent A 0.5 % (0-0.5); Lymphocytes Absolute Auto 0.77 K/mm3 (0.9-3.2); Lymphocytes Percent Auto 13.4 % (18.3-44.2); Mean Corpuscular HGB Conc 33.5 g/dl (32-36); Mean Corpuscular Hemoglobin 30.2 pg (26-34); Mean Corpuscular Volume 90.1 fl (80-100); Mean Platelet Volume 11.5 fl (7.4-10.4); Monocytes Absolute Auto 0.4 K/mm3 (0.1-0.6); Neutrophils Absolute Auto 4.4 K/mm3 (1.3-6.7); Neutrophils Percent Auto 77.5 % (45.5-73.1); Platelet Count Result 135 k/mm3 (150-375); Red Blood Count 3.54 M/mm3 (4.2-5.4); Red Cell Distribution Width 12.6 % (11.5-14.5); White Blood Count 5.7 K/mm3 (4.5-10.0)
[2024-09-26] MEDS: SODIUM CHLORIDE 0.9% IV 1,000 ML 999 ML IV CONT ×2 (14:34→16:52)
[2024-09-26] MEDS: PIPERACILLN/TAZ 3.375GM/NS50ML 3.375 GM/50 ML BAG IVPB ×2 (14:34→21:26)
[2024-09-26 14:35] VITALS: BP 106/52; PULSE 89; RESP 18; O2SAT 98
[2024-09-26 14:42] LABS: Lactic Acid Reflex 0.8 mmol/L (0.7-2.0)
[2024-09-26 14:43] LABS: Alanine Aminotransferase 64 U/L (6-35); Albumin Level 3.3 g/dL (3.5-5.1); Alkaline Phosphatase 154 U/L (38-126); Anion Gap 8 mmol/L (4-12); Aspartate Amino Transferase 27 U/L (14-36); Bilirubin,Total 0.3 mg/dL (0.2-1.3); Blood Urea Nitrogen 7 mg/dL (7-17); Calcium 8.8 mg/dL (8.4-10.2); Carbon Dioxide 22 mmol/L (22-30); Chloride 109 mmol/L (98-107); Estimated Glomerular Filt Rate > 60; Glucose 98 mg/dL (65-110); Lipase 26 U/L (23-300); Potassium 3.1 mmol/L (3.4-5.0); Sodium 139 mmol/L (137-145); Total Protein 6.6 g/dL (6.3-8.2)
[2024-09-26] MEDS: POTASSIUM CHLORIDE 20 MEQ ER TABLET 40 MEQ PO (16:53)
[2024-09-26 17:13] LABS: Add Urine Microscopic? YES; Appearance Urine Clear (Clear); Bacteria Urine Rare /hpf; Bilirubin Urine Negative (Negative); Blood Urine 2+ (Negative); Color Urine Yellow (Yellow); Glucose Urine UA Negative (Negative); Ketones Urine Trace mg/dL (Negative); Leukocyte Esterase Ur Negative LEU/UL (Negative); Nitrate Urine Negative (Negative); Non Pathogenic Casts 0-2; Protein Urine 1+ mg/dL (Negative); RBC Urine 0-2 /hpf (0-2); Specific Grav Ur > 1.045 (1.001-1.035); Squamous Epithelial Cell Urine Occasional /hpf (Few); WBC Urine 0-5 /hpf (0-3)
--- NOTE | 2024-09-26 17:33 | PM.IMHP ---
H&P: HPI History of Present Illness Date/Time: 09/26/24 17:33 Chief Complaint: Abdominal pain, nausea and vomiting, cholecystitis Narrative: This is a 34-year-old female patient who reports that she started having upper abdominal pain nausea and vomiting on 09/21 in she went to be seen another facility where she was told nothing was wrong. The next day on 09/22 patient came to this ER had a CT scan and lab work done initial read on CT scan was no acute abnormality, later over-read by local radiologist with findings of gallbladder distension and possible obstructing stone at the neck of the gallbladder. Patient states she was not made aware of change in imaging read. Today she returned to this ER still complaining of upper abdominal pain and nausea/vomiting. Labs today still normal WBC though there is now a mild increase in ALK PHOS and ALT with normal AST and normal bilirubin. CT scan was repeated today with findings concerning for acute cholecystitis with thickening of gallbladder wall and pericholecystic fluid as well as inflammation extending to the hepatic flexure of the colon. Patient received IV fluids, pain/nausea medication and IV Zosyn. General Surgery will consult on patient tomorrow. We will give clear liquids now then NPO after 0300. HIDA scan has been ordered by General Surgery for the morning. Review of Systems Review of Systems: All systems reviewed & are unremarkable except as noted in HPI and below PMFSH Past Medical History Medical History Schizophrenia Bipolar affective disorder Surgical History Surgical History History of History of tubal ligation Family History Family History (Updated 09/26/24 @ 20:23 by Larisa Chiang RN) Father Diabetes mellitus Mother Cancer of stomach Other Patient's mother is Social History Social History Smoking status: Never smoker Alcohol intake: never Substance use: never Substance use type: does not use Do You Feel Safe in your Home?: Yes Lack of Transportation: No Lack of Food: Never True Current Housing: I Have Housing Concerned About Future Housing: No Difficulty Paying Gas/Electric Bills: No Difficulty Paying for Meds: No Currently Unemployed: No Education: High School Diploma/GED Difficulty w/ Childcare or Family Care: No Living arrangements: with family Gender identity (if verbalized by the patient): Female Sexual Orientation (if Verbalized by the Patient): Straight or Heterosexual Spiritual care concerns: No Meds Home Medications and Allergies Home Medications ?Medication ?Instructions ?Recorded ?Confirmed ?Type meloxicam 15 mg tablet 15 mg PO DAILY #15 tabs 07/18/24 09/26/24 Rx acetaminophen 500 mg tablet 1,000 mg (2 x 500 mg) PO .q8 PRN 09/23/24 09/26/24 Rx (Acetaminophen Extra Strength) fever or pain #60 tabs ibuprofen 800 mg tablet 800 mg PO TID PRN pain (scale 09/23/24 09/26/24 Rx score 4-6) #60 tabs paroxetine HCl 40 mg tablet 40 mg PO DAILY PRN anxiety 09/26/24 09/26/24 History topiramate 100 mg tablet 100 mg PO DAILY 09/26/24 09/26/24 History trazodone 50 mg tablet 50 mg PO HS PRN insomnia 09/26/24 09/26/24 History Allergies Allergy/AdvReac Type Severity Reaction Status Date / Time No Known Allergies Allergy Verified 09/22/24 22:15 Vital Signs Vital Signs - 24 hr 09/26/24 14:09 09/26/24 14:35 Temperature 36.9 C Pulse Rate 81 89 Respiratory Rate 18 18 Blood Pressure 151/128 H 106/52 L Pulse Oximetry 97 98 Oxygen Delivery Room Air Exam Narrative: GENERAL: Well appearing, well-nourished, non-toxic, in no acute distress. HEAD: Normocephalic, atraumatic. Head lice identified. NECK: Supple. No adenopathy, no masses. RESPIRATORY: Airway patent, respirations nonlabored. Clear to auscultation bilaterally, no rales, rhonchi, wheezing. CARDIOVASCULAR: Regular rate and rhythm without murmurs, rubs, or gallops. Peripheral pulses 2+ and equal bilaterally. ABDOMINAL: Soft with RUQ tenderness to palpation and mild guarding, otherwise non-tender MUSCULOSKELETAL: Moves all extremities. Strength/ROM intact without gross deformities. SKIN: Warm, dry, normal color. No rashes. NEURO: A&O X3. Speech clear. Cranial nerves II-XII intact. No ataxic movements. PSYCHIATRIC: Appropriate mood and affect. Normal interaction. H&P: Results Labs Labs: Short CBC 09/26/24 Range/Units 14:26 WBC 5.7 (4.5-10.0) K/mm3 Hgb 10.7 L (12.0-15.0) g/dL Hct 31.9 L (37.0-47.0) % Plt Count 135 L (150-375) k/mm3 BMP 09/26/24 14:26 Sodium 139 Potassium 3.1 L Chloride 109 H Carbon Dioxide 22 BUN 7 D Creatinine 0.51 L Glucose 98 Calcium 8.8 Liver Function 09/26/24 Range/Units 14:26 Total Bilirubin 0.3 (0.2-1.3) mg/dL AST 27 (14-36) U/L ALT 64 H (6-35) U/L Alkaline Phosphatase 154 H (38-126) U/L Albumin 3.3 L (3.5-5.1) g/dL Urine 09/26/24 Range/Units 16:54 Urine Color Yellow (Yellow) Urine Appearance Clear (Clear) Urine pH 6.0 (5.0-9.0) Ur Specific [place] > 1.045 H (1.001-1.035) Urine Protein 1+ H (Negative) mg/dL Urine Glucose (UA) Negative (Negative) mg/dL Pulse Oximetry SpO2 results: 97-100% on room air Attestation: I personally reviewed and interpreted this pulse oximetry as follows: Interpretation: No need for supplemental oxygenation at this time ECG Attestation: I personally reviewed and interpreted this ECG as follows: ECG completion date: 09/26/24 ECG completion time: 14:10 Prior ECG tracings: available for review Interpretation: Sinus rhythm rate of 84 with short SD 112 QRS duration 95 QTC 464 QRS axis 18? inversion in T-waves of lead 3, V2, and V3, no STEMI Imaging CT scan - abdomen: Radiologist's impression: CLINICAL INDICATION: Abdominal pain, vomiting and diarrhea. COMPARISON: . TECHNIQUE: Multiple contiguous axial images of the abdomen and pelvis were performed following the administration of with 100 mL Omnipaque-350 intravenous contrast The dose-length product (DLP) was 1093.40 mGy-cm. Automated exposure control and iterative reconstruction technique were employed. FINDINGS/OBSERVATIONS: Visualized lower thorax: The bilateral lung bases are clear. The heart is of normal size, without pericardial effusion. Small hiatal hernia is present. Liver: The liver demonstrates homogeneous enhancement and is enlarged measuring 23 cm in longitudinal dimension. Gallbladder and biliary system: Redemonstration of gallbladder distention, now with mural thickening and pericholecystic fluid, an interval change. The inflammation extends to the hepatic flexure of colon Pancreas: The pancreas enhances homogeneously without ductal dilatation. Spleen: The spleen enhances homogeneously and is not enlarged. Kidneys: The bilateral kidneys enhance symmetrically without hydronephrosis or renal calculi. Adrenal glands: Unremarkable. Gastrointestinal tract: Colonic diverticulosis without surrounding inflammatory change. Trace fecal stasis within the colon. Appendix: The air-filled appendix is of normal caliber (axial series, images 120 - 133). Vasculature: Unremarkable. Lymph nodes: No pathologically enlarged or morphologically suspicious lymph nodes within the retroperitoneum or at the root of the mesentery. Pelvic structures: The bladder is minimally distended, and otherwise unremarkable. The uterus is anteverted and anteflexed. Body wall and musculoskeletal: Small fat-containing umbilical hernia. No significant degenerative disease within the lower thoracic or lumbosacral spine. IMPRESSION: Acute cholecystitis, as detailed above. Significant surrounding inflammatory change, extending into the hepatic flexure the colon. Reviewed, dictated and finalized at location A. ON 09/23/2024 CT of the Abdomen and Pelvis: Indication: Abdominal pain Technique: 2.5 mm axial scans were obtained through the abdomen and pelvis following intravenous administration of 100 cc of Omnipaque 350. Dose reduction technique was used on this scan by utilizing automated exposure control and iterative reconstruction technique. The dose-length product (DLP) was 1345.34 mGy-cm. COMPARISON: 03/24/2024 Findings: Scans through the lung bases are unremarkable. The liver, spleen, pancreas, adrenals and kidneys are within normal limits. Gallbladder is markedly distended. Questionable subtle gallstone near the gallbladder neck. No definite gallbladder wall thickening. No evidence of aortic aneurysm. No lymphadenopathy. No bowel obstruction or bowel wall thickening. There is no evidence to suggest acute appendicitis. Images through the pelvis were performed. Urinary bladder unremarkable. No pelvic mass seen. No ascites. Impression: Markedly distended gallbladder with questionable subtle gallstone. No definite gallbladder wall thickening or inflammatory change. If clinical symptoms are felt to be referable to the gallbladder, then consider ultrasound and/or HIDA scan for further evaluation. Reviewed, dictated and finalized at location M. US - abdomen: Radiologist's impression: EXAM: ABDOMEN ULTRASOUND HISTORY: cholecystitis COMPARISON: 08/11/2019. Reference is also made to a CT examination of the abdomen and pelvis, performed the same day. FINDINGS: LIVER: The liver is increased in echogenicity and size measuring 23 cm in longitudinal dimension. The portal vein is patent, demonstrating hepatopedal flow. GALLBLADDER: The gallbladder is markedly distended and enlarged, consistent with hydrops with layering sludge and mural thickening. Trace surrounding free fluid is also noted caudal to the gallbladder. BILE DUCTS: Common bile duct measures 3.4mm. PANCREAS: Limited evaluation of the pancreas secondary to overlying bowel gas IMPRESSION: Acute cholecystitis, as detailed above. No common bile duct dilatation. Hepatomegaly. Reviewed, dictated and finalized at location A. Assessment and Plan Assessment and plan (1) Cholecystitis: Code(s): K81.9 - Cholecystitis, unspecified Status: Acute Assessment and Plan: -Seen in ER on 09/22 with abdominal pain, nausea, vomiting and chest pain that started the night before -Normal labs at that time with CT finding of distended gallbladder with possible shadow of stone near the GB neck -Patient reportedly started on Augmentin and told to follow up with Gen Surg or return to ER if worse -Patient denies antibiotic prescription was started -Patient back today with worsening of symptoms -Labs today with mild elevation of ALK PHOS and ALT, normal bilirubin -Repeat CT today shows significant inflammation and pericholecystic fluid surrounding gallbladder with inflammation extending to the bowel at the hepatic flexure, no significant free fluid noted -IV Zosyn given in ER -Ultrasound ordered in ER -General surgery ordered HIDA scan for the morning (2) Hypokalemia: Code(s): E87.6 - Hypokalemia Status: Acute Assessment and Plan: -Today patient with hypokalemia, still having nausea/vomiting and unable to keep down food/fluids well -Potassium replaced in ER along with pain medication and nausea medication (3) Head lice: Code(s): B85.0 - Pediculosis due to Pediculus humanus capitis Status: Acute Assessment and Plan: -Head lice identified on admit -Permetherin 5% ordered Quality VTE Prophylaxis VTE prophylaxis: mechanical ordered Hospitalist MIPS Advance Care Plan I have confirmed that the patient's Advanced Care Plan is present, code status is documented, or surrogate decision maker is listed in patient medical record.: Yes Medication Reconciliation I have utilized all available resources to obtain, update and review the patients current medications (includes all prescriptions, OTC, herbals, cannabis, and nutritional supplements).: Yes
[2024-09-26] MEDS: MORPHINE SULFATE (*CRX) 2 MG/ML INJ IV PUSH ×2 (17:49→20:54)
--- NOTE | 2024-09-26 18:37 | PC.NURSE ---
ER nurse informed RN that patient potentially has head lice. Patient will not allow [facility] to look.
[2024-09-26 19:38] LABS: Iron 17 ug/dL (37-170)
[2024-09-26 19:39] LABS: Magnesium 2.2 mg/dL (1.6-2.3)
[2024-09-26 19:48] LABS: Percent Iron Saturation 6 % (20-50)
[2024-09-26 20:10] VITALS: BMI 44.3
--- NOTE | 2024-09-26 20:10 | ADMGEN ---
This patient, Manisha Lundy, was admitted to 2 Medical Room 261-01. Patient/family oriented to hospital policies and general routines including ID bracelet, bed and alarms, visiting hours, pain management, procedures, bathroom and other care routines, personal items, smoking policy, room service/diet, and visiting hours. Information on how to activate the Rapid Response Team has been discussed. Patient/Family are encouraged to report perceived risks to care and to ask questions if they do not understand what they are told or what they should do.
[2024-09-26 20:46] LABS: Folic Acid 7.3 ng/mL (2.76->20)
[2024-09-26] MEDS: SODIUM CHLORIDE 0.9% IV 1,000 ML 70 ML IV CONT (20:56)
[2024-09-26 21:18] VITALS: BP 103/65; PULSE 73; RESP 20; TEMP 36.6; O2SAT 98
[2024-09-26] MEDS: IRON SUCROSE COMPLEX 400 MG in SODIUM CHLORIDE 0.9% IV 250 ML 108 MG IVPB (22:37)
[2024-09-26] MEDS: ENOXAPARIN 30 MG/0.3 ML SYRINGE SUB-Q (22:37)
[2024-09-26] MEDS: PERMETHRIN 1% LIQUID 59 ML BOTTLE 1 APPLIC TOPICAL (22:43)
[2024-09-27] MEDS: PIPERACILLN/TAZ 3.375GM/NS50ML 3.375 GM/50 ML BAG IVPB ×4 (02:51→20:58)
[2024-09-27 03:12] VITALS: BP 109/69; PULSE 72; RESP 20; TEMP 36.5; O2SAT 97
[2024-09-27 05:14] LABS: Basophils Percent Auto 0.3 % (0.2-1.2); Eosinophils Absolute Auto 0.1 K/mm3 (0-0.3); Eosinophils Percent Auto 2.3 % (0-4.4); Hematocrit 29.3 % (37.0-47.0); Hemoglobin 9.4 g/dL (12.0-15.0); Immature Granulocyte Absolute 0.01 K/mm3 (0.00-0.031); Immature Granulocyte Percent A 0.3 % (0-0.5); Lymphocytes Absolute Auto 0.64 K/mm3 (0.9-3.2); Lymphocytes Percent Auto 18.2 % (18.3-44.2); Mean Corpuscular HGB Conc 32.1 g/dl (32-36); Mean Corpuscular Hemoglobin 29.8 pg (26-34); Mean Platelet Volume 11.5 fl (7.4-10.4); Monocytes Absolute Auto 0.3 K/mm3 (0.1-0.6); Neutrophils Absolute Auto 2.5 K/mm3 (1.3-6.7); Neutrophils Percent Auto 70.9 % (45.5-73.1); Platelet Count Result 123 k/mm3 (150-375); Red Blood Count 3.15 M/mm3 (4.2-5.4); Red Cell Distribution Width 12.8 % (11.5-14.5); White Blood Count 3.5 K/mm3 (4.5-10.0)
[2024-09-27] MEDS: MORPHINE SULFATE (*CRX) 2 MG/ML INJ IV PUSH (05:25)
[2024-09-27 05:32] LABS: Alanine Aminotransferase 84 U/L (6-35); Albumin Level 2.9 g/dL (3.5-5.1); Alkaline Phosphatase 185 U/L (38-126); Anion Gap 6 mmol/L (4-12); Aspartate Amino Transferase 63 U/L (14-36); Bilirubin,Total 0.4 mg/dL (0.2-1.3); Blood Urea Nitrogen 4 mg/dL (7-17); Calcium 8.2 mg/dL (8.4-10.2); Carbon Dioxide 24 mmol/L (22-30); Chloride 113 mmol/L (98-107); Estimated CRCL calculation 131 ml/min; Estimated Glomerular Filt Rate > 60; Glucose 96 mg/dL (65-110); Potassium 3.6 mmol/L (3.4-5.0); Sodium 143 mmol/L (137-145); Total Protein 5.9 g/dL (6.3-8.2)
[2024-09-27 06:17] LABS: CRP 15.5 mg/dL (<1.0)
[2024-09-27] MEDS: ONDANSETRON INJ 4 MG/2 ML VIAL IV PUSH (06:26)
--- NOTE | 2024-09-27 06:40 | P.PNIM_ITS ---
Progress Note: A&P Assessment and Plan (1) Cholecystitis: Code(s): K81.9 - Cholecystitis, unspecified Status: Acute Assessment and Plan: Patient seen in ER on 09/22 -Seen in ER on 09/22 with abdominal pain, nausea, vomiting and chest pain that started the night before. During that ER visit she had normal labs with CT finding of distended gallbladder with possible gallstone. Started on Augmentin and told to follow up with Gen Surg or return to ER if worse - LFTs elevated: tot bili 0.4, AST 63, ALT 84, alk phos 185 - Repeat CT showed acute cholecystitis and significant surrounding inflammatory change, extending into the hepatic flexure of the colon - Abdomen US showed acute cholecystitis without CBD dilation - IV Zosyn started on 09/26 - Monitor vital signs, I and O's, check stool output, neuro status and patient is a fall risk - Monitor serum electrolytes and CBC - Monitor lactic acid - IV pain management - Gentle IV fluid resuscitation - Diet:NPO - Consult general surgery for further evaluation, appreciate assistance and recommendation Plan for HIDA (2) Hypokalemia: Code(s): E87.6 - Hypokalemia Status: Acute Assessment and Plan: -Hypokalemia on admission, likely secondary to ongoing nausea/vomiting and unable to keep down food/fluids well -Potassium replaced in ER along with pain medication and nausea medication -K 3.6 on am labs - Monitor (3) Head lice: Code(s): B85.0 - Pediculosis due to Pediculus humanus capitis Status: Acute Assessment and Plan: -Head lice identified on admit -Permetherin 5% ordered Time Spent With Patient Time with patient: 25 - 35 minutes Subjective Date/time seen: 09/27/24 06:40 Interval history: 34-year-old female patient with past medical history of schizophrenia and bipolar who presents to the hospital for worsening upper abdominal pain, nausea and vomiting. Patient is pleasant lying in bed. She states that pain is well controlled on the current regimen. She denies any nausea/vomiting. She has no other complaints denying chest pain, palpitations, and shortness of breath. Review of Systems Review of Systems: All systems reviewed & are unremarkable except as noted in HPI and below Exam Narrative: AF HR 77 RR 16 Spo2 97 BP 107/62 General: female in no acute respiratory distress who is nontoxic appearing, lying semi recumbent in bed. HEENT: Normocephalic. Atraumatic. Extraocular movement intact. Sclera clear and anicteric. No facial asymmetry. Chest: Lungs are clear to auscultation bilaterally. No wheezes or crackles. CV: Heart was regular rate and rhythm. Abd: Abdomen was soft. Tender RUQ. Nondistended. Positive bowel sounds. Ext: No clubbing, cyanosis, or edema. DP pulses bilaterally. Neuro: Patient is alert and oriented x3. Speech is clear. Objective Data Vital Signs Vital Signs: Vital Signs - 24 hr 09/26/24 14:09 09/26/24 14:35 09/26/24 21:18 Temperature 98.4 F 97.8 F Pulse Rate 81 89 73 Respiratory Rate 18 18 20 Blood Pressure 151/128 H 106/52 L 103/65 Pulse Oximetry 97 98 98 Oxygen Delivery Room Air 09/27/24 03:12 Temperature 97.7 F Pulse Rate 72 Respiratory Rate 20 Blood Pressure 109/69 Pulse Oximetry 97 Oxygen Delivery Intake/Output Intake/Output: Intake & Output 09/24/24 09/25/24 09/26/24 09/27/24 23:59 23:59 23:59 23:59 Intake Total 2100 0 Balance 2100 0 Meds/Results Medications: Active Medications Generic Name Dose Route Start Last Admin Trade Name Freq PRN Reason Stop Dose Admin Acetaminophen 1,000 mg 09/26/24 21:01 Acetaminophen 500 Mg Tablet PO Q8HR PRN fever or pain 1-3 Enoxaparin Sodium 30 mg 09/26/24 21:00 09/26/24 22:37 Enoxaparin 30 Mg/0.3 Ml Syringe SUB-Q 30 mg Q12HR FLORENTINO Administration Sodium Chloride 1,000 mls @ 70 mls/hr 09/26/24 17:15 09/26/24 20:56 Normal Saline Iv IV CONT 70 mls/hr .[id number] FLORENTINO Administration Piperacillin/Tazobactam/Dextrose 3.375 gm in 50 mls @ 100 mls/hr 09/26/24 21:00 09/27/24 02:51 Zosyn 3.375 Gm/Ns 50 Ml IVPB 100 mls/hr Q6H FLORENTINO Administration Ibuprofen 800 mg in 200 mls @ 400 mls/hr 09/26/24 20:09 Caldolor 800 Mg/200 Ml IVPB Q6H PRN Pain Rated 1-3 Morphine Sulfate 4 mg 09/26/24 17:15 Morphine Sulfate (*Crx) 4 Mg/Ml Inj IV PUSH Q2H PRN Pain Rated 7-10 Morphine Sulfate 2 mg 09/26/24 17:15 09/27/24 05:25 Morphine Sulfate (*Crx) 2 Mg/Ml Inj IV PUSH 2 mg Q2H PRN Administration Pain Rated 4-6 Ondansetron HCl 4 mg 09/26/24 17:15 09/27/24 06:26 Ondansetron Inj 4 Mg/2 Ml Vial IV PUSH 4 mg Q4H PRN Administration Nausea Paroxetine HCl 40 mg 09/26/24 20:11 Paroxetine 20 Mg Tablet PO DAILY PRN anxiety Topiramate 100 mg 09/27/24 09:00 Topiramate 100 Mg Tablet PO DAILY FLORENTINO Trazodone HCl 50 mg 09/26/24 20:11 Trazodone Hcl 50 Mg Tablet PO HS PRN insomnia Radiology Results: ITS Impressions Abdomen/Pelvis CT 09/26/24 16:14 IMPRESSION: Acute cholecystitis, as detailed above. Significant surrounding inflammatory change, extending into the hepatic flexure the colon. Abdomen Ultrasound 09/26/24 17:43 IMPRESSION: Acute cholecystitis, as detailed above. No common bile duct dilatation. Hepatomegaly. Labs Labs: Laboratory Results - last 24 hr 09/26/24 09/26/24 09/26/24 14:25 14:26 16:54 WBC 5.7 RBC 3.54 L Hgb 10.7 L Hct 31.9 L MCV 90.1 MCH 30.2 MCHC 33.5 RDW 12.6 Plt Count 135 L MPV 11.5 H Immature Gran % (Auto) 0.5 Neut % (Auto) 77.5 H Lymph % (Auto) 13.4 L Clarke % (Auto) 7.0 Eos % (Auto) 1.4 Baso % (Auto) 0.2 Lymph # (Auto) 0.77 L Clarke # (Auto) 0.4 Eos # (Auto) 0.1 Baso # (Auto) 0.0 Abs Immat Gran (auto) 0.03 Absolute Neuts (auto) 4.4 Absolute Nucleated RBC 0.000 Nucleated RBC % 0.0 Sodium 139 Potassium 3.1 L Chloride 109 H Carbon Dioxide 22 Anion Gap 8 BUN 7 D Creatinine 0.51 L Estim Creat Clear Calc Not Reportable Estimated GFR > 60 Glucose 98 Lactic Acid 0.8 Calcium 8.8 Magnesium 2.2 Iron 17 L TIBC 270 % Saturation 6 L Ferritin 161.00 H Total Bilirubin 0.3 AST 27 ALT 64 H Alkaline Phosphatase 154 H C-Reactive Protein Total Protein 6.6 Albumin 3.3 L Lipase 26 Vitamin B12 879.0 Folate 7.3 Urine Color Yellow Urine Appearance Clear Urine pH 6.0 Ur Specific Gilbert > 1.045 H Urine Protein 1+ H Urine Glucose (UA) Negative Urine Ketones Trace H Ur Blood (Man) 2+ H Urine Nitrate Negative Urine Bilirubin Negative Urine Urobilinogen 1.0 Leukocyte Esterase Rfl Negative Urine RBC 0-2 Urine WBC 0-5 Ur Squamous Epith Cells Occasional Urine Bacteria Rare Urine Casts 0-2 09/27/24 04:43 WBC 3.5 L RBC 3.15 L Hgb 9.4 L Hct 29.3 L MCV 93.0 MCH 29.8 MCHC 32.1 RDW 12.8 Plt Count 123 L MPV 11.5 H Immature Gran % (Auto) 0.3 Neut % (Auto) 70.9 Lymph % (Auto) 18.2 L Clarke % (Auto) 8.0 Eos % (Auto) 2.3 Baso % (Auto) 0.3 Lymph # (Auto) 0.64 L Clarke # (Auto) 0.3 Eos # (Auto) 0.1 Baso # (Auto) 0.0 Abs Immat Gran (auto) 0.01 Absolute Neuts (auto) 2.5 Absolute Nucleated RBC 0.000 Nucleated RBC % 0.0 Sodium 143 Potassium 3.6 Chloride 113 H Carbon Dioxide 24 Anion Gap 6 BUN 4 L Creatinine 0.54 L Estim Creat Clear Calc 131 Estimated GFR > 60 Glucose 96 Lactic Acid Calcium 8.2 L Magnesium Iron TIBC % Saturation Ferritin Total Bilirubin 0.4 AST 63 H ALT 84 H Alkaline Phosphatase 185 H C-Reactive Protein 15.5 H Total Protein 5.9 L Albumin 2.9 L Lipase Vitamin B12 Folate Urine Color Urine Appearance Urine pH Ur Specific Gilbert Urine Protein Urine Glucose (UA) Urine Ketones Ur Blood (Man) Urine Nitrate Urine Bilirubin Urine Urobilinogen Leukocyte Esterase Rfl Urine RBC Urine WBC Ur Squamous Epith Cells Urine Bacteria Urine Casts Quality VTE Prophylaxis VTE prophylaxis: mechanical ordered
[2024-09-27 08:38] VITALS: BP 107/62; PULSE 77; RESP 16; TEMP 36.4; O2SAT 97
[2024-09-27 09:16] VITALS: PULSE 77; RESP 16; O2SAT 97
--- NOTE | 2024-09-27 09:16 | PM.CNGS ---
Assessment and Plan Assessment and plan (1) Cholecystitis: Code(s): K81.9 - Cholecystitis, unspecified Status: Acute Assessment and Plan: Patient presented with RUQ pain x 6 days. She was previously seen in ED and attempted medical outpatient management for symptoms, but due to increased pain she returned to ED. CT abd/pelvis significant for redemonstration of gallbladder distention, now with mural thickening and pericholecystic fluid, an interval change. The inflammation extends to the hepatic flexure of colon. Bili normal, but AST, ALT, and alk phos slightly elevated. CRP moderately increased at 15.5. HIDA scan ordered for today. Consider cholecystectomy, ERCP, or anais tube pending results. Continue IV Zosyn. PRN pain medication - ibuprofen, tylenol, morphine (2) Hypokalemia: Code(s): E87.6 - Hypokalemia Status: Acute Assessment and Plan: KCl tablet given last night. K+ up to 3.6 today. (3) Head lice: Code(s): B85.0 - Pediculosis due to Pediculus humanus capitis Status: Acute Assessment and Plan: Patient given permethrin treatment last night. Continue to manage per hospitalist recs. Plan Discussed patient's case and plan of care with Dr. Rodriguez. History of Present Illness Consult details Consult date: 09/27/24 Reason for consult: other (cholecystitis) Requesting physician: Columba Magaña, MEDICAL OFFICE MANAGER Narrative: Patient is a 34-year-old female who presented to the ED yesterday with abdominal pain x 6 days. General surgery was asked to be seen in consultation for cholecystitis. She was previously seen in [place] ER on 09/23 for biliary colic and CT abd/pelvis demonstrated markedly distended gallbladder with questionable subtle gallstone. She was sent home on pain medications and oral antibiotics as she wanted to try to manage her symptoms as an outpatient. Prior to this patient also reports being seen and discharged with no medication at [place] ED last Thursday 09/21, which was when the symptoms initially started. She stated that the pain started in her right chest and migrated to right upper quadrant. She also noted associated nausea and vomiting at the time of symptom onset. Repeat CT on 09/26 demonstrated acute cholecystitis with gallbladder thickening, now with mural thickening and pericholecystic fluid with inflammation extending to the hepatic flexure of the colon. WBC low at 3.5. Bili normal. AST, ALT, alk phos slightly elevated. CRP 15.5. Nausea and vomiting has since remitted, but right upper quadrant pain remains. Patient is having regular bowel movements. She states she has not eaten since last Friday, but that she is hungry. Past abdominal surgeries consist of and tubal ligation. She states that she recently had an EGD done in preparation for a gastric sleeve surgery that has not yet been scheduled. Of note, patient was admitted with head lice, which she was treated with permethrin for last night. [facility] Past Medical History Medical History Schizophrenia Bipolar affective disorder Surgical History Surgical History History of History of tubal ligation Family History Family History Father Diabetes mellitus Mother Cancer of stomach Other Patient's mother is Social History Social History Smoking status: Never smoker Alcohol intake: never Substance use: never Substance use type: does not use Do You Feel Safe in your Home?: Yes Lack of Transportation: No Lack of Food: Never True Current Housing: I Have Housing Concerned About Future Housing: No Difficulty Paying Gas/Electric Bills: No Difficulty Paying for Meds: No Currently Unemployed: No Education: High School Diploma/GED Difficulty w/ Childcare or Family Care: No Living arrangements: with family Gender identity (if verbalized by the patient): Female Sexual Orientation (if Verbalized by the Patient): Straight or Heterosexual Spiritual care concerns: No Meds Home Medications and Allergies Home Medications ?Medication ?Instructions ?Recorded ?Confirmed ?Type meloxicam 15 mg tablet 15 mg PO DAILY #15 tabs 07/18/24 09/26/24 Rx acetaminophen 500 mg tablet 1,000 mg (2 x 500 mg) PO .q8 PRN 09/23/24 09/26/24 Rx (Acetaminophen Extra Strength) fever or pain #60 tabs ibuprofen 800 mg tablet 800 mg PO TID PRN pain (scale 09/23/24 09/26/24 Rx score 4-6) #60 tabs paroxetine HCl 40 mg tablet 40 mg PO DAILY PRN anxiety 09/26/24 09/26/24 History topiramate 100 mg tablet 100 mg PO DAILY 09/26/24 09/26/24 History trazodone 50 mg tablet 50 mg PO HS PRN insomnia 09/26/24 09/26/24 History Allergies Allergy/AdvReac Type Severity Reaction Status Date / Time No Known Allergies Allergy Verified 09/22/24 22:15 Vital Signs Vital Signs - 24 hr 09/26/24 14:09 09/26/24 14:35 09/26/24 21:18 Temperature 98.4 F 97.8 F Pulse Rate 81 89 73 Respiratory Rate 18 18 20 Blood Pressure 151/128 H 106/52 L 103/65 Pulse Oximetry 97 98 98 Oxygen Delivery Room Air 09/27/24 03:12 09/27/24 08:38 Temperature 97.7 F 97.6 F Pulse Rate 72 77 Respiratory Rate 20 16 Blood Pressure 109/69 107/62 Pulse Oximetry 97 97 Oxygen Delivery Exam Const: General: comfortable and no acute distress HENMT: Mouth: Yes moist mucous membranes Eyes: General: appearance normal, both eyes and all related structures Neck: Neck: supple Resp: Effort & Inspection: normal respiratory effort Cardio: Rate: regular rate GI: Inspection: non-distended GI Palp: Yes Soft to palpation, Yes Tenderness to palpation present (GI) (RUQ tenderness) and No Guarding due to palpation present (GI) Auscultation: normal bowel sounds : General: Yes bladder normal to palpation Skin: General skin exam: normal color and no rashes or lesions noted Neuro: Speech: normal speech Sensory Exam: normal sensation Extrem: General: normal to inspection Psych: Mental Status: mental status grossly normal Results Labs 09/27/24 04:43 09/27/24 04:43 Labs: Abnormal lab results 09/26/24 09/26/24 09/26/24 Range/Units 14:25 14:26 16:54 WBC (4.5-10.0) K/mm3 RBC 3.54 L (4.2-5.4) M/mm3 Hgb 10.7 L (12.0-15.0) g/dL Hct 31.9 L (37.0-47.0) % Plt Count 135 L (150-375) k/mm3 MPV 11.5 H (7.4-10.4) fl Neut % (Auto) 77.5 H (45.5-73.1) % Lymph % (Auto) 13.4 L (18.3-44.2) % Lymph # (Auto) 0.77 L (0.9-3.2) K/mm3 Potassium 3.1 L (3.4-5.0) mmol/L Chloride 109 H (98-107) mmol/L BUN (7-17) mg/dL Creatinine 0.51 L (0.7-1.0) mg/dL Calcium (8.4-10.2) mg/dL Iron 17 L (37-170) ug/dL % Saturation 6 L (20-50) % Ferritin 161.00 H (6.24-137) ng/mL AST (14-36) U/L ALT 64 H (6-35) U/L Alkaline Phosphatase 154 H (38-126) U/L C-Reactive Protein (<1.0) mg/dL Total Protein (6.3-8.2) g/dL Albumin 3.3 L (3.5-5.1) g/dL Ur Specific Trevor > 1.045 H (1.001-1.035) Urine Protein 1+ H (Negative) mg/dL Urine Ketones Trace H (Negative) mg/dL Ur Blood (Man) 2+ H (Negative) 09/27/24 Range/Units 04:43 WBC 3.5 L (4.5-10.0) K/mm3 RBC 3.15 L (4.2-5.4) M/mm3 Hgb 9.4 L (12.0-15.0) g/dL Hct 29.3 L (37.0-47.0) % Plt Count 123 L (150-375) k/mm3 MPV 11.5 H (7.4-10.4) fl Neut % (Auto) (45.5-73.1) % Lymph % (Auto) 18.2 L (18.3-44.2) % Lymph # (Auto) 0.64 L (0.9-3.2) K/mm3 Potassium (3.4-5.0) mmol/L Chloride 113 H (98-107) mmol/L BUN 4 L (7-17) mg/dL Creatinine 0.54 L (0.7-1.0) mg/dL Calcium 8.2 L (8.4-10.2) mg/dL Iron (37-170) ug/dL % Saturation (20-50) % Ferritin (6.24-137) ng/mL AST 63 H (14-36) U/L ALT 84 H (6-35) U/L Alkaline Phosphatase 185 H (38-126) U/L C-Reactive Protein 15.5 H (<1.0) mg/dL Total Protein 5.9 L (6.3-8.2) g/dL Albumin 2.9 L (3.5-5.1) g/dL Ur Specific Trevor (1.001-1.035) Urine Protein (Negative) mg/dL Urine Ketones (Negative) mg/dL Ur Blood (Man) (Negative) Diabetes panel 09/26/24 09/27/24 Range/Units 14: 04:43 Sodium 139 143 (137-145) mmol/L Potassium 3.1 L 3.6 (3.4-5.0) mmol/L Chloride 109 H 113 H (98-107) mmol/L Carbon Dioxide 22 24 (22-30) mmol/L BUN 7 D 4 L (7-17) mg/dL Creatinine 0.51 L 0.54 L (0.7-1.0) mg/dL Glucose 98 96 (65-110) mg/dL Calcium 8.8 8.2 L (8.4-10.2) mg/dL AST 27 63 H (14-36) U/L ALT 64 H 84 H (6-35) U/L Alkaline Phosphatase 154 H 185 H (38-126) U/L Total Protein 6.6 5.9 L (6.3-8.2) g/dL Albumin 3.3 L 2.9 L (3.5-5.1) g/dL Calcium panel 09/26/24 09/27/24 Range/Units 14:26 04:43 Calcium 8.8 8.2 L (8.4-10.2) mg/dL Albumin 3.3 L 2.9 L (3.5-5.1) g/dL Pituitary panel 09/26/24 09/27/24 Range/Units 14:26 04:43 Sodium 139 143 (137-145) mmol/L Potassium 3.1 L 3.6 (3.4-5.0) mmol/L Chloride 109 H 113 H (98-107) mmol/L Carbon Dioxide 22 24 (22-30) mmol/L BUN 7 D 4 L (7-17) mg/dL Creatinine 0.51 L 0.54 L (0.7-1.0) mg/dL Glucose 98 96 (65-110) mg/dL Calcium 8.8 8.2 L (8.4-10.2) mg/dL Adrenal panel 09/26/24 09/27/24 Range/Units 14:26 04:43 Sodium 139 143 (137-145) mmol/L Potassium 3.1 L 3.6 (3.4-5.0) mmol/L Chloride 109 H 113 H (98-107) mmol/L Carbon Dioxide 22 24 (22-30) mmol/L BUN 7 D 4 L (7-17) mg/dL Creatinine 0.51 L 0.54 L (0.7-1.0) mg/dL Glucose 98 96 (65-110) mg/dL Calcium 8.8 8.2 L (8.4-10.2) mg/dL Total Bilirubin 0.3 0.4 (0.2-1.3) mg/dL AST 27 63 H (14-36) U/L ALT 64 H 84 H (6-35) U/L Alkaline Phosphatase 154 H 185 H (38-126) U/L Total Protein 6.6 5.9 L (6.3-8.2) g/dL Albumin 3.3 L 2.9 L (3.5-5.1) g/dL All other labs normal.
[2024-09-27] MEDS: IBUPROFEN IV 800 MG/200 ML 800 MG/200 ML BAG 400 MG IVPB ×2 (12:27→20:59)
[2024-09-27 15:16] VITALS: BP 114/63; PULSE 72; RESP 17; TEMP 36.8; O2SAT 97
[2024-09-27 20:00] VITALS: PULSE 72; RESP 17; O2SAT 97
[2024-09-27 20:07] VITALS: BP 102/57; PULSE 70; RESP 20; TEMP 36.7; O2SAT 98
[2024-09-27] MEDS: SODIUM CHLORIDE 0.9% IV 1,000 ML 70 ML IV CONT (22:52)
[2024-09-28] VITALS (16 sets, daily range): BP systolic 104–122; BP diastolic 53–78; PULSE 56–76; RESP 12–20; TEMP 36.1–36.6; O2SAT 95–100
[2024-09-28] MEDS: PIPERACILLN/TAZ 3.375GM/NS50ML 3.375 GM/50 ML BAG IVPB ×4 (04:38→20:38)
[2024-09-28] MEDS: ONDANSETRON INJ 4 MG/2 ML VIAL IV PUSH ×3 (04:39→17:30)
[2024-09-28] MEDS: MORPHINE SULFATE (*CRX) 2 MG/ML INJ IV PUSH ×2 (04:39→09:21)
[2024-09-28 05:24] LABS: Basophils Percent Auto 0.4 % (0.2-1.2); Eosinophils Absolute Auto 0.1 K/mm3 (0-0.3); Eosinophils Percent Auto 3.5 % (0-4.4); Hematocrit 27.8 % (37.0-47.0); Hemoglobin 8.8 g/dL (12.0-15.0); Immature Granulocyte Absolute 0.03 K/mm3 (0.00-0.031); Immature Granulocyte Percent A 1.3 % (0-0.5); Lymphocytes Absolute Auto 0.69 K/mm3 (0.9-3.2); Lymphocytes Percent Auto 30.5 % (18.3-44.2); Mean Corpuscular HGB Conc 31.7 g/dl (32-36); Mean Corpuscular Hemoglobin 29.9 pg (26-34); Mean Corpuscular Volume 94.6 fl (80-100); Mean Platelet Volume 11.2 fl (7.4-10.4); Monocytes Absolute Auto 0.2 K/mm3 (0.1-0.6); Monocytes Percent Auto 8.4 % (2.6-8.5); Neutrophils Absolute Auto 1.3 K/mm3 (1.3-6.7); Neutrophils Percent Auto 55.9 % (45.5-73.1); Platelet Count Result 107 k/mm3 (150-375); Red Blood Count 2.94 M/mm3 (4.2-5.4); Red Cell Distribution Width 12.8 % (11.5-14.5); White Blood Count 2.3 K/mm3 (4.5-10.0)
[2024-09-28 05:35] LABS: Alanine Aminotransferase 64 U/L (6-35); Aspartate Amino Transferase 44 U/L (14-36)
[2024-09-28 05:36] LABS: Albumin Level 2.8 g/dL (3.5-5.1); Alkaline Phosphatase 154 U/L (38-126); Anion Gap 3 mmol/L (4-12); Bilirubin,Total 0.3 mg/dL (0.2-1.3); Blood Urea Nitrogen 3 mg/dL (7-17); CRP 6.7 mg/dL (<1.0); Calcium 8.3 mg/dL (8.4-10.2); Carbon Dioxide 24 mmol/L (22-30); Chloride 113 mmol/L (98-107); Estimated CRCL calculation 148 ml/min; Estimated Glomerular Filt Rate > 60; Glucose 91 mg/dL (65-110); Potassium 3.3 mmol/L (3.4-5.0); Sodium 140 mmol/L (137-145); Total Protein 5.6 g/dL (6.3-8.2)
--- NOTE | 2024-09-28 06:51 | P.PNIM_ITS ---
Progress Note: A&P Assessment and Plan (1) Cholecystitis: Code(s): K81.9 - Cholecystitis, unspecified Status: Acute Assessment and Plan: Patient seen in ER on 09/22 -Seen in ER on 09/22 with abdominal pain, nausea, vomiting and chest pain that started the night before. During that ER visit she had normal labs with CT finding of distended gallbladder with possible gallstone. Started on Augmentin and told to follow up with Gen Surg or return to ER if worse - LFTs remain elevated but stable - Repeat CT showed acute cholecystitis and significant surrounding inflammatory change, extending into the hepatic flexure of the colon - Abdomen US showed acute cholecystitis without CBD dilation - HIDA scan showed no evident gallbladder activity consistent with acute cholecystitis - IV Zosyn started on 09/26, if diarrhea continues consider transitioning to a different antibiotic - Monitor vital signs, I and O's, check stool output, neuro status and patient is a fall risk - Monitor serum electrolytes and CBC - Monitor lactic acid - IV pain management - Gentle IV fluid resuscitation - Diet:NPO - Consult general surgery for further evaluation, appreciate assistance and recommendation Plan for lap cholecystectomy today with Dr. Rodriguez (2) Hypokalemia: Code(s): E87.6 - Hypokalemia Status: Acute Assessment and Plan: -Hypokalemia on admission, likely secondary to ongoing nausea/vomiting and unable to keep down food/fluids well -Potassium replaced in ER along with pain medication and nausea medication -K 3.3 on am labs, given 40 meq IV KCl - Monitor (3) Head lice: Code(s): B85.0 - Pediculosis due to Pediculus humanus capitis Status: Acute Assessment and Plan: -Head lice identified on admit -Permetherin 5% ordered Time Spent With Patient Time with patient: 25 - 35 minutes Subjective Date/time seen: 09/28/24 06:51 Interval history: 34-year-old female patient with past medical history of schizophrenia and bipolar who presents to the hospital for worsening upper abdominal pain, nausea and vomiting. Patient is pleasant sitting up in bed. She is endorsing increased diarrhea but notes her abdominal pain is well controlled on the current regimen. She denies nausea/vomiting. She has no other complaints denying chest pain, palpitations, and shortness of breath. Review of Systems Review of Systems: All systems reviewed & are unremarkable except as noted in HPI and below Exam Narrative: AF HR 66 RR 16 SPO2 95 BP 112/70 General: female in no acute respiratory distress who is nontoxic appearing, sitting up in bed HEENT: Normocephalic. Atraumatic. Extraocular movement intact. Sclera clear and anicteric. No facial asymmetry. Chest: Lungs are clear to auscultation bilaterally. No wheezes or crackles. CV: Heart was regular rate and rhythm. Abd: Abdomen was soft. Tender RUQ. Nondistended. Positive bowel sounds. Ext: No clubbing, cyanosis, or edema. DP pulses bilaterally. Neuro: Patient is alert and oriented x3. Speech is clear. Objective Data Vital Signs Vital Signs: Vital Signs - 24 hr 09/27/24 08:38 09/27/24 09:16 09/27/24 15:16 Temperature 97.6 F 98.2 F Pulse Rate 77 77 72 Respiratory Rate 16 16 17 Blood Pressure 107/62 114/63 Pulse Oximetry 97 97 97 Oxygen Delivery Room Air 09/27/24 20:00 09/27/24 20:07 09/28/24 04:20 Temperature 98.1 F 97 F L Pulse Rate 72 70 60 Respiratory Rate 17 20 20 Blood Pressure 102/57 L 104/62 Pulse Oximetry 97 98 98 Oxygen Delivery Room Air Intake/Output Intake/Output: Intake & Output 09/25/24 09/26/24 09/27/24 09/28/24 23:59 23:59 23:59 23:59 Intake Total 2100 3060 0 Balance 2100 3060 0 Meds/Results Medications: Active Medications Generic Name Dose Route Start Last Admin Trade Name Freq PRN Reason Stop Dose Admin Acetaminophen 1,000 mg 09/26/24 21:01 Acetaminophen 500 Mg Tablet PO Q8HR PRN fever or pain 1-3 Enoxaparin Sodium 30 mg 09/26/24 21:00 09/27/24 23:01 Enoxaparin 30 Mg/0.3 Ml Syringe SUB-Q Not Given Q12HR FLORENTINO Sodium Chloride 1,000 mls @ 70 mls/hr 09/26/24 17:15 09/27/24 22:52 Normal Saline Iv IV CONT 70 mls/hr .[id number] FLORENTINO Administration Piperacillin/Tazobactam/Dextrose 3.375 gm in 50 mls @ 100 mls/hr 09/26/24 21:00 09/28/24 04:38 Zosyn 3.375 Gm/Ns 50 Ml IVPB 100 mls/hr Q6H FLORENTINO Administration Ibuprofen 800 mg in 200 mls @ 400 mls/hr 09/26/24 20:09 09/27/24 21:30 Caldolor 800 Mg/200 Ml IVPB Infused Q6H PRN Infusion Pain Rated 1-3 Morphine Sulfate 4 mg 09/26/24 17:15 Morphine Sulfate (*Crx) 4 Mg/Ml Inj IV PUSH Q2H PRN Pain Rated 7-10 Morphine Sulfate 2 mg 09/26/24 17:15 09/28/24 04:39 Morphine Sulfate (*Crx) 2 Mg/Ml Inj IV PUSH 2 mg Q2H PRN Administration Pain Rated 4-6 Ondansetron HCl 4 mg 09/26/24 17:15 09/28/24 04:39 Ondansetron Inj 4 Mg/2 Ml Vial IV PUSH 4 mg Q4H PRN Administration Nausea Paroxetine HCl 40 mg 09/26/24 20:11 Paroxetine 20 Mg Tablet PO DAILY PRN anxiety Topiramate 100 mg 09/27/24 09:00 09/27/24 08:48 Topiramate 100 Mg Tablet PO Not Given DAILY FLORENTINO Trazodone HCl 50 mg 09/26/24 20:11 Trazodone Hcl 50 Mg Tablet PO HS PRN insomnia Radiology Results: ITS Impressions Abdomen/Pelvis CT 09/26/24 16:14 IMPRESSION: Acute cholecystitis, as detailed above. Significant surrounding inflammatory change, extending into the hepatic flexure the colon. Abdomen Ultrasound 09/26/24 17:43 IMPRESSION: Acute cholecystitis, as detailed above. No common bile duct dilatation. Hepatomegaly. Hepatobiliary Scan Nuclear Medicine 09/27/24 14:57 IMPRESSION: 1. No evident gallbladder activity consistent with acute cholecystitis. Labs Labs: Laboratory Results - last 24 hr 09/27/24 09/28/24 16:45 05:11 WBC 2.3 L RBC 2.94 L Hgb 8.8 L Hct 27.8 L MCV 94.6 MCH 29.9 MCHC 31.7 L RDW 12.8 Plt Count 107 L MPV 11.2 H Immature Gran % (Auto) 1.3 H Neut % (Auto) 55.9 Lymph % (Auto) 30.5 Josephine % (Auto) 8.4 Eos % (Auto) 3.5 Baso % (Auto) 0.4 Lymph # (Auto) 0.69 L Josephine # (Auto) 0.2 Eos # (Auto) 0.1 Baso # (Auto) 0.0 Abs Immat Gran (auto) 0.03 Absolute Neuts (auto) 1.3 Absolute Nucleated RBC 0.000 Nucleated RBC % 0.0 Sodium 140 Potassium 3.3 L Chloride 113 H Carbon Dioxide 24 Anion Gap 3 L BUN 3 L Creatinine 0.47 L Estim Creat Clear Calc 148 Estimated GFR > 60 Glucose 91 Calcium 8.3 L Total Bilirubin 0.3 AST 44 H ALT 64 H Alkaline Phosphatase 154 H C-Reactive Protein 6.7 H Total Protein 5.6 L Albumin 2.8 L Blood Type O Positive Antibody Screen Negative Quality VTE Prophylaxis VTE prophylaxis: mechanical ordered
[2024-09-28] MEDS: POTASSIUM CHLORIDE INJ 40 MEQ in SODIUM CHLORIDE 0.9% IV 500 ML 130 MEQ IVPB (09:10)
[2024-09-28] MEDS: TOPIRAMATE 100 MG TABLET PO ×2 (09:14→09:20)
[2024-09-28] MEDS: ENOXAPARIN 30 MG/0.3 ML SYRINGE SUB-Q ×2 (09:20→20:39)
--- NOTE | 2024-09-28 12:37 | WPDHPUPDATE1 ---
History and Physical Update Update Date/Time: 09/28/24 12:37 History and Physical has been reviewed, including an updated exam of the patient. There are NO changes in the patient's condition. Risks, benefits, and alternatives have been discussed and questions answered. Patient agrees to proceed with procedure.
[2024-09-28] MEDS: ACETAMINOPHEN 500 MG TABLET 1000 MG PO (13:30)
[2024-09-28] MEDS: KETOROLAC 15 MG/ML VIAL (*BKC) IV PUSH (13:30)
[2024-09-28] MEDS: LACTATED RINGERS 1,000 ML 30 ML IV CONT ×2 (14:15→17:11)
[2024-09-28] MEDS: FAMOTIDINE 20 MG/2 ML VIAL IV PUSH (14:15)
[2024-09-28] MEDS: BUPIVACAINE/EPINEPHRINE 0.5% 30 ML VIAL INFILTRATE (15:13)
--- NOTE | 2024-09-28 16:21 | S_PTH ---
PATIENT: Manisha Lundy LOC: [id number] U#:[id number] AGE/SX: 34/F ROOM: 253 RE09/28/[address]: Jeane Moffett APRN : [id number] BED: 01 DIS: 10/01/2024 SPEC #: [id number] RECD: 09/29/24 07:45 STATUS: YOMI REAston #: [id number] HELENA: 09/28/24 16:[address]: Hua Rodriguez DEPT: [facility] Surgical RECD BY: Debora Porter ENTERED: 09/29/24 07:45 SP TYPE: Surgical OTHR DR: MD Zane Corona MD Izabella L. Timmons, PA-C Tissues: A - Gallbladder Procedures: Hematoxylin and Eosin Stain Gross and Microscopic Level 3
--- NOTE | 2024-09-28 17:25 | W.PM.PROC2 ---
Procedure Note - Detailed Date of Procedure 09/28/24 Pre-op Diagnosis Acute cholecystitis, cholelithiasis with cystic duct obstruction Post-op Diagnosis Same Procedure Performed Laparoscopic cholecystectomy Surgeon Hua Rodriguez MD Research Quality Assurance Specialist Alfonso TIWARI Anesthesia General and Local Indications Patient had been complaining of right upper quadrant pain that was severe. She went to a different hospital at 1st and then ended up in our emergency room. To was diagnosed with cholecystitis and gallstones. She was feeling better and went home but then came back with the pain being even more severe. She was admitted. Ultrasound as well as HIDA scan shows acute cholecystitis with gallstones. Patient is taken to surgery now for laparoscopic cholecystectomy. Findings She had very severe acute cholecystitis with hydrops and purulent bile. The gallbladder itself was hypervascular and intra hepatic especially at its upper 3rd. She had fatty liver and it was very difficult to retract the gallbladder adequately. Usually 4 ports are used for this surgery. In her case we placed not only a 5th port but a 6th port. She had a very large gallstone impacted in the neck of the gallbladder. This made it extremely difficult to grasp and retract the gallbladder. Patient had so much inflammation that all the dissection created bleedy oozing. Particularly when we dissected the gallbladder off the omentum. The gallbladder wall was very thin and fragile in the upper half of the gallbladder where the gallbladder was intrahepatic. It was difficult to stay out of the liver as we were dissecting the gallbladder from the liver. There was at least 5 times more bleeding than we usually see in this case. A postoperative drain was required which is unusual. Patient remained hemodynamically stable throughout the surgery. Description of Procedure Patient was taken to surgery and induced into general anesthesia. The abdomen is prepped and draped. Initial trocars were placed in the usual fashion using [employer] optical trocars and a 5 mm camera. Once the initial 4 trocars were placed, we gently elevated the liver and began bluntly dissecting the omentum off of the fundus of the gallbladder. As mentioned, even these inflammatory adhesions triggered much oozing of blood. This was done as gently as possible but just continued ooze. Eventually we had enough of the gallbladder exposed that I could use a laparoscopic aspirator and decompress the gallbladder. It appeared that there was white bile in the gallbladder consistent with hydrops. The gallbladder was decompressed pretty well. We then tried to retract the gallbladder anteriorly superiorly, however she had in enlarged fatty liver which made this not feasible. During our attempts at retraction of the gallbladder, the instrument created a hole in the gallbladder and purulent bile was seen to drain from the gallbladder. We placed an extra 5 mm trocar in the left mid abdomen. This was used to retract the transverse colon and duodenum posteriorly. I placed traction above the stone in the infundibulum and then used blunt dissection and some cautery to dissect in the cholecystohepatic triangle. The inflammation here was quite dense. There was an anomaly with the right hepatic artery as it traversed over the common hepatic duct. 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 The cystic arteries were very diminutive. They were pared and close to the right hepatic artery. Continued careful dissection in the cholecystohepatic triangle was carried out. The cystic duct was identified. The peritoneum of the gallbladder was very thickened and fibrotic. Eventually we dissected the peritoneum off the gallbladder and were able to dissect the lower 3rd of the gallbladder off the liver. Critical view was achieved. I then securely clipped and divided the diminutive cystic artery. The cystic duct was dissected a bit further and then it was securely clipped and divided. From there, an extremely difficult dissection of the gallbladder from the gallbladder fossa was carried out next. A combination of careful dissection with blunt and hook cautery was used. The suction was used for some of the dissection as well as suctioning way blood or other drainage. A 6th trocar was a 5 mm and was placed in the right upper abdomen. This was done as we needed to be able to have another instrument to apply traction and retract the liver and gallbladder. About half for 2[address] the fundus of the gallbladder, the gallbladder was very intrahepatic. The edge of the gallbladder was difficult to tell from the edge of the liver. The back wall of the gallbladder tore easily and there were several openings made in the gallbladder. One sizable stone was retrieved and set aside. It was too large to remove through any of our trocars. We then continued dissecting the gallbladder free from the liver. There was some superficial liver injury but this was quickly moved to a different plane and for the most part we dissected the gallbladder free from the liver without liver injury. The wall the gallbladder, as I mentioned, did have several holes in it but was completely removed. Once the gallbladder was freed entirely, we placed it in an Endo-Catch bag. The large stone that we had set aside was also placed in the Endo-Catch bag. The gallbladder in the Endo-Catch bag was then retrieved through the 10 11 epigastric trocar site. This trocar site had to be significantly enlarged to accommodate the large gallbladder with thickened wall and large stones. The skin as well as the abdominal fascia had to be enlarged but eventually the gallbladder was able to be removed. We replaced the epigastric trocar and used towel clips to occlude the skin and subcutaneous so that we could re-insufflate. Once we had re-insufflated, irrigation and suctioning were carried out in the gallbladder fossa and the right upper quadrant. We looked carefully for any spilled stones and found none. We removed all bloody drainage and clots. Repeated irrigation and suctioning was done. The gallbladder fossa itself was dry with only some old blood on the surface. There was no evidence of bile leakage. I then placed a 19 Kinyarwanda Robert drain through the right lower quadrant 5 mm port. This was brought up to lie in the gallbladder fossa and in the subhepatic space. The gallbladder had been so intrahepatic that there was actually a large space in the liver where I could put most of the drain. The drain was sutured securely to the skin with 2-0 silk. We then evacuated CO2 and removed the trocar sleeves. The fascia at the epigastric trocar site was closed with [id number] mattress sutures of 0 Vicryl. The subcutaneous at the epigastric trocar site was closed with 3-0 Vicryl suture. The skin was loosely approximated with subcuticular 3-0 Vicryl suture. All skin wounds were then closed with subcuticular 4-0 Monocryl skin suture. The drain was placed to bulb suction. A drain sponge was placed and taped securely. The the other incisions were all dressed with Exofin surgical adhesive. The patient was then awakened and taken to recovery in good condition. Sponge and needle counts were correct x2. Estimated Blood Loss -150 Drains Yes (Nineteen Kinyarwanda Robert drain) Packing No Pathology Yes (Gallbladder) Complications None Condition Stable Disposition PACU [facility] Billing Surgery - Charge Forward: Surgery Billing (Laparoscopic cholecystectomy, add 22 modifier for increased difficulty.)
[2024-09-28] MEDS: HYDROmorphone HCL INJ (*CRX) 1 MG/ML SYR 0.5 MG IV PUSH ×2 (17:35→17:40)
[2024-09-28] MEDS: diphenhydrAMINE HCl INJ 50 MG/ML VIAL 25 MG IV PUSH (18:00)
[2024-09-28] MEDS: LACTATED RINGERS 1,000 ML 100 ML IV CONT (18:31)
[2024-09-28] MEDS: MORPHINE SULFATE (*CRX) 4 MG/ML INJ IV PUSH (20:44)
[2024-09-29] MEDS: PIPERACILLN/TAZ 3.375GM/NS50ML 3.375 GM/50 ML BAG IVPB ×4 (03:33→20:36)
[2024-09-29] MEDS: MORPHINE SULFATE (*CRX) 4 MG/ML INJ IV PUSH ×2 (03:37→12:38)
[2024-09-29] MEDS: LACTATED RINGERS 1,000 ML 100 ML IV CONT ×2 (03:41→16:27)
[2024-09-29 03:58] VITALS: BP 111/63; PULSE 53; RESP 20; TEMP 36.8; O2SAT 98
[2024-09-29 04:03] VITALS: BP 111/63; PULSE 53; RESP 20; TEMP 36.8; O2SAT 98
[2024-09-29 05:09] LABS: Basophils Percent Auto 0.2 % (0.2-1.2); Eosinophils Percent Auto 0.7 % (0-4.4); Hematocrit 27.8 % (37.0-47.0); Hemoglobin 8.8 g/dL (12.0-15.0); Immature Granulocyte Absolute 0.05 K/mm3 (0.00-0.031); Immature Granulocyte Percent A 1.1 % (0-0.5); Lymphocytes Percent Auto 10.8 % (18.3-44.2); Mean Corpuscular HGB Conc 31.7 g/dl (32-36); Mean Corpuscular Hemoglobin 30.1 pg (26-34); Mean Corpuscular Volume 95.2 fl (80-100); Mean Platelet Volume 12.7 fl (7.4-10.4); Monocytes Absolute Auto 0.3 K/mm3 (0.1-0.6); Monocytes Percent Auto 6.5 % (2.6-8.5); Neutrophils Absolute Auto 3.7 K/mm3 (1.3-6.7); Neutrophils Percent Auto 80.7 % (45.5-73.1); Platelet Count Result 119 k/mm3 (150-375); Red Blood Count 2.92 M/mm3 (4.2-5.4); Red Cell Distribution Width 12.5 % (11.5-14.5); White Blood Count 4.6 K/mm3 (4.5-10.0)
[2024-09-29 05:50] LABS: Alanine Aminotransferase 99 U/L (6-35); Alkaline Phosphatase 152 U/L (38-126); Anion Gap 6 mmol/L (4-12); Aspartate Amino Transferase 78 U/L (14-36); Bilirubin,Total 0.2 mg/dL (0.2-1.3); Blood Urea Nitrogen 6 mg/dL (7-17); Calcium 8.5 mg/dL (8.4-10.2); Carbon Dioxide 21 mmol/L (22-30); Chloride 113 mmol/L (98-107); Estimated CRCL calculation 111 ml/min; Estimated Glomerular Filt Rate > 60; Glucose 108 mg/dL (65-110); Potassium 3.8 mmol/L (3.4-5.0); Sodium 140 mmol/L (137-145); Total Protein 5.8 g/dL (6.3-8.2)
--- NOTE | 2024-09-29 07:48 | P.PNIM_ITS ---
Progress Note: A&P Assessment and Plan (1) Cholecystitis: Code(s): K81.9 - Cholecystitis, unspecified Status: Acute Assessment and Plan: Patient seen in ER on 09/22 -Seen in ER on 09/22 with abdominal pain, nausea, vomiting and chest pain that started the night before. During that ER visit she had normal labs with CT finding of distended gallbladder with possible gallstone. Started on Augmentin and told to follow up with Gen Surg or return to ER if worse - LFTs remain elevated but stable - Repeat CT showed acute cholecystitis and significant surrounding inflammatory change, extending into the hepatic flexure of the colon - Abdomen US showed acute cholecystitis without CBD dilation - HIDA scan showed no evident gallbladder activity consistent with acute cholecystitis - IV Zosyn started on 09/26, if diarrhea continues consider transitioning to a different antibiotic - Monitor vital signs, I and O's, check stool output, neuro status and patient is a fall risk - Monitor serum electrolytes and CBC - Monitor lactic acid - IV pain management - Gentle IV fluid resuscitation - Diet: NPO - Consult general surgery for further evaluation, appreciate assistance and recommendation Plan for lap cholecystectomy today with Dr. Rodriguez - doing well over all but pain is still an issue - anticipate discharge in am tomorrow (2) Hypokalemia: Code(s): E87.6 - Hypokalemia Status: Acute Assessment and Plan: -Hypokalemia on admission, likely secondary to ongoing nausea/vomiting and unable to keep down food/fluids well -Potassium replaced in ER along with pain medication and nausea medication -K 3.3 on am labs, given 40 meq IV KCl - Monitor (3) Head lice: Code(s): B85.0 - Pediculosis due to Pediculus humanus capitis Status: Acute Assessment and Plan: -Head lice identified on admit -Permetherin 5% ordered Time Spent With Patient Time with patient: 25 - 35 minutes Subjective Date/time seen: 09/29/24 07:48 Interval history: 34-year-old female patient with past medical history of schizophrenia and bipolar who presents to the hospital for worsening upper abdominal pain, nausea and vomiting. Patient is pleasant sitting up in bed. She is endorsing increased diarrhea but notes her abdominal pain is well controlled on the current regimen. She denies nausea/vomiting. She has no other complaints denying chest pain, palpitations, and shortness of breath. Had Laparoscopic cholecystectomy with Dr Rodriguez on 09/28/24. Pain is still an issue. Anticipate discharged in am if stable overnight and pain is better controlled. Review of Systems Review of Systems: All systems reviewed & are unremarkable except as noted in HPI and below Exam Narrative: General: female in no acute respiratory distress who is nontoxic appearing, sitting up in bed HEENT: Normocephalic. Atraumatic. Extraocular movement intact. Sclera clear and anicteric. No facial asymmetry. Chest: Lungs are clear to auscultation bilaterally. No wheezes or crackles. CV: Heart was regular rate and rhythm. Abd: Abdomen was soft. Tender RUQ. Nondistended. Positive bowel sounds. Ext: No clubbing, cyanosis, or edema. DP pulses bilaterally. Neuro: Patient is alert and oriented x3. Speech is clear. Const: General: comfortable Objective Data Vital Signs Vital Signs: Vital Signs - 24 hr 09/28/24 09:21 09/28/24 13:30 09/28/24 17:11 Temperature 97.2 F L Pulse Rate 60 65 76 Respiratory Rate 20 16 16 Blood Pressure 112/70 109/53 L Pulse Oximetry 98 95 99 Oxygen Delivery Room Air Room Air Simple Face Mask Oxygen Flow Rate 8 09/28/24 17:25 09/28/24 17:40 09/28/24 17:55 Temperature Pulse Rate 65 65 60 Respiratory Rate 16 12 14 Blood Pressure 115/70 116/73 105/69 Pulse Oximetry 100 97 97 Oxygen Delivery Room Air Room Air Room Air Oxygen Flow Rate 09/28/24 18:10 09/28/24 18:30 09/28/24 18:45 Temperature 97.6 F 97.6 F Pulse Rate 56 L 60 60 Respiratory Rate 14 18 16 Blood Pressure 122/78 121/75 111/66 Pulse Oximetry 95 100 99 Oxygen Delivery Room Air Oxygen Flow Rate 09/28/24 18:58 09/28/24 19:52 09/28/24 19:58 Temperature 97.9 F 97.9 F 97.9 F Pulse Rate 73 73 73 Respiratory Rate 20 20 20 Blood Pressure 116/67 116/67 116/67 Pulse Oximetry 99 99 99 Oxygen Delivery Oxygen Flow Rate 09/28/24 20:00 09/28/24 21:31 09/28/24 23:58 Temperature 97.7 F Pulse Rate 73 68 Respiratory Rate 20 20 Blood Pressure 106/59 L Pulse Oximetry 99 99 98 Oxygen Delivery Room Air Room Air Oxygen Flow Rate 09/29/24 03:58 09/29/24 04:03 Temperature 98.2 F 98.2 F Pulse Rate 53 L 53 L Respiratory Rate 20 20 Blood Pressure 111/63 111/63 Pulse Oximetry 98 98 Oxygen Delivery Oxygen Flow Rate Intake/Output Intake/Output: Intake & Output 09/26/24 09/27/24 09/28/24 09/29/24 23:59 23:59 23:59 23:59 Intake Total 2100 3060 500 1206.7 Output Total 50 Balance 2100 3060 500 1156.7 Meds/Results Medications: Active Medications Generic Name Dose Route Start Last Admin Trade Name Freq PRN Reason Stop Dose Admin Acetaminophen 1,000 mg 09/26/24 21:01 Acetaminophen 500 Mg Tablet PO Q8HR PRN fever or pain 1-3 Diphenhydramine HCl 25 mg 09/28/24 18:13 Diphenhydramine Hcl Inj 50 Mg/Ml Vial IV PUSH Q6H PRN Itching Enoxaparin Sodium 30 mg 09/26/24 21:00 09/28/24 20:39 Enoxaparin 30 Mg/0.3 Ml Syringe SUB-Q 30 mg Q12HR FLORENTINO Administration Piperacillin/Tazobactam/Dextrose 3.375 gm in 50 mls @ 100 mls/hr 09/26/24 21:00 09/29/24 04:00 Zosyn 3.375 Gm/Ns 50 Ml IVPB Infused Q6H FLORENTINO Infusion Ibuprofen 800 mg in 200 mls @ 400 mls/hr 09/26/24 20:09 09/27/24 21:30 Caldolor 800 Mg/200 Ml IVPB Infused Q6H PRN Infusion Pain Rated 1-3 Lactated Ringer's 1,000 mls @ 100 mls/hr 09/28/24 18:13 09/29/24 03:41 Lr - Lactated Ringers Iv IV CONT 100 mls/hr .Q10H FLORENTINO Administration Morphine Sulfate 2 mg 09/28/24 18:13 Morphine Sulfate (*Crx) 2 Mg/Ml Inj IV PUSH Q2H PRN Breakthrough Pain Rated 4-6 or NPO Morphine Sulfate 4 mg 09/28/24 18:13 09/29/24 03:37 Morphine Sulfate (*Crx) 4 Mg/Ml Inj IV PUSH 4 mg Q2H PRN Administration Breakthrough Pain Rated 7-10 or NPO Naloxone HCl 0.1 mg 09/28/24 18:13 Naloxone Hcl 0.4 Mg/Ml Vial IV PUSH Q2M PRN Opiate Reversal Ondansetron HCl 4 mg 09/26/24 17:15 09/28/24 04:39 Ondansetron Inj 4 Mg/2 Ml Vial IV PUSH 4 mg Q4H PRN Administration Nausea Oxycodone/Acetaminophen 1 tablet 09/28/24 18:13 Oxycodone/Acetaminophen (*Crx) 5-325 Mg Tablet PO Q4H PRN Pain Rated 4-6 Paroxetine HCl 40 mg 09/26/24 20:11 Paroxetine 20 Mg Tablet PO DAILY PRN anxiety Topiramate 100 mg 09/27/24 09:00 09/28/24 09:20 Topiramate 100 Mg Tablet PO 100 mg DAILY FLORENTINO Administration Trazodone HCl 50 mg 09/26/24 20:11 Trazodone Hcl 50 Mg Tablet PO HS PRN insomnia Radiology Results: ITS Impressions Abdomen/Pelvis CT 09/26/24 16:14 IMPRESSION: Acute cholecystitis, as detailed above. Significant surrounding inflammatory change, extending into the hepatic flexure the colon. Abdomen Ultrasound 09/26/24 17:43 IMPRESSION: Acute cholecystitis, as detailed above. No common bile duct dilatation. Hepatomegaly. Hepatobiliary Scan Nuclear Medicine 09/27/24 14:57 IMPRESSION: 1. No evident gallbladder activity consistent with acute cholecystitis. Labs Labs: Laboratory Results - last 24 hr 09/29/24 04:34 WBC 4.6 RBC 2.92 L Hgb 8.8 L Hct 27.8 L MCV 95.2 MCH 30.1 MCHC 31.7 L RDW 12.5 Plt Count 119 L MPV 12.7 H Immature Gran % (Auto) 1.1 H Neut % (Auto) 80.7 H Lymph % (Auto) 10.8 L [place] % (Auto) 6.5 Eos % (Auto) 0.7 Baso % (Auto) 0.2 Lymph # (Auto) 0.50 L [place] # (Auto) 0.3 Eos # (Auto) 0.0 Baso # (Auto) 0.0 Abs Immat Gran (auto) 0.05 H Absolute Neuts (auto) 3.7 Absolute Nucleated RBC 0.000 Nucleated RBC % 0.0 Sodium 140 Potassium 3.8 Chloride 113 H Carbon Dioxide 21 L Anion Gap 6 BUN 6 L Creatinine 0.65 L Estim Creat Clear Calc 111 Estimated GFR > 60 Glucose 108 Calcium 8.5 Total Bilirubin 0.2 AST 78 H ALT 99 H Alkaline Phosphatase 152 H Total Protein 5.8 L Albumin 3.0 L Quality VTE Prophylaxis VTE prophylaxis: mechanical ordered
[2024-09-29 07:49] VITALS: BP 123/82; PULSE 68; RESP 18; TEMP 36.8; O2SAT 99
[2024-09-29] MEDS: oxyCODONE/ACETAMINOPHEN (*CRX) 5-325 MG TABLET 1 TABLET PO ×3 (08:34→20:35)
[2024-09-29] MEDS: ENOXAPARIN 30 MG/0.3 ML SYRINGE SUB-Q ×2 (08:42→20:36)
--- NOTE | 2024-09-29 09:58 | PM.PNGS ---
Progress Note: A&P Assessment and Plan (1) Cholecystitis: Code(s): K81.9 - Cholecystitis, unspecified Status: Acute Assessment and Plan: Patient had no acute events overnight. Incisions look clean and dry. SARAH drain in place and draining well. She still complains of pain, but believes that the morphine is helping. However, she does not feel ready for discharge today. Continue pain management regimen. Will monitor labs and continue serial abdominal exams. Plan for discharge tomorrow or Friday if pain subsides. She will likely go home with SARAH drain and return to office in a few days for removal of drain. Subjective Subjective Date/Time Seen: 09/29/24 09:58 Interval history: Patient still complains of pain today, but feels as though the morphine is helping. She states that she does not feel ready for discharge today from a pain standpoint. She had BM today. Expresses that she had some nausea. but no vomiting. She was able to keep her breakfast down this morning. WBC normal. Afebrile overnight. Drain with minimal sanguineous fluid. Exam GI: Inspection: non-distended GI Palp: Yes Soft to palpation and Yes Tenderness to palpation present (GI) (Patient complains of epigastric and right upper quadrant pain. ) Other: Incision sites are clean and dry with mild surrounding ecchymosis. No signs of infection, dehiscence, or necrosis. SARAH drain with minimal sanguineous fluid. Objective Data Vital Signs Vital Signs: Vital Signs - 24 hr 09/28/24 13:30 09/28/24 17:11 09/28/24 17:25 Temperature 97.2 F L Pulse Rate 65 76 65 Respiratory Rate 16 16 16 Blood Pressure 112/70 109/53 L 115/70 Pulse Oximetry 95 99 100 Oxygen Delivery Room Air Simple Face Mask Room Air Oxygen Flow Rate 8 09/28/24 17:40 09/28/24 17:55 09/28/24 18:10 Temperature Pulse Rate 65 60 56 L Respiratory Rate 12 14 14 Blood Pressure 116/73 105/69 122/78 Pulse Oximetry 97 97 95 Oxygen Delivery Room Air Room Air Room Air Oxygen Flow Rate 09/28/24 18:30 09/28/24 18:45 09/28/24 18:58 Temperature 97.6 F 97.6 F 97.9 F Pulse Rate 60 60 73 Respiratory Rate 18 16 20 Blood Pressure 121/75 111/66 116/67 Pulse Oximetry 100 99 99 Oxygen Delivery Oxygen Flow Rate 09/28/24 19:52 09/28/24 19:58 09/28/24 20:00 Temperature 97.9 F 97.9 F Pulse Rate 73 73 73 Respiratory Rate 20 20 20 Blood Pressure 116/67 116/67 Pulse Oximetry 99 99 99 Oxygen Delivery Room Air Oxygen Flow Rate 09/28/24 21:31 09/28/24 23:58 09/29/24 03:58 Temperature 97.7 F 98.2 F Pulse Rate 68 53 L Respiratory Rate 20 20 Blood Pressure 106/59 L 111/63 Pulse Oximetry 99 98 98 Oxygen Delivery Room Air Oxygen Flow Rate 09/29/24 04:03 09/29/24 07:49 09/29/24 08:30 Temperature 98.2 F 98.2 F Pulse Rate 53 L 68 Respiratory Rate 20 18 Blood Pressure 111/63 123/82 Pulse Oximetry 98 99 Oxygen Delivery Room Air Oxygen Flow Rate Intake/Output Intake/Output: Intake & Output 09/26/24 09/27/24 09/28/24 09/29/24 23:59 23:59 23:59 23:59 Intake Total 2100 3060 500 1206.7 Output Total 50 Balance 2100 3060 500 1156.7 Meds/Results Medications: Active Medications Generic Name Dose Route Start Last Admin Trade Name Freq PRN Reason Stop Dose Admin Acetaminophen 1,000 mg 09/26/24 21:01 Acetaminophen 500 Mg Tablet PO Q8HR PRN fever or pain 1-3 Diphenhydramine HCl 25 mg 09/28/24 18:13 Diphenhydramine Hcl Inj 50 Mg/Ml Vial IV PUSH Q6H PRN Itching Enoxaparin Sodium 30 mg 09/26/24 21:00 09/29/24 08:42 Enoxaparin 30 Mg/0.3 Ml Syringe SUB-Q 30 mg Q12HR FLORENTINO Administration Piperacillin/Tazobactam/Dextrose 3.375 gm in 50 mls @ 100 mls/hr 09/26/24 21:00 09/29/24 08:35 Zosyn 3.375 Gm/Ns 50 Ml IVPB 100 mls/hr Q6H FLORENTINO Administration Ibuprofen 800 mg in 200 mls @ 400 mls/hr 09/26/24 20:09 09/27/24 21:30 Caldolor 800 Mg/200 Ml IVPB Infused Q6H PRN Infusion Pain Rated 1-3 Lactated Ringer's 1,000 mls @ 100 mls/hr 09/28/24 18:13 09/29/24 03:41 Lr - Lactated Ringers Iv IV CONT 100 mls/hr .Q10H FLORENTINO Administration Morphine Sulfate 2 mg 09/28/24 18:13 Morphine Sulfate (*Crx) 2 Mg/Ml Inj IV PUSH Q2H PRN Breakthrough Pain Rated 4-6 or NPO Morphine Sulfate 4 mg 09/28/24 18:13 09/29/24 03:37 Morphine Sulfate (*Crx) 4 Mg/Ml Inj IV PUSH 4 mg Q2H PRN Administration Breakthrough Pain Rated 7-10 or NPO Naloxone HCl 0.1 mg 09/28/24 18:13 Naloxone Hcl 0.4 Mg/Ml Vial IV PUSH Q2M PRN Opiate Reversal Ondansetron HCl 4 mg 09/26/24 17:15 09/28/24 04:39 Ondansetron Inj 4 Mg/2 Ml Vial IV PUSH 4 mg Q4H PRN Administration Nausea Oxycodone/Acetaminophen 1 tablet 09/28/24 18:13 09/29/24 08:34 Oxycodone/Acetaminophen (*Crx) 5-325 Mg Tablet PO 1 tablet Q4H PRN Administration Pain Rated 4-6 Paroxetine HCl 40 mg 09/26/24 20:11 Paroxetine 20 Mg Tablet PO DAILY PRN anxiety Topiramate 100 mg 09/27/24 09:00 09/28/24 09:20 Topiramate 100 Mg Tablet PO 100 mg DAILY FLORENTINO Administration Trazodone HCl 50 mg 09/26/24 20:11 Trazodone Hcl 50 Mg Tablet PO HS PRN insomnia Radiology Results: ITS Impressions Abdomen/Pelvis CT 09/26/24 16:14 IMPRESSION: Acute cholecystitis, as detailed above. Significant surrounding inflammatory change, extending into the hepatic flexure the colon. Abdomen Ultrasound 09/26/24 17:43 IMPRESSION: Acute cholecystitis, as detailed above. No common bile duct dilatation. Hepatomegaly. Hepatobiliary Scan Nuclear Medicine 09/27/24 14:57 IMPRESSION: 1. No evident gallbladder activity consistent with acute cholecystitis. Labs Labs: Laboratory Results - last 24 hr 09/29/24 04:34 WBC 4.6 RBC 2.92 L Hgb 8.8 L Hct 27.8 L MCV 95.2 MCH 30.1 MCHC 31.7 L RDW 12.5 Plt Count 119 L MPV 12.7 H Immature Gran % (Auto) 1.1 H Neut % (Auto) 80.7 H Lymph % (Auto) 10.8 L [place] % (Auto) 6.5 Eos % (Auto) 0.7 Baso % (Auto) 0.2 Lymph # (Auto) 0.50 L [place] # (Auto) 0.3 Eos # (Auto) 0.0 Baso # (Auto) 0.0 Abs Immat Gran (auto) 0.05 H Absolute Neuts (auto) 3.7 Absolute Nucleated RBC 0.000 Nucleated RBC % 0.0 Sodium 140 Potassium 3.8 Chloride 113 H Carbon Dioxide 21 L Anion Gap 6 BUN 6 L Creatinine 0.65 L Estim Creat Clear Calc 111 Estimated GFR > 60 Glucose 108 Calcium 8.5 Total Bilirubin 0.2 AST 78 H ALT 99 H Alkaline Phosphatase 152 H Total Protein 5.8 L Albumin 3.0 L
[2024-09-29] MEDS: ONDANSETRON INJ 4 MG/2 ML VIAL IV PUSH ×3 (10:07→20:35)
[2024-09-29 14:00] VITALS: BP 126/66; PULSE 88; RESP 18; TEMP 36.7; O2SAT 99
--- NOTE | 2024-09-29 14:33 | P.PNAN_ITS ---
Anes - Prog Note Post-Op Date/Time: 09/29/24 14:33 Cardiovascular status: normal Respiratory status: normal Airway patency: baseline Mental status: baseline Post-Op hydration status: normal Vital Signs: Last Vital Signs Temp 98.2 F 09/29/24 07:49 Pulse 68 09/29/24 07:49 Resp 18 09/29/24 07:49 BP 123/82 09/29/24 07:49 Pulse Ox 99 09/29/24 07:49 O2 Del Method Room Air 09/29/24 08:30 O2 Flow Rate 8 09/28/24 17:11 Pain Score (VAS): 0/10 I/O: Intake & Output 09/28/24 09/29/24 09/29/24 23:59 07:59 15:59 Intake Total 400 1206.7 290 Output Total 50 Balance 400 1156.7 290 Laboratory Tests 09/29/24 04:34 09/29/24 04:34 09/29/24 04:34 WBC 4.6 RBC 2.92 L Hgb 8.8 L Hct 27.8 L MCV 95.2 MCH 30.1 MCHC 31.7 L RDW 12.5 Plt Count 119 L MPV 12.7 H Immature Gran % (Auto) 1.1 H Neut % (Auto) 80.7 H Lymph % (Auto) 10.8 L [place] % (Auto) 6.5 Eos % (Auto) 0.7 Baso % (Auto) 0.2 Lymph # (Auto) 0.50 L [place] # (Auto) 0.3 Eos # (Auto) 0.0 Baso # (Auto) 0.0 Abs Immat Gran (auto) 0.05 H Absolute Neuts (auto) 3.7 Absolute Nucleated RBC 0.000 Nucleated RBC % 0.0 Sodium 140 Potassium 3.8 Chloride 113 H Carbon Dioxide 21 L Anion Gap 6 BUN 6 L Creatinine 0.65 L Estim Creat Clear Calc 111 Estimated GFR > 60 Glucose 108 Calcium 8.5 Total Bilirubin 0.2 AST 78 H ALT 99 H Alkaline Phosphatase 152 H Total Protein 5.8 L Albumin 3.0 L Post-procedural complaints: none Patient Feedback: Patient satisfied with anesthetic care.
[2024-09-29 20:26] VITALS: BP 132/68; PULSE 85; RESP 17; TEMP 36.8; O2SAT 98
[2024-09-29] MEDS: traZODone HCL 50 MG TABLET PO (20:35)
[2024-09-29 21:29] VITALS: PULSE 85; RESP 20; O2SAT 95
[2024-09-30] MEDS: LACTATED RINGERS 1,000 ML 100 ML IV CONT (02:46)
[2024-09-30] MEDS: PIPERACILLN/TAZ 3.375GM/NS50ML 3.375 GM/50 ML BAG IVPB ×4 (02:47→21:43)
[2024-09-30] MEDS: oxyCODONE/ACETAMINOPHEN (*CRX) 5-325 MG TABLET 1 TABLET PO ×5 (02:50→21:40)
[2024-09-30] MEDS: ONDANSETRON INJ 4 MG/2 ML VIAL IV PUSH ×5 (02:50→21:41)
[2024-09-30 04:50] VITALS: BP 116/67; PULSE 75; RESP 16; TEMP 36.8; O2SAT 95
[2024-09-30 05:30] LABS: Basophils Percent Auto 0.2 % (0.2-1.2); Eosinophils Absolute Auto 0.1 K/mm3 (0-0.3); Eosinophils Percent Auto 1.3 % (0-4.4); Hematocrit 26.8 % (37.0-47.0); Hemoglobin 8.5 g/dL (12.0-15.0); Immature Granulocyte Absolute 0.18 K/mm3 (0.00-0.031); Immature Granulocyte Percent A 3.3 % (0-0.5); Lymphocytes Absolute Auto 0.81 K/mm3 (0.9-3.2); Lymphocytes Percent Auto 14.7 % (18.3-44.2); Mean Corpuscular HGB Conc 31.7 g/dl (32-36); Mean Corpuscular Hemoglobin 29.7 pg (26-34); Mean Corpuscular Volume 93.7 fl (80-100); Mean Platelet Volume 11.5 fl (7.4-10.4); Monocytes Absolute Auto 0.4 K/mm3 (0.1-0.6); Monocytes Percent Auto 7.1 % (2.6-8.5); Neutrophils Percent Auto 73.4 % (45.5-73.1); Nucleated Red Blood Cells Perc 0.4 % (0.0-0.2); Platelet Count Result 129 k/mm3 (150-375); Red Blood Count 2.86 M/mm3 (4.2-5.4); Red Cell Distribution Width 12.6 % (11.5-14.5); White Blood Count 5.5 K/mm3 (4.5-10.0)
[2024-09-30 05:49] LABS: Alanine Aminotransferase 79 U/L (6-35); Albumin Level 2.8 g/dL (3.5-5.1); Alkaline Phosphatase 126 U/L (38-126); Anion Gap 6 mmol/L (4-12); Aspartate Amino Transferase 44 U/L (14-36); Bilirubin,Total 0.1 mg/dL (0.2-1.3); Blood Urea Nitrogen 10 mg/dL (7-17); Calcium 8.4 mg/dL (8.4-10.2); Carbon Dioxide 21 mmol/L (22-30); Chloride 112 mmol/L (98-107); Estimated CRCL calculation 108 ml/min; Estimated Glomerular Filt Rate > 60; Glucose 107 mg/dL (65-110); Potassium 3.6 mmol/L (3.4-5.0); Sodium 139 mmol/L (137-145); Total Protein 5.5 g/dL (6.3-8.2)
[2024-09-30] MEDS: TOPIRAMATE 100 MG TABLET PO (08:19)
[2024-09-30] MEDS: ENOXAPARIN 30 MG/0.3 ML SYRINGE SUB-Q ×2 (08:20→21:42)
--- NOTE | 2024-09-30 11:06 | PM.IMPN ---
Progress Note: A&P Assessment and Plan (1) Cholecystitis: Code(s): K81.9 - Cholecystitis, unspecified Status: Acute Assessment and Plan: Patient seen in ER on 09/22 -Seen in ER on 09/22 with abdominal pain, nausea, vomiting and chest pain that started the night before. During that ER visit she had normal labs with CT finding of distended gallbladder with possible gallstone. Started on Augmentin and told to follow up with Gen Surg or return to ER if worse - LFTs remain elevated but stable - Repeat CT showed acute cholecystitis and significant surrounding inflammatory change, extending into the hepatic flexure of the colon - Abdomen US showed acute cholecystitis without CBD dilation - HIDA scan showed no evident gallbladder activity consistent with acute cholecystitis - IV Zosyn started on 09/26, if diarrhea continues consider transitioning to a different antibiotic - Monitor vital signs, I and O's, check stool output, neuro status and patient is a fall risk - Monitor serum electrolytes and CBC - IV pain management - Gentle IV fluid resuscitation - Diet: Regular - Consult general surgery for further evaluation, appreciate assistance and recommendation Plan for lap cholecystectomy 09/28with Dr. Rodriguez - doing well over all but pain and nausea is still an issue - Blood cultures no growth to date. (2) Hypokalemia: Code(s): E87.6 - Hypokalemia Status: Acute Assessment and Plan: -Potassium 3.6, normal range. -Trend level. (3) Head lice: Code(s): B85.0 - Pediculosis due to Pediculus humanus capitis Status: Acute Assessment and Plan: -Head lice identified on admit. -Permetherin 5% ordered. Subjective Date/time seen: 09/30/24 11:06 Interval history: Patient sitting up in bed. Patient reports abdominal pain that is a 9, frequent, and cramping. Patient denies chest pain, palpitations, shortness of breath, headache, dizziness, or vomiting. Patient reports nausea and has received 3 doses of nausea medication today. Review of Systems Review of Systems: All systems reviewed & are unremarkable except as noted in HPI and below Exam Const: General: no acute distress and uncomfortable Resp: Effort & Inspection: normal respiratory effort Auscultation: clear to auscultation bilaterally Cardio: Rate: regular rate Rhythm: regular rhythm GI: GI Palp: Yes Soft to palpation and Yes Tenderness to palpation present (GI) (RUQ and incision areas. ) Auscultation: normal bowel sounds Other: SARAH drain draining serosanguineous drainage. Skin: Other: Incision sites are clean and dry with mild surrounding ecchymosis. No signs of infection, dehiscence, or necrosis. Neuro: Speech: normal speech Extrem: General: no pedal edema Psych: Mental Status: mental status grossly normal Affect: normal affect Objective Data Vital Signs Vital Signs: Vital Signs - 24 hr 09/29/24 14:00 09/29/24 20:00 09/29/24 20:26 Temperature 98.1 F 98.3 F Pulse Rate 88 85 Respiratory Rate 18 17 Blood Pressure 126/66 132/68 Pulse Oximetry 99 98 Oxygen Delivery Room Air Fraction of Inspired Oxygen 09/29/24 21:29 09/30/24 04:50 09/30/24 08:20 Temperature 98.3 F Pulse Rate 85 75 Respiratory Rate 20 16 Blood Pressure 116/67 Pulse Oximetry 95 95 Oxygen Delivery Room Air Room Air Fraction of Inspired Oxygen 21 Intake/Output Intake/Output: Intake & Output 09/27/24 09/28/24 09/29/24 09/30/24 23:59 23:59 23:59 23:59 Intake Total 3060 500 3076.7 1590 Output Total 80 30 Balance 3060 500 2996.7 1560 Meds/Results Medications: Active Medications Generic Name Dose Route Start Last Admin Trade Name Freq PRN Reason Stop Dose Admin Acetaminophen 1,000 mg 09/26/24 21:01 Acetaminophen 500 Mg Tablet PO Q8HR PRN fever or pain 1-3 Diphenhydramine HCl 25 mg 09/28/24 18:13 Diphenhydramine Hcl Inj 50 Mg/Ml Vial IV PUSH Q6H PRN Itching Enoxaparin Sodium 30 mg 09/26/24 21:00 09/30/24 08:20 Enoxaparin 30 Mg/0.3 Ml Syringe SUB-Q 30 mg Q12HR FLORENITNO Administration Piperacillin/Tazobactam/Dextrose 3.375 gm in 50 mls @ 100 mls/hr 09/26/24 21:00 09/30/24 08:50 Zosyn 3.375 Gm/Ns 50 Ml IVPB Infused Q6H FLORENTINO Infusion Ibuprofen 800 mg in 200 mls @ 400 mls/hr 09/26/24 20:09 09/27/24 21:30 Caldolor 800 Mg/200 Ml IVPB Infused Q6H PRN Infusion Pain Rated 1-3 Lactated Ringer's 1,000 mls @ 100 mls/hr 09/28/24 18:13 09/30/24 02:46 Lr - Lactated Ringers Iv IV CONT 100 mls/hr .Q10H FLORENTINO Administration Morphine Sulfate 2 mg 09/28/24 18:13 Morphine Sulfate (*Crx) 2 Mg/Ml Inj IV PUSH Q2H PRN Breakthrough Pain Rated 4-6 or NPO Morphine Sulfate 4 mg 09/28/24 18:13 09/29/24 12:38 Morphine Sulfate (*Crx) 4 Mg/Ml Inj IV PUSH 4 mg Q2H PRN Administration Breakthrough Pain Rated 7-10 or NPO Naloxone HCl 0.1 mg 09/28/24 18:13 Naloxone Hcl 0.4 Mg/Ml Vial IV PUSH Q2M PRN Opiate Reversal Ondansetron HCl 4 mg 09/26/24 17:15 09/30/24 08:21 Ondansetron Inj 4 Mg/2 Ml Vial IV PUSH 4 mg Q4H PRN Administration Nausea Oxycodone/Acetaminophen 1 tablet 09/28/24 18:13 09/30/24 08:19 Oxycodone/Acetaminophen (*Crx) 5-325 Mg Tablet PO 1 tablet Q4H PRN Administration Pain Rated 4-6 Paroxetine HCl 40 mg 09/26/24 20:11 Paroxetine 20 Mg Tablet PO DAILY PRN anxiety Topiramate 100 mg 09/27/24 09:00 09/30/24 08:19 Topiramate 100 Mg Tablet PO 100 mg DAILY FLORENTINO Administration Trazodone HCl 50 mg 09/26/24 20:11 09/29/24 20:35 Trazodone Hcl 50 Mg Tablet PO 50 mg HS PRN Administration insomnia Radiology Results: ITS Impressions Abdomen/Pelvis CT 09/26/24 16:14 IMPRESSION: Acute cholecystitis, as detailed above. Significant surrounding inflammatory change, extending into the hepatic flexure the colon. Abdomen Ultrasound 09/26/24 17:43 IMPRESSION: Acute cholecystitis, as detailed above. No common bile duct dilatation. Hepatomegaly. Hepatobiliary Scan Nuclear Medicine 09/29/24 12:51 IMPRESSION: 1. Normal postcholecystectomy hepatobiliary scan with no evident bile leak. Labs Labs: Laboratory Results - last 24 hr 09/30/24 05:02 WBC 5.5 RBC 2.86 L Hgb 8.5 L Hct 26.8 L MCV 93.7 MCH 29.7 MCHC 31.7 L RDW 12.6 Plt Count 129 L MPV 11.5 H Immature Gran % (Auto) 3.3 H Neut % (Auto) 73.4 H Lymph % (Auto) 14.7 L [place] % (Auto) 7.1 Eos % (Auto) 1.3 Baso % (Auto) 0.2 Lymph # (Auto) 0.81 L [place] # (Auto) 0.4 Eos # (Auto) 0.1 Baso # (Auto) 0.0 Abs Immat Gran (auto) 0.18 H Absolute Neuts (auto) 4.0 Absolute Nucleated RBC 0.020 H Nucleated RBC % 0.4 H Sodium 139 Potassium 3.6 Chloride 112 H Carbon Dioxide 21 L Anion Gap 6 BUN 10 Creatinine 0.67 L Estim Creat Clear Calc 108 Estimated GFR > 60 Glucose 107 Calcium 8.4 Total Bilirubin 0.1 L AST 44 H ALT 79 H Alkaline Phosphatase 126 Total Protein 5.5 L Albumin 2.8 L Quality VTE Prophylaxis VTE prophylaxis: mechanical ordered
--- NOTE | 2024-09-30 12:21 | PM.PNGS ---
Progress Note: A&P Assessment and Plan (1) Cholecystitis: Code(s): K81.9 - Cholecystitis, unspecified Status: Acute Assessment and Plan: Patient healing as expected following difficult laparoscopic cholecystectomy. Incisional pain controlled. Tolerating a regular diet. Will continue to monitor SARAH drain. No bilious output and HIDA scan yesterday negative for bile leak. Continue IV antibiotics. Plan I have discussed the patient's case and plan of care with Dr. Rodriguez. Subjective Subjective Date/Time Seen: 09/30/24 12:21 Post Op day: 2 (Laparoscopic cholecystectomy) Patient reports: tolerating a regular diet, flatus, bowel movement and afebrile Interval history: Patient reports she is tolerating her diet well. Incisional pain is being controlled with Percocet. She had zofran earlier this morning but nursing reports she was asking for food almost immediately after getting it. When asking the patient, she denies any issues with tolerating her diet and denies nausea. No vomiting. No other complaints at this time. She is walking to the bathroom well without issues. 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 Exam Const: General: comfortable and no acute distress Orientation/consciousness: patient oriented x3 GI: Inspection: non-distended, incision (dry and glue intact, no erythema or drainage) and other (SARAH drain with minimal serosanguineous drainage, no bilious-appearing output) GI Palp: Yes Soft to palpation, Yes Tenderness to palpation present (GI) (tenderness near incisions), No Guarding due to palpation present (GI) and No Rebound tenderness present Auscultation: normal bowel sounds Objective Data Vital Signs Vital Signs: Vital Signs - 24 hr 09/29/24 14:00 09/29/24 20:00 09/29/24 20:26 Temperature 98.1 F 98.3 F Pulse Rate 88 85 Respiratory Rate 18 17 Blood Pressure 126/66 132/68 Pulse Oximetry 99 98 Oxygen Delivery Room Air Fraction of Inspired Oxygen 09/29/24 21:29 09/30/24 04:50 09/30/24 08:20 Temperature 98.3 F Pulse Rate 85 75 Respiratory Rate 20 16 Blood Pressure 116/67 Pulse Oximetry 95 95 Oxygen Delivery Room Air Room Air Fraction of Inspired Oxygen 21 Intake/Output Intake/Output: Intake & Output 09/27/24 09/28/24 09/29/24 09/30/24 23:59 23:59 23:59 23:59 Intake Total 3060 500 3076.7 1590 Output Total 80 30 Balance 3060 500 2996.7 1560 Meds/Results Medications: Active Medications Generic Name Dose Route Start Last Admin Trade Name Freq PRN Reason Stop Dose Admin Acetaminophen 1,000 mg 09/26/24 21:01 Acetaminophen 500 Mg Tablet PO Q8HR PRN fever or pain 1-3 Diphenhydramine HCl 25 mg 09/28/24 18:13 Diphenhydramine Hcl Inj 50 Mg/Ml Vial IV PUSH Q6H PRN Itching Enoxaparin Sodium 30 mg 09/26/24 21:00 09/30/24 08:20 Enoxaparin 30 Mg/0.3 Ml Syringe SUB-Q 30 mg Q12HR FLORENTINO Administration Piperacillin/Tazobactam/Dextrose 3.375 gm in 50 mls @ 100 mls/hr 09/26/24 21:00 09/30/24 08:50 Zosyn 3.375 Gm/Ns 50 Ml IVPB Infused Q6H FLORENTINO Infusion Ibuprofen 800 mg in 200 mls @ 400 mls/hr 09/26/24 20:09 09/27/24 21:30 Caldolor 800 Mg/200 Ml IVPB Infused Q6H PRN Infusion Pain Rated 1-3 Lactated Ringer's 1,000 mls @ 100 mls/hr 09/28/24 18:13 09/30/24 02:46 Lr - Lactated Ringers Iv IV CONT 100 mls/hr .Q10H FLORENTINO Administration Morphine Sulfate 2 mg 09/28/24 18:13 Morphine Sulfate (*Crx) 2 Mg/Ml Inj IV PUSH Q2H PRN Breakthrough Pain Rated 4-6 or NPO Morphine Sulfate 4 mg 09/28/24 18:13 09/29/24 12:38 Morphine Sulfate (*Crx) 4 Mg/Ml Inj IV PUSH 4 mg Q2H PRN Administration Breakthrough Pain Rated 7-10 or NPO Naloxone HCl 0.1 mg 09/28/24 18:13 Naloxone Hcl 0.4 Mg/Ml Vial IV PUSH Q2M PRN Opiate Reversal Ondansetron HCl 4 mg 09/26/24 17:15 09/30/24 08:21 Ondansetron Inj 4 Mg/2 Ml Vial IV PUSH 4 mg Q4H PRN Administration Nausea Oxycodone/Acetaminophen 1 tablet 09/28/24 18:13 09/30/24 08:19 Oxycodone/Acetaminophen (*Crx) 5-325 Mg Tablet PO 1 tablet Q4H PRN Administration Pain Rated 4-6 Paroxetine HCl 40 mg 09/26/24 20:11 Paroxetine 20 Mg Tablet PO DAILY PRN anxiety Topiramate 100 mg 09/27/24 09:00 09/30/24 08:19 Topiramate 100 Mg Tablet PO 100 mg DAILY FLORENTINO Administration Trazodone HCl 50 mg 09/26/24 20:11 09/29/24 20:35 Trazodone Hcl 50 Mg Tablet PO 50 mg HS PRN Administration insomnia Radiology Results: ITS Impressions Abdomen/Pelvis CT 09/26/24 16:14 IMPRESSION: Acute cholecystitis, as detailed above. Significant surrounding inflammatory change, extending into the hepatic flexure the colon. Abdomen Ultrasound 09/26/24 17:43 IMPRESSION: Acute cholecystitis, as detailed above. No common bile duct dilatation. Hepatomegaly. Hepatobiliary Scan Nuclear Medicine 09/29/24 12:51 IMPRESSION: 1. Normal postcholecystectomy hepatobiliary scan with no evident bile leak. Labs Labs: Laboratory Results - last 24 hr 09/30/24 05:02 WBC 5.5 RBC 2.86 L Hgb 8.5 L Hct 26.8 L MCV 93.7 MCH 29.7 MCHC 31.7 L RDW 12.6 Plt Count 129 L MPV 11.5 H Immature Gran % (Auto) 3.3 H Neut % (Auto) 73.4 H Lymph % (Auto) 14.7 L [place] % (Auto) 7.1 Eos % (Auto) 1.3 Baso % (Auto) 0.2 Lymph # (Auto) 0.81 L [place] # (Auto) 0.4 Eos # (Auto) 0.1 Baso # (Auto) 0.0 Abs Immat Gran (auto) 0.18 H Absolute Neuts (auto) 4.0 Absolute Nucleated RBC 0.020 H Nucleated RBC % 0.4 H Sodium 139 Potassium 3.6 Chloride 112 H Carbon Dioxide 21 L Anion Gap 6 BUN 10 Creatinine 0.67 L Estim Creat Clear Calc 108 Estimated GFR > 60 Glucose 107 Calcium 8.4 Total Bilirubin 0.1 L AST 44 H ALT 79 H Alkaline Phosphatase 126 Total Protein 5.5 L Albumin 2.8 L
[2024-09-30 14:00] VITALS: BP 146/83; PULSE 79; RESP 18; TEMP 36.6; O2SAT 99
[2024-09-30 20:18] VITALS: BP 115/52; PULSE 84; RESP 24; TEMP 36.9; O2SAT 98
[2024-10-01] MEDS: PIPERACILLN/TAZ 3.375GM/NS50ML 3.375 GM/50 ML BAG IVPB ×2 (02:32→09:12)
[2024-10-01 04:14] VITALS: BP 121/69; PULSE 57; RESP 20; TEMP 36.4; O2SAT 97
[2024-10-01] MEDS: ONDANSETRON INJ 4 MG/2 ML VIAL IV PUSH ×2 (04:30→09:12)
[2024-10-01] MEDS: oxyCODONE/ACETAMINOPHEN (*CRX) 5-325 MG TABLET 1 TABLET PO ×2 (04:30→09:12)
[2024-10-01 05:40] LABS: Basophils Percent Auto 0.4 % (0.2-1.2); Eosinophils Absolute Auto 0.1 K/mm3 (0-0.3); Eosinophils Percent Auto 2.2 % (0-4.4); Hematocrit 28.2 % (37.0-47.0); Immature Granulocyte Absolute 0.37 K/mm3 (0.00-0.031); Immature Granulocyte Percent A 7.5 % (0-0.5); Lymphocytes Absolute Auto 0.78 K/mm3 (0.9-3.2); Lymphocytes Percent Auto 15.8 % (18.3-44.2); Mean Corpuscular HGB Conc 31.9 g/dl (32-36); Mean Corpuscular Hemoglobin 29.9 pg (26-34); Mean Corpuscular Volume 93.7 fl (80-100); Mean Platelet Volume 11.6 fl (7.4-10.4); Monocytes Absolute Auto 0.3 K/mm3 (0.1-0.6); Monocytes Percent Auto 5.9 % (2.6-8.5); Neutrophils Absolute Auto 3.4 K/mm3 (1.3-6.7); Neutrophils Percent Auto 68.2 % (45.5-73.1); Platelet Count Result 146 k/mm3 (150-375); Red Blood Count 3.01 M/mm3 (4.2-5.4); Red Cell Distribution Width 12.7 % (11.5-14.5)
[2024-10-01 05:51] LABS: Alanine Aminotransferase 66 U/L (6-35); Albumin Level 3.2 g/dL (3.5-5.1); Alkaline Phosphatase 106 U/L (38-126); Anion Gap 8 mmol/L (4-12); Aspartate Amino Transferase 38 U/L (14-36); Bilirubin,Total 0.2 mg/dL (0.2-1.3); Blood Urea Nitrogen 8 mg/dL (7-17); Calcium 8.9 mg/dL (8.4-10.2); Carbon Dioxide 22 mmol/L (22-30); Chloride 109 mmol/L (98-107); Estimated CRCL calculation 97 ml/min; Estimated Glomerular Filt Rate > 60; Glucose 127 mg/dL (65-110); Potassium 3.9 mmol/L (3.4-5.0); Sodium 139 mmol/L (137-145); Total Protein 6.3 g/dL (6.3-8.2)
[2024-10-01] MEDS: TOPIRAMATE 100 MG TABLET PO (09:12)
[2024-10-01] MEDS: ENOXAPARIN 30 MG/0.3 ML SYRINGE SUB-Q (09:12)
--- NOTE | 2024-10-01 10:21 | P.DS_ITS ---
DS: Admitting Diagnosis Discharge Date 10/01/2024 Admitting Diagnosis Abdominal pain DS: Discharge Diagnosis Discharge Diagnosis (1) Cholecystitis: Code(s): K81.9 - Cholecystitis, unspecified Status: Acute (2) Hypokalemia: Code(s): E87.6 - Hypokalemia Status: Acute (3) Head lice: Code(s): B85.0 - Pediculosis due to Pediculus humanus capitis Status: Acute DS: Summary Hospital Course Hospital Course: This is a 34-year-old female patient who reports that she started having upper abdominal pain nausea and vomiting on 09/21 in she went to be seen another facility where she was told nothing was wrong. The next day on 09/22 patient came to this ER had a CT scan and lab work done initial read on CT scan was no acute abnormality, later over-read by local radiologist with findings of gallbladder distension and possible obstructing stone at the neck of the gallbladder. Patient states she was not made aware of change in imaging read. Radiology Results: ITS Impressions Abdomen/Pelvis CT 09/26/24 16:14 IMPRESSION: Acute cholecystitis, as detailed above. Significant surrounding inflammatory change, extending into the hepatic flexure the colon. Abdomen Ultrasound 09/26/24 17:43 IMPRESSION: Acute cholecystitis, as detailed above. No common bile duct dilatation. Hepatomegaly. Hepatobiliary Scan Nuclear Medicine 09/29/24 12:51 IMPRESSION: 1. Normal postcholecystectomy hepatobiliary scan with no evident bile leak. 09/28 Cholecystectomy and SARAH drain placed. Patient received IV Zosyn. Patient transitioned to oral antibiotics and to follow up with surgery outpatient. Blood cultures no growth to date. Status at Discharge Functional status at discharge: independent ambulation Time Spent with Patient Time attestation: Total time spent providing and/or coordinating discharge services: Time spent: Less than 30 minutes Exam Const: General: no acute distress and uncomfortable Resp: Effort & Inspection: normal respiratory effort Auscultation: clear to auscultation bilaterally Cardio: Rate: regular rate Rhythm: regular rhythm GI: GI Palp: Yes Soft to palpation Auscultation: normal bowel sounds Other: SARAH drain draining serosanguineous drainage. Extrem: General: no pedal edema Psych: Mental Status: mental status grossly normal Affect: normal affect DS: Data Data Completed and Pending Completed studies during hospitalization: Pending at discharge 09/28/24 16:21 Surgical [PTH] Routine Labs on day of discharge: Labs from last 24 hours 10/01/24 05:30 WBC 5.0 RBC 3.01 L Hgb 9.0 L Hct 28.2 L MCV 93.7 MCH 29.9 MCHC 31.9 L RDW 12.7 Plt Count 146 L MPV 11.6 H Immature Gran % (Auto) 7.5 H Neut % (Auto) 68.2 Lymph % (Auto) 15.8 L [place] % (Auto) 5.9 Eos % (Auto) 2.2 Baso % (Auto) 0.4 Lymph # (Auto) 0.78 L [place] # (Auto) 0.3 Eos # (Auto) 0.1 Baso # (Auto) 0.0 Abs Immat Gran (auto) 0.37 H Absolute Neuts (auto) 3.4 Absolute Nucleated RBC 0.000 Nucleated RBC % 0.0 Sodium 139 Potassium 3.9 Chloride 109 H Carbon Dioxide 22 Anion Gap 8 BUN 8 Creatinine 0.75 Estim Creat Clear Calc 97 Estimated GFR > 60 Glucose 127 H Calcium 8.9 Total Bilirubin 0.2 AST 38 H ALT 66 H Alkaline Phosphatase 106 Total Protein 6.3 Albumin 3.2 L Preliminary micro results at discharge 09/26/24 14:28 Blood Culture - Preliminary Blood 09/26/24 14:26 Blood Culture - Preliminary Blood Discharge Plan Discharge Attending physician on discharge: Zane Mac Consulting providers: Lo Rollins; Hua Rodriguez Discharging Clinician: Jeane Moffett Anticipated Discharge Date/Time: 10/01/24 10:15 Patient Disposition: Home Activity: may shower and no straining Diet: low fat Wound Care Instructions: keep dressing dry and remove dressing to shower Discharge Instructions: * Ambulate 3-4 x per day and as tolerated. * No lifting over 15-20lbs. * May bathe or shower. * Stairs are OK. * May drive a car in 3 days. * Remove any dressings before shower and replace after. * Re-dress bandage to drain site daily for 3 days. After that, okay to leave drain site open. Thank you for entrusting [facility] with your healthcare! Patient Instructions: Antibiotic Form, Low Fat Diet (DC), Opioid Safety (DC), Laparoscopic Cholecystectomy (DC) Patient Language: Turkmen Stand Alone Forms: General Discharge Information, Work/School Release IP Follow-up/Referrals: Hua Rodriguez MD [Physician] - 2 Weeks Discharge Medications: Continued trazodone 50 mg tablet 50 mg PO HS PRN (Reason: insomnia) paroxetine HCl 40 mg tablet 40 mg PO DAILY PRN (Reason: anxiety) topiramate 100 mg tablet 100 mg PO DAILY acetaminophen [Acetaminophen Extra Strength] 500 mg tablet 1,000 mg PO .q8 PRN (Reason: fever or pain) Qty: 60 0RF ibuprofen 800 mg tablet 800 mg PO TID PRN (Reason: pain (scale score 4-6)) Qty: 60 0RF Held meloxicam 15 mg tablet 15 mg PO DAILY Qty: 15 0RF Hold Instructions: Resume on 10/12/24. Do not take meloxicam while taking ibuprofen No Action oxycodone-acetaminophen [Percocet] 5-325 mg tablet 1 tablet PO Q6H PRN (Reason: pain) Qty: 12 0RF amoxicillin-pot clavulanate 875-125 mg tablet 1 tablet PO BID Qty: 14 0RF Date of admission: 09/28/24 18:13 Primary Care Provider: Michel Neff Admitting Provider: Zane Mac Attending physician on admission: Zane Mac Condition: Improved Hospitalist MIPS Heart Failure (Exclusion) Patient has history of Heart Transplant or Left Ventricular Assistive Device?: No IF YES, STOP HERE Heart Failure (Qualifier) Patient has current or prior documentation of LVEF less than or equal to 40%, or mod/servere depressed LVSF?: No IF NO, STOP HERE
--- NOTE | 2024-10-01 17:32 | PM.PNGS ---
Progress Note: A&P Assessment and Plan (1) Cholelithiasis with acute cholecystitis with biliary obstruction: Qualifiers: Cholelithiasis location: gallbladder Qualified Code(s): K80.01 - Calculus of gallbladder with acute cholecystitis with obstruction Code(s): K80.01 - Calculus of gallbladder with acute cholecystitis with obstruction Status: Acute Assessment and Plan: Doing well. Will discontinue SARAH drain. Okay to discharge today on Augmentin antibiotics for another 5 days. I will see her in the office in 2 weeks. She will be off work for 2 weeks. Subjective Subjective Date/Time Seen: 10/01/24 09:32 Post Op day: 3 Patient reports: no new complaints, feels better, pain is less, tolerating a regular diet, voiding w/o difficulty, bowel movement and afebrile Exam GI: Inspection: incision (Incisions dry and healing well, SARAH fluid serosanguineous) GI Palp: Yes Soft to palpation, No Tenderness to palpation present (GI) and No Guarding due to palpation present (GI) Objective Data Vital Signs Vital Signs: Vital Signs - 24 hr 09/30/24 20:18 09/30/24 21:40 10/01/24 04:14 Temperature 36.9 C 36.4 C L Pulse Rate 84 57 L Respiratory Rate 24 H 20 Blood Pressure 115/52 L 121/69 Pulse Oximetry 98 97 Oxygen Delivery Room Air 10/01/24 09:10 Temperature Pulse Rate Respiratory Rate Blood Pressure Pulse Oximetry Oxygen Delivery Room Air Intake/Output Intake/Output: Intake & Output 09/28/24 09/29/24 09/30/24 10/01/24 23:59 23:59 23:59 23:59 Intake Total 500 3076.7 3570 1160 Output Total 80 55 30 Balance 500 2996.7 3515 1130 Meds/Results Radiology Results: ITS Impressions Abdomen/Pelvis CT 09/26/24 16:14 IMPRESSION: Acute cholecystitis, as detailed above. Significant surrounding inflammatory change, extending into the hepatic flexure the colon. Abdomen Ultrasound 09/26/24 17:43 IMPRESSION: Acute cholecystitis, as detailed above. No common bile duct dilatation. Hepatomegaly. Hepatobiliary Scan Nuclear Medicine 09/29/24 12:51 IMPRESSION: 1. Normal postcholecystectomy hepatobiliary scan with no evident bile leak. Labs Labs: Laboratory Results - last 24 hr 10/01/24 05:30 WBC 5.0 RBC 3.01 L Hgb 9.0 L Hct 28.2 L MCV 93.7 MCH 29.9 MCHC 31.9 L RDW 12.7 Plt Count 146 L MPV 11.6 H Immature Gran % (Auto) 7.5 H Neut % (Auto) 68.2 Lymph % (Auto) 15.8 L [place] % (Auto) 5.9 Eos % (Auto) 2.2 Baso % (Auto) 0.4 Lymph # (Auto) 0.78 L [place] # (Auto) 0.3 Eos # (Auto) 0.1 Baso # (Auto) 0.0 Abs Immat Gran (auto) 0.37 H Absolute Neuts (auto) 3.4 Absolute Nucleated RBC 0.000 Nucleated RBC % 0.0 Sodium 139 Potassium 3.9 Chloride 109 H Carbon Dioxide 22 Anion Gap 8 BUN 8 Creatinine 0.75 Estim Creat Clear Calc 97 Estimated GFR > 60 Glucose 127 H Calcium 8.9 Total Bilirubin 0.2 AST 38 H ALT 66 H Alkaline Phosphatase 106 Total Protein 6.3 Albumin 3.2 L
== END 2024-10-01 12:42 | disposition home or self-care (01) | DRG 263 ==
LOC: ANHED 17:25 → ANH2MED 18:08
PROVIDERS: Nurse Practitioner; Surgery; Admitting Provider General Practice; Emergency Provider Registered Nurse; PCP Internal Medicine; Visit Provider Nurse Practitioner Family
PROC: 0FT44ZZ Resection of Gallbladder, Percutaneous Endoscopic Approach (ICD-10-PCS; CPT 47562; principal; 2024-09-28 14:00)
DX: K80.01 Calculus of gallbladder with acute cholecystitis with obstruction (principal); K82.1 Hydrops of gallbladder; Q44.1 Other congenital malformations of gallbladder; E87.6 Hypokalemia; B85.0 Pediculosis due to Pediculus humanus capitis; F20.9 Schizophrenia, unspecified; F31.9 Bipolar disorder, unspecified
CPT/HCPCS: 36415; 74177; 76705; 78226; 80053; 81001; 82607; 82728; 82746; 83540; 83550; 83605; 83690; 83735; 85025; 86140; 86850; 86900; 86901; 87040; 88304; 93005; 96361; 96365; 96366; 96372; 96374; 96375; 96376; 99285; A9270; A9537; G0378; G0379; J1100; J1171; J1200; J1650; J1741; J1756; J1885; J2003; J2250; J2270; J2405; J2543; J2704; J3010; J3480; J7030; J7040; J7050; J7120; Q9967

== ENCOUNTER 2024-11-26 14:20 | Emergency (ER) | payer MEDICAID, SELFPAY ==
--- OUTSIDE RECORDS SUMMARY | 2024-11-26 14:23 | XMS_ITS | Clinical Summary ---
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 This disclosure is being madepursuant to the Care Everywhere program and may not contain all information available regarding this patient. 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 Gender Identity Not on file Sexual Orientation Not on file Plan of Treatment Health Maintenance Due Date Last Done Comments HIV SCREENING 02/02/2003 HEPATITIS C SCREENING 01/29/2006 DTAP/TDAP/TD VACCINES (1 - Tdap) 02/02/2007 HEPATITIS B VACCINE (1 of 3 - 19+ 3-dose series) 02/02/2007 PAP SMEAR 02/02/2009 HPV VACCINE (1 - 3-dose SCDM series) 02/02/2015 COVID-19 VACCINE (2023-2 5 season) 2023 DEPRESSION SCREENING 04/14/2024 INFLUENZA VACCINE (#1) 2024 ZOSTER VACCINE (1 of 2) 02/02/2038 [...] to complete this topic Insurance [facility] MEDICAID [employer] [place] SELF PAY NO INSURANCE Member Subscriber Plan / Payer (Ef fective for All Dates) Name:Manisha Jiménez Member ID:Not on file Relation to Subscriber:Not on file Name:MANISHA JIMÉNEZ Subscriber ID:Not on file (Home) Address: [address] [place] [address] Payer ID:Not on file Group ID:Not on file Type:Self Pay Address: [place], [place] [facility] HEALTH PLAN MEDICAID - OUT OF STATE
--- OUTSIDE RECORDS SUMMARY | 2024-11-26 14:23 | XMS_ITS ---
Author Organization [facility] Address [address] [place] [address] Care Team Providers Care Clinical Professor Name Role Phone Michel Neff Primary Care Provider Habib, Arif Unavailable [phone] [facility] [place] [facility] Unav ailable Unavailable REASON FOR VISIT PCP FU Social History Sex Assigned At : Social History Observation Description Sex Assigned At Female Encounters Encounter Location Date Provider Diagnosis [address] [place] [address] 11/15/2024 Michel Neff Plan Of Treatment No Information Progress Notes * Chante LUNDY: 8 (34 yo F)Acc No.[id number]:11/15/2024 UNLOCKED PROGRESS NOTE Progress Notes Patient: Manisha COATES Provider: Chelsea Neff :1990 A ge:34 Y S ex:Female Date:11/15/2024 Address:[facility] [address] [place], [place] [id number] Subjective: * Chief Complaints: * 1 . PCP FU. * Medical History: Objective: * Vitals: Assessment: Plan: * Treatment: * * Electronic signature of Susy Neff , [id number] on 11/26/2024 at 02:22 PM CDT Sign off status: Pending * Provider: Chelsea Neff Date: 11/15/2024 Generated for Sunil cruz/Rey/eTransmitting on: 0 11/26/2024 02:22 PM CDT
--- OUTSIDE RECORDS SUMMARY | 2024-11-26 14:23 | XMS_ITS | Clinical Summary ---
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 Name Role Phone Michel Neff MD Primary Care Provider [phone] Allergies No known active allergies Medications Invega Sustenna 117 mg/0.75 mL syringe 08/26/19 24 Active meloxicam (MOBIC) 15 mg tablet Take 1 tablet (15 mg total) by mouth daily 07/19/19 25 Active ketoconazole (NIZORAL) 2 % cream APPLY TOPICALLY TO THE AFFECTED AREA DAILY 08/03/19 25 Active PARoxetine (PAXIL) 40 mg tablet daily Active hydrOXYzine (ATARAX) 25 mg tablet every 12 hours 10/24/19 24 Active topiramate (TOPAMAX) 100 mg tablet Take 1 tablet (100 mg total) by mouth daily 09/16/19 25 Active traZODone (DESYREL) 50 mg tablet Take 1 tablet (50 mg total) by mouth nightly 09/15/19 25 Active docusate sodium (COLACE) 100 mg capsuleIndicatio ns:constipation Take 1 capsule (100 mg total) by mouth 2 (two) times a day for 7 days 14 capsule 11/12/19 25 Active hyoscyamine (LEVSIN) 0.125 mg tabletIndication s:Urinary Incontinence Take 1 tablet (0.125 mg total) by mouth every 4 (four) hours as needed for cramping (stomach spasms, hiccups) for up to 3 days 18 tablet 11/12/19 25 Active HYDROcodone-acet aminophen (NORCO) 5-325 mg per tablet 0 11/19/19 25 Active Narcan 4 mg/actuation spray,non-aeroso l 0 11/12/19 25 Active Ozempic 0.25 mg or 0.5 mg (2 mg/3 mL) pen injector injection 0.25 MG Subcutaneous WEEKLY 12/22/19 24 025 Discontinu ed(Therapy completed) acetaminophen (TYLENOL) 500 mg tablet TAKE 2 TABLETS BY MOUTH EVERY 8 HOURS NEEDED FOR PAIN OR FEVER 09/24/19 25 025 Discontinu ed(Stop Taking at Discharge) amoxicillin-clav ulanate (AUGMENTIN) 875-125 mg per tablet Take 1 tablet by mouth 2 (two) times a day 10/02/19 25 025 Discontinu ed(Therapy completed) oxyCODONE-acetam inophen (PERCOCET) 5-325 mg per tablet Take by mouth every 6 (six) hours as needed 10/02/19 25 025 Discontinu ed(Therapy completed) lidocaine (LIDODERM) 5 % 09/16/19 025 Discontinu ed(Therapy completed) HYDROcodone-acet aminophen (NORCO) 5-325 mg per tabletIndication s:Pain Take 1 tablet by mouth every 6 (six) hours as needed for pain for up to 5 days 20 tablet 11/12/19 25 025 ondansetron (ZOFRAN) 4 mg tablet Take 1 tablet (4 mg total) by mouth every 6 (six) hours as needed for nausea or vomiting for up to 14 days 30 tablet 11/12/19 25 025 Active Problems Problem Noted Date Diagnosed Date Morbid obesity 10/22/2024 Heartburn 08/05/2024 Morbid obesity due to excess calories 09/04/2023 Assessment & Plan (11/23/2024 9:13 AM CDT): Continue to advance diet as laid out in post bariatric handout. We have stressed the importance to favor protein supplement before anything else and fluid intake. Continue bowel regimen if needed to avoid straining. Can return to work if has light duty. No heavy lifting greater than 20 lb for 4 weeks. No submerging incisions for 2 weeks. We will see the patient back in 4 weeks. She will call sooner if anything changes. Assessment & Plan (11/04/2024 9:32 AM CDT): We have stressed the importance of following the preoperative diet to shrink down the size of the liver. We will encourage her to continue to work with the dietitian as well as to attend the monthly support group meetings. We will discuss with the patient hospital stay and time needed off work. Preadmission testing and consent to be obtained. All questions answered. Assessment & Plan (10/19/2024 3:20 PM CDT): Continue small frequent meals. Continue to work with the dietitian. As we have reached visit 6 we will now prepare for submission for insurance approval. We have discussed hospital length of stay for the surgery. We we will student financial services counselor the patient to avoid for 18 months after surgery. Preoperative labs showed a low vitamin-D. We will discuss supplementation to replace this. We will encourage her until then to continue to attend the support groups. A preoperative diet handout has been given for preoperative shrinkage of the liver in preparation for surgery. All questions have been answered. Preadmission testing will be sent in and consent to be obtained. Assessment & Plan (09/07/2024 9:52 AM CDT): [...] Encounters Date Type Department Care Team Description 5 9:00 AM CDT Office Visit [facility] [address] [facility] [address] [place] [address] Raul Askew MD Morbid obesity due to excess calories (HCC) (Primary Dx); Status post gastric surgery 5 [facility] Post Discharge Follow up phone call [facility] [address] [place] [address] Simona Rivera 5 10:46 AM CDT Anesthesia Event [facility] Operating Room 1 [place] [address] Amarjit Borges MD Kory, Christopher James, MD 5 10:30 AM CDT - 5 12:30 PM CDT Surgery [facility] Operating Room 1 [place] [address] Raul Askew MD LAPAROSCOPIC GASTRECTOMY - SLEEVE with hiatal hernia repair 5 6:33 AM CDT - 5 3:49 PM CDT Hospital Encounter [facility] 1 [place] [address] Raul Askew MD Morbid obesity (HCC) Discharge Disposition: Discharge to home or self care 5 8:30 AM CDT Office Visit [address] [place] [address] Raul Askew MD Morbid obesity due to excess calories (HCC) (Primary Dx) 5 11:38 AM CDT - 5 11:59 PM CDT Hospital Encounter [facility] Nutrition and Diabetic Education 1 [facility] [address] [place] [address] Sanchez, Nubia Roberts RD Discharge Disposition: Discharge to home or self care 5 11:20 AM CDT Office Visit [address] [place] [address] Raul Askew MD Morbid obesity due to excess calories (HCC) (Primary Dx) 5 12:25 PM CDT Anesthesia Event [address] [address] Cuauhtemoc Gaona MD 5 12:00 PM CDT - 5 12:30 PM CDT Surgery [address] [address] Raul Askew MD ESOPHAGOGASTRODUODENOSCOPY BIOPSY 5 11:00 AM CDT - 5 1:10 PM CDT Hospital Encounter [address] [address] Raul Askew MD Heartburn Discharge Disposition: Discharge to home or self care 5 10:05 AM CDT Lab [address] Morbid obesity due to excess calories (HCC) 5 9:40 AM CDT Office Visit [address] [place] [address] Raul Askew MD Morbid obesity due to excess calories (HCC) (Primary Dx) from Last 3 Months Surgical History Surgery Date Site/Laterality Comments SECTION TUBAL LIGATION CHOLECYSTECTOMY 09/28/2024 [facility] SLEEVE GASTROPLASTY 11/04/2024 Medical History Medical History Date Comments Depression Family History Relation Name Status Comments Father Alive Mother Social History Tobacco Use Types Packs/Day Years Used Date Smoking Tobacco: Never Passive Smoke Exposure: Never Smokeless Tobacco: Never Tobacco Cessation:Counseling Given: Not Answered AUDIT-C Answer Date Recorded Q1: How often do you have a drink containing alcohol? Never 11/10/2024 Q2: How many drinks containi ng alcohol do you have on a typical day when you are drinking? Patient does not drink Q3: How often do you have si x or more drinks on one occasion? Never 11/10/2024 PHQ-2 Answer Date Recorded PHQ-2 Total Score (If total score is 3 or more points, staff should administer the PHQ-9) 0 11/10/2024 Personal Safety Answer Date Recorded Have you ever been in or are you currently in a harmful physical or emotional relationship or is someone making you feel afraid or unsafe? 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 Gender Identity Not on file Sexual Orientation Not on file Obstetrics History Last Filed Vital Signs Vital Sign Reading Time Taken Comments Blood Pressure 97/67 11/23/2024 8:38 AM CDT Pulse 69 11/23/2024 8:38 AM CDT Temperature 36.3 C (97.3 F) 11/23/2024 8:38 AM CDT Respiratory Rate 18 11/11/2024 11:20 AM CDT Oxygen Saturation 96% 11/23/2024 8:38 AM CDT Inhaled Oxygen Concentration - - Weight 91.6 kg (202 lb) 11/23/2024 8:38 AM CDT Height 152.4 cm (5') 11/23/2024 8:38 AM CDT Body Mass Index 39.45 11/23/2024 8:38 AM CDT Plan of Treatment Health Maintenance Due Date Last Done Comments Cervical Cancer Screening 1990 Hepatitis C Screening 1990 Varicella Vaccines (1 of 2 - 13+ 2-dose series) 02/02/2001 Hepatitis B Screening 02/02/2006 Regular Well Visit/Exam 18-64 02/02/2006 HPV Vaccines (1 - 3-dose SCD M series) 02/02/2015 Covid-19 Vaccine (3 - 2023-2 5 season) 2023 10/13/2020, 09/23/2020 Influenza Vaccine (#1) 2024 Depression Screening 10/22/2025 10/22/2024 DTaP/Tdap/Td Vaccine (3 - Td or Tdap) 06/11/2028 06/11/2018, 02/22/2016 Pneumococcal vaccine <65 Aged Out No longer eligible based on patient's age to complete this topic Procedures Procedure Name Priority Date/Time Associated Diagnosis Comments EGFR Routine 11/11/2024 4:05 AM CDT CBC WITHOUT DIFFERENTIAL Routine 025 4:05 AM CDT PHOSPHORUS Routine 11/11/2024 4:05 AM CDT MAGNESIUM Routine 11/11/2024 4:05 AM CDT BASIC METABOLIC PANEL Routine 11/11/2024 4:05 AM CDT SURGICAL PATHOLOGY Routine 11/10/2024 1:17 PM CDT Morbid obesity (HCC) CO AN ELECTIVE ENDOTRACHEAL AIRWAY Routine 11/10/2024 11:27 AM CDT LAPAROSCOPIC GASTRECTOMY - SLEEVE 11/10/2024 10:25 AM CDT Morbid obesity (HCC) B ABO / RH CONFIRMATION TESTING STAT 11/10/2024 8:49 AM CDT EGFR STAT 11/10/2024 8:48 AM CDT ANTIBODY SCREEN STAT 11/10/2024 8:48 AM CDT ABO/RH STAT 11/10/2024 8:48 AM CDT TYPE AND SCREEN STAT 11/10/2024 8:48 AM CDT BASIC METABOLIC PANEL STAT 11/10/2024 8:48 AM CDT ESOPHAGOGASTRODUODENOSCOPY BIOPSY 09/07/2024 12:18 PM CDT Heartburn [...] Heartburn from Last 3 Months Results * eGFR (11/11/2024 4:05 AM CDT) eGFR >90 >=60 mL/min/1. 73 m2 Comment: Interpretive Data Reference Interval Normal >/= 90 mL/min/1.73m2 Mildly decreased* 60 - 89 mL/min/1.73m2 Mildly to moderately decreased 45 - 59 mL/min/1.73m2 Moderately to severely decreased 30 - 44 mL/min/1.73m2 Severely decreased 15 - 29 mL/min/1.73m2 Kidney Failure < 15 mL/min/1.73m2 *Relative to young adult level Estimated glomerular filtration rate is determined by the 2020 CKD-EPI equation recommended by the National Kidney Foundation (A Unifying Approach to GFR Estimation: Recommendations of the NKF-ASK Task Force on Reassessing the Inclusion of Race in Diagnosing Kidney Disease, JASN 2020). The CKD-EPI equation should not be used for patients with unstable renal function and has not been validated in children and those over 70. Current interpretive data was last reviewed 2021. Blood 11/11/2024 4:05 AM CDT 11/11/2024 5:31 AM CDT us Raul Askew MD LAB BLOOD ORDERA BLES Final Result [facility] ([place] [address] [facility] Department [place] [address] * (ABNORMAL) CBC without differential (11/11/2024 4:05 AM CDT) WBC 5.57 3.80 - 9.90 K/cumm Hgb 10.8(L) 11.9 - 15.5 g/dL [facility] Hct 31.8(L) 35.6 - 45.5 % [facility] Plt 130(L) 150 - 400 K/cumm [facility] ([place]) MPV 11.9 9.1 - 12.3 fL [facility] ([place] RBC 3.57(L) 3.90 - 5.20 M/cumm [facility] MCV 89.1 81.3 - 96.4 fL [facility] MCH 30.3 27.1 - 33.3 pg [facility] MCHC 34.0 32.3 - 35.7 g/dL [facility] RDW CV 12.4 11.1 - 14.9 % [facility] RDW SD 40.9 35.7 - 48.1 fL [facility] NRBC abs 0.00 0.00 - 0.01 K/cumm [facility] Blood 11/11/2024 4:05 AM CDT 11/11/2024 5:31 AM CDT Raul Askew MD LAB BLOOD ORDERA BLES Final Result Performing Organization Address City/[facility]/ZIP Co de Phone Number [facility] ([place]) [address] [facility] [place] [address] * Phosphorus (11/11/2024 4:05 AM CDT) Phosphorus, pl 3.3 2.3 - 4.5 mg/dL [facility]) Blood 11/11/2024 4:05 AM CDT 11/11/2024 5:31 AM CDT Raul Askew MD LAB BLOOD ORDERA BLES Final Result [facility] [address] [facility] [place] [address] * Magnesium (11/11/2024 4:05 AM CDT) Magnesium 1.8 1.4 - 2.5 mg/dL [facility]) Blood 11/11/2024 4:05 AM CDT 11/11/2024 5:31 AM CDT us Raul Askew MD LAB BLOOD ORDERA BLES Final Result Performing Organization Address City/[facility]/ZIP Co de Phone Number [facility] ([place]) [address] [facility] [place] [address] * (ABNORMAL) Basic metabolic panel (11/11/2024 4:05 AM CDT) Sodium 140 135 - 145 mmol/L [facility] ([place]) Potassium, pl 3.8 3.3 - 4.9 mmol/L [facility]) Chloride 106 97 - 110 mmol/L [facility]) CO2 21(L) 22 - 32 mmol/L [facility]) Anion gap 13 2 - 15 mmol/L [facility] ([place]) BUN 7 6 - 25 mg/dL [facility]) Creatinine 0.44(L) 0.60 - 1.10 mg/dL [facility]) Glucose 86 70 - 199 mg/dL [facility]) Comment: Interpretive Data Fasting glucose >/= 126 mg/dl is diagnostic for diabetes. Fasting is defined as no caloric intake for at least 8 hours. Fasting glucose between 100 mg/dl to 125 mg/dl is diagnostic of prediabetes. In a patient with classic symptoms of hyperglycemia or hyperglycemic crisis, a random glucose >/= 200 mg/dl is diagnostic for diabetes. In the absence of unequivocal hyperglycemia, results should be confirmed by repeat testing. The classification and Diagnosis of Diabetes Diabetes Care 2021; 46: S19-S40. Current interpretive data was last revised 2022. Calcium 9.4 8.5 - 10.3 mg/dL [facility]) Blood 11/11/2024 4:05 AM CDT 11/11/2024 5:31 AM CDT Raul Askew MD LAB BLOOD ORDERA BLES Final Result Performing Organization Address City/[facility]/ZIP Co de Phone Number [facility] ([place]) [address] [facility] [place] [address] * Surgical pathology (11/10/2024 1:17 PM CDT) Tissue (Stomach - Subtotal / Total Resection, non-Tumor) 11/10/2024 11:12 AM CDT Comment:Placed in formalin a t time of drop off Narrative PATHOLOGY [facility] ([place]) - 11/12/2024 12:55 PM CDT EPIC results best viewed via link to PDF [facility] Department of Pathology [address] [place] [id number] Note to Patients: This report may contain [...] Final Report Patient Name: MANISHA JIMÉNEZ Address: [address] [place] [address] Gender: F : 1990 (Age: 34) Service: Surgery Location: [facility] Hospital #: [id number] Patient Type: [facility] Taken: 11/10/2024 Received: 11/10/2024 Accessioned: 11/10/2024 Reported: 11/12/2024 Physician(s):Raul Askew MD Diagnosis: A. Stomach, laparoscopic sleeve gastrectomy- Unremarkable gastric mucosa Chani Jules M.D. Report Electronically Reviewed and Signed Out By Chani Jules M.D. 11/12/2024 12:55:25 Specimen(s) Received: A: Stomach Microscopic Description: Microscopic examination corroborates the diagnosis. Clinical History: Morbid obesity. Laparoscopic gastrectomy - sleeve. Gross Description: The specimen is submitted in a single container labeled with MANISHA JIMÉNEZ and stomach. It is a portion of stomach that measures 18 x 4 x 3. The serosa is smooth, the muscular wall is intact and the mucosal folds are mildly congested but otherwise unremarkable. There are no mass lesions. Represented in two cassettes. Thang Underwood R.N., P.A./Chani Jules M.D. REPORT IMAGES AND SCANNED DOCUMENTS, IF INCLUDED, ONLY VIEWABLE IN PDF VERSION OF REPORT The performance characteristics of some immunohistochemical stains, fluorescence in-situ hybridization tests and immunophenotyping by flow cytometry cited in this report (if any) were determined by the Surgical Pathology Department at [facility] as part of an ongoing quality reviewer program and in compliance with federally mandated [...] characteristics determined by the Surgical Pathology Department [facility]. It has not been cleared or approved by the U. S. Food and Drug Administration. Note for decalcified specimens: This assay has not been validated on decalcified tissues. Results should be interpreted with caution given the possibility of false negativity on decalcified specimens Raul Askew MD LAB PATHOLOGY OR DERABLES Final Result Performing Organization Address City/State/[facility] Co de Phone Number PATHOLOGY [facility] ([facility] [address] [place] [phone] * CO AN ELECTIVE ENDOTRACHEAL AIRWAY (11/10/2024 11:27 AM CDT) Emily Carey CRNA - 11/10/2024 11:27 AM CDT Emily Foley CRNA 11/10/2024 11:28 AM Airway Patient location: OR Urgency: elective Date/time: 11/10/2024 10:50 AM Indications for airway management: anesthesia and airway protection Difficult airway: no Emergent airway documentation: Risks and benefits discussed: yes Consent obtained: yes Consent given by: patient Airway prep: Preoxygenated: yes Patient position: sniffing Mask difficulty assessment: 1 - vent by mask Sedation level during airway: GA Final airway details: Final airway type: endotracheal airway Tube type: ETT ETT size: 7.5 mm Cuffed: yes Technique used for successful ETT placement: direct laryngoscopy Devices/Methods used in placement: intubating stylet Insertion site: oral Blade type: Reji Blade size: 3 Cormack-Lehane (direct): grade I - full view of glottis Cuff inflated with: air ETT to lips: 20 cm Placement verified by: auscultation Airway secured with: silk tape Number of attempts: 1 Ventilation between attempts: none Planned trial extubation: yes us Amarjit Borges MD ANESTHESIA ORDERABLES Fi nal Result * ABO / Rh Confirmation Testing (11/10/2024 8:49 AM CDT) ABO/Rh Confirmation O Positive [facility] Blood 11/10/2024 8:49 AM CDT 11/10/2024 9:34 AM CDT Raul Askew MD LAB BLOOD ORDERA BLES Final Result [facility] ([place] [address] [facility] Department of Laboratories [place] [phone] [facility] * eGFR (11/10/2024 8:48 AM CDT) eGFR >90 >=60 mL/min/1. 73 m2 Comment: Interpretive Data Reference Interval Normal >/= 90 mL/min/1.73m2 Mildly decreased* 60 - 89 mL/min/1.73m2 Mildly to moderately decreased 45 - 59 mL/min/1.73m2 Moderately to severely decreased 30 - 44 mL/min/1.73m2 Severely decreased 15 - 29 mL/min/1.73m2 Kidney Failure < 15 mL/min/1.73m2 *Relative to young adult level Estimated glomerular filtration rate is determined by the 2020 CKD-EPI equation recommended by the National Kidney Foundation (A Unifying Approach to GFR Estimation: Recommendations of the NKF-ASK Task Force on Reassessing the Inclusion of Race in Diagnosing Kidney Disease, JASN 2020). The CKD-EPI equation should not be used for patients with unstable renal function and has not been validated in children and those over 70. Current interpretive data was last reviewed 2021. Blood 11/10/2024 8:48 AM CDT 11/10/2024 8:53 AM CDT Raul Askew MD LAB BLOOD ORDERA BLES Final Result [facility] ([place]) 1 [facility] [employer] [place] [address] * ABO/Rh (11/10/2024 8:48 AM CDT) ABO/Rh O Positive Blood 11/10/2024 8:48 AM CDT 11/10/2024 8:53 AM CDT Narrative [facility] ([place] - 11/10/2024 9:33 AM CDT Has the patient had Daratumumab or Isatuximab in the past 6 months?->Unknown Raul Askew MD LAB BLOOD BANK T EST ORDERABLES Final Result Performing Organization Address [facility]/ZIP Co de Phone Number [facility] ([place] 1 [facility] [place] [address] * Antibody screen (11/10/2024 8:48 AM CDT) Antonio, indirect, Gel Interpretation Negative [facility] Blood 11/10/2024 8:48 AM CDT 11/10/2024 8:53 AM CDT Narrative [facility] ([place] - 11/10/2024 9:33 AM CDT Has the patient had Daratumumab or Isatuximab in the past 6 months?->Unknown Raul Askew MD LAB BLOOD BANK T EST ORDERABLES Final Result [facility] ([place] 1 [facility] [place] [address] * (ABNORMAL) Basic metabolic panel (11/10/2024 8:48 AM CDT) Sodium 138 135 - 145 mmol/L [facility] ([place]) Potassium, pl 3.3 3.3 - 4.9 mmol/L [facility] ([place]) Chloride 105 97 - 110 mmol/L [facility] ([place]) CO2 23 22 - 32 mmol/L [facility]) Anion gap 10 2 - 15 mmol/L [facility] ([place]) BUN 15 6 - 25 mg/dL [facility] ([place]) Creatinine 0.52(L) 0.60 - 1.10 mg/dL [facility] ([place]) Glucose 91 70 - 199 mg/dL [facility] ([place]) Comment: Interpretive Data Fasting glucose >/= 126 mg/dl is diagnostic for diabetes. Fasting is defined as no caloric intake for at least 8 hours. Fasting glucose between 100 mg/dl to 125 mg/dl is diagnostic of prediabetes. In a patient with classic symptoms of hyperglycemia or hyperglycemic crisis, a random glucose >/= 200 mg/dl is diagnostic for diabetes. In the absence of unequivocal hyperglycemia, results should be confirmed by repeat testing. The classification and Diagnosis of Diabetes Diabetes Care 2021; 46: S19-S40. Current interpretive data was last revised 2022. Calcium 10.0 8.5 - 10.3 mg/dL [facility] ([place]) Blood 11/10/2024 8:48 AM CDT 11/10/2024 8:53 AM CDT us Raul Askew MD LAB BLOOD ORDERA BLES Final Result [facility] ([place]) [address] [facility] Department of Laboratories [place], [place] [phone] * EGD (09/07/2024 11:57 AM CDT) Anatomical Region Laterality Modality Other Narrative Procedure Note Raul Askew MD - 09/07/2024 11:57 AM CDT [facility] Patient Name: Manisha Jiménez Procedure Date: 09/07/2024 11:57 AM Date of : 1990 Admit Type: Outpatient Age: 34 Gender: Female Attending MD: Raul Askew M.D. Room: [facility] ENDOSCOPY ROOM 2 Note Status: Finalized Patient [...] passed under direct vision. The Endoscope [id number] was introduced through the mouth, and advanced [...] 11:57 AM Procedure Code(s): --- Professional --- 74411, Esophagogastroduodenoscopy, flexible, transoral; with biopsy, single or multiple --- Technical --- 09265, Esophagogastroduodenoscopy, flexible, transoral; with biopsy, single or multiple Diagnosis Code(s): --- Professional --- K31.89, Other diseases of stomach and duodenum K22.89, Other specified disease of esophagus --- Technical --- K31.89, Other diseases of stomach and duodenum K22.89, Other specified disease of esophagus CPT copyright 2020 [employer]. All rights reserved. The codes documented in this report are preliminary and upon purchasing associate reviewmay be revised to meet current compliance requirements. Recognized by the [employer] [employer] for promoting quality in endoscopy Raul Askew MD ENDOSCOPY PROCED URES Final Result * Thyroid Function [place] (09/07/2024 10:11 AM CDT) TSH 0.35 0.30 - 4.20 mcIUnit/mL Blood 09/07/2024 10:1 1 AM CDT 09/07/2024 1:10 PM CDT Raul Askew MD LAB BLOOD ORDERA BLES Final Result [facility] ([place]) [address] [place] [address] [place] [address] * Iron profile w/ IBC (09/07/2024 10:11 AM CDT) Iron 79 35 - 145 mcg/dL TIBC 312 250 - 400 mcg/dL [facility]) Transferrin saturation 25 20 - 50 % [facility] ([place]) Blood 09/07/2024 10:1 1 AM CDT 09/07/2024 1:10 PM CDT Raul Askew MD LAB BLOOD ORDERA BLES Final Result Performing Organization Address City/[facility]/ZIP Co de Phone Number [facility] ([place]) [address] [place] [address] [employer] [place] [address] * Vitamin A (09/07/2024 10:11 AM CDT) Vitamin A 35.8 32.5 - 78.0 mcg/dL [facility] Comment: ADDITIONAL INFORMATION This test was developed and its performance characteristics determined by [facility] in a manner consistent with CLIA requirements. This test has not been cleared or approved by the U.S. Food and Drug Administration. Test Performed by: [facility] [place] [address] Warp Worker: Bharathi Luna Ph.D.; CLIA# [id number] Blood 09/07/2024 10:1 1 AM CDT 09/07/2024 1:10 PM CDT Raul Askew MD LAB BLOOD ORDERA BLES Final Result MICHELLE MCDUFFIE ([place]) 1 [facility] [employer] [place] [address] Gonzalez ref Lab * (ABNORMAL) Vitamin D 25 hydroxy (09/07/2024 10:11 AM CDT) Vitamin D 25-OH 14(L) 30 - 80 ng/mL Blood 09/07/2024 10:1 1 AM CDT 09/07/2024 1:10 PM CDT Raul Askew MD LAB BLOOD ORDERA BLES Final Result Performing Organization Address City/[facility] Co de Phone Number MICHELLE MCDUFFIE (MARION) 1 [facility] [place] [address] * Vitamin B1 (09/07/2024 10:11 AM CDT) Thiamine (Vit B1) 100 70 - 180 nmol/L Gonzalez ref Lab Comment: ADDITIONAL INFORMATION This test was developed and its performance characteristics determined by [facility] in a manner consistent with CLIA requirements. This test has not been cleared or approved by the U.S. Food and Drug Administration. Test Performed by: [facility] [address] [address] Warp Worker: Bharathi Luna Ph.D.; CLIA# [id number] Blood 09/07/2024 10:1 1 AM CDT 09/07/2024 1:00 PM CDT Raul Askew MD LAB BLOOD ORDERA BLES Final Result MICHELLE ENCARNACIONN) 1 [facility] [place] [address] Gonzalez ref Lab * Hemoglobin A1c (09/07/2024 10:11 AM CDT) Hgb A1C 4.4 4.0 - 5.6 % Estimated Average Glucose 80 mg/dL ALLYSSANADINE MCDUFFIE (MARION) Comment: The ADA recommends reporting an estimated Average Glucose (eAG) with all Hemoglobin A1c results using the equation derived from a study of 507 normal and diabetic adults. Minority populations were underrepresented and children were not included. (Diabetes Care 31:7012-1834, 2008). The eAG is not equivalent to a fasting glucose. Blood 09/07/2024 10:1 1 AM CDT 09/07/2024 1:10 PM CDT us Raul Askew MD LAB BLOOD ORDERA BLES Final Result Performing Organization Address City/[facility] Co de Phone Number MICHELLE MCDUFFIE (MARION) 1 [place] [address] * Glucose, fasting (09/07/2024 10:11 AM CDT) Glucose, fasting 78 70 - 99 mg/dL Blood 09/07/2024 10:1 1 AM CDT 09/07/2024 1:10 PM CDT Raul Askew MD LAB BLOOD ORDERA BLES Final Result MICHELLE MCDUFFIE ([place]) 1 [facility] [place] [address] * Folate (09/07/2024 10:11 AM CDT) [facility] Folic acid 10.3 >=5.0 ng/mL Comment:Slightly Hemolyzed S pecimen. Results may be affected. Blood 09/07/2024 10:1 1 AM CDT 09/07/2024 1:10 PM CDT Raul Askew MD LAB BLOOD ORDERA BLES Final Result MICHELLE MCDUFFIE (MARION) 1 [facility] [place] [address] * Ferritin (09/07/2024 10:11 AM CDT) [facility] Ferritin 90 15 - 150 ng/mL Blood 09/07/2024 10:1 1 AM CDT 09/07/2024 1:10 PM CDT Raul Askew MD LAB BLOOD ORDERA BLES Final Result MICHELLE MCDUFFIE ([place]) 1 [facility] [place] [address] * Vitamin B12 (09/07/2024 10:11 AM CDT) [facility] Vitamin B12 534 230 - 1,250 pg/mL Blood 09/07/2024 10:1 1 AM CDT 09/07/2024 1:10 PM CDT Raul Askew MD LAB BLOOD ORDERA BLES Final Result MICHELLE MCDUFFIE (MAR[place]) 1 [facility] [place] [address] * Lipid panel (09/07/2024 10:11 AM CDT) [facility] Cholesterol 137 30 - 199 mg/dL Comment: [...] on 2017. Triglycerides 73 <=149 mg/dL MICHELLE CHAN) Comment: Interpretive Data Ages [...] on 2017. HDL 43 >=40 mg/dL MICHELLE CHAN) Comment: Interpretive Data Ages [...] 2017. LDL, calculated 79 <=129 mg/dL MICHELLE CHAN) Comment: Interpretive Data Ages < or = 19 years Acceptable: <110 mg/dL Borderline high: 110-129 mg/dL High: >or= 130 mg/dL Ages > or = 20 years Optimal: <100 mg/dL Near optimal: 100-129 mg/dL Borderline high: 130-159 mg/dL High: >160 mg/dL Calculated using the Lou LDL-C estimating equation. This equation was implemented [...] ORDERA BLES Final Result MICHELLE MCDUFFIE ([place]) [address] [place] [address] Department [place] [address] * Surgical pathology (09/07/2024 10:01 AM CDT) Tissue (Gastric/Stomach biopsy) 09/07/2024 12:35 PM CDT Tissue specimen (specimen) ([place], Biopsy) 09/07/2024 12:36 PM CDT Narrative PATHOLOGY RETA ([place]) - 09/10/2024 10:20 AM CDT EPIC results best viewed via link to PDF [facility] Department of Pathology [address] [place] [address] Note to Patients: This report may contain [...] Final Report Patient Name: MANISHA JIMÉNEZ Address: [address] [place] [address] Gender: F : 1990 (Age: 34) Service: Surgery Location: [facility] Hospital #: [id number] Patient Type: [facility] Taken: 09/07/2024 [...] mm fragment. All in B. T.A. Maddy Underwood.Storm/Chani Jules M.D. REPORT IMAGES AND SCANNED DOCUMENTS, IF INCLUDED, ONLY VIEWABLE IN PDF VERSION OF REPORT The performance characteristics of some immunohistochemical stains, fluorescence in-situ hybridization tests and immunophenotyping by flow cytometry cited in this report (if any) were determined by the Surgical Pathology Department at [facility] as part of an ongoing quality reviewer program and in compliance with federally mandated [...] characteristics determined by the Surgical Pathology Department [facility]. It has not been cleared or approved by the U. S. Food and Drug Administration. Note for decalcified specimens: This assay has not been validated on decalcified tissues. Results should be interpreted with caution given the possibility of false negativity on decalcified specimens Raul Askew MD LAB PATHOLOGY OR DERABLES Final Result Performing Organization Address City/State/[facility] Co de Phone Number PATHOLOGY [facility] ([facility] [address] [place] [address] from Last 3 Months Insurance IDPA [employer] [facility] Advance Directives For more information, please contact: [phone] * Full Code (Latest Code Status on File) Date Activated Date Inactivated Comments 11/10/2024 2:01 PM 11/11/2024 7:54 PM * Full Code Date Activated Date Inactivated Comments 09/07/2024 11:15 AM 09/07/2024 5:15 PM * Full Code Date Activated Date Inactivated Comments 09/07/2024 11:15 AM 09/07/2024 11:15 AM Care Teams Foreign Language Interpreter Relationship Specialty Start Date End Date Michel Neff MD [address] [facility] [address] PCP - General Internal Medicine 10/09/23
--- OUTSIDE RECORDS SUMMARY | 2024-11-26 14:23 | XMS_ITS | Patient Health Record ---
Author Organization [facility] Address [address] [place] [address] Care Team Providers Care Bevel Operator Name Role Phone Michel Neff Primary Care Provider Freddie Gomes Unavailable [phone] [facility] Unav ailable Unavailable Jacy Wen Unavailable [phone] Allergies No Known Allergies Results Component Value Reference Range Notes Test, Urine Reviewed date:03/19/2024 03:41:54 PM Interpretation: Performing Lab: Notes/Report: Test, Urine neg Negative - Negative Reason For Referral Reason prefers [facility] Diagnosis 1 Morbid (severe) obes ity due to excess calories (E66.01) Referral Organization [facility] Referring Provider First Name Michel Referring Provider Last Name Aishwarya Referring Provider Speciality Internal edicine Referred Provider Specialty Bariatric Gandhi rgery General Notes Latesha Vega 02/13 02:28:31 PM > Referral sent to Dr. Askew-Bariatric Surgeon in [place]. Letter sent to patient. Clinical Notes Bariatric Surgeon, Coral Askew, [address] [place] [address], [address], [facility], [address], ph: [phone], fax: [phone] Referral Priority Routine Reason INGROWN TOENAIL, PRE FERS CAHOKIA Diagnosis 1 Ingrown right greate r toenail (L60.0) Referral Organization [facility] hospital Referring Provider First Name Michel Referring Provider Last Name Aishwarya Referring Provider Speciality Internal M edicine Referred Provider Specialty Podiatry General Notes Monet Beckwith 0 07/13/2024 02:21:06 PM > referral sent to Podiatry. Letter sent Clinical Notes [facility] - Podiatry, Iglesia Tadeo DPM, [address] [place] [address], , Referral Priority Urgent Medications Medication SIG (Take, Route, Frequency, Duration) Notes Start Date End Date Status HYDROcodone-Acetaminophen 5-325 MG 1 tablet as needed Orally every 8 hours; Duration: 4 days 11/18/2024 Active Topiramate 100 MG 1 tablet Orally Once a day; Duration: 30 days BEGIN AFTER COMPLETING 25 MG TABS 06/11/2024 Active Acetaminophen Extra Strength 500 MG 2 tablets Orally every 6 hrs; Duration: 15 days As needed pain (maximum of 6 tablets in 24 hours) Active Lidocaine 5 % 1 patch remove after 12 hours Externally Once a day; Duration: 30 days As needed upper back pain 04/26/2024 Active Meloxicam 15 MG 1 tablet Orally Once a day; Duration: 30 days Active Omeprazole 40 MG 1 capsule 1/2 to 1 h our before morning meal Orally Once a day; Duration: 30 days 03/19/2024 Active Invega Sustenna 117 MG/0.75ML as directed Intramuscular every 4 weeks; Duration: 28 days Active Minoxidil 2 % 1 mL Externally Twice a day; Duration: 30 days TO SCALP 09/15/2024 Active PARoxetine HCl 40 MG 1.5 tablet in the morning Orally Once a day; Duration: 30 days Active hydrOXYzine HCl 25 MG 1 tablet as needed Orally twice a day; Duration: 30 days 10/24/2023 Active traZODone HCl 50 MG 1 tablet at bedtime as needed Orally at night; Duration: 30 days Active Ketoconazole 2 % 1 application TO LIZY H ON TRUNK Externally at night Active busPIRone HCl 10 MG 1 tablet Orally Twic e a day; Duration: 30 days 11/16/2024 Active Vitamin D (Ergocalciferol) 1.25 MG (75377 UT) TAKE 1 CAPSULE BY MOUTH EVERY WEEK; Duration: 28 Active Prochlorperazine Maleate 10 MG 1 tablet as needed Orally EVERY 6 HOURS; Duration: 5 days 03/25/2024 Active Baclofen 10 MG 1 tablet at bedtime Orally daily; Duration: 30 days As needed back pain 04/26/2024 Active Estradiol 0.1 MG/GM 0.5 applicator Vaginal three times weekly; Duration: 30 days for vaginal dryness 03/19/2024 Active Social History Tobacco Use: Social History [...] Problem Status W/U Status Risk Notes Problem Morbid obesity (disorder) (427091835) Morbid (severe) obesity due to excess calories (E66.01) Active confirmed Problem Secondary amenorrhea (131118312) Secondary amenorrhea (N91.1) Active confirmed Problem Vitamin D deficiency (82166791) Vitamin D insufficiency (E55.9) Active confirmed Problem Anxiety (11994241) Anxiety (F41.9) Active confirmed Problem Schizophrenia (09650687) Schizophrenia (F20.9) Active confirmed Problem Menstrual disorder (631575969) Irregular menses (N92.6) Active confirmed Problem Overweight (765818791) Over weight (E66.3) Active confirmed Problem Depressive disorder (disorder) (82318632) Depression, unspecified depression type (F32.9) 03/24/20 20 Active confirmed Problem Tension headache (265978265) Tension headache (G44.209) Active confirmed Problem Obese class I (finding) (314152152349733) Obesity (BMI 30.0-34.9) (E66.9) Active confirmed Problem Schizophrenia (72184798) Schizophrenia, unspecified type (F20.9) Active confirmed Problem Migraine (99970101) Migraine without status migrainosus, not intractable, unspecified migraine type (G43.909) Active confirmed Problem Tobacco use (204220236) Tobacco use disorder (F17.200) Active confirmed Problem Pain in female genitalia on intercourse (02749343) Dyspareunia in female (N94.10) Active confirmed Problem Obesity (568685585) Obesity, unspecified classification, unspecified obesity type, unspecified whether serious comorbidity present (E66.9) Active confirmed Problem Disorder of left patellofemoral joint (130630382407079) Patellofemoral syndrome, left (M22.2X2) Active confirmed Problem Constipation by delayed colonic transit (08997115) Constipation by delayed colonic transit (K59.01) Active confirmed Problem Body mass index 40+ - severely obese (285591178) Body mass index [BMI] 40.0-44.9, adult (Z68.41) Active confirmed Vital Signs Heart Rate 109 /min 11/18/2024 Temperature 97.8 degrees Fahrenheit 08/17/2024 Shou lder pain Respiratory Rate 16 /min 11/18/2024 Oximetry 98 % 11/18/2024 Blood pressure diastolic 70 mm Hg 11/18/2024 Height 61 in 11/18/2024 Blood pressure systolic 122 mm Hg 11/18/2024 Weight 202.2 lbs 11/18/2024 BMI 38.2 kg/m2 11/18/2024 Encounters Encounter Location Date Provider Diagnosis [place] [address] [place] [address] 12/31/2023 Michel Neff [address] [address] 01/22/2024 Jacy Wen [address] [address] 04/20/2024 Arif Habib [address] [place] [address] 07/08/2024 Michel Neff [address] [address] 08/05/2024 Michel Neff Morbid (severe) obesity due to excess calories E66.[address] [place] [address] 08/17/2024 Arif Habib Schizophrenia F20.[address] [address] 12/09/2023 Arif Habib Schizophrenia F20.[address] [place] [address] 02/17/2024 Arif Habib Schizophrenia F20.9 and Nutritional counseling Z71.[address] [address] 03/16/2024 Arif Habib Nutritional counseling Z71.3 and Schizophrenia F20.[address] [address] 09/14/2024 Arif Habib Nutritional counseling Z71.3 and Schizophrenia F20.[address] [address] 04/20/2024 Arif Habib Nutritional counseling Z71.3 and Schizophrenia F20.[address] [address] 06/15/2024 Arif Habib Nutritional counseling Z71.3 and Schizophrenia F20.[address] [address] 11/16/2024 Arif Habib Over weight E66.3 ; Nutritional counseling Z71.3 and Schizophrenia F20.[address] [address] 08/16/2024 Arif Habib [address] [address] 09/15/2024 Michel Neff Over weight E66.3 ; Hair loss L65.9 ; Dorsalgia of multiple sites in spine M54.9 ; Migraine without status migrainosus, not intractable, unspecified migraine type G43.909 and Patellofemoral syndrome, left M22.2X2 [address] [address] 07/08/2024 Michel Neff Ingrown right greate r toenail L60.0 ; Cellulitis L03.90 ; Morbid (severe) obesity due to excess calories E66.01 and Nutritional counseling Z71.[address] [address] 07/19/2024 Michel Neff Over weight E66.3 ; Patellofemoral syndrome, left M22.2X2 and Schizophrenia F20.[address] [place] [address] 04/26/2024 Michel Neff Dorsalgia of multipl e sites in spine M54.9 and Nutritional counseling Z71.3 [facility] [place] [address] 06/11/2024 Michel Neff Migraine without status migrainosus, not intractable, unspecified migraine type G43.909 ; Obesity, unspecified classification, unspecified obesity type, unspecified whether serious comorbidity present E66.9 and Dyspareunia in female N94.[address] [place] [address] 11/18/2024 Michel Neff Migraine without status migrainosus, not intractable, unspecified migraine type G43.909 ; Epigastric pain R10.13 ; Obesity (BMI 30.0-34.9) E66.9 and Over weight E66.3 [facility] [address] [place] [address] 03/19/2024 Michel Neff Epigastric pain R10.13 ; Dyspareunia in female N94.10 ; Irregular menses N92.6 ; Tension headache G44.209 ; Nutritional counseling Z71.3 and Morbid (severe) obesity due to excess calories E66.[address] [place] [address] 03/25/2024 Michel Neff Tension headache G44.209 and Epigastric pain R10.[address] [place] [address] 03/08/2024 Michel Neff Nutritional counseling Z71.3 and Morbid (severe) obesity due to excess calories E66.[address] [place] [address] 12/22/2023 Michel Neff Morbid (severe) obesity due to excess calories E66.01 ; Migraine without status migrainosus, not intractable, unspecified migraine type G43.909 ; Patellofemoral arthralgia of right knee M25.561 and Tinea corporis B35.[address] [place] [address] 02/10/2024 Michel Neff Patellofemoral arthralgia of right knee M25.561 ; Tension headache G44.209 ; Tinea corporis B35.4 and Morbid (severe) obesity due to excess calories E66.01 Assessments Encounter Date Diagnosis (ICD Code) Assessment Notes Treatment Notes Treatment Clinical Notes Section Notes 02/10/2024 Patellofemoral arthralgia of right knee (ICD-10 [...] L65.9) 02/10/2024 Tension headache (ICD-10 - G44.209) 11/16/2024 Over weight (ICD-10 - E66.3) 11/18/2024 Epigastric pain (ICD-10 - R10.13) 11/18/2024 Migraine without status migrainosus, not intractable, unspecified migraine type (ICD-10 - G43.909) 02/17/2024 Schizophrenia (ICD-10 - F20.9) Continue current treatment. Side effects discussed. Supportive treatment provided 12/09/2023 Schizophrenia (ICD-10 - F20.9) 03/08/2024 Morbid (severe) obesity due to excess calories (ICD-10 - E66.01) 03/08/2024 Nutritional counseling (ICD-10 - Z71.3) 03/16/2024 Nutritional counseling (ICD-10 - Z71.3) 12/22/2023 Morbid (severe) obesity due to excess calories (ICD-10 - E66.01) 12/22/2023 Migraine without status migrainosus, not intractable, unspecified migraine type (ICD-10 - G43.909) 12/22/2023 Patellofemoral arthralgia of right knee (ICD-10 - M25.561) 02/10/2024 Tinea corporis (ICD-10 - B35.4) 03/16/2024 Schizophrenia (ICD-10 - F20.9) Continue current treatment. Side effects discussed. Supportive treatment provided 02/17/2024 Nutritional counseling (ICD-10 - Z71.3) 11/18/2024 Obesity (BMI 30.0-34.9) (ICD-10 - E66.9) 11/16/2024 Nutritional counseling (ICD-10 - Z71.3) 09/15/2024 Dorsalgia [...] Z71.3) 03/19/2024 Tension headache (ICD-10 - G44.209) 11/16/2024 Schizophrenia (ICD-10 - F20.9) Continue current treatment. Side effects discussed. Supportive treatment provided. Add Buspar 10 mg BID for anxiety. 09/15/2024 Migraine without status migrainosus, not intractable, unspecified migraine type (ICD-10 - G43.909) 12/22/2023 Tinea corporis (ICD-10 - B35.4) 02/10/2024 Morbid (severe) obesity due to excess calories (ICD-10 - E66.01) 09/15/2024 Patellofemoral syndrome, left (ICD-10 - M22.2X2) 11/18/2024 Over weight (ICD-10 - E66.3) 03/19/2024 Nutritional counseling (ICD-10 - Z71.3) 03/19/2024 Morbid (severe) obesity due to excess calories (ICD-10 - E66.01) 07/08/2024 Other Learning About the Safe Use of Antibiotics material was discussed. Pt was educated on use of antibiotic medication including dosing, side effects, adverse effects and anticipated response. Pt was also educated on importance of completing full course of treatment as ordered. Patient voiced understanding of all. 12/09/2023 Other side effects discussed. Increase Paxil 40 mg daily for anxiety & depression. Supportive treatment provided Plan Of Treatment Future Test Test Name Order Date Ultrasound : Right Upper Quadrant 2023 Insurance Providers Payer Name Payer Address Payer Phone Subscriber Number Group Number Insured Name Patient Relationship to Insured Coverage Start Date Coverage End Date [facility] Claims Department [address] [place] [address] [id number] Manisha Lundy Self - patient is the insured 5 5 [facility] [address] [place] [address] [id number] Manisha Lundy Self - patient is the insured 4 5 MEDICAID [address] [place] [address] [id number] Manisha Lundy Self - patient is the insured 4 5 [facility] [address] [place] [address] [id number] Manisha Lundy Self - patient is the insured 5 5 [facility] Claims Department [address] [place] [address] [id number] Manisha uLndy Self - patient is the insured 2 4 [facility] Claims Department [address] [place] [address] [id number] Manisha Lundy Self - patient is the insured 5 5 [facility] [address] [place] [address] [id number] Manisha Lundy Self - patient is the insured 5 5 Medications Administered Medication Instructions Date of Administration Dosage Notes [facility] 05/23/2020 156 mg Manufact by [employer]. Pt brett wel. [facility] 06/20/2020 156 mg dictaphone typist-[facility] Pt tolerated injection well. Pt voiced no questions or concerns [facility] 07/20/2020 156 mg Pt brett we ll. [facility] 09/01/2020 156 mg Pt brett we ll. [facility] 09/26/2020 156 mg Pt brett we ll. [facility] 10/25/2020 156 mg Patient t olerated well. Invega Sustenna 12/05/2020 156 mg Pt brett we ll. [facility] 01/11/2021 156 mg Pt brett we ll. [facility] Sustenna 02/06/2021 156 mg Patient t olerated well. Invega Sustenna 04/03/2021 156 mg patient t olerated well, denies any questions or concerns at this time [facility] 05/25/2021 156 mg Pt brett we ll. [facility] Sustenna 08/07/2021 156 mg Pt brett we ll. [facility] 09/06/2021 156 mg Pt brett we ll. [facility] Sustenna 10/09/2021 156 [facility]. [facility] mg Pt brett we ll. [facility] Sustenna 05/10/2022 156 mg Patient t olerated well. [facility] 08/23/2022 156 mg [facility] 10/04[facility] 156 mg Renay Huynh 10/04/2022 12:00:49 PM > Patient tolerated injection to the Right gluteus well, no distress was observed. [facility] 12/31/2022 156 mg Pt brett we ll. [facility] Sustenna 01/29/2023 156 mg Pt brett we ll. [facility] 03/11/2023 156 mg Pt brett we ll. Manufact by [employer] [facility] 04/08/2023 156 mg Pt brett we ll. Manufact by [employer]. [facility] Sustenna 05/07/2023 156 mg Pt brett we ll. [facility] 07/01/2023 156 mg Manufact by [employer] Pt brett well. [facility] 07/30[facility]2023 117 mg Pt brett we ll. Manufact by [employer] Invega Sustenna 08/26/2023 117 mg Manufact by [employer] Pt brett well. Invega Sustenna 10/21/2023 117 mg Manufact by [employer] Pt brett well. Invega Sustenna 12/09/2023 117 mg Pt brett we ll. [facility] [employer] [facility] 02/17/2024 117 mg Manufact by [employer] Pt brett well. Invega Sustenna 03/16/2024 117 mg Pt brett we ll. Invega Sustenna 04/20/2024 117 mg Pt brett we ll. Invega Sustenna 06/15/2024 117 mg Manufact by [employer] Pt brett well. Invega Sustenna 07/19/2024 117 mg Pt brett we ll. Invega Sustenna 08/17/2024 117 mg Pt brett we ll. Invega Sustenna 09/14/2024 117 mg Pt brett we ll. Manufact by [employer] Medical (General) History Surgical History Surgery Date(Month/Year) 2019 tubal ligation 2019 Hospitalization History Reason Date(Month/Year) Urgent care for toothache Nov 2023 2019
--- OUTSIDE RECORDS SUMMARY | 2024-11-26 14:23 | XMS_ITS | Clinical Summary ---
Author Organization [facility] Address [facility] [place] [address] Care Team Providers Care Internal Consultant Name Role Phone Unavailable Primary Care Provider Unavailabl e Social History Tobacco Use Types Packs/Day Years Used Date Smoking Tobacco: Never Assessed Comments Unknown Sex and Gender Information Value Date Recorded Sex Assigned at Not on file Legal Sex Female 7:45 PM CDT Gender Identity Not on file Sexual Orientation Not on file Plan of Treatment Health Maintenance Due Date Last Done Comments Cervical Cancer Screening Pa p Smear (Age 30 to 64) Every 3 Years 1988 Annual Physical 02/02/1991 Hepatitis C 02/02/2006 DTaP, Tdap and Td Vaccines ( 1 - Tdap) 02/02/2007 Hepatitis B Vaccines (1 of 3 - 19+ 3-dose series) 02/02/2007 HPV Vaccines (1 - 3-dose SCD M series) 02/02/2015 Cervical Cancer Screening Pa p with HPV Testing (Age 30 to 64) Every 5 Years 02/02/2018 Cervical Cancer Screening with HPV 02/02/2018 COVID-19 Vaccine ( - 2023-2 5 season) 2023 Meningococcal B Vaccine Aged Out No l onger eligible based on patient's age to complete this topic Meningococcal Vaccine Aged Out No ras theresa eligible based on patient's age to complete this topic Pneumococcal Vaccine: Pediat rics (0 to 5 Years) and At-Risk Patients (6 to 49 Years) Aged Out No longer eligible b ased on patient's age to complete this topic RSV Immunizations Under 20 Months Aged Out No longer eligible based on patient's age to complete this topic
[2024-11-26 14:26] VITALS: BP 127/77; PULSE 88; RESP 16; TEMP 36.7; O2SAT 98
--- NOTE | 2024-11-26 15:25 | ED_ITS ---
HPI - General Adult General Chief complaint: Extremity Injury, Lower Stated complaint: BLE pain and no injury Time Seen by Provider: 11/26/24 15:15 History of Present Illness HPI narrative: This is a 34-year-old female with history of migraines, bipolar disorder, depression who presents the ED for bilateral lower extremity pain and bilateral shoulder pain. 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 She states for the past 3 days, she has been having bilateral cramping sensations to her shoulders and legs. Denies any traumas. Denies any changes in medications. She states she has been of the heat. Has been eating and drinking well. Does note that 2 weeks ago she had a gastric sleeve placed with no complications. She did call her performing surgeon's office then reported this did not have anything to do with her surgery. She has not tried any medications for this. She has had difficulty walking due to the pain. Related Data Home Medications ?Medication ?Instructions ?Recorded ?Confirmed ?Last Taken ?Type paroxetine HCl 40 mg tablet 40 mg PO DAILY PRN anxiety 09/26/24 10/12/24 Unknown History topiramate 100 mg tablet 100 mg PO DAILY 09/26/24 11/26/24 11/26/24 History trazodone 50 mg tablet 50 mg PO HS PRN insomnia 09/26/24 11/26/24 11/25/24 History Allergies Allergy/AdvReac Type Severity Reaction Status Date / Time No Known Allergies Allergy Verified 10/11/24 09:17 Review of Systems 2 Review of Systems: Gen.: Denies fevers or chills Eyes: Denies eye pain or visual change ENT: Denies congestion Respiratory: Denies shortness of breath or cough CV: Denies chest pain or palpitations GI: Denies abdominal pain nausea, emesis or diarrhea denies burning, urgency, frequency or hematuria Musculoskeletal: Bilateral calf and bilateral shoulder pain Neuro: Denies numbness, tingling, weakness or focal weakness Skin: Denies rash Except as documented, all other systems reviewed and negative [facility]LY [facility] Past Medical History Medical History Head lice Schizophrenia Bipolar affective disorder Surgical History Surgical History Hx laparoscopic cholecystectomy 09/28/[address] Rodriguez History of History of tubal ligation Family History Family History Father Diabetes mellitus Mother Cancer of stomach Other Patient's mother is Social History Social History Smoking status: Never smoker Alcohol intake: never Substance use: never Substance use type: does not use Do You Feel Safe in your Home?: Yes Lack of Transportation: No Lack of Food: Never True Current Housing: I Have Housing Concerned About Future Housing: No Difficulty Paying Gas/Electric Bills: No Difficulty Paying for Meds: No Currently Unemployed: No Education: High School Diploma/GED Difficulty w/ Childcare or Family Care: No Living arrangements: with family Gender identity (if verbalized by the patient): Female Sexual Orientation (if Verbalized by the Patient): Straight or Heterosexual Spiritual care concerns: No Exam 2 Narrative: APPEARANCE: No acute distress, nontoxic, resting in bed EYES: EOMI HEENT: Normocephalic, atraumatic, OMM RESPIRATORY: No respiratory distress Clear to auscultation bilaterally with no rhonchi wheezing or rales. CARDIOVASCULAR: Regular rate and rhythm without murmurs rubs or gallops. ABDOMINAL: Soft, nontender, nondistended, no rebound or guarding MUSCULOSKELETAl: TTP over the bilateral trapezii, ttp to the bilateral posterior legs, no swelling or warmth NEURO: Awake and alert. Following commands, speech normal, no focal deficits SKIN:: Warm, dry. No rashes lesions or abrasions PSYCHIATRIC: Normal affect/mood, Course Vital Signs Vital signs: Vital Signs Temperature 98.0 F 11/26/24 14:26 Pulse Rate 88 11/26/24 14:26 Respiratory Rate 16 11/26/24 14:26 Blood Pressure 127/77 11/26/24 14:26 Pulse Oximetry 98 11/26/24 14:26 Oxygen Delivery Room Air 11/26/24 14:26 Temperature 97.5 F L 11/26/24 17:42 Pulse Rate 65 11/26/24 17:42 Respiratory Rate 16 11/26/24 17:42 Blood Pressure 107/63 11/26/24 17:42 Pulse Oximetry 99 11/26/24 17:42 Oxygen Delivery Room Air 11/26/24 14:26 Medical Decision Making MDM Narrative Medical decision making narrative: 34-year-old female presenting to the ED for muscle pains to legs and shoulders. No clinical evidence of a DVT. History is most consistent with muscle spasms versus muscle strain. Patient was given Toradol for this. Cbc and CMP are without significant abnormalities. She did have mild improvement of her pain. She will be given a prescription for Flexeril and advised to continue taking her meloxicam. Also advised to take Tylenol. Patient was agreeable to plan. Given strict return precautions. Differential Diagnosis Differential Diagnosis: Muscle strain, muscle spasm, electrolyte abnormality Vital Signs Vital Signs: Vital Signs Temperature 98.0 F 11/26/24 14:26 Pulse Rate 88 11/26/24 14:26 Respiratory Rate 16 11/26/24 14:26 Blood Pressure 127/77 11/26/24 14:26 Pulse Oximetry 98 11/26/24 14:26 Oxygen Delivery Room Air 11/26/24 14:26 Temperature 97.5 F L 11/26/24 17:42 Pulse Rate 65 11/26/24 17:42 Respiratory Rate 16 11/26/24 17:42 Blood Pressure 107/63 11/26/24 17:42 Pulse Oximetry 99 11/26/24 17:42 Oxygen Delivery Room Air 11/26/24 14:26 Lab Data Lab results reviewed: Yes I reviewed the patient's lab results. 11/26/24 15:34 11/26/24 15:34 Labs: Lab Results 11/26/24 11/26/24 Range/Units 15:34 17:41 WBC 4.7 (4.5-10.0) K/mm3 RBC 4.02 L (4.2-5.4) M/mm3 Hgb 12.2 D (12.0-15.0) g/dL Hct 35.7 L (37.0-47.0) % MCV 88.8 (80-100) fl MCH 30.3 (26-34) pg MCHC 34.2 (32-36) g/dl RDW 12.5 (11.5-14.5) % Plt Count 113 L (150-375) k/mm3 MPV 11.8 H (7.4-10.4) fl Immature Gran % (Auto) 0.2 (0-0.5) % Neut % (Auto) 74.9 H (45.5-73.1) % Lymph % (Auto) 17.0 L (18.3-44.2) % [place] % (Auto) 6.0 (2.6-8.5) % Eos % (Auto) 1.7 (0-4.4) % Baso % (Auto) 0.2 (0.2-1.2) % Lymph # (Auto) 0.80 L (0.9-3.2) K/mm3 [place] # (Auto) 0.3 (0.1-0.6) K/mm3 Eos # (Auto) 0.1 (0-0.3) K/mm3 Baso # (Auto) 0.0 (0.0-0.1) K/mm3 Abs Immat Gran (auto) 0.01 (0.00-0.031) K/mm3 Absolute Neuts (auto) 3.5 (1.3-6.7) K/mm3 Absolute Nucleated RBC 0.000 (0.0-0.012) K/mm3 Nucleated RBC % 0.0 (0.0-0.2) % % Immature Plt Fraction 6.1 (0.9-11.2) % Sodium 140 (137-145) mmol/L Potassium 3.4 (3.4-5.0) mmol/L Chloride 107 (98-107) mmol/L Carbon Dioxide 26 (22-30) mmol/L Anion Gap 7 (4-12) mmol/L BUN 13 D (7-17) mg/dL Creatinine 0.46 L (0.7-1.0) mg/dL Estim Creat Clear Calc 141 ml/min Estimated GFR > 60 (59 - ) Glucose 95 (65-110) mg/dL Calcium 9.3 (8.4-10.2) mg/dL POC Urine HCG, Qual Negative (Negative) Discharge Plan Discharge Clinical Impression: Muscle spasm Patient Disposition: Home Condition: Stable Instructions: Antibiotic Form Additional Instructions: Take Tylenol and meloxicam. You may also try Flexeril, take this as prescribed. Follow-up with your PCP in the next week for re-evaluation. Return to the ED for any new or worsening symptoms. Patient Language: Nepali Prescriptions: New cyclobenzaprine 10 mg tablet 10 mg PO HS PRN (Reason: muscle spasm) Qty: 30 0RF No Action meloxicam 15 mg tablet 15 mg PO DAILY Qty: 15 0RF trazodone 50 mg tablet 50 mg PO HS PRN (Reason: insomnia) paroxetine HCl 40 mg tablet 40 mg PO DAILY PRN (Reason: anxiety) topiramate 100 mg tablet 100 mg PO DAILY acetaminophen [Acetaminophen Extra Strength] 500 mg tablet 1,000 mg PO .q8 PRN (Reason: fever or pain) Qty: 60 0RF ibuprofen 800 mg tablet 800 mg PO TID PRN (Reason: pain (scale score 4-6)) Qty: 60 0RF oxycodone-acetaminophen [Percocet] 5-325 mg tablet 1 tablet PO Q6H PRN (Reason: pain) Qty: 12 0RF Follow-up/Referrals: Michel Neff MD [Primary Care Provider] -
[2024-11-26] MEDS: SODIUM CHLORIDE 0.9% IV 1,000 ML 999 ML IV CONT (15:38)
[2024-11-26] MEDS: KETOROLAC 30 MG/ML VIAL (*BKC) IV PUSH (15:39)
[2024-11-26 15:44] LABS: Hematocrit 35.7 % (37.0-47.0); Hemoglobin 12.2 g/dL (12.0-15.0); Immature Granulocyte Percent A 0.2 % (0-0.5); Immature Platelet Fraction Pct 6.1 % (0.9-11.2); Lymphocytes Absolute Auto 0.80 K/mm3 (0.9-3.2); Mean Corpuscular HGB Conc 34.2 g/dl (32-36); Mean Corpuscular Hemoglobin 30.3 pg (26-34); Mean Corpuscular Volume 88.8 fl (80-100); Nucleated Red Blood Cells Absolute Auto 0.000 K/mm3 (0.0-0.012); Nucleated Red Blood Cells Perc 0.0 % (0.0-0.2); Platelet Count Result 113 k/mm3 (150-375); Red Blood Count 4.02 M/mm3 (4.2-5.4); White Blood Count 4.7 K/mm3 (4.5-10.0)
[2024-11-26 15:55] LABS: Anion Gap 7 mmol/L (4-12); Blood Urea Nitrogen 13 mg/dL (7-17); Calcium 9.3 mg/dL (8.4-10.2); Carbon Dioxide 26 mmol/L (22-30); Chloride 107 mmol/L (98-107); Estimated CRCL calculation 141 ml/min; Estimated Glomerular Filt Rate > 60; Glucose 95 mg/dL (65-110); Potassium 3.4 mmol/L (3.4-5.0); Sodium 140 mmol/L (137-145)
--- OUTSIDE RECORDS SUMMARY | 2024-11-26 16:34 | XMS_ITS | Clinical Summary ---
Author Organization [facility] Address [address] [place] [address] Care Team Providers Care Splitter Hand Name Role Phone Michel Neff MD Primary Care Provider [phone] Allergies No known active allergies Medications Invega [...] stay for the surgery. We we will nutrition counselor the patient to avoid for 18 [...] Description 5 9:00 AM CDT Office Visit [facility] [address] [facility] [address] [place] [address] Raul Askew MD Morbid obesity due to excess calories (HCC) (Primary Dx); Status post gastric surgery 5 [facility] Post Discharge Follow up phone call [facility] Surgery [facility] [address] [place] [address] Simona Rivera 5 10:46 AM CDT Anesthesia Event [facility] Operating Room 1 [place] [address] Amarjit Borges MD Kory, Christopher James, MD 5 10:30 AM CDT - 5 12:30 PM CDT Surgery [facility] Operating Room 1 [place] [address] Raul Askew MD LAPAROSCOPIC GASTRECTOMY - SLEEVE with hiatal hernia repair 5 6:33 AM CDT - 5 3:49 PM CDT Hospital Encounter [facility] Surgery [facility] 1 [place] [address] Raul Askew MD Morbid obesity (HCC) Discharge Disposition: Discharge to home or self care 5 8:30 AM CDT Office Visit [address] [place] [address] Raul Askew MD Morbid obesity due to excess calories (HCC) (Primary Dx) 5 11:38 AM CDT - 5 11:59 PM CDT Hospital Encounter [facility] Nutrition and Diabetic Education [address] [facility] [address] [place] [address] Sanchez, Nubia Roberts RD Discharge Disposition: Discharge to home or self care 5 11:20 AM CDT Office Visit [address] [place] [address] Raul Askew MD Morbid obesity due to excess calories (HCC) (Primary Dx) 5 12:25 PM CDT Anesthesia Event [address] [address] Cuauhtemoc Gaona MD 5 12:00 PM CDT - 5 12:30 PM CDT Surgery [address] [address] Raul Askew MD ESOPHAGOGASTRODUODENOSCOPY BIOPSY 5 11:00 AM CDT - 5 1:10 PM CDT Hospital Encounter [address] [address] Raul Askew MD Heartburn Discharge Disposition: Discharge to home or self care 5 10:05 AM CDT Lab [address] Morbid obesity due to excess calories (HCC) 5 9:40 AM CDT Office Visit [address] [place] [address] Raul Askew MD Morbid obesity due to excess calories (HCC) (Primary Dx) from Last 3 Months Surgical History Surgery Date Site/Laterality Comments SECTION TUBAL LIGATION CHOLECYSTECTOMY 09/28/2024 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 Gender Identity Not on file Sexual Orientation [...] 11/10/2024 1:17 PM CDT Morbid obesity (HCC) ND AN ELECTIVE ENDOTRACHEAL AIRWAY Routine 11/10/2024 11:27 [...] MD LAB BLOOD ORDERA BLES Final Result [facility] 1 [facility] [place] [address] * (ABNORMAL) CBC without differential (11/11/2024 4:05 AM CDT) WBC 5.57 3.80 - 9.90 K/cumm Hgb 10.8(L) 11.9 - 15.5 g/dL [facility] Hct 31.8(L) 35.6 - 45.5 % [facility] ([place] Plt 130(L) 150 - 400 K/cumm [facility] ([place]) MPV 11.9 9.1 - 12.3 fL [facility] ([place]) RBC 3.57(L) 3.90 - 5.20 M/cumm [facility] MCV 89.1 81.3 - 96.4 fL [facility] MCH 30.3 27.1 - 33.3 pg [facility] MCHC 34.0 32.3 - 35.7 g/dL [facility] RDW CV 12.4 11.1 - 14.9 % [facility] RDW SD 40.9 35.7 - 48.1 fL [facility] NRBC abs 0.00 0.00 - 0.01 K/cumm [facility] Blood 11/11/2024 4:05 AM CDT 11/11/2024 5:31 AM CDT Raul Askew MD LAB BLOOD ORDERA BLES Final Result Performing Organization Address City/[facility]/ZIP Co de Phone Number [facility] ([place]) 1 [facility] [employer] [place] [address] * Phosphorus (11/11/2024 4:05 AM CDT) Phosphorus, pl 3.3 2.3 - 4.5 mg/dL [facility] ([place]) Blood 11/11/2024 4:05 AM CDT 11/11/2024 5:31 AM CDT Raul Askew MD LAB BLOOD ORDERA BLES Final Result [facility] ([place]) 1 [facility] [employer] [place] [address] * Magnesium (11/11/2024 4:05 AM CDT) Magnesium 1.8 1.4 - 2.5 mg/dL [facility] ([place]) Blood 11/11/2024 4:05 AM CDT 11/11/2024 5:31 AM CDT us Raul Askew MD LAB BLOOD ORDERA BLES Final Result Performing Organization Address City/[facility]/ZIP Co de Phone Number [facility] ([place]) 1 [facility] [employer] [place] [address] * (ABNORMAL) Basic metabolic panel (11/11/2024 4:05 [...] Organization Address City/[facility]/ZIP Co de Phone Number [facility] ([place]) 1 [facility] [place] [address] * Surgical pathology (11/10/2024 1:17 PM CDT) Tissue (Stomach - Subtotal / Total Resection, non-Tumor) 11/10/2024 11:12 AM CDT Comment:Placed in formalin a t time of drop off Narrative PATHOLOGY [facility] - 11/12/2024 12:55 PM CDT EPIC results best viewed via link to PDF [facility] Department of Pathology [address] [place] [address] Note to Patients: This report may contain [...] Final Report Patient Name: MANISHA JIMÉNEZ Address: [address] [place] [address] Gender: F : 1990 (Age: 34) Service: Surgery Location: [facility] Hospital #: [id number] Patient Type: [facility] Taken: 11/10/2024 Received: 11/10/2024 Accessioned: 11/10/2024 Reported: [...] determined by the Surgical Pathology Department at [facility] as part of an ongoing quality audit representative program and in compliance with federally mandated [...] determined by the Surgical Pathology Department [facility]. It has not been cleared or approved by the U. S. Food and Drug Administration. Note for decalcified specimens: This assay has not been validated on decalcified tissues. Results should be interpreted with caution given the possibility of false negativity on decalcified specimens Raul Askew MD LAB PATHOLOGY OR DERABLES Final Result Performing Organization Address City/State/[facility] Co de Phone Number PATHOLOGY [facility] [address] [place] [phone] * ND AN ELECTIVE ENDOTRACHEAL AIRWAY (11/10/2024 11:27 AM [...] BLOOD ORDERA BLES Final Result [facility] ([place]) 1 [facility] Department of Laboratories [place] [id number] [facility] * eGFR (11/10/2024 8:48 AM CDT) [...] BLOOD ORDERA BLES Final Result [facility] ([place]) 1 [facility] [employer] [address] * ABO/Rh (11/10/2024 8:48 AM CDT) ABO/Rh O Positive Blood 11/10/2024 8:48 AM CDT 11/10/2024 8:53 AM CDT Narrative [facility] ([place]) - 11/10/2024 9:33 AM CDT Has the patient had Daratumumab or Isatuximab in the past 6 months?->Unknown Raul Askew MD LAB BLOOD BANK T EST ORDERABLES Final Result Performing Organization Address [facility]/ZIP Co de Phone Number [facility] ([place]) 1 [facility] [place] [address] * Antibody screen (11/10/2024 8:48 AM CDT) Antonio, indirect, Gel Interpretation Negative ABSC Blood 11/10/2024 8:48 AM CDT 11/10/2024 8:53 AM CDT Narrative [facility] ([place]) - 11/10/2024 9:33 AM CDT Has the patient had Daratumumab or Isatuximab in the past 6 months?->Unknown Raul Askew MD LAB BLOOD BANK T EST ORDERABLES Final Result [facility] ([place]) 1 [facility] [place] [address] * (ABNORMAL) Basic metabolic panel (11/10/2024 8:48 AM CDT) Sodium 138 135 - 145 mmol/L [facility] ([place]) Potassium, pl 3.3 3.3 - [...] ([place]) Glucose 91 70 - 199 mg/dL [facility] ([place]) Comment: Interpretive Data Fasting glucose [...] 2022. Calcium 10.0 8.5 - 10.3 mg/dL [facility] ([place]) Blood 11/10/2024 8:48 AM CDT 11/10/2024 8:53 AM CDT us Raul Askew MD LAB BLOOD ORDERA BLES Final Result [facility] 1 [facility] Department of Laboratories [place], [place] [id number] * EGD (09/07/2024 11:57 AM CDT) Anatomical Region Laterality Modality Other Narrative Procedure Note Raul Askew MD - 09/07/2024 11:57 AM CDT [facility] Patient Name: Manisha Jiménez Procedure Date: 09/07/2024 11:57 AM Date of : 1990 Admit Type: Outpatient Age: 34 Gender: Female Attending MD: Raul Askew M.D. Room: [facility] ENDOSCOPY ROOM 2 Note Status: Finalized [...] passed under direct vision. The Endoscope [id number] was introduced through the mouth, and advanced [...] 11:57 AM Procedure Code(s): --- Professional --- 05453, Esophagogastroduodenoscopy, flexible, transoral; with biopsy, single or multiple --- Technical --- 68265, Esophagogastroduodenoscopy, flexible, transoral; with biopsy, single or multiple Diagnosis Code(s): --- Professional --- K31.89, Other diseases of stomach and duodenum K22.89, Other specified disease of esophagus --- Technical --- K31.89, Other diseases of stomach and duodenum K22.89, Other specified disease of esophagus CPT copyright 2020 [employer]. All rights reserved. The codes documented in this report are preliminary and upon stock preparation operator reviewmay be revised to meet current compliance requirements. Recognized by the [employer] for promoting quality in endoscopy Raul Askew MD ENDOSCOPY PROCED URES Final Result * Thyroid Function [place] (09/07/2024 10:11 AM CDT) TSH 0.35 0.30 - 4.20 mcIUnit/mL Blood 09/07/2024 10:1 1 AM CDT 09/07/2024 1:10 PM CDT Raul Askew MD LAB BLOOD ORDERA BLES Final Result [facility] ([place]) [address] [place] [address] [place] [address] * Iron profile w/ IBC (09/07/2024 10:11 AM CDT) Iron 79 35 - 145 mcg/dL TIBC 312 250 - 400 mcg/dL [facility] Transferrin saturation 25 20 - 50 % [facility] ([place]) Blood 09/07/2024 10:1 1 AM CDT 09/07/2024 1:10 PM CDT Raul Askew MD LAB BLOOD ORDERA BLES Final Result Performing Organization Address City/[facility]/ZIP Co de Phone Number [facility] ([place]) [address] [place] [address] [place] [address] * Vitamin A (09/07/2024 10:11 AM CDT) Vitamin A 35.8 32.5 - 78.0 mcg/dL [facility] Lab Comment: ADDITIONAL INFORMATION This test was developed and its performance characteristics determined by [facility] in a manner consistent with CLIA requirements. This test has not been cleared or approved by the U.S. Food and Drug Administration. Test Performed by: [facility] [place] [address] Teacher Adult Education: Bharathi Luna Ph.D.; CLIA# [id number] Blood 09/07/2024 10:1 1 AM CDT 09/07/2024 1:10 PM CDT Raul Askew MD LAB BLOOD ORDERA BLES Final Result [facility] ([place]) 1 [facility] [place] [place] [address] [facility] ref Lab * (ABNORMAL) Vitamin D 25 hydroxy (09/07/2024 10:11 AM CDT) Vitamin D 25-OH 14(L) 30 - 80 ng/mL Blood 09/07/2024 10:1 1 AM CDT 09/07/2024 1:10 PM CDT Raul Askew MD LAB BLOOD ORDERA BLES Final Result Performing Organization Address City/[facility] Co de Phone Number [facility] ([place]) 1 [facility] [place] [address] * Vitamin B1 (09/07/2024 10:11 AM CDT) Thiamine (Vit B1) 100 70 - 180 nmol/L [facility] Lab Comment: ADDITIONAL INFORMATION This test was developed and its performance characteristics determined by [facility] in a manner consistent with CLIA requirements. This test has not been cleared or approved by the U.S. Food and Drug Administration. Test Performed by: [facility] - [address] [address] Teacher Adult Education: Bharathi Luna Ph.D.; CLIA# [id number] Blood 09/07/2024 10:1 1 AM CDT 09/07/2024 1:00 PM CDT Raul Askew MD LAB BLOOD ORDERA BLES Final Result [facility]) 1 [facility] [place] [address] [facility] ref [facility] * Hemoglobin A1c (09/07/2024 10:11 AM CDT) Hgb A1C 4.4 4.0 - 5.6 % Estimated Average Glucose 80 mg/dL [facility] ([place]) Comment: The ADA recommends reporting an estimated Average Glucose (eAG) with all Hemoglobin A1c results using the equation derived from a study of 507 normal and diabetic adults. Minority populations were underrepresented and children were not included. (Diabetes Care 31:0263-0283, 2008). The eAG is not equivalent to a fasting glucose. Blood 09/07/2024 10:1 1 AM CDT 09/07/2024 1:10 PM CDT us Raul Askew MD LAB BLOOD ORDERA BLES Final Result Performing Organization Address City/[facility] Co de Phone Number [facility] ([place]) 1 [place] [address] * Glucose, fasting (09/07/2024 10:11 AM CDT) Glucose, fasting 78 70 - 99 mg/dL Blood 09/07/2024 10:1 1 AM CDT 09/07/2024 1:10 PM CDT Raul Askew MD LAB BLOOD ORDERA BLES Final Result [facility] ([place]) 1 [facility] [place] [address] * Folate (09/07/2024 10:11 AM CDT) [facility] Folic acid 10.3 >=5.0 ng/mL Comment:Slightly Hemolyzed S pecimen. Results may be affected. Blood 09/07/2024 10:1 1 AM CDT 09/07/2024 1:10 PM CDT Raul Askew MD LAB BLOOD ORDERA BLES Final Result [facility] ([place]) 1 [facility] [place] [address] * Ferritin (09/07/2024 10:11 AM CDT) [facility] Ferritin 90 15 - 150 ng/mL Blood 09/07/2024 10:1 1 AM CDT 09/07/2024 1:10 PM CDT Raul Askew MD LAB BLOOD ORDERA BLES Final Result [facility] ([place]) 1 [facility] [place] [address] * Vitamin B12 (09/07/2024 10:11 AM CDT) [facility] Vitamin B12 534 230 - 1,250 pg/mL Blood 09/07/2024 10:1 1 AM CDT 09/07/2024 1:10 PM CDT Raul Askew MD LAB BLOOD ORDERA BLES Final Result [facility] ([place]) 1 [facility] [place] [address] * Lipid panel (09/07/2024 10:11 AM CDT) [facility] Cholesterol 137 30 - 199 mg/dL Comment: [...] ORDERA BLES Final Result [facility] ([place]) [address] [place] [address] Department [place] [address] * Surgical pathology (09/07/2024 10:01 AM CDT) Tissue (Gastric/Stomach biopsy) 09/07/2024 12:35 PM CDT Tissue specimen (specimen) ([place], Biopsy) 09/07/2024 12:36 PM CDT Narrative PATHOLOGY [facility] ([place]) - 09/10/2024 10:20 AM CDT EPIC results best viewed via link to PDF [facility] Department of Pathology [address] [place] [address] Note to Patients: This report may contain [...] Final Report Patient Name: MANISHA JIMÉNEZ Address: [address] [place] [address] Gender: F : 1990 (Age: 34) Service: Surgery Location: [facility] Hospital #: [id number] Patient Type: [facility] Taken: 09/07/2024 Received: 09/08/2024 Accessioned: 09/08/2024 Reported: [...] determined by the Surgical Pathology Department at [facility] as part of an ongoing quality audit representative program and in compliance with federally mandated [...] determined by the Surgical Pathology Department [facility]. It has not been cleared or approved by the U. S. Food and Drug Administration. Note for decalcified specimens: This assay has not been validated on decalcified tissues. Results should be interpreted with caution given the possibility of false negativity on decalcified specimens Raul Askew MD LAB PATHOLOGY OR DERABLES Final Result Performing Organization Address City/State/[facility] Co de Phone Number PATHOLOGY [facility] [address] [place] [address] from Last 3 Months Insurance IDPA AETNA BETTER [facility] Advance Directives For more information, please contact: [phone] * Full Code (Latest Code Status on File) Date Activated Date Inactivated Comments 11/10/2024 2:01 PM 11/11/2024 7:54 PM * Full Code Date Activated Date Inactivated Comments 09/07/2024 11:15 AM 09/07/2024 5:15 PM * Full Code Date Activated Date Inactivated Comments 09/07/2024 11:15 AM 09/07/2024 11:15 AM Care Teams Splitter Hand Relationship Specialty Start Date End Date Michel Neff MD [address] [facility] [address] PCP - General Internal Medicine 10/09/23
--- OUTSIDE RECORDS SUMMARY | 2024-11-26 16:34 | XMS_ITS | Clinical Summary ---
Author Organization [facility] Address [address] [address] Care Team Providers Care Horse Wrangler Name Role Phone Unavailable Primary Care Provider Unavailabl e Source Comments [facility],non-owned Affiliates and Associated Physician Practices is amultiple site organization consisting of ambulatory clinics and hospital sitesin [place], [place], [place] and [place]. This disclosure is being madepursuant to the Care Everywhere program and may not contain all information available regarding this patient. Last updated 18.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
--- OUTSIDE RECORDS SUMMARY | 2024-11-26 16:34 | XMS_ITS | Clinical Summary ---
Author Organization [facility] Address [facility] [place] [address] Care Team Providers Care Shop Technician Name Role Phone Unavailable Primary Care Provider [...]
[2024-11-26 17:42] VITALS: BP 107/63; PULSE 65; RESP 16; TEMP 36.4; O2SAT 99
[2024-11-26 17:43] LABS: BEDSIDEPREGUCG Negative (Negative)
== END 2024-11-26 17:48 | disposition home or self-care (01) ==
PROVIDERS: Emergency Provider Student in an Organized Health Care Education/Training Program; PCP Internal Medicine
DX: M62.838 Other muscle spasm (principal); F20.9 Schizophrenia, unspecified; F31.9 Bipolar disorder, unspecified; Z98.84 Bariatric surgery status; Z90.49 Acquired absence of other specified parts of digestive tract; Z79.1 Long term (current) use of non-steroidal anti-inflammatories (NSAID)
CPT/HCPCS: 36415; 80048; 81025; 85025; 85055; 96361; 96374; 99284; J1885; J7030

== ENCOUNTER 2024-11-29 12:35 | Outpatient (CLI) | payer MEDICAID, SELFPAY ==
--- NOTE | ~2024-11-29 | MR_ITS ---
EXAMINATION: MR lumbar spine wo con DATE: 11/29/2024 13:15 INDICATION: Sciatica associated with this order of the lumbosacral spine TECHNIQUE: Magnetic resonance imaging (MRI) of the lumbar spine was performed without intravenous con trast. Sequences included sagittal T2-weighted FSE, sagittal T2-weighted FS FSE, sagittal T1-weighted FSE, and axial T2-weighted FSE. COMPARISON: None FINDINGS: Alignment is normal. Vertebral body heights are normal. Normal marrow signal. Mild disc height loss at T10-T11. Disc heights from T11-T12 through L5-S1 are normal. The conus medullaris terminates at L1 . There is normal signal in the caudal spinal cord. 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 Paravertebral soft tissues are unremarkable. The SMA noted likely section scar at the anterior lower uterine segment. The following disc lev els are specifically discussed: T12-L1: The disc does not extend beyond the endplate margin. There is mild left facet joint osteoarth ritis. There is no neural foraminal stenosis. There is no central canal stenosis. L1-L2: The disc does not extend beyond the endplate margin. There is mild bilateral facet joint osteo arthritis. There is no neural foraminal stenosis. There is no central canal stenosis. L2-L3: The disc does not extend beyond the endplate margin. There is mild bilateral facet joint osteo arthritis. There is no neural foraminal stenosis. There is no central canal stenosis. L3-L4: Small left-sided and minimal right-sided foraminal zone disc protrusions. There is mild bilate ral facet joint osteoarthritis. There is minimal left neural foraminal stenosis. There is no central canal stenosis. L4-L5: Small left foraminal zone disc protrusion. There is mild bilateral facet joint osteoarthritis. There is mild left neural foraminal stenosis. There is no central canal stenosis. L5-S1: The disc does not extend beyond the endplate margin. There is mild bilateral facet joint osteo arthritis. There is no neural foraminal stenosis. There is no central canal stenosis. IMPRESSION: 1. Minimal lumbar spondylosis with no central canal stenosis. Reviewed, dictated and finalized at location A.
--- OUTSIDE RECORDS SUMMARY | 2024-11-29 13:20 | XMS_ITS | Clinical Summary ---
Author Organization [facility] Address [facility] [place] [address] Care Team Providers Care Mechanic'S Assistant Name Role Phone Michel Neff MD Primary Care Provider [phone] Allergies No known active allergies Medications Invega [...] stay for the surgery. We we will risk reduction counselor the patient to avoid for 18 [...] Date Type Department Care Team Description [address] [place] [address] Raul Askew MD 5 9:00 AM CDT Office Visit [address] [place] [address] Raul Askew MD Morbid obesity due to excess calories (HCC) (Primary Dx); Status post gastric surgery 5 [facility] Post Discharge Follow up phone call [facility] 1 [place] [address] Simona Rivera 5 10:46 AM CDT Anesthesia Event [facility] Operating Room 1 [place] [address] Amarjit Borges MD Kory, Christopher James, MD 5 10:30 AM CDT - 5 12:30 PM CDT Surgery [facility] Operating Room 1 [place] [address] Raul Askew MD LAPAROSCOPIC GASTRECTOMY - SLEEVE with hiatal hernia repair 5 6:33 AM CDT - 5 3:49 PM CDT Hospital Encounter [facility] 1 [place] [address] Raul Askew MD Morbid obesity (HCC) Discharge Disposition: Discharge to home or self care 5 8:30 AM CDT Office Visit [facility] [address] [place] [address] [address] [place] [address] Raul Askew MD Morbid obesity due to excess calories (HCC) (Primary Dx) 5 11:38 AM CDT - 5 11:59 PM CDT Hospital Encounter [facility] Nutrition and Diabetic Education 1 [facility] Room [address] [address] Sanchez, Nubia Roberts RD Discharge Disposition: Discharge to home or self care 5 11:20 AM CDT Office Visit [address] [place] [address] Raul Askew MD Morbid obesity due to excess calories (HCC) (Primary Dx) 5 12:25 PM CDT Anesthesia Event [address] [address] Cuauhtemoc Gaona MD 5 12:00 PM CDT - 5 12:30 PM CDT Surgery [address] [address] Raul Askew MD ESOPHAGOGASTRODUODENOSCOPY BIOPSY 5 11:00 AM CDT - 5 1:10 PM CDT Hospital Encounter [address] [address] Raul Askew MD Heartburn Discharge Disposition: Discharge to home or self care 5 10:05 AM CDT Lab [address] Morbid obesity due to excess calories (HCC) 5 9:40 AM CDT Office Visit [address] [place] [address] Raul Askew MD Morbid obesity due to excess calories (HCC) (Primary Dx) from Last 3 Months Surgical History Surgery Date Site/Laterality Comments SECTION TUBAL LIGATION CHOLECYSTECTOMY 09/28/2024 [facility] SLEEVE GASTROPLASTY 11/04/2024 Medical History Medical History [...] on file 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 Department of Laboratories [place], [place] [id number] * (ABNORMAL) CBC without differential (11/11/2024 4:05 AM CDT) WBC 5.57 3.80 - 9.90 K/cumm Hgb 10.8(L) 11.9 - 15.5 g/dL [facility] ([place] Hct 31.8(L) 35.6 - 45.5 % [facility] ([place] Plt 130(L) 150 - 400 K/cumm [facility] ([place] MPV 11.9 9.1 - 12.3 fL [facility] ([place]) RBC 3.57(L) 3.90 - 5.20 M/cumm [facility] ([place]) MCV 89.1 81.3 - 96.4 fL [facility] ([place]) MCH 30.3 27.1 - 33.3 pg [facility] ([place]) MCHC 34.0 32.3 - 35.7 g/dL [facility] ([place]) RDW CV 12.4 11.1 - 14.9 % [facility] ([place]) RDW SD 40.9 35.7 - 48.1 fL [facility] ([place]) NRBC abs 0.00 0.00 - 0.01 K/cumm [facility] ([place]) Blood 11/11/2024 4:05 AM CDT 11/11/2024 5:31 AM CDT Raul Askew MD LAB BLOOD ORDERA BLES Final Result [facility] ([place]) 1 [facility] [place] [address] * Phosphorus (11/11/2024 4:05 AM CDT) Phosphorus, pl 3.3 2.3 - 4.5 mg/dL [facility] ([place]) Blood 11/11/2024 4:05 AM CDT 11/11/2024 5:31 AM CDT Raul Askew MD LAB BLOOD ORDERA BLES Final Result [facility] ([place]) 1 [facility] [employer] [address] * Magnesium (11/11/2024 4:05 AM CDT) Magnesium 1.8 1.4 - 2.5 mg/dL [facility] ([place]) Blood 11/11/2024 4:05 AM CDT 11/11/2024 5:31 AM CDT Raul Askew MD LAB BLOOD ORDERA BLES Final Result Performing Organization Address [facility] Co de Phone Number [facility] ([place]) 1 [facility] [place] [address] * (ABNORMAL) Basic metabolic panel (11/11/2024 4:05 [...] classification and Diagnosis of Diabetes Diabetes Care 202; 46: S19-S40. Current interpretive data was last revised 2022. Calcium 9.4 8.5 - 10.3 mg/dL [facility] ([place]) Blood 11/11/2024 4:05 AM CDT 11/11/2024 5:31 AM CDT Raul Askew MD LAB BLOOD ORDERA BLES Final Result [facility] ([place] [address] [place] [address] [place] [address] * Surgical pathology (11/10/2024 1:17 PM CDT) Tissue (Stomach - Subtotal / Total Resection, non-Tumor) 11/10/2024 11:12 AM CDT Comment:Placed in formalin a t time of drop off Narrative PATHOLOGY [facility] ([place]) - 11/12/2024 12:55 PM CDT EPIC results best viewed via link to PDF [facility] Department of Pathology [address] [place] [address] Note to Patients: This report may contain [...] Final Report Patient Name: MANISHA JIMÉNEZ Address: [address] [place] [address] Gender: F : 1990 (Age: 34) Service: Surgery Location: [facility] Hospital #: [id number] Patient Type: [facility] Taken: 11/10/2024 Received: 11/10/2024 Accessioned: 11/10/2024 [...] Represented in two cassettes. Thang Underwood R.N., Storm/Chani Jules M.D. REPORT IMAGES AND SCANNED DOCUMENTS, IF INCLUDED, ONLY VIEWABLE IN PDF VERSION OF REPORT The performance characteristics of some immunohistochemical stains, fluorescence in-situ hybridization tests and immunophenotyping by flow cytometry cited in this report (if any) were determined by the Surgical Pathology Department at [facility] as part of an ongoing research quality assurance specialist program and in compliance with federally mandated [...] characteristics determined by the Surgical Pathology Department [facility]. It has not been cleared or approved by the U. S. Food and Drug Administration. Note for decalcified specimens: This assay has not been validated on decalcified tissues. Results should be interpreted with caution given the possibility of false negativity on decalcified specimens Raul Askew MD LAB PATHOLOGY OR DERABLES Final Result [facility]OLOGY [facility] ([facility] 1 [place], [place] [address] * [place] AN ELECTIVE ENDOTRACHEAL AIRWAY (11/10/2024 11:27 AM CDT) Narrative Emily Foley CRNA - 11/10/2024 11:27 AM CDT Emily [...] 8:49 AM CDT 11/10/2024 9:34 AM CDT us Raul Askew MD LAB BLOOD ORDERA BLES Final Result [facility] ([place] 1 [facility] [place] [address] [facility] * eGFR (11/10/2024 8:48 AM CDT) [...] ORDERA BLES Final Result Performing Organization Address [facility] Co de Phone Number [facility] [address] [place] [address] [employer] [address] [place] [address] * ABO/Rh (11/10/2024 8:48 AM CDT) ABO/Rh O Positive Blood 11/10/2024 8:48 AM CDT 11/10/2024 8:53 AM CDT Narrative [facility] ([place] - 11/10/2024 9:33 AM CDT Has the patient had Daratumumab or Isatuximab in the past 6 months?->Unknown Raul Askew MD LAB BLOOD BANK T EST ORDERABLES Final Result Performing Organization Address [facility] Co de Phone Number [facility]) [address] [place] [address] * Antibody screen (11/10/2024 8:48 AM CDT) Antonio, indirect, Gel Interpretation Negative ABSC Blood 11/10/2024 8:48 AM CDT 11/10/2024 8:53 AM CDT N[facility]ative [facility] - 11/10/2024 9:33 AM CDT Has the patient had Daratumumab or Isatuximab in the past 6 months?->Unknown Raul Askew MD LAB BLOOD BANK T EST ORDERABLES Final Result [facility] 1 [facility] [place] [address] * (ABNORMAL) Basic metabolic panel (11/10/2024 8:48 AM CDT) Sodium 138 135 - 145 mmol/L [facility] ([place]) Potassium, pl 3.3 3.3 - 4.9 mmol/L [facility] ([place]) Chloride 105 97 - 110 mmol/L [facility]) CO2 23 22 - 32 mmol/L [facility] ([place]) Anion gap 10 2 - 15 mmol/L [facility] ([place]) BUN 15 6 - 25 mg/dL [facility]) Creatinine 0.52(L) 0.60 - 1.10 mg/dL [facility] ([place]) Glucose 91 70 - 199 mg/dL [facility] ([place]) Comment: Interpretive Data Fasting glucose [...] 2022. Calcium 10.0 8.5 - 10.3 mg/dL [facility] ([place]) Blood 11/10/2024 8:48 AM CDT 11/10/2024 8:53 AM CDT us Raul Askew MD LAB BLOOD ORDERA BLES Final Result [facility] 1 [facility] [place] [address] * EGD (09/07/2024 11:57 AM CDT) Anatomical Region Laterality Modality Other Narrative Procedure Note Raul Askew MD - 09/07/2024 11:[address] [facility] Patient Name: Manisha Jiménez Procedure Date: 09/07/2024 11:57 AM Date of : 1990 Admit Type: Outpatient Age: 34 Gender: Female Attending MD: Raul Askew M.D. Room: [facility] ENDOSCOPY ROOM 2 Note Status: Finalized [...] passed under direct vision. The Endoscope [id number] was introduced through the mouth, and advanced [...] 11:57 AM Procedure Code(s): --- Professional --- 64014, Esophagogastroduodenoscopy, flexible, transoral; with biopsy, single or multiple --- Technical --- 12498, Esophagogastroduodenoscopy, flexible, transoral; with biopsy, single or multiple Diagnosis Code(s): --- Professional --- K31.89, Other diseases of stomach and duodenum K22.89, Other specified disease of esophagus --- Technical --- K31.89, Other diseases of stomach and duodenum K22.89, Other specified disease of esophagus CPT copyright 2020 [employer]. All rights reserved. The codes documented in this report are preliminary and upon red mud thickener operator reviewmay be revised to meet current compliance requirements. Recognized by the [employer] for promoting quality in endoscopy Raul Askew MD ENDOSCOPY PROCED URES Final Result * Thyroid Function [place] (09/07/2024 10:11 AM CDT) TSH 0.35 0.30 - 4.20 mcIUnit/mL Blood 09/07/2024 10:1 1 AM CDT 09/07/2024 1:10 PM CDT Raul Askew MD LAB BLOOD ORDERA BLES Final Result Performing Organization Address [facility]/ZIP Co de Phone Number [facility] [address] [place] [address] [place] [address] * Iron profile w/ IBC (09/07/2024 10:11 AM CDT) Iron 79 35 - 145 mcg/dL TIBC 312 250 - 400 mcg/dL [facility] ([place]) Transferrin saturation 25 20 - 50 % [facility] Blood 09/07/2024 10:1 1 AM CDT 09/07/2024 1:10 PM CDT Raul Askew MD LAB BLOOD ORDERA BLES Final Result Performing Organization Address City/[facility]/ZIP Co de Phone Number [facility] 1 [facility] [place] [address] * Vitamin A (09/07/2024 10:11 AM CDT) Vitamin A 35.8 32.5 - 78.0 mcg/dL [facility] Lab Comment: ADDITIONAL INFORMATION This test was developed and its performance characteristics determined by [facility] in a manner consistent with CLIA requirements. This test has not been cleared or approved by the U.S. Food and Drug Administration. Test Performed by: [facility] - [address] [address] Knitter Machine: Bharathi Luna Ph.D.; CLIA# [id number] Blood 09/07/2024 10:1 1 AM CDT 09/07/2024 1:10 PM CDT Raul Askew MD LAB BLOOD ORDERA BLES Final Result Performing Organization Address [facility]/ZIP Co de Phone Number [facility] 1 [facility] [place] [address] [facility] * (ABNORMAL) Vitamin D 25 hydroxy (09/07/2024 10:11 AM CDT) Vitamin D 25-OH 14(L) 30 - 80 ng/mL Blood 09/07/2024 10:1 1 AM CDT 09/07/2024 1:10 PM CDT Raul Askew MD LAB BLOOD ORDERA BLES Final Result Performing Organization Address [facility]/ZIP Co de Phone Number [facility] [address] [facility] [place] [address] * Vitamin B1 (09/07/2024 10:11 AM CDT) Thiamine (Vit B1) 100 70 - 180 nmol/L [facility] Comment: ADDITIONAL INFORMATION This test was developed and its performance characteristics determined by [facility] in a manner consistent with CLIA requirements. This test has not been cleared or approved by the U.S. Food and Drug Administration. Test Performed by: [facility] - [address], [place] [address] Knitter Machine: Bharathi Luna Ph.D.; CLIA# [id number] Blood 09/07/2024 10:1 1 AM CDT 09/07/2024 1:00 PM CDT Raul Askew MD LAB BLOOD ORDERA BLES Final Result Performing Organization Address [facility] Co de Phone Number [facility] 1 [place] [address] [facility] * Hemoglobin A1c (09/07/2024 [...] and children were not included. (Diabetes Care 31:5130-8736, 2008). The eAG is not equivalent to a fasting glucose. Blood 09/07/2024 10:1 1 AM CDT 09/07/2024 1:10 PM CDT us Raul Askew MD LAB BLOOD ORDERA BLES Final Result Performing Organization Address [facility] Co de Phone Number [facility] 1 [place] [address] * Glucose, fasting (09/07/2024 10:11 AM CDT) Glucose, fasting 78 70 - 99 mg/dL Blood 09/07/2024 10:1 1 AM CDT 09/07/2024 1:10 PM CDT Raul Askew MD LAB BLOOD ORDERA BLES Final Result Performing Organization Address [facility] Co de Phone Number [facility] 1 [facility] [place] [address] * Folate (09/07/2024 10:11 AM CDT) Pathologist [facility] Folic acid 10.3 >=5.0 ng/mL Comment:Slightly Hemolyzed S pecimen. Results may be affected. Blood 09/07/2024 10:1 1 AM CDT 09/07/2024 1:10 PM CDT Raul Askew MD LAB BLOOD ORDERA BLES Final Result [facility] 1 [place] [address] * Ferritin (09/07/2024 10:11 AM CDT) [facility] Ferritin 90 15 - 150 ng/mL Blood 09/07/2024 10:1 1 AM CDT 09/07/2024 1:10 PM CDT Raul Askew MD LAB BLOOD ORDERA BLES Final Result [facility] 1 [facility] [address] [place] [address] * Vitamin B12 (09/07/2024 10:11 AM CDT) [facility] Vitamin B12 534 230 - 1,250 pg/mL Blood 09/07/2024 10:1 1 AM CDT 09/07/2024 1:10 PM CDT Raul Askew MD LAB BLOOD ORDERA BLES Final Result [facility] 1 [facility] [place] [address] * Lipid panel (09/07/2024 10:11 AM CDT) [...] BLOOD ORDERA BLES Final Result [facility] 1 [facility] [place] [address] * Surgical pathology (09/07/2024 10:01 AM CDT) Tissue (Gastric/Stomach biopsy) 09/07/2024 12:35 PM CDT Tissue specimen (specimen) ([place], Biopsy) 09/07/2024 12:36 PM CDT Narrative [facility]Y [facility] ([place]) - 09/10/2024 10:20 AM CDT EPIC results best viewed via link to PDF [facility] Department of Pathology [address] [place] [address] Note to Patients: This report may contain [...] Final Report Patient Name: MANISHA JIMÉNEZ Address: [address] [place] [address] Gender: F : 1990 (Age: 34) Service: Surgery Location: [facility] Hospital #: [id number] Patient Type: [facility] Taken: 09/07/2024 Received: 09/08/2024 Accessioned: 09/08/2024 [...] fragment. All in B. T.A. Maddy Underwood., Storm/Chani Jules M.D. REPORT IMAGES AND SCANNED DOCUMENTS, IF INCLUDED, ONLY VIEWABLE IN PDF VERSION OF REPORT The performance characteristics of some immunohistochemical stains, fluorescence in-situ hybridization tests and immunophenotyping by flow cytometry cited in this report (if any) were determined by the Surgical Pathology Department at [facility] as part of an ongoing research quality assurance specialist program and in compliance with federally mandated [...] characteristics determined by the Surgical Pathology Department [facility]. It has not been cleared or approved by the U. S. Food and Drug Administration. Note for decalcified specimens: This assay has not been validated on decalcified tissues. Results should be interpreted with caution given the possibility of false negativity on decalcified specimens Raul Askew MD LAB PATHOLOGY OR DERABLES Final Result [facility] ([place]) 1 [place] [address] from Last 3 Months Insurance IDPA AETNA [facility] Advance Directives For more information, please contact: [phone] * Full Code (Latest Code Status on File) Date Activated Date Inactivated Comments 11/10/2024 2:01 PM 11/11/2024 7:54 PM * Full Code Date Activated Date Inactivated Comments 09/07/2024 11:15 AM 09/07/2024 5:15 PM * Full Code Date Activated Date Inactivated Comments 09/07/2024 11:15 AM 09/07/2024 11:15 AM Care Teams Mechanic'S Assistant Relationship Specialty Start Date End Date Michel Neff MD [address] [facility] [place] [address] PCP - General Internal Medicine 10/09/23
--- OUTSIDE RECORDS SUMMARY | 2024-11-29 13:20 | XMS_ITS | Encounter Summary ---
Author Organization [facility] Healthcare Address [address] [place] [address] Care Team Providers Care Sheriff'S Sergeant Name Role Phone Michel Neff MD Primary Care Provider [phone] Encounter Details Date Type Department Care Team (Late st Contact Info) Description 11/29/2024 Telephone [facility] 4 [facility] [address] [place] [address] Raul Askew MD [address] [place] [address] [address] [place] [address] Social History Tobacco Use Types Packs/Day Years Used Date Smoking Tobacco: Never Passive Smoke Exposure: Never Smokeless Tobacco: Never AUDIT-C Answer Date Recorded Q1: How often [...] on file 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 She stated she went to the ER and they didn't find anything. Advised to reach out to her PCP, she said she did and they did not call her back. Advised most likely not related to surgery but she is concerned about returning to work because she can barely stand or walk due to the pain. documented in this encounter Plan of Treatment Not on file documented as of this encounter Visit Diagnoses Not on filedocumented in this encounter Care Teams Sheriff'S Sergeant Relationship Specialty Start Date End Date Michel Neff MD [address] [facility] [place] [address] PCP - General Internal Medicine 10/09/23 documented as of this encounter
--- OUTSIDE RECORDS SUMMARY | 2024-11-29 13:20 | XMS_ITS | Clinical Summary ---
Author Organization [facility] Address [address] [address] Care Team Providers Care Handkerchief Sample Clerk Name Role Phone Unavailable Primary Care Provider Unavailabl e Source Comments [facility],non-owned Affiliates and Associated Physician Practices is amultiple site organization consisting of ambulatory clinics and hospital sitesin [place], [place], [place] and [place]. This disclosure is being madepursuant to the Care Everywhere program and may not contain all information available regarding this patient. 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
--- OUTSIDE RECORDS SUMMARY | 2024-11-29 13:20 | XMS_ITS | Patient Health Record ---
Author Organization Formerly [facility] Address [address] [place] [address] Care Team Providers Care Real Estate Agent Name Role Phone Michel Neff Primary Care Provider Freddie Gomes Unavailable [phone] [facility] Unav ailable Unavailable Jacy Wen Unavailable [phone] Allergies No Known Allergies Results Component Value Reference Range Notes Test, Urine Reviewed date:03/19/2024 03:41:54 PM Interpretation: Performing Lab: Notes/Report: Test, Urine neg Negative - Negative Reason For Referral Reason prefers [facility] Diagnosis 1 Morbid (severe) obes ity due to excess calories (E66.01) Referral Organization [facility] Referring Provider First Name Michel Referring Provider Last Name Aishwarya Referring Provider Speciality Internal edicine Referred Provider Specialty Bariatric Gandhi rgery General Notes Latesha Vega 02/13 02:28:31 PM > Referral sent to Dr. Askew-Bariatric Surgeon in [place]. Letter sent to patient. Clinical Notes Bariatric Surgeon, Coral Askew, [address] [place] [address], [address], [facility], [address], ph: [phone], fax: [phone] Referral Priority Routine Reason INGROWN TOENAIL, PRE FERS CAHOKIA Diagnosis 1 Ingrown right greate r toenail (L60.0) Referral Organization [facility] Referring Provider First Name Michel Referring Provider Last Name Aishwarya Referring Provider Speciality Internal M edicine Referred Provider Specialty Podiatry General Notes Monet Beckwith 0 07/13/2024 02:21:06 PM > referral sent to Podiatry. Letter sent Clinical Notes [facility] - Podiatry, Iglesia Tadeo DPM, [address] [place] [address], , Referral Priority Urgent Medications Medication SIG (Take, Route, Frequency, Duration) Notes Start Date End Date Status Invega Sustenna 117 MG/0.75ML as directed Intramuscular every 4 weeks; Duration: 28 days Active Meloxicam 15 MG 1 tablet Orally Once a day; Duration: 30 days Active Acetaminophen Extra Strength 500 MG 2 tablets Orally every 6 hrs; Duration: 15 days As needed pain (maximum of 6 tablets in 24 hours) Active Estradiol 0.1 MG/GM 0.5 applicator Vaginal three times weekly; Duration: 30 days for vaginal dryness 03/19/2024 Active Topiramate 100 MG 1 tablet Orally Once a day; Duration: 30 days BEGIN AFTER COMPLETING 25 MG TABS 06/11/2024 Active busPIRone HCl 10 MG 1 tablet Orally Twic e a day; Duration: 30 days 11/16/2024 Active traZODone HCl 50 MG 1 tablet at bedtime as needed Orally at night; Duration: 30 days Active PARoxetine HCl 40 MG 1.5 tablet in the morning Orally Once a day; Duration: 30 days Active hydrOXYzine HCl 25 MG 1 tablet as needed Orally twice a day; Duration: 30 days 10/24/2023 Active Minoxidil 2 % 1 mL Externally Twice a day; Duration: 30 days TO SCALP 09/15/2024 Active Lidocaine 5 % 1 patch remove after 12 hours Externally Once a day; Duration: 30 days As needed upper back pain 04/26/2024 Active Baclofen 10 MG 1 tablet at bedtime Orally daily; Duration: 30 days As needed back pain 04/26/2024 Active Prochlorperazine Maleate 10 MG 1 tablet as needed Orally EVERY 6 HOURS; Duration: 5 days 03/25/2024 Active HYDROcodone-Acetaminophen 5-325 MG 1 tablet as needed Orally every 8 hours; Duration: 4 days 11/18/2024 Active Vitamin D (Ergocalciferol) 1.25 MG (98654 UT) TAKE 1 CAPSULE BY MOUTH EVERY WEEK; Duration: 28 Active Omeprazole 40 MG 1 capsule 1/2 to 1 h our before morning meal Orally Once a day; Duration: 30 days 03/19/2024 Active Ketoconazole 2 % 1 application TO LIZY H ON TRUNK Externally at night Active Social History Tobacco Use: Social History [...] Status Risk Notes Problem Morbid obesity (disorder) (446626400) Morbid (severe) obesity due to excess calories (E66.01) Active confirmed Problem Secondary amenorrhea (123951826) Secondary amenorrhea (N91.1) Active confirmed Problem Vitamin D deficiency (20621078) Vitamin D insufficiency (E55.9) Active confirmed Problem Anxiety (85242387) Anxiety (F41.9) Active confirmed Problem Schizophrenia (49954664) Schizophrenia (F20.9) Active confirmed Problem Menstrual disorder (618270789) Irregular menses (N92.6) Active confirmed Problem Overweight (525550455) Over weight (E66.3) Active confirmed Problem Depressive disorder (disorder) (04902815) Depression, unspecified depression type (F32.9) 03/24/20 20 Active confirmed Problem Tension headache (387388482) Tension headache (G44.209) Active confirmed Problem Obese class I (finding) (166804815127535) Obesity (BMI 30.0-34.9) (E66.9) Active confirmed Problem Schizophrenia (18097095) Schizophrenia, unspecified type (F20.9) Active confirmed Problem Migraine (54726125) Migraine without status migrainosus, not intractable, unspecified migraine type (G43.909) Active confirmed Problem Tobacco use (868732969) Tobacco use disorder (F17.200) Active confirmed Problem Pain in female genitalia on intercourse (99802965) Dyspareunia in female (N94.10) Active confirmed Problem Obesity (036793294) Obesity, unspecified classification, unspecified obesity type, unspecified whether serious comorbidity present (E66.9) Active confirmed Problem Disorder of left patellofemoral joint (561298330667258) Patellofemoral syndrome, left (M22.2X2) Active confirmed Problem Constipation by delayed colonic transit (82263504) Constipation by delayed colonic transit (K59.01) Active confirmed Problem Disorder of sacrum (07791140) 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) Active confirmed Problem Body mass index 40+ - severely obese (739627403) Body mass index [BMI] 40.0-44.9, adult (Z68.41) Active confirmed Vital Signs Heart Rate 64 /min 11/29/2024 Temperature 98.1 degrees Fahrenheit 11/29/2024 Respiratory Rate 18 /min 11/29/2024 Oximetry 99 % 11/29/2024 Blood pressure diastolic 58 mm Hg 11/29/2024 Height 60 in 11/29/2024 Blood pressure systolic 108 mm Hg 11/29/2024 Weight 204.2 lbs 11/29/2024 BMI 39.88 kg/m2 11/29/2024 Encounters Encounter Location Date Provider Diagnosis [facility] [address] [place] [address] 11/29/2024 Michel Neff Sciatica associated with disorder of lumbosacral spine M53.[address] [place] [address] 12/09/2023 Arif Habib Schizophrenia F20.[address] [place] [address] 12/22/2023 Michel Neff Morbid (severe) obesity due to excess calories E66.01 ; Migraine without status migrainosus, not intractable, unspecified migraine type G43.909 ; Patellofemoral arthralgia of right knee M25.561 and Tinea corporis B35.[address] [place] [address] 02/10/2024 Michel Neff Patellofemoral arthralgia of right knee M25.561 ; Tension headache G44.209 ; Tinea corporis B35.4 and Morbid (severe) obesity due to excess calories E66.[address] [address] 02/17/2024 Arif Habib Schizophrenia F20.9 and Nutritional counseling Z71.[address] [address] 03/08/2024 Michel Neff Nutritional counseling Z71.3 and Morbid (severe) obesity due to excess calories E66.[address] [address] 03/16/2024 Arif Habib Nutritional counseling Z71.3 and Schizophrenia F20.9 [address] [place] [address] 03/19/2024 Michel Neff Epigastric pain R10.13 ; Dyspareunia in female N94.10 ; Irregular menses N92.6 ; Tension headache G44.209 ; Nutritional counseling Z71.3 and Morbid (severe) obesity due to excess calories E66.[address] [address] 03/25/2024 Michel Neff Tension headache G44.209 and Epigastric pain R10.[address] [address] 04/20/2024 Arif Habib Nutritional counseling Z71.3 and Schizophrenia F20.[address] [address] 04/26/2024 Michel Neff Dorsalgia of multipl e sites in spine M54.9 and Nutritional counseling Z71.3 [facility] [address] [place] [address] 06/11/2024 Michel Neff Migraine without status migrainosus, not intractable, unspecified migraine type G43.909 ; Obesity, unspecified classification, unspecified obesity type, unspecified whether serious comorbidity present E66.9 and Dyspareunia in female N94.[address] [address] 06/15/2024 Arif Habib Nutritional counseling Z71.3 and Schizophrenia F20.[address] [address] 07/08/2024 Michel Neff Ingrown right greate r toenail L60.0 ; Cellulitis L03.90 ; Morbid (severe) obesity due to excess calories E66.01 and Nutritional counseling Z71.[address] [address] 07/19/2024 Michel Neff Over weight E66.3 ; Patellofemoral syndrome, left M22.2X2 and Schizophrenia F20.[address] [address] 08/16/2024 Arif Habib [address] [address] 08/17/2024 Arif Habib Schizophrenia F20.[address] [address] 09/14/2024 Arif Habib Nutritional counseling Z71.3 and Schizophrenia F20.[address] [address] 09/15/2024 Michel Neff Over weight E66.3 ; Hair loss L65.9 ; Dorsalgia of multiple sites in spine M54.9 ; Migraine without status migrainosus, not intractable, unspecified migraine type G43.909 and Patellofemoral syndrome, left M22.2X2 [address] [address] 11/16/2024 Arif Habib Over weight E66.3 ; Nutritional counseling Z71.3 and Schizophrenia F20.[address] [address] 11/18/2024 Michel Neff Migraine without status migrainosus, not intractable, unspecified migraine type G43.909 ; Epigastric pain R10.13 ; Obesity (BMI 30.0-34.9) E66.9 and Over weight E66.3 [facility] [address] [place] [address] 12/31/2023 Michel Neff [facility] [address] [place] [address] 01/22/2024 Jacy Lisusannahjazz [address] [place] [address] 04/20/2024 Freddie Gomes [address] [place] [address] 07/08/2024 Michelsherri Linkner [address] [address] 08/05/2024 Michlesherri Neff Morbid (severe) obesity due to excess [...] intractable, unspecified migraine type (ICD-10 - G43.909) 11/29/2024 Sciatica associated with disorder of lumbosacral spine (ICD-10 - M53.87) CALLED [facility] AND THEY WILL PERFORM A STAT MRI OF THE LS SPINE LATER THIS AM. 02/17/2024 Schizophrenia (ICD-10 - F20.9) Continue current [...] Treatment Future Test Test Name Order Date MRI : Lumbar without contrast 11/29/2024 Insurance Providers Payer Name Payer Address Payer Phone Subscriber Number Group Number Insured Name Patient Relationship to Insured Coverage Start Date Coverage End Date [facility] Attn Claims Department [address] [place] [address] [phone] [id number] Manisha Lundy Self - patient is the insured 5 5 [facility] [address] [place] [address] [id number] Manisha Lundy Self - patient is the insured 4 5 MED[employer] [address] [place] [address] [id number] Manisha Lundy Self - patient is the insured 4 5 [facility] [address] [place] [address] [id number] Manisha Lundy Self - patient is the insured 5 5 MEDICAID [address] [place] [address] [id number] Manisha Lundy Self - patient is the insured 5 [facility] Attn Claims Department [address] [place] [address] [phone] [id number] Manisha Lundy Self - patient is the insured 2 4 [facility] Attn Claims Department [address] [place] [address] [phone] [id number] Manisha Lundy Self - patient is the insured 5 5 [facility] [address] [place] [address] [id number] Manisha Lundy Self - patient is the insured 5 5 Medications Administered Medication Instructions Date of Administration Dosage Notes Invega Sustenna 05/23/2020 156 mg Manufact by [employer]. Pt brett wel. Invega Sustenna 06/20/2020 156 mg technology engineer-[employer] Pt tolerated injection well. Pt voiced no [...] mg Pt brett we ll. Manufact by [employer] Invega Sustenna 04/08/2023 156 mg Pt brett we ll. Manufact by [employer]. Invega Sustenna 05/07/2023 156 mg Pt brett we ll. Invega Sustenna 07/01/2023 156 mg Manufact by [employer] Pt brett well. Invega Sustenna 07/30/2023 117 mg Pt brett we ll. Manufact by [employer] [facility] Sustenna 08/26/2023 117 mg Manufact by [employer] Pt brett well. Invega Sustenna 10/21/2023 117 mg Manufact by [employer] Pt brett well. Invega Sustenna 12/09/2023 117 mg Pt brett we ll. Manufact by [employer] [facility] Sustenna 02/17/2024 117 mg Manufact by [employer] Pt brett well. Invega Sustenna 03/16/2024 117 mg Pt brett we ll. Invega Sustenna 04/20/2024 117 mg Pt brett we ll. Invega Sustenna 06/15/2024 117 mg Manufact by [employer] Pt brett well. Invega Sustenna 07/19/2024 117 mg Pt brett we ll. Invega Sustenna 08/17/2024 117 mg Pt brett we ll. Invega Sustenna 09/14/2024 117 mg Pt brett we ll. Manufact by [employer] Medical (General) History Medical History History ICD Code anxiety Surgical History Surgery Date(Month/Year) 2019 tubal ligation 2019 Hospitalization History Reason Date(Month/Year) 2019 Urgent care for toothache Nov 2023
== END 2024-11-29 12:36 | disposition home or self-care (01) ==
PROVIDERS: PCP Internal Medicine; Visit Provider Internal Medicine
DX: M53.87 Other specified dorsopathies, lumbosacral region (principal); K76.0 Fatty (change of) liver, not elsewhere classified
CPT/HCPCS: 72148

== ENCOUNTER 2024-12-01 16:10 | Observation (INO) | payer MEDICAID, SELFPAY ==
--- OUTSIDE RECORDS SUMMARY | 2024-11-29 11:16 | XMS_ITS ---
Author Organization [facility] Address [address] [place] [address] Care Team Providers Care Rack Worker Name Role Phone Michel Neff Primary Care Provider Habib, Arif Unavailable [phone] [facility] Unav ailable Unavailable Reason For Referral Reason already sees Dr. Francine sharp for bariatric surgery and now has a post op hernia to fix Diagnosis 1 Abdominal wall herni a (K43.9) Referral Organization [facility] Referring Provider First Name Michel Referring Provider Last Name Aishwarya Referring Provider Speciality Internal M edicine Referred Provider Specialty Surgery General Notes Bárbara Dejesus 04:15:49 PM >Referral faxed.Oleg Melanie D 11/30/2024 04:15:56 PM >Referral letter & message sent to client.Oleg Melanie D 11/30/2024 04:22:02 PM >Talked with client who reported that she will call MD Askew's office tomorrow to get scheduled & will call [facility] back with appointment date.Oleg Melanie D 12/01/2024 02:32:41 PM >Referral refaxed. See Oleg Arellano Melanie D 12/01/2024 02:35:34 PM > Clinical Notes MD Askew [facility], General Surgery at [facility], [address], [place] [address], , Referral Priority Routine REASON FOR VISIT Work Letter Social History Sex Assigned At : Social History Observation Description Sex Assigned At Female Encounters Encounter Location Date Provider Diagnosis [facility] [place] [address] 11/29/2024 Michel Neff Abdominal wall hernia K43.9 Assessments Encounter Date Diagnosis (ICD Code) Assessment Notes Treatment Notes Treatment Clinical Notes Section Notes 11/29/2024 Abdominal wall hernia (ICD-10 - K43.9) Plan Of Treatment Referrals Referral Date Details 11/30/2024 11/30/2024, already sees Dr. Denise for bariatric surgery and now has a post op hernia to fix Next Appt Details Provider Name:Michel Neff , 12/08/2024 09:20:00 AM, [address], [place], [address], Progress Notes * JESSY FrancesB: 8 (34 yo F)Acc No.[id number]:11/29/2024 UNLOCKED PROGRESS NOTE Patient: Manisha COATES :1990 A ge:34 Y S ex:Female Address:[address] [place] [address], [address] Subjective: * Chief Complaints: * W ork Letter * HPI: E R/Hospital Follow-up: ER/Hopsital/Urgent Care follow-up. Notification of ER/hospital visit from: . , Nurse instructed pt to go to ER or Urgent Care 12/01/24. If instructed by nurse/provider, did the pt go to ER/UC? E R/Urgent Care follow-through Y es . Date of ER/urgent visit or hospitalization: . 12/01/24 went to [facility] & was admitted to the hospital. Reason for the Visit: C omplaints of pain and numbness to LLE and BUE, unable to urinate, & no BM x 1 week.. Visit Type and Location: . , Inpatient HospitalizationAnderson. Disclosure signed to obtain records: . . Records Requested Date D ate, First Attempt: . D ate, Second Attempt: . D ate, Third Attempt: . Records Received: D ate Records Received . Medication Changes: . . Signficant labs, imaging or other results: . , Yes (specify):Per MD Neff abnormal liver enzymes.. New diagnoses? . . Provider recommended f/u: . . ER/Hospital F/U appointment with [facility]: [facility] f/u appointment date: . Appointment Kept? D id the patient keep the appointment with CF? . Nurse completing documentation [facility] Nurses Sabino Dejesus RN . C [facility] Nurses . * Medical History: * Surgical History: * Hospitalization/Major Diagno stic Procedure: * Medications: Objective: * Vitals: * Physical Examination: Assessment: * Assessment: 1. A bdominal wall hernia - K43.9 (Primary) Plan: * Treatment: * Procedure Codes: C HS01 ER/hospitalization continuity of care * * Date: History and Physical Notes * HPI (History of Present Illness) Category Sub-Category Detail Notes Category Not es ER/Hospital Follow-up Visit Type and Location: ., Inpatient HospitalizationAnderson Disclosure signed to obtain records: . Records Requested Date Date, First Attempt:: . Date, Second Attempt:: . Date, Third Attempt: : . Records Received: Date Records Received: . Medication Changes: . Signficant labs, imaging or other result s: ., Yes (specify):Per MD Neff abnormal liver enzymes. New diagnoses? . Provider recommended f/u: . ER/Hospital F/U appointment with [facility]: [facility] f/u appointment date:: . Notification of ER/hospital visit from: ., Nurse instructed pt to go to ER or Urgent Care 12/01/24 Reason for the Visit: Complaints of pain and numbness to LLE and BUE, unable to urinate, & no BM x 1 week. Date of ER/urgent visit or hospitalizati on: .12/01/24 went to [facility] & was admitted to the hospital Nurse completing documentation [facility]: Bárbara Dejesus RN . [place] [facility] Nurses: . If instructed by nurse/baldomero nogueira, did the pt go to ER/UC? ER/Urgent Care follow-through: Yes . Appointment Kept? Did the patient keep the appointment with [facility]?: . Consultation Request Notes Referral Date Referring Provider Referred Provider Not 11/30/2024 Michel Neff , already sees Coral Denise for bariatric surgery and now has a post op hernia to fix
--- OUTSIDE RECORDS SUMMARY | 2024-11-29 11:16 | XMS_ITS ---
Author Organization [facility] Address [address] [place] [address] Care Team Providers Care Utility Accounts Director Name Role Phone Michel Neff Primary Care Provider HabFreddie cruz Unavailable [phone] [facility] Unav ailable Unavailable Reason For Referral Reason already sees Dr. Francine sharp for bariatric surgery and now has a post op hernia to fix Diagnosis 1 Abdominal wall herni a (K43.9) Referral Organization [facility] Referring Provider First Name Michel [...] tomorrow to get scheduled & will call [facility] back with appointment date. Clinical Notes MD Askew [facility], General Surgery at [facility], [address] [place] [address] [address], [place] [address], , Referral Priority Routine REASON FOR VISIT Work Letter Social History Sex Assigned At : Social History Observation Description Sex Assigned At Female Encounters Encounter Location Date Provider Diagnosis [address] [place] [address] 11/29/2024 Michel Neff Abdominal wall hernia K43.9 [...] Name:Michel Neff , 12/08/2024 09:20:00 AM, [address] [address], [place], [address], Progress Notes * Frances LUNDYB: 8 (34 yo F)Acc No.[id number]:11/29/2024 UNLOCKED PROGRESS NOTE Patient: Manisha COATES :1990 A ge:34 Y S ex:Female Address:[address] [place] [address], [address] Subjective: * Chief Complaints: * W ork Letter * Medical History: * Surgical History: * Hospitalization/Major Diagno stic Procedure: * Medications: Objective: * Vitals: * Physical Examination: Assessment: * Assessment: 1. A bdominal wall hernia - K43.9 (Primary) Plan: * Treatment: * Procedure Codes: * * Date: Consultation Request Notes Referral Date Referring Provider Referred Provider Not es 11/30/2024 Michel Neff , already sees Coral Denise for bariatric surgery and now has a post op hernia to fix
--- NOTE | ~2024-12-01 | US_ITS ---
EXAMINATION:US venous doppler LE BI INDICATION:Leg pain TECHNIQUE: Multiple grayscale, color flow and Doppler images of the right and left lower extremity deep venous systems were obtained and reviewed. COMPARISON:No prior studies for comparison. FINDINGS: The common femoral, superficial femoral and popliteal veins demonstrate normal respiratory variation, augmentation and compressibility. Color flow is also seen within the posterior tibial, peroneal, greater saphenous and profunda veins. IMPRESSION: 1: No lower extremity deep venous thrombosis. Reviewed, dictated and finalized at location O.
--- NOTE | ~2024-12-01 | CT_ITS ---
EXAMINATION: CT abdomen pelvis wo con DATE: 12/01/2024 19:28 INDICATION: Hematuria TECHNIQUE: Computed tomography (CT) of the abdomen and pelvis was performed without intravenous contrast. The dose-length product was 1015.56 mGy-cm. Automated exposure control and iterative reconstruction technique were employed. COMPARISON: None. FINDINGS: Lung bases unremarkable. Heart size normal. No significant pleural or pericardial effusion. Status post cholecystectomy. The liver, spleen, pancreas, adrenal glands and kidneys are unremarkable. Nonobstructive bowel gas pattern. No abnormal pelvic masses or fluid collections. No significant vascular abnormality. No lymphadenopathy there are changes of gastric bypass surgery. No acute osseous abnormality. IMPRESSION: 1. No acute abdominal abnormality. Reviewed, dictated and finalized at location A.
--- NOTE | ~2024-12-01 | US_ITS ---
EXAM: ABDOMEN ULTRASOUND HISTORY: Transaminitis COMPARISON: Reference is made to CT examination of the abdomen and pelvis performed approximately 2 hours earlier as well as a previous CT examination dated 09/26/2024 FINDINGS: LIVER: The liver is increased in echogenicity and size measuring 21 cm in longitudinal dimension. The portal vein is patent, demonstrating hepatopedal flow. GALLBLADDER: Surgically absent BILE DUCTS: Common bile duct measures 2.3mm. PANCREAS: Limited evaluation of the pancreas secondary to overlying bowel gas IMPRESSION: Limited evaluation of the pancreas secondary to overlying bowel gas Fatty infiltration of an enlarged liver. While the liver is increased in size, it has decreased in size from previous examination performed 09/26/2024. Reviewed, dictated and finalized at location A. IMPRESSION: Limited evaluation of the pancreas secondary to overlying bowel gas Fatty infiltration of an enlarged liver. While the liver is increased in size, it has decreased in size from previous ex amination performed 09/26/2024.
--- NOTE | ~2024-12-01 | MR_ITS ---
EXAMINATION: MR abdomen wo/w con DATE: 12/03/2024 13:38 INDICATION: Transaminitis. Assess for hepatic vein thrombosis. TECHNIQUE: Magnetic resonance imaging (MRI) of the abdomen was performed without and with 19 mL Multihance intravenous contrast. Sequences included coronal T2- weighted SS-FSE, coronal and axial FS 2D-FIESTA, axial STIR FSE, axial T2- weighted SS-FSE, axial T2-weighted FS SS-FSE, axial diffusion-weighted SE, axial dual-echo T1-weighted FSPGR, and axial and coronal T1-weighted LAVA. Postcontrast axial T1-weighted LAVA images were obtained in a time course. Postcontrast coronal T1-weighted LAVA images were obtained. COMPARISON: CT dated 12/01/2024 FINDINGS: Heart size is normal. No pericardial or pleural effusion. Small sliding-type hiatal hernia. Low signal intensity along the greater curvature of the stomach or spine to a suture line on prior CT consistent with prior sleeve gastrectomy. Minimal amount of central pneumobilia in the right hepatic lobe likely related to the prior cholecystectomy. Liver is otherwise normal with no intrahepatic biliary ductal dilation, portal venous thrombosis or hepatic venous thrombosis. Spleen, pancreas, bilateral adrenal glands and kidneys are normal. Visualized bowels are unremarkable with no obstruction. No pathologically enlarged abdominal or upper pelvic lymphadenopathy. No evident abscess or free intraperitoneal gas within the visualized abdomen. Mild stranding along likely laparoscopy port tracts along the right anterior to central abdominal wall. Mild lower thoracic spondylosis. Visualized bone marrow signal is normal. IMPRESSION: 1. Small amount of pneumobilia in the right hepatic lobe likely related to prior cholecystectomy. No biliary ductal dilation, portal venous thrombosis or hepatic venous thrombosis. Reviewed, dictated and finalized at location A. IMPRESSION: 1. Small amount of pneumobilia in the right hepatic lobe likely related to prio r cholecystectomy. No biliary ductal dilation, portal venous thrombosis or hepa tic venous thrombosis.
--- OUTSIDE RECORDS SUMMARY | 2024-12-01 16:14 | XMS_ITS | Clinical Summary ---
Author Organization [facility] Address [facility] [place] [address] Care Team Providers Care Tool Clerk Name Role Phone Unavailable Primary Care [...]
--- OUTSIDE RECORDS SUMMARY | 2024-12-01 16:14 | XMS_ITS | Patient Health Record ---
Author Organization [facility] Address [address] [place] [address] Care Team Providers Care Plaster Whittler Name Role Phone Michel Neff Primary Care Provider [phone] HabFreddie cruz Unavailable [phone] [facility] Unav ailable Unavailable Jacy Wen Unavailable [phone] Allergies No Known Allergies Results Component Value Reference Range Notes MRI : Lumbar without contras t Reviewed date:11/30/2024 08:05:42 AM Interpretation: Performing Lab: Notes/Report: Test, Urine Reviewed date:03/19/2024 03:41:54 PM Interpretation: Performing Lab: Notes/Report: Test, Urine neg Negative - Negative Reason For Referral Reason [facility] Diagnosis 1 Morbid (severe) obes ity due to excess calories (E66.01) Referral Organization [facility] Referring Provider First Name Michel Referring Provider Last Name Aishwarya Referring Provider Speciality Internal M edicine Referred Provider Specialty Bariatric Gandhi rgery General Notes Latesha Vega 02/13 02:28:31 PM > Referral sent to Dr. Askew-Bariatric Surgeon in [place]. Letter sent to patient., Bárbara Dejesus 11/30/2024 04:24:02 PM >This was completed. Notes in chart from 08/05/24 and 11/04/24. MD Neff reviewed noted. Closing out referral. Clinical Notes Bariatric Surgeon, Coral Askew, [address] [place] [address], [address], [facility], [address], ph: [phone], fax: [phone] Referral Priority Routine Reason INGROWN TOENAIL, PRE FERS CAHOKIA Diagnosis 1 Ingrown right greate r toenail (L60.0) Referral Organization [facility] Referring Provider First Name Michel Referring Provider Last Name Aishwarya Referring Provider Speciality Internal edicine Referred Provider Specialty Podiatry General Notes Tang Monet Kenji 0 07/13/2024 02:21:06 PM > referral sent to Podiatry. Letter sent Clinical Notes [facility] - Pod[facility], [place], [place], [address] [place] [address], , Referral Priority Urgent Reason already sees Dr. Francine sharp for bariatric surgery and now has a post op hernia to fix Diagnosis 1 Abdominal wall herni a (K43.9) Referral Organization [facility] Referring Provider First Name Michel Referring Provider Last Name Aishwarya Referring Provider Speciality Internal edicine Referred Provider Specialty Surgery General Notes Bárbara Dejesus 04:15:49 PM >Referral faxed., Bárbara Dejesus 11/30/2024 04:15:56 PM >Referral letter & message sent to client.Oleg Melanie D 11/30/2024 04:22:02 PM >Talked with client who reported that she will call MD Askew's office tomorrow to get scheduled & will call [facility] back with appointment date. Clinical Notes MD Askew [facility], General Surgery at [facility], [address], [place] [address], , Referral Priority Routine Medications Medication SIG (Take, Route, Frequency, Duration) [...] Once a day; Duration: 30 days Active HYDROcodone-Acetaminophen 5-325 MG 1 tablet as needed Orally every 8 hours; Duration: 7 days As needed severe pain due to herniated lumbar disc 11/29/2024 Active hydrOXYzine HCl 25 MG 1 tablet [...] 6 HOURS; Duration: 5 days 03/25/2024 Active Vitamin D (Ergocalciferol) 1.25 MG (84043 UT) TAKE 1 CAPSULE BY MOUTH EVERY [...] Status Risk Notes Problem Morbid obesity (disorder) (084604979) Morbid (severe) obesity due to excess calories (E66.01) Active confirmed Problem Secondary amenorrhea (855742764) Secondary amenorrhea (N91.1) Active confirmed Problem Vitamin D deficiency (98958902) Vitamin D insufficiency (E55.9) Active confirmed Problem Anxiety (32639045) Anxiety (F41.9) Active confirmed Problem Schizophrenia (35300671) Schizophrenia (F20.9) Active confirmed Problem Menstrual disorder (600250302) Irregular menses (N92.6) Active confirmed Problem Overweight (978009500) Over weight (E66.3) Active confirmed Problem Depressive disorder (disorder) (02167461) Depression, unspecified depression type (F32.9) 03/24/20 20 Active confirmed Problem Tension headache (412968176) Tension headache (G44.209) Active confirmed Problem Obese class I (finding) (106582655355448) Obesity (BMI 30.0-34.9) (E66.9) Active confirmed Problem Schizophrenia (98583386) Schizophrenia, unspecified type (F20.9) Active confirmed Problem Migraine (69429014) Migraine without status migrainosus, not intractable, unspecified migraine type (G43.909) Active confirmed Problem Tobacco use (569153793) Tobacco use disorder (F17.200) Active confirmed Problem Pain in female genitalia on intercourse (39551911) Dyspareunia in female (N94.10) Active confirmed Problem Obesity (944916398) Obesity, unspecified classification, unspecified obesity type, unspecified whether serious comorbidity present (E66.9) Active confirmed Problem Disorder of left patellofemoral joint (308149531694246) Patellofemoral syndrome, left (M22.2X2) Active confirmed Problem Constipation by delayed colonic transit (46948728) Constipation by delayed colonic transit (K59.01) Active confirmed Problem Disorder of sacrum (44909048) 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) Active confirmed Problem Body mass index 40+ - severely obese (229856135) Body mass index [BMI] 40.0-44.9, adult (Z68.41) Active confirmed Vital Signs Heart Rate 64 /min 11/29/2024 Temperature 98.1 degrees Fahrenheit 11/29/2024 Respiratory Rate 18 /min 11/29/2024 Oximetry 99 % 11/29/2024 Blood pressure diastolic 58 mm Hg 11/29/2024 Height 60 in 11/29/2024 Blood pressure systolic 108 mm Hg 11/29/2024 Weight 204.2 lbs 11/29/2024 BMI 39.88 kg/m2 11/29/2024 Encounters Encounter Location Date Provider Diagnosis [address] [place] [address] 12/09/2023 Arif Habib Schizophrenia F20.[address] [address] 12/22/2023 Michel Neff Morbid (severe) obesity due to excess calories E66.01 ; Migraine without status migrainosus, not intractable, unspecified migraine type G43.909 ; Patellofemoral arthralgia of right knee M25.561 and Tinea corporis B35.[address] [address] 02/10/2024 Michel Neff Patellofemoral arthralgia of right knee M25.561 ; Tension headache G44.209 ; Tinea corporis B35.4 and Morbid (severe) obesity due to excess calories E66.[address] [address] 02/17/2024 Arif Habib Schizophrenia F20.9 and Nutritional counseling Z71.[address] [address] 03/08/2024 Michel Neff Nutritional counseling Z71.3 and Morbid (severe) obesity due to excess calories E66.[address] [address] 03/16/2024 Arif Habib Nutritional counseling Z71.3 and Schizophrenia F20.9 [facility] [address] [place] [address] 03/19/2024 Michel Neff Epigastric pain R10.13 ; Dyspareunia in female N94.10 ; Irregular menses N92.6 ; Tension headache G44.209 ; Nutritional counseling Z71.3 and Morbid (severe) obesity due to excess calories E66.[address] [address] 03/25/2024 Michel Neff Tension headache G44.209 and Epigastric pain R10.[address] [address] 04/20/2024 Arif Habib Nutritional counseling Z71.3 and Schizophrenia F20.[address] [address] 04/26/2024 Michel Neff Dorsalgia of multipl e sites in spine M54.9 and Nutritional counseling Z71.3 [facility] [address] [place] [address] 06/11/2024 Michel Neff Migraine without status migrainosus, not intractable, unspecified migraine type G43.909 ; Obesity, unspecified classification, unspecified obesity type, unspecified whether serious comorbidity present E66.9 and Dyspareunia in female N94.[address] [address] 06/15/2024 Arif Habib Nutritional counseling Z71.3 and Schizophrenia F20.[address] [address] 07/08/2024 Michel Neff Ingrown right greate r toenail L60.0 ; Cellulitis L03.90 ; Morbid (severe) obesity due to excess calories E66.01 and Nutritional counseling Z71.[address] [address] 07/19/2024 Michel Neff Over weight E66.3 ; Patellofemoral syndrome, left M22.2X2 and Schizophrenia F20.[address] [address] 08/16/2024 Arif Habib [address] [address] 08/17/2024 Arif Habib Schizophrenia F20.[address] [place] [address] 09/14/2024 Arif Habib Nutritional counseling Z71.3 and Schizophrenia F20.[address] [place] [address] 09/15/2024 Michel Neff Over weight E66.3 ; Hair loss L65.9 ; Dorsalgia of multiple sites in spine M54.9 ; Migraine without status migrainosus, not intractable, unspecified migraine type G43.909 and Patellofemoral syndrome, left M22.2X2 [address] [place] [address] 11/16/2024 Arif Habib Over weight E66.3 ; Nutritional counseling Z71.3 and Schizophrenia F20.[address] [place] [address] 11/18/2024 Michel Neff Migraine without status migrainosus, not intractable, unspecified migraine type G43.909 ; Epigastric pain R10.13 ; Obesity (BMI 30.0-34.9) E66.9 and Over weight E66.3 [facility] [address] [place] [address] 11/29/2024 Michel Neff Sciatica associated with disorder of lumbosacral spine M53.87 [facility] [address] [place] [address] 11/29/2024 Michel Neff Abdominal wall herni a K43.9 [facility] [address] [place] [address] 12/31/2023 Micehl Neff [facility] [address] [place] [address] 01/22/2024 Jacy Wen [address] [place] [address] 04/20/2024 Arif Habib [address] [place] [address] 07/08/2024 Michel Neff [place] [place] [address] 08/05/2024 Michel Neff Morbid (severe) obesity due to excess calories E66.01 [facility] [address] [place] [address] 11/29/2024 Michel Neff [address] [facility] [place] [address] 11/30/2024 Michel Neff Assessments Encounter Date Diagnosis (ICD Code) Assessment Notes Treatment Notes Treatment Clinical Notes Section Notes 02/10/2024 Patellofemoral arthralgia of right knee (ICD-10 - M25.561) 06/11/2024 Migraine without status migrainosus, not intractable, unspecified migraine type (ICD-10 - G43.909) 11/29/2024 Abdominal wall hernia (ICD-10 - K43.9) 11/18/2024 Migraine without status migrainosus, not intractable, unspecified migraine type (ICD-10 - G43.909) 11/29/2024 Sciatica associated with disorder of lumbosacral spine (ICD-10 - M53.87) CALLED [facility] AND THEY WILL PERFORM A STAT MRI OF THE LS SPINE LATER THIS AM. MRI WITH L3-4 BILATERAL FORAMINAL STENOSIS DUE TO DISC PROTRUSION, L4-5 MIL LEFT FORMINAL DISC PROTRUSION. TO REST AND REMAIN OFF WORK FOR 2 WEEKS 06/11/2024 Obesity, unspecified classification, unspecified obesity type, [...] E66.3) 11/18/2024 Epigastric pain (ICD-10 - R10.13) 02/17/2024 Schizophrenia (ICD-10 - F20.9) Continue current [...] provided 02/17/2024 Nutritional counseling (ICD-10 - Z71.3) 11/16/2024 Nutritional counseling (ICD-10 - Z71.3) 09/15/2024 [...] 06/11/2024 Dyspareunia in female (ICD-10 - N94.10) 11/18/2024 Obesity (BMI 30.0-34.9) (ICD-10 - E66.9) 07/08/2024 Nutritional counseling (ICD-10 - Z71.3) 03/19/2024 [...] voiced understanding of all. Plan Of Treatment Next Appt Details Provider Name:Michel Neff , 12/08/2024 09:20:00 AM, [address] [facility], [place], [address], Insurance Providers Payer Name Payer Address Payer Phone Subscriber Number Group Number Insured Name Patient Relationship to Insured Coverage Start Date Coverage End Date [facility] Att Claims Department [address] [place] [address] [id number] Manisha Lundy Self - patient is the insured 5 5 [facility] [address] [place] [address] [id number] Manisha Lundy Self - patient is the insured 4 5 MEDICAID [address] [place] [address] [id number] Manisha Lundy Self - patient is the insured 4 5 [facility] [address] [place] [address] [id number] Manisha Lundy Self - patient is the insured 5 5 MEDICAID [address] [place] [address] [id number] Manisha Lundy Self - patient is the insured 5 [facility] Attn Claims Department [address] [place] [address] [id number] Manisha Lundy Self - patient is the insured 2 4 [facility] Attn Claims Department [address] [place] [address] [id number] Manisha Ludny Self - patient is the insured 5 5 [facility] [address] [place] [address] [id number] Manisha Lundy Self - patient is the insured 5 5 Medications Administered Medication Instructions Date of Administration Dosage Notes Invega Sustenna 05/23/2020 156 mg Manufact by [employer]. Pt brett wel. 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 Pt voiced no [...] observed. Invega Sustenna 12/31/2022 156 mg Pt bertt we ll. Invega Sustenna 01/29/2023 156 mg Pt brett we ll. Invega Sustenna 03/11/2023 156 mg Pt brett we ll. Manufact by [employer] Invega Sustenna 04/08/2023 156 mg Pt brett we ll. Manufact by [employer]. Invega Sustenna 05/07/2023 156 mg Pt brett we ll. Invega Sustenna 07/01/2023 156 mg [employer] by [employer] Pt brett well. Invega Sustenna 07/30/2023 117 mg Pt brett we ll. Manufact by [employer] [facility] 08/26/2023 117 mg [employer] by [employer] Pt brett well. Invega Sustenna 10/21/2023 117 mg [employer] by [employer] Pt brett well. Invega Sustenna 12/09/2023 117 mg Pt brett we ll. [employer] by [employer] [facility] 02/17/2024 117 mg [employer] by [employer] Pt brett well. Invega Sustenna 03/16/2024 117 mg Pt brett we ll. Invega [employer]ustenna 04/20/2024 117 mg Pt brett we ll. Invega [employer]ustenna 06/15/2024 117 mg [employer] by [employer] Pt brett well. Invega Sustenna 07/19/2024 117 mg Pt brett we ll. Invega [employer]ustenna 08/17/2024 117 mg Pt brett we ll. Invega [employer] 09/14/2024 117 mg Pt brett we ll. [employer] by [employer] Medical (General) History Medical History History ICD Code anxiety Surgical History Surgery Date(Month/Year) 2019 tubal ligation 2019 Hospitalization History Reason Date(Month/Year) 2019 Urgent care for toothache Nov 2023
--- OUTSIDE RECORDS SUMMARY | 2024-12-01 16:14 | XMS_ITS | Clinical Summary ---
Author Organization [facility] Address [facility] [place] [address] Care Team Providers Care Sales Account Leader Name Role Phone Michel Neff MD Primary Care Provider [phone] Allergies No known active allergies Medications Invega [...] stay for the surgery. We we will insurance counselor the patient to avoid for 18 [...] Type Department Care Team Description [address] [place] [address] Raul Askew MD 5 9:00 AM CDT Office Visit [address] [place] [address] Raul Askew MD Morbid obesity due to excess calories (HCC) (Primary Dx); Status post gastric surgery 5 [facility] Post Discharge Follow up phone call [facility] Surgery Care 1 [place] [address] Simona Rivera 5 10:46 AM CDT Anesthesia Event [facility] Operating Room 1 [place] [address] Amarjit Borges MD Kory, Christopher James, MD 5 10:30 AM CDT - 5 12:30 PM CDT Surgery [facility] Operating Room 1 [place] [address] Raul Askew MD LAPAROSCOPIC GASTRECTOMY - SLEEVE with hiatal hernia repair 5 6:33 AM CDT - 5 3:49 PM CDT Hospital Encounter [facility] Surgery Care 1 [place] [address] Raul Askew MD Morbid obesity (HCC) Discharge Disposition: Discharge to home or self care 5 8:30 AM CDT Office Visit [facility] [address] [place] [address] [address] [place] [address] Raul Askew MD Morbid obesity due to excess calories (HCC) (Primary Dx) 5 11:38 AM CDT - 5 11:59 PM CDT Hospital Encounter [facility] Nutrition and Diabetic Education 1 [facility] Room [address] [address] Sanchez, Nubia Roberts RD Discharge Disposition: Discharge to home or self care 5 11:20 AM CDT Office Visit [address] [place] [address] Raul Askew MD Morbid obesity due to excess calories (HCC) (Primary Dx) 5 12:25 PM CDT Anesthesia Event [address] [address] Cuauhtemoc Gaona MD 5 12:00 PM CDT - 5 12:30 PM CDT Surgery [address] [address] Raul Askew MD ESOPHAGOGASTRODUODENOSCOPY BIOPSY 5 11:00 AM CDT - 5 1:10 PM CDT Hospital Encounter [address] [address] Raul Askew MD Heartburn Discharge Disposition: Discharge to home or self care 5 10:05 AM CDT Lab [address] Morbid obesity due to excess calories (HCC) 5 9:40 AM CDT Office Visit [address] [place] [address] Raul Askew MD Morbid obesity due to excess calories (HCC) (Primary Dx) from Last 3 Months Surgical History Surgery Date Site/Laterality Comments SECTION TUBAL LIGATION CHOLECYSTECTOMY 09/28/2024 [facility] SLEEVE GASTROPLASTY 11/04/2024 Medical History Medical [...] on file 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 Gender Identity Not on file Sexual Orientation [...] 11/10/2024 1:17 PM CDT Morbid obesity (HCC) [place] AN ELECTIVE ENDOTRACHEAL AIRWAY Routine 11/10/2024 11:27 [...] LAB BLOOD ORDERA BLES Final Result [facility] ([place]) 1 [facility] Department of Laboratories [place], [place] [id number] * (ABNORMAL) CBC without differential (11/11/2024 4:05 AM CDT) WBC 5.57 3.80 - 9.90 K/cumm Hgb 10.8(L) 11.9 - 15.5 g/dL [facility] ([place]) Hct 31.8(L) 35.6 - 45.5 [...] BLES Final Result [facility] ([place]) 1 [facility] [place] [address] * Phosphorus (11/11/2024 4:05 AM CDT) Phosphorus, pl 3.3 2.3 - 4.5 mg/dL [facility] ([place]) Blood 11/11/2024 4:05 AM CDT 11/11/2024 5:31 AM CDT Raul Askew MD LAB BLOOD ORDERA BLES Final Result [facility] ([place]) 1 [facility] [employer] [place] [address] * Magnesium (11/11/2024 4:05 AM CDT) Magnesium 1.8 1.4 - 2.5 mg/dL [facility] ([place]) Blood 11/11/2024 4:05 AM CDT 11/11/2024 5:31 AM CDT Raul Askew MD LAB BLOOD ORDERA BLES Final Result Performing Organization Address City/[facility] Co de Phone Number [facility] ([place]) 1 [facility] Department [place] [address] * (ABNORMAL) Basic metabolic panel (11/11/2024 4:05 [...] LAB BLOOD ORDERA BLES Final Result [facility] ([place]) [address] [place] [address] [place] [address] * Surgical pathology (11/10/2024 1:17 PM CDT) Tissue (Stomach - Subtotal / Total Resection, non-Tumor) 11/10/2024 11:12 AM CDT Comment:Placed in formalin a t time of drop off Narrative PATHOLOGY [facility] ([place]) - 11/12/2024 12:55 PM CDT EPIC results best viewed via link to PDF [facility] Department of Pathology [address] [place] [address] Note to Patients: This report may contain [...] Final Report Patient Name: MANISHA JIMÉNEZ Address: [address] [place] [address] Gender: F : 1990 (Age: 34) Service: Surgery Location: [facility] Hospital #: [id number] Patient Type: [facility] Taken: 11/10/2024 Received: 11/10/2024 Accessioned: 11/10/2024 [...] determined by the Surgical Pathology Department at [facility] as part of an ongoing manager quality systems program and in compliance with federally mandated [...] characteristics determined by the Surgical Pathology Department [facility]. It has not been cleared or approved by the U. S. Food and Drug Administration. Note for decalcified specimens: This assay has not been validated on decalcified tissues. Results should be interpreted with caution given the possibility of false negativity on decalcified specimens Raul Askew MD LAB PATHOLOGY OR DERABLES Final Result [facility]Y [facility] ([facility] 1 [place], [place] [id number] * FL AN ELECTIVE ENDOTRACHEAL AIRWAY (11/10/2024 11:27 AM [...] LAB BLOOD ORDERA BLES Final Result [facility] ([place]) 1 [facility] [place] [address] [facility] * eGFR (11/10/2024 8:48 [...] ORDERA BLES Final Result Performing Organization Address [facility] Co de Phone Number [facility] ([place]) [address] [place] [address] [place] [address] * ABO/Rh (11/10/2024 8:48 AM CDT) ABO/Rh O Positive Blood 11/10/2024 8:48 AM CDT 11/10/2024 8:53 AM CDT Narrative [facility] ([place]) - 11/10/2024 9:33 AM CDT Has the patient had Daratumumab or Isatuximab in the past 6 months?->Unknown Raul Askew MD LAB BLOOD BANK T EST ORDERABLES Final Result Performing Organization Address [facility] Co de Phone Number [facility] ([place]) [address] [place] [address] * Antibody screen (11/10/2024 8:48 AM CDT) Antonio, indirect, Gel Interpretation Negative ABSC Blood 11/10/2024 8:48 AM CDT 11/10/2024 8:53 AM CDT Narrative [facility] ([place] - 11/10/2024 9:33 AM CDT Has the patient had Daratumumab or Isatuximab in the past 6 months?->Unknown Raul Askew MD LAB BLOOD BANK T EST ORDERABLES Final Result [facility] ([place]) 1 [facility] [place] [address] * (ABNORMAL) Basic metabolic panel (11/10/2024 8:48 [...] ([place]) Glucose 91 70 - 199 mg/dL [facility] ([place]) Comment: Interpretive Data [...] 2022. Calcium 10.0 8.5 - 10.3 mg/dL [facility] ([place]) Blood 11/10/2024 8:48 AM CDT 11/10/2024 8:53 AM CDT us Raul Askew MD LAB BLOOD ORDERA BLES Final Result [facility] ([place]) 1 [facility] [place] [address] * EGD (09/07/2024 11:57 AM CDT) Anatomical Region Laterality Modality Other Narrative Procedure Note Raul Askew MD - 09/07/2024 11:57 AM CDT Center Patient Name: Manisha Jiménez Procedure Date: 09/07/2024 11:57 AM Date of : 1990 Admit Type: Outpatient Age: 34 Gender: Female Attending MD: Raul Askew M.D. Room: [facility] ENDOSCOPY ROOM 2 Note Status: Finalized Patient [...] passed under direct vision. The Endoscope [id number] was introduced through the mouth, and advanced [...] 11:57 AM Procedure Code(s): --- Professional --- 33639, Esophagogastroduodenoscopy, flexible, transoral; with biopsy, single or multiple --- Technical --- 28415, Esophagogastroduodenoscopy, flexible, transoral; with biopsy, single or multiple Diagnosis Code(s): --- Professional --- K31.89, Other diseases of stomach and duodenum K22.89, Other specified disease of esophagus --- Technical --- K31.89, Other diseases of stomach and duodenum K22.89, Other specified disease of esophagus CPT copyright 2020 [employer]. All rights reserved. The codes documented in this report are preliminary and upon social worker delinquency prevention reviewmay be revised to meet current compliance requirements. Recognized by the [employer] for promoting quality in endoscopy Raul Askew MD ENDOSCOPY PROCED URES Final Result * Thyroid Function [place] (09/07/2024 10:11 AM CDT) TSH 0.35 0.30 - 4.20 mcIUnit/mL Blood 09/07/2024 10:1 1 AM CDT 09/07/2024 1:10 PM CDT Raul Askew MD LAB BLOOD ORDERA BLES Final Result Performing Organization Address [facility]/ZIP Co de Phone Number [facility] ([place]) [address] [place] [address] [place] [address] * Iron profile w/ IBC (09/07/2024 10:11 AM CDT) Iron 79 35 - 145 mcg/dL TIBC 312 250 - 400 mcg/dL [facility] ([place]) Transferrin saturation 25 20 - 50 % [facility] Blood 09/07/2024 10:1 1 AM CDT 09/07/2024 1:10 PM CDT Raul Askew MD LAB BLOOD ORDERA BLES Final Result Performing Organization Address City/[facility]/ZIP Co de Phone Number [facility] ([place]) 1 [facility] [place] [address] * Vitamin A (09/07/2024 10:11 AM CDT) Vitamin A 35.8 32.5 - 78.0 mcg/dL [facility] Lab Comment: ADDITIONAL INFORMATION This test was developed and its performance characteristics determined by [facility] in a manner consistent with CLIA requirements. This test has not been cleared or approved by the U.S. Food and Drug Administration. Test Performed by: [facility] - [address] [address] Oral And Maxillofacial Surgeon: Bharathi Luna Ph.D.; CLIA# [id number] Blood 09/07/2024 10:1 1 AM CDT 09/07/2024 1:10 PM CDT Raul Askew MD LAB BLOOD ORDERA BLES Final Result Performing Organization Address City/[facility]/ZIP Co de Phone Number [facility] ([place]) 1 [facility] [place] [address] [facility] ref [facility] * (ABNORMAL) Vitamin D 25 hydroxy (09/07/2024 10:11 AM CDT) Vitamin D 25-OH 14(L) 30 - 80 ng/mL Blood 09/07/2024 10:1 1 AM CDT 09/07/2024 1:10 PM CDT Raul Askew MD LAB BLOOD ORDERA BLES Final Result Performing Organization Address City/[facility]/ZIP Co de Phone Number [facility] ([place]) 1 [facility] [place] [address] * Vitamin B1 (09/07/2024 10:11 AM CDT) Thiamine (Vit B1) 100 70 - 180 nmol/L [facility] Comment: ADDITIONAL INFORMATION This test was developed and its performance characteristics determined by [facility] in a manner consistent with CLIA requirements. This test has not been cleared or approved by the U.S. Food and Drug Administration. Test Performed by: [facility] - [address], [place] [address] Oral And Maxillofacial Surgeon: Bharathi Luna Ph.D.; CLIA# [id number] Blood 09/07/2024 10:1 1 AM CDT 09/07/2024 1:00 PM CDT Raul Askew MD LAB BLOOD ORDERA BLES Final Result Performing Organization Address [facility] Co de Phone Number [facility] ([place]) 1 [place] [address] [facility] ref [facility] * Hemoglobin A1c (09/07/2024 [...] and children were not included. (Diabetes Care 31:4346-7375, 2008). The eAG is not equivalent to a fasting glucose. Blood 09/07/2024 10:1 1 AM CDT 09/07/2024 1:10 PM CDT us Raul Askew MD LAB BLOOD ORDERA BLES Final Result Performing Organization Address [facility] Co de Phone Number [facility] ([place]) 1 [place] [address] * Glucose, fasting (09/07/2024 10:11 AM CDT) Glucose, fasting 78 70 - 99 mg/dL Blood 09/07/2024 10:1 1 AM CDT 09/07/2024 1:10 PM CDT Raul Askew MD LAB BLOOD ORDERA BLES Final Result Performing Organization Address City[facility] Co de Phone Number [facility] ([place]) [address] [facility] [place] [address] * Folate (09/07/2024 10:11 AM CDT) Pathologist [facility] Folic acid 10.3 >=5.0 ng/mL Comment:Slightly Hemolyzed S pecimen. Results may be affected. Blood 09/07/2024 10:1 1 AM CDT 09/07/2024 1:10 PM CDT Raul Askew MD LAB BLOOD ORDERA BLES Final Result [facility] ([place]) 1 [place] [address] * Ferritin (09/07/2024 10:11 AM CDT) [facility] Ferritin 90 15 - 150 ng/mL Blood 09/07/2024 10:1 1 AM CDT 09/07/2024 1:10 PM CDT Raul Askew MD LAB BLOOD ORDERA BLES Final Result [facility] ([place]) [address] [facility] [place] [address] * Vitamin B12 (09/07/2024 10:11 AM CDT) [facility] Vitamin B12 534 230 - 1,250 pg/mL Blood 09/07/2024 10:1 1 AM CDT 09/07/2024 1:10 PM CDT Raul Askew MD LAB BLOOD ORDERA BLES Final Result [facility] ([place]) [address] [facility] [place] [address] * Lipid panel (09/07/2024 10:11 AM CDT) [...] BLOOD ORDERA BLES Final Result [facility] ([place]) 1 [facility] [place] [address] * Surgical pathology (09/07/2024 10:01 AM CDT) Tissue (Gastric/Stomach biopsy) 09/07/2024 12:35 PM CDT Tissue specimen (specimen) ([place], Biopsy) 09/07/2024 12:36 PM CDT Narrative [facility]OLOGY [facility] ([place]) - 09/10/2024 10:20 AM CDT EPIC results best viewed via link to PDF [facility] Department of Pathology [address] [place] [address] Note to Patients: This report may contain [...] Final Report Patient Name: MANISHA JIMÉNEZ Address: [address] [place] [address] Gender: F : 1990 (Age: 34) Service: Surgery Location: [facility] Hospital #: [id number] Patient Type: [facility] Taken: 09/07/2024 Received: 09/08/2024 Accessioned: 09/08/2024 Reported: [...] determined by the Surgical Pathology Department at [facility] as part of an ongoing manager quality systems program and in compliance with federally mandated [...] characteristics determined by the Surgical Pathology Department [facility]. It has not been cleared or approved by the U. S. Food and Drug Administration. Note for decalcified specimens: This assay has not been validated on decalcified tissues. Results should be interpreted with caution given the possibility of false negativity on decalcified specimens Raul Askew MD LAB PATHOLOGY OR DERABLES Final Result [facility] ([place]) 1 [place] [address] from Last 3 Months Insurance IDPA AETNA [facility] Advance Directives For more information, please contact: [phone] * Full Code (Latest Code Status on File) Date Activated Date Inactivated Comments 11/10/2024 2:01 PM 11/11/2024 7:54 PM * Full Code Date Activated Date Inactivated Comments 09/07/2024 11:15 AM 09/07/2024 5:15 PM * Full Code Date Activated Date Inactivated Comments 09/07/2024 11:15 AM 09/07/2024 11:15 AM Care Teams Sales Account Leader Relationship Specialty Start Date End Date Michel Neff MD [address] [facility] [place] [address] PCP - General Internal Medicine 10/09/23
--- OUTSIDE RECORDS SUMMARY | 2024-12-01 16:14 | XMS_ITS | Clinical Summary ---
Author Organization [facility] Address [address] [place] [address] Care Team Providers Care Factory Hand Name Role Phone Unavailable Primary Care Provider Unavailabl e Source Comments [facility],non-owned Affiliates and Associated Physician Practices is amultiple site organization consisting of ambulatory clinics and hospital sitesin [place], [place], [place] and [place]. This disclosure is being madepursuant to the Care Everywhere program and may not contain all information available regarding this patient. 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
--- OUTSIDE RECORDS SUMMARY | 2024-12-01 16:14 | XMS_ITS | Encounter Summary ---
Author Organization [facility] Healthcare Address [address] [place] [address] Care Team Providers Care Laborer Ammunition Assembly Name Role Phone Michel Neff MD Primary Care Provider Encounter Details Date Type Department Care Team (Late st Contact Info) Description 11/29/2024 Telephone [facility] [address] 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
[2024-12-01 16:25] VITALS: BP 114/85; PULSE 118; RESP 16; TEMP 36.4; O2SAT 100
[2024-12-01 18:02] LABS: Hematocrit 39.1 % (37.0-47.0); Hemoglobin 13.4 g/dL (12.0-15.0); Immature Granulocyte Percent A 0.4 % (0-0.5); Immature Platelet Fraction Pct 6.4 % (0.9-11.2); Lymphocytes Absolute Auto 0.59 K/mm3 (0.9-3.2); Mean Corpuscular HGB Conc 34.3 g/dl (32-36); Mean Corpuscular Hemoglobin 30.4 pg (26-34); Mean Corpuscular Volume 88.7 fl (80-100); Nucleated Red Blood Cells Absolute Auto 0.000 K/mm3 (0.0-0.012); Nucleated Red Blood Cells Perc 0.0 % (0.0-0.2); Platelet Count Result 109 k/mm3 (150-375); Red Blood Count 4.41 M/mm3 (4.2-5.4); White Blood Count 7.3 K/mm3 (4.5-10.0)
[2024-12-01] MEDS: SODIUM CHLORIDE 0.9% IV 1,000 ML 999 ML IV CONT (18:06)
[2024-12-01 18:10] LABS: Albumin Level 4.2 g/dL (3.5-5.1); Alkaline Phosphatase 218 U/L (38-126); Anion Gap 12 mmol/L (4-12); Bilirubin,Total 0.6 mg/dL (0.2-1.3); Blood Urea Nitrogen 18 mg/dL (7-17); Calcium 9.4 mg/dL (8.4-10.2); Carbon Dioxide 20 mmol/L (22-30); Chloride 105 mmol/L (98-107); Estimated CRCL calculation 129 ml/min; Estimated Glomerular Filt Rate > 60; Glucose 94 mg/dL (65-110); Potassium 3.6 mmol/L (3.4-5.0); Sodium 137 mmol/L (137-145); Total Protein 7.7 g/dL (6.3-8.2)
[2024-12-01 18:13] LABS: Add Urine Microscopic? YES; Appearance Urine Turbid (Clear); Glucose Urine UA Negative (Negative); Leukocyte Esterase Ur 1+ LEU/UL (Negative); Need Manual Microscopic Reviewed; Nitrate Urine Negative (Negative); Non Pathogenic Casts >20; Specific Grav Ur 1.030 (1.001-1.035)
[2024-12-01 18:34] LABS: Alanine Aminotransferase 981 U/L (6-35)
--- OUTSIDE RECORDS SUMMARY | 2024-12-01 18:36 | XMS_ITS | Clinical Summary ---
Author Organization [facility] Address [address] [facility] [place] [address] Care Team Providers Care Logistics Research Engineer Name Role Phone Unavailable Primary Care Provider Unavailabl e Source Comments [facility],non-owned Affiliates and Associated Physician Practices is amultiple site organization consisting of ambulatory clinics and hospital sitesin [place], [place], [place] and [place]. This disclosure is being madepursuant to the Care Everywhere program and may not contain all information available regarding this patient. 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
--- OUTSIDE RECORDS SUMMARY | 2024-12-01 18:36 | XMS_ITS | Clinical Summary ---
Author Organization [facility] Address [facility] [place] [address] Care Team Providers Care Top Spotter Name Role Phone Unavailable Primary Care Provider [...]
--- OUTSIDE RECORDS SUMMARY | 2024-12-01 18:36 | XMS_ITS | Clinical Summary ---
Author Organization [facility] Address [facility] [place] [address] Care Team Providers Care Sheet Cutting Operator Name Role Phone Michel Neff MD Primary Care Provider [phone] Allergies No known active allergies Medications Invega [...] stay for the surgery. We we will personal counselor the patient to avoid for 18 [...] Type Department Care Team Description [address] [place] [address] Raul Askew MD 5 9:00 AM CDT Office Visit [address] [place] [address] Raul Askew MD Morbid obesity due to excess calories (HCC) (Primary Dx); Status post gastric surgery 5 [facility] Post Discharge Follow up phone call [facility] Surgery Care 1 [place] [address] Simona Rivera 5 10:46 AM CDT Anesthesia Event [facility] Operating Room 1 [place] [address] Amarjit Borges MD Kory, Christopher James, MD 5 10:30 AM CDT - 5 12:30 PM CDT Surgery [facility] Operating Room 1 [place] [address] Raul Askew MD LAPAROSCOPIC GASTRECTOMY - SLEEVE with hiatal hernia repair 5 6:33 AM CDT - 5 3:49 PM CDT Hospital Encounter [facility] Surgery Care 1 [place] [address] Raul Askew MD Morbid obesity (HCC) Discharge Disposition: Discharge to home or self care 5 8:30 AM CDT Office Visit [facility] [address] [place] [address] [address] [place] [address] Raul Askew MD Morbid obesity due to excess calories (HCC) (Primary Dx) 5 11:38 AM CDT - 5 11:59 PM CDT Hospital Encounter [facility] Nutrition and Diabetic Education 1 [facility] Room [address] [address] Sanchez, Nubia Roberts RD Discharge Disposition: Discharge to home or self care 5 11:20 AM CDT Office Visit [address] [place] [address] Raul Askew MD Morbid obesity due to excess calories (HCC) (Primary Dx) 5 12:25 PM CDT Anesthesia Event [address] [address] Cuauhtemoc Gaona MD 5 12:00 PM CDT - 5 12:30 PM CDT Surgery [address] [address] Raul Askew MD ESOPHAGOGASTRODUODENOSCOPY BIOPSY 5 11:00 AM CDT - 5 1:10 PM CDT Hospital Encounter [address] [address] Raul Askew MD Heartburn Discharge Disposition: Discharge to home or self care 5 10:05 AM CDT Lab [address] Morbid obesity due to excess calories (HCC) 5 9:40 AM CDT Office Visit [address] [place] [address] Raul Askew MD Morbid obesity due to excess calories (HCC) (Primary Dx) from Last 3 Months Surgical History Surgery Date Site/Laterality Comments SECTION TUBAL LIGATION CHOLECYSTECTOMY 09/28/2024 [facility] SLEEVE GASTROPLASTY 11/04/2024 Medical History Medical [...] on file 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 Gender Identity Not on file Sexual Orientation [...] 11/10/2024 1:17 PM CDT Morbid obesity (HCC) [place] AN ELECTIVE ENDOTRACHEAL AIRWAY Routine 11/10/2024 11:27 [...] LAB BLOOD ORDERA BLES Final Result [facility] ([place]) 1 [facility] Department of Laboratories [place], [place] [id number] * (ABNORMAL) CBC without differential (11/11/2024 4:05 [...] BLES Final Result [facility] ([place]) 1 [facility] [place] [address] * Phosphorus (11/11/2024 4:05 AM CDT) Phosphorus, pl 3.3 2.3 - 4.5 mg/dL [facility] ([place]) Blood 11/11/2024 4:05 AM CDT 11/11/2024 5:31 AM CDT Raul Askew MD LAB BLOOD ORDERA BLES Final Result [facility] ([place]) 1 [facility] [employer] [place] [address] * Magnesium (11/11/2024 4:05 AM CDT) Magnesium 1.8 1.4 - 2.5 mg/dL [facility] ([place]) Blood 11/11/2024 4:05 AM CDT 11/11/2024 5:31 AM CDT Raul Askew MD LAB BLOOD ORDERA BLES Final Result Performing Organization Address City/[facility] Co de Phone Number [facility]LE [facility] ([place]) 1 [facility] Department [place] [address] * (ABNORMAL) Basic metabolic panel (11/11/2024 4:05 [...] LAB BLOOD ORDERA BLES Final Result [facility] ([place]) [address] [place] [address] Department [place] [address] * Surgical pathology (11/10/2024 1:17 PM CDT) Tissue (Stomach - Subtotal / Total Resection, non-Tumor) 11/10/2024 11:12 AM CDT Comment:Placed in formalin a t time of drop off Narrative PATHOLOGY [facility] ([place]) - 11/12/2024 12:55 PM CDT EPIC results best viewed via link to PDF [facility] Department of Pathology [address] [place] [address] Note to Patients: This report may contain [...] Final Report Patient Name: MANISHA JIMÉNEZ Address: [address] [place] [address] Gender: F : 1990 (Age: 34) Service: Surgery Location: [facility] Hospital #: [id number] Patient Type: [facility] Taken: 11/10/2024 Received: 11/10/2024 Accessioned: 11/10/2024 [...] determined by the Surgical Pathology Department at [facility] as part of an ongoing quality worker program and in compliance with federally mandated [...] characteristics determined by the Surgical Pathology Department [facility]. It has not been cleared or approved by the U. S. Food and Drug Administration. Note for decalcified specimens: This assay has not been validated on decalcified tissues. Results should be interpreted with caution given the possibility of false negativity on decalcified specimens Raul Askew MD LAB PATHOLOGY OR DERABLES Final Result PATHOLOGY [facility] ([facility] 1 [place], [place] [id number] * [place] AN ELECTIVE ENDOTRACHEAL AIRWAY (11/10/2024 11:27 AM [...] LAB BLOOD ORDERA BLES Final Result [facility] ([place]) 1 [facility] Department [place] [address] [facility] * eGFR (11/10/2024 8:48 [...] ORDERA BLES Final Result Performing Organization Address [facility] Co de Phone Number [facility] ([place]) [address] [place] [address] [employer] [place] [address] * ABO/Rh (11/10/2024 8:48 AM CDT) ABO/Rh O Positive Blood 11/10/2024 8:48 AM CDT 11/10/2024 8:53 AM CDT Narrative [facility] ([place]) - 11/10/2024 9:33 AM CDT Has the patient had Daratumumab or Isatuximab in the past 6 months?->Unknown Raul Askew MD LAB BLOOD BANK T EST ORDERABLES Final Result Performing Organization Address [facility] Co de Phone Number [facility] ([place]) [address] [place] [address] * Antibody screen (11/10/2024 8:48 AM CDT) Antonio, indirect, Gel Interpretation Negative ABSC Blood 11/10/2024 8:48 AM CDT 11/10/2024 8:53 AM CDT Narrative [facility] - 11/10/2024 9:33 AM CDT Has the patient had Daratumumab or Isatuximab in the past 6 months?->Unknown Rual Askew MD LAB BLOOD BANK T EST ORDERABLES Final Result [facility] ([place]) 1 [facility] Department [place] [address] * (ABNORMAL) Basic metabolic panel (11/10/2024 8:48 [...] ([place]) Glucose 91 70 - 199 mg/dL [facility] ([place]) Comment: Interpretive Data Fasting glucose [...] 2022. Calcium 10.0 8.5 - 10.3 mg/dL [facility] ([place]) Blood 11/10/2024 8:48 AM CDT 11/10/2024 8:53 AM CDT us Raul Askew MD LAB BLOOD ORDERA BLES Final Result [facility] ([place]) 1 [facility] Department [place] [address] * EGD (09/07/2024 11:57 AM CDT) Anatomical Region Laterality Modality Other Narrative Procedure Note Raul Askew MD - 09/07/2024 11:57 AM CDT [facility] Patient Name: Manisha Jiménez Procedure Date: 09/07/2024 11:57 AM Date of : 1990 Admit Type: Outpatient Age: 34 Gender: Female Attending MD: Raul Askew M.D. Room: [facility] ENDOSCOPY ROOM 2 Note Status: [...] passed under direct vision. The Endoscope [id number] was introduced through the mouth, and advanced [...] 11:57 AM Procedure Code(s): --- Professional --- 21283, Esophagogastroduodenoscopy, flexible, transoral; with biopsy, single or multiple --- Technical --- 46265, Esophagogastroduodenoscopy, flexible, transoral; with biopsy, single or multiple Diagnosis Code(s): --- Professional --- K31.89, Other diseases of stomach and duodenum K22.89, Other specified disease of esophagus --- Technical --- K31.89, Other diseases of stomach and duodenum K22.89, Other specified disease of esophagus CPT copyright 2020 [employer]. All rights reserved. The codes documented in this report are preliminary and upon concrete wall grinder operator reviewmay be revised to meet current compliance requirements. Recognized by the [employer] for promoting quality in endoscopy Raul Askew MD ENDOSCOPY PROCED URES Final Result * Thyroid Function [place] (09/07/2024 10:11 AM CDT) TSH 0.35 0.30 - 4.20 mcIUnit/mL Blood 09/07/2024 10:1 1 AM CDT 09/07/2024 1:10 PM CDT Raul Askew MD LAB BLOOD ORDERA BLES Final Result Performing Organization Address [facility]/ZIP Co de Phone Number [facility] ([place]) [address] [place] [address] [place] [address] * Iron profile w/ IBC (09/07/2024 10:11 AM CDT) Iron 79 35 - 145 mcg/dL TIBC 312 250 - 400 mcg/dL [facility] ([place]) Transferrin saturation 25 20 - 50 % [facility] Blood 09/07/2024 10:1 1 AM CDT 09/07/2024 1:10 PM CDT Raul Askew MD LAB BLOOD ORDERA BLES Final Result Performing Organization Address City/[facility]/ZIP Co de Phone Number [facility] ([place]) 1 [facility] [place] [address] * Vitamin A (09/07/2024 10:11 AM CDT) Vitamin A 35.8 32.5 - 78.0 mcg/dL [facility] Lab Comment: ADDITIONAL INFORMATION This test was developed and its performance characteristics determined by [facility] in a manner consistent with CLIA requirements. This test has not been cleared or approved by the U.S. Food and Drug Administration. Test Performed by: [facility] - [address] [address] Mattress Weaver: Bharathi Luna Ph.D.; CLIA# [id number] Blood 09/07/2024 10:1 1 AM CDT 09/07/2024 1:10 PM CDT Raul Askew MD LAB BLOOD ORDERA BLES Final Result Performing Organization Address City/[facility]/ZIP Co de Phone Number [facility] ([place]) 1 [facility] [place] [address] [facility] * (ABNORMAL) Vitamin D 25 hydroxy (09/07/2024 10:11 AM CDT) Vitamin D 25-OH 14(L) 30 - 80 ng/mL Blood 09/07/2024 10:1 1 AM CDT 09/07/2024 1:10 PM CDT Raul Askew MD LAB BLOOD ORDERA BLES Final Result Performing Organization Address City/[facility]/ZIP Co de Phone Number [facility] ([place]) 1 [facility] [place] [address] * Vitamin B1 (09/07/2024 10:11 AM CDT) Thiamine (Vit B1) 100 70 - 180 nmol/L [facility] Comment: ADDITIONAL INFORMATION This test was developed and its performance characteristics determined by [facility] in a manner consistent with CLIA requirements. This test has not been cleared or approved by the U.S. Food and Drug Administration. Test Performed by: [facility] - [address], [place] [address] Mattress Weaver: Bharathi Luna Ph.D.; CLIA# [id number] Blood 09/07/2024 10:1 1 AM CDT 09/07/2024 1:00 PM CDT Raul Askew MD LAB BLOOD ORDERA BLES Final Result Performing Organization Address [facility] Co de Phone Number [facility] ([place]) 1 [place] [address] [facility] * Hemoglobin A1c (09/07/2024 [...] and children were not included. (Diabetes Care 31:2013-9316, 2008). The eAG is not equivalent to a fasting glucose. Blood 09/07/2024 10:1 1 AM CDT 09/07/2024 1:10 PM CDT us Raul Askew MD LAB BLOOD ORDERA BLES Final Result Performing Organization Address [facility] Co de Phone Number [facility] ([place]) 1 [place] [address] * Glucose, fasting (09/07/2024 10:11 AM CDT) Glucose, fasting 78 70 - 99 mg/dL Blood 09/07/2024 10:1 1 AM CDT 09/07/2024 1:10 PM CDT Raul Askew MD LAB BLOOD ORDERA BLES Final Result Performing Organization Address City/[facility] Co de Phone Number [facility] ([place]) 1 [facility] [place] [address] * Folate (09/07/2024 10:11 AM CDT) Pathologist [facility] Folic acid 10.3 >=5.0 ng/mL Comment:Slightly Hemolyzed S pecimen. Results may be affected. Blood 09/07/2024 10:1 1 AM CDT 09/07/2024 1:10 PM CDT Raul Askew MD LAB BLOOD ORDERA BLES Final Result [facility] ([place]) 1 [place] [address] * Ferritin (09/07/2024 10:11 AM CDT) [facility] Ferritin 90 15 - 150 ng/mL Blood 09/07/2024 10:1 1 AM CDT 09/07/2024 1:10 PM CDT Raul Askew MD LAB BLOOD ORDERA BLES Final Result [facility] ([place]) 1 [facility] [employer] [place] [address] * Vitamin B12 (09/07/2024 10:11 AM CDT) [facility] Vitamin B12 534 230 - 1,250 pg/mL Blood 09/07/2024 10:1 1 AM CDT 09/07/2024 1:10 PM CDT Raul Askew MD LAB BLOOD ORDERA BLES Final Result [facility] ([place]) 1 [facility] [place] [address] * Lipid panel (09/07/2024 10:11 AM CDT) [...] BLOOD ORDERA BLES Final Result [facility] ([place]) 1 [facility] Department [place] [address] * Surgical pathology (09/07/2024 10:01 AM CDT) Tissue (Gastric/Stomach biopsy) 09/07/2024 12:35 PM CDT Tissue specimen (specimen) ([place], Biopsy) 09/07/2024 12:36 PM CDT Narrative PATHOLOGY [facility] ([place]) - 09/10/2024 10:20 AM CDT EPIC results best viewed via link to PDF [facility] Department of Pathology [address] [place] [address] Note to Patients: This report may contain [...] Final Report Patient Name: MANISHA JIMÉNEZ Address: [address] [place] [address] Gender: F : 1990 (Age: 34) Service: Surgery Location: [facility] Hospital #: [id number] Patient Type: [facility] Taken: 09/07/2024 Received: 09/08/2024 Accessioned: 09/08/2024 Reported: [...] determined by the Surgical Pathology Department at [facility] as part of an ongoing quality worker program and in compliance with federally mandated [...] characteristics determined by the Surgical Pathology Department [facility]. It has not been cleared or approved by the U. S. Food and Drug Administration. Note for decalcified specimens: This assay has not been validated on decalcified tissues. Results should be interpreted with caution given the possibility of false negativity on decalcified specimens Raul Askew MD LAB PATHOLOGY OR DERABLES Final Result [facility]Y [facility] ([place]) 1 [place] [address] from Last 3 Months Insurance IDPA [employer] [facility] Advance Directives For more information, please contact: [phone] * Full Code (Latest Code Status on File) Date Activated Date Inactivated Comments 11/10/2024 2:01 PM 11/11/2024 7:54 PM * Full Code Date Activated Date Inactivated Comments 09/07/2024 11:15 AM 09/07/2024 5:15 PM * Full Code Date Activated Date Inactivated Comments 09/07/2024 11:15 AM 09/07/2024 11:15 AM Care Teams Sheet Cutting Operator Relationship Specialty Start Date End Date Michel Neff MD [address] [facility] [place] [address] PCP - General Internal Medicine 10/09/23
--- OUTSIDE RECORDS SUMMARY | 2024-12-01 18:36 | XMS_ITS | Encounter Summary ---
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
[2024-12-01 18:53] LABS: Aspartate Amino Transferase 2613 U/L (14-36)
--- NOTE | 2024-12-01 19:24 | PC.NURSE ---
Received report ANKIT Berkowitz for cont. of care. Pt lying on stretcher, respirations even and unlabored. Pt c/o 01/21 lower back pain radiating to neck, pt being taken to CT on stretcher.
[2024-12-01 19:38] VITALS: BP 113/70; PULSE 108; RESP 18; TEMP 36.8; O2SAT 100
--- NOTE | 2024-12-01 20:04 | ED.GENADULT ---
HPI - General Adult General Chief complaint: Back Pain/Injury Stated complaint: Constipation x 5 days, herniated Lumbar disc Time Seen by Provider: 12/01/24 16:55 Source: patient Mode of arrival: wheelchair Limitations: no limitations History of Present Illness HPI narrative: 34-year-old here with a complains of back pain for last several days had an MRI done yesterday showed L3-L4 mild disc herniation. she states that she has not been feeling well for quite some time , she states he spoke to her PMD who recommended her to go to ER .She denes any fever , CP or abdominal pain ,hurts all over .pt states she also has dark urine and constipated. Onset (ago): week(s) Severity: moderate Quality: aching Pain Consistency: constant Relieving factors: none Exacerbating factors: none Associated symptoms: denies other symptoms Related Data Home Medications ?Medication ?Instructions ?Recorded ?Confirmed ?Last Taken ?Type paroxetine HCl 40 mg tablet 40 mg PO DAILY PRN anxiety 09/26/24 10/12/24 Unknown History topiramate 100 mg tablet 100 mg PO DAILY 09/26/24 11/26/24 11/26/24 History trazodone 50 mg tablet 50 mg PO HS PRN insomnia 09/26/24 11/26/24 11/25/24 History Allergies Allergy/AdvReac Type Severity Reaction Status Date / Time No Known Allergies Allergy Verified 12/01/24 16:12 Review of Systems Review of Systems: All systems reviewed & are unremarkable except as noted in HPI and below Constitutional: Constitutional: Reports no additional constitutional complaints Eyes: Eyes: Reports no additional eye complaints ENT: Reports system reviewed and no additional complaints, except as documented Cardiovascular: Cardiovascular: Reports no additional cardiovascular complaints Respiratory: Respiratory: Reports no additional respiratory complaints Gastrointestinal: Gastrointestinal: Reports no additional gastrointestinal complaints Genitourinary: Genitourinary: Reports as per HPI Musculoskeletal: Musculoskeletal: Reports as per HPI Neurologic: Reports system reviewed and no additional complaints, except as documented PMFSH Past Medical History Medical History Head lice Schizophrenia Bipolar affective disorder Surgical History Surgical History Hx laparoscopic cholecystectomy 09/28/[address] Rodriguez History of History of tubal ligation Family History Family History Father Diabetes mellitus Mother Cancer of stomach Other Patient's mother is Social History Social History Smoking status: Never smoker Alcohol intake: never Substance use: never Substance use type: does not use Do You Feel Safe in your Home?: Yes Lack of Transportation: No Lack of Food: Never True Current Housing: I Have Housing Concerned About Future Housing: No Difficulty Paying Gas/Electric Bills: No Difficulty Paying for Meds: No Currently Unemployed: No Education: High School Diploma/GED Difficulty w/ Childcare or Family Care: No Living arrangements: with family Gender identity (if verbalized by the patient): Female Sexual Orientation (if Verbalized by the Patient): Straight or Heterosexual Spiritual care concerns: No Exam Narrative: GENERAL: Well-appearing, well-nourished, and in no acute distress. HEAD: Normocephalic, atraumatic.has lice crawling on her shirt EYES: PERRLA and EOMI. ENT: Nares clear, no rhinorrhea or epistaxis. Mucous membranes moist. NECK: Supple. CHEST: Clear to auscultation. No respiratory distress. HEART: Regular rate and rhythm. No murmur heard. Normal peripheral pulses. ABDOMEN: Soft, nontender, nondistended, normal active bowel sounds. EXTREMITIES: Normal range of motion. No edema. SKIN: Warm, dry, no rash. NEURO: No focal deficits. Alert and oriented x3. PSYCH: Normal mood and affect. Course Course Emergency Course: pt resting on the bed on her phone ,informed her about her lab and CT findings , will admit to the hospital for elevated LFT .I discussed with Dr. Maloney Vital Signs Vital signs: Vital Signs Temperature 36.4 C 12/01/24 16:25 Pulse Rate 118 H 12/01/24 16:25 Respiratory Rate 16 12/01/24 16:25 Blood Pressure 114/85 12/01/24 16:25 Pulse Oximetry 100 12/01/24 16:25 Oxygen Delivery Room Air 12/01/24 16:25 Temperature 36.8 C 12/01/24 19:38 Pulse Rate 108 H 12/01/24 19:38 Respiratory Rate 18 12/01/24 19:38 Blood Pressure 113/70 12/01/24 19:38 Pulse Oximetry 100 12/01/24 19:38 Oxygen Delivery Room Air 12/01/24 16:25 Medical Decision Making Differential Diagnosis Differential Diagnosis: uti kidney stone, vaginal bleeding. Medical Records Medical records reviewed: Yes I reviewed the external patient's medical records. Vital Signs Vital Signs: Vital Signs Temperature 36.4 C 12/01/24 16:25 Pulse Rate 118 H 12/01/24 16:25 Respiratory Rate 16 12/01/24 16:25 Blood Pressure 114/85 12/01/24 16:25 Pulse Oximetry 100 12/01/24 16:25 Oxygen Delivery Room Air 12/01/24 16:25 Temperature 36.8 C 12/01/24 19:38 Pulse Rate 108 H 12/01/24 19:38 Respiratory Rate 18 12/01/24 19:38 Blood Pressure 113/70 12/01/24 19:38 Pulse Oximetry 100 12/01/24 19:38 Oxygen Delivery Room Air 12/01/24 16:25 Lab Data Lab results reviewed: Yes I reviewed the patient's lab results. 12/01/24 17:53 12/01/24 17:53 Labs: Lab Results 12/01/24 Range/Units 17:53 WBC 7.3 (4.5-10.0) K/mm3 RBC 4.41 (4.2-5.4) M/mm3 Hgb 13.4 (12.0-15.0) g/dL Hct 39.1 (37.0-47.0) % MCV 88.7 (80-100) fl MCH 30.4 (26-34) pg MCHC 34.3 (32-36) g/dl RDW 12.5 (11.5-14.5) % Plt Count 109 L (150-375) k/mm3 MPV 12.1 H (7.4-10.4) fl Immature Gran % (Auto) 0.4 (0-0.5) % Neut % (Auto) 85.6 H (45.5-73.1) % Lymph % (Auto) 8.1 L (18.3-44.2) % Chambers % (Auto) 4.3 (2.6-8.5) % Eos % (Auto) 1.5 (0-4.4) % Baso % (Auto) 0.1 L (0.2-1.2) % Lymph # (Auto) 0.59 L (0.9-3.2) K/mm3 Chambers # (Auto) 0.3 (0.1-0.6) K/mm3 Eos # (Auto) 0.1 (0-0.3) K/mm3 Baso # (Auto) 0.0 (0.0-0.1) K/mm3 Abs Immat Gran (auto) 0.03 (0.00-0.031) K/mm3 Absolute Neuts (auto) 6.2 (1.3-6.7) K/mm3 Absolute Nucleated RBC 0.000 (0.0-0.012) K/mm3 Nucleated RBC % 0.0 (0.0-0.2) % % Immature Plt Fraction 6.4 (0.9-11.2) % Sodium 137 (137-145) mmol/L Potassium 3.6 (3.4-5.0) mmol/L Chloride 105 (98-107) mmol/L Carbon Dioxide 20 L (22-30) mmol/L Anion Gap 12 (4-12) mmol/L BUN 18 H (7-17) mg/dL Creatinine 0.51 L (0.7-1.0) mg/dL Estim Creat Clear Calc 129 ml/min Estimated GFR > 60 (59 - ) Glucose 94 (65-110) mg/dL Calcium 9.4 (8.4-10.2) mg/dL Total Bilirubin 0.6 (0.2-1.3) mg/dL AST 2613 H (14-36) U/L ALT 981 H (6-35) U/L Alkaline Phosphatase 218 H (38-126) U/L Total Protein 7.7 (6.3-8.2) g/dL Albumin 4.2 (3.5-5.1) g/dL Urine Color [place] H (Yellow) Urine Appearance Turbid H (Clear) Urine pH 6.5 (5.0-9.0) Ur Specific [place] 1.030 (1.001-1.035) Urine Protein 2+ H (Negative) mg/dL Urine Glucose (UA) Negative (Negative) mg/dL Urine Ketones 3+ H (Negative) mg/dL Ur Blood (Man) 2+ H (Negative) Urine Nitrate Negative (Negative) Urine Bilirubin 2+ H (Negative) Urine Urobilinogen 1.0 (<2.0) mg/dL Add Ur Microanalysis Reviewed Leukocyte Esterase Rfl 1+ H (Negative) LALITO/UL Urine RBC >100 H (0-2) /hpf Urine WBC 6-10 H (0-3) /hpf Ur Squamous Epith Cells Moderate (Few) /hpf Calcium Oxalate Crystal Present (None) /hpf Amorphous Sediment Moderate H (None) Urine Bacteria 1+ H /hpf Urine Casts >20 Imaging Data Radiologist's impression: ITS Impressions Abdomen/Pelvis CT 12/01/24 19:29 IMPRESSION: 1. No acute abdominal abnormality. Discharge Plan Discharge Clinical Impression: Head lice, High liver transaminase level Hematuria Qualifiers: Hematuria type: unspecified type Qualified Code(s): R31.9 - Hematuria, unspecified Patient Disposition: Home Condition: Stable Instructions: Hematuria (ED), Back Pain (ED) Patient Language: Croatian Prescriptions: No Action meloxicam 15 mg tablet 15 mg PO DAILY Qty: 15 0RF trazodone 50 mg tablet 50 mg PO HS PRN (Reason: insomnia) paroxetine HCl 40 mg tablet 40 mg PO DAILY PRN (Reason: anxiety) topiramate 100 mg tablet 100 mg PO DAILY acetaminophen [Acetaminophen Extra Strength] 500 mg tablet 1,000 mg PO .q8 PRN (Reason: fever or pain) Qty: 60 0RF ibuprofen 800 mg tablet 800 mg PO TID PRN (Reason: pain (scale score 4-6)) Qty: 60 0RF cyclobenzaprine 10 mg tablet 10 mg PO HS PRN (Reason: muscle spasm) Qty: 30 0RF oxycodone-acetaminophen [Percocet] 5-325 mg tablet 1 tablet PO Q6H PRN (Reason: pain) Qty: 12 0RF Follow-up/Referrals: Michel Neff MD [Primary Care Provider, Hospitalist] Time of Disposition: 20:49
[2024-12-01] MEDS: fentaNYL CITRATE INJ (*CRX) 100 MCG/2 ML VIAL 50 MCG IV PUSH (20:28)
[2024-12-01 20:59] LABS: Acetaminophen < 10 ug/mL (10-30)
--- NOTE | 2024-12-01 21:43 | P.HP_ITS ---
H&P: HPI History of Present Illness Date/Time: 12/01/24 21:43 Chief Complaint: Back pain, constipation and dark urine for the past five days. Narrative: This is a 34-year-old female patient with history of schizophrenia, bipolar affective disorder, gastric sleeve placement one month ago at [facility] and chronic back pain present to the emergency room for the 2nd time in 5 days with persistent chronic back pain, reporting no bowel movement for 1 week and dark appearing urine. Patient tells me that she had gastric sleeve performed at [facility] on November 10 and since has had back pain and pain has started radiating to all of her extremities over the course of past 5 days. Patient had outpatient MRI performed yesterday that shows multiple levels of bulging discs. There is no central cord compression. Patient also had recent lap choly performed here on September 28, [address] Rodriguez. She denies any nauseousness vomiting diarrhea but reports she just has the persistent back pain with dark urine today and constipation. In the emergency room workup is performed it shows CBC with no leukocytosis at 7.3, preserved H&H at 13.4 and 39.1 as well as platelets of 109. Metabolic panel unremarkable with regards to electrolytes as sodium is 137, potassium 3.6, chloride 105, CO2 20 in renal function 0.5/18 with glucose 94. Weight is abnormal for patient today is her AST of 2613 with her baseline being 30-60, ALT of 981 with baseline 60-80, and alk-phos at 2:18 a.m. with her baseline being 80-100. Her bilirubin is noted to be normal 0.6. Urinalysis showing orange, turbid urine with 2+ protein, 3+ ketones and 2+ blood as well as 2+ bilirubin and 1+ leuk esterase. WBCs are 6-10 with 1+ bacteria and greater than 100 wbc's but there is moderate epithelials. Patient's hepatitis panel is pending, Tylenol level is less than 10 and her test is negative. CT abdomen pelvis was performed in the emergency room without contrast that shows no acute abdominal abnormality. VSS. GI has been consulted and will follow her tomorrow. She is being admitted in the current setting for further evaluation and management. It is noted that pt has visible lice in her hairline and noted on her clothing while in the ER. Review of Systems Review of Systems: All systems reviewed & are unremarkable except as noted in HPI and below PMFSH Past Medical History Medical History (Updated 12/01/24 @ 22:12 by DION Brower) Constipation Chronic pain Head lice Schizophrenia Bipolar affective disorder Surgical History Surgical History Hx laparoscopic cholecystectomy 09/28/[address] Rodriguez History of History of tubal ligation Family History Family History Father Diabetes mellitus Mother Cancer of stomach Other Patient's mother is Social History Social History Smoking status: Never smoker Alcohol intake: never Substance use: never Substance use type: does not use Do You Feel Safe in your Home?: Yes Lack of Transportation: No Lack of Food: Never True Current Housing: I Have Housing Concerned About Future Housing: No Difficulty Paying Gas/Electric Bills: No Difficulty Paying for Meds: No Currently Unemployed: No Education: High School Diploma/GED Difficulty w/ Childcare or Family Care: No Living arrangements: with family Gender identity (if verbalized by the patient): Female Sexual Orientation (if Verbalized by the Patient): Straight or Heterosexual Spiritual care concerns: No Meds Home Medications and Allergies Home Medications ?Medication ?Instructions ?Recorded ?Confirmed ?Type meloxicam 15 mg tablet 15 mg PO DAILY #15 tabs 04/0 10/0611/26/24 Rx acetaminophen 500 mg tablet 1,000 mg (2 x 500 mg) PO . q8 PRN 09/23/24 10/12/24 Rx (Acetaminophen Extra Strength) fever or pain #60 tabs ibuprofen 800 mg tablet 800 mg PO TID PRN pain (scal e 09/23/24 10/12/24 Rx score 4-6) #60 tabs paroxetine HCl 40 mg tablet 40 mg PO DAILY PRN anxiety 09/26/24 10/12/24 History topiramate 100 mg tablet 100 mg PO DAILY 09/26/24 History trazodone 50 mg tablet 50 mg PO HS PRN insomnia 11/26/24 History oxycodone-acetaminophen 5 mg-325 1 tablet PO Q6H PRN p ain #12 tabs 10/01/24 10/12/24 Rx mg tablet (Percocet) cyclobenzaprine 10 mg tablet 10 mg PO HS PRN muscle sp asm #30 11/26/24 Rx tabs Allergies Allergy/AdvReac Type Severity Reaction Status Date / Time No Known Allergies Allergy Verified 12/01/24 16:12 Vital Signs Vital Signs - 24 hr 12/01/24 16:25 12/01/24 19:38 Temperature 97.6 F 98.2 F Pulse Rate 118 H 108 H Respiratory Rate 16 18 Blood Pressure 114/85 113/70 Pulse Oximetry 100 100 Oxygen Delivery Room Air Exam Const: General: uncomfortable Other: Morbidly obese female pt lying supine at this time in the stretcher. HENMT: Face/Nose/Sinus: Normal nares present Mouth: Yes moist mucous membranes Eyes: General: appearance normal, both eyes and all related structures EOM: EOMs intact bilaterally Neck: Neck: supple and no JVD Lymphatic: lymphadenopathy not noted Resp: Effort & Inspection: normal respiratory effort Auscultation: clear to auscultation bilaterally Cardio: Rate: regular rate Rhythm: regular rhythm Heart sounds: no gallops, no murmurs and no rubs GI: GI Palp: Yes Soft to palpation, No Tenderness to palpation present (GI), No Guarding due to palpation present (GI) and No Hernia present Auscultation: normal bowel sounds Other: Abdomen has well healed lap sites on anterior abdomen with some mild bruising. Skin: General skin exam: normal color Lesions: no lesions noted Rashes: no rashes noted Wounds: no wounds Other: There is noted lice on pt's scalp and on hair as well as clothing. Neuro: Speech: normal speech Motor exam (neuro): 5/5 motor strength present throughout and Normal motor muscle tone present throughout Sensory Exam: normal sensation Extrem: General: normal to inspection, no edema and no pedal edema Other: Freely and equally MAEW without deficit. Psych: Mental Status: mental status grossly normal Affect: normal affect H&P: Results Labs Labs: Short CBC 12/01/24 Range/Units 17:53 WBC 7.3 (4.5-10.0) K/mm3 Hgb 13.4 (12.0-15.0) g/dL Hct 39.1 (37.0-47.0) % Plt Count 109 L (150-375) k/mm3 BMP 12/01/24 17:53 Sodium 137 Potassium 3.6 Chloride 105 Carbon Dioxide 20 L BUN 18 H Creatinine 0.51 L Glucose 94 Calcium 9.4 Liver Function 12/01/24 Range/Units 17:53 Total Bilirubin 0.6 (0.2-1.3) mg/dL AST 2613 H (14-36) U/L ALT 981 H (6-35) U/L Alkaline Phosphatase 218 H (38-126) U/L Albumin 4.2 (3.5-5.1) g/dL Urine 12/01/24 Range/Units 17:53 Urine Color [place] H (Yellow) Urine Appearance Turbid H (Clear) Urine pH 6.5 (5.0-9.0) Ur Specific [place] 1.030 (1.001-1.035) Urine Protein 2+ H (Negative) mg/dL Urine Glucose (UA) Negative (Negative) mg/dL Assessment and Plan Assessment and plan (1) High liver transaminase level: Code(s): R74.01 - Elevation of levels of liver transaminase levels Status: Acute Assessment and Plan: * AST/ALT/Alk Phos: 2613/981/213 Baselines for these 3 are 30-60/60-80/80-150. * Hepatitis panel pending. * Normal Bilirubin. * Sequela of recent Gastric sleeve? * Consult GI - Dr. Maloney * CT Abd and pelvis negative for any acute findings and is independently reviewed by this provider. * Clear liquids only then NPO at ND for US. * Obtain RUQ US * Will defer possible MRCP to GI. (2) H/O abdominal surgery: Code(s): Z98.890 - Other specified postprocedural states Status: Acute Assessment and Plan: * Cholecystectomy in 09/[address] Rodriguez * Gastric sleeve in October 2024 at [facility]. (3) Constipation: Code(s): K59.00 - Constipation, unspecified Status: Acute Assessment and Plan: * CT without evidence of obstruction. * Miralax daily ordered. (4) Head lice: Code(s): B85.0 - Pediculosis due to Pediculus humanus capitis Status: Acute Assessment and Plan: * Permethrin ordered * Contact Isolation (5) Chronic pain: Code(s): G89.29 - Other chronic pain Status: Chronic Assessment and Plan: * Secondary to chronic back pain. * MRI performed yesterday with multi-level bulging discs and no central cord compression. * Oxycodone 5/325 po Q4 hrs prn ordered. * Fall precautions (6) Bipolar affective disorder: Code(s): F31.9 - Bipolar disorder, unspecified Status: Chronic Assessment and Plan: * Continue home meds when they are confirmed and verified. Quality VTE Prophylaxis VTE prophylaxis: mechanical ordered Hospitalist MIPS Advance Care Plan I have confirmed that the patient's Advanced Care Plan is present, code status is documented, or surrogate decision maker is listed in patient medical record.: Yes Medication Reconciliation I have utilized all available resources to obtain, update and review the patients current medications (includes all prescriptions, OTC, herbals, cannabis, and nutritional supplements).: Yes
[2024-12-01 21:52] LABS: Hepatitis B Surface Antigen Negative (Negative)
[2024-12-01 21:57] LABS: HAV RESULT Negative (Negative); Hepatitis B Core IgM Result Negative (Negative)
[2024-12-01] MEDS: SODIUM CHLORIDE 0.9% IV 1,000 ML 125 ML IV CONT (22:03)
[2024-12-01 22:26] LABS: INR 1.1; Prothrombin Time 14.4 Seconds (11.1-14.7)
[2024-12-01 22:27] LABS: Partial Thromboplastin Time 32.2 Seconds (22.3-36.8)
--- NOTE | 2024-12-01 22:55 | PC.NURSE ---
pt placed in hospital gown. Pt belongings placed in x2 plastic bags.
[2024-12-01] MEDS: PERMETHRIN 5% CREAM 60 GM TUBE 1 APPLIC TOPICAL (22:59)
[2024-12-02] VITALS: BP 117/67; PULSE 126; RESP 18; TEMP 36.4; O2SAT 99
--- NOTE | 2024-12-02 00:06 | ADMGEN ---
This patient, Manisha Lundy, was admitted to [facility] Surg Room 326-01. Patient/family oriented to hospital policies and general routines including ID bracelet, bed and alarms, visiting hours, pain management, procedures, bathroom and other care routines, personal items, smoking policy, room service/diet, and visiting hours. Information on how to activate the Rapid Response Team has been discussed. Patient/Family are encouraged to report perceived risks to care and to ask questions if they do not understand what they are told or what they should do.
[2024-12-02] MEDS: oxyCODONE/ACETAMINOPHEN (*CRX) 5-325 MG TABLET 1 TABLET PO ×4 (00:16→21:13)
[2024-12-02] MEDS: SODIUM CHLORIDE 0.9% IV 1,000 ML 125 ML IV CONT ×2 (00:16→09:55)
[2024-12-02] MEDS: PERMETHRIN 1% LIQUID 59 ML BOTTLE 1 APPLIC TOPICAL (02:00)
[2024-12-02 04:00] VITALS: BP 104/64; PULSE 85; RESP 18; TEMP 36.2; O2SAT 97
[2024-12-02 06:14] LABS: Hematocrit 33.7 % (37.0-47.0); Hemoglobin 11.1 g/dL (12.0-15.0); Immature Granulocyte Percent A 0.3 % (0-0.5); Lymphocytes Absolute Auto 0.82 K/mm3 (0.9-3.2); Mean Corpuscular HGB Conc 32.9 g/dl (32-36); Mean Corpuscular Hemoglobin 30.2 pg (26-34); Mean Corpuscular Volume 91.8 fl (80-100); Nucleated Red Blood Cells Absolute Auto 0.000 K/mm3 (0.0-0.012); Nucleated Red Blood Cells Perc 0.0 % (0.0-0.2); Platelet Count Result 103 k/mm3 (150-375); Red Blood Count 3.67 M/mm3 (4.2-5.4); White Blood Count 5.7 K/mm3 (4.5-10.0)
[2024-12-02 06:40] LABS: Albumin Level 3.4 g/dL (3.5-5.1); Alkaline Phosphatase 174 U/L (38-126); Anion Gap 9 mmol/L (4-12); Bilirubin,Total 0.6 mg/dL (0.2-1.3); Blood Urea Nitrogen 14 mg/dL (7-17); Calcium 9.0 mg/dL (8.4-10.2); Carbon Dioxide 21 mmol/L (22-30); Chloride 106 mmol/L (98-107); Estimated CRCL calculation 129 ml/min; Estimated Glomerular Filt Rate > 60; Glucose 75 mg/dL (65-110); Potassium 3.5 mmol/L (3.4-5.0); Sodium 136 mmol/L (137-145); Total Protein 6.3 g/dL (6.3-8.2)
[2024-12-02 06:59] LABS: Alanine Aminotransferase 902 U/L (6-35)
--- NOTE | 2024-12-02 07:15 | P.PNIM_ITS ---
Progress Note: A&P Assessment and Plan (1) Rhabdomyolysis: Code(s): M62.82 - Rhabdomyolysis Status: Acute Assessment and Plan: Denies recent trauma, immobility, medication changes, seizure history, drug use Possibly related to vitamin deficiencies from gastric sleeve, checking thiamine, b12, folic and vitamin d Possibly related to Topamax - CK > [address] - Bili WNL. LFTs significantly elevated with AST 2264, ALT 902, and alk phos 174 on am labs - Renal function and electrolytes WNL - UDS ordered - Urine concerning for hematuria, however some discoloration potentially related to myoglobin. Myoglobin urine ordered. - IV fluids: 200 ml/hr NS (2) High liver transaminase level: Code(s): R74.01 - Elevation of levels of liver transaminase levels Status: Acute Assessment and Plan: * Normal Bilirubin. AST/ALT/Alk Phos: 2613/981/213 on admission. Baselines for these are 30-60/60-80/80-150. Remains significantly elevated on am labs, likely related to patients rhabdomyolysis * Denies recent travel * Hepatitis panel negative * CT Abd and pelvis negative for any acute findings * Abdomen US showed fatty infiltration of an enlarged liver, portal vein is patent, demonstrating hepatopedal flow. * Consult GI DDX: acute viral etiology vs muscle injury vs autoimmune hepatitis vs hepatic vein thrombosis less likely shock liver Labs ordered to rule out acute viral cause, autoimmune etiology or muscle injury MRI ordered to rule out hepatic vein thrombosis (3) Abnormal finding on urinalysis: Code(s): R82.90 - Unspecified abnormal findings in urine Status: Acute Assessment and Plan: UA with turbid appearance, 2+ protein, 3+ ketones, 2+ blood and greater than 100 RBC Denies UTI symptoms including burning sensation, dysuria, urgency/frequency Hematuria started on 12/02, denies associated clots Possible underlying kidney disease given history of hematuria and proteinuria in the past May consider a nephrology consult or have patient obtain an outpatient UA to reassess (4) H/O abdominal surgery: Code(s): Z98.890 - Other specified postprocedural states Status: Acute Assessment and Plan: * Cholecystectomy in 09/[address] Rodriguez * Gastric sleeve in October 2024 at [facility]. (5) Constipation: Code(s): K59.00 - Constipation, unspecified Status: Acute Assessment and Plan: * CT without evidence of obstruction. * Miralax daily ordered. (6) Head lice: Code(s): B85.0 - Pediculosis due to Pediculus humanus capitis Status: Acute Assessment and Plan: * Permethrin ordered * Contact Isolation (7) Chronic pain: Code(s): G89.29 - Other chronic pain Status: Chronic Assessment and Plan: * Secondary to chronic back pain. * MRI performed yesterday with multi-level bulging discs and no central cord compression. * Oxycodone 5/325 po Q4 hrs prn ordered. * Fall precautions (8) Bipolar affective disorder: Code(s): F31.9 - Bipolar disorder, unspecified Status: Chronic Assessment and Plan: * Continue home meds Time Spent With Patient Time with patient: Greater than 35 minutes Subjective Date/time seen: 12/02/24 07:15 Interval history: 34-year-old female patient with history of schizophrenia, bipolar affective disorder, gastric sleeve placement on November 10 at [facility] and chronic back pain presented to the emergency room for the 2nd time in 5 days with persistent chronic back pain, reporting no bowel movement for 1 week and dark appearing urine. Patient is pleasant lying comfortably in bed. She is noted to have severe rhabdomyolysis on labs. She denies recent trauma, immobility, medication changes, seizure history, drug use. She denies any muscle aches/pains. She notes hematuria however possibly myoglobin contributing. She has no other complaints denying chest pain, palpitations, shortness of breath, nausea/vomiting, abdominal pain. Patient was noted to have urinary retention on bladder scan, taken to the restroom and voiding completely. Review of Systems Review of Systems: All systems reviewed & are unremarkable except as noted in HPI and below Exam Narrative: AF HR 100 RR 19 SpO2 98 BP 105/54 General: female in no acute respiratory distress who is nontoxic appearing, lying semi recumbent in bed. HEENT: Normocephalic. Atraumatic. Extraocular movement intact. Sclera clear and anicteric. No facial asymmetry. Chest: Lungs are clear to auscultation bilaterally. No wheezes or crackles. CV: Heart was regular rate and rhythm. Abd: Abdomen was soft. Nontender. Nondistended. Positive bowel sounds. Ext: No clubbing, cyanosis, or edema. DP pulses bilaterally. Neuro: Patient is alert and oriented x4.Speech is clear. Objective Data Vital Signs Vital Signs: Vital Signs - 24 hr 12/01/24 16:25 12/01/24 19:38 12/02/24 00:00 Temperature 97.6 F 98.2 F 97.5 F L Pulse Rate 118 H 108 H 126 H Respiratory Rate 16 18 18 Blood Pressure 114/85 113/70 117/67 Pulse Oximetry 100 100 99 Oxygen Delivery Room Air 12/02/24 04:00 Temperature 97.1 F L Pulse Rate 85 Respiratory Rate 18 Blood Pressure 104/64 Pulse Oximetry 97 Oxygen Delivery Intake/Output Intake/Output: Intake & Output 11/29/24 11/30/24 12/01/24 12/02/24 23:59 23:59 23:59 23:59 Intake Total 1000 277.1 Balance 1000 277.1 Meds/Results Medications: Active Medications Generic Name Dose Route Start Last Admin Trade Name Freq PRN Reason Stop Dose Admin Fentanyl Citrate 50 mcg 12/01/24 20:50 Fentanyl Citrate Inj (*Crx) 100 Mcg/2 Ml Vial IV PUSH Q2H PRN Pain Rated 7-10 Sodium Chloride 1,000 mls @ 125 mls/hr 12/01/24 20:50 12/02/24 00:16 Normal Saline Iv IV CONT 125 mls/hr .Q8H FLORENTINO Administration Ondansetron HCl 4 mg 12/01/24 20:50 Ondansetron Inj 4 Mg/2 Ml Vial IV PUSH Q4H PRN Nausea Oxycodone/Acetaminophen 1 tablet 12/01/24 22:03 12/02/24 00:16 Oxycodone/Acetaminophen (*Crx) 5-325 Mg Tablet PO 1 tablet Q4H PRN Administration Pain Rated 7-10 Polyethylene Glycol 17 gm 12/02/24 09:00 Polyethylene Glycol 3350 17 Gm Powd.Pack PO QAM FLORENTINO Trazodone HCl 50 mg 12/02/24 01:03 12/02/24 01:10 Trazodone Hcl 50 Mg Tablet PO 50 mg HS PRN Administration Insomnia Radiology Results: ITS Impressions Abdomen/Pelvis CT 12/01/24 19:29 IMPRESSION: 1. No acute abdominal abnormality. Abdomen Ultrasound 12/01/24 22:57 IMPRESSION: Limited evaluation of the pancreas secondary to overlying bowel gas Fatty infiltration of an enlarged liver. While the liver is increased in size, it has decreased in size from previous examination performed 09/26/2024. Labs Labs: Laboratory Results - last 24 hr 12/01/24 12/01/24 12/01/24 17:53 20:39 22:07 WBC 7.3 RBC 4.41 Hgb 13.4 Hct 39.1 MCV 88.7 MCH 30.4 MCHC 34.3 RDW 12.5 Plt Count 109 L MPV 12.1 H Immature Gran % (Auto) 0.4 Neut % (Auto) 85.6 H Lymph % (Auto) 8.1 L [place] % (Auto) 4.3 Eos % (Auto) 1.5 Baso % (Auto) 0.1 L Lymph # (Auto) 0.59 L [place] # (Auto) 0.3 Eos # (Auto) 0.1 Baso # (Auto) 0.0 Abs Immat Gran (auto) 0.03 Absolute Neuts (auto) 6.2 Absolute Nucleated RBC 0.000 Nucleated RBC % 0.0 % Immature Plt Fraction 6.4 PT 14.4 INR 1.1 APTT 32.2 Sodium 137 Potassium 3.6 Chloride 105 Carbon Dioxide 20 L Anion Gap 12 BUN 18 H Creatinine 0.51 L Estim Creat Clear Calc 129 Estimated GFR > 60 Glucose 94 Calcium 9.4 Total Bilirubin 0.6 AST 2613 H ALT 981 H Alkaline Phosphatase 218 H Total Protein 7.7 Albumin 4.2 Urine Color [place] H Urine Appearance Turbid H Urine pH 6.5 Ur Specific [place] 1.030 Urine Protein 2+ H Urine Glucose (UA) Negative Urine Ketones 3+ H Ur Blood (Man) 2+ H Urine Nitrate Negative Urine Bilirubin 2+ H Urine Urobilinogen 1.0 Add Ur Microanalysis Reviewed Leukocyte Esterase Rfl 1+ H Urine RBC >100 H Urine WBC 6-10 H Ur Squamous Epith Cells Moderate Calcium Oxalate Crystal Present Amorphous Sediment Moderate H Urine Bacteria 1+ H Urine Casts >20 Acetaminophen < 10 L Hepatitis A IgM Ab Negative Hep Bs Antigen Negative Hep B Core IgM Ab Negative Hepatitis C Ab Screen Negative 12/02/24 05:54 WBC 5.7 RBC 3.67 L Hgb 11.1 L Hct 33.7 L MCV 91.8 MCH 30.2 MCHC 32.9 RDW 12.6 Plt Count 103 L MPV 12.1 H Immature Gran % (Auto) 0.3 Neut % (Auto) 78.2 H Lymph % (Auto) 14.3 L [place] % (Auto) 5.4 Eos % (Auto) 1.6 Baso % (Auto) 0.2 Lymph # (Auto) 0.82 L [place] # (Auto) 0.3 Eos # (Auto) 0.1 Baso # (Auto) 0.0 Abs Immat Gran (auto) 0.02 Absolute Neuts (auto) 4.5 Absolute Nucleated RBC 0.000 Nucleated RBC % 0.0 % Immature Plt Fraction PT INR APTT Sodium 136 L Potassium 3.5 Chloride 106 Carbon Dioxide 21 L Anion Gap 9 BUN 14 Creatinine 0.51 L Estim Creat Clear Calc 129 Estimated GFR > 60 Glucose 75 Calcium 9.0 Total Bilirubin 0.6 AST ALT 902 H Alkaline Phosphatase 174 H Total Protein 6.3 Albumin 3.4 L Urine Color Urine Appearance Urine pH Ur Specific [place] Urine Protein Urine Glucose (UA) Urine Ketones Ur Blood (Man) Urine Nitrate Urine Bilirubin Urine Urobilinogen Add Ur Microanalysis Leukocyte Esterase Rfl Urine RBC Urine WBC Ur Squamous Epith Cells Calcium Oxalate Crystal Amorphous Sediment Urine Bacteria Urine Casts Acetaminophen Hepatitis A IgM Ab Hep Bs Antigen Hep B Core IgM Ab Hepatitis C Ab Screen Quality VTE Prophylaxis VTE prophylaxis: mechanical ordered
[2024-12-02 07:23] LABS: Aspartate Amino Transferase 2264 U/L (14-36)
--- NOTE | 2024-12-02 08:12 | P.CONGI_ITS ---
Assessment and Plan Assessment and plan (1) Elevated LFTs: Code(s): R79.89 - Other specified abnormal findings of blood chemistry Status: Acute (2) Hepatic steatosis: Code(s): K76.0 - Fatty (change of) liver, not elsewhere classified Status: Acute (3) Normocytic anemia: Code(s): D64.9 - Anemia, unspecified Status: Acute (4) Thrombocytopenia: Code(s): D69.6 - Thrombocytopenia, unspecified Status: Acute (5) Hematuria: Qualifiers: Hematuria type: unspecified type Qualified Code(s): R31.9 - Hematuria, unspecified Code(s): R31.9 - Hematuria, unspecified Status: Acute Plan 1. Elevated LFT's/hepatic steatosis/hepatomegaly: Ultrasound showed Fatty infiltration of an enlarged liver. While the liver is increased in size, it has decreased in size from previous examination performed 09/26/2024. Patient denies any recent illness, new medications, supplement or herbal use, recent ABX use, excessive Tylenol use. She is a non drinker. Labs on 10/01/2024: Total bilirubin 0.2, AST 38, ALT 66, Alkaline Phos 106, albumin 3.2 Labs today showed total bilirubin 0.6, AST 2264, ALT 902, Alkaline Phos 174, albumin 3.4. no current of Hx of jaundice or scleral icterus. Denies ill contacts or recent travel. Recent cholecystectomy performed September of 2024 and gastric sleeve performed last month. HIDA scan 09/29/2024 following cholecystectomy he has showed no bile leak. DDX: Acute viral etiology versus muscle injury versus autoimmune hepatitis versus hepatic vein thrombosis less likely shock liver * Labs ordered to rule out acute viral cause, autoimmune etiology or muscle injury * MRI ordered to rule out hepatic vein thrombosis * further recommendations to follow work up 2. Anemia/thrombocytopenia/hematuria: H/H normal on admission and today Hgb 11, Hct 34, MCV 92, platelets 103. Patient with [place]io blood noted in urine since admission, likely contributing to anemia. Low platelet may but due to acute hepatic injury of unknown etiology at this time. * Primary care team to continue monitoring labs and transfused as needed to keep Hgb >7 * Care with NSAID's, aspirin or anticoagulants Thank you very much for allowing me to share in the care of this very nice patient. This report may have been done utilizing a voice recognition system. Attempts have been made to correct errors. However, there may be uncorrected grammatical, spelling, and recognition errors present. GI Consult Note Consult date/time: 12/02/24 08:12 Reason for consult: Elevated LFT's HPI: Manisha Lundy is a 34 year old female with PMSH of chronic pain, schizophrenia, bipolar disorder, cholecystectomy [address] Rodriguez, recent gastric sleeve last month at [facility], and tubal ligation. She presented to ER with complaints for back pain. She had a MRI 11/30/2024 which showed L3-L4 disc herniation. She was admitted for head lice, elevated LFT's and hematuria. GI has been consulted to elevated LFT's. Patient denies any abdominal pain at this time but states that during her abdominal ultrasound she had tenderness. She admits to a decreased appetite and early satiety since her gastric surgery 1 month ago. She states that following her gastric bypass she had dark stools for a few days but this resolved. Prior to admission she was having a bowel movement every 1-2 days that were formed and not urgent. She states that recently she has been experiencing constipation. Denies nausea, vomiting, bloating, odynophagia, dysphagia, reflux, regurgitation, unexplained weight loss, diarrhea, hematochezia, or melena. Patient uses meloxicam daily. She is a nondrinker nonsmoker and denies marijuana use. Family history includes mother of stomach cancer when she was 4 years old and she was unable to provide any further details. ENDOSCOPY HISTORY: Patient has never had an EGD or colonoscopy. LABS AND STOOL STUDIES: Labs 12/02/2024: WBC 6, Hgb 11, Hct 34, MCV 92, platelets 103, INR 1.1 Sodium 136, potassium 3.5, BUN 14, creatinine 0.51, GFR >60, calcium 9.0 Total bilirubin 0.6, AST 2264, ALT 902, Alkaline Phos 174, albumin 3.4, Labs 12/01/2024: WBC 7, Hgb 13, Hct 39, MCV 89, platelets 109 Sodium 137, potassium 3.6, BUN 18, creatinine 0.51, GFR >60, calcium 9.4 Total bilirubin 0.6, AST 2613, ALT 981, Alkaline Phos 218, albumin 4.2 Labs 10/01/2024: WBC 5, Hgb 9.0, Hct 28, MCV 94, platelets 146 Sodium 139, potassium 3.9, BUN 8, creatinine 0.75, GFR >60, calcium 8.9 Total bilirubin 0.2, AST 38, ALT 66, Alkaline Phos 106, albumin 3.2 Labs 09/26/2024: Lipase 26, B12 879, folate 7.3 IMAGING: CT abd/pelvis w/o contrast 12/01/2024: FINDINGS: Lung bases unremarkable. Heart size normal. No significant pleural or pericardial effusion. Status post cholecystectomy. The liver, spleen, pancreas, adrenal glands and kidneys are unremarkable. Nonobstructive bowel gas pattern. No abnormal pelvic masses or fluid collections. No significant vascular abnormality. No lymphadenopathy there are changes of gastric bypass surgery. No acute osseous abnormality. IMPRESSION: 1. No acute abdominal abnormality. Abdominal Ultrasound 12/01/2024: IMPRESSION: Limited evaluation of the pancreas secondary to overlying bowel gas Fatty infiltration of an enlarged liver. While the liver is increased in size, it has decreased in size from previous examination performed 09/26/2024. HIDA scan 09/29/2024: FINDINGS: There is normal clearance of radiotracer from the blood pool. There is homogeneous tracer uptake by the liver. Activity progresses to the common bile duct and bowel with activity first evident on the 10 minute imaging. There is progressive accumulation of bowel activity over the subsequent 15 minutes of imaging. No evident bile leak. IMPRESSION: 1. Normal postcholecystectomy hepatobiliary scan with no evident bile leak. Abdominal Ultrasound 09/26/2024: IMPRESSION: Acute cholecystitis, as detailed above. No common bile duct dilatation. Hepatomegaly. Review of Systems 2 Constitutional: Constitutional: Reports as per HPI ENT: Reports as per HPI Cardiovascular: Cardiovascular: Reports as per HPI, Denies chest pain and Denies dyspnea Respiratory: Respiratory: Denies cough and Denies dyspnea Gastrointestinal: Gastrointestinal: Reports as per HPI Musculoskeletal: Musculoskeletal: Reports as per HPI Integumentary/Breasts: Skin/Breast: Reports as per HPI Psychiatric: Psychiatric: Reports as per HPI Endocrine: Endocrine: Reports no additional endocrine complaints Hematologic/Lymphatic: Hematologic/Lymphatic: Reports no additional hematologic/lymphatic complaints [facility] Past Medical History Medical History (Updated 12/02/24 @ 11:26 by Kesha Gallardo APRN) Constipation Chronic pain Head lice Schizophrenia Bipolar affective disorder Surgical History Surgical History Hx laparoscopic cholecystectomy 09/28/[address] Rodriguez History of History of tubal ligation Family History Family History Father Diabetes mellitus Mother Cancer of stomach Other Patient's mother is Social History Social History Smoking status: Never smoker Second hand tobacco smoke exposure: No Alcohol intake: never Substance use: never Substance use type: does not use Do You Feel Safe in your Home?: Yes Lack of Transportation: No Lack of Food: Never True Current Housing: I Have Housing Concerned About Future Housing: YES Difficulty Paying Gas/Electric Bills: YES Difficulty Paying for Meds: No Currently Unemployed: No Education: High School Diploma/GED Difficulty w/ Childcare or Family Care: No Living arrangements: with family Gender identity (if verbalized by the patient): Female Sexual Orientation (if Verbalized by the Patient): Straight or Heterosexual Spiritual care concerns: No Meds Home Medications and Allergies Home Medications ?Medication ?Instructions ?Recorded ?Confirmed ?Type meloxicam 15 mg tablet 15 mg PO DAILY #15 tabs 04/0 10/0612/02/24 Rx acetaminophen 500 mg tablet 1,000 mg (2 x 500 mg) PO . q8 PRN 09/23/24 12/02/24 Rx (Acetaminophen Extra Strength) fever or pain #60 tabs paroxetine HCl 40 mg tablet 40 mg PO DAILY PRN anxiety 09/26/24 12/02/24 History topiramate 100 mg tablet 100 mg PO DAILY 09/26/24 History trazodone 50 mg tablet 50 mg PO HS PRN insomnia 12/02/24 History oxycodone-acetaminophen 5 mg-325 1 tablet PO Q6H PRN p ain #12 tabs 10/01/24 12/02/24 Rx mg tablet (Percocet) cyclobenzaprine 10 mg tablet 10 mg PO HS PRN muscle sp asm #30 11/26/24 12/02/24 Rx tabs Allergies Allergy/AdvReac Type Severity Reaction Status Date / Time No Known Allergies Allergy Verified 12/01/24 16:12 Vital Signs Vital Signs - 24 hr 12/01/24 16:25 12/01/24 19:38 12/02/24 00:00 Temperature 97.6 F 98.2 F 97.5 F L Pulse Rate 118 H 108 H 126 H Respiratory Rate 16 18 18 Blood Pressure 114/85 113/70 117/67 Pulse Oximetry 100 100 99 Oxygen Delivery Room Air 12/02/24 04:00 Temperature 97.1 F L Pulse Rate 85 Respiratory Rate 18 Blood Pressure 104/64 Pulse Oximetry 97 Oxygen Delivery Exam 2 Const: General: cooperative, healthy appearing, comfortable, no acute distress and well developed Orientation/consciousness: oriented to person, oriented to place, oriented to time and patient oriented x3 HENMT: Head: normal to inspection, normocephalic and atraumatic Mouth: Yes Normal oral and palatal mucosa present and Yes moist mucous membranes Eyes: General: appearance normal, both eyes and all related structures C onjunctivae: conjunctivae normal Sclera: sclerae normal Pupils: Equal, round and reactive pupils present Neck: Neck: normal visual inspection Chest: Chest palpation & inspection: normal inspection of the chest Resp: Effort & Inspection: normal respiratory effort and able to speak in complete sentences Auscultation: clear to auscultation bilaterally Cardio: Jugular venous distension: no JVD Rate: regular rate Rhythm: r egular rhythm Heart sounds: S1 normal heart sound present and S2 normal heart sound present GI: Inspection: normal to inspection GI Palp: Yes Soft to palpation and Yes No hepatosplenomegaly present Auscultation: normal bowel sounds Rectal Exam: deferred Skin: General skin exam: normal color and no rashes or lesions noted Neuro: General: oriented to person, oriented to place, oriented to time and patient oriented x3 Cranial nerves: Yes Equal, round and reactive pupils present Speech: normal speech Extrem: General: normal to inspection and no clubbing, cyanosis or edema Psych: Appearance: grossly normal and well kempt Affect: normal affect Results Labs 12/02/24 05:54 12/02/24 05:54 Labs: Short CBC 12/01/24 12/02/24 Range/Units 17:53 05:54 WBC 7.3 5.7 (4.5-10.0) K/mm3 Hgb 13.4 11.1 L (12.0-15.0) g/dL Hct 39.1 33.7 L (37.0-47.0) % Plt Count 109 L 103 L (150-375) k/mm3 BMP 12/01/24 12/02/24 17:53 05:54 Sodium 137 136 L Potassium 3.6 3.5 Chloride 105 106 Carbon Dioxide 20 L 21 L BUN 18 H 14 Creatinine 0.51 L 0.51 L Glucose 94 75 Calcium 9.4 9.0 Liver Function 12/01/24 12/02/24 Range/Units 17:53 05:54 Total Bilirubin 0.6 0.6 (0.2-1.3) mg/dL AST 2613 H 2264 H (14-36) U/L ALT 981 H 902 H (6-35) U/L Alkaline Phosphatase 218 H 174 H (38-126) U/L Albumin 4.2 3.4 L (3.5-5.1) g/dL Urine 12/01/24 Range/Units 17:53 Urine Color [place] H (Yellow) Urine Appearance Turbid H (Clear) Urine pH 6.5 (5.0-9.0) Ur Specific [place] 1.030 (1.001-1.035) Urine Protein 2+ H (Negative) mg/dL Urine Glucose (UA) Negative (Negative) mg/dL
[2024-12-02] MEDS: MELOXICAM 7.5 MG TABLET 15 MG PO (09:55)
[2024-12-02] MEDS: TOPIRAMATE 100 MG TABLET PO (09:55)
[2024-12-02 14:00] VITALS: BP 105/54; PULSE 100; RESP 19; TEMP 36.3; O2SAT 98
[2024-12-02 14:06] LABS: Creatine Kinase > 16000 U/L (30-135)
[2024-12-02 20:47] LABS: Vitamin B12 637.0 pg/mL (239-931)
[2024-12-02 21:05] VITALS: BP 123/74; PULSE 95; RESP 17; TEMP 36.3; O2SAT 99
[2024-12-02] MEDS: SODIUM CHLORIDE 0.9% IV 1,000 ML 200 ML IV CONT (21:08)
[2024-12-02] MEDS: ONDANSETRON INJ 4 MG/2 ML VIAL IV PUSH (21:51)
[2024-12-02 22:02] LABS: Cannabinoid Screen Urine Negative (Negative)
[2024-12-03 05:55] VITALS: BP 102/60; PULSE 79; RESP 16; TEMP 36.6; O2SAT 98
[2024-12-03 06:07] LABS: HSV 1 IgG, Type Spec Reactive (Non Reactive); HSV 2 IgG, Type Spec Reactive (Non Reactive)
[2024-12-03 07:09] LABS: Cytomegalovirus (CMV) Ab, IgG >10.00 U/mL (0.00-0.59); Cytomegalovirus (CMV) Ab, IgM <30.0 AU/mL (0.0-29.9)
[2024-12-03] MEDS: MELOXICAM 7.5 MG TABLET 15 MG PO (09:21)
[2024-12-03] MEDS: TOPIRAMATE 100 MG TABLET PO (09:21)
[2024-12-03] MEDS: oxyCODONE/ACETAMINOPHEN (*CRX) 5-325 MG TABLET 1 TABLET PO ×3 (09:22→20:25)
[2024-12-03 11:22] LABS: Creatine Kinase > 16000 U/L (30-135)
--- NOTE | 2024-12-03 13:57 | P.PNIM_ITS ---
Progress Note: A&P Assessment and Plan (1) Rhabdomyolysis: Code(s): M62.82 - Rhabdomyolysis Status: Acute Assessment and Plan: Denies recent trauma, immobility, medication changes, seizure history, drug use Possibly related to vitamin deficiencies from gastric sleeve, checking thiamine, b12, folic and vitamin d Possibly related to Topamax - CK > 36998 - Bili WNL. LFTs significantly elevated with AST 2264, ALT 902, and alk phos 174 on am labs - Renal function and electrolytes WNL - UDS ordered - Urine concerning for hematuria, however some discoloration potentially related to myoglobin. Myoglobin urine ordered. - IV fluids: 200 ml/hr NS 12/03 repeated ck -unchanged >29659 will consult neurology for myopathy continue IV fluids (2) High liver transaminase level: Code(s): R74.01 - Elevation of levels of liver transaminase levels Status: Acute Assessment and Plan: * Normal Bilirubin. AST/ALT/Alk Phos: 2613/981/213 on admission. Baselines for these are 30-60/60-80/80-150. Remains significantly elevated on am labs, likely related to patients rha bdomyolysis * Denies recent travel * Hepatitis panel negative * CT Abd and pelvis negative for any acute findings * Abdomen US showed fatty infiltration of an enlarged liver, portal vein is patent, demonstrating hepatopedal flow. * Consult GI DDX: acute viral etiology vs muscle injury vs autoimmune hepatitis vs hepatic vein thrombosis less likely shock liver Labs ordered to rule out acute viral cause, autoimmune etiology or muscle injury MRI ordered to rule out hepatic vein thrombosis (3) Abnormal finding on urinalysis: Code(s): R82.90 - Unspecified abnormal findings in urine Status: Acute Assessment and Plan: UA with turbid appearance, 2+ protein, 3+ ketones, 2+ blood and greater than 100 RBC Denies UTI symptoms including burning sensation, dysuria, urgency/frequency Hematuria started on 12/02, denies associated clots Possible underlying kidney disease given history of hematuria and proteinuria in the past May consider a nephrology consult or have patient obtain an outpatient UA to reassess (4) H/O abdominal surgery: Code(s): Z98.890 - Other specified postprocedural states Status: Acute Assessment and Plan: * Cholecystectomy in 09/[address] Rodriguez * Gastric sleeve in October 2024 at [facility]. (5) Constipation: Code(s): K59.00 - Constipation, unspecified Status: Acute Assessment and Plan: * CT without evidence of obstruction. * Miralax daily ordered. (6) Head lice: Code(s): B85.0 - Pediculosis due to Pediculus humanus capitis Status: Acute Assessment and Plan: * Permethrin ordered * Contact Isolation (7) Chronic pain: Code(s): G89.29 - Other chronic pain Status: Chronic Assessment and Plan: * Secondary to chronic back pain. * MRI performed yesterday with multi-level bulging discs and no central cord compression. * Oxycodone 5/325 po Q4 hrs prn ordered. * Fall precautions (8) Bipolar affective disorder: Code(s): F31.9 - Bipolar disorder, unspecified Status: Chronic Assessment and Plan: * Continue home meds Time Spent With Patient Time with patient: 25 - 35 minutes Subjective Date/time seen: 12/03/24 13:57 Interval history: 34-year-old female patient with history of schizophrenia, bipolar affective disorder, gastric sleeve placement on November 10 at [facility] and chronic back pain presented to the emergency room for the 2nd time in 5 days with persistent chronic back pain, reporting no bowel movement for 1 week and dark appearing urine. Patient is pleasant lying comfortably in bed. She is noted to have severe rhabdomyolysis on labs. She denies recent trauma, immobility, medication changes, seizure history, drug use. She denies any muscle aches/pains. She notes hematuria however possibly myoglobin contributing. She has no other complaints denying chest pain, palpitations, shortness of breath, nausea/vomiting, abdominal pain. Patient was noted to have urinary retention on bladder scan, taken to the restroom and voiding completely. assuming care for today. Neurology consulted for myopathy. Review of Systems Review of Systems: All systems reviewed & are unremarkable except as noted in HPI and below Exam Narrative: AF HR 100 RR 19 SpO2 98 BP 105/54 General: female in no acute respiratory distress who is nontoxic appearing, lying semi recumbent in bed. HEENT: Normocephalic. Atraumatic. Extraocular movement intact. Sclera clear and anicteric. No facial asymmetry. Chest: Lungs are clear to auscultation bilaterally. No wheezes or crackles. CV: Heart was regular rate and rhythm. Abd: Abdomen was soft. Nontender. Nondistended. Positive bowel sounds. Ext: No clubbing, cyanosis, or edema. DP pulses bilaterally. Neuro: Patient is alert and oriented x4.Speech is clear. Const: General: uncomfortable Other: Morbidly obese female pt lying supine at this time in the stretcher. HENMT: Face/Nose/Sinus: Normal nares present Mouth: Yes moist mucous membranes Eyes: General: appearance normal, both eyes and all related structures EOM: EOMs intact bilaterally Neck: Neck: supple and no JVD Lymphatic: lymphadenopathy not noted Resp: Effort & Inspection: normal respiratory effort Auscultation: clear to auscultation bilaterally Cardio: Rate: regular rate Rhythm: regular rhythm Heart sounds: no gallops, no murmurs and no rubs GI: Auscultation: normal bowel sounds Other: Abdomen has well healed lap sites on anterior abdomen with some mild bruising. Skin: General skin exam: normal color, No lesion and No rashes Lesions: no lesions noted Rashes: no rashes noted Wounds: no wounds Other: There is noted lice on pt's scalp and on hair as well as clothing. Neuro: Speech: normal speech Motor exam (neuro): 5/5 motor strength present throughout and Normal motor muscle tone present throughout Sensory Exam: normal sensation Extrem: General: normal to inspection, no edema and no pedal edema Other: Freely and equally MAEW without deficit. Psych: Mental Status: mental status grossly normal Affect: normal affect Objective Data Vital Signs Vital Signs: Vital Signs - 24 hr 12/02/24 14:00 12/02/24 21:05 12/02/24 21:08 Temperature 97.4 F L 97.3 F L Pulse Rate 100 95 Respiratory Rate 19 17 Blood Pressure 105/54 L 123/74 Pulse Oximetry 98 99 Oxygen Delivery Room Air 12/03/24 05:55 12/03/24 08:00 Temperature 97.9 F Pulse Rate 79 Respiratory Rate 16 Blood Pressure 102/60 Pulse Oximetry 98 Oxygen Delivery Room Air Intake/Output Intake/Output: Intake & Output 11/30/24 12/01/24 12/02/24 12/03/24 23:59 23:59 23:59 23:59 Intake Total 1000 2757.1 340 Output Total 1200 Balance 1000 2757.1 -860 Meds/Results Medications: Active Medications Generic Name Dose Route Start Last Admin Trade Name Freq PRN Reason Stop Dose Admin Fentanyl Citrate 50 mcg 12/01/24 20:50 Fentanyl Citrate Inj (*Crx) 100 Mcg/2 Ml Vial IV PUSH Q2H PRN Pain Rated 7-10 Sodium Chloride 1,000 mls @ 200 mls/hr 12/01/24 20:50 12/02/24 21:08 Normal Saline Iv IV CONT 200 mls/hr .Q5H FLORENTINO Administration Meloxicam 15 mg 12/02/24 09:00 12/03/24 09:21 Meloxicam 7.5 Mg Tablet PO 15 mg DAILY FLORENTINO Administration Ondansetron HCl 4 mg 12/01/24 20:50 12/02/24 21:51 Ondansetron Inj 4 Mg/2 Ml Vial IV PUSH 4 mg Q4H PRN Administration Nausea Oxycodone/Acetaminophen 1 tablet 12/01/24 22:03 12/03/24 09:22 Oxycodone/Acetaminophen (*Crx) 5-325 Mg Tablet PO 1 tablet Q4H PRN Administration Pain Rated 7-10 Paroxetine HCl 40 mg 12/02/24 07:24 Paroxetine 20 Mg Tablet PO DAILY PRN Anxiety Polyethylene Glycol 17 gm 12/02/24 09:00 12/03/24 09:22 Polyethylene Glycol 3350 17 Gm Powd.Pack PO 17 gm QAM FLORENTINO Administration Topiramate 100 mg 12/02/24 09:00 12/03/24 09:21 Topiramate 100 Mg Tablet PO 100 mg DAILY FLORENTINO Administration Trazodone HCl 50 mg 12/02/24 01:03 12/02/24 21:15 Trazodone Hcl 50 Mg Tablet PO 50 mg HS PRN Administration Insomnia Trazodone HCl 50 mg 12/02/24 07:24 Trazodone Hcl 50 Mg Tablet PO HS PRN Insomnia Radiology Results: ITS Impressions Abdomen/Pelvis CT 12/01/24 19:29 IMPRESSION: 1. No acute abdominal abnormality. Abdomen Ultrasound 12/01/24 22:57 IMPRESSION: Limited evaluation of the pancreas secondary to overlying bowel gas Fatty infiltration of an enlarged liver. While the liver is increased in size, it has decreased in size from previous examination performed 09/26/2024. Abdomen MRI 08/22/25 13:43 IMPRESSION: 1. Small amount of pneumobilia in the right hepatic lobe likely related to prior cholecystectomy. No biliary ductal dilation, portal venous thrombosis or hepatic venous thrombosis. Labs Labs: Laboratory Results - last 24 hr 12/02/24 12/02/24 12/02/24 12:05 19:02 21:09 Total Creatine Kinase > 90871 H Vitamin B12 637.0 Vitamin D 25-Hydroxy 22.2 Folate 4.0 Urine Opiates Screen Positive A Urine Methadone Screen Negative Ur Barbiturates Screen Negative Ur Phencyclidine Scrn Negative Ur Amphetamine Screen Negative U Benzodiazepines Scrn Negative Urine Cocaine Screen Negative U Cannabinoids Screen Negative Actin IgG Antibody 5 CMV IgG Ab >10.00 H CMV IgM Ab <30.0 HSV1 IgG Type-Specific Ab Reactive A HSV2 IgG Type-Specific Ab Reactive A 12/03/24 10:08 Total Creatine Kinase > 49467 H Vitamin B12 Vitamin D 25-Hydroxy Folate Urine Opiates Screen Urine Methadone Screen Ur Barbiturates Screen Ur Phencyclidine Scrn Ur Amphetamine Screen U Benzodiazepines Scrn Urine Cocaine Screen U Cannabinoids Screen Actin IgG Antibody CMV IgG Ab CMV IgM Ab HSV1 IgG Type-Specific Ab HSV2 IgG Type-Specific Ab Quality VTE Prophylaxis VTE prophylaxis: mechanical ordered
[2024-12-03 14:00] VITALS: BP 113/68; PULSE 85; RESP 18; TEMP 36.9; O2SAT 98
[2024-12-03 14:08] LABS: EBV Nuclear Antigen Ab, IgG 67.0 U/mL (0.0-17.9)
[2024-12-03] MEDS: SODIUM CHLORIDE 0.9% IV 1,000 ML 200 ML IV CONT ×2 (14:13→20:25)
[2024-12-03 20:00] VITALS: PULSE 89; RESP 16; O2SAT 98
[2024-12-03 20:48] VITALS: BP 107/64; PULSE 89; RESP 16; TEMP 36.4; O2SAT 98
[2024-12-04] MEDS: SODIUM CHLORIDE 0.9% IV 1,000 ML 200 ML IV CONT ×2 (01:36→05:45)
[2024-12-04 06:00] VITALS: BP 117/72; PULSE 88; RESP 18; TEMP 36.4; O2SAT 99
[2024-12-04] MEDS: oxyCODONE/ACETAMINOPHEN (*CRX) 5-325 MG TABLET 1 TABLET PO ×2 (06:18→12:23)
[2024-12-04 06:30] LABS: Hematocrit 33.7 % (37.0-47.0); Hemoglobin 11.2 g/dL (12.0-15.0); Immature Platelet Fraction Pct 4.6 % (0.9-11.2); Mean Corpuscular HGB Conc 33.2 g/dl (32-36); Mean Corpuscular Hemoglobin 30.3 pg (26-34); Mean Corpuscular Volume 91.1 fl (80-100); Platelet Count Result 104 k/mm3 (150-375); Red Blood Count 3.70 M/mm3 (4.2-5.4); White Blood Count 3.9 K/mm3 (4.5-10.0)
[2024-12-04 06:55] LABS: Anion Gap 6 mmol/L (4-12); Blood Urea Nitrogen 7 mg/dL (7-17); Calcium 8.9 mg/dL (8.4-10.2); Carbon Dioxide 19 mmol/L (22-30); Chloride 112 mmol/L (98-107); Estimated CRCL calculation 127 ml/min; Estimated Glomerular Filt Rate > 60; Glucose 92 mg/dL (65-110); Potassium 3.4 mmol/L (3.4-5.0); Sodium 137 mmol/L (137-145)
[2024-12-04 07:29] LABS: Creatine Kinase > 16000 U/L (30-135)
[2024-12-04 08:06] LABS: Albumin Level 3.0 g/dL (3.5-5.1); Alkaline Phosphatase 155 U/L (38-126); Bilirubin,Total 0.2 mg/dL (0.2-1.3); Total Protein 5.9 g/dL (6.3-8.2)
[2024-12-04 08:36] LABS: Alanine Aminotransferase 874 U/L (6-35)
[2024-12-04 08:45] LABS: Aspartate Amino Transferase 1663 U/L (14-36)
[2024-12-04] MEDS: MELOXICAM 7.5 MG TABLET 15 MG PO (08:57)
[2024-12-04] MEDS: TOPIRAMATE 100 MG TABLET PO (08:57)
[2024-12-04] MEDS: SODIUM CHLORIDE 0.9% IV 1,000 ML 150 ML IV CONT (12:19)
--- NOTE | 2024-12-04 12:41 | PM.IMPN ---
Progress Note: A&P Assessment and Plan (1) Rhabdomyolysis: Code(s): M62.82 - Rhabdomyolysis Status: Acute Assessment and Plan: Denies recent trauma, immobility, medication changes, seizure history, drug use Multifactorial etiology including not limited to : Recent hx of bariatric surgery/cholecystectomy/Medication side effect/Vitamin deficiency/Electrolyte deficiency Normal vitamin D level, vitamin B12 AST/ALT down trending CPK>16K no change, UDS positive for opiates, negative for any other drugs Renal function normal plan Follow thiamine level, phosphorus Neurology consult for myopathy continue IVF 150 cc/hr Check CPK in the morning Doppler US of leg to rule out DVT for leg pain and subjective calf swelling CMP daily (2) High liver transaminase level: Code(s): R74.01 - Elevation of levels of liver transaminase levels Status: Acute Assessment and Plan: pt presents with back pain for several days and feeling unwell for awhile and had multiple provider visit without identifying the issues In this admission, MRI lumbar reveal L3-L4 mild disc herniation No abdominal pain/Fever or chills/Rash/diarrhea on presentation, AST/ALT/ALk phos :2613/981/213, today 1663/874/155 respectively Thus far, work up has been negative except, U/S liver shows fatty infiltrates pointing MASH DDX includes acute viral hepatitis vs autoimmune hepatitis vs myopathy MRI abdomen negative for biliary ductal dilation, portal venous thrombosis or hepatic venous thrombosis Hepatitis panel negative GI consulted, appreciate recs Follow HIV, chlamydia, Endomysial antibodies, Antimitochondrial antibodies, IGG and CRP CMP daily (3) Abnormal finding on urinalysis: Code(s): R82.90 - Unspecified abnormal findings in urine Status: Acute Assessment and Plan: Hematuria likely secondary to rhabdomyolysis Denies burning Pain or urgency or frequency (4) H/O abdominal surgery: Code(s): Z98.890 - Other specified postprocedural states Status: Acute Assessment and Plan: Cholecystectomy in 09/[address] Rodriguez Gastric sleeve in October 2024 at [facility]. No abdominal pain (5) Constipation: Code(s): K59.00 - Constipation, unspecified Status: Acute Assessment and Plan: 12/01/2024, CT abdomen/pelvis to show negative for stool impaction Continue MiraLAX as needed (6) Head lice: Code(s): B85.0 - Pediculosis due to Pediculus humanus capitis Status: Acute Assessment and Plan: Contact isolation Topical permethrin for lice control (7) Chronic pain: Code(s): G89.29 - Other chronic pain Status: Chronic Assessment and Plan: Secondary to chronic back pain. 11/29/2024, MRI lumbar shows minimal lumbar spondylosis with no central canal stenosis Lidocaine patch and Tylenol prn Fall precautions (8) Bipolar affective disorder: Code(s): F31.9 - Bipolar disorder, unspecified Status: Chronic Assessment and Plan: Continue home meds Subjective Date/time seen: 12/04/24 12:41 Interval history: Patient seen and evaluated this morning. She reports left upper arm pain but no IV infiltrate or swelling. Also reports generalized muscle pain and weakness. She is having hematuria. No burning pain, frequency or urgency. No abdominal pain, fever or chills Objective Data Vital Signs Vital Signs: Vital Signs - 24 hr 12/03/24 14:00 12/03/24 20:00 12/03/24 20:48 Temperature 36.9 C 36.4 C Pulse Rate 85 89 89 Respiratory Rate 18 16 16 Blood Pressure 113/68 107/64 Pulse Oximetry 98 98 98 Oxygen Delivery Room Air 12/04/24 06:00 12/04/24 08:00 Temperature 36.4 C L Pulse Rate 88 Respiratory Rate 18 Blood Pressure 117/72 Pulse Oximetry 99 Oxygen Delivery Room Air Intake/Output Intake/Output: Intake & Output 12/01/24 12/02/24 12/03/24 12/04/24 23:59 23:59 23:59 23:59 Intake Total 1000 2757.1 4320 3470 Output Total 1800 700 Balance 1000 2757.1 2520 2770 Meds/Results Medications: Active Medications Generic Name Dose Route Start Last Admin Trade Name Freq PRN Reason Stop Dose Admin Acetaminophen 1,000 mg 12/04/24 12:40 Acetaminophen 500 Mg Tablet PO .q8 PRN fever or pain Fentanyl Citrate 50 mcg 12/01/24 20:50 Fentanyl Citrate Inj (*Crx) 100 Mcg/2 Ml Vial IV PUSH Q2H PRN Pain Rated 7-10 Sodium Chloride 1,000 mls @ 200 mls/hr 12/01/24 20:50 12/04/24 12:19 Normal Saline Iv IV CONT 200 mls/hr .Q5H FLORENTINO Administration Meloxicam 15 mg 12/02/24 09:00 12/04/24 08:57 Meloxicam 7.5 Mg Tablet PO 15 mg DAILY FLORENTINO Administration Ondansetron HCl 4 mg 12/01/24 20:50 12/02/24 21:51 Ondansetron Inj 4 Mg/2 Ml Vial IV PUSH 4 mg Q4H PRN Administration Nausea Oxycodone/Acetaminophen 1 tablet 12/01/24 22:03 12/04/24 12:23 Oxycodone/Acetaminophen (*Crx) 5-325 Mg Tablet PO 1 tablet Q4H PRN Administration Pain Rated 7-10 Oxycodone/Acetaminophen 1 tablet 12/04/24 12:40 Oxycodone/Acetaminophen (*Crx) 5-325 Mg Tablet PO Q6H PRN Pain Paroxetine HCl 40 mg 12/02/24 07:24 Paroxetine 20 Mg Tablet PO DAILY PRN Anxiety Polyethylene Glycol 17 gm 12/02/24 09:00 12/04/24 08:57 Polyethylene Glycol 3350 17 Gm Powd.Pack PO 17 gm QAM FLORENTINO Administration Topiramate 100 mg 12/02/24 09:00 12/04/24 08:57 Topiramate 100 Mg Tablet PO 100 mg DAILY FLORENTINO Administration Trazodone HCl 50 mg 12/02/24 01:03 12/03/24 22:01 Trazodone Hcl 50 Mg Tablet PO 50 mg HS PRN Administration Insomnia Trazodone HCl 50 mg 12/02/24 07:24 Trazodone Hcl 50 Mg Tablet PO HS PRN Insomnia Radiology Results: ITS Impressions Abdomen/Pelvis CT 12/01/24 19:29 IMPRESSION: 1. No acute abdominal abnormality. Abdomen Ultrasound 12/01/24 22:57 IMPRESSION: Limited evaluation of the pancreas secondary to overlying bowel gas Fatty infiltration of an enlarged liver. While the liver is increased in size, it has decreased in size from previous examination performed 09/26/2024. Abdomen MRI 12/03/24 13:43 IMPRESSION: 1. Small amount of pneumobilia in the right hepatic lobe likely related to prior cholecystectomy. No biliary ductal dilation, portal venous thrombosis or hepatic venous thrombosis. Labs Labs: Laboratory Results - last 24 hr 12/02/24 12/04/24 12:05 06:20 WBC 3.9 L RBC 3.70 L Hgb 11.2 L Hct 33.7 L MCV 91.1 MCH 30.3 MCHC 33.2 RDW 12.5 Plt Count 104 L MPV 12.1 H % Immature Plt Fraction 4.6 Sodium 137 Potassium 3.4 Chloride 112 H Carbon Dioxide 19 L Anion Gap 6 BUN 7 D Creatinine 0.52 L Estim Creat Clear Calc 127 Estimated GFR > 60 Glucose 92 Calcium 8.9 Total Bilirubin 0.2 Direct Bilirubin 0.0 AST 1663 H ALT 874 H Alkaline Phosphatase 155 H Total Creatine Kinase > 55254 H Total Protein 5.9 L Albumin 3.0 L Actin IgG Antibody 5 EBV Capsid Ag IgG Ab >600.0 H EBV Capsid Ag IgM Ab <36.0 EBV Nuclear Antigen Ab 67.0 H EBV Interpretation Comment Quality VTE Prophylaxis VTE prophylaxis: mechanical ordered
[2024-12-04 13:45] LABS: Syphilis IgG/IgM Antibody Non-Reactive (Nonreactive)
[2024-12-04 14:00] VITALS: BP 105/59; PULSE 85; RESP 20; TEMP 36.2; O2SAT 96
[2024-12-04 14:08] LABS: HIV 1/2 Ab P24 Ag Result Negative (Negative)
[2024-12-04 15:06] LABS: CRP 5.3 mg/dL (<1.0)
--- NOTE | 2024-12-04 16:44 | WPDNEURCNPN ---
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 It was noted that her liver enzymes were high in mid September but at this time they are significantly higher but of course these are most likely due to CPK being greater than 16,000. most likely were dealing with the painful proximal myopathy such as polymyositis however the etiology for this is unclear. She may requires further looking into this with muscle biopsy and look for underlying malignancy in some cases. I will suggest a referral to a tertiary care center for further evaluation given her relatively young age and the fact that she has undergone operations and empiric therapy should not be done without some further diagnostic procedures. Consult date: 12/04/24 HPI: Manisha Lundy is a 34 year old female With complaints of pain and weakness around the shoulder girdle and also in the hip area. She has had a surgery for gastric sleeve on November 10 which is only 24 days ago. She has been to many emergency room and now she is admitted because she was found to have a CPK greater than 16,000. it should be noted that there is no further dilution so we do not know how high the CPK actually is. AST and ALT were high that were thought to be due to increased CPK. There is no prior history of any muscle disease. It was noted that in March 2024 her liver enzymes were normal however on 09/26/2024 her liver enzymes were noted to be high however a CPK was not done at that time. CPR was done 1st time on 12/02/2024 at our hospital with a number greater than 16,000 and has been persistently above this number since that time. Liver enzymes have been very high. She was also found to have fatty liver. 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 Vitamin B12, folic acid level were normal however vitamin-D level was somewhat low at 22. she came with complaints of lower back pain for 5 days. Review of Systems Review of Systems: She denies any history of recent fall or any febrile illness. No prior history of similar symptoms. She denies any shortness of breath or difficulty speech or swallowing. No symptoms referable to eyes. No incontinence of urine. She denies any other says pertinent symptoms. [facility] Past Medical History Medical History Proximal myopathy Constipation Chronic pain Head lice Schizophrenia Bipolar affective disorder Surgical History Surgical History Hx laparoscopic cholecystectomy 09/28/[address] Rodriguez History of History of tubal ligation Family History Family History Father Diabetes mellitus Mother Cancer of stomach Lupus Other Patient's mother is Social History Social History Smoking status: Never smoker Second hand tobacco smoke exposure: No Alcohol intake: never Substance use: never Substance use type: does not use Do You Feel Safe in your Home?: Yes Lack of Transportation: No Lack of Food: Never True Current Housing: I Have Housing Concerned About Future Housing: YES Difficulty Paying Gas/Electric Bills: YES Difficulty Paying for Meds: No Currently Unemployed: No Education: High School Diploma/GED Difficulty w/ Childcare or Family Care: No Living arrangements: with family Gender identity (if verbalized by the patient): Female Sexual Orientation (if Verbalized by the Patient): Straight or Heterosexual Spiritual care concerns: No Meds Home Medications and Allergies Home Medications ?Medication ?Instructions ?Recorded ?Confirmed ?Type meloxicam 15 mg tablet 15 mg PO DAILY #15 tabs 07/18/24 12/02/24 Rx acetaminophen 500 mg tablet 1,000 mg (2 x 500 mg) PO .q8 PRN 09/23/24 12/02/24 Rx (Acetaminophen Extra Strength) fever or pain #60 tabs paroxetine HCl 40 mg tablet 40 mg PO DAILY PRN anxiety 09/26/24 12/02/24 History topiramate 100 mg tablet 100 mg PO DAILY 09/26/24 12/02/24 History trazodone 50 mg tablet 50 mg PO HS PRN insomnia 09/26/24 12/02/24 History oxycodone-acetaminophen 5 mg-325 1 tablet PO Q6H PRN pain #12 tabs 10/01/24 12/02/24 Rx mg tablet (Percocet) cyclobenzaprine 10 mg tablet 10 mg PO HS PRN muscle spasm #30 11/26/24 12/02/24 Rx tabs Allergies Allergy/AdvReac Type Severity Reaction Status Date / Time No Known Allergies Allergy Verified 12/01/24 16:12 Vital Signs Vital Signs - 24 hr 12/03/24 20:00 12/03/24 20:48 12/04/24 06:00 Temperature 97.6 F 97.5 F L Pulse Rate 89 89 88 Respiratory Rate 16 16 18 Blood Pressure 107/64 117/72 Pulse Oximetry 98 98 99 Oxygen Delivery Room Air 12/04/24 08:00 12/04/24 14:00 Temperature 97.2 F L Pulse Rate 85 Respiratory Rate 20 Blood Pressure 105/59 L Pulse Oximetry 96 Oxygen Delivery Room Air Exam Const: General: cooperative, well developed and alert Orientation/consciousness: oriented to person, oriented to place and oriented to time HENMT: Head: atraumatic Mouth: Yes oropharynx normal Eyes: Alignment and Position: position normal Pupils: Equal, round and reactive pupils present EOM: EOMs intact bilaterally Neck: Neck: supple Resp: Effort & Inspection: normal respiratory effort Cardio: Rate: regular rate Rhythm: regular rhythm Skin: General skin exam: normal color Neuro: General: Unable to assess gait Cranial nerves: Yes CN's II-XII intact bilaterally, Yes facial sensation intact/muscles of mastication intact, Yes Equal, round and reactive pupils present, Yes Bilaterally intact EOM present, Yes Nystagmus not present, Yes facial symmetry, Yes Midline tongue present, Yes Symmetric palate elevation present and Yes Ability to bilaterally elevate shoulders present Cognition (Neuro): normal cognition Speech: normal speech Motor exam (neuro): Motor fasciculations not present, Normal motor muscle tone present throughout and Motor abnormalities not present Sensory Exam: normal sensation Coordination: [id number] test normal and Normal rapid alternating movements of the distal upper extremity present (Neuro) Other: Weakness of proximal muscles of the shoulder girdle as well as pelvic girdle were noted. The weakness appeared mild power grade 4/5. Deep tendon reflexes did not show any significant abnormalities. Extrem: General: normal to inspection Psych: Mental Status: mental status grossly normal Affect: normal affect Results Labs 12/04/24 06:20 12/04/24 06:20 Labs: Short CBC 12/04/24 Range/Units 06:20 WBC 3.9 L (4.5-10.0) K/mm3 Hgb 11.2 L (12.0-15.0) g/dL Hct 33.7 L (37.0-47.0) % Plt Count 104 L (150-375) k/mm3 BMP 12/04/24 06:20 Sodium 137 Potassium 3.4 Chloride 112 H Carbon Dioxide 19 L BUN 7 D Creatinine 0.52 L Glucose 92 Calcium 8.9 Cardiac Enzymes 12/04/24 Range/Units 06:20 Total Creatine Kinase > 04943 H (30-135) U/L Liver Function 12/04/24 Range/Units 06:20 Total Bilirubin 0.2 (0.2-1.3) mg/dL Direct Bilirubin 0.0 (0-0.3) mg/dL AST 1663 H (14-36) U/L ALT 874 H (6-35) U/L Alkaline Phosphatase 155 H (38-126) U/L Albumin 3.0 L (3.5-5.1) g/dL
[2024-12-04] MEDS: PERMETHRIN 5% CREAM 60 GM TUBE 1 APPLIC TOPICAL (16:53)
[2024-12-04] MEDS: DOCUSATE SODIUM 100 MG CAPSULE PO (17:36)
--- NOTE | 2024-12-04 17:50 | P.PNCROSS_ITS ---
Event Note Event Note Event Note: Discuss with neurology, high suspicion for polymyositis [facility] was contacted, discussed with a neurologist here and the hospitalist-patient got accepted waiting for bed for transfer
--- NOTE | 2024-12-04 18:23 | PM.TDS ---
Transfer Discharge Sum: Prov Provider Date of admission: 12/01/24 21:59 Primary care physician: Michel Neff MD Admitting clinician: Gail Marin MD Consults: 12/02/24 Consult to Physician Routine Comment: Left VM for 12/02 [id number] (-) Consulting Provider: Jh Blue main line assembler/MD group to consult: neurology Reason for consultation: myopathy with rhabdomyolysis Has provider been notified: Yes 12/03/24 Consult to Physician Routine Comment: spoke to dr @[id number] (,) Consulting Provider: Jh Blue main line assembler/MD group to consult: neurology Reason for consultation: myopathy Has provider been notified: Yes DS: Admitting Diagnosis Discharge Date 12/04/2024 Admitting Diagnosis Back pain, MRI lumbar shows multiple level disc bulging Incidental finding elevated CPK after noticing hematuria in the setting of generalized weakness and myalgia Significant elevation of liver enzyme likely secondary to rhabdo DS: Discharge Diagnosis Discharge Diagnosis (1) Rhabdomyolysis: Code(s): M62.82 - Rhabdomyolysis Status: Acute Assessment and Plan: Denies recent trauma, immobility, medication changes, seizure history, drug use Multifactorial etiology including not limited to : Recent hx of bariatric surgery/cholecystectomy/Medication side effect/Vitamin/ deficiency/Electrolyte deficiency/polymyositis Normal vitamin D level, vitamin B12 AST/ALT down trending CPK>16K no change, UDS positive for opiates, negative for any other drugs Renal function normal plan Follow thiamine level, phosphorus Neurology consult for myopathy continue IVF 150 cc/hr Check CPK in the morning Doppler US of leg to rule out DVT for leg pain and subjective calf swelling CMP daily (2) High liver transaminase level: Code(s): R74.01 - Elevation of levels of liver transaminase levels Status: Acute Assessment and Plan: pt presents with back pain for several days and feeling unwell for awhile and had multiple provider visit without identifying the issues In this admission, MRI lumbar reveal L3-L4 mild disc herniation No abdominal pain/Fever or chills/Rash/diarrhea on presentation, AST/ALT/ALk phos :2613/981/213, today 1663/874/155 respectively Thus far, work up has been negative except, U/S liver shows fatty infiltrates pointing MASH DDX includes acute viral hepatitis vs autoimmune hepatitis vs myopathy MRI abdomen negative for biliary ductal dilation, portal venous thrombosis or hepatic venous thrombosis Hepatitis panel negative, HIV negative, syphilis negative, CRP mildly elevated GI consulted, appreciate recs Follow chlamydia, Endomysial antibodies, Antimitochondrial antibodies, IGG CMP daily (3) Abnormal finding on urinalysis: Code(s): R82.90 - Unspecified abnormal findings in urine Status: Acute Assessment and Plan: Hematuria likely secondary to rhabdomyolysis Denies burning Pain or urgency or frequency (4) H/O abdominal surgery: Code(s): Z98.890 - Other specified postprocedural states Status: Acute Assessment and Plan: Cholecystectomy in 09/[address] Rodriguez Gastric sleeve in October 2024 at [facility]. No abdominal pain (5) Constipation: Code(s): K59.00 - Constipation, unspecified Status: Acute Assessment and Plan: 12/01/2024, CT abdomen/pelvis to show negative for stool impaction Continue MiraLAX as needed (6) Head lice: Code(s): B85.0 - Pediculosis due to Pediculus humanus capitis Status: Acute Assessment and Plan: Contact isolation Topical permethrin for lice control (7) Chronic pain: Code(s): G89.29 - Other chronic pain Status: Chronic Assessment and Plan: Secondary to chronic back pain. 11/29/2024, MRI lumbar shows minimal lumbar spondylosis with no central canal stenosis Lidocaine patch and Tylenol prn Fall precautions (8) Bipolar affective disorder: Code(s): F31.9 - Bipolar disorder, unspecified Status: Chronic Assessment and Plan: Continue home meds Transfer Discharge Sum: Med Medications Active and Home Medications: Home Medications meloxicam 15 mg tablet 15 mg PO DAILY #15 tabs 07/18/24 [Rx Confirmed 12/02/24] acetaminophen 500 mg tablet (Acetaminophen Extra Strength) 1,000 mg (2 x 500 mg) PO .q8 PRN fever or pain #60 tabs 09/23/24 [Rx Confirmed 12/02/24] paroxetine HCl 40 mg tablet 40 mg PO DAILY PRN anxiety 09/26/24 [History Confirmed 12/02/24] topiramate 100 mg tablet 100 mg PO DAILY 09/26/24 [History Confirmed 12/02/24] trazodone 50 mg tablet 50 mg PO HS PRN insomnia 09/26/24 [History Confirmed 12/02/24] oxycodone-acetaminophen 5 mg-325 mg tablet (Percocet) 1 tablet PO Q6H PRN pain #12 tabs 10/01/24 [Rx Confirmed 12/02/24] cyclobenzaprine 10 mg tablet 10 mg PO HS PRN muscle spasm #30 tabs 11/26/24 [Rx Confirmed 12/02/24] Active Medications Acetaminophen (Acetaminophen 325 Mg Tablet) 650 mg PO Q4H PRN PRN Reason: Mild Pain (1-3) or Fever Docusate Sodium (Docusate Sodium 100 Mg Capsule) 100 mg PO Q12H PRN PRN Reason: Constipation Last Admin: 12/04/24 17:36 Dose: 100 mg Fentanyl Citrate (Fentanyl Citrate Inj (*Crx) 100 Mcg/2 Ml Vial) 50 mcg IV PUSH Q2H PRN PRN Reason: Pain Rated 7-10 Sodium Chloride (Normal Saline Iv) 1,000 mls @ 150 mls/hr IV CONT .Q6H40M [facility] Last Admin: 12/04/24 12:19 Dose: 150 mls/hr Lidocaine (Lidocaine 5% Patch) 1 patch TRANSDERM DAILY [facility] Meloxicam (Meloxicam 7.5 Mg Tablet) 15 mg PO DAILY [facility] Last Admin: 12/04/24 08:57 Dose: 15 mg Ondansetron HCl (Ondansetron Inj 4 Mg/2 Ml Vial) 4 mg IV PUSH Q4H PRN PRN Reason: Nausea Last Admin: 12/02/24 21:51 Dose: 4 mg Oxycodone/Acetaminophen (Oxycodone/Acetaminophen (*Crx) 5-325 Mg Tablet) 1 tablet PO Q6H PRN PRN Reason: Pain 7-10 Paroxetine HCl (Paroxetine 20 Mg Tablet) 40 mg PO DAILY PRN PRN Reason: Anxiety Polyethylene Glycol (Polyethylene Glycol 3350 17 Gm Powd.Pack) 17 gm PO QAM [facility] Last Admin: 12/04/24 08:57 Dose: 17 gm Topiramate (Topiramate 100 Mg Tablet) 100 mg PO DAILY [facility] Last Admin: 12/04/24 08:57 Dose: 100 mg Trazodone HCl (Trazodone Hcl 50 Mg Tablet) 50 mg PO HS PRN PRN Reason: Insomnia Transfer Discharge Sum: Hosp Hospital Course Hospital course: Manisha Lundy is a 34 year old female Patient Condition: Stable Time Spent with Patient Time attestation: Total time spent providing and/or coordinating transfer services: DS: Data Data Completed and Pending Labs on day of discharge: Labs from last 24 hours 12/04/24 12/04/24 12/03/24 06:20 06:17 10:08 WBC 3.9 L RBC 3.70 L Hgb 11.2 L Hct 33.7 L MCV 91.1 MCH 30.3 MCHC 33.2 RDW 12.5 Plt Count 104 L MPV 12.1 H % Immature Plt Fraction 4.6 Sodium 137 Potassium 3.4 Chloride 112 H Carbon Dioxide 19 L Anion Gap 6 BUN 7 D Creatinine 0.52 L Estim Creat Clear Calc 127 Estimated GFR > 60 Glucose 92 Calcium 8.9 Phosphorus 3.2 Total Bilirubin 0.2 Direct Bilirubin 0.0 GGT Pending AST 1663 H ALT 874 H Alkaline Phosphatase 155 H Total Creatine Kinase > 01520 H C-Reactive Protein 5.3 H Total Protein 5.9 L Albumin 3.0 L IgG Pending IgG Subclass 1 Pending IgG Subclass 2 Pending IgG Subclass 3 Pending IgG Subclass 4 Pending c-ANCA Antibody Pending Proteinase 3 (PR3) Ab Pending Atypical p-ANCA Pending p-ANCA Antibody Pending Myeloperoxidase Ab Pending Mitochondria M2 Ab Pending Endomysial IgG Ab Endomysial IgA Ab Endomysial Ab Result Syphilis IgG/IgM Ab Non-reactive Chlamydia species IgG Pending C. pneumoniae IgG Ab Pending C. pneumoniae IgM Ab Pending C. trachomatis IgM Ab Pending C. psittaci IgG Ab Pending C. psittaci IgM Ab Pending HSV1 IgG Type-Specific Ab HSV2 IgG Type-Specific Ab HIV 1&2 Ab/P24 Ag 4thGn Negative S.cerevisiae IgG Ab Pending S.cerevisiae IgA Ab Pending 12/02/24 11:58 WBC RBC Hgb Hct MCV MCH MCHC RDW Plt Count MPV % Immature Plt Fraction Sodium Potassium Chloride Carbon Dioxide Anion Gap BUN Creatinine Estim Creat Clear Calc Estimated GFR Glucose Calcium Phosphorus Total Bilirubin Direct Bilirubin GGT AST ALT Alkaline Phosphatase Total Creatine Kinase C-Reactive Protein Total Protein Albumin IgG IgG Subclass 1 IgG Subclass 2 IgG Subclass 3 IgG Subclass 4 c-ANCA Antibody Proteinase 3 (PR3) Ab Atypical p-ANCA p-ANCA Antibody Myeloperoxidase Ab Mitochondria M2 Ab Endomysial IgG Ab Pending Endomysial IgA Ab Pending Endomysial Ab Result Pending Syphilis IgG/IgM Ab Chlamydia species IgG C. pneumoniae IgG Ab C. pneumoniae IgM Ab C. trachomatis IgM Ab C. psittaci IgG Ab C. psittaci IgM Ab HSV1 IgG Type-Specific Ab Pending HSV2 IgG Type-Specific Ab Pending HIV 1&2 Ab/P24 Ag 4thGn S.cerevisiae IgG Ab S.cerevisiae IgA Ab
--- OUTSIDE RECORDS SUMMARY | 2024-12-04 19:21 | XMS_ITS | Encounter Summary ---
Author Organization [facility] Address [address] [place] [address] Care Team Providers Care Dietary Aide Teacher Name Role Phone Michel Neff MD Primary Care Provider [phone] Reason for Visit * Auth/Cert (Routine) Specialty Diagnoses / Procedures Referred By Contac t Referred To Contact Diagnoses polymyositis Referral ID Status Reason Start Date Expiration Date Visits Re quested Visits Authorized [id number] 1 1 Encounter Details Date Type Department Care Team (Late st Contact Info) Description 12/04/2024 7:21 PM CDT - Present Hospital Encounter HC 4W TELE [address] [place] [address] [place] [address] [place] [address] Crow Ngo MD [address] [place] [address] Asuncion Mireles MD [address] [place] [address] Jaycee Norris MD [address] [place] [id number] Hospitalist Social History Tobacco Use Types Packs/Day Years Used Date Smoking Tobacco: Never Passive Smoke Exposure: Never Smokeless Tobacco: Never Tobacco Cessation:Counseling Given: Not Answered Alcohol Use Standard Drinks/Week Comments Never 0 (1 standard drink = 0.6 oz pur e alcohol) AUDIT-C Answer Date Recorded Q1: How often do you have a drink containing alcohol? Never 12/04/2024 Q2: How many drinks containi ng alcohol do you have on a typical day when you are drinking? Patient does not drink Q3: How often do you have si x or more drinks on one occasion? Never 12/04/2024 Overall Financial Resource Strain (CARDIA) Answe r Date Recorded How hard is it for you to pa y for the very basics like food, housing, medical care, and heating? Not very hard 12/04/2024 [facility] - Occupational Stress Questionnaire Answer Date Recorded Do you feel stress - tense, restless, nervous, or anxious, or unable to sleep at night because your mind is troubled all the time - these days? Only a little 12/04/2024 Hunger Vital Sign Answer Date Recorded Within the past 12 months, y ou worried that your food would run out before you got the money to buy more. Never true 12/05/19 25 Within the past 12 months, t he food you bought just didn't last and you didn't have money to get more. Never true 12/04/2024 PRAPARE - Transportation Answer Date Re corded In the past 12 months, has l ack of transportation kept you from medical appointments or from getting medications? No 11/13 In the past 12 months, has l ack of transportation kept you from meetings, work, or from getting things needed for daily living? No 12/04/2024 Housing Stability Vital Sign Answer Akbar e Recorded In the last 12 months, was t here a time when you were not able to pay the mortgage or rent on time? No 12/04/2024 Number of Times Moved in the Last Year Not on fi le 12/04/2024 At any time in the past 12 m [facility], were you homeless or living in a halfway (including now)? 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 Gender Identity Not on file Sexual Orientation Not on file documented as of this encounter Last Filed Vital Signs Vital Sign Reading Time Taken Comments Blood Pressure 114/72 12/07/2024 5:03 AM CDT Pulse 60 12/07/2024 5:03 AM CDT Temperature 36.4 C (97.6 F) 12/07/2024 5:03 AM CDT Respiratory Rate 16 12/07/2024 5:03 AM CDT Oxygen Saturation 92% 12/07/2024 12:15 AM CDT Inhaled Oxygen Concentration - - Weight 95.3 kg (210 lb) 12/04/2024 9:58 PM CDT Height 154.9 cm (5' 1) 12/04/2024 9:58 PM CDT Body Mass Index 39.68 12/04/2024 9:58 PM CDT documented in this encounter Functional Status * Question Answer Date of Assessment Author Q1: How often do you have a drink containing alcohol? Never 12/04/2024 10:00 PM Kay Mendoza RN Q2: How many drinks containing alcohol do you have on a typical day when you are drinking? Patient does not drink 12/04/2024 10:00 PM Kay Mendoza RN Q3: How often do you have six or more drinks on one occasion? Never 12/04/2024 10:00 PM Kay Mendoza RN * Audit-C Score Answer Date of Assessment Author 0 12/04/2024 10:00 PM Silvio Mendoza RN * Is person deaf or have serious hearing difficulty? Answer Date of Assessment Author No 12/04/2024 10:01 PM Silvio Mendoza RN * Is person blind or have serious difficulty seeing? Answer Date of Assessment Author No 12/04/2024 10:01 PM Silvio Mendoza RN * Does person have serious difficulty walking/climbing stairs? Answer Date of Assessment Author No 12/04/2024 10:01 PM CDT Ring, Al exandra S, RN * Does person have difficulty dressing/bathing? Answer Date of Assessment Author No 12/04/2024 10:01 PM CDT Silvio Yost RN * Does person have difficulty doing errands alone? Answer Date of Assessment Author No 12/04/2024 10:01 PM KENTRELLT Silvio Yost RN documented as of this encounter Mental Status * Does person have difficulty concentrating/remembering/making decisions? Answer Entry Date Author No 12/04/2024 10:01 PM KENTRELLT Silvio Yost RN documented in this encounter Progress Notes * Marianna Lang RN - 12/06/2024 6:38 PM CDT Pt c/o of pain in arms shoulder and legs, and numbness in feet. Meds given per mar. Appetite poor. Pt did have bm. * Alyce Covarrubias RN - 12/06/2024 3:56 PM CDT Care Coordination Initial Assessment Medicaid [employer] Expected Discharge Date: 12/09/2024 Expected Discharge Disposition: Home or Self Care Transportation at Discharge: Family Prior Level of Care: Home Prior to Admit Provider: None Comments: 34 year old female who presented with pain in both legs, arms and back for about 2 weeks,more so in the proximal muscles. Gastroenterology consulted for elevated liver enzymes are related to myopathy with high CK . Urine Opiate screen +. Admitted for Polymyositis, Transaminitis and Rhabdomyolysis. Plan: EMG, Considering IV/IG, Hematology Consult and BM regimen. Lives with: Children (4) Physical Limitations: None Requires Assistance With: None Preferred Pharmacy: No Pharmacies Listed READMISSION RISK SCORE is 9 at 3:56 PM 12/06/2024. 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 No Durable Medical Equipment Planning DME Provider: None List DME pt. requires but does not have.: None Highballer Referral: No Will continue to follow. For any questions or needs please contact: [employer]: Alyce Covarrubias RN., Ascom: [phone] * Maricel Mckenzie - 12/06/2024 3:43 PM CDT Occupational Therapy Initial Evaluation Orders received. Chart reviewed for diagnosis and medical systems review. Nursing consented for OT. Explained purpose of OT and patient consented to participate in therapy. Admitted; 1. Polymyositis (HCC) RECOMMENDATIONS/PLAN: Patient would benefit from continued skilled OT services during hospitalization Discharge Planning is a multi-disciplinary approach. Recommended Discharge Disposition is based on the clinician's clinical decision making regarding the patient's functional, physiological and social status at time of therapy assessment. OT Discharge Recommendations: Patient would benefit from intensive 3-hour multidisciplinary therapy PPE worn by staff: gloves;hair net;shoe covers;gown - disposable AM-PAC Daily Activity score for this patient is Daily Activity Raw Score:: 11 The AM-PAC 6-clicks Daily Activity TM is a system for measuring activity limitations based on WorldHealth Organization's International Classification of functioning, Disability and Health (ICF); designed for use across patient diagnoses and conditions, care settings; assess activities of daily living. 1=total assist/unable to perform, 4= independent/no difficulty performing; lower total scores indicate more difficulty moving about. Precautions: Fall / Alarm; lice PMH: Past Medical History[1] Dx: (M33.20) Polymyositis (HCC) (primary encounter diagnosis) SUBJECTIVE: I don't understand what's happening to me Psychosocial: Patient Behaviors: (calm; cooperative; tearful; worried) Pt's goal for therapy: ADL / OOB activity Occupational Profile/PLOF: Type of Residence: Private Residence Living arrangement: Children (4) Home Structure: Basement;Two Story Steps to Enter: 4 Handrails: None Primary Bedroom: First Floor Primary Bathroom: First Floor Bathroom : Tub Equipment at Home: None Mobility: Driving;Independent Fallen Within 6 Mos: No Have Help at Home?: Yes, there is help at home now Level of Help Sufficient?: Yes Oxygen at Home: No Activity at Home: Active;Driving Who manages medications?: Self Vision: Corrected with glasses Hearing Exceptions: No impairment Cognition: Level of Consciousness-Adult: Responds to voice Cognition: (appears intact) Pain Assessment: Pain Assessment Pain Scale/Observation: 0-10 Pain Rating Score #1: 10 Sedation Level: 1-Awake and alert Pain Location : Generalized (everywhere) Non-Pharmacological Intervention: Rest RUE Assessment: AROM Shoulder flexion: ~130 degrees Elbow flexion: WFL, but pt in discomfort trying to complete Wrist flex/extension: WFL Strength & promotions manager: deferred d/t pain leading to tears LUE Assessment: AROM Shoulder flexion: ~100 degrees Elbow flexion: WFL, but decreased compared to RUE (pt in discomfort trying to complete) Wrist flex/extension: WFL Strength & promotions manager: deferred d/t pain leading to tears Sensation: RUE: WDL LUE: WDL Coordination: Serial Opposition: WDL bilaterally Basic ADL's: Upper Body Dressing: Maximal Assistance (to adjust gown up and over shoulders; difficulty managing tele and IV) Lower Body Dressing: total A to doff/don sequential leg pumps (donning brief deferred d/t pain) Toileting: Total Assistance (ed; RN report total A) Functional Mobility: Bed Mobility: Rolling: Minimum Assistance to Left;Requires Verbal Cues for Safety;Requires Verbal Cues for Technique (cues for body mechanics and hand placement on bed rail) Supine to Sit: Moderate Assistance;Requires Physical Cues for Safety;Requires Verbal Cues for Safety;Requires Verbal Cues for Technique;Requires Physical Cues for Technique (for body mechanics/hand placement and to elevate trunk) Sit to Supine: Minimal Assistance Transfers and Ambulation: Activity did not occur Oxygen Therapy: Room air Vitals: Activity Tolerance: Requires rest breaks;Requires seated rest breaks (observed fatigue after activity) Modified [place] Score Admission: 0 Current: 4 ASSESSMENT: Patient in bed upon the arrival of OT. Pt is reluctant but agreeable to session. Pt performed bed mobility with min - mod A. ADL assessment was performed; re toileting, UB and LB dressing, requiring the amount of assistance as noted above. Pt tearful following UE assessment. Therapeutic use of selfto comfort pt. Education provided on the plan going forward for OT/PT, including strengthening and adaptive strategies for her admission. Patient tolerated session fairly this date. Pt is limited during therapy session d/t decreased activity tolerance, pain, strength and ROM, and anxiety about moving. Pt in the bed at the end of session with call light and phone in reach with alarm on. All needs w ere met prior to therapist leaving the room. All lines, monitors, IV's, equipment in place and intact pre and post visit. RNNilsa, notified of patient's performance/location end of session. Educated patient/family in OT role/plan, ADL, functional transfer/mobility, dc plan Problem list: Decreased strength, decreased ROM, decreased endurance, decreased balance, impaired functional mobility, decreased coordination, impaired safety awareness, cognitive impairment, decreased knowledge of condition, decreased pain tolerance, need for family/caregiver training Functional limitation: Decreased independence with transfers; decreased ability to perform ADLs, decreased UE strength, decreased safety with functional mobility. Rationale for therapy: Patient will benefit from OT to address the above issues. Patient will be seen for: ADL retraining, functional transfers, balance, endurance, exercise. Refer to Plan of Care for OT goals. Refer to filed flow sheet for further details. If this is the last Occupational Therapy visit, this serves as the discharge summary. [id number] [1] No past medical history on file. Cosigned by Brooke Arguello OT at 12/06/2024 4:06 PM CDT Associated attestation - Brooke Arguello OT - 12/06/2024 4:06 PM CDT I have read and reviewed the OT human resource internship's note and discussed the management and plan of care with the OT human resource internship. I agree with the documented information and plan of care. This OT was present for the entire session this date and actively participated in the formation of the POC for the patient. DORI Craig/Ofelia [id number] * Ladarius Garcia - 12/06/2024 3:11 PM CDT PHYSICAL THERAPY GOAL: Problem: General Goal: LTG - Patient will Description: Perform all bed mobility SBA Outcome: Progressing Goal: LTG - Patient will Description: Perform sit<>stand Mod A Outcome: Progressing Cosigned by Hue Peter PT at 12/06/2024 3:13 PM CDT Associated attestation - Hue Peter PT - 12/06/2024 3:13 PM CDT I have read and reviewed the PT human resource internship's note and discussed the management and plan of care with the PT human resource internship I agree with the documented information and plan of care. This PT was present for the entire session this date and actively participated in the formation of the POC for the patient. Brissa Peter PT Ascom [id number] * Asuncion Mireles MD - 12/06/2024 2:55 PM CDT [facility] Medicine Progress Note [facility] Patient: Manisha Lundy Interval Update Patient reports improvement in bilateral lower extremity pain compared to yesterday Still having significant upper extremity pain and weakness Elevated CK, transaminitis noted Plan for EMG tomorrow Discussed with neurology Rheumatology will see the patient today Hospital Course Manisha Lundy is a 34 year old female w/PMHx significant for schizophrenia. Bipolar affective disorder, anxiety and migraines. She is S/P bariatric surgery on 11/10/24, and S/P lap cholecystectomy on 09/28/24. She presented with pain in both legs, arms and back for about 2 weeks, more so in the proximal muscles. The pain was also associated with weakness affecting her functionality. She does notreport fever, rash, cough, nausea or vomiting, shortness of breath or chest pain. The pain and weakness is symmetrical. She also reports not passing stool in the last week, there have not been any significant changes in her diet meanwhile. Her urine has appeared brown during the last 4 days. She reports no history of jaundice or scleral icterus denies ill contacts or recent travel. Mother had a history of stomach cancer and Sjogren's. She has not been doing strenuous exercise recently, does notreport trauma either. She also has a history of and tubal ligation. Her recent work-up showed CBC with no leukocytosis, preserved hb at 13.4 and platelets at 109. Metabolic panel was largely unremarkable, potassium was at 3.6. AST was markedly increased at 2613, ALT increased at 981, alkaline phosphatase was also raised 218. Urinalysis showed hematuria and pyuria as well as positive urine ketones 3+. She also got a test which was negative. Tylenol levels were less than 10. Gastroenterology was consulted at this visit and their opinion was that elevated liver enzymes are related to myopathy with high CK and is not most likely liver related. . Hepatitis screen was negative for Hep A IgM, Hep B core IgM, Hep C antibody and Hep B surface antigen. Urine opiate screen was positive. Objective Temp: [97.6 ??F (36.4 ??C)-98 ??F (36.7 ??C)] 98 ??F (36.7 ??C) Pulse: [60-82] 60 Resp: [18-23] 18 BP: (107-132)/(65-83) 112/70 Weight change: Intake/Output Summary (Last 24 hours) at 12/06/2024 1455 Last data filed at 12/06/2024 0536 Gross per 24 hour Intake 3136.33 ml Output 2000 ml Net 1136.33 ml Physical Exam General appearance: in mild Distress due to pain Head: normocephalic, without trauma Resp breath sounds bilaterally equal Heart: regular rhythm, normal S1 and S2, Abdomen: soft without mass, non-tender, nondistended Extremities: No lower extremity swelling, weakness and pain in bilateral upper and lower extremity. No sensory deficits Neurologic: mental status normal; alert and oriented X 3 Skin:No rashes noted Laboratory Data Recent Labs Component Name 12/05/24 0518 12/04/24 2046 WBC 5.7 6.0 HGB 11.2* 10.4* HCT 33.2* 31.0* PLTCOUNT 106* 111* MCV 90.0 90.6 No results for input(s): PT, INR, PTT in the last 06068 hours. Recent Labs Component Name 12/06/24 0733 12/05/24200212/05/24 0518 POTASSIUM 3.6 3.6 3.6 CO2 17* 18* 16* BUN 11 7 7 CREATININE 0.47* 0.51* 0.51* Recent Labs Component Name 12/06/24 0733 12/05/24200212/05/24 0518 CALCIUM 8.5 8.6 8.9 Recent Labs Component Name 12/06/24 0733 12/05/24200212/04/24 2046 ALKPHOS 142 157* 137 AST 1,200* 1,510* 1,538* ALT 915* 960* 893* No results for input(s): CKTOTAL, CKMBCK2, TROPONINI in the last 83692 hours. No results for input(s): VANCORNDM, VANCTROUGH in the last 50729 hours. Microbiology Results (Displays last 21 days for this encounter ONLY) Procedure Component Value - Date/Time CULTURE URINE [[id number]] Collected: 12/05/24 0751 Lab Status: In process Specimen: Urine Clean Catch Updated: 12/05/24 1123 Imaging No results found. Assessment and Plan The patient's active hospital problems include: Polymyositis (HCC) (POA: Yes) Transaminitis (POA: Yes) Rhabdomyolysis (POA: Yes) Areflexia (POA: Yes) Lumbar spinal stenosis (POA: Yes) Constipation (POA: Yes) Iron deficiency anemia (POA: Yes) Hypokalemia (POA: Yes) Plan: # Rapidly progressing bilateral upper and lower extremity proximal muscle weakness with pain Areflexia noted, no paresthesias Symptoms ongoing for 2 weeks started with back pain Rule out polymyositis, GBS Discussed with neurology Plan for IVIG + steroids. 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 # Transaminitis Viral hepatitis panel negative Transaminitis secondary to rhabdomyolysis Continue to monitor CMP twice daily #Constipation: Last bowel movement a week ago per patient , worsened by immobility and poor appetite Started on aggressive bowel regimen, MiraLax, senna docusate, Dulcolax If bowel regimen does not work needs enema #Normocytic anemia #Iron deficiency: Started on Venofer #Pediculosis capitis Started on Nix kit, discussed with pharmacy Diet: DIET REGULAR DVT Prophylaxis: SCDs Code Status: Full Code Disposition: PTOT to decide on disposition Estimated Date of Discharge: Needs continued hospitalization, acutely ill Time spent: 35 minutes, including a total of face to face time, family discussion, reviewing nursing and merchandising consultant notes, labs and imaging, discussing/coordinating care with the care team, and documentation. Asuncion Mireles MD 12/06/2024 2:55 PM * Ladarius Garcia - 12/06/2024 2:20 PM CDT PHYSICAL THERAPY INITIAL EVALUATION Physical Therapy Evaluation complete. See Filed Flowsheet under Summary for details. Patient OK to be seen for evaluation per nursing. RECOMMENDATIONS/PLAN: Pt will benefit from continued physical therapy while hospitalized. Discharge Planning is a multi-disciplinary approach. Recommended Discharge Disposition is based on the clinician's clinical decision making regarding the patient's functional, physiological and social status at time of therapy assessment. PT Discharge Recommendations: Patient would benefit from intensive 3-hour multidisciplinary therapy This recommendation is made due to ongoing intensive PT functional needs: patient has the need for more than one skilled therapy service;not at baseline due to impaired ability to complete ADL's;functional mobility is significantly below baseline;likely to return to the community at discharge with support system;patient has the ability to progress and demonstrate measurable gains as a result of skilled therapy;patient demonstrates a significant functional decline and would benefit from skilled therapy intervention to restore function Recommended Transportation Method: To be Determined PPE worn by staff: gloves;hair net;shoe covers;gown - disposable PPE worn by patient: gown - patient, clean;socks - clean AM-PAC Basic mobility score for this patient is Mobility Raw Score:: 9 The AM-PAC 6-clicks Basic Mobility TM is a system for measuring activity limitations based on WorldHealth Organization's International Classification of functioning, Disability and Health (ICF); designed for use across patient diagnoses and conditions, care settings; assess basic movement and physical mobility activities. 1=total assist/unable to perform, 4= independent/no difficulty performing;lower total scores indicate more difficulty moving about. SUBJECTIVE: History of Present Illness or Injury:Manisha Lundy is a 34 year old female who presents to PT today with the following diagnoses: 1. Polymyositis (HCC) Precautions: fall risk, contact precautions Subjective: I just want to know what's wrong with me Patient/ Family stated goal: Agreeable to OOB activity Home Situation: Home Situation Type of Residence: Private Residence Living arrangement: Children (4) Steps to Enter: 4 Handrails: None Home Structure: Basement;Two Story Primary Bedroom: First Floor Primary Bathroom: First Floor Bathroom : Tub Equipment at Home: None Prior Level of Functioning: Prior Level of Function Mobility: Driving;Independent; pt reports she was independent with all ADLs/IADLS DE ALCOHOLIZER. Fallen Within 6 Mos: No Have Help at Home?: Yes, there is help at home now Who assists you at home?: Friends/Family available to assist if needed. Level of Help Sufficient?: Yes Oxygen at Home: No Activity at Home: Active;Driving Vision: Corrected with glasses Hearing Exceptions: No impairment Who manages medications?: Self Problem list decreased strength, decreased ROM, decreased endurance, decreased balance, decreased coordination Functional limitation: Decreased independence with transfers and gait; decreased safety with functional mobility. Rationale for therapy: Patient will benefit from PT to address the above issues. Patient will be seen for: exercise, transfers, gait training, balance, and endurance. Objective: Patient agreeable to participate in therapy assessment Strength: Assessed in Sitting Right Left Knee Ext <3/5 <3/5 Ankle DF <3/5 <3/5 Ankle PF <3/5 <3/5 Sensation: Grossly intact and symmetrical BLE Bed Mobility: Rolling: Minimum Assistance to Left;Requires Verbal Cues for Safety;Requires Verbal Cues for Technique Supine to Sit: Moderate Assistance;Requires Physical Cues for Safety;Requires Verbal Cues for Safety;Requires Verbal Cues for Technique;Requires Physical Cues for Technique Sit to Supine: Minimal Assistance Treatment this date: Pt presents in bed, agreeable to PT eval. Pt rolls left in bed with minimal assistance to initiate the roll. Pt completes sup>sit with modA for trunk elevation and legs. Pt was able to maintain static sitting at EOB with SBA for safety while completing objective examination despite reports of pain. Pt unable to perform sit<>stand transfer or ambulate d/t reports of pain and weakness throughout the body. Patient was able to return to supine with minimal assistance to roll the hips onto the bed. Patient becomes tearful about CLOF. Call light and phone left nearby. Denies further needs at this time. Refer to Plan of Care for PT goals. Assessment/Plan for future sessions: Pt tolerates session fair with primary limitation of pain, decreased strength and impaired endurance. Continue acute care PT for duration of stay, with focus on improving activity tolerance, increasing BLE strength, and maximizing independence for d/c. If this is the last Physical Therapy visit, this serves as the discharge summary. All vitals stablethroughout visit; All lines, monitors, IV's, equipment in place and intact pre and post visit. ENDER [facility] Ascom #[id number] Cosigned by Hue Peter PT at 12/06/2024 3:13 PM CDT Associated attestation - Hue Peter PT - 12/06/2024 3:13 PM CDT I have read and reviewed the PT human resource internship's note and discussed the management and plan of care with the PT human resource internship I agree with the documented information and plan of care. This PT was present for the entire session this date and actively participated in the formation of the POC for the patient. Brissa Peter PT Ascom [id number] * Tessie Contreras PA-C - 12/06/2024 9:59 AM CDT Neurology Progress Note Hospital Day: 2 Chief Complaint: Weakness Subjective: Manisha Lundy presented with 2 weeks of muscle pain and extremity weakness. She reports mild improvement in lower extremity pain today. No bulbar weakness, shortness of breath, headache, sensory deficit. Objective: BP 112/70 (BP Location: Right arm, Patient Position: Lying) Pulse 60 Temp 98 ??F (36.7 ??C) (Oral) Resp 18 Ht 1.549 m (5' 1) Wt 95.3 kg (210 lb) SpO2 97% General: Well-developed, well-nourished Cardiac: symmetric carotid pulses Lungs: Clear Extremities: No edema Neurological Exam: Mental status: Alert and oriented x 3. Affect is normal. Recent and remote memory are normal. Attention and concentration are normal. Speech is fluent and comprehension is intact. Fund of knowledge is good. Cranial Nerves: CN II: Visual acuity is full without visual field cut. Pupils equal and reactive to light. CN III, IV, : Extraocular movements are full. CN V: Facial sensation is intact. CN VII: Normal facial strength and tone. CN VIII: Hearing is intact to conversation. CN XI, X: Palate elevates symmetrically, uvula midline CN XI: Normal SCM and trapezius strength CN XII: Tongue midline without atrophy Motor: Proximal greater than distal weakness in all extremities. 3-/5 in bilat proximal upper and lower extremities, and 4/5 distally. Tenderness to palpation in all muscle groups Bulk and tone are normal. No tremor or abnormal movement seen. Sensory: Intact to light touch Reflexes: Diminished to areflexic brachioradialis, biceps, triceps, knees, and ankles. Babinski responses are flexor bilaterally. Coordination: Normal FNF bilat Gait and Station: Sat EOB with PT Past Medical History[1] Past Surgical History[2] COMPREHENSIVE REVIEW OF SYSTEMS: General: No recent fevers Eyes: No vision loss or diplopia ENT: No hearing loss Cardiac: No chest pain Respiratory: No shortness of breath GI: No bloody stools : No hematuria Skin: No rash Heme: Denies easy bruising Psych: Denies anxiety or depression Endocrine: Denies hair loss Musc: No arthralgias Current Medications: Medications[3] Labs Reviewed Recent Labs Component Name 12/06/2473212/05/24200212/05/24 0518 SODIUM 141 141 140 POTASSIUM 3.6 3.6 3.6 CHLORIDE 115* 114* 113* CO2 17* 18* 16* BUN 11 7 7 CREATININE 0.47* 0.51* 0.51* GLUCOSE 136* 132* 95 CALCIUM 8.5 8.6 8.9 Recent Labs Component Name 12/06/2473212/05/24200212/04/246 TPROT 5.7* 5.9* 5.4* ALBUMIN 2.6* 2.6* 2.6* ALKPHOS 142 157* 137 ALT 915* 960* 893* AST 1,200* 1,510* 1,538* TBIL 0.1* 0.2 0.2 Recent Labs Component Name 12/05/24 0518 12/04/242045 WBC 5.7 6.0 HGB 11.2* 10.4* HCT 33.2* 31.0* PLTCOUNT 106* 111* No results for input(s): PTT, INR in the last 43968 hours. Recent Labs Component Name 12/06/24 0733 12/05/24200212/05/24 0718 CK 37,991* >42,670* >42,670* Recent Labs Component Name 12/04/242045 TSH 1.295 No results for input(s): AMMONIA, LACTICACID in the last 52720 hours. Recent Labs Component Name 12/06/24 0903 12/06/24 0733 SEDRATE 44* - CRP - 8.88* No results for input(s): BARBITURATUR, BENZODIAZUR, THCUR, COCAINEUR, FENTANYL, METHADONEUR, OPIATESUR, PCPUR in the last 40447 hours. Recent Labs Component Name 12/05/24 0751 COLORUA Yellow CLARITYUA Clear SPECGRAVUA 1.008 PHUA 6.0 PROTEINUA 1+* BLOODUA 3+* LEUKOCYTEUA 75 LALITO/uL* NITRITEUA Negative GLUCOSEUA Normal KETONEUA 2+* BILIRUBINUA Negative UROBILINUA 3.0* WBCUA 11-20* RBCUA 6-10* No results for input(s): LDLCALC, LDLDIRECT, HGBA1C in the last 98498 hours. Imaging Reviewed No results found. Assessment: 1) Rapidly progressive weakness and pain of upper and lower extremities. Concern for polymyositis. GBS remains in differential given generalized areflexia 2) Rhabdomyolysis 3) Elevated LFTs 4) Elevated ESR, CRP Plan: - EMG planned to be done at the bedside - Continue Solumedrol 250mg Q6H - Follow pending VINICIUS, B1, B12, myositis antibody panel, motor sensory neuropathy panel - Appreciate rheumatology recommendation - Monitoring or respiratory status - PT/OT Discussed treatment plan with primary team and RN. Assessment and plan discussed with Dr. Marr. Tessie Contreras PA-C [facility] [address], [address] [place] [address] (Office) [phone] (FAX) [1] No past medical history on file. [2] No past surgical history on file. [3] Current Facility-Administered Medications Medication 0.9% NaCl infusion 0.9% NaCl injection 3 mL And 0.9% NaCl injection 1-10 mL bisacodyl (Dulcolax) suppository 10 mg HYDROmorphone (Dilaudid) injection 0.4 mg iron sucrose (Venofer) 300 mg in NaCl IV 0.9 % 285 mL IVPB melatonin tablet 3 mg methylPREDNISolone sod succ (SOLU-Medrol) 250 mg in NaCl IV 0.9 % 50 mL bolus ondansetron (Zofran) injection 4 mg oxyCODONE (immediate release) (Roxicodone) tablet 5 mg polyethylene glycol 3350 (Miralax) packet 17 g senna-docusate (Senokot-S) tablet 1 tablet Cosigned by Alec Marr MD at 12/06/2024 4:11 PM CDT Associated attestation - Alec Marr MD - 12/06/2024 4:11 PM CDT Collaborating Physician Supervisory Note Patient was evaluated and cared for in conjunction with an Advanced Practice Provider. I personallyexamined the patient and reviewed the chart and all pertinent data including imaging and labs. Casediscussed with MAX Contreras. Please see her note for complete history, physical, testing results and agreed upon plan of care for the patient. The patient continues to complain of diffuse muscle pain and has proximal greater than distal muscle weakness. So far no improvement steroids. On exam she is diffusely areflexic with 4/5 strength bilateral arm abduction and bilateral iliopsoas. Impression: Myopathy; inflammatory versus postinfectious etiology Rhabdomyolysis, elevated LFTs, elevated ESR and CRP Plan: Continue IV methylprednisone to 50 mg q.6 EMG Check VINICIUS, B1, B12, myositis antibody panel and sensory motor neuropathy panel Rheumatology evaluation Alec Marr MD Diplomate, [place] [employer] and Neurology (ABPN) [facility] [address], [address] [place] [address] (office) [phone] (FAX) * Sukumar Martell - 12/05/2024 2:44 PM CDT 12/05/24 1400 Visit Type Assessment Date 12/05/24 Power Transformer Inspector Visiting Patient NK Pastoral Care Reason for Visit Order Response Encounter Type Patient Spiritual History Belief System Significant Community Very Involved in [place] Community;Family and Friends Support Spiritual Assessment Spiritual Assessment Exploring [place]/Health Issues;Appears Discouraged/Sad;Seems Nervous/Anxious;Tearful Interventions Pastoral Care Conversation;Reflective Listening;Prayer;Silent Presence;Support Support Encouragement;Coping Plan/Outcome Plan Continue Support Outcomes Expresses Feeling [place];Feelings/Concerns Expressed;Awareness of Power Transformer Inspector Availability;Hope Expressed Pt feels overwhelmed, concerned about her health and family, and expressed needing prayers and support. Sukumar Martell, Fleet Administrative Assistant ASCOM: [id number] Outside: [phone] For more urgent needs, please page at the appropriate pager number below. [place] Pastoral Care pager - Call [phone] (Mon-Fri: 7AM - 4PM and Sun 7AM - 3PM). Pastoral Care merchandising execution associate pager - Call [phone] (outside of the times listed above) and enter a 10 digit call back number. Please allow the merchandising execution associate outside upholsterer 30 minutes to arrive to the hospital. * Asuncion Mireles MD - 12/05/2024 1:45 PM CDT [facility] Medicine Progress Note [facility] Patient: Manisha Lundy Interval Update Seen and examined at bedside. Patient complains of more proximal bilateral upper and lower extremity weakness for about 2 weeks gradually worsening Significantly elevated liver enzymes, CK noted Discussed with Neurology plan for IVIG +/-steroids Also needs nerve conduction studies Muscle biopsy later once rhabdomyolysis improves Hospital Course Manisha Lundy is a 34 year old female w/PMHx significant for schizophrenia. Bipolar affective disorder, anxiety and migraines. She is S/P bariatric surgery on 11/10/24, and S/P lap cholecystectomy on 09/28/24. She presented with pain in both legs, arms and back for about 2 weeks, more so in the proximal muscles. The pain was also associated with weakness affecting her functionality. She does notreport fever, rash, cough, nausea or vomiting, shortness of breath or chest pain. The pain and weakness is symmetrical. She also reports not passing stool in the last week, there have not been any significant changes in her diet meanwhile. Her urine has appeared brown during the last 4 days. She reports no history of jaundice or scleral icterus denies ill contacts or recent travel. Mother had a history of stomach cancer and Sjogren's. She has not been doing strenuous exercise recently, does notreport trauma either. She also has a history of and tubal ligation. Her recent work-up showed CBC with no leukocytosis, preserved hb at 13.4 and platelets at 109. Metabolic panel was largely unremarkable, potassium was at 3.6. AST was markedly increased at 2613, ALT increased at 981, alkaline phosphatase was also raised 218. Urinalysis showed hematuria and pyuria as well as positive urine ketones 3+. She also got a test which was negative. Tylenol levels were less than 10. Gastroenterology was consulted at this visit and their opinion was that elevated liver enzymes are related to myopathy with high CK and is not most likely liver related. . Hepatitis screen was negative for Hep A IgM, Hep B core IgM, Hep C antibody and Hep B surface antigen. Urine opiate screen was positive. Objective Temp: [97.8 ??F (36.6 ??C)-99.1 ??F (37.3 ??C)] 98.5 ??F (36.9 ??C) Pulse: [80-116] 116 Resp: [20-22] 20 BP: (103-121)/(70-77) 116/76 Weight change: Intake/Output Summary (Last 24 hours) at 12/05/2024 1345 Last data filed at 12/05/2024 0333 Gross per 24 hour Intake 600 ml Output -- Net 600 ml Physical Exam General appearance: in Distress due to pain Head: normocephalic, without trauma Resp breath sounds bilaterally equal Heart: regular rhythm, normal S1 and S2, Abdomen: soft without mass, non-tender, nondistended Extremities: No lower extremity swelling, weakness in bilateral upper and lower extremity. No sensory deficits Neurologic: mental status normal; alert and oriented X 3; Skin:No rashes noted Laboratory Data Recent Labs Component Name 12/05/24 0518 12/04/242045 WBC 5.7 6.0 HGB 11.2* 10.4* HCT 33.2* 31.0* PLTCOUNT 106* 111* MCV 90.0 90.6 No results for input(s): PT, INR, PTT in the last 38378 hours. Recent Labs Component Name 12/05/2418 12/04/242045 POTASSIUM 3.6 3.1* CO2 16* 19* BUN 7 9 CREATININE 0.51* 0.52* Recent Labs Component Name 12/05/24 0518 12/04/242045 CALCIUM 8.9 8.3* Recent Labs Component Name 12/04/242045 ALKPHOS 137 AST 1,538* ALT 893* No results for input(s): CKTOTAL, CKMBCK2, TROPONINI in the last 29297 hours. No results for input(s): [facility] in the last 80193 hours. Microbiology Results (Displays last 21 days for this encounter ONLY) Procedure Component Value - Date/Time CULTURE URINE [[id number]] Collected: 12/05/24 0751 Lab Status: In process Specimen: Urine Clean Catch Updated: 12/05/24 1123 Imaging No results found. Assessment and Plan The patient's active hospital problems include: Polymyositis (HCC) (POA: Yes) Transaminitis (POA: Yes) Rhabdomyolysis (POA: Yes) Areflexia (POA: Yes) Lumbar spinal stenosis (POA: Yes) Constipation (POA: Yes) Iron deficiency anemia (POA: Yes) Hypokalemia (POA: Yes) Plan: #Bilateral upper and lower extremity proximal muscle weakness Areflexia noted, no paresthesias Symptoms ongoing for 2 weeks started with back pain Rule out polymyositis, GBS Discussed with neurologist Plan for IVIG +/- steroids Needs nerve conduction studies, eventual muscle biopsy MRI Lumbar spine shows L3-L4, L4-L5 spinal stenosis #Rhabdomyolysis #Non anion gap metabolic acidosis CK greater than 42 K Continue IV hydration normal saline at 200 cc an hour Trend CK Rhabdo likely due to inflammatory myositis # Transaminitis Viral hepatitis panel negative Transaminitis secondary to rhabdomyolysis Continue to monitor CMP twice daily #Constipation: Last bowel movement a week ago per patient , worsened by immobility Started on aggressive bowel regimen, MiraLax, senna docusate, Dulcolax #Normocytic anemia #Iron deficiency: Started on Venofer Diet: DIET REGULAR DVT Prophylaxis: Code Status: Full Code Disposition: Coming from home, needs eventual PT/OT to decide disposition Estimated Date of Discharge: TBD Time spent: 35 minutes, including a total of face to face time, family discussion, reviewing nursing and merchandising consultant notes, labs and imaging, discussing/coordinating care with the care team, and documentation. Asuncion Mireles MD 12/05/2024 1:45 PM * Kay Yost RN - 12/05/2024 5:40 AM CDT Problem: Pain/Discomfort Goal: Patient exhibits reduced pain/discomfort as evidenced by pain scores Outcome: Progressing Goal: Patient uses pharmacological and non-pharmacological pain management strategies. Outcome: Progressing Goal: Patient verbalizes acceptable level of pain relief and ability to engage in desired activity. Outcome: Progressing Patient direct admit from OSH evening of 12/04/2024, labs obtained, need UA, having severe constipation per patient last BM was on 11/27/2024, had weight loss surgery at OSH on 11/10/2024. * Kay Yost RN - 12/05/2024 4:46 AM CDT Skin Cosign On Admission: Room #: 405 Admission Date:12/04/2024. Primary RN:Nya PHAM Skin Assessment: Admission, no skin issues/concerns. Skin Exceptions: None. Cosigner: Melva PHAM. Cosigned by Melva Solis RN at 12/05/2024 4:54 AM CDT documented in this encounter H&P Notes * Cisco Mabry MD - 12/04/2024 9:31 PM CDT Internal Medicine Resident History and Physical Admission Date: 12/04/2024 Room Number: 405 Supervising resident: Dr. Wright Chief complaint: Muscle pain/weakness History of Present Illness: Manisha Lundy is a 34 year old female w/PMHx significant for schizophrenia. Bipolar affective disorder, anxiety and migraines. She is S/P bariatric surgery on 11/10/24, and S/P lap cholecystectomy on 09/28/24. She presented with pain in both legs, arms and back for about 2 weeks, more so in the proximal muscles. The pain was also associated with weakness affecting herfunctionality. She does not report fever, rash, cough, nausea or vomiting, shortness of breath or chest pain. The pain and weakness is symmetrical. She also reports not passing stool in the last week, there have not been any significant changes in her diet meanwhile. Her urine has appeared brown during the last 4 days. She reports no history of jaundice or scleral icterus denies ill contacts or recent travel. Mother had a history of stomach cancer and Sjogren's. She has not been doing strenuousexercise recently, does not report trauma either. She also has a history of and tubal liga tion. Her recent work-up showed CBC with no leukocytosis, preserved hb at 13.4 and platelets at 109. Metabolic panel was largely unremarkable, potassium was at 3.6. AST was markedly increased at 2613, ALT increased at 981, alkaline phosphatase was also raised 218. Urinalysis showed hematuria and pyuria as well as positive urine ketones 3+. She also got a test which was negative. Tylenol levels were less than 10. Gastroenterology was consulted at this visit and their opinion was that elevated liver enzymes are related to myopathy with high CK and is not most likely liver related. . Hepatitis screen was negative for Hep A IgM, Hep B core IgM, Hep C antibody and Hep B surface antigen. Urine opiate screen was positive. Review of Systems Constitutional: Negative. HENT: Negative. Eyes: Negative. Respiratory: Negative. Cardiovascular: Negative. Gastrointestinal: Negative. Genitourinary: Negative. Musculoskeletal: Positive for back pain and myalgias. Skin: Negative. Neurological: Negative. Endo/Heme/Allergies: Negative. Psychiatric/Behavioral: Negative. History: Past Medical History[1] Past Surgical History[2] Family History[3] Social History Occupational History Not on file Tobacco Use Smoking status: Not on file Smokeless tobacco: Not on file Substance and Sexual Activity Alcohol use: Not on file Drug use: Not on file Sexual activity: Not on file Allergies: Allergies[4] Home Medications: Medications Ordered Prior to Encounter[5] Objective: Temp: [99.1 ??F (37.3 ??C)] 99.1 ??F (37.3 ??C) Pulse: [90] 90 Resp: [20] 20 BP: (110)/(70) 110/70 Physical Exam Constitutional: Appearance: Normal appearance. She is obese. Cardiovascular: Rate and Rhythm: Normal rate and regular rhythm. Pulses: Normal pulses. Heart sounds: Normal heart sounds. Pulmonary: Breath sounds: Normal breath sounds. Abdominal: General: Abdomen is flat. Palpations: Abdomen is soft. Musculoskeletal: General: Normal range of motion. Neurological: General: No focal deficit present. Mental Status: She is oriented to person, place, and time. Motor: Weakness present. Comments: -Power was 4/5 in all four limbs. Psychiatric: Mood and Affect: Mood normal. Labs: -CK level: 42,670 -AST: 1538 -ALT: 893 -CO2: 19 -GGT: 45 -Hb: 10.4 -Iron: 22 -LDH: 2169 Microbiology: Imaging: - CT abdomen pelvis done on 11/2024 showed no acute abnormalities -MRI abdomen was also done on 12/03/2024 on small amount of pneumobilia in the right hepatic lobe likely related to prior cholecystectomy. 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 -Continue IV hydration with normal saline. -Trend CK levels q12h -Continue to monitor rfp, ensure adequate urine output -Checking TSH, myositis antibody panel -Neurology to be contacted in the morning -Check Thiamine levels to rule out nutritional cause rhabdomyolysis. #Elevated LFTs: Viral Hepatitis panel was negative at OSH -Checking gamma GT -Elevations likely related to Rhabdomyolysis -Continue to monitor #Constipation: -Continue Miralax. #Normocytic anemia #Iron deficiency: -Monitor Hb, transfuse if Hb less than 7. DVT prophylaxis - SCD Diet - Regular Code status- Full Disposition plan - Pending medical assessment, discharge in 1-2 days. Risk Factors for Mortality Present at Time of Admission Discussed the plan with IM attending. Zeeshanu MD Clotilde [1] No past medical history on file. [2] No past surgical history on file. [3] No family history on file. [4] Not on File [5] No current facility-administered medications on file prior to encounter. Current Outpatient Medications on File Prior to Encounter Medication Sig Dispense Refill cyclobenzaprine (Flexeril) 10 MG tablet Take 1 (one) tablet by mouth at bedtime Back pain oxyCODONE-acetaminophen (Percocet) 5-325 MG tablet Take 1 (one) tablet by mouth every 8 hours as needed for Pain (-Takes it at home for the pain) PARoxetine (Paxil) 40 MG tablet Take 1 (one) tablet by mouth once daily -Takes it for anxiety topiramate (Topamax) 100 MG tablet Take 1 (one) tablet by mouth once daily - Takes it for migraine traZODone (Desyrel) 50 MG tablet Take 1 (one) tablet by mouth at bedtime -for insomnia Cosigned by Crow Ngo MD at 12/05/2024 11:05 PM CDT Associated attestation - Crow Ngo MD - 12/05/2024 11:05 PM CDT I have verified the documentation of the resident including all history, exam, and medical decision-making details. I have personally reviewed the data to support my medical decision-making as outlined in their note. I agree with their assessment and plan other than any corrections/additions as documented below. Corrections/Additions: - None Date of Service: 12/04/2024 Polymyositis (HCC) Transaminitis Rhabdomyolysis Areflexia Lumbar spinal stenosis Constipation Iron deficiency anemia Hypokalemia Huber Maria MD documented in this encounter Consult Notes * Sanjuana Steele MD - 12/06/2024 5:34 PM CDTAssociated Order(s): IP CONSULT TO RHEUMATOLOGY Rheumatology Consult Name: Manisha Lundy Age: [age] year old Race: Unavailable Sex: female Attending: Asuncion Mireles MD Admission Date: 12/04/2024 Discharge Date: Code Status: Full Code History of Present Illness 34-year-old adult female with past with past medical history of who obesity status post bariatric surgery November 10, 2024, cholecystectomy September 28, 2024 bipolar affective disorder, schizophrenia, anxiety, was admitted for rhabdomyolysis. (VINICIUS-) Patient had sudden onset weakness and pain in all extremity 2 weeks ago. Symptoms worsen progressively. Labs show very high CK level, transaminitis, elevated ESR and CRP, negative VINICIUS. Patient has been receiving IV fluid and Solu-Medrol high-dose for the last couple of days. CK and AST decreasing. R eports feeling about the same. Complains often diffuse musculoskeletal pain and weakness. Worked with physical therapy. Has difficulty standing walking. Patient complains of numbness in bilateral feet that started today. Patient denies recent travel, medication change, infection or flu-like symptoms, fever, rash, oral ulcers, photosensitivity, chest pain, shortness of breath, dysphagia, Raynaud's. Prior to this episode there was no chronic joint pain, stiffness, muscle weakness or pain. Has 4 children. Status post tubal ligation. Denies history of thrombosis. Denies family history of autoimmune disease. According to medical record, mother with stomach cancer and Sjogren syndrome. History Past Medical History[1] Past Surgical History[2] Social History Socioeconomic History Marital status: Single Spouse name: Not on file Number of children: Not on file Years of education: Not on file Highest education level: Not on file Occupational History Not on file Tobacco Use Smoking status: Never Passive exposure: Never Smokeless tobacco: Never Substance and Sexual Activity Alcohol use: Never Drug use: Not Currently Types: Marijuana Comment: used to smoke. Sexual activity: Not on file Other Topics Concern Not on file Social History Narrative Not on file Social Drivers of Health Financial Resource Strain: Low Risk (12/04/2024) Overall Financial Resource Strain (CARDIA) Difficulty of Paying Living Expenses: Not very hard Food Insecurity: No Food Insecurity (12/04/2024) Hunger Vital Sign Worried About Running Out of Food in the Last Year: Never true Ran Out of Food in the Last Year: Never true Transportation Needs: No Transportation Needs (12/04/2024) PRAPARE - Transportation Lack of Transportation (Medical): No Lack of Transportation (Non-Medical): No Stress: No Stress Concern Present (12/04/2024) [employer] - Occupational Stress Questionnaire Feeling of Stress : Only a little Housing Stability: Unknown (12/04/2024) Housing Stability Vital Sign Unable to Pay for Housing in the Last Year: No Number of Times Moved in the Last Year: Not on file Homeless in the Last Year: No Allergies to Medications and Reactions Allergies[3] Home Medications: Prior to Admission medications Medication Sig Start Date End Date Taking? Authorizing Provider cyclobenzaprine (Flexeril) 10 MG tablet Take 1 (one) tablet by mouth at bedtime Back pain 11/28/24 Yes Provider, MD Kamar oxyCODONE-acetaminophen (Percocet) 5-325 MG tablet Take 1 (one) tablet by mouth every 8 hours as needed for Pain (-Takes it at home for the pain) 10/01/24 Yes ProviderKamar MD PARoxetine (Paxil) 40 MG tablet Take 1 (one) tablet by mouth once daily -Takes it for anxiety 09/26/24 Yes Kamar Thompson MD topiramate (Topamax) 100 MG tablet Take 1 (one) tablet by mouth once daily - Takes it for migraine 09/26/24 Yes Kamar Thompson MD traZODone (Desyrel) 50 MG tablet Take 1 (one) tablet by mouth at bedtime -for insomnia 09/26/24 Yes ProviderKamar MD Review of Systems A comprehensive 10 system ROS was reviewed. Pertinent positives and negatives are included in HPI or PMH. The remainder of the 10 system ROS was negative. Temp (24hrs), Av ??F (36.7 ??C), Min:97.6 ??F (36.4 ??C), Max:98.4 ??F (36.9 ??C) Vitals: 12/05/24 2334 12/06/24 0353 12/06/24 0745 12/06/242006 BP: 125/75 132/83 112/70 118/80 Pulse: 65 74 60 58 Resp: Temp: 97.6 ??F (36.4 ??C) 98 ??F (36.7 ??C) 98 ??F (36.7 ??C) 98.4 ??F (36.9 ??C) SpO2: 94% 94% 97% 94% Weight: Height: Body mass index is 39.68 kg/m??. Height: 154.9 cm (5' 1) Weight: 95.3 kg (210 lb) General: in no acute distress. HEENT: anicteric sclera, no conjunctival injection, PERRL, no oral ulcers. Neck: supple, nontender, no lymphadenopathy Chest: nontender. Abdomen: soft, nontender Extremities: no peripheral swelling, clubbing or cyanosis Skin: no rash MSK: diffuse tenderness in hands, wrists, arms, legs. Sensation of b/l feet decreased. 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 Cannot lift arms or legs off the bed. Lab/Other Information Recent Labs Component Name 12/05/24 0518 12/04/242045 WBC 5.7 6.0 HGB 11.2* 10.4* HCT 33.2* 31.0* PLTCOUNT 106* 111* Recent Labs Component Name 12/06/24 0733 SODIUM 141 POTASSIUM 3.6 CHLORIDE 115* CO2 17* BUN 11 CREATININE 0.47* GLUCOSE 136* CALCIUM 8.5 ALBUMIN 2.6* ALKPHOS 142 ALT 915* AST 1,200* TBIL 0.1* TPROT 5.7* EGFR >90 No results for input(s): CDIFFTOXINAB in the last 31516 hours. Hospital Problems 34 year old adult female: Rhabdomyolysis Recent surgeries -- laparoscopic gastric sleeve and hiatal hernia repair 11/10/2024 -- cholecystectomy 09/28/2024 (VINICIUS-) Patient with 2-week history of acute onset rhabdomyolysis, unclear cause. Traumatic vs nontraumatic. Kidney function is normal. No history of chronic symptoms suggestive of underlying systemic autoimmune disease including inflammatory myopathy. VINICIUS negative. More serologies are pending. Complained of new numbness in both feet today. Neurology on board. Will have NCS/EMG tomorrow. Can consider muscle biopsy in the quadriceps. On solumedrol, managed by neurology. IVIG is being considered. Supportive management per the primary team. Sanjuana Steele MD [1] No past medical history on file. [2] No past surgical history on file. [3] No Known Allergies * Salomón Winter MD - 12/05/2024 10:08 AM CDTAssociated Order(s): IP CONSULT TO NEUROLOGY Chief Complain: severe progression of weakness x 2 weeks Came with friend Narrative : 2 weeks ago the lower back and legs and shoudler hurting and every day worse and worse.Went to [place] and Blood work came back normal and sent home. Friday went to [place] and checked back and sent home with pain pills.I was crying in pain. Friday saw PCp he sent me to [place] and have MRI of lower back and , when going home called me that I had disc herniation and relax. Friday he asked me to go back to [facility]. When I went to [place] My MRI was fine. My urine was red from blood. Doctor asked me to see neurlogist. Then tarnsferred. My legs arm are wekk. No dysphagia nor dysrthria Had gallstonre and weight loss surgery in Medically appropriate Exam: BP 116/76 (BP Location: Right arm) Pulse (!) 116 Temp 98.5 ??F (36.9 ??C) (Oral) Resp 20 Ht1.549 m (5' 1) Wt 95.3 kg (210 lb) SpO2 97% Skin : Warm and moist, no rash. Normal Carotids Normal language and orientation Neck Flex/ext 5/5 Normal EOM and OO Proximal >>>distal weakness in uppers and lowers. Prox 2-3/5 distal 4/5 TA and GM 4 Generalized areflexia Normal sensation Muscle tendernerss Trunkal weakness++ PL withdraw/ticklish Classifying exam findings None except Marked[x] []Neuropathic sensory-distal graded sensory loss []Myelopathic-spasticity,sensory level []Radiculopathic -dermatomal []Extrapyramidal -rigidity,nehemias and rest tremor []Cerebellar sydnrome-FNF CAN Nuystagmus []Cognitive abnormality-recall and clock draw []Orthostatic vitals []ALS-fasiculations and Brisk DTRS []Radiculopathic -dermatomal []Tremors action or rest Labs,Images,Diagnostic and medical records: I independently reviewed and interpreted labs & reports showing -CMP elevated chloride normal ferritin normal haptoglobin elevated LDH CK more than 42,000, CBC mild anemia and 80 through tinea pending myositis antibody panel VINICIUS screen pending B1 pain normal TSH Reviewed clinical notes from Dr. Carter and discussed with her as well. I reviewed past medical history, family history, social history, medication and allergies in the epic. Diagnosis: Rapidly progressive painful weakness of upper lower extremities for 2 weeks making her bed-bound Muscle pain/lower back pain Generalized areflexia No sensory loss Plan: [facility] at [facility].LÁZARO Blue, neurologist who saw the patient he thinks polymyositis. Discussed with Dr. Carter and recommendation to start both IV steroid and IVIG EMG study on Friday-ordered will coordinate with neurology team Consult Rheumatology, polymyositis may need collaboration. If the patient has no evidence of GBS, further workup will need muscle biopsy from quadriceps. May need MRI of thighs before that. Closely monitored for dysphagia and shortness of breathing. Obtain ABG Two weeks history of progressive painful weakness involving lower extremities than uppers, dominantproximal, now involving trunk, CK more than 42,000, myoglobinuria, preceding bariatric surgery but no infection. No rash. No history of autoimmune disorders. Examination confirms proximal more than distal weakness in both upper lower extremities as well as truncal weakness, no involvement of cranial nerves or muscles, normal neck flexor extensor. Normal sensory examination. Patient has generalized areflexia, I am expecting hyper on normal reflexia in polymyositis. Rhabdo does not fit into GBS while areflexia does not fit into polymyositis. I recommended to start on IV Solu-Medrol 250 mg q.6 hours. I have ordered IgA level, if the patient has evidence of GBS on EMG tomorrow can be started on IVIG. documented in this encounter Plan of Treatment Pending Results Name Type Priority Associated Diagnoses Date /Time MYOSITIS ANTIBODY PANEL COMPREHENSIVE Lab AM Draw 12/05/2024 5:18 AM CDT VITAMIN B1 Lab AM Draw 12/05/2024 7:1 8 AM CDT [facility] MISCELLANEOUS TEST Lab Routine 12/05/2024 4:40 PM CDT MOTOR SENSORY NEUROPATHY PANEL Lab Routine 12/06/2024 12:40 PM CDT KIMI ANTIBODY PANEL Lab AM Draw 2024 4:29 AM CDT COMPLEMENT C3 Lab Routine 12/07/2024 4:29 AM CDT COMPLEMENT C4 Lab Routine 12/07/2024 4:29 AM CDT Scheduled Orders Name Type Priority Associated Diagnoses Orde r Schedule EKG 12-LEAD ECG Routine Polymyositis ([facility]) ONCE for 1 Occurrences starting 12/04/2024 until 12/04/2024 CT Outside Consultation Imaging Routine Polymyositis (HCC) For radiant use only for 1 Occurrences starting 12/04/2024 until 12/04/2024 MYOSITIS ANTIBODY PANEL COMPREHENSIVE Lab AM Draw NEXT AM FOR LAB for 1 Occurrences starting 12/05/2024 until 12/05/2024 CK BLOOD Lab Timed Every 12hr unt il discontinued starting 12/05/2024, 5 completed VITAMIN B1 Lab AM Draw NEXT AM FOR LA B for 1 Occurrences starting 12/05/2024 until 12/05/2024 EMG Neurology Routine ONCE for 1 Occ urrences starting 12/05/2024 until 12/05/2024 [facility] MISCELLANEOUS TEST Lab Routine ONCE for 1 Occur rences starting 12/06/2024 until 12/06/2024 CBC W AUTO DIFFERENTIAL Lab AM Draw N EXT AM FOR LAB until discontinued starting 12/07/2024, 1 completed PT Eval and Treat PT Routine ONCE fo r 1 Occurrences starting 12/06/2024 until 12/06/2024 OT Eval and Treat OT Routine CONTINU OUS until discontinued starting 12/06/2024 MOTOR SENSORY NEUROPATHY PANEL Lab Routine ONCE for 1 Occur rences starting 12/06/2024 until 12/06/2024 KIMI ANTIBODY PANEL Lab AM Draw NEXT A M FOR LAB for 1 Occurrences starting 12/07/2024 until 12/07/2024 COMPLEMENT C3 Lab Routine NEXT AM FOR LAB for 1 Occurrences starting 12/07/2024 until 12/07/2024 COMPLEMENT C4 Lab Routine NEXT AM FOR LAB for 1 Occurrences starting 12/07/2024 until 12/07/2024 documented as of this encounter Procedures * The patient is currently admitted. The information in this section might not be complete until the patient is discharged. Procedure Name Priority Date/Time Associated Diagnosis Comments RHEUMATOID FACTOR BLOOD QUANTITATIVE AM Draw 12/07/2024 4:29 AM CDT CBC W AUTO DIFFERENTIAL AM Draw 12/07/2024 4:29 AM CDT COMPREHENSIVE METABOLIC PANEL Timed 12/07/2024 4:29 AM CDT CK BLOOD Timed 12/07/2024 4:29 AM CDT COMPREHENSIVE METABOLIC PANEL Timed 12/06/2024 9:17 PM CDT CK BLOOD Timed 12/06/2024 9:17 PM CDT VITAMIN B12 Routine 12/06/2024 12:40 PM CDT HIV-1 HIV-2 ANTIBODY + HIV P24 AG PANEL Routine 12/06/2024 9:03 AM CDT ERYTHROCYTE SEDIMENTATION RATE Routine 12/06/2024 9:03 AM CDT C-REACTIVE PROTEIN Add on 12/06/2024 7: 33 AM CDT COMPREHENSIVE METABOLIC PANEL Timed 12/06/2024 7:33 AM CDT CK BLOOD Timed 12/06/2024 7:33 AM CDT IGA BLOOD Routine 12/06/2024 3:09 AM CDT IGA BLOOD Routine 12/05/2024 11:42 PM CDT COMPREHENSIVE METABOLIC PANEL Timed 12/05/2024 8:03 PM CDT CK BLOOD Timed 12/05/2024 8:03 PM CDT VINICIUS BLOOD SCREEN W/REFLEX TITER Routine 12/05/2024 8:51 AM CDT URINALYSIS REFLEX TO MICROSCOPIC NO CULTURE Routine 12/05/2024 7:51 AM CDT CULTURE URINE Routine 12/05/2024 7:51 AM CDT CK BLOOD Timed 12/05/2024 7:18 AM CDT CBC W/O DIFFERENTIAL Routine 12/05/2024 5:18 AM CDT BASIC METABOLIC PANEL (CALCIUM TOTAL) Routine 12/05/2024 5:18 AM CDT TSH REFLEX FREE T4 Add on 12/04/2024 8: 46 PM CDT CBC W AUTO DIFFERENTIAL STAT 12/04/2024 8:46 PM CDT COMPREHENSIVE METABOLIC PANEL STAT 12/04/2024 8:46 PM CDT LDH BLOOD Add on 12/04/2024 8:46 PM CDT GGT Add on 12/04/2024 8:46 PM CDT CK BLOOD STAT 12/04/2024 8:46 PM CDT IRON + TRANSFERRIN PANEL Add on 12/04/2024 8:46 PM CDT HAPTOGLOBIN Add on 12/04/2024 8:46 PM CDT FERRITIN Add on 12/04/2024 8:46 PM CDT documented in this encounter Results * RHEUMATOID FACTOR BLOOD QUANTITATIVE (12/07/2024 4:29 AM CDT) [facility] Rheumatoid Factor Quantitative <13 <30 IU/mL 12/07/2024 5:34 AM CDT [facility] Blood BLOOD SPECIMEN / Unknown Lab Venipuncture / Unknown 12/07/2024 4:29 AM CDT 12/07/2024 5:13 AM CDT Sanjuana Steele MD LAB - CHEMISTRY ORDERABLES Final Result [facility] [address] [place] [address] * (ABNORMAL) CBC W AUTO DIFFERENTIAL (12/07/2024 4:29 AM CDT) [facility] WBC 10.5 4.0 - 10.7 x10E9/L 12/07/2024 5:22 AM CDT [facility] RBC Count 3.38(L) 3.90 - 5.20 x10E12/L 12/07/2024 5:22 AM CDT [facility] Hemoglobin 10.2(L) 11.9 - 15.8 g/dL 12/07/2024 5:22 AM [facility] Hematocrit 30.4(L) 34.8 - 46.1 % 12/07/2024 5:22 AM CDT [facility] MCV 89.9 80.0 - 98.0 fL 12/07/2024 5:22 AM CDT [facility] MCH 30.2 26.7 - 33.6 pg 12/07/2024 5:22 AM [facility] MCHC 33.6 31.7 - 36.3 g/dL 12/07/2024 5:22 AM [facility] RDW-CV 12.9 11.3 - 14.8 % 12/07/2024 5:22 AM [facility] Platelet Count 109(L) 150 - 420 x10E9/L 12/07/2024 5:22 AM [facility] MPV 12.4(H) 7.8 - 11.4 fL 12/07/2024 5:22 AM [facility] Neutrophil % 89.3(H) 41.0 - 74.0 % 12/07/2024 5:22 AM [facility] Lymphocyte % 5.8(L) 17.0 - 47.0 % 12/07/2024 5:22 AM [facility] Monocyte % 2.1(L) 3.0 - 11.0 % 12/07/2024 5:22 AM [facility] Eosinophil % 0.0 0.0 - 7.0 % 12/07/2024 5:22 AM [facility] Basophil % 0.1 0.0 - 1.6 % 12/07/2024 5:22 AM [facility] Immature Granulocytes % 2.7(H) 0.0 - 1.0 % 12/07/2024 5:22 AM [facility] Neutrophil Absolute 9.34(H) 1.60 - 7.50 x10E9/L 12/07/2024 5:22 AM [facility] Lymphocyte Absolute 0.61(L) 1.00 - 4.40 x10E9/L 12/07/2024 5:22 AM [facility] Monocyte Absolute 0.22 0.15 - 1.00 x10E9/L 12/07/2024 5:22 AM [facility] Eosinophil Absolute 0.00 0.00 - 0.60 x10E9/L 12/07/2024 5:22 AM CDT [facility] Basophil Absolute 0.01 0.00 - 0.13 x10E9/L 12/07/2024 5:22 AM [facility] Blood BLOOD SPECIMEN / Unknown Lab Venipuncture / Unknown 12/07/2024 4:29 AM CDT 12/07/2024 5:12 AM CDT us Asuncion Mireles MD LAB - HEMATOLOGY ORDERABLES Viridiana l Result [facility] [address] [place] [address] * (ABNORMAL) COMPREHENSIVE METABOLIC PANEL (12/07/2024 4:29 AM CDT) Glucose 134(H) 70 - 99 mg/dL 12/07/2024 5:44 AM [facility] Sodium 142 136 - 145 mmol/L 12/07/2024 5:44 AM [facility] Potassium 3.5 3.5 - 5.1 mmol/L 12/07/2024 5:44 AM [facility] Chloride 116(H) 98 - 107 mmol/L 12/07/2024 5:44 AM [facility] CO2 18(L) 22 - 29 mmol/L 12/07/2024 5:44 AM [facility] Calcium 8.6 8.4 - 10.4 mg/dL 12/07/2024 5:44 AM [facility] Anion Gap 8 6 - 16 mmol/L 12/07/2024 5:44 AM [facility] BUN 16 5.3 - 18.7 mg/dL 12/07/2024 5:44 AM [facility] Creatinine 0.55(L) 0.57 - 1.11 mg/dL 12/07/2024 5:44 AM [facility] Alkaline Phosphatase 129 40 - 150 U/L 12/07/2024 5:44 AM [facility] ALT 903(H) 6 - 57 U/L 12/07/2024 5:44 AM [facility] AST 899(H) 10 - 48 U/L 12/07/2024 5:44 AM CDT [facility] Protein Total 5.7(L) 6.4 - 8.3 gm/dL 12/07/2024 5:44 AM CDT [facility] Albumin 2.7(L) 3.1 - 4.5 gm/dL 12/07/2024 5:44 AM CDT [facility] Bilirubin Total 0.1(L) 0.2 - 1.2 mg/dL 12/07/2024 5:44 AM CDT [facility] eGFR by CKD-EPI >90 >=90 mL/min/1.7 3 m2 12/07/2024 5:44 AM CDT [facility] Comment:Estimated Glomerular Filtration Rate (eGFR) calculated using the CKD-EPI Creatinine Equation (2020), per the National Kidney Foundation and [place] [employer] recommendations. Blood BLOOD SPECIMEN / Unknown Lab Venipuncture / Unknown 12/07/2024 4:29 AM CDT 12/07/2024 5:13 AM CDT us Asuncion Mireles MD LAB - CHEMISTRY ORDERABLES Final Result Performing Organization Address City/[facility]/ZIP Co de Phone Number [facility] [address] [place], [place] [id number] * (ABNORMAL) CK BLOOD (12/07/2024 4:29 AM CDT) CK 25,478(H) 29 - 168 U/L 12/07/2024 6:16 AM CDT [facility] Blood BLOOD SPECIMEN / Unknown Lab Venipuncture / Unknown 12/07/2024 4:29 AM CDT 12/07/2024 5:13 AM CDT Crow Ngo MD LAB - CHEMISTRY ORDERABLES Final Result [facility] [address] [place], [place] [id number] * (ABNORMAL) COMPREHENSIVE METABOLIC PANEL (12/06/2024 9:17 PM CDT) Glucose 142(H) 70 - 99 mg/dL 12/06/2024 9:40 PM [facility] Sodium 141 136 - 145 mmol/L 12/06/2024 9:40 PM [facility] Potassium 3.4(L) 3.5 - 5.1 mmol/L 12/06/2024 9:40 PM [facility] Chloride 115(H) 98 - 107 mmol/L 12/06/2024 9:40 PM [facility] CO2 17(L) 22 - 29 mmol/L 12/06/2024 9:40 PM [facility] Calcium 8.6 8.4 - 10.4 mg/dL 12/06/2024 9:40 PM [facility] Anion Gap 9 6 - 16 mmol/L 12/06/2024 9:40 PM [facility] BUN 14 5.3 - 18.7 mg/dL 12/06/2024 9:40 PM [facility] Creatinine 0.51(L) 0.57 - 1.11 mg/dL 12/06/2024 9:40 PM [facility] Alkaline Phosphatase 124 40 - 150 U/L 12/06/2024 9:40 PM [facility] ALT 904(H) 6 - 57 U/L 12/06/2024 9:40 PM [facility] AST 1,043(H) 10 - 48 U/L 12/06/2024 9:40 PM [facility] Protein Total 5.5(L) 6.4 - 8.3 gm/dL 12/06/2024 9:40 PM [facility] Albumin 2.6(L) 3.1 - 4.5 gm/dL 12/06/2024 9:40 PM [facility] Bilirubin Total 0.1(L) 0.2 - 1.2 mg/dL 12/06/2024 9:40 PM [facility] eGFR by CKD-EPI >90 >=90 mL/min/1. 73 m2 12/06/2024 9:40 PM [facility] Comment:Estimated Glomerular Filtration Rate (eGFR) calculated using the CKD-EPI Creatinine Equation (2020), per the National Kidney Foundation and [place] [employer] recommendations. Blood BLOOD SPECIMEN / Unknown Lab Venipuncture / Unknown 12/06/2024 9:17 PM CDT 12/06/2024 9:22 PM CDT Asuncion Mireles MD LAB - CHEMISTRY ORDERABLES Final Result Performing Organization Address [facility]/ZIP Co de Phone Number [facility] [address] [place] [phone] * (ABNORMAL) CK BLOOD (12/06/2024 9:17 PM CDT) CK 33,010(H) 29 - 168 U/L 12/06/2024 9:52 PM CDT [facility] Blood BLOOD SPECIMEN / Unknown Lab Venipuncture / Unknown 12/06/2024 9:17 PM CDT 12/06/2024 9:22 PM CDT Crow Ngo MD LAB - CHEMISTRY ORDERABLES Final Result Performing Organization Address [facility] Co de Phone Number [facility] [address] [place] [phone] * VITAMIN B12 (12/06/2024 12:40 PM CDT) Pathologist [facility] Vitamin B12 603 213 - 816 pg/mL 12/06/2024 1:58 PM CDT [facility] Blood BLOOD SPECIMEN / Unknown Lab Venipuncture / Unknown 12/06/2024 12:40 PM CDT 12/06/2024 1:04 PM CDT Tessie Contreras PA-C LAB - CHEMISTRY ORDERABL ES Final Result Performing Organization Address City/[facility] Co de Phone Number [facility] [address] [place] [phone] * HIV-1 HIV-2 ANTIBODY + HIV P24 AG PANEL (12/06/2024 9:03 AM CDT) Pathologist [facility] HIV1/2 Ab + P24 Ag Non Reactive Non Reactive 12/06/2024 9:50 AM CDT [facility] Blood BLOOD SPECIMEN / Unknown Lab Venipuncture / Unknown 12/06/2024 9:03 AM CDT 12/06/2024 9:08 AM CDT Narrative [facility] - 12/06/2024 9:50 AM CDT No Laboratory evidence of HIV infection. Asuncion Mireles MD LAB - CHEMISTRY ORDERABLES Final Result Performing Organization Address [facility] Co de Phone Number [facility] [address] [place] [phone] * (ABNORMAL) ERYTHROCYTE SEDIMENTATION RATE (12/06/2024 9:03 AM CDT) Pathologist [facility] Erythrocyte Sedimentation Rate Automated 44(H) 0 - 20 MM/HR 12/06/2024 9:16 AM CDT [facility] Blood BLOOD SPECIMEN / Unknown Lab Venipuncture / Unknown 12/06/2024 9:03 AM CDT 12/06/2024 9:08 AM CDT Asuncion Mireles MD LAB - HEMATOLOGY ORDERABLES Viridiana l Result Performing Organization Address [facility] de Phone Number [facility] [address] [place] [phone] * (ABNORMAL) C-REACTIVE PROTEIN (12/06/2024 7:33 AM CDT) Pathologist [facility] C-Reactive Protein 8.88(H) <=0.50 mg/dL 12/06/2024 9:11 AM CDT [facility] Blood BLOOD SPECIMEN / Unknown Lab Venipuncture / Unknown 12/06/2024 7:33 AM CDT 12/06/2024 8:05 AM CDT Asuncion Mireles MD LAB - CHEMISTRY ORDERABLES Final Result Performing Organization Address [facility] de Phone Number [facility] [address] [place] [phone] * (ABNORMAL) COMPREHENSIVE METABOLIC PANEL (12/06/2024 7:33 AM CDT) Pathologist [facility] Glucose 136(H) 70 - 99 mg/dL 12/06/2024 8:32 AM CDT [facility] Sodium 141 136 - 145 mmol/L 12/06/2024 8:32 AM [facility] Potassium 3.6 3.5 - 5.1 mmol/L 12/06/2024 8:32 AM [facility] Chloride 115(H) 98 - 107 mmol/L 12/06/2024 8:32 AM [facility] CO2 17(L) 22 - 29 mmol/L 12/06/2024 8:32 AM [facility] Calcium 8.5 8.4 - 10.4 mg/dL 12/06/2024 8:32 AM [facility] Anion Gap 9 6 - 16 mmol/L 12/06/2024 8:32 AM [facility] BUN 11 5.3 - 18.7 mg/dL 12/06/2024 8:32 AM [facility] Creatinine 0.47(L) 0.57 - 1.11 mg/dL 12/06/2024 8:32 AM [facility] Alkaline Phosphatase 142 40 - 150 U/L 12/06/2024 8:32 AM [facility] ALT 915(H) 6 - 57 U/L 12/06/2024 8:32 AM [facility] AST 1,200(H) 10 - 48 U/L 12/06/2024 8:32 AM [facility] Protein Total 5.7(L) 6.4 - 8.3 gm/dL 12/06/2024 8:32 AM [facility] Albumin 2.6(L) 3.1 - 4.5 gm/dL 12/06/2024 8:32 AM [facility] Bilirubin Total 0.1(L) 0.2 - 1.2 mg/dL 12/06/2024 8:32 AM [facility] eGFR by CKD-EPI >90 >=90 mL/min/1. 73 m2 12/06/2024 8:32 AM [facility] Comment:Estimated Glomerular Filtration Rate (eGFR) calculated using the CKD-EPI Creatinine Equation (2020), per the National Kidney Foundation and [place] [employer] recommendations. Blood BLOOD SPECIMEN / Unknown Lab Venipuncture / Unknown 12/06/2024 7:33 AM CDT 12/06/2024 8:05 AM CDT us Asuncion Mireles MD LAB - CHEMISTRY ORDERABLES Final Result Performing Organization Address City/[facility]/ZIP Co de Phone Number [facility] [address] [place] [phone] * (ABNORMAL) CK BLOOD (12/06/2024 7:33 AM CDT) CK 37,991(H) 29 - 168 U/L 12/06/2024 9:11 AM CDT [facility] Blood BLOOD SPECIMEN / Unknown Lab Venipuncture / Unknown 12/06/2024 7:33 AM CDT 12/06/2024 8:05 AM CDT us Crow Ngo MD LAB - CHEMISTRY ORDERABLES Final Result Performing Organization Address [facility] Co de Phone Number [facility] [address] [place] [address] * IGA BLOOD (12/06/2024 3:09 AM CDT) IgA 154 61 - 356 mg/dL 12/06/2024 11:37 AM CDT [facility] Blood BLOOD SPECIMEN / Unknown Lab Venipuncture / Unknown 12/06/2024 3:09 AM CDT 12/06/2024 4:44 AM CDT us Salomón Winter MD LAB - CHEMISTRY ORDERABLES F inal Result [address] [address], [facility] [phone] * IGA BLOOD (12/05/2024 11:42 PM CDT) IgA 157 61 - 356 mg/dL 12/06/2024 11:21 AM CDT [facility] Blood BLOOD SPECIMEN / Unknown Lab Venipuncture / Unknown 12/05/2024 11:42 PM CDT 12/06/2024 12:28 AM CDT us Salomón Winter MD LAB - CHEMISTRY ORDERABLES F inal Result [address] [address], [facility] [phone] * (ABNORMAL) COMPREHENSIVE METABOLIC PANEL (12/05/2024 8:03 PM CDT) Glucose 132(H) 70 - 99 mg/dL 12/05/2024 8:53 PM CDT [facility] Sodium 141 136 - 145 mmol/L 12/05/2024 8:53 PM CDT [facility] Potassium 3.6 3.5 - 5.1 mmol/L 12/05/2024 8:53 PM CDT [facility] Chloride 114(H) 98 - 107 mmol/L 12/05/2024 8:53 PM CDT [facility] CO2 18(L) 22 - 29 mmol/L 12/05/2024 8:53 PM CDT [facility] Calcium 8.6 8.4 - 10.4 mg/dL 12/05/2024 8:53 PM CDT [facility] Anion Gap 9 6 - 16 mmol/L 12/05/2024 8:53 PM CDT [facility] BUN 7 5.3 - 18.7 mg/dL 12/05/2024 8:53 PM CDT [facility] Creatinine 0.51(L) 0.57 - 1.11 mg/dL 12/05/2024 8:53 PM CDT [facility] Alkaline Phosphatase 157(H) 40 - 150 U/L 12/05/2024 8:53 PM CDT [facility] ALT 960(H) 6 - 57 U/L 12/05/2024 8:53 PM CDT [facility] AST 1,510(H) 10 - 48 U/L 12/05/2024 8:53 PM CDT [facility] Protein Total 5.9(L) 6.4 - 8.3 gm/dL 12/05/2024 8:53 PM CDT [facility] Albumin 2.6(L) 3.1 - 4.5 gm/dL 12/05/2024 8:53 PM CDT [facility] Bilirubin Total 0.2 0.2 - 1.2 mg/dL 12/05/2024 8:53 PM CDT [facility] eGFR by CKD-EPI >90 >=90 mL/min/1. 73 m2 12/05/2024 8:53 PM CDT [facility] Comment:Estimated Glomerular Filtration Rate (eGFR) calculated using the CKD-EPI Creatinine Equation (2020), per the National Kidney Foundation and [place] [employer] recommendations. Blood BLOOD SPECIMEN / Unknown Lab Venipuncture / Unknown 12/05/2024 8:03 PM CDT 12/05/2024 8:12 PM CDT Asuncion Mireles MD LAB - CHEMISTRY ORDERABLES Final Result [facility] [address] [place], [place] [id number] * (ABNORMAL) CK BLOOD (12/05/2024 8:03 PM CDT) CK >42,670(H) 29 - 168 U/L 12/05/2024 9:13 PM CDT [facility] Blood BLOOD SPECIMEN / Unknown Lab Venipuncture / Unknown 12/05/2024 8:03 PM CDT 12/05/2024 8:12 PM CDT us Crow Ngo MD LAB - CHEMISTRY ORDERABLES Final Result Performing Organization Address City/[facility]/ZIP Co de Phone Number [facility] [address] [place] [phone] * VINICIUS BLOOD SCREEN W/REFLEX TITER (12/05/2024 8:51 AM CDT) VINICIUS Negative Negative 12/06/2024 10:28 AM CDT [facility] Blood BLOOD SPECIMEN / Unknown Lab Venipuncture / Unknown 12/05/2024 8:51 AM CDT 12/05/2024 9:24 AM CDT Narrative [facility] - 12/06/2024 10:28 AM CDT Methodology: Indirect Immunofluorescence Assay (IFA) utilizing Hep-2-Gamma cells. Asuncion Mireles MD LAB - CHEMISTRY ORDERABLES Final Result Performing Organization Address City/[facility]/ZIP Co de Phone Number [facility] [address] [place] [address] * CULTURE URINE (12/05/2024 7:51 AM CDT) Culture Urine <10,000 CFU/mL urogenital beth BEN 12/06/2024 3:03 PM CDT [facility] Urine URINE SPECIMEN OBTAINED BY CLEAN CATCH PROCEDURE / Unknown Collection / Unknown 12/05/2024 7:51 AM CDT 12/05/2024 11:23 AM CDT Asuncion Mireles MD LAB - MICROBIOLOGY ORDERABLES Fi nal Result Performing Organization Address [facility]/ZIP Co de Phone Number [facility]CROBI[facility] [address] [place] [address], [facility] [phone] * (ABNORMAL) URINALYSIS REFLEX TO MICROSCOPIC NO CULTURE (12/05/2024 7:51 AM CDT) Color UA Yellow Yellow, Straw 12/05/2024 8:49 AM CDT [facility] Clarity UA Clear Clear 12/05/2024 8:49 AM CDT [facility] Glucose UA Normal Normal 12/05/2024 8:49 AM CDT [facility] Bilirubin UA Negative Negative 12/05/2024 8:49 AM CDT [facility] Ketone UA 2+(A) Negative 12/05/2024 8:49 AM CDT [facility] Specific [place] UA 1.008 1.005 - 1.030 12/05/2024 8:49 AM CDT [facility] Blood UA 3+(A) Negative 12/05/2024 8:49 AM CDT [facility] pH UA 6.0 5.0 - 8.0 12/05/2024 8:49 AM CDT [facility] Protein UA 1+(A) Negative 12/05/2024 8:49 AM CDT [facility] Urobilinogen UA 3.0(A) Normal mg/dL 12/05/2024 8:49 AM CDT [facility] Nitrite UA Negative Negative 12/05/2024 8:49 AM CDT [facility] Leukocyte Esterase UA 75 LALITO/uL(A) Negative 12/05/2024 8:49 AM CDT [facility] RBC UA 6-10(A) 0 - 5 # /hpf 12/05/2024 8:49 AM CDT [facility] WBC UA 11-20(A) 0 - 5 # /hpf 12/05/2024 8:49 AM CDT [facility] Bacteria UA Trace(A) None Seen 12/05/2024 8:49 AM CDT [facility] Squamous Epithelial Cells 0-2 0 - 5 /hpf 12/05/2024 8:49 AM CDT [facility] Mucus UA 1+ /LPF 12/05/2024 8:49 AM CDT [facility] Urine URINE SPECIMEN OBTAINED BY CLEAN CATCH PROCEDURE / Unknown Collection / Unknown 12/05/2024 7:51 AM CDT 12/05/2024 7:51 AM CDT Narrative [facility] - 12/05/2024 8:49 AM CDT Crow Ngo MD LAB - URINALYSIS ORDERABLES Viridiana l Result [facility] [address] [place] [phone] * (ABNORMAL) CK BLOOD (12/05/2024 7:18 AM CDT) Pathologist [facility] CK >42,670(H) 29 - 168 U/L 12/05/2024 7:55 AM CDT [facility] Blood BLOOD SPECIMEN / Unknown Lab Venipuncture / Unknown 12/05/2024 7:18 AM CDT 12/05/2024 7:24 AM CDT Crow Ngo MD LAB - CHEMISTRY ORDERABLES Final Result [facility] [address] [place] [phone] * (ABNORMAL) CBC W/O DIFFERENTIAL (12/05/2024 5:18 AM CDT) WBC 5.7 4.0 - 10.7 x10E9/L 12/05/2024 5:46 AM CDT [facility] RBC Count 3.69(L) 3.90 - 5.20 x10E12/L 12/05/2024 5:46 AM CDT [facility] Hemoglobin 11.2(L) 11.9 - 15.8 g/dL 12/05/2024 5:46 AM CDT [facility] Hematocrit 33.2(L) 34.8 - 46.1 % 12/05/2024 5:46 AM CDT [facility] MCV 90.0 80.0 - 98.0 fL 12/05/2024 5:46 AM CDT [facility] MCH 30.4 26.7 - 33.6 pg 12/05/2024 5:46 AM CDT [facility] MCHC 33.7 31.7 - 36.3 g/dL 12/05/2024 5:46 AM CDT [facility] RDW-CV 12.6 11.3 - 14.8 % 12/05/2024 5:46 AM CDT [facility] Platelet Count 106(L) 150 - 420 x10E9/L 12/05/2024 5:46 AM CDT [facility] MPV 12.1(H) 7.8 - 11.4 fL 12/05/2024 5:46 AM CDT [facility] Blood BLOOD SPECIMEN / Unknown Lab Venipuncture / Unknown 12/05/2024 5:18 AM CDT 12/05/2024 5:27 AM CDT us Rafael Esquivel MD LAB - HEMATOLOGY ORDERABLES Fin al Result [facility] [address] [place] [address] * (ABNORMAL) BASIC METABOLIC PANEL (CALCIUM TOTAL) (12/05/2024 5:18 AM CDT) Glucose 95 70 - 99 mg/dL 12/05/2024 6:04 AM CDT [facility] Sodium 140 136 - 145 mmol/L 12/05/2024 6:04 AM CDT [facility] Potassium 3.6 3.5 - 5.1 mmol/L 12/05/2024 6:04 AM CDT [facility] Chloride 113(H) 98 - 107 mmol/L 12/05/2024 6:04 AM CDT [facility] CO2 16(L) 22 - 29 mmol/L 12/05/2024 6:04 AM CDT [facility] Calcium 8.9 8.4 - 10.4 mg/dL 12/05/2024 6:04 AM T [facility] Anion Gap 11 6 - 16 mmol/L 12/05/2024 6:04 AM CDT [facility] BUN 7 5.3 - 18.7 mg/dL 12/05/2024 6:04 AM T [facility] Creatinine 0.51(L) 0.57 - 1.11 mg/dL 12/05/2024 6:04 AM [facility] eGFR by CKD-EPI >90 >=90 mL/min/1.7 3 m2 12/05/2024 6:04 AM T [facility] Comment:Estimated Glomerular Filtration Rate (eGFR) calculated using the CKD-EPI Creatinine Equation (2020), per the National Kidney Foundation and [place] [employer] recommendations. Blood BLOOD SPECIMEN / Unknown Lab Venipuncture / Unknown 12/05/2024 5:18 AM CDT 12/05/2024 5:27 AM CDT Rafael Esquivel MD LAB - CHEMISTRY ORDERABLES Viridiana l Result [facility] [address] [place], [place] [phone] * TSH REFLEX FREE T4 (12/04/2024 8:46 PM CDT) TSH 1.295 0.350 - 4.940 uIU/mL 12/05/2024 1:19 AM CDT [facility] Blood BLOOD SPECIMEN / Unknown Lab Venipuncture / Unknown 12/04/2024 8:46 PM CDT 12/04/2024 8:51 PM CDT Crow Ngo MD LAB - CHEMISTRY ORDERABLES Final Result [facility] [address] [place] [address] * (ABNORMAL) GGT (12/04/2024 8:46 PM CDT) Pathologist [facility] GGT 45(H) <38 U/L 12/05/2024 1:00 AM CDT [facility] Blood BLOOD SPECIMEN / Unknown Lab Venipuncture / Unknown 12/04/2024 8:46 PM CDT 12/04/2024 8:51 PM CDT Crow Ngo MD LAB - CHEMISTRY ORDERABLES Final Result Performing Organization Address [facility]/ZIP Co de Phone Number [facility] [address] [place] [phone] * FERRITIN (12/04/2024 8:46 PM CDT) Pathologist [facility] Ferritin 192 5 - 204 ng/mL 12/05/2024 1:19 AM CDT [facility] Blood BLOOD SPECIMEN / Unknown Lab Venipuncture / Unknown 12/04/2024 8:46 PM CDT 12/04/2024 8:51 PM CDT Crow Ngo MD LAB - CHEMISTRY ORDERABLES Final Result Performing Organization Address [facility]/ZIP Co de Phone Number [facility] [address] [place] [phone] * (ABNORMAL) IRON + TRANSFERRIN PANEL (12/04/2024 8:46 PM CDT) Pathologist [facility] Iron 22(L) 40 - 150 ug/dL 12/05/2024 1:00 AM CDT [facility] Transferrin 150(L) 174 - 382 mg/dL 12/05/2024 1:00 AM CDT [facility] TIBC Calculated 188(L) 240 - 450 ug/dL 12/05/2024 1:00 AM CDT [facility] Iron Saturation % 12(L) 20 - 50 % 12/05/2024 1:00 AM CDT [facility] Blood BLOOD SPECIMEN / Unknown Lab Venipuncture / Unknown 12/04/2024 8:46 PM CDT 12/04/2024 8:51 PM CDT us Crow Ngo MD LAB - CHEMISTRY ORDERABLES Final Result Performing Organization Address [facility]/ZIP Co de Phone Number [facility] [address] [place] [phone] * HAPTOGLOBIN (12/04/2024 8:46 PM CDT) Haptoglobin 197 35 - 250 mg/dL 12/04/2024 10:32 PM CDT [facility] Blood BLOOD SPECIMEN / Unknown Lab Venipuncture / Unknown 12/04/2024 8:46 PM CDT 12/04/2024 8:51 PM CDT Crow Ngo MD LAB - CHEMISTRY ORDERABLES Final Result Performing Organization Address [facility] Co de Phone Number [facility] [address] [place] [phone] * (ABNORMAL) LDH BLOOD (12/04/2024 8:46 PM CDT) LDH 2,169(H) 125 - 220 U/L 12/04/2024 10:36 PM CDT [facility] Blood BLOOD SPECIMEN / Unknown Lab Venipuncture / Unknown 12/04/2024 8:46 PM CDT 12/04/2024 8:51 PM CDT Crow Ngo MD LAB - CHEMISTRY ORDERABLES Final Result Performing Organization Address [facility] Co de Phone Number [facility] [address] [place] [phone] * (ABNORMAL) COMPREHENSIVE METABOLIC PANEL (12/04/2024 8:46 PM CDT) Glucose 82 70 - 99 mg/dL 12/04/2024 9:13 PM CDT [facility] Sodium 139 136 - 145 mmol/L 12/04/2024 9:13 PM CDT [facility] Potassium 3.1(L) 3.5 - 5.1 mmol/L 12/04/2024 9:13 PM [facility] Chloride 113(H) 98 - 107 mmol/L 12/04/2024 9:13 PM [facility] CO2 19(L) 22 - 29 mmol/L 12/04/2024 9:13 PM [facility] Calcium 8.3(L) 8.4 - 10.4 mg/dL 12/04/2024 9:13 PM [facility] Anion Gap 7 6 - 16 mmol/L 12/04/2024 9:13 PM [facility] BUN 9 5.3 - 18.7 mg/dL 12/04/2024 9:13 PM [facility] Creatinine 0.52(L) 0.57 - 1.11 mg/dL 12/04/2024 9:13 PM [facility] Alkaline Phosphatase 137 40 - 150 U/L 12/04/2024 9:13 PM [facility] ALT 893(H) 6 - 57 U/L 12/04/2024 9:13 PM [facility] AST 1,538(H) 10 - 48 U/L 12/04/2024 9:13 PM [facility] Protein Total 5.4(L) 6.4 - 8.3 gm/dL 12/04/2024 9:13 PM [facility] Albumin 2.6(L) 3.1 - 4.5 gm/dL 12/04/2024 9:13 PM [facility] Bilirubin Total 0.2 0.2 - 1.2 mg/dL 12/04/2024 9:13 PM [facility] eGFR by CKD-EPI >90 >=90 mL/min/1. 73 m2 12/04/2024 9:13 PM [facility] Comment:Estimated Glomerular Filtration Rate (eGFR) calculated using the CKD-EPI Creatinine Equation (2020), per the National Kidney Foundation and [place] [employer] recommendations. Blood BLOOD SPECIMEN / Unknown Lab Venipuncture / Unknown 12/04/2024 8:46 PM CDT 12/04/2024 8:51 PM CDT us Rafael Esquivel MD LAB - CHEMISTRY ORDERABLES Viridiana l Result [facility] [address] [place] [address] * (ABNORMAL) CK BLOOD (12/04/2024 8:46 PM CDT) [facility] CK >42,670(H) 29 - 168 U/L 12/04/2024 9:41 PM CDT [facility] Blood BLOOD SPECIMEN / Unknown Lab Venipuncture / Unknown 12/04/2024 8:46 PM CDT 12/04/2024 8:51 PM CDT Rafael Esquivel MD LAB - CHEMISTRY ORDERABLES Viridiana l Result Performing Organization Address [facility] Co de Phone Number [facility] [address] [place] [phone] * (ABNORMAL) CBC W AUTO DIFFERENTIAL (12/04/2024 8:46 PM CDT) [facility] WBC 6.0 4.0 - 10.7 x10E9/L 12/04/2024 8:58 PM CDT [facility] RBC Count 3.42(L) 3.90 - 5.20 x10E12/L 12/04/2024 8:58 PM CDT [facility] Hemoglobin 10.4(L) 11.9 - 15.8 g/dL 12/04/2024 8:58 PM CDT [facility] Hematocrit 31.0(L) 34.8 - 46.1 % 12/04/2024 8:58 PM CDT [facility] MCV 90.6 80.0 - 98.0 fL 12/04/2024 8:58 PM CDT [facility] MCH 30.4 26.7 - 33.6 pg 12/04/2024 8:58 PM CDT [facility] MCHC 33.5 31.7 - 36.3 g/dL 12/04/2024 8:58 PM CDT [facility] RDW-CV 12.7 11.3 - 14.8 % 12/04/2024 8:58 PM CDT [facility] Platelet Count 111(L) 150 - 420 x10E9/L 12/04/2024 8:58 PM CDT [facility] MPV 12.1(H) 7.8 - 11.4 fL 12/04/2024 8:58 PM CDT [facility] Neutrophil % 84.6(H) 41.0 - 74.0 % 12/04/2024 8:58 PM CDT [facility] Lymphocyte % 8.4(L) 17.0 - 47.0 % 12/04/2024 8:58 PM CDT [facility] Monocyte % 4.6 3.0 - 11.0 % 12/04/2024 8:58 PM CDT [facility] Eosinophil % 1.7 0.0 - 7.0 % 12/04/2024 8:58 PM CDT [facility] Basophil % 0.2 0.0 - 1.6 % 12/04/2024 8:58 PM CDT [facility] Immature Granulocytes % 0.5 0.0 - 1.0 % 12/04/2024 8:58 PM CDT [facility] Neutrophil Absolute 5.11 1.60 - 7.50 x10E9/L 12/04/2024 8:58 PM CDT [facility] Lymphocyte Absolute 0.51(L) 1.00 - 4.40 x10E9/L 12/04/2024 8:58 PM CDT [facility] Monocyte Absolute 0.28 0.15 - 1.00 x10E9/L 12/04/2024 8:58 PM CDT [facility] Eosinophil Absolute 0.10 0.00 - 0.60 x10E9/L 12/04/2024 8:58 PM CDT [facility] Basophil Absolute 0.01 0.00 - 0.13 x10E9/L 12/04/2024 8:58 PM CDT [facility] Blood BLOOD SPECIMEN / Unknown Lab Venipuncture / Unknown 12/04/2024 8:46 PM CDT 12/04/2024 8:51 PM CDT us Rafael Esquivel MD LAB - HEMATOLOGY ORDERABLES Fin al Result [facility] [address] [place] [address] documented in this encounter Visit Diagnoses Diagnosis Polymyositis (HCC)- Primary Polymyositis Polymyositis (HCC) Polymyositis Transaminitis Nonspecific elevation of levels of transaminase or lactic acid dehydrogenase (LDH) Rhabdomyolysis Areflexia Abnormal reflex Lumbar spinal stenosis Spinal stenosis, lumbar region, without neurogenic claudication Constipation Iron deficiency anemia Iron deficiency anemia, unspecified Hypokalemia Hypopotassemia documented in this encounter Administered Medications Active Administered Medications - up to 3 most recent administrations Medication Order MAR Action Action Date Dose Rate Site 0.9% NaCl infusion at 200 mL/hr, Intravenous, CONTINUOUS, Starting on 12/05/24 at 1715, Until Discontinued $ New Bag/Syringe 12/07/2024 5:28 AM CDT 200 mL/hr $ New Bag/Syringe 12/06/2024 11:29 PM CDT 200 m L/hr $ New Bag/Syringe 12/06/2024 5:06 PM CDT 200 mL /hr 0.9% NaCl injection 1-10 mL 1-10 mL, Intracatheter, PRN, Other, peripheral line flush, Starting on 12/04/24 at 2135, Until Discontinued, Flush peripheral IV catheter with 1-10 mL of normal saline before and after medications and prn to clear blood from the line or to verify patency. $ Given 12/04/2024 9:54 PM CDT 10 mL 0.9% NaCl injection 3 mL 3 mL, Intracatheter, EVERY 8 HOURS, First dose on 12/04/24 at 2215, Until Discontinued, Flush peripheral IV catheter with 3 mL of normal saline every 8 hours. $ Given 12/06/2024 9:57 PM CDT 3 mL $ Given 12/06/2024 3:24 PM CDT 3 mL $ Given 12/05/2024 2:35 PM CDT 3 mL bisacodyl (Dulcolax) suppository 10 mg 10 mg, Rectal, DAILY PRN, Constipation, Starting on 12/05/24 at 2000, Until Discontinued $ Given 12/06/2024 10:41 AM CDT 10 mg HYDROmorphone (Dilaudid) injection 0.4 mg 0.4 mg, Intravenous, EVERY 3 HOURS PRN, Moderate Pain, Starting on 12/04/24 at 2138, Until Discontinued, If oral route is unavailable. Patient preference for lesser PRN pain meds may be honored when the patient requests a less strong medication, a lower dose, or a less intrusive route of administration when the lesser drug, dose and route have been ordered for the patient. This patient request must be documented in the MAR. If both oral and IV options are ordered for the same pain severity, give oral first unless patient cannot tolerate oral intake $ Given 12/07/2024 4:38 A M CDT 0.4 mg $ Given 12/06/2024 9:57 PM CDT 0.4 mg $ Given 12/06/2024 3:23 PM CDT 0.4 mg iron sucrose (Venofer) 300 mg in NaCl IV 0.9 % 285 mL IVPB 300 mg, at 190 mL/hr, Intravenous, DAILY, 3 doses, First dose on Fri12/05/24 at 0930, Last dose on Fri12/07/24 at 0900, Observe for signs and symptoms of hypersensitivity during and after iron sucrose administration for at least 30 minutes and until clinically stable following completion of each administration. $ New Bag/Syringe 12/06/2024 12:00 PM CDT 300 mg 190 mL/hr $ New Bag/Syringe 12/05/2024 10:55 AM CDT 300 mg 190 m L/hr melatonin tablet 3 mg 3 mg, Oral, AT BEDTIME, First dose on 12/04/24 at 2230, Until Discontinued $ Given 12/06/2024 9:56 PM CDT 3 mg $ Given 12/05/2024 9:30 PM CDT 3 mg $ Given 12/04/2024 10:07 PM CDT 3 mg methylPREDNISolone sod succ (SOLU-Medrol) 250 mg in NaCl IV 0.9 % 50 mL bolus 250 mg, at 100 mL/hr, Intravenous, EVERY 6 HOURS, First dose on Fri12/05/24 at 1500, Until Discontinued $ New Bag/Syringe 12/07/2024 4:21 AM CDT 250 mg 100 mL/hr $ New Bag/Syringe 12/06/2024 10:05 PM CDT 250 mg 100 m L/hr $ New Bag/Syringe 12/06/2024 4:20 PM CDT 250 mg 100 mL /hr ondansetron (Zofran) injection 4 mg 4 mg, Intravenous, EVERY 6 HOURS PRN, Nausea/Vomiting, Starting on 12/04/24 at 2334, Until Discontinued, Administer over 2 to 5 minutes. $ Given 12/05/2024 2:35 PM CDT 4 mg $ Given 12/04/2024 11:48 PM CDT 4 mg oxyCODONE (immediate release) (Roxicodone) tablet 5 mg 5 mg, Oral, EVERY 4 HOURS PRN, Moderate Pain, Starting on 12/04/24 at 2138, Until Discontinued, Patient preference for lesser PRN pain meds may be honored when the patient requests a less strong medication, a lower dose, or a less intrusive route of administration when the lesser drug, dose and route have been ordered for the patient. This patient request must be documented in the MAR. If both oral and IV options are ordered for the same pain severity, give oral first unless patient cannot tolerate oral intake $ Given 12/06/2024 8:31 AM CDT 5 mg $ Given 12/06/2024 3:58 AM CDT 5 mg $ Given 12/05/2024 8:12 PM CDT 5 mg polyethylene glycol 3350 (Miralax) packet 17 g 17 g, Oral, 2 TIMES DAILY, First dose (after last modification) on 12/05/24 at 0900, Until Discontinued, Administer daily when escalating to bisacodyl or fleet $ Given 12/06/2024 8:32 AM CDT 17 g $ Given 12/05/2024 9:31 PM CDT 17 g $ Given 12/05/2024 8:45 AM CDT 17 g senna-docusate (Senokot-S) tablet 1 tablet 1 tablet, Oral, 2 TIMES DAILY, First dose on 12/05/24 at 0900, Until Discontinued $ Given 12/06/2024 8:31 AM CDT 1 tablet $ Given 12/05/2024 9:30 PM CDT 1 tablet $ Given 12/05/2024 8:45 AM CDT 1 tablet Inactive Administered Medications - up to 3 most recent administrations Medication Order MAR Action Action Date Dose Rate Site 0.9% NaCl infusion at 125 mL/hr, Intravenous, CONTINUOUS, Starting on 12/04/24 at 2245, Until 12/05/24 at 0444 $ New Bag/Syringe 12/04/2024 10:52 PM CDT 125 mL/hr 0.9% NaCl infusion at 200 mL/hr, Intravenous, CONTINUOUS, Starting on 12/05/24 at 0530, Until 12/05/24 at 1329 $ New Bag/Syringe 12/05/2024 10:53 AM CDT 200 mL/hr $ New Bag/Syringe 12/05/2024 5:52 AM CDT 200 mL /hr Rate Change 12/05/2024 5:15 AM CDT 200 mL/hr bisacodyl EC (Dulcolax) tablet 5 mg 5 mg, Oral, ONCE PRN, Constipation, no BM for 72 hours, 1 dose, Starting on 12/04/24 at 2139, Until 12/04/24 at 2153, Do not take within 1 hour of antacid, milk or milk product. Do not chew, crush or cut in half. $ Given 12/04/2024 9:53 PM CDT 5 mg Nix Ultra Lice Removal Kit 0.25 % KIT 1 Application 1 Application, Apply externally, Once, 1 dose, On 12/06/24 at 1400 $ Given 12/06/2024 10:44 PM CDT 1 Application polyethylene glycol 3350 (Miralax) packet 17 g 17 g, Oral, DAILY PRN, Constipation, Starting on 12/04/24 at 2139, Until 12/05/24 at 0827, Administer daily when escalating to bisacodyl or fleet $ Given 12/04/2024 9:53 PM CDT 17 g potassium chloride ER (Klor-Con M) tablet 40 mEq 40 mEq, Oral, ONCE, 1 dose, On 12/05/24 at 0000, Do not crush or chew. $ Given 12/04/2024 11:48 PM CDT 40 mEq documented in this encounter Active and Recently Administered Medications Times are shown in CDT. Scheduled Medication Order 12/05/2024 12/06/2024 12/07/2024 0.9% NaCl injection 3 mL(Linked Group 1) 3 mL, Intracatheter, EVERY 8 HOURS, First dose on 12/04/24 at 2215, Until Discontinued, Flush peripheral IV catheter with 3 mL of normal saline every 8 hours. 0459 (Not Administered - Provider: Kay Yost RN - Reason: IV Currently Infusing)1435 ($ Given - Provider: Cydney Obando RN)2131 (Not Administered - Provider: Valeria Portillo RN - Reason: IV Currently Infusing) 0538 (Not Administered - Provider: Valeria Portillo RN - Reason: IV Currently Infusing)1524 ($ Given - Provider: Marianna Lang RN)2157 ($ Given - Provider: Maryanne Leo, RN) 0600 (Due)1400 (Due)2200 (Due) iron sucrose (Venofer) 300 mg in NaCl IV 0.9 % 285 mL IVPB 300 mg, at 190 mL/hr, Intravenous, DAILY, 3 doses, First dose on Fri12/05/24 at 0930, Last dose on Fri12/07/24 at 0900, Observe for signs and symptoms of hypersensitivity during and after iron sucrose administration for at least 30 minutes and until clinically stable following completion of each administration. 1055 ($ New Bag/Syringe - Provider: Cydney Obando RN)1240 (Stopped - Provider: Cydney Obando RN) 1200 ($ New Bag/Syringe - Provider: Marianna Lang RN)1330 (Stopped - Provider: Marianna Lang RN) 0900 (Due) melatonin tablet 3 mg 3 mg, Oral, AT BEDTIME, First dose on Fri12/04/24 at 2230, Until Discontinued 2129 ($ Given - Provider: Valeria Portillo RN) 215 ($ Given - Provider: Maryanne Leo RN) 2100 (Due) methylPREDNISolone sod succ (SOLU-Medrol) 250 mg in NaCl IV 0.9 % 50 mL bolus 250 mg, at 100 mL/hr, Intravenous, EVERY 6 HOURS, First dose on Fri12/05/24 at 1500, Until Discontinued 1613 ($ New Bag/Syringe - Provider: Cydney Obando RN)1647 (Stopped - Provider: Cydney Obando RN)2141 ($ New Bag/Syringe - Provider: Valeria Portillo RN)2211 (Stopped - Provider: Valeria Portillo RN) 0422 ($ New Bag/Syringe - Provider: Valeria Portillo RN)0452 (Stopped - Provider: Valeria Portillo RN)1039 ($ New Bag/Syringe - Provider: Marianna Lang RN)1109 (Stopped - Provider: Marianna Lang RN)1620 ($ New Bag/Syringe - Provider: Marianna Lang RN)1650 (Stopped - Provider: Marianna Lang RN)2205 ($ New Bag/Syringe - Provider: Maryanne Leo RN)2328 (Stopped - Provider: Maryanne Leo RN) 0421 ($ New Bag/Syringe - Provider: Maryanne Leo RN)0451 (Due: Stopped - Provider: Maryanne Leo RN)1000 (Due - Provider: Brooke Yadav, PharmD)1600 (Due - Provider: Brooke Yadav, PharmD)2200 (Due - Provider: Brooke Yadav PharmD) Nix Ultra Lice Removal Kit 0.25 % KIT 1 Application (COMPLETED) 1 Application, Apply externally, Once, 1 dose, On Fri12/06/24 at 1400 2244 ($ Given - Provider: Maryanne Leo RN) polyethylene glycol 3350 (Miralax) packet 17 g 17 g, Oral, 2 TIMES DAILY, First dose (after last modification) on 12/05/24 at 0900, Until Discontinued, Administer daily when escalating to bisacodyl or fleet 0845 ($ Given - Provider: Cydney Obando RN)213 ($ Given - Provider: Valeria Portillo, ANKIT) 0832 ($ Given - Provider: Marianna Lang, ANKIT)2157 (Not Administered - Provider: Maryanne Leo RN - Reason: Refused-Patient) 0900 (Due)2100 (Due) senna-docusate (Senokot-S) tablet 1 tablet 1 tablet, Oral, 2 TIMES DAILY, First dose on 12/05/24 at 0900, Until Discontinued 0845 ($ Given - Provider: Cydney Obando RN)213 ($ Given - Provider: Valeria Portillo, ANKIT) 0831 ($ Given - Provider: Marianna Lang, ANKIT)2155 (Not Administered - Provider: Maryanne Leo RN - Reason: Refused-Patient) 0900 (Due)2100 (Due) Continuous Medication Order 12/05/2024 12/06/2024 12/07/2024 0.9% NaCl infusion () at 200 mL/hr, Intravenous, CONTINUOUS, Starting on 12/05/24 at 0530, Until 12/05/24 at 1329 0515 (Rate Change - Provider: Kay Yost RN)0552 ($ New Bag/Syringe - Provider: Kay Yost RN)1053 ($ New Bag/Syringe - Provider: Cydney Obando RN) 0.9% NaCl infusion at 200 mL/hr, Intravenous, CONTINUOUS, Starting on 12/05/24 at 1715, Until Discontinued 1654 ($ New Bag/Syringe - Provider: Cydney Obando RN)2129 ($ New Bag/Syringe - Provider: Valeria Portillo, ANKIT) 0246 ($ New Bag/Syringe - Provider: Valeria Portillo RN)0509 (Current Rate - Provider: Valeria Portillo RN)0835 ($ New Bag/Syringe - Provider: Marianna Lang RN)1706 ($ New Bag/Syringe - Provider: Marianna Lang RN)2329 ($ New Bag/Syringe - Provider: Maryanne Leo RN) 0528 ($ New Bag/Syringe - Provider: Maryanne Leo RN) PRN Medication Order 12/05/2024 12/06/2024 12/07/2024 0.9% NaCl injection 1-10 mL(Linked Group 1) 1-10 mL, Intracatheter, PRN, Other, peripheral line flush, Starting on 12/04/24 at 2135, Until Discontinued, Flush peripheral IV catheter with 1-10 mL of normal saline before and after medications and prn to clear blood from the line or to verify patency. bisacodyl (Dulcolax) suppository 10 mg 10 mg, Rectal, DAILY PRN, Constipation, Starting on 12/05/24 at 2000, Until Discontinued 1041 ($ Given - Provider: Marianna Lang RN) HYDROmorphone (Dilaudid) injection 0.4 mg 0.4 mg, Intravenous, EVERY 3 HOURS PRN, Moderate Pain, Starting on 12/04/24 at 2138, Until Discontinued, If oral route is unavailable. Patient preference for lesser PRN pain meds may be honored when the patient requests a less strong medication, a lower dose, or a less intrusive route of administration when the lesser drug, dose and route have been ordered for the patient. This patient request must be documented in the MAR. If both oral and IV options are ordered for the same pain severity, give oral first unless patient cannot tolerate oral intake 1033 ($ Given - Provider: Marianna Lang RN)1523 ($ Given - Provider: Marianna Lang RN)2157 ($ Given - Provider: Maryanne Leo RN) 0438 ($ Given - Provider: Maryanne Leo RN) ondansetron (Zofran) injection 4 mg 4 mg, Intravenous, EVERY 6 HOURS PRN, Nausea/Vomiting, Starting on 12/04/24 at 2334, Until Discontinued, Administer over 2 to 5 minutes. 1435 ($ Given - Provider: Cydney Obando RN) oxyCODONE (immediate release) (Roxicodone) tablet 5 mg 5 mg, Oral, EVERY 4 HOURS PRN, Moderate Pain, Starting on 12/04/24 at 2138, Until Discontinued, Patient preference for lesser PRN pain meds may be honored when the patient requests a less strong medication, a lower dose, or a less intrusive route of administration when the lesser drug, dose and route have been ordered for the patient. This patient request must be documented in the MAR. If both oral and IV options are ordered for the same pain severity, give oral first unless patient cannot tolerate oral intake 0845 ($ Given - Provider: Cydney Obando RN)1610 ($ Given - Provider: Cydney Obando RN)2012 ($ Given - Provider: Petra Obando RN) 0358 ($ Given - Provider: Valeria Portillo RN)0831 ($ Given - Provider: Marianna Lang RN) Linked Groups Order Group 1: SALINE LOCK, INSERT AND MAINTAIN Routine, CONTINUOUS, Starting on 12/04/24 at 2145, Until Specified, New collection And 0.9% NaCl injection 3 mLJump to med 3 mL, Intracatheter, EVERY 8 HOURS, First dose on 12/04/24 at 2215, Until Discontinued, Flush peripheral IV catheter with 3 mL of normal saline every 8 hours. And 0.9% NaCl injection 1-10 mLJump to med 1-10 mL, Intracatheter, PRN, Other, peripheral line flush, Starting on 12/04/24 at 2135, Until Discontinued, Flush peripheral IV catheter with 1-10 mL of normal saline before and after medications and prn to clear blood from the line or to verify patency. documented in this encounter Care Teams Dietary Aide Teacher Relationship Specialty Start Date End Date Michel Neff MD [address] [facility] [address] [place] [address] PCP - General Internal Medicine 12/04/24 documented as of this encounter
[2024-12-06 08:07] LABS: GGT 57 IU/L (0-60)
[2024-12-06 16:08] LABS: Myoglobin, Urine 211 ng/mL (0-13)
[2024-12-06 18:08] LABS: IgG, Subclass 1 474 mg/dL (248-810); IgG, Subclass 2 186 mg/dL (130-555); IgG, Subclass 3 32 mg/dL (15-102); IgG, Subclass 4 8 mg/dL (2-96); Immunoglobulin G, Qn 799 mg/dL (586-1602)
--- OUTSIDE RECORDS SUMMARY | 2024-12-07 06:21 | XMS_ITS | Patient Health Record ---
Author Organization [facility] Address [address] [place] [address] Care Team Providers Care Fuel Verification Technician Name Role Phone Michel Neff Primary Care Provider Freddie Gomse Unavailable [phone] [facility] Unav ailable Unavailable Jacy Wen Unavailable [phone] Allergies No Known Allergies Results Component Value Reference Range Notes Test, Urine Reviewed date:03/19/2024 03:41:54 PM Interpretation: Performing Lab: Notes/Report: Test, Urine neg Negative - Negative MRI : Lumbar without contras t Reviewed date:11/30/2024 08:05:42 AM Interpretation: Performing Lab: Notes/Report: Reason For Referral Reason prefers [facility] Diagnosis 1 Morbid (severe) obes ity due to excess calories (E66.01) Referral Organization [facility] Referring Provider First Name Michel Referring Provider Last Name Aishwarya Referring Provider Speciality Internal M edicine Referred Provider Specialty Bariatric Gandhi rgery General Notes Latesha Vega 02/13 02:28:31 PM > Referral sent to Dr. Askew-Bariatric Surgeon in [place]. Letter sent to patient., Bárbara Dejesus 11/30/2024 04:24:02 PM >This was completed. Notes in chart from 08/05/24 and 11/04/24. MD Neff reviewed noted. Closing out referral. Clinical Notes Bariatric Surgeon, Coral Askew, [address] [place] [address], [address], [facility], [address], ph: [phone], fax: [phone] Referral Priority Routine Reason INGROWN TOENAIL, PRE FERS CAHOKIA Diagnosis 1 Ingrown right greate r toenail (L60.0) Referral Organization [facility] Referring Provider First Name Michel Referring Provider Last Name Aishwarya Referring Provider Speciality Internal edicine Referred Provider Specialty Podiatry General Notes Monet Beckwith 0 07/13/2024 02:21:06 PM > referral sent to Podiatry. Letter sent Clinical Notes [facility] - Podiatry, Iglesia Tadeo, [place], [address] [place] [address], , Referral Priority Urgent Reason already sees Dr. Francine sharp for bariatric surgery and now has a post op hernia to fix Diagnosis 1 Abdominal wall herni a (K43.9) Referral Organization [facility] Referring Provider First Name Michel Referring [...] tomorrow to get scheduled & will call [facility] back with appointment date.Oleg Melanie D 12/01/2024 02:32:41 PM >Referral refaxed. See Oleg Arellano Melanie D 12/01/2024 02:35:34 PM > Clinical Notes MD Askew [facility], General Surgery at [facility], [address] [place] [address] Dr [address], [place] [address], , Referral Priority Routine Medications Medication SIG [...] 03/25/2024 Active Vitamin D (Ergocalciferol) 1.25 MG (06412 UT) TAKE 1 CAPSULE BY MOUTH EVERY [...] Status Risk Notes Problem Morbid obesity (disorder) (753670633) Morbid (severe) obesity due to excess calories (E66.01) Active confirmed Problem Secondary amenorrhea (792981761) Secondary amenorrhea (N91.1) Active confirmed Problem Vitamin D deficiency (02318921) Vitamin D insufficiency (E55.9) Active confirmed Problem Anxiety (52020082) Anxiety (F41.9) Active confirmed Problem Schizophrenia (49447699) Schizophrenia (F20.9) Active confirmed Problem Menstrual disorder (579539134) Irregular menses (N92.6) Active confirmed Problem Overweight (664750471) Over weight (E66.3) Active confirmed Problem Depressive disorder (disorder) (09272626) Depression, unspecified depression type (F32.9) 03/24/20 20 Active confirmed Problem Tension headache (147607292) Tension headache (G44.209) Active confirmed Problem Obese class I (finding) (044186652933868) Obesity (BMI 30.0-34.9) (E66.9) Active confirmed Problem Schizophrenia (40972789) Schizophrenia, unspecified type (F20.9) Active confirmed Problem Migraine (63804628) Migraine without status migrainosus, not intractable, unspecified migraine type (G43.909) Active confirmed Problem Tobacco use (947038819) Tobacco use disorder (F17.200) Active confirmed Problem Pain in female genitalia on intercourse (70032425) Dyspareunia in female (N94.10) Active confirmed Problem Obesity (988234110) Obesity, unspecified classification, unspecified obesity type, unspecified whether serious comorbidity present (E66.9) Active confirmed Problem Disorder of left patellofemoral joint (615373646104569) Patellofemoral syndrome, left (M22.2X2) Active confirmed Problem Constipation by delayed colonic transit (54416765) Constipation by delayed colonic transit (K59.01) Active confirmed Problem Disorder of sacrum (41898510) 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) Active confirmed Problem Body mass index 40+ - severely obese (413635228) Body mass index [BMI] 40.0-44.9, adult (Z68.41) Active confirmed Vital Signs Heart Rate 64 /min 11/29/2024 Temperature 98.1 degrees Fahrenheit 11/29/2024 Respiratory Rate 18 /min 11/29/2024 Oximetry 99 % 11/29/2024 Blood pressure diastolic 58 mm Hg 11/29/2024 Height 60 in 11/29/2024 Blood pressure systolic 108 mm Hg 11/29/2024 Weight 204.2 lbs 11/29/2024 BMI 39.88 kg/m2 11/29/2024 Encounters Encounter Location Date Provider Diagnosis [address] [address] 12/09/2023 Arif Habib Schizophrenia F20.[address] [address] 12/22/2023 Michel Neff Morbid (severe) obesity due to excess calories E66.01 ; Migraine without status migrainosus, not intractable, unspecified migraine type G43.909 ; Patellofemoral arthralgia of right knee M25.561 and Tinea corporis B35.[address] [address] 02/10/2024 Michel Neff Patellofemoral arthralgia of right knee M25.561 ; Tension headache G44.209 ; Tinea corporis B35.4 and Morbid (severe) obesity due to excess calories E66.[address] [address] 02/17/2024 Arif Habib Schizophrenia F20.9 and Nutritional counseling Z71.[address] [address] 03/08/2024 Michel Neff Nutritional counseling Z71.3 and Morbid (severe) obesity due to excess calories E66.[address] [address] 03/16/2024 Arif Habib Nutritional counseling Z71.3 and Schizophrenia F20.9 [facility] [address] [place] [address] 03/19/2024 Michel Neff Epigastric pain R10.13 ; Dyspareunia in female N94.10 ; Irregular menses N92.6 ; Tension headache G44.209 ; Nutritional counseling Z71.3 and Morbid (severe) obesity due to excess calories E66.[address] [place] [address] 03/25/2024 Michel Neff Tension headache G44.209 and Epigastric pain R10.[address] [address] 04/20/2024 Arif Habib Nutritional counseling Z71.3 and Schizophrenia F20.[address] [address] 04/26/2024 Michel Neff Dorsalgia of multipl e sites in spine M54.9 and Nutritional counseling Z71.3 [facility] [address] [place], [place] [address] [address] 06/11/2024 Michel Neff Migraine without status migrainosus, not intractable, unspecified migraine type G43.909 ; Obesity, unspecified classification, unspecified obesity type, unspecified whether serious comorbidity present E66.9 and Dyspareunia in female N94.[address] [address] 06/15/2024 Arif Habib Nutritional counseling Z71.3 and Schizophrenia F20.[address] [address] 07/08/2024 Michel Neff Ingrown right greate r toenail L60.0 ; Cellulitis L03.90 ; Morbid (severe) obesity due to excess calories E66.01 and Nutritional counseling Z71.[address] [address] 07/19/2024 Michel Neff Over weight E66.3 ; Patellofemoral syndrome, left M22.2X2 and Schizophrenia F20.[address] [place] [address] 08/16/2024 Arif Habib [address] [place] [address] 08/17/2024 Arif Habib Schizophrenia F20.[address] [address] 09/14/2024 Arif Habib Nutritional counseling Z71.3 and Schizophrenia F20.[address] [place] [address] 09/15/2024 Michel Neff Over weight E66.3 ; Hair loss L65.9 ; Dorsalgia of multiple sites in spine M54.9 ; Migraine without status migrainosus, not intractable, unspecified migraine type G43.909 and Patellofemoral syndrome, left M22.2X2 [address] [place] [address] 11/16/2024 Arif Habib Over weight E66.3 ; Nutritional counseling Z71.3 and Schizophrenia F20.[address] [address] 11/18/2024 Michel Neff Migraine without status migrainosus, not intractable, unspecified migraine type G43.909 ; Epigastric pain R10.13 ; Obesity (BMI 30.0-34.9) E66.9 and Over weight E66.3 [facility] [place] [address] 11/29/2024 Michel Neff Sciatica associated with disorder of lumbosacral spine M53.87 [facility] [address] [place] [address] 11/29/2024 Michel Neff Abdominal wall herni a K43.9 [facility] [address] [place] [address] 12/31/2023 Michel Neff [facility] [address] [place] [address] 01/22/2024 Jacy Wen [address] [place] [address] 04/20/2024 Freddie Gomes [address] [place] [address] 07/08/2024 Michel Neff [address] [address] 08/05/2024 Michel Neff Morbid (severe) obesity due to excess calories E66.01 [facility] [address] [place] [address] 11/29/2024 Michel Neff [address] [address] 11/30/2024 Michel Neff Assessments Encounter Date Diagnosis (ICD Code) Assessment Notes Treatment Notes Treatment Clinical Notes Section Notes 06/11/2024 Migraine without status migrainosus, not intractable, unspecified migraine type (ICD-10 - G43.909) 02/10/2024 Patellofemoral arthralgia of right knee (ICD-10 - M25.561) 11/29/2024 Abdominal wall hernia (ICD-10 - K43.9) 07/08/2024 Ingrown right greater toenail (ICD-10 - L60.0) WARM SOAKS QID X 15 MIN 07/19/2024 Over weight (ICD-10 - E66.3) 07/19/2024 Patellofemoral syndrome, left (ICD-10 - M22.2X2) ICE OR HEAT, AVOID PRESSURE TO PATELLA, STOP IBUPROFEN AND TRY MELOXICAM, DO WALKING AND STRAIGHT LEG RAISES TO STRENGHTEN QUADS. 07/08/2024 Cellulitis (ICD-10 - L03.90) 12/22/2023 Morbid (severe) obesity due to excess calories (ICD-10 - E66.01) 12/22/2023 Migraine without status migrainosus, not intractable, unspecified migraine type (ICD-10 - G43.909) 11/29/2024 Sciatica associated with disorder of lumbosacral spine (ICD-10 - M53.87) CALLED [facility] AND THEY WILL PERFORM A STAT MRI OF THE LS SPINE LATER THIS AM. MRI WITH L3-4 BILATERAL FORAMINAL STENOSIS DUE TO DISC PROTRUSION, L4-5 MIL LEFT FORMINAL DISC PROTRUSION. TO REST AND REMAIN OFF WORK FOR 2 WEEKS 12/09/2023 Schizophrenia (ICD-10 - F20.9) 02/10/2024 Tension headache (ICD-10 - G44.209) 06/15/2024 Nutritional counseling (ICD-10 - Z71.3) 06/11/2024 Obesity, unspecified classification, unspecified obesity type, unspecified whether serious comorbidity present (ICD-10 - E66.9) 04/26/2024 Dorsalgia of multiple sites in spine (ICD-10 - M54.9) DISCUSSED INTERMITTENT HEAT AND STRETCHES 03/25/2024 Epigastric pain (ICD-10 - R10.13) 03/25/2024 Tension headache (ICD-10 - G44.209) 03/19/2024 Epigastric pain (ICD-10 - R10.13) DDX: GASTRITIS (POSSIBLY DUE TO IBUPROFEN USE), PUD, CHOLECYSTITIS (POSSIBLY RELATED TO WT LOSS), PANCREATITIS (POSSIBLY RELATED TO OZEMPIC) STOP IBUPROFEN, TRIAL OF OMEPRAZOLE. 03/19/2024 Dyspareunia in female (ICD-10 - N94.10) POSSIBLE EARLY PERIMENOPAUSE WITH IRREGULAR MENSES. SHE WILL ASK MOTHER ABOUT WHETHER SHE HAD EARLY MENOPAUSE. 03/16/2024 Nutritional counseling (ICD-10 - Z71.3) 03/08/2024 Morbid (severe) obesity due to excess calories (ICD-10 - E66.01) 03/08/2024 Nutritional counseling (ICD-10 - Z71.3) 02/17/2024 Schizophrenia (ICD-10 - F20.9) Continue current treatment. Side effects discussed. Supportive treatment provided 04/20/2024 Nutritional counseling (ICD-10 - Z71.3) 11/18/2024 Epigastric pain (ICD-10 - R10.13) 11/18/2024 Migraine without status migrainosus, not intractable, unspecified migraine type (ICD-10 - G43.909) 11/16/2024 Over weight (ICD-10 - E66.3) 09/15/2024 Over weight (ICD-10 - E66.3) MEDICALLY STABLE FOR PLANNED BARIATRIC SURGERY 09/15/2024 Hair loss (ICD-10 - L65.9) 09/14/2024 Nutritional counseling (ICD-10 - Z71.3) 08/17/2024 Schizophrenia (ICD-10 - F20.9) 08/05/2024 Morbid (severe) obesity due to excess calories (ICD-10 - E66.01) 06/15/2024 Schizophrenia (ICD-10 - F20.9) Continue current treatment. Side effects discussed. Supportive treatment provided 09/15/2024 Dorsalgia of multiple sites in spine (ICD-10 - M54.9) 11/16/2024 Nutritional counseling (ICD-10 - Z71.3) 04/20/2024 Schizophrenia (ICD-10 - F20.9) Continue current treatment. Side effects discussed. Supportive treatment provided 11/18/2024 Obesity (BMI 30.0-34.9) (ICD-10 - E66.9) 02/17/2024 Nutritional counseling (ICD-10 - Z71.3) 02/10/2024 Tinea corporis (ICD-10 - B35.4) 03/19/2024 Irregular menses (ICD-10 - N92.6) 04/26/2024 Nutritional counseling (ICD-10 - Z71.3) 09/14/2024 Schizophrenia (ICD-10 - F20.9) Continue current treatment. Side effects discussed. Supportive treatment provided. Increase Paxil 60 mg daily due to depression. 06/11/2024 Dyspareunia in female (ICD-10 - N94.10) 03/16/2024 Schizophrenia (ICD-10 - F20.9) Continue current treatment. Side effects discussed. Supportive treatment provided 07/19/2024 Schizophrenia (ICD-10 - F20.9) 12/22/2023 Patellofemoral arthralgia of right knee (ICD-10 - M25.561) 07/08/2024 Morbid (severe) obesity due to excess calories (ICD-10 - E66.01) 12/22/2023 Tinea corporis (ICD-10 - B35.4) 07/08/2024 Nutritional counseling (ICD-10 - Z71.3) 03/19/2024 Tension headache (ICD-10 - G44.209) 02/10/2024 Morbid (severe) obesity due to excess calories (ICD-10 - E66.01) 11/16/2024 Schizophrenia (ICD-10 - F20.9) Continue current treatment. Side effects discussed. Supportive treatment provided. Add Buspar 10 mg BID for anxiety. 09/15/2024 Migraine without status migrainosus, not intractable, unspecified migraine type (ICD-10 - G43.909) 09/15/2024 Patellofemoral syndrome, left (ICD-10 - M22.2X2) [...] Name:Michel Neff , 12/08/2024 09:20:00 AM, [address] [facility] , [place], [address], Insurance Providers Payer Name Payer Address Payer Phone Subscriber Number Group Number Insured Name Patient Relationship to Insured Coverage Start Date Coverage End Date [facility] Att Claims Department [address] [place] [address] [id number] Manisha Lundy Self - patient is the insured 5 5 [facility] [address] [place] [address] [id number] Manisha Lundy Self - patient is the insured 4 5 MEDICAID [address] [place] [address] [id number] Manisha Lundy Self - patient is the insured 4 5 [facility] [address] [place] [address] [id number] Manisha Lundy Self - patient is the insured 5 5 MEDICAID [address] [place] [address] [id number] Manisha Lundy Self - patient is the insured 5 [facility] Attn Claims Department [address] [place] [address] [id number] Manisha Lundy Self - patient is the insured 2 4 [facility] Attn Claims Department [address] [place] [address] [id number] Manisha Lundy Self - patient is the insured 5 5 [facility] [address] [place] [address] [id number] Manisha Lundy Self - patient is the insured 5 5 Medications Administered Medication Instructions Date of Administration Dosage Notes Invega Sustenna 05/23/2020 156 mg Manufact by [employer]. Pt brett wel. 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 Pt voiced no [...] mg Pt brett we ll. Manufact by [employer] Invega Sustenna 04/08/2023 156 mg Pt brett we ll. Manufact by [employer]. Invega Sustenna 05/07/2023 156 mg Pt brett we ll. Invega Sustenna 07/01/2023 156 mg Manufact by [employer] Pt brett well. Invega Sustenna 07/30/2023 117 mg Pt brett we ll. Manufact by [employer] Invega Sustenna 08/26/2023 117 mg Manufact by [employer] Pt brett well. Invega Sustenna 10/21/2023 117 mg Manufact by [employer] Pt brett well. Invega Sustenna 12/09/2023 117 mg Pt brett we ll. [facility] [employer] [facility] 02/17/2024 117 mg Manufact by [employer] Pt brett well. Invega Sustenna 03/16/2024 117 mg Pt brett we ll. Invega Sustenna 04/20/2024 117 mg Pt brett we ll. Invega Sustenna 06/15/2024 117 mg Manufact by [employer] Pt brett well. Invega Sustenna 07/19/2024 117 mg Pt brett we ll. Invega Sustenna 08/17/2024 117 mg Pt brett we ll. Invega Sustenna 09/14/2024 117 mg Pt brett we ll. Manufact by [employer] [facility] (General) History Medical History History ICD Code anxiety Surgical History Surgery Date(Month/Year) 2019 tubal ligation 2019 Hospitalization History Reason Date(Month/Year) 2019 Urgent care for toothache Nov 2023
--- OUTSIDE RECORDS SUMMARY | 2024-12-07 06:22 | XMS_ITS | Clinical Summary ---
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
--- OUTSIDE RECORDS SUMMARY | 2024-12-07 06:23 | XMS_ITS | Clinical Summary ---
Author Organization [facility] Address [facility] [place] [address] Care Team Providers Care Eyelet Cutter Name Role Phone Michel Neff MD Primary Care Provider [phone] Allergies No known active allergies Medications Invega Sustenna 117 mg/0.75 mL syringe 4 Active meloxicam (MOBIC) 15 mg tablet Take 1 tablet (15 mg total) by mouth daily 5 Active ketoconazole (NIZORAL) 2 % cream APPLY TOPICALLY TO THE AFFECTED AREA DAILY 5 Active PARoxetine (PAXIL) 40 mg tablet daily Active hydrOXYzine (ATARAX) 25 mg tablet every 12 hours 4 Active topiramate (TOPAMAX) 100 mg tablet Take 1 tablet (100 mg total) by mouth daily 5 Active traZODone (DESYREL) 50 mg tablet Take 1 tablet (50 mg total) by mouth nightly 5 Active docusate sodium (COLACE) 100 mg capsuleIndicatio ns:constipation Take 1 capsule (100 mg total) by mouth 2 (two) times a day for 7 days 14 capsule 5 Active hyoscyamine (LEVSIN) 0.125 mg tabletIndication s:Urinary Incontinence Take 1 tablet (0.125 mg total) by mouth every 4 (four) hours as needed for cramping (stomach spasms, hiccups) for up to 3 days 18 tablet 5 Active HYDROcodone-acet aminophen (NORCO) 5-325 mg per tablet 0 5 Active Narcan 4 mg/actuation spray,non-aeroso l 0 5 Active acetaminophen (TYLENOL) 500 mg tablet TAKE 2 TABLETS BY MOUTH EVERY 8 HOURS NEEDED FOR PAIN OR FEVER 5 025 Discontinu ed(Stop Taking at Discharge) amoxicillin-clav ulanate (AUGMENTIN) 875-125 mg per tablet Take 1 tablet by mouth 2 (two) times a day 5 025 Discontinu ed(Therapy completed) HYDROcodone-acet aminophen (NORCO) 5-325 mg per tabletIndication s:Pain Take 1 tablet by mouth every 6 (six) hours as needed for pain for up to 5 days 20 tablet 5 025 ondansetron (ZOFRAN) 4 mg tablet Take 1 tablet (4 mg total) by mouth every 6 (six) hours as needed for nausea or vomiting for up to 14 days 30 tablet 5 025 Active Problems Problem Noted Date Diagnosed [...] stay for the surgery. We we will estate planning counselor the patient to avoid for 18 [...] Type Department Care Team Description [address] [address] Raul Askew MD 5 9:00 AM CDT Office Visit [address] [address] Raul Askew MD Morbid obesity due to excess calories (HCC) (Primary Dx); Status post gastric surgery 5 [facility] Post Discharge Follow up phone call [facility] Surgery [facility] 1 [place] [address] Simona Rivera 5 10:46 AM CDT Anesthesia Event [facility] Operating Room 1 [place] [address] Amarjit Borges MD Kory, Christopher James, MD 5 10:30 AM CDT - 5 12:30 PM CDT Surgery [facility] Operating Room 1 [place] [address] Raul Askew MD LAPAROSCOPIC GASTRECTOMY - SLEEVE with hiatal hernia repair 5 6:33 AM CDT - 5 3:49 PM CDT Hospital Encounter [facility] Surgery [facility] 1 [place] [address] Raul Askew MD Morbid obesity (HCC) Discharge Disposition: Discharge to home or self care 5 8:30 AM CDT Office Visit [address] [address] Raul Askew MD Morbid obesity due to excess calories (HCC) (Primary Dx) 5 11:38 AM CDT - 5 11:59 PM CDT Hospital Encounter [facility] Nutrition and Diabetic Education 1 [facility] Room [address] [place] [address] Sanchez, Nubia Roberts RD Discharge Disposition: Discharge to home or self care 5 11:20 AM CDT Office Visit [address] [place] [address] Raul Askew MD Morbid obesity due to excess calories (HCC) (Primary Dx) 5 12:25 PM CDT Anesthesia Event [address] [address] Cuauhtemoc Gaona MD 5 12:00 PM CDT - 5 12:30 PM CDT Surgery [address] [address] Raul Askew MD ESOPHAGOGASTRODUODENOSCOPY BIOPSY 5 11:00 AM CDT - 5 1:10 PM CDT Hospital Encounter [address] [address] Raul Askew MD Heartburn Discharge Disposition: Discharge to home or self care 5 10:05 AM CDT Lab [address] Morbid obesity due to excess calories (HCC) 5 9:40 AM CDT Office Visit [address] [place] [address] Raul Askew MD Morbid obesity due to excess calories (HCC) (Primary Dx) from Last 3 Months Surgical History Surgery Date Site/Laterality Comments SECTION TUBAL LIGATION CHOLECYSTECTOMY 09/28/2024 [facility] SLEEVE GASTROPLASTY 11/04/2024 Medical History Medical History [...] on file 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 Gender Identity Not on file Sexual Orientation [...] 11/10/2024 1:17 PM CDT Morbid obesity (HCC) LA AN ELECTIVE ENDOTRACHEAL AIRWAY Routine 11/10/2024 11:27 [...] BLES Final Result [facility] ([place]) 1 [facility] Department of Laboratories [place], [place] [id number] * (ABNORMAL) CBC without differential (11/11/2024 4:05 [...] RDW CV 12.4 11.1 - 14.9 % [facility] ([place]) RDW SD 40.9 35.7 - 48.1 fL [facility] ([place]) NRBC abs 0.00 0.00 - 0.01 K/cumm [facility] ([place]) Blood 11/11/2024 4:05 AM CDT 11/11/2024 5:31 AM CDT us Raul Askew MD LAB BLOOD ORDERA BLES Final Result [facility] ([place]) 1 [facility] [place] [address] * Phosphorus (11/11/2024 4:05 AM CDT) Phosphorus, pl 3.3 2.3 - 4.5 mg/dL [facility] ([place]) Blood 11/11/2024 4:05 AM CDT 11/11/2024 5:31 AM CDT us Raul Askew MD LAB BLOOD ORDERA BLES Final Result Performing Organization Address City/[facility] Co de Phone Number [facility] ([place]) 1 [facility] [place] [address] * Magnesium (11/11/2024 4:05 AM CDT) Magnesium 1.8 1.4 - 2.5 mg/dL [facility] ([place]) Blood 11/11/2024 4:05 AM CDT 11/11/2024 5:31 AM CDT Raul Askew MD LAB BLOOD ORDERA BLES Final Result Performing Organization Address City/[facility]/ZIP Co de Phone Number [facility] ([place]) 1 [facility] [place] [address] * (ABNORMAL) Basic metabolic panel (11/11/2024 4:05 AM CDT) Sodium 140 135 - 145 mmol/L [facility] ([place]) Potassium, pl 3.8 3.3 - 4.9 mmol/L [facility] ([place]) Chloride 106 97 - 110 mmol/L [facility] CO2 21(L) 22 - 32 mmol/L [facility] ([place]) Anion gap 13 2 - 15 mmol/L [facility] ([place]) BUN 7 6 - 25 mg/dL [facility] Creatinine 0.44(L) 0.60 - 1.10 mg/dL [facility] ([place]) Glucose 86 70 - 199 mg/dL [facility] ([place]) Comment: Interpretive Data Fasting glucose >/= [...] 2022. Calcium 9.4 8.5 - 10.3 mg/dL [facility] ([place]) Blood 11/11/2024 4:05 AM CDT 11/11/2024 5:31 AM CDT us Raul Askew MD LAB BLOOD ORDERA BLES Final Result [facility] ([place]) 1 [facility] Department [place] [address] * Surgical pathology (11/10/2024 1:17 PM CDT) Tissue (Stomach - Subtotal / Total Resection, non-Tumor) 11/10/2024 11:12 AM CDT Comment:Placed in formalin a t time of drop off Narrative PATHOLOGY [facility] ([place]) - 11/12/2024 12:55 PM CDT EPIC results best viewed via link to PDF [facility] Department of Pathology [address] [place] [address] Note to Patients: This report may contain [...] Final Report Patient Name: MANISHA JIMÉNEZ Address: [address] [place] [address] Gender: F : 1990 (Age: 34) Service: Surgery Location: [facility] Hospital #: [id number] Patient Type: [facility] Taken: 11/10/2024 Received: 11/10/2024 Accessioned: 11/10/2024 Reported: [...] Center as part of an ongoing quality assurance supervisor trim program and in compliance with federally mandated [...] characteristics determined by the Surgical Pathology Department [facility]. It has not been cleared or approved by the U. S. Food and Drug Administration. Note for decalcified specimens: This assay has not been validated on decalcified tissues. Results should be interpreted with caution given the possibility of false negativity on decalcified specimens Raul Askew MD LAB PATHOLOGY OR DERABLES Final Result Performing Organization Address City/State/[facility] Co de Phone Number PATHOLOGY [facility] ([place] [phone] * LA AN ELECTIVE ENDOTRACHEAL AIRWAY (11/10/2024 11:27 AM [...] between attempts: none Planned trial extubation: yes Amarjit Borges MD ANESTHESIA ORDERABLES Fi nal Result * ABO / Rh Confirmation Testing (11/10/2024 8:49 AM CDT) ABO/Rh Confirmation O Positive [facility] Blood 11/10/2024 8:49 AM CDT 11/10/2024 9:34 AM CDT Raul Askew MD LAB BLOOD ORDERA BLES Final Result [facility] ([place]) 1 [facility] Department [place] [address] [facility] * eGFR (11/10/2024 8:48 AM CDT) [...] ORDERA BLES Final Result Performing Organization Address [facility]/ZIP Co de Phone Number [facility] ([place]) 1 [facility] [place] [address] * ABO/Rh (11/10/2024 8:48 AM CDT) ABO/Rh O Positive Blood 11/10/2024 8:48 AM CDT 11/10/2024 8:53 AM CDT Narrative [facility] ([place]) - 11/10/2024 9:33 AM CDT Has the patient had Daratumumab or Isatuximab in the past 6 months?->Unknown Raul Askew MD LAB BLOOD BANK T EST ORDERABLES Final Result Performing Organization Address [facility] Co de Phone Number [facility] ([place]) 1 [place] [address] * Antibody screen (11/10/2024 8:48 AM CDT) Pathologist [facility] Antonio, indirect, Gel Interpretation Negative ABSC Blood 11/10/2024 8:48 AM CDT 11/10/2024 8:53 AM CDT Narrative [facility] ([place]) - 11/10/2024 9:33 AM CDT Has the patient had Daratumumab or Isatuximab in the past 6 months?->Unknown Raul Askew MD LAB BLOOD BANK T EST ORDERABLES Final Result Performing Organization Address City/[facility]/ZIP Co de Phone Number [facility] ([place]) 1 [facility] [place] [address] * (ABNORMAL) Basic metabolic panel (11/10/2024 8:48 AM CDT) Sodium 138 135 - 145 mmol/L [facility] ([place]) Potassium, pl 3.3 3.3 - 4.9 mmol/L [facility] ([place]) Chloride 105 97 - 110 mmol/L [facility] ([place] CO2 23 22 - 32 mmol/L [facility] ([place]) Anion gap 10 2 - 15 mmol/L [facility] ([place]) BUN 15 6 - 25 mg/dL [facility] ([place]) Creatinine 0.52(L) 0.60 - 1.10 mg/dL [facility] ([place]) Glucose 91 70 - 199 mg/dL [facility] ([place]) Comment: Interpretive Data Fasting glucose >/= [...] 2022. Calcium 10.0 8.5 - 10.3 mg/dL [facility] ([place]) Blood 11/10/2024 8:48 AM CDT 11/10/2024 8:53 AM CDT us Raul Askew MD LAB BLOOD ORDERA BLES Final Result [facility] ([place]) 1 [facility] Department [place] [address] * EGD (09/07/2024 11:57 AM CDT) Anatomical Region Laterality Modality Other Narrative Procedure Note Raul Askew MD - 09/07/2024 11:57 AM CDT [facility] Patient Name: Manisha Jiménez Procedure Date: 09/07/2024 11:57 AM Date of : 1990 Admit Type: Outpatient Age: 34 Gender: Female Attending MD: Raul Askew M.D. Room: [facility] ENDOSCOPY ROOM 2 Note Status: Finalized Patient [...] passed under direct vision. The Endoscope [id number] was introduced through the mouth, and advanced [...] 11:57 AM Procedure Code(s): --- Professional --- 94606, Esophagogastroduodenoscopy, flexible, transoral; with biopsy, single or multiple --- Technical --- 18613, Esophagogastroduodenoscopy, flexible, transoral; with biopsy, single or multiple Diagnosis Code(s): --- Professional --- K31.89, Other diseases of stomach and duodenum K22.89, Other specified disease of esophagus --- Technical --- K31.89, Other diseases of stomach and duodenum K22.89, Other specified disease of esophagus CPT copyright 2020 [employer]. All rights reserved. The codes documented in this report are preliminary and upon flow coordinator reviewmay be revised to meet current compliance requirements. Recognized by the [employer] for promoting quality in endoscopy us Raul Askew MD ENDOSCOPY PROCED URES Final Result * Thyroid Function Johnston (09/07/2024 10:11 AM CDT) TSH 0.35 0.30 - 4.20 mcIUnit/mL Blood 09/07/2024 10:1 1 AM CDT 09/07/2024 1:10 PM CDT Raul Askew MD LAB BLOOD ORDERA BLES Final Result Performing Organization Address City/[facility]/ZIP Co de Phone Number [facility] ([place] [address] [place] [phone] * Iron profile w/ IBC (09/07/2024 10:11 AM CDT) Iron 79 35 - 145 mcg/dL TIBC 312 250 - 400 mcg/dL [facility]) Transferrin saturation 25 20 - 50 % [facility] ([place]) Blood 09/07/2024 10:1 1 AM CDT 09/07/2024 1:10 PM CDT Raul Askew MD LAB BLOOD ORDERA BLES Final Result Performing Organization Address [facility] Co de Phone Number [facility] ([place]) [address] [place] [phone] * Vitamin A (09/07/2024 10:11 AM CDT) Pathologist [facility] Vitamin A 35.8 32.5 - 78.0 mcg/dL [facility] Lab Comment: ADDITIONAL INFORMATION This test was developed and its performance characteristics determined by [facility] in a manner consistent with CLIA requirements. This test has not been cleared or approved by the U.S. Food and Drug Administration. Test Performed by: [facility] - [place] [id number] [place] [address] Cement Gun Operator: Bharathi Luna Ph.D.; CLIA# [id number] Blood 09/07/2024 10:1 1 AM CDT 09/07/2024 1:10 PM CDT Raul Askew MD LAB BLOOD ORDERA BLES Final Result Performing Organization Address City/[facility]/ZIP Co de Phone Number [facility] ([place]) 1 [facility] [place] [address] [facility] * (ABNORMAL) Vitamin D 25 hydroxy (09/07/2024 10:11 AM CDT) Pathologist [facility] Vitamin D 25-OH 14(L) 30 - 80 ng/mL Blood 09/07/2024 10:1 1 AM CDT 09/07/2024 1:10 PM CDT Raul Askew MD LAB BLOOD ORDERA BLES Final Result Performing Organization Address [facility] de Phone Number [facility] ([place]) 1 [facility] [place] [address] * Vitamin B1 (09/07/2024 10:11 AM CDT) [facility] Thiamine (Vit B1) 100 70 - 180 nmol/L [facility] Comment: ADDITIONAL INFORMATION This test was developed and its performance characteristics determined by [facility] in a manner consistent with CLIA requirements. This test has not been cleared or approved by the U.S. Food and Drug Administration. Test Performed by: [facility] - [address] [address] Cement Gun Operator: Bharathi Luna Ph.D.; CLIA# [id number] Blood 09/07/2024 10:1 1 AM CDT 09/07/2024 1:00 PM CDT Raul Askew MD LAB BLOOD ORDERA BLES Final Result Performing Organization Address [facility] Co de Phone Number [facility] ([place]) 1 [facility] [place] [address] [facility] ref [facility] * Hemoglobin A1c (09/07/2024 10:11 AM CDT) Hgb A1C 4.4 4.0 - 5.6 % Estimated Average Glucose 80 mg/dL [facility] ([place]) Comment: The ADA recommends reporting an estimated Average Glucose (eAG) with all Hemoglobin A1c results using the equation derived from a study of 507 normal and diabetic adults. Minority populations were underrepresented and children were not included. (Diabetes Care 31:9125-9839, 2008). The eAG is not equivalent to a fasting glucose. Blood 09/07/2024 10:1 1 AM CDT 09/07/2024 1:10 PM CDT Raul Askew MD LAB BLOOD ORDERA BLES Final Result Performing Organization Address City/[facility]/ZIP Co de Phone Number [facility] ([place]) 1 [place] [address] * Glucose, fasting (09/07/2024 10:11 AM CDT) Glucose, fasting 78 70 - 99 mg/dL Blood 09/07/2024 10:1 1 AM CDT 09/07/2024 1:10 PM CDT Raul Askew MD LAB BLOOD ORDERA BLES Final Result [facility] ([place]) 1 [place] [address] * Folate (09/07/2024 10:11 AM CDT) Folic acid 10.3 >=5.0 ng/mL Comment:Slightly Hemolyzed S pecimen. Results may be affected. Blood 09/07/2024 10:1 1 AM CDT 09/07/2024 1:10 PM CDT Raul Askew MD LAB BLOOD ORDERA BLES Final Result [facility] ([place]) 1 [facility] [place] [address] * Ferritin (09/07/2024 10:11 AM CDT) Ferritin 90 15 - 150 ng/mL Blood 09/07/2024 10:1 1 AM CDT 09/07/2024 1:10 PM CDT Raul Askew MD LAB BLOOD ORDERA BLES Final Result Performing Organization Address City/[facility]/ZIP Co de Phone Number [facility] ([place]) 1 [facility] [place] [address] * Vitamin B12 (09/07/2024 10:11 AM CDT) Vitamin B12 534 230 - 1,250 pg/mL Blood 09/07/2024 10:1 1 AM CDT 09/07/2024 1:10 PM CDT Raul Askew MD LAB BLOOD ORDERA BLES Final Result Performing Organization Address City/[facility]/ZIP Co de Phone Number [facility] ([place]) 1 [facility] [place] [address] * Lipid panel (09/07/2024 10:11 AM CDT) [...] 2023. Non-HDL Cholesterol 94 mg/dL [facility] ([place]) Comment: Interpretive Data Ages < or = [...] on 2017. Chol/HDL ratio 3 [facility] ([place]) Blood 09/07/2024 10:1 1 AM CDT 09/07/2024 1:10 PM CDT us Raul Askew MD LAB BLOOD ORDERA BLES Final Result [facility] ([place]) [address] [place] [address] Department [place] [address] * Surgical pathology (09/07/2024 10:01 AM CDT) Tissue (Gastric/Stomach biopsy) 09/07/2024 12:35 PM CDT Tissue specimen (specimen) ([place], Biopsy) 09/07/2024 12:36 PM CDT Narrative PATHOLOGY [facility] ([place]) - 09/10/2024 10:20 AM CDT EPIC results best viewed via link to PDF [facility] Department of Pathology [address] [place] [id number] Note to Patients: This report may contain [...] Final Report Patient Name: MANISHA JIMÉNEZ Address: [address] [place] [address] Gender: F : 1990 (Age: 34) Service: Surgery Location: [facility] Hospital #: [id number] Patient Type: [facility] Taken: 09/07/2024 Received: 09/08/2024 Accessioned: 09/08/2024 Reported: [...] in two formalin containers labeled MANISHA JIMÉNEZ. Boom. The first container is labeled gastric biopsies [...] Center as part of an ongoing quality assurance supervisor trim program and in compliance with federally mandated [...] characteristics determined by the Surgical Pathology Department [facility]. It has not been cleared or approved by the U. S. Food and Drug Administration. Note for decalcified specimens: This assay has not been validated on decalcified tissues. Results should be interpreted with caution given the possibility of false negativity on decalcified specimens Raul Askew MD LAB PATHOLOGY OR DERABLES Final Result PATHOLOGY [facility] ([place]) 1 [place] [address] from Last 3 Months Insurance [employer] [facility] [facility] Advance Directives For more information, please contact: [phone] * Full Code (Latest Code Status on File) Date Activated Date Inactivated Comments 11/10/2024 2:01 PM 11/11/2024 7:54 PM * Full Code Date Activated Date Inactivated Comments 09/07/2024 11:15 AM 09/07/2024 5:15 PM * Full Code Date Activated Date Inactivated Comments 09/07/2024 11:15 AM 09/07/2024 11:15 AM Care Teams Eyelet Cutter Relationship Specialty Start Date End Date Michel Neff MD [address] [facility] [address] PCP - General Internal Medicine 10/09/23
--- OUTSIDE RECORDS SUMMARY | 2024-12-07 06:23 | XMS_ITS | Clinical Summary ---
Author Organization [facility] Address [address] [place] [address] Care Team Providers Care Animal Doctor Name Role Phone Michel Neff MD Primary Care Provider [phone] Source Comments [facility],non-owned Affiliates and Associated Physician Practices is amultiple site organization consisting of ambulatory clinics and hospital sitesin [place], [place], [place] and [place]. This disclosure is being madepursuant to the Care Everywhere program and may not contain all information available regarding this patient. Last updated 18.[facility] I Had Cancer Allergies No known active allergies Medications * Be aware that medications may not be up to date on this document. Alwaysverify current medications with the patient. oxyCODONE-aceta minophen (Percocet) 5-325 MG tablet Take 1 (one) tablet by mouth every 8 hours as needed for Pain (-Takes it at home for the pain) 5 Suspended topiramate (Topamax) 100 MG tablet Take 1 (one) tablet by mouth once daily -Takes it for migraine 5 Suspended PARoxetine (Paxil) 40 MG tablet Take 1 (one) tablet by mouth once daily -Takes it for anxiety 5 Suspended traZODone (Desyrel) 50 MG tablet Take 1 (one) tablet by mouth at bedtime -for insomnia 5 Suspended cyclobenzaprine (Flexeril) 10 MG tablet Take 1 (one) tablet by mouth at bedtime Back pain 5 Suspended Active Problems Patient Care Coordination No te Formatting of this note migh t be different from the original. 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 Lumbar spinal stenosis 12/05/2024 Constipation 12/05/2024 Iron deficiency anemia 12/05/2024 Hypokalemia 12/05/2024 Polymyositis 12/04/2024 Abnormal maternal serum screening test Obesity affecting in second trimester Encounters Date Type Department Care Team Description 12/04/2024 7:21 PM CDT - Present Hospital Encounter [facility] 4W TELE [address] [place] [address] Rafael Esquivel MD Qazi, Mohsin, MD Mathew, Simi, MD Marudhai, Suganya, MD Hospitalist 12/04/2024 Travel 12/04/2024 Telephone [facility] PHYS STANDARD [address] [place] [address] Rafael Esquivel MD Hospitalization from Last 3 Months Social History Tobacco Use Types Packs/Day Years [...] care, and heating? Not very hard 12/04/2024 [facility] [place] [facility] - Occupational Stress [...] any time in the past 12 m [facility], were you homeless or living in a half-way (including now)? No 12/04/2024 Comments No Sex and Gender Information Value Date Recorded Sex Assigned at Female 12/04/2024 10:53 PM CDT Legal Sex Female 11:31 AM [employer] Gender Identity Not on file Sexual Orientation [...] Mass Index 39.68 12/04/2024 9:58 PM CDT Plan of Treatment Health Maintenance Due Date Last Done Comments HEPATITIS C SCREENING 01/29/2006 DTAP/TDAP/TD VACCINES (1 - Tdap) 02/02/2007 HEPATITIS B VACCINE (1 of 3 - 19+ 3-dose series) 02/02/2007 PAP SMEAR 02/02/2009 HPV VACCINE (1 - 3-dose SCDM series) 02/02/2015 COVID-19 VACCINE (3 - 2023-2 5 season) 2023 10/13/2020, 09/23/2020 DEPRESSION SCREENING 04/14/2024 INFLUENZA VACCINE (#1) 2024 ZOSTER VACCINE (1 of 2) 02/02/2038 HIV SCREENING Completed 12/06/2024 HIB VACCINE Aged Out No longer eligi ble based on patient's age to complete this topic MENINGOCOCCAL (Group B) VACCINE SHARED DECISION-MAKING Aged Out No longer eligible based on patient's age to complete this topic MENINGOCOCCAL GROUPS A/C/Y/W VACCINE Aged Out No longer eligible b ased on patient's age to complete this topic PNEUMOCOCCAL VACCINE Aged Out No long er eligible based on patient's age to complete this topic Procedures * The patient is currently admitted. The information in this section might not be complete until the patient is discharged. Procedure Name Priority Date/Time Associated Diagnosis Comments COMPREHENSIVE METABOLIC PANEL Timed 12/07/2024 4:29 AM CDT CK BLOOD Timed 12/07/2024 4:29 AM CDT RHEUMATOID FACTOR BLOOD QUANTITATIVE AM Draw 12/07/2024 [...] Add on 12/04/2024 8: 46 PM CDT GGT Add on 12/04/2024 8:46 PM CDT FERRITIN Add on 12/04/2024 8:46 PM CDT IRON + TRANSFERRIN PANEL Add on 12/04/2024 8:46 PM CDT HAPTOGLOBIN Add on 12/04/2024 8:46 PM CDT LDH BLOOD Add on 12/04/2024 8:46 PM CDT COMPREHENSIVE METABOLIC PANEL STAT 12/04/2024 8:46 PM CDT CK BLOOD STAT 12/04/2024 8:46 PM CDT CBC W AUTO DIFFERENTIAL STAT 12/04/2024 8:46 PM CDT from Last 3 Months Results * RHEUMATOID FACTOR BLOOD QUANTITATIVE (12/07/2024 4:29 AM CDT) [facility] [place] [facility] Rheumatoid Factor Quantitative <13 <30 IU/mL 12/07/2024 5:34 AM CDT [facility] Blood BLOOD SPECIMEN / Unknown Lab Venipuncture / Unknown 12/07/2024 4:29 AM CDT 12/07/2024 5:13 AM CDT Sanjuana Steele MD LAB - CHEMISTRY ORDERABLES Final Result [facility] [address] [place], [place] [id number] * (ABNORMAL) CBC W AUTO DIFFERENTIAL (12/07/2024 4:29 AM CDT) Only the most recent of2 resultswithin the time period is included. [facility] [place] [facility] WBC 10.5 4.0 - 10.7 x10E9/L 12/07/2024 5:22 AM CDT [facility] RBC Count 3.38(L) 3.90 - 5.20 x10E12/L 12/07/2024 5:22 AM CDT [facility] Hemoglobin 10.2(L) 11.9 - 15.8 g/dL 12/07/2024 5:22 AM CDT [facility] Hematocrit 30.4(L) 34.8 - 46.1 % 12/07/2024 5:[facility] MCV 89.9 80.0 - 98.0 fL 12/07/2024 5:22 [facility] MCH 30.2 26.7 - 33.6 pg 12/07/2024 5:22 [facility] MCHC 33.6 31.7 - 36.3 g/dL 12/07/2024 5:22 AM [facility] RDW-CV 12.9 11.3 - 14.8 % 12/07/2024 5:22 AM [facility] Platelet Count 109(L) 150 - 420 x10E9/L 12/07/2024 5:22 AM [facility] MPV 12.4(H) 7.8 - 11.4 fL 12/07/2024 5:22 AM [facility] Neutrophil % 89.3(H) 41.0 - 74.0 % 12/07/2024 5:22 AM [facility] Lymphocyte % 5.8(L) 17.0 - 47.0 % 12/07/2024 5:22 AM [facility] Monocyte % 2.1(L) 3.0 - 11.0 % 12/07/2024 5:22 AM [facility] Eosinophil % 0.0 0.0 - 7.0 % 12/07/2024 5:22 AM [facility] Basophil % 0.1 0.0 - 1.6 % 12/07/2024 5:22 AM [facility] Immature Granulocytes % 2.7(H) 0.0 - 1.0 % 12/07/2024 5:22 AM [facility] Neutrophil Absolute 9.34(H) 1.60 - 7.50 x10E9/L 12/07/2024 5:22 AM [facility] Lymphocyte Absolute 0.61(L) 1.00 - 4.40 x10E9/L 12/07/2024 5:22 AM [facility] Monocyte Absolute 0.22 0.15 - 1.00 x10E9/L 12/07/2024 5:22 AM [facility] Eosinophil Absolute 0.00 0.00 - 0.60 x10E9/L 12/07/2024 5:22 AM CDT [facility] Basophil Absolute 0.01 0.00 - 0.13 x10E9/L 12/07/2024 5:22 AM T [facility] Blood BLOOD SPECIMEN / Unknown Lab Venipuncture / Unknown 12/07/2024 4:29 AM CDT 12/07/2024 5:12 AM CDT us Asuncion Mireles MD LAB - HEMATOLOGY ORDERABLES Viridiana l Result [facility] [address] [place] [address] * (ABNORMAL) COMPREHENSIVE METABOLIC PANEL (12/07/2024 4:29 AM CDT) Only the most recent of5 resultswithin the time period is included. Glucose 134(H) 70 - 99 mg/dL 12/07/2024 5:44 AM [facility] Sodium 142 136 - 145 mmol/L 12/07/2024 5:44 AM [facility] Potassium 3.5 3.5 - 5.1 mmol/L 12/07/2024 5:44 AM [facility] Chloride 116(H) 98 - 107 mmol/L 12/07/2024 5:44 AM [facility] CO2 18(L) 22 - 29 mmol/L 12/07/2024 5:44 AM [facility] Calcium 8.6 8.4 - 10.4 mg/dL 12/07/2024 5:44 AM [facility] Anion Gap 8 6 - 16 mmol/L 12/07/2024 5:44 AM [facility] BUN 16 5.3 - 18.7 mg/dL 12/07/2024 5:44 AM [facility] Creatinine 0.55(L) 0.57 - 1.11 mg/dL 12/07/2024 5:44 AM [facility] Alkaline Phosphatase 129 40 - 150 U/L 12/07/2024 5:44 AM [facility] ALT 903(H) 6 - 57 U/L 12/07/2024 5:44 AM [facility] AST 899(H) 10 - 48 U/L 12/07/2024 5:44 AM CDT [facility] Protein Total 5.7(L) 6.4 - 8.3 gm/dL 12/07/2024 5:44 AM CDT [facility] Albumin 2.7(L) 3.1 - 4.5 gm/dL 12/07/2024 5:44 AM CDT [facility] Bilirubin Total 0.1(L) 0.2 - 1.2 mg/dL 12/07/2024 5:44 AM CDT [facility] eGFR by CKD-EPI >90 >=90 mL/min/1.7 3 m2 12/07/2024 5:44 AM CDT [facility] Comment:Estimated Glomerular Filtration Rate (eGFR) calculated using the CKD-EPI Creatinine Equation (2020), per the National Kidney Foundation and [place] [employer] Neph[employer] recommendations. Blood BLOOD SPECIMEN / Unknown Lab Venipuncture / Unknown 12/07/2024 4:29 AM CDT 12/07/2024 5:13 AM CDT Asuncion Mireles MD LAB - CHEMISTRY ORDERABLES Final Result Performing Organization Address City/[facility]/ZIP Co de Phone Number [facility] [address] [place] [phone] * (ABNORMAL) CK BLOOD (12/07/2024 4:29 AM CDT) Only the most recent of6 resultswithin the time period is included. CK 25,478(H) 29 - 168 U/L 12/07/2024 6:16 AM CDT [facility] Blood BLOOD SPECIMEN / Unknown Lab Venipuncture / Unknown 12/07/2024 4:29 AM CDT 12/07/2024 5:13 AM CDT Crow Ngo MD LAB - CHEMISTRY ORDERABLES Final Result [facility] [address] [place] [phone] * VITAMIN B12 (12/06/2024 12:40 PM CDT) Pathologist [facility] Vitamin B12 603 213 - 816 pg/mL 12/06/2024 1:58 PM CDT [facility] Blood BLOOD SPECIMEN / Unknown Lab Venipuncture / Unknown 12/06/2024 12:40 PM CDT 12/06/2024 1:04 PM CDT Tessie Contreras PA-C LAB - CHEMISTRY ORDERABL ES Final Result Performing Organization Address [facility] Co de Phone Number [facility] [address] [place] [phone] * HIV-1 HIV-2 ANTIBODY + HIV P24 AG PANEL (12/06/2024 9:03 AM CDT) [facility] [place] [facility] HIV1/2 Ab + P24 Ag Non Reactive Non Reactive 12/06/2024 9:50 AM CDT [facility] Blood BLOOD SPECIMEN / Unknown Lab Venipuncture / Unknown 12/06/2024 9:03 AM CDT 12/06/2024 9:08 AM CDT Narrative [facility] - 12/06/2024 9:50 AM CDT No Laboratory evidence of HIV infection. Result [facility] Asuncion Mireles MD LAB - CHEMISTRY ORDERABLES Final Result Performing Organization Address [facility] de Phone Number [facility] [address] [place] [phone] * (ABNORMAL) ERYTHROCYTE SEDIMENTATION RATE (12/06/2024 9:03 AM CDT) [facility] Erythrocyte Sedimentation Rate Automated 44(H) 0 - 20 MM/HR 12/06/2024 9:16 AM CDT [facility] Blood BLOOD SPECIMEN / Unknown Lab Venipuncture / Unknown 12/06/2024 9:03 AM CDT 12/06/2024 9:08 AM CDT Result [facility] Asuncion Mireles MD LAB - HEMATOLOGY ORDERABLES Viridiana l Result Performing Organization Address [facility]/ZIP Co de Phone Number [facility] [address] [place] [phone] * (ABNORMAL) C-REACTIVE PROTEIN (12/06/2024 7:33 AM CDT) C-Reactive Protein 8.88(H) <=0.50 mg/dL 12/06/2024 9:11 AM CDT [facility] Blood BLOOD SPECIMEN / Unknown Lab Venipuncture / Unknown 12/06/2024 7:33 AM CDT 12/06/2024 8:05 AM CDT Asuncion Mireles MD LAB - CHEMISTRY ORDERABLES Final Result [facility] [address] [place] [address] * IGA BLOOD (12/06/2024 3:09 AM CDT) Only the most recent of2 resultswithin the time period is included. Pathologist [facility] IgA 154 61 - 356 mg/dL 12/06/2024 11:37 AM CDT [facility] Blood BLOOD SPECIMEN / Unknown Lab Venipuncture / Unknown 12/06/2024 3:09 AM CDT 12/06/2024 4:44 AM CDT Salomón Winter MD LAB - CHEMISTRY ORDERABLES F inal Result [address] [address], [facility] [phone] * VINICIUS BLOOD SCREEN W/REFLEX TITER (12/05/2024 8:51 AM CDT) Pathologist [facility] VINICIUS Negative Negative 12/06/2024 10:28 AM CDT [facility] Blood BLOOD SPECIMEN / Unknown Lab Venipuncture / Unknown 12/05/2024 8:51 AM CDT 12/05/2024 9:24 AM CDT Narrative [facility] - 12/06/2024 10:28 AM CDT Methodology: Indirect Immunofluorescence Assay (IFA) utilizing Hep-2-Gamma cells. Asuncion Mireles MD LAB - CHEMISTRY ORDERABLES Final Result [facility] [address] [place] [phone] * (ABNORMAL) URINALYSIS REFLEX TO MICROSCOPIC NO CULTURE (12/05/2024 7:51 AM CDT) Color UA Yellow Yellow, Straw 12/05/2024 8:49 AM CDT [facility] Clarity UA Clear Clear 12/05/2024 8:49 AM CDT [facility] Glucose UA Normal Normal 12/05/2024 8:49 AM CDT [facility] Bilirubin UA Negative Negative 12/05/2024 8:49 AM CDT [facility] Ketone UA 2+(A) Negative 12/05/2024 8:49 [facility] Specific [place] UA 1.008 1.005 - 1.030 12/05/2024 8:49 AM CDT [facility] Blood UA 3+(A) Negative 12/05/2024 8:49 AM CDT [facility] pH UA 6.0 5.0 - 8.0 12/05/2024 8:49 AM CDT [facility] Protein UA 1+(A) Negative 12/05/2024 8:49 AM CDT [facility] Urobilinogen UA 3.0(A) Normal mg/dL 12/05/2024 8:49 AM CDT [facility] Nitrite UA Negative Negative 12/05/2024 8:49 AM T [facility] Leukocyte Esterase UA 75 LALITO/uL(A) Negative 12/05/2024 8:49 AM CDT [facility] RBC UA 6-10(A) 0 - 5 # /hpf 12/05/2024 8:49 AM [facility] WBC UA 11-20(A) 0 - 5 # /hpf 12/05/2024 8:49 AM CDT [facility] Bacteria UA Trace(A) None Seen 12/05/2024 8:49 [address] [facility] Squamous Epithelial Cells 0-2 0 - 5 /hpf 12/05/2024 8:49 AM [facility] Mucus UA 1+ /LPF 12/05/2024 8:49 AM [facility] Urine URINE SPECIMEN OBTAINED BY CLEAN CATCH PROCEDURE / Unknown Collection / Unknown 12/05/2024 7:51 AM CDT 12/05/2024 7:51 AM CDT Narrative [facility] - 12/05/2024 8:49 AM CDT Crow Ngo MD LAB - URINALYSIS ORDERABLES Viridiana l Result Performing Organization Address [facility]/ZIP Co de Phone Number [facility] [address] [place] [address] * CULTURE URINE (12/05/2024 7:51 AM CDT) Pathologist [facility] Culture Urine <10,000 CFU/mL urogenital beth BEN 12/06/2024 3:03 PM CDT [facility]CRO[facility] Urine URINE SPECIMEN OBTAINED BY CLEAN CATCH PROCEDURE / Unknown Collection / Unknown 12/05/2024 7:51 AM CDT 12/05/2024 11:23 AM CDT Asuncion Mireles MD LAB - MICROBIOLOGY ORDERABLES Fi nal Result Performing Organization Address [facility] Co de Phone Number [facility] MICROBIOLOGY [address] [phone] * (ABNORMAL) CBC W/O DIFFERENTIAL (12/05/2024 5:18 AM CDT) Pathologist [facility] WBC 5.7 4.0 - 10.7 x10E9/L 12/05/2024 5:46 AM CDT [facility] RBC Count 3.69(L) 3.90 - 5.20 x10E12/L 12/05/2024 5:46 AM CDT [facility] Hemoglobin 11.2(L) 11.9 - 15.8 g/dL 12/05/2024 5:46 AM CDT [facility] Hematocrit 33.2(L) 34.8 - 46.1 % 12/05/2024 5:46 AM CDT [facility] MCV 90.0 80.0 - 98.0 fL 12/05/2024 5:46 AM CDT [facility] MCH 30.4 26.7 - 33.6 pg 12/05/2024 5:46 AM CDT [facility] MCHC 33.7 31.7 - 36.3 g/dL 12/05/2024 5:46 AM CDT [facility] RDW-CV 12.6 11.3 - 14.8 % 12/05/2024 5:46 AM CDT [facility] Platelet Count 106(L) 150 - 420 x10E9/L 12/05/2024 5:46 AM CDT [facility] MPV 12.1(H) 7.8 - 11.4 fL 12/05/2024 5:46 AM CDT [facility] Blood BLOOD SPECIMEN / Unknown Lab Venipuncture / Unknown 12/05/2024 5:18 AM CDT 12/05/2024 5:27 AM CDT Rafael Esquivel MD LAB - HEMATOLOGY ORDERABLES Fin al Result [facility] [address] [place], [place] [phone] * (ABNORMAL) BASIC METABOLIC PANEL (CALCIUM TOTAL) (12/05/2024 5:18 AM CDT) Glucose 95 70 - 99 mg/dL 12/05/2024 6:04 AM [facility] Sodium 140 136 - 145 mmol/L 12/05/2024 6:04 AM [facility] Potassium 3.6 3.5 - 5.1 mmol/L 12/05/2024 6:04 AM [facility] Chloride 113(H) 98 - 107 mmol/L 12/05/2024 6:04 AM [facility] CO2 16(L) 22 - 29 mmol/L 12/05/2024 6:04 AM [facility] Calcium 8.9 8.4 - 10.4 mg/dL 12/05/2024 6:04 AM [facility] Anion Gap 11 6 - 16 mmol/L 12/05/2024 6:04 AM [facility] BUN 7 5.3 - 18.7 mg/dL 12/05/2024 6:04 AM [facility] Creatinine 0.51(L) 0.57 - 1.11 mg/dL 12/05/2024 6:04 AM [facility] eGFR by CKD-EPI >90 >=90 mL/min/1.7 3 m2 12/05/2024 6:04 AM CDT [facility] Comment:Estimated Glomerular Filtration Rate (eGFR) calculated using the CKD-EPI Creatinine Equation (2020), per the National Kidney Foundation and [place] [employer] Nephrology recommendations. Blood BLOOD SPECIMEN / Unknown Lab Venipuncture / Unknown 12/05/2024 5:18 AM CDT 12/05/2024 5:27 AM CDT Rafael Esquivel MD LAB - CHEMISTRY ORDERABLES Viridiana l Result Performing Organization Address City/[facility]/ZIP Co de Phone Number [facility] [address] [place], [place] [phone] * TSH REFLEX FREE T4 (12/04/2024 8:46 PM CDT) TSH 1.295 0.350 - 4.940 uIU/mL 12/05/2024 1:19 AM CDT [facility] Blood BLOOD SPECIMEN / Unknown Lab Venipuncture / Unknown 12/04/2024 8:46 PM CDT 12/04/2024 8:51 PM CDT Crow Ngo MD LAB - CHEMISTRY ORDERABLES Final Result Performing Organization Address [facility] Co de Phone Number [facility] [address] [place], [place] [phone] * (ABNORMAL) LDH BLOOD (12/04/2024 8:46 PM CDT) LDH 2,169(H) 125 - 220 U/L 12/04/2024 10:36 PM CDT [facility] Blood BLOOD SPECIMEN / Unknown Lab Venipuncture / Unknown 12/04/2024 8:46 PM CDT 12/04/2024 8:51 PM CDT Crow Ngo MD LAB - CHEMISTRY ORDERABLES Final Result Performing Organization Address City/[facility]/ZIP Co de Phone Number [facility] [address] [place] [address] * (ABNORMAL) GGT (12/04/2024 8:46 PM CDT) GGT 45(H) <38 U/L 12/05/2024 1:00 AM CDT [facility] Blood BLOOD SPECIMEN / Unknown Lab Venipuncture / Unknown 12/04/2024 8:46 PM CDT 12/04/2024 8:51 PM CDT Crow Ngo MD LAB - CHEMISTRY ORDERABLES Final Result [facility] [address] [place] [phone] * (ABNORMAL) IRON + TRANSFERRIN PANEL (12/04/2024 8:46 PM CDT) Iron 22(L) 40 - 150 ug/dL 12/05/2024 1:00 AM CDT [facility] Transferrin 150(L) 174 - 382 mg/dL 12/05/2024 1:00 AM CDT [facility] TIBC Calculated 188(L) 240 - 450 ug/dL 12/05/2024 1:00 AM CDT [facility] Iron Saturation % 12(L) 20 - 50 % 12/05/2024 1:00 AM CDT [facility] Blood BLOOD SPECIMEN / Unknown Lab Venipuncture / Unknown 12/04/2024 8:46 PM CDT 12/04/2024 8:51 PM CDT Crow Ngo MD LAB - CHEMISTRY ORDERABLES Final Result [facility] [address] [place], [place] [id number] * HAPTOGLOBIN (12/04/2024 8:46 PM CDT) Haptoglobin 197 35 - 250 mg/dL 12/04/2024 10:32 PM CDT [facility] Blood BLOOD SPECIMEN / Unknown Lab Venipuncture / Unknown 12/04/2024 8:46 PM CDT 12/04/2024 8:51 PM CDT Crow Ngo MD LAB - CHEMISTRY ORDERABLES Final Result [facility] [address] [place] [address] * FERRITIN (12/04/2024 8:46 PM CDT) Ferritin 192 5 - 204 ng/mL 12/05/2024 1:19 AM CDT [facility] Blood BLOOD SPECIMEN / Unknown Lab Venipuncture / Unknown 12/04/2024 8:46 PM CDT 12/04/2024 8:51 PM CDT Crow Ngo MD LAB - CHEMISTRY ORDERABLES Final Result Performing Organization Address City/[facility] Co de Phone Number [facility] [address] [place] [address] from Last 3 Months Insurance SELF PAY NO INSURANCE Member Subscriber Plan / Payer (Ef fective for All Dates) Name:Manisha Lundy Member ID:Not on file Relation to Subscriber:Not on file Name:MANISHA LUNDY Subscriber ID:Not on file (Home) Address: [facility] [address] [place] [phone] Payer ID:Not on file Group ID:Not on file Type:Self Pay Address: [place], [place] - [place] [facility] [employer] MEDICAID - OUT OF STATE Advance Directives * Full Code (Latest Code Status on File) Date Activated Date Inactivated Comments 12/04/2024 9:40 PM Care Teams Animal Doctor Relationship Specialty Start Date End Date Michel Neff MD [address] [facility] [address] [facility] [address] [place] [id number] PCP - General Internal Medicine 12/04/24
[2024-12-07 11:08] LABS: ANA by IFA Rfx Titer/Pattern Negative (.)
[2024-12-08 11:53] LABS: HSV 1 IgG, Type Spec Reactive (Non Reactive); HSV 2 IgG, Type Spec Reactive (Non Reactive)
[2024-12-09 13:08] LABS: Clinical Relevance Notes (.); IgA Anti-Endomysial Ab <2.5 (.); IgG Anti-Endomysial Ab <2.5 (.)
[2024-12-11 10:08] LABS: Vit. B1, Whole Blood 83.2 nmol/L (66.5-200.0)
[2024-12-17 08:36] LABS: Anti-MPO Antibodies <0.2; Anti-PR3 Antibodies <0.2
[2024-12-17 08:37] LABS: Saccharomyces cerevisiae, IgG <20.0
[2024-12-17 08:38] LABS: Saccharomyces cerevisiae, IgA <20.0
== END 2024-12-04 18:34 | disposition short-term general hospital (02) ==
LOC: ANHED 20:50 → ANH3MEDSUR 12-02 06:49
PROVIDERS: Internal Medicine Gastroenterology; Nurse Practitioner; Nurse Practitioner Adult Health; Nurse Practitioner Family; Student in an Organized Health Care Education/Training Program; Admitting Provider Internal Medicine; Emergency Provider Family Medicine; PCP Internal Medicine; Visit Provider Student in an Organized Health Care Education/Training Program
DX: M62.82 Rhabdomyolysis (principal); R74.01 Elevation of levels of liver transaminase levels; G72.89 Other specified myopathies; K59.00 Constipation, unspecified; R31.9 Hematuria, unspecified; R82.90 Unspecified abnormal findings in urine; B85.0 Pediculosis due to Pediculus humanus capitis; K76.0 Fatty (change of) liver, not elsewhere classified; D64.9 Anemia, unspecified; D69.6 Thrombocytopenia, unspecified; M51.26 Other intervertebral disc displacement, lumbar region; G89.29 Other chronic pain; Z98.84 Bariatric surgery status; Z98.890 Other specified postprocedural states; F20.9 Schizophrenia, unspecified; F31.9 Bipolar disorder, unspecified; Z90.49 Acquired absence of other specified parts of digestive tract; Z83.3 Family history of diabetes mellitus; Z80.0 Family history of malignant neoplasm of digestive organs; Z82.69 Family history of other diseases of the musculoskeletal system and connective tissue
CPT/HCPCS: 36415; 74176; 74183; 76705; 80048; 80053; 80074; 80076; 80143; 80307; 81001; 82085; 82306; 82550; 82607; 82746; 82784; 82787; 82977; 83874; 84100; 84425; 85025; 85027; 85055; 85610; 85730; 86015; 86037; 86038; 86140; 86256; 86364; 86381; 86593; 86631; 86632; 86644; 86645; 86664; 86665; 86671; 86695; 86696; 86703; 93970; 96361; 96374; 96375; 99285; A9270; A9577; G0378; G0379; G0432; J2405; J3010; J7030